=== PATIENT | female | born 1975 | race Hispanic/Latino ===

== ENCOUNTER 2018-04-13 13:27 | Inpatient (IN) | payer MEDICAID ==
[2018-04-13] MEDS ORDERED: VASELINE LIP THERAPY TP PRN (13:43)
[2018-04-13] MEDS ORDERED: ARTIFICIAL TEARS OPHTH OINT OU PRN (13:43)
--- NOTE | 2018-04-13 13:57 | Cat Scan Report ---
FINAL REPORT EXAM: CT HEAD/BRAIN WO CON HISTORY: neuro deficits <6hrs or sx present upon awakening TECHNIQUE: CT of the Head without IV contrast. PRIORS: CT head December 26, 2017. FINDINGS: Decreased attenuation regions in the periventricular and subcortical white matter are nonspecific and may represent small vessel ischemic disease, encephalopathy, edema, or a demyelinating process. Smal l vessel ischemic disease (leukoaroaiosis) favored. Vascular calcifications. Right temporal occipital and left occipital encephalomalacia is probably related to chronic ischemia and is unchanged compared to the prior. Also chronic lacunar type infarcts in both basal ganglia and the right thalamus. There is no evidence for acute ischemia. There is no hemorrhage. There is no midline shift. There is no hydrocephalus. There is no mass. Age appropriate perdue-white matter attenuation is noted. Iidy-ut-lrddmacl atrophy. There is no calvarial fracture. The temporal bones demonstrate aerated mastoid air cells. The middle ears appear unremarkable. Paranasal sinuses are unremarkable. Globes are intact. IMPRESSION: No acute intracranial findings. Chronic ischemic disease. Atrophy, mild to moderate.
[2018-04-13 14:01] LABS: Basophils # (Auto) 0.1 K/mm3 (0.0-0.1); Basophils % (Auto) 0.6 % (0.0-1.8); Eosinophils # (Auto) 0.2 K/mm3 (0.0-0.4); Eosinophils % (Auto) 2.1 % (0.0-4.3); Hematocrit 41.8 % (30.3-42.9); Lymphocytes # (Auto) 1.9 K/mm3 (1.2-5.4); Lymphocytes % (Auto) 20.3 % (13.4-35.0); Mean Corpuscular HGB Conc 31 % (30-34); Mean Corpuscular Volume 103 fl (79-97); Monocytes # (Auto) 0.4 K/mm3 (0.0-0.8); Monocytes % (Auto) 3.9 % (0.0-7.3); Platelet Count 238 K/mm3 (140-440); Red Blood Count 4.06 M/mm3 (3.65-5.03); Red Cell Distribution Width 16.8 % (13.2-15.2)
[2018-04-13 14:03] LABS: INR 1.07 (0.87-1.13)
[2018-04-13 14:04] LABS: Partial Thromboplastin Time 28.9 Sec. (24.2-36.6)
[2018-04-13] MEDS: ATIVAN 100 MG in NACL 0.9% 50 ML, VIAFLEX EMPTY CONTAINER 0 ML IV SCH ×2 (14:15→15:38)
--- NOTE | 2018-04-13 14:21 | Emergency Department Report ---
ED General Adult HPI - General Chief complaint: Neuro Symptoms/Deficit Stated complaint: AMS Time Seen by Provider: 04/13/18 13:40 Source: EMS Mode of arrival: Stretcher Limitations: No Limitations - History of Present Illness Initial comments: 42-year-old female who summoned the EMS with a complaint of chest pain. She was loaded into the ambulance whereupon the medics noted that she had apparent conjugate gaze deviation to the right. She was partially able to answer questions but she was becoming altered. In route to the hospital she had a generalized seizure. She was given 2 mg of Ativan and arrived in impending respiratory failure. She was not able to give any historical information as she was obviously postictal and sedated. Limited information was available from a cousin. She believed that the patient had COPD and thought she might be on a mask at night. She is apparently tobacco dependent and presents with a open [employer] cigarette box. Medics additionally tell me that the patient has radiated her duran on her legs. Suspect that she had altered mental status for some time. She was admitted in February 2018 for a febrile illness, CHF and possible pulmonary infection: 41-year-old presented with acute respiratory failure secondary to systolic congestive heart failure. Patient brought and diuresed well placed on diuretics beta natividad. TEOFILO inhibitor added today secondary to history of diabetes and suboptimal control of hypertension. Patient defervesced well over 3-4 days was stable for discharge. Patient also had history of coronary disease at present remains chest pain-free continue to treat conservatively. Chronic kidney disease this also exacerbated patient's volume overload. Patient was stays 5 and electrolytes and renal function improved. While patient will need hemodialysis in the very new future did not needed at this time. 2 and stable for discharge. Disposition: - TO HOME OR SELFCARE -: unknown - Related Data Home Medications Medication Instructions Recorded Confirmed Last Taken Lispro Insulin [Humalog] 15 unit SQ BID 07/17/17 02/17/18 02/16/18 Previous Rx's Medication Instructions Recorded Last Taken Type Aspirin EC [Aspirin Enteric Coated 81 mg PO QDAY #30 tablet 07/22/17 02/17/18 Rx TAB] 81mg Apixaban [Eliquis] 2.5 mg PO BID 60 Days tablet 02/22/18 Unknown Rx AtorvaSTATin [Lipitor] 20 mg PO QHS #30 tablet 02/22/18 Unknown Rx Furosemide [Lasix TAB] 80 mg PO 0600,1800 #30 tablet 02/22/18 Unknown Rx Insulin Glargine,Hum.rec.anlog 20 unit SQ QHS #30 insuln.pen 02/22/18 Unknown Rx [Lantus Solostar] Lisinopril [Zestril TAB] 20 mg PO QDAY #30 tablet 02/22/18 Unknown Rx Lispro Insulin [Humalog] 0 unit SUB-Q ACHS units 02/22/18 Unknown Rx Metoprolol Xl [Metoprolol 25 mg PO QDAY #30 tablet 02/22/18 Unknown Rx SUCCINATE ER TAB] Potassium Chloride [K-Dur] 20 meq PO Q12HR #60 tablet 02/22/18 Unknown Rx hydrALAZINE [Apresoline TAB] 25 mg PO TID #90 tablet 02/22/18 Unknown Rx levETIRAcetam [Keppra TAB] 500 mg PO BID #90 tablet 02/22/18 Unknown Rx oxyCODONE /ACETAMINOPHEN [Percocet 1 tab PO Q6H PRN #30 tablet 02/22/18 Unknown Rx 5/325 mg] Allergies Allergy/AdvReac Type Severity Reaction Status Date / Time No Known Allergies Allergy Verified 06/20/13 01:16 ED Review of Systems ROS: Stated complaint: AMS Other details as noted in HPI Comment: Unobtainable due to pts medical conditions ED Past Medical Hx - Past Medical History Previous Medical History?: Yes Hx Hypertension: Yes Hx CVA: Yes Hx Heart Attack/AMI: Yes Hx Congestive Heart Failure: Yes Hx Diabetes: Yes Hx Deep Vein Thrombosis: No Hx Liver Disease: No Hx Seizures: Yes (New onset x last 4 months) Hx Asthma: No Hx COPD: Yes Hx Dementia: No Additional medical history: Pulmonary hypertension and dilated right atrium or neck. Left ventricular function within normal limits.Patient says she is on stage 4 of renal failure.But not on dialysis. legally blind - Surgical History Past Surgical History?: Yes Hx Coronary Stent: No Hx Pacemaker: No Hx Internal Defibrillator: No Additional Surgical History: Bilateral cataracts and laser surgery for diabetic retinopathy with residual decreased vision in the left eye even prior to today. - Social History Smoking Status: Heavy Tobacco Smoker Substance Use Type: None - Medications Home Medications: Home Medications Medication Instructions Recorded Confirmed Last Taken Type Lispro Insulin [Humalog] 15 unit SQ BID 07/17/17 02/17/18 02/16/18 History Aspirin EC [Aspirin Enteric Coated 81 mg PO QDAY #30 tablet 07/22/17 02/17/18 02/17/18 Rx TAB] 81mg Apixaban [Eliquis] 2.5 mg PO BID 60 Days tablet 02/22/18 Unknown Rx AtorvaSTATin [Lipitor] 20 mg PO QHS #30 tablet 02/22/18 Unknown Rx Furosemide [Lasix TAB] 80 mg PO 0600,1800 #30 tablet 02/22/18 Unknown Rx Insulin Glargine,Hum.rec.anlog 20 unit SQ QHS #30 insuln.pen 02/22/18 Unknown Rx [Lantus Solostar] Lisinopril [Zestril TAB] 20 mg PO QDAY #30 tablet 02/22/18 Unknown Rx Lispro Insulin [Humalog] 0 unit SUB-Q ACHS units 02/22/18 Unknown Rx Metoprolol Xl [Metoprolol 25 mg PO QDAY #30 tablet 02/22/18 Unknown Rx SUCCINATE ER TAB] Potassium Chloride [K-Dur] 20 meq PO Q12HR #60 tablet 02/22/18 Unknown Rx hydrALAZINE [Apresoline TAB] 25 mg PO TID #90 tablet 02/22/18 Unknown Rx levETIRAcetam [Keppra TAB] 500 mg PO BID #90 tablet 02/22/18 Unknown Rx oxyCODONE /ACETAMINOPHEN [Percocet 1 tab PO Q6H PRN #30 tablet 02/22/18 Unknown Rx 5/325 mg] ED Physical Exam - General Limitations: Altered Mental Status (apparently postictal) General appearance: obtunded - Head Head exam: Present: atraumatic - Eye Eye exam: Present: PERRL (pupils are reactive and equal). Absent: scleral icterus - ENT ENT exam: Present: normal orophraynx - Neck Neck exam: Absent: tenderness, meningismus - Respiratory Respiratory exam: Present: rhonchi - Cardiovascular Cardiovascular Exam: Present: regular rate, normal rhythm. Absent: systolic murmur, diastolic murmur, rubs, gallop - GI/Abdominal GI/Abdominal exam: Present: soft, normal bowel sounds. Absent: distended, tenderness, guarding, rebound - Extremities Exam Extremities exam: Present: normal capillary refill, other (apparent second- degree burn pretibial area). Absent: calf tenderness (no apparent swelling) - Neurological Exam Neurological exam: Present: altered (postictal), CN II-XII intact (no obvious cranial nerve deficit). Absent: motor sensory deficit (no gross lateralizing weakness) - Skin Skin exam: Present: other (secondary burn pretibial leg) ED Course Vital Signs 04/13/18 04/13/18 04/13/18 13:24 13:30 13:32 Temperature Pulse Rate 110 H 105 H 95 H Respiratory 24 29 H Rate Blood Pressure 141/74 197/103 Blood Pressure [Right] O2 Sat by Pulse 100 100 16 L Oximetry 04/13/18 04/13/18 04/13/18 13:49 14:00 14:07 Temperature Pulse Rate 98 H 94 H 92 H Respiratory 29 H 24 Rate Blood Pressure 180/103 175/90 Blood Pressure [Right] O2 Sat by Pulse 100 100 Oximetry 04/13/18 04/13/18 04/13/18 14:15 14:24 14:30 Temperature 99.6 F Pulse Rate 92 H 90 93 H Respiratory 18 20 22 Rate Blood Pressure 161/95 161/95 Blood Pressure 161/95 [Right] O2 Sat by Pulse 99 100 100 Oximetry 04/13/18 04/13/18 14:46 15:00 Temperature Pulse Rate 93 H 89 Respiratory 21 20 Rate Blood Pressure 168/93 174/98 Blood Pressure [Right] O2 Sat by Pulse 100 100 Oximetry - Reevaluation(s) Reevaluation #1: Patient remains adequately sedated on the vent. She is admitted to the hospitalist service for further care and evaluation. She was given Lasix for apparent pulmonary edema. I believe her lactic acid level was simply secondary to her seizure. She was given a gram of Keppra. She is currently on an Ativan drip. She's had no further seizure activity. The patient does not qualify for an NIH stroke score. He had active icterus and this would be an applicable. She is not suspected of stroke. She is not a candidate for TPA due to active icterus anyway. She was not found to have apparent lateralizing findings on her neurological exam. CT of her head was negative for acute process. 04/13/18 15:37 04/13/18 15:41 The patient was found to have a chest x-ray consistent with pulmonary edema with chronic interstitial changes compared to her previous. I couldn't totally exclude pulmonary infiltrate. She also has an apparently infected urine. She has additionally second-degree burn of her leg. Therefore she will be started on Zosyn and vancomycin. I think her elevated lactic acid level may very well be due to her active generalized seizure that. Serial testing is ordered. Reevaluation #2: Since last creatinine was noted to be over 4 as it is today. 04/13/18 15:48 - Intubation Time Out Performed: No Sedative: Etomidate Paralytic: Succinylcholine Laryngoscope: Mervin Size: 4 ET Tube Size: 7.5 Tube Secured Depth (cm): 22 Tube Secured Location: lips Tube Placement Confirmation: visualized tube passing t Patient Tolerated Procedure: well Intubation Complications: none (single intubation attempt supervised ) ED Medical Decision Making - Lab Data Result diagrams: 04/13/18 13:41 04/13/18 13:59 Laboratory Results - last 24 hr 04/13/18 04/13/18 04/13/18 13:41 13:41 13:41 WBC 9.5 RBC 4.06 Hgb 13.0 Hct 41.8 MCV 103 H MCH 32 MCHC 31 RDW 16.8 H Plt Count 238 Lymph % (Auto) 20.3 Perkins % (Auto) 3.9 Eos % (Auto) 2.1 Baso % (Auto) 0.6 Lymph # 1.9 Perkins # 0.4 Eos # 0.2 Baso # 0.1 Seg Neutrophils % 73.1 H Seg Neutrophils # 7.0 PT 14.3 INR 1.07 APTT 28.9 Thrombin Time 17.3 POC ABG pH POC ABG pCO2 POC ABG pO2 POC ABG HCO3 POC ABG Total CO2 POC ABG O2 Sat POC ABG Base Excess FiO2 04/13/18 14:07 WBC RBC Hgb Hct MCV MCH MCHC RDW Plt Count Lymph % (Auto) Perkins % (Auto) Eos % (Auto) Baso % (Auto) Lymph # Perkins # Eos # Baso # Seg Neutrophils % Seg Neutrophils # PT INR APTT Thrombin Time POC ABG pH 7.262 L POC ABG pCO2 32.8 L POC ABG pO2 94 POC ABG HCO3 14.8 POC ABG Total CO2 16 POC ABG O2 Sat 96 POC ABG Base Excess -12 FiO2 30 Laboratory Results - last 24 hr 0104/13/18 04/13/18 13:41 13:41 13:41 WBC 9.5 RBC 4.06 Hgb 13.0 Hct 41.8 MCV 103 H MCH 32 MCHC 31 RDW 16.8 H Plt Count 238 Lymph % (Auto) 20.3 Perkins % (Auto) 3.9 Eos % (Auto) 2.1 Baso % (Auto) 0.6 Lymph # 1.9 Perkins # 0.4 Eos # 0.2 Baso # 0.1 Seg Neutrophils % 73.1 H Seg Neutrophils # 7.0 PT 14.3 INR 1.07 APTT 28.9 Thrombin Time 17.3 POC ABG pH POC ABG pCO2 POC ABG pO2 POC ABG HCO3 POC ABG Total CO2 POC ABG O2 Sat POC ABG Base Excess FiO2 Sodium Potassium Chloride Carbon Dioxide Anion Gap BUN Creatinine Estimated GFR BUN/Creatinine Ratio Glucose POC Glucose Lactic Acid Calcium Magnesium Total Bilirubin Direct Bilirubin Indirect Bilirubin AST ALT Alkaline Phosphatase Ammonia Total Creatine Kinase CK-MB (CK-2) CK-MB (CK-2) Rel Index Troponin T NT-Pro-B Natriuret Pep Total Protein Albumin Albumin/Globulin Ratio Lipase Urine Color Urine Turbidity Urine pH Ur Specific Wirt Urine Protein Urine Glucose (UA) Urine Ketones Urine Blood Urine Nitrite Urine Bilirubin Urine Urobilinogen Ur Leukocyte Esterase Urine WBC (Auto) Urine RBC (Auto) U Epithel Cells (Auto) Urine Bacteria (Auto) Urine Mucus Urine Yeast (Budding) Urine Opiates Screen Urine Methadone Screen Ur Barbiturates Screen Ur Phencyclidine Scrn Ur Amphetamines Screen U Benzodiazepines Scrn Urine Cocaine Screen U Marijuana (THC) Screen Drugs of Abuse Note 04/13/18 04/13/18 04/13/18 13:59 13:59 13:59 WBC RBC Hgb Hct MCV MCH MCHC RDW Plt Count Lymph % (Auto) Perkins % (Auto) Eos % (Auto) Baso % (Auto) Lymph # Perkins # Eos # Baso # Seg Neutrophils % Seg Neutrophils # PT INR APTT Thrombin Time POC ABG pH POC ABG pCO2 POC ABG pO2 POC ABG HCO3 POC ABG Total CO2 POC ABG O2 Sat POC ABG Base Excess FiO2 Sodium 136 L Potassium 4.8 Chloride 104.3 Carbon Dioxide 13 L Anion Gap 24 BUN 30 H Creatinine 4.0 H Estimated GFR 12 BUN/Creatinine Ratio 8 Glucose 210 H POC Glucose Lactic Acid 3.10 H* Calcium 8.1 L Magnesium 1.90 Total Bilirubin 0.50 Direct Bilirubin 0.2 Indirect Bilirubin 0.3 AST 13 ALT 7 Alkaline Phosphatase 130 H Ammonia 65.0 H Total Creatine Kinase 92 CK-MB (CK-2) 3.7 CK-MB (CK-2) Rel Index 4.0 Troponin T 0.010 NT-Pro-B Natriuret Pep 31069 H Total Protein 6.7 Albumin 2.9 L Albumin/Globulin Ratio 0.8 Lipase 44 Urine Color Urine Turbidity Urine pH Ur Specific Wirt Urine Protein Urine Glucose (UA) Urine Ketones Urine Blood Urine Nitrite Urine Bilirubin Urine Urobilinogen Ur Leukocyte Esterase Urine WBC (Auto) Urine RBC (Auto) U Epithel Cells (Auto) Urine Bacteria (Auto) Urine Mucus Urine Yeast (Budding) Urine Opiates Screen Urine Methadone Screen Ur Barbiturates Screen Ur Phencyclidine Scrn Ur Amphetamines Screen U Benzodiazepines Scrn Urine Cocaine Screen U Marijuana (THC) Screen Drugs of Abuse Note 04/13/18 04/13/18 04/13/18 14:07 14:26 14:26 WBC RBC Hgb Hct MCV MCH MCHC RDW Plt Count Lymph % (Auto) Perkins % (Auto) Eos % (Auto) Baso % (Auto) Lymph # Perkins # Eos # Baso # Seg Neutrophils % Seg Neutrophils # PT INR APTT Thrombin Time POC ABG pH 7.262 L POC ABG pCO2 32.8 L POC ABG pO2 94 POC ABG HCO3 14.8 POC ABG Total CO2 16 POC ABG O2 Sat 96 POC ABG Base Excess -12 FiO2 30 Sodium Potassium Chloride Carbon Dioxide Anion Gap BUN Creatinine Estimated GFR BUN/Creatinine Ratio Glucose POC Glucose Lactic Acid Calcium Magnesium Total Bilirubin Direct Bilirubin Indirect Bilirubin AST ALT Alkaline Phosphatase Ammonia Total Creatine Kinase CK-MB (CK-2) CK-MB (CK-2) Rel Index Troponin T NT-Pro-B Natriuret Pep Total Protein Albumin Albumin/Globulin Ratio Lipase Urine Color Diane Urine Turbidity Cloudy Urine pH 5.0 Ur Specific Wirt 1.017 Urine Protein >500 Urine Glucose (UA) >=500 Urine Ketones Neg Urine Blood Neg Urine Nitrite Neg Urine Bilirubin Neg Urine Urobilinogen < 2.0 Ur Leukocyte Esterase Neg Urine WBC (Auto) 22.0 H Urine RBC (Auto) 17.0 U Epithel Cells (Auto) 3.0 Urine Bacteria (Auto) 4+ Urine Mucus Few Urine Yeast (Budding) 3+ Urine Opiates Screen Presumptive negative Urine Methadone Screen Presumptive negative Ur Barbiturates Screen Presumptive negative Ur Phencyclidine Scrn Presumptive negative Ur Amphetamines Screen Presumptive negative U Benzodiazepines Scrn Presumptive negative Urine Cocaine Screen Presumptive negative U Marijuana (THC) Screen Presumptive negative Drugs of Abuse Note Disclamer 04/13/18 14:30 WBC RBC Hgb Hct MCV MCH MCHC RDW Plt Count Lymph % (Auto) Perkins % (Auto) Eos % (Auto) Baso % (Auto) Lymph # Perkins # Eos # Baso # Seg Neutrophils % Seg Neutrophils # PT INR APTT Thrombin Time POC ABG pH POC ABG pCO2 POC ABG pO2 POC ABG HCO3 POC ABG Total CO2 POC ABG O2 Sat POC ABG Base Excess FiO2 Sodium Potassium Chloride Carbon Dioxide Anion Gap BUN Creatinine Estimated GFR BUN/Creatinine Ratio Glucose POC Glucose 181 H Lactic Acid Calcium Magnesium Total Bilirubin Direct Bilirubin Indirect Bilirubin AST ALT Alkaline Phosphatase Ammonia Total Creatine Kinase CK-MB (CK-2) CK-MB (CK-2) Rel Index Troponin T NT-Pro-B Natriuret Pep Total Protein Albumin Albumin/Globulin Ratio Lipase Urine Color Urine Turbidity Urine pH Ur Specific Wirt Urine Protein Urine Glucose (UA) Urine Ketones Urine Blood Urine Nitrite Urine Bilirubin Urine Urobilinogen Ur Leukocyte Esterase Urine WBC (Auto) Urine RBC (Auto) U Epithel Cells (Auto) Urine Bacteria (Auto) Urine Mucus Urine Yeast (Budding) Urine Opiates Screen Urine Methadone Screen Ur Barbiturates Screen Ur Phencyclidine Scrn Ur Amphetamines Screen U Benzodiazepines Scrn Urine Cocaine Screen U Marijuana (THC) Screen Drugs of Abuse Note - EKG Data -: EKG Interpreted by Me EKG shows normal: sinus rhythm Rate: tachycardia - EKG Data Interpretation: other (lot of artifact intraventricular conduction delay. No acute ischemic changes prehospital EKG other EKG is pending) - Radiology Data Radiology results: report reviewed Pulmonary edema and chronic lung Critical Care Time: Yes Critical care time in (mins) excluding proc time.: 90 Critical care attestation.: If time is entered above; I have spent that time in minutes in the direct care of this critically ill patient, excluding procedure time. 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 Diabetes mellitus complication status: with kidney complications Diabetes mellitus complication detail: with chronic kidney disease Chronic kidney disease stage: stage 4 (severe) Qualified Code(s): E11.22 - Type 2 diabetes mellitus with diabetic chronic kidney disease; N18.4 - Chronic kidney disease, stage 4 (severe); Z79.4 - 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
[2018-04-13] MEDS: ATIVAN IV PRN ×2 (14:22→15:40)
[2018-04-13 14:29] LABS: Creatine Kinase MB 3.7 ng/mL (0.0-4.0)
[2018-04-13 14:31] LABS: Albumin 2.9 g/dL (3.9-5); Bilirubin,Direct 0.2 mg/dL (0-0.2); Calcium 8.1 mg/dL (8.4-10.2)
[2018-04-13 14:45] LABS: Bacteria,Urine 4+ /HPF (Negative); Bilirubin,Urine NEG (Negative); Blood,Urine NEG (Negative); Color,Urine Amber (Yellow); Mucus,Urine FEW /HPF; Urobilinogen,Urine < 2.0 mg/dL (<2.0)
[2018-04-13 14:49] LABS: Amphetamine Screen,Urine PRESUMPTIVE NEGATIVE; Benzodiazepines Screen,Urine PRESUMPTIVE NEGATIVE; Cannabinoid Screen,Urine PRESUMPTIVE NEGATIVE; Cocaine Screen,Urine PRESUMPTIVE NEGATIVE; Methadone Screen,Urine PRESUMPTIVE NEGATIVE; Opiate Screen,Urine PRESUMPTIVE NEGATIVE
[2018-04-13] MEDS ORDERED: LASIX IV ONE (14:49)
[2018-04-13 14:54] LABS: Protein,Urine >500 mg/dL (Negative)
--- NOTE | 2018-04-13 14:55 | History and Physical Report ---
History of Present Illness Chief complaint: Unresponsive History of present illness: 42 YO Female with HTN, Systolic CHF(EF 20%), CVA, DM, Seizure Disorder, COPD, Pulmonary HTN, CAD S/P Stent Placement presents to ED for evaluation. Pt is intubated and unable to provide history at time of exam. history taken from EMS. As per EMS, they were notified for Chest pain. Upon arrival the patient was found to have a witnessed seizure. Pt was treated with Ativan and subsequently transported to [facility] for further care and evaluation. Pt seen and evaluated in ED and found to have respiratory distress, and is unable to protect her airway. Pt intubate and placed on vent support for Acute Respiratory Falure. Pt also found to have CHF decompensation. Pt admitted to ICU. Pulmonary consulted in ED, Cardiology consulted in ED. No further history obtainable. Past History Past Medical History: COPD, heart failure, hypertension, seizures, stroke, other (Pulmonary HTN) Past Surgical History: cataract removal Social history: single. denies: smoking, alcohol abuse, prescription drug abuse Family history: hypertension Medications and Allergies Allergies Allergy/AdvReac Type Severity Reaction Status Date / Time No Known Allergies Allergy Verified 06/20/13 01:16 Home Medications Medication Instructions Recorded Confirmed Last Taken Type Lispro Insulin [Humalog] 15 unit SQ BID 07/17/17 02/17/18 02/16/18 History Aspirin EC [Aspirin Enteric Coated 81 mg PO QDAY #30 tablet 07/22/17 02/17/18 02/17/18 Rx TAB] 81mg Apixaban [Eliquis] 2.5 mg PO BID 60 Days tablet 02/22/18 Unknown Rx AtorvaSTATin [Lipitor] 20 mg PO QHS #30 tablet 02/22/18 Unknown Rx Furosemide [Lasix TAB] 80 mg PO 0600,1800 #30 tablet 02/22/18 Unknown Rx Insulin Glargine,Hum.rec.anlog 20 unit SQ QHS #30 insuln.pen 02/22/18 Unknown Rx [Lantus Solostar] Lisinopril [Zestril TAB] 20 mg PO QDAY #30 tablet 02/22/18 Unknown Rx Lispro Insulin [Humalog] 0 unit SUB-Q ACHS units 02/22/18 Unknown Rx Metoprolol Xl [Metoprolol 25 mg PO QDAY #30 tablet 02/22/18 Unknown Rx SUCCINATE ER TAB] Potassium Chloride [K-Dur] 20 meq PO Q12HR #60 tablet 02/22/18 Unknown Rx hydrALAZINE [Apresoline TAB] 25 mg PO TID #90 tablet 02/22/18 Unknown Rx levETIRAcetam [Keppra TAB] 500 mg PO BID #90 tablet 02/22/18 Unknown Rx oxyCODONE /ACETAMINOPHEN [Percocet 1 tab PO Q6H PRN #30 tablet 02/22/18 Unknown Rx 5/325 mg] Active Meds: Active Medications Hydrophilic Ointment (Vaseline Lip Therapy) 1 applic TP Q2HR PRN PRN Reason: Dry Lips Lorazepam 100 mg/ Sodium Chloride/ Miscellaneous Information 100 mls @ 1 mls/hr IV TITR CECILE; Protocol Lorazepam (Ativan) 2 mg IV Q10MIN PRN PRN Reason: Agitation Last Admin: 04/13/18 14:22 Dose: 2 mg Documented by: Multi-Ingred Cream/Lotion/Oil/Oint (Artificial Tears Ophth Oint) 1 applic OU Q4HR PRN PRN Reason: Dry Eye(s) Review of Systems ROS unobtainable: due to endotracheal tube Exam - Constitutional Vitals: Temp Pulse Resp BP Pulse Ox 99.6 F 90 20 161/95 100 04/13/18 14:24 04/13/18 14:24 04/13/18 14:24 04/13/18 14:24 04/13/18 14:24 General appearance: Present: severe distress - EENT Eyes: Present: miosis - Neck Neck: Present: supple, normal ROM - Respiratory Respiratory effort: labored Respiratory: bilateral: diminished, rhonchi - Cardiovascular Heart Sounds: Present: S1 & S2. Absent: rub, click - Extremities Extremity abnormal: edema Peripheral Pulses: within normal limits - Abdominal General gastrointestinal: Present: soft, non-tender, non-distended, normal bowel sounds Female genitourinary: Present: normal - Integumentary Integumentary: Present: clear, warm, dry - Musculoskeletal Musculoskeletal: generalized weakness - Psychiatric Psychiatric: no appropriate mood/affect, no intact judgment & insight, no memory intact - Neurologic Neurologic: moves all extremities, no gait normal Results - Labs CBC & Chem 7: 04/13/18 13:41 04/13/18 13:59 Labs: Abnormal lab results 04/13/18 04/13/18 04/13/18 Range/Units 13:41 13:59 13:59 MCV 103 H (79-97) fl RDW 16.8 H (13.2-15.2) % Seg Neutrophils % 73.1 H (40.0-70.0) % POC ABG pH (7.35-7.45) POC ABG pCO2 (35-45) Sodium 136 L (137-145) mmol/L Carbon Dioxide 13 L (22-30) mmol/L BUN 30 H (7-17) mg/dL Creatinine 4.0 H (0.7-1.2) mg/dL Glucose 210 H (65-100) mg/dL POC Glucose (70-105) Lactic Acid 3.10 H* (0.7-2.0) mmol/L Calcium 8.1 L (8.4-10.2) mg/dL Alkaline Phosphatase 130 H (35-129) units/L Ammonia (25-60) umol/L NT-Pro-B Natriuret Pep 99058 H (0-450) pg/mL Albumin 2.9 L (3.9-5) g/dL Urine WBC (Auto) (0.0-6.0) /HPF 04/13/18 04/13/18 04/13/18 Range/Units 13:59 14:07 14:26 MCV (79-97) fl RDW (13.2-15.2) % Seg Neutrophils % (40.0-70.0) % POC ABG pH 7.262 L (7.35-7.45) POC ABG pCO2 32.8 L (35-45) Sodium (137-145) mmol/L Carbon Dioxide (22-30) mmol/L BUN (7-17) mg/dL Creatinine (0.7-1.2) mg/dL Glucose (65-100) mg/dL POC Glucose (70-105) Lactic Acid (0.7-2.0) mmol/L Calcium (8.4-10.2) mg/dL Alkaline Phosphatase (35-129) units/L Ammonia 65.0 H (25-60) umol/L NT-Pro-B Natriuret Pep (0-450) pg/mL Albumin (3.9-5) g/dL Urine WBC (Auto) 22.0 H (0.0-6.0) /HPF 04/13/18 Range/Units 14:30 MCV (79-97) fl RDW (13.2-15.2) % Seg Neutrophils % (40.0-70.0) % POC ABG pH (7.35-7.45) POC ABG pCO2 (35-45) Sodium (137-145) mmol/L Carbon Dioxide (22-30) mmol/L BUN (7-17) mg/dL Creatinine (0.7-1.2) mg/dL Glucose (65-100) mg/dL POC Glucose 181 H (70-105) Lactic Acid (0.7-2.0) mmol/L Calcium (8.4-10.2) mg/dL Alkaline Phosphatase (35-129) units/L Ammonia (25-60) umol/L NT-Pro-B Natriuret Pep (0-450) pg/mL Albumin (3.9-5) g/dL Urine WBC (Auto) (0.0-6.0) /HPF Assessment and Plan - Patient Problems (1) Respiratory failure Current Visit: Yes Status: Acute Qualifiers: Chronicity: acute Respiratory failure complication: hypoxia Qualified Code(s): J96.01 - Acute respiratory failure with hypoxia Plan to address problem: Admit to ICU, Intubated, placed on vent support. Pulmonary consulted in ED, wean vent as tolerated, SBT daily, ABG, sedation holiday, The high probability of a clinically significant, sudden or life threatening deterioration of the [Pulmonary, Neuro, renal] system(s) required my full and direct attention, intervention and personal management. The aggregate critical care time was [65] minutes. This time is in addition to time spent performing reported procedures but includes the following: [x] Data Review and interpretation [x] Patient assessment and monitoring of vital signs [x] Documentation [x] Medication orders and management (2) CHF (congestive heart failure) Current Visit: Yes Status: Acute Qualifiers: Heart failure type: systolic Heart failure chronicity: acute on chronic Qualified Code(s): I50.23 - Acute on chronic systolic (congestive) heart failure Plan to address problem: Admit to ICU, cardiology consulted in ED, Strict I/O, monitor uop q shift, daily weight, afterload reduction, pulse oximetry, (3) Encephalopathy Current Visit: Yes Status: Acute Plan to address problem: CT Head, neuro check, supportive care, seizure precautions. (4) ARF (acute renal failure) with tubular necrosis Current Visit: Yes Status: Acute Plan to address problem: IVF resuscitation as tolerated, nephrology consulted, (5) Acidosis Current Visit: Yes Status: Acute Plan to address problem: Iv bicarbonate therapy, supportive care, nephrology consulted (6) Seizure Current Visit: Yes Status: Acute Plan to address problem: Seizure precautions, AED therapy, neuro checks, keppra level (7) DVT prophylaxis Current Visit: Yes Status: Acute Plan to address problem: SCD to BLE while in bed
[2018-04-13] MEDS ORDERED: SODIUM CHLORIDE FLUSH SYRINGE 10 ML IV PRN (14:57)
[2018-04-13] MEDS ORDERED: PROVENTIL IH PRN (14:57)
--- NOTE | 2018-04-13 15:13 | XRay Report ---
FINAL REPORT EXAM: XR CHEST 1V AP HISTORY: ETT placement TECHNIQUE: AP portable view of the chest PRIORS: CXR 02/17/2018 FINDINGS: Lines, tubes, and devices: Endotracheal tube terminates at 2.7 cm above the riaz. Lungs and pleura: Trachea is normal in position. Perihilar vascular congestion is increased suggestin g active CHF with possible early pulmonary edema. There are patchy infiltrates present bilaterally. Cardiomediastinal silhouette: Heart is enlarged. Prominence of the main pulmonary artery segment is s table. Other: Bony structures are intact. IMPRESSION: 1. Endotracheal tube is 2.7 cm above the riaz 2. Active CHF with early possible pulmonary edema 3. Stable cardiomegaly
[2018-04-13] MEDS ORDERED: ATIVAN ONE (15:47)
[2018-04-13] MEDS ORDERED: KETALAR IV ONE (15:48)
[2018-04-13] MEDS ORDERED: LASIX ONE (15:50)
[2018-04-13] MEDS ORDERED: KETAMINE HCL IV ONE (16:00)
[2018-04-13] MEDS: DIPRIVAN 10 MG/ML 1,000 MG/100 ML BOTTLE IV SCH (16:03)
[2018-04-13] MEDS ORDERED: KEPPRA 500 MG/NS 0.82% 100 ML 500 MG/100 ML BAG IV ONE (18:04)
[2018-04-13] MEDS ORDERED: KEPPRA 1,000 MG/NS 0.75% 100ML 1,000 MG/100 ML BAG IV ONE (18:04)
[2018-04-13] MEDS ORDERED: KEPPRA 1,000 MG in NACL 0.9% 100 ML IV ONE (19:00)
[2018-04-13] MEDS: HumaLOG SUB-Q SCH (20:32)
[2018-04-13] MEDS: K-DUR PO SCH (21:29)
[2018-04-13] MEDS: KEPPRA PO SCH (21:29)
[2018-04-13] MEDS: SODIUM CHLORIDE FLUSH SYRINGE 10 ML IV SCH (21:32)
[2018-04-13] MEDS ORDERED: VERSED IV ONE (23:00)
[2018-04-13] MEDS ORDERED: QUELICIN ONE (23:00)
[2018-04-13] MEDS ORDERED: KETALAR ONE (23:00)
[2018-04-13] MEDS ORDERED: AMIDATE IV ONE (23:00)
[2018-04-14] MEDS: DIPRIVAN 10 MG/ML 1,000 MG/100 ML BOTTLE IV SCH (01:30)
--- NOTE | 2018-04-14 02:43 | XRay Report ---
FINAL REPORT PROCEDURE: XR CHEST 1V AP TECHNIQUE: Chest radiograph anteroposterior view. CPT 49764 HISTORY: follow up respiratory failure COMPARISON: 04/13/2018 FINDINGS: Heart: Normal. Mediastinum/Vessels: Normal. Lungs/Pleural space: The lungs are expanded. There are bilateral perihilar pulmonary infiltrates. The re is no pleural effusion or pneumothorax.. Bony thorax: No acute osseous abnormality. Life support devices: There is an endotracheal tube in the mid trachea.. IMPRESSION: Heart size is normal.. The lungs are expanded. There are bilateral perihilar pulmonary infiltrates. There is no pleural effu chirag or pneumothorax.. There is an endotracheal tube in the mid trachea..
[2018-04-14] MEDS: HumaLOG SUB-Q SCH (08:00)
[2018-04-14 08:33] LABS: Basophils % (Auto) 0.6 % (0.0-1.8); Eosinophils # (Auto) 0.1 K/mm3 (0.0-0.4); Eosinophils % (Auto) 0.7 % (0.0-4.3); Hematocrit 39.2 % (30.3-42.9); Hemoglobin 12.7 gm/dl (10.1-14.3); Lymphocytes # (Auto) 0.7 K/mm3 (1.2-5.4); Lymphocytes % (Auto) 9.3 % (13.4-35.0); Mean Corpuscular HGB Conc 32 % (30-34); Mean Corpuscular Volume 98 fl (79-97); Monocytes # (Auto) 0.4 K/mm3 (0.0-0.8); Monocytes % (Auto) 5.6 % (0.0-7.3); Platelet Count 182 K/mm3 (140-440); Red Blood Count 4.01 M/mm3 (3.65-5.03); Red Cell Distribution Width 15.9 % (13.2-15.2)
[2018-04-14 08:51] LABS: Albumin 2.6 g/dL (3.9-5); Calcium 8.1 mg/dL (8.4-10.2)
--- NOTE | 2018-04-14 09:02 | Progress Note ---
Assessment and Plan Assessment and plan: Acute respiratory failure. Intubated, sedated Pulm following Breakthrough seizures in patient with seizure disorder. Increase keppra to 750bid - she was on 500mg bid at home seizure precautions Acute on chronic systolic CHF. cardiology following Ischemic cardiomyopathy BLAS Cr 3.9 today. Nephrology following COPD CAD s/p stent placement Paroxysmal atrial fib. Resume Eliquis History of pulmonary hypertension History of stroke Full code status. History Interval history: Patient had chest pain, seizures, acute respiratory failure, intubated Hospitalist Physical - Physical exam Narrative exam: GEN: Not in acute distress, Obese HEENT: Normocephalic, atraumatic, Neck: supple, No JVD Lungs: Bilateral crackles, no wheeze Heart: S1 and S2 regular, no murmurs, rubs or gallop, Abd: soft, non tender, non distended, normal bowel sounds Ext: No edema, no clubbing or cyanosis Neuro: Intubated, sedated - Constitutional Vitals: Temp Pulse Resp BP Pulse Ox 97.6 F 74 14 145/80 100 04/14/18 04:28 04/14/18 07:11 04/14/18 07:00 04/14/18 07:11 04/14/18 07:11 Results - Labs CBC & Chem 7: 04/14/18 08:01 04/14/18 11:23 Labs: Laboratory Last Values WBC 7.7 K/mm3 (4.5-11.0) 04/14/18 08:01 RBC 4.01 M/mm3 (3.65-5.03) 04/14/18 08:01 Hgb 12.7 gm/dl (10.1-14.3) 04/14/18 08:01 Hct 39.2 % (30.3-42.9) 04/14/18 08:01 MCV 98 fl (79-97) H 04/14/18 08:01 MCH 32 pg (28-32) 04/14/18 08:01 MCHC 32 % (30-34) 04/14/18 08:01 RDW 15.9 % (13.2-15.2) H 04/14/18 08:01 Plt Count 182 K/mm3 (140-440) 04/14/18 08:01 Lymph % (Auto) 9.3 % (13.4-35.0) L 04/14/18 08:01 Mcpherson % (Auto) 5.6 % (0.0-7.3) 04/14/18 08:01 Eos % (Auto) 0.7 % (0.0-4.3) 04/14/18 08:01 Baso % (Auto) 0.6 % (0.0-1.8) 04/14/18 08:01 Lymph # 0.7 K/mm3 (1.2-5.4) L 04/14/18 08:01 Mcpherson # 0.4 K/mm3 (0.0-0.8) 04/14/18 08:01 Eos # 0.1 K/mm3 (0.0-0.4) 04/14/18 08:01 Baso # 0.0 K/mm3 (0.0-0.1) 04/14/18 08:01 Seg Neutrophils % 83.8 % (40.0-70.0) H 04/14/18 08:01 Seg Neutrophils # 6.4 K/mm3 (1.8-7.7) 04/14/18 08:01 PT 14.3 Sec. (12.2-14.9) 04/13/18 13:41 INR 1.07 (0.87-1.13) 04/13/18 13:41 APTT 28.9 Sec. (24.2-36.6) 04/13/18 13:41 Thrombin Time 17.3 Sec. (15.1-19.6) 04/13/18 13:41 POC ABG pH 7.379 (7.35-7.45) 04/14/18 05:06 POC ABG pCO2 31.8 (35-45) L 04/14/18 05:06 POC ABG pO2 127 (80-105) H 04/14/18 05:06 POC ABG HCO3 18.8 04/14/18 05:06 POC ABG Total CO2 20 04/14/18 05:06 POC ABG O2 Sat 99 04/14/18 05:06 POC ABG Base Excess -6 04/14/18 05:06 FiO2 30 % 04/14/18 05:06 Sodium 139 mmol/L (137-145) 04/14/18 08:01 Potassium 4.1 mmol/L (3.6-5.0) 04/14/18 08:01 Chloride 106.7 mmol/L (98-107) 04/14/18 08:01 Carbon Dioxide 18 mmol/L (22-30) L 04/14/18 08:01 Anion Gap 18 mmol/L 04/14/18 08:01 BUN 30 mg/dL (7-17) H 04/14/18 08:01 Creatinine 4.1 mg/dL (0.7-1.2) H 04/14/18 08:01 Estimated GFR 12 ml/min 04/14/18 08:01 BUN/Creatinine Ratio 7 % 04/14/18 08:01 Glucose 87 mg/dL (65-100) 04/14/18 08:01 POC Glucose 77 (70-105) 04/13/18 20:34 Lactic Acid 1.10 mmol/L (0.7-2.0) 04/13/18 16:23 Calcium 8.1 mg/dL (8.4-10.2) L 04/14/18 08:01 Phosphorus 4.90 mg/dL (2.5-4.5) H 04/14/18 08:01 Magnesium 1.90 mg/dL (1.7-2.3) 04/14/18 08:01 Total Bilirubin 0.60 mg/dL (0.1-1.2) 04/14/18 08:01 Direct Bilirubin 0.2 mg/dL (0-0.2) 04/13/18 13:59 Indirect Bilirubin 0.3 mg/dL 04/13/18 13:59 AST 14 units/L (5-40) 04/14/18 08:01 ALT 7 units/L (7-56) 04/14/18 08:01 Alkaline Phosphatase 106 units/L (35-129) 04/14/18 08:01 Ammonia 65.0 umol/L (25-60) H 04/13/18 13:59 Total Creatine Kinase 92 units/L (30-135) 04/13/18 13:59 CK-MB (CK-2) 3.7 ng/mL (0.0-4.0) 04/13/18 13:59 CK-MB (CK-2) Rel Index 4.0 (0-4) 04/13/18 13:59 Troponin T 0.010 ng/mL (0.00-0.029) 04/13/18 13:59 NT-Pro-B Natriuret Pep 58842 pg/mL (0-450) H 04/13/18 13:59 Total Protein 6.0 g/dL (6.3-8.2) L 04/14/18 08:01 Albumin 2.6 g/dL (3.9-5) L 04/14/18 08:01 Albumin/Globulin Ratio 0.8 % 04/14/18 08:01 Lipase 44 units/L (13-60) 04/13/18 13:59 Urine Color Diane (Yellow) 04/13/18 14:26 Urine Turbidity Cloudy (Clear) 04/13/18 14:26 Urine pH 5.0 (5.0-7.0) 04/13/18 14:26 Ur Specific Ethan 1.017 (1.003-1.030) 04/13/18 14:26 Urine Protein >500 mg/dL (Negative) 04/13/18 14:26 Urine Glucose (UA) >=500 mg/dL (Negative) 04/13/18 14:26 Urine Ketones Neg mg/dL (Negative) 04/13/18 14:26 Urine Blood Neg (Negative) 04/13/18 14:26 Urine Nitrite Neg (Negative) 04/13/18 14:26 Urine Bilirubin Neg (Negative) 04/13/18 14:26 Urine Urobilinogen < 2.0 mg/dL (<2.0) 04/13/18 14:26 Ur Leukocyte Esterase Neg (Negative) 04/13/18 14:26 Urine WBC (Auto) 22.0 /HPF (0.0-6.0) H 04/13/18 14:26 Urine RBC (Auto) 17.0 /HPF (0.0-6.0) 04/13/18 14:26 U Epithel Cells (Auto) 3.0 /HPF (0-13.0) 04/13/18 14:26 Urine Bacteria (Auto) 4+ /HPF (Negative) 04/13/18 14:26 Urine Mucus Few /HPF 04/13/18 14:26 Urine Yeast (Budding) 3+ /HPF 04/13/18 14:26 Urine Opiates Screen Presumptive negative 04/13/18 14:26 Urine Methadone Screen Presumptive negative 04/13/18 14:26 Ur Barbiturates Screen Presumptive negative 04/13/18 14:26 Ur Phencyclidine Scrn Presumptive negative 04/13/18 14:26 Ur Amphetamines Screen Presumptive negative 04/13/18 14:26 U Benzodiazepines Scrn Presumptive negative 04/13/18 14:26 Urine Cocaine Screen Presumptive negative 04/13/18 14:26 U Marijuana (THC) Screen Presumptive negative 04/13/18 14:26 Drugs of Abuse Note Disclamer 04/13/18 14:26
[2018-04-14] MEDS: K-DUR PO SCH ×2 (09:54→22:17)
[2018-04-14] MEDS ORDERED: TOPROL XL PO SCH (10:00)
--- NOTE | 2018-04-14 10:20 | XRay Report ---
FINAL REPORT EXAM: XR ABDOMEN 1V AP HISTORY: Confirm OGT COMPARISON: CT of the abdomen and pelvis performed on 07/18/2017 TECHNIQUE: Single frontal view of the abdomen for confirmation of enteric tube placement FINDINGS: Enteric tube with tip in the stomach. Nonobstructive bowel gas pattern. No acute bony or soft tissue abnormality. IMPRESSION: Enteric tube with tip in the stomach.
[2018-04-14] MEDS: KEPPRA PO SCH ×2 (11:00→22:17)
[2018-04-14] MEDS: LOPRESSOR PO SCH (11:00)
[2018-04-14] MEDS: SODIUM CHLORIDE FLUSH SYRINGE 10 ML IV SCH ×2 (11:01→22:21)
--- NOTE | 2018-04-14 11:21 | Consultation ---
History of Present Illness Consult date: 04/14/18 Consult reason: hypertension, other (Cardiomyopathy) History of present illness: 42 year old female who was brought in after an episode of seizures at home on arrival to the emergency room just to be in respiratory distress and intubated at the time of my evaluation patient is intubated and sedated appears to be in no apparent distress. Cardiology consult, and then secondary to high history of having a dilated cardiomyopathy. As well as coronary artery disease Past History Past Medical History: COPD, heart failure, hypertension, seizures, stroke, other (Pulmonary HTN) Past Surgical History: cataract removal Social history: single. denies: smoking, alcohol abuse, prescription drug abuse Family history: hypertension Medications and Allergies Allergies Allergy/AdvReac Type Severity Reaction Status Date / Time No Known Allergies Allergy Verified 06/20/13 01:16 Home Medications Medication Instructions Recorded Confirmed Last Taken Type Lispro Insulin [Humalog] 15 unit SQ BID 07/17/17 02/17/18 02/16/18 History Aspirin EC [Aspirin Enteric Coated 81 mg PO QDAY #30 tablet 07/22/17 02/17/18 02/17/18 Rx TAB] 81mg Apixaban [Eliquis] 2.5 mg PO BID 60 Days tablet 02/22/18 Unknown Rx AtorvaSTATin [Lipitor] 20 mg PO QHS #30 tablet 02/22/18 Unknown Rx Furosemide [Lasix TAB] 80 mg PO 0600,1800 #30 tablet 02/22/18 Unknown Rx Insulin Glargine,Hum.rec.anlog 20 unit SQ QHS #30 insuln.pen 02/22/18 Unknown Rx [Lantus Solostar] Lisinopril [Zestril TAB] 20 mg PO QDAY #30 tablet 02/22/18 Unknown Rx Lispro Insulin [Humalog] 0 unit SUB-Q ACHS units 02/22/18 Unknown Rx Metoprolol Xl [Metoprolol 25 mg PO QDAY #30 tablet 02/22/18 Unknown Rx SUCCINATE ER TAB] Potassium Chloride [K-Dur] 20 meq PO Q12HR #60 tablet 02/22/18 Unknown Rx hydrALAZINE [Apresoline TAB] 25 mg PO TID #90 tablet 02/22/18 Unknown Rx levETIRAcetam [Keppra TAB] 500 mg PO BID #90 tablet 02/22/18 Unknown Rx oxyCODONE /ACETAMINOPHEN [Percocet 1 tab PO Q6H PRN #30 tablet 02/22/18 Unknown Rx 5/325 mg] Active Meds: Active Medications Albuterol (Proventil) 2.5 mg IH Q3H PRN PRN Reason: Shortness Of Breath Aspirin (Aspirin) 300 mg FL QDAY ONE Stop: 04/14/18 15:55 Hydrophilic Ointment (Vaseline Lip Therapy) 1 applic TP Q2HR PRN PRN Reason: Dry Lips Lorazepam 100 mg/ Sodium Chloride/ Miscellaneous Information 100 mls @ 1 mls/hr IV TITR CECILE; Protocol Last Titration: 04/14/18 01:31 Dose: 1 mg/hr, 1 mls/hr Documented by: Propofol (Diprivan 10 Mg/Ml) 1,000 mg in 100 mls @ 3.062 mls/hr IV TITR CECILE; Protocol Last Titration: 04/14/18 09:30 Dose: 0 mcg/kg/min, 0 mls/hr Documented by: Insulin Human Lispro (Humalog) 15 unit SUB-Q BIDDIAB [facility] Last Admin: 04/14/18 08:00 Dose: Not Given Documented by: Levetiracetam (Keppra) 500 mg PO BID [facility] Last Admin: 04/14/18 11:00 Dose: 500 mg Documented by: Lorazepam (Ativan) 2 mg IV Q10MIN PRN PRN Reason: Agitation Last Admin: 04/13/18 15:40 Dose: 2 mg Documented by: Metoprolol Tartrate (Lopressor) 25 mg PO QDAY [facility] Last Admin: 04/14/18 11:00 Dose: 25 mg Documented by: Multi-Ingred Cream/Lotion/Oil/Oint (Artificial Tears Ophth Oint) 1 applic OU Q4HR PRN PRN Reason: Dry Eye(s) Potassium Chloride (K-Dur) 20 meq PO Q12HR [facility] Last Admin: 04/14/18 09:54 Dose: Not Given Documented by: Sodium Chloride (Sodium Chloride Flush Syringe 10 Ml) 10 ml IV BID [facility] Last Admin: 04/14/18 11:01 Dose: 10 ml Documented by: Sodium Chloride (Sodium Chloride Flush Syringe 10 Ml) 10 ml IV PRN PRN PRN Reason: LINE FLUSH Review of Systems ROS unobtainable: due to endotracheal tube Physical Examination Vital Signs Pulse Resp Pulse Ox 110 H 24 100 04/13/18 13:24 04/13/18 13:24 04/13/18 13:24 General appearance: other (Intubated and sedated) HEENT: Positive: PERRL, Mucus Membranes Moist Neck: Positive: neck supple, trachea midline. Negative: JVD/HJR Cardiac: Positive: Reg Rate and Rhythm, S1/S2, S3, PMI, Dilated, Laterally Displaced Lungs: Positive: clear to auscultation, No Wheeze, Rales, Rhonchi Neuro: Positive: Other (Sedated nonverbal or communicative) Abdomen: Positive: Unremarkable, Soft, Active Bowel Sounds Extremities: Absent: edema Results 04/14/18 08:01 04/14/18 08:01 Cardiac Enzymes 04/13/18 04/14/18 Range/Units 13:59 08:01 AST 13 14 (5-40) units/L CK-MB (CK-2) 3.7 (0.0-4.0) ng/mL Coagulation 04/13/18 Range/Units 13:41 PT 14.3 (12.2-14.9) Sec. INR 1.07 (0.87-1.13) APTT 28.9 (24.2-36.6) Sec. CBC 04/13/18 04/14/18 Range/Units 13:41 08:01 WBC 9.5 7.7 (4.5-11.0) K/mm3 RBC 4.06 4.01 (3.65-5.03) M/mm3 Hgb 13.0 12.7 (10.1-14.3) gm/dl Hct 41.8 39.2 (30.3-42.9) % Plt Count 238 182 (140-440) K/mm3 Lymph # 1.9 0.7 L (1.2-5.4) K/mm3 Powell # 0.4 0.4 (0.0-0.8) K/mm3 Eos # 0.2 0.1 (0.0-0.4) K/mm3 Baso # 0.1 0.0 (0.0-0.1) K/mm3 Comprehensive Metabolic Panel 04/13/18 04/14/18 Range/Units 13:59 08:01 Sodium 136 L 139 (137-145) mmol/L Potassium 4.8 4.1 (3.6-5.0) mmol/L Chloride 104.3 106.7 (98-107) mmol/L Carbon Dioxide 13 L 18 L (22-30) mmol/L BUN 30 H 30 H (7-17) mg/dL Creatinine 4.0 H 4.1 H (0.7-1.2) mg/dL Glucose 210 H 87 (65-100) mg/dL Calcium 8.1 L 8.1 L (8.4-10.2) mg/dL Direct Bilirubin 0.2 (0-0.2) mg/dL Indirect Bilirubin 0.3 mg/dL AST 13 14 (5-40) units/L ALT 7 7 (7-56) units/L Alkaline Phosphatase 130 H 106 (35-129) units/L Total Protein 6.7 6.0 L (6.3-8.2) g/dL Albumin 2.9 L 2.6 L (3.9-5) g/dL EKG interpretations - Telemetry EKG Rhythm: Sinus Rhythm Assessment and Plan 1. Status post seizure 2. Respiratory failure currently intubated on mechanical ventilator 3. Coronary artery disease status post PCI and stent implantation 4. Ischemic cardiomyopathy left ventricular ejection fraction 22%. 5. Type 2 diabetes mellitus 6. Chronic obstructive pulmonary disease with CVA of pulmonary hypertension 7. Essential hypertension Plan. Resume home medication wishes to give via feeding tube echocardiogram to assess global and regional function wean off ventilator as soon as possible
--- NOTE | 2018-04-14 11:23 | Consultation ---
History of Present Illness - Reason for Consult Consult date: 04/14/18 acute renal failure, chronic renal failure Requesting physician: CIRILO MARTINEZ - History of Present Illness 42 YO Female with HTN, Systolic CHF(EF 20%), CVA, DM, Seizure Disorder, COPD, Pulmonary HTN, CAD S/P Stent Placement presents to ED for evaluation. Pt is intubated and unable to provide history at time of exam. information obtained from patient's current chart. she was brought into the with complaints of chest. Pain. Upon arrival the patient was found to have a witnessed seizure. Pt was treated with Ativan and subsequently transported to [facility] for further care and evaluation. Pt seen and evaluated in ED and found to have respiratory distress, and is unable to protect her airway. Pt intubated and placed on vent support for Acute Respiratory Falure. Pt also found to have CHF decompensation. Past History Past Medical History: COPD, heart failure, hypertension, seizures, stroke, other (Pulmonary HTN) Past Surgical History: cataract removal Social history: single. denies: smoking, alcohol abuse, prescription drug abuse Family history: hypertension Medications and Allergies Allergies Allergy/AdvReac Type Severity Reaction Status Date / Time No Known Allergies Allergy Verified 06/20/13 01:16 Home Medications Medication Instructions Recorded Confirmed Last Taken Type Lispro Insulin [Humalog] 15 unit SQ BID 07/17/17 02/17/18 02/16/18 History Aspirin EC [Aspirin Enteric Coated 81 mg PO QDAY #30 tablet 07/22/17 02/17/18 02/17/18 Rx TAB] 81mg Apixaban [Eliquis] 2.5 mg PO BID 60 Days tablet 02/22/18 Unknown Rx AtorvaSTATin [Lipitor] 20 mg PO QHS #30 tablet 02/22/18 Unknown Rx Furosemide [Lasix TAB] 80 mg PO 0600,1800 #30 tablet 02/22/18 Unknown Rx Insulin Glargine,Hum.rec.anlog 20 unit SQ QHS #30 insuln.pen 02/22/18 Unknown Rx [Lantus Solostar] Lisinopril [Zestril TAB] 20 mg PO QDAY #30 tablet 02/22/18 Unknown Rx Lispro Insulin [Humalog] 0 unit SUB-Q ACHS units 02/22/18 Unknown Rx Metoprolol Xl [Metoprolol 25 mg PO QDAY #30 tablet 02/22/18 Unknown Rx SUCCINATE ER TAB] Potassium Chloride [K-Dur] 20 meq PO Q12HR #60 tablet 02/22/18 Unknown Rx hydrALAZINE [Apresoline TAB] 25 mg PO TID #90 tablet 02/22/18 Unknown Rx levETIRAcetam [Keppra TAB] 500 mg PO BID #90 tablet 02/22/18 Unknown Rx oxyCODONE /ACETAMINOPHEN [Percocet 1 tab PO Q6H PRN #30 tablet 02/22/18 Unknown Rx 5/325 mg] Active Meds: Active Medications Albuterol (Proventil) 2.5 mg IH Q3H PRN PRN Reason: Shortness Of Breath Aspirin (Aspirin) 300 mg [place] QDAY ONE Stop: 04/14/18 15:55 Hydrophilic Ointment (Vaseline Lip Therapy) 1 applic TP Q2HR PRN PRN Reason: Dry Lips Lorazepam 100 mg/ Sodium Chloride/ Miscellaneous Information 100 mls @ 1 mls/hr IV TITR [facility]; Protocol Last Titration: 04/14/18 01:31 Dose: 1 mg/hr, 1 mls/hr Documented by: Propofol (Diprivan 10 Mg/Ml) 1,000 mg in 100 mls @ 3.062 mls/hr IV TITR [facility]; Protocol Last Titration: 04/14/18 09:30 Dose: 0 mcg/kg/min, 0 mls/hr Documented by: Insulin Human Lispro (Humalog) 15 unit SUB-Q BIDDIAB [facility] Last Admin: 04/14/18 08:00 Dose: Not Given Documented by: Levetiracetam (Keppra) 500 mg PO BID [facility] Last Admin: 04/14/18 11:00 Dose: 500 mg Documented by: Lorazepam (Ativan) 2 mg IV Q10MIN PRN PRN Reason: Agitation Last Admin: 04/13/18 15:40 Dose: 2 mg Documented by: Metoprolol Tartrate (Lopressor) 25 mg PO QDAY [facility] Last Admin: 04/14/18 11:00 Dose: 25 mg Documented by: Multi-Ingred Cream/Lotion/Oil/Oint (Artificial Tears Ophth Oint) 1 applic OU Q4HR PRN PRN Reason: Dry Eye(s) Potassium Chloride (K-Dur) 20 meq PO Q12HR [facility] Last Admin: 04/14/18 09:54 Dose: Not Given Documented by: Sodium Chloride (Sodium Chloride Flush Syringe 10 Ml) 10 ml IV BID [facility] Last Admin: 04/14/18 11:01 Dose: 10 ml Documented by: Sodium Chloride (Sodium Chloride Flush Syringe 10 Ml) 10 ml IV PRN PRN PRN Reason: LINE FLUSH Review of Systems ROS unobtainable: due to endotracheal tube Exam - Vital Signs Vital signs: Vital Signs Pulse Resp Pulse Ox 110 H 24 100 04/13/18 13:24 04/13/18 13:24 04/13/18 13:24 - General Appearance General appearance: well-developed, well-nourished, appears stated age, intubated EENT: PERRL, mucous membranes moist Neck: Present: neck supple, trachea midline. Absent: JVD/HJR, Masses Respiratory: Rales Heart: regular, normal heart rate, S1S2, no murmurs Gastrointestinal: Present: normal, normoactive bowel sounds Integumentary: other (1+ edema) Results - Lab Results 04/14/18 08:01 04/14/18 11:23 Most recent lab results Calcium 8.1 mg/dL (8.4-10.2) L 04/14/18 08:01 Phosphorus 4.90 mg/dL (2.5-4.5) H 04/14/18 08:01 Magnesium 1.90 mg/dL (1.7-2.3) 04/14/18 08:01 Assessment and Plan impression * Chronic kidney disease * Respiratory failure secondary to pulmonary * Hypertension * Seizure disorder * Pulmonary hypertension * COPD * History of CVA Recommendations * Patient baseline serum creatinine appears to be in the 3-4 range * She is currently responding to loop diuretics. no urgent indication for dialysis at this time * Continue loop diuretics * Avoid nephrotoxins * Monitor fluid status and electrolytes closely * Check a UA. If active sediment, she would need additional workup * Thank you very much for the consultation. Shall follow along with you
[2018-04-14 12:50] LABS: Hepatitis B Surface Antigen Non-Reactive (Negative); Hepatitis C Virus Antibody Non-Reactive (NonReactive)
--- NOTE | 2018-04-14 13:07 | Consultation ---
History of Present Illness Consult date: 04/14/18 Requesting physician: NEMO HEREDIA Reason for consult: other (acute respiratory failure, mechanicl ventilation) History of present illness: 42 y/o female, with multiple admissions here in the past admitted to the ICU for respiratory failure post seizure and was post ictal. Patient is sedated on ATivan. Not able to give history. Brother, [place], at bedside and states that patient has had seizures before related to elevated blood sugars. Per the brother she has been dealing with depression as well. She also does not take any antiseizure medication to his knowledge, but Jonh is on her home profile. Past History Past Medical History: COPD, heart failure, hypertension, seizures, stroke, other (Pulmonary HTN) Past Surgical History: cataract removal Social history: single. denies: smoking, alcohol abuse, prescription drug abuse Family history: hypertension Medications and Allergies Allergies Allergy/AdvReac Type Severity Reaction Status Date / Time No Known Allergies Allergy Verified 06/20/13 01:16 Home Medications Medication Instructions Recorded Confirmed Last Taken Type Lispro Insulin [Humalog] 15 unit SQ BID 07/17/17 02/17/18 02/16/18 History Aspirin EC [Aspirin Enteric Coated 81 mg PO QDAY #30 tablet 07/22/17 02/17/18 02/17/18 Rx TAB] 81mg Apixaban [Eliquis] 2.5 mg PO BID 60 Days tablet 02/22/18 Unknown Rx AtorvaSTATin [Lipitor] 20 mg PO QHS #30 tablet 02/22/18 Unknown Rx Furosemide [Lasix TAB] 80 mg PO 0600,1800 #30 tablet 02/22/18 Unknown Rx Insulin Glargine,Hum.rec.anlog 20 unit SQ QHS #30 insuln.pen 02/22/18 Unknown Rx [Lantus Solostar] Lisinopril [Zestril TAB] 20 mg PO QDAY #30 tablet 02/22/18 Unknown Rx Lispro Insulin [Humalog] 0 unit SUB-Q ACHS units 02/22/18 Unknown Rx Metoprolol Xl [Metoprolol 25 mg PO QDAY #30 tablet 02/22/18 Unknown Rx SUCCINATE ER TAB] Potassium Chloride [K-Dur] 20 meq PO Q12HR #60 tablet 02/22/18 Unknown Rx hydrALAZINE [Apresoline TAB] 25 mg PO TID #90 tablet 02/22/18 Unknown Rx levETIRAcetam [Keppra TAB] 500 mg PO BID #90 tablet 02/22/18 Unknown Rx oxyCODONE /ACETAMINOPHEN [Percocet 1 tab PO Q6H PRN #30 tablet 02/22/18 Unknown Rx 5/325 mg] Active Meds: Active Medications Albuterol (Proventil) 2.5 mg IH Q3H PRN PRN Reason: Shortness Of Breath Aspirin (Aspirin) 300 mg SC QDAY ONE Stop: 04/14/18 15:55 Furosemide (Lasix) 40 mg IV ONCE ONE Stop: 04/14/18 13:02 Hydrophilic Ointment (Vaseline Lip Therapy) 1 applic TP Q2HR PRN PRN Reason: Dry Lips Propofol (Diprivan 10 Mg/Ml) 1,000 mg in 100 mls @ 3.062 mls/hr IV TITR [facility]; Protocol Last Titration: 04/14/18 09:30 Dose: 0 mcg/kg/min, 0 mls/hr Documented by: Insulin Human Lispro (Humalog) 15 unit SUB-Q BIDDIAB [facility] Last Admin: 04/14/18 08:00 Dose: Not Given Documented by: Levetiracetam (Keppra) 500 mg PO BID [facility] Last Admin: 04/14/18 11:00 Dose: 500 mg Documented by: Lorazepam (Ativan) 2 mg IV Q10MIN PRN PRN Reason: Agitation Last Admin: 04/13/18 15:40 Dose: 2 mg Documented by: Metoprolol Tartrate (Lopressor) 25 mg PO QDAY [facility] Last Admin: 04/14/18 11:00 Dose: 25 mg Documented by: Multi-Ingred Cream/Lotion/Oil/Oint (Artificial Tears Ophth Oint) 1 applic OU Q4HR PRN PRN Reason: Dry Eye(s) Potassium Chloride (K-Dur) 20 meq PO Q12HR [facility] Last Admin: 04/14/18 09:54 Dose: Not Given Documented by: Sodium Chloride (Sodium Chloride Flush Syringe 10 Ml) 10 ml IV BID [facility] Last Admin: 04/14/18 11:01 Dose: 10 ml Documented by: Sodium Chloride (Sodium Chloride Flush Syringe 10 Ml) 10 ml IV PRN PRN PRN Reason: LINE FLUSH Review of Systems ROS unobtainable: due to endotracheal tube, due to mental status Physical Examination Vital signs: Vital Signs Pulse Resp Pulse Ox 110 H 24 100 04/13/18 13:24 04/13/18 13:24 04/13/18 13:24 General appearance: no acute distress, comatose (but will respond to sternal rub and painful stimuli) ENT: other (orally intubated and sedated) Effort: normal Ascultation: Bilateral: clear Percussion: Bilateral: not dull Cardiovascular: regular rate and rhythm Gastrointestinal: normoactive bowel sounds, soft, non-tender Extremities: no edema, pink and warm, pulses normal unable to assess Results - Laboratory Findings CBC and BMP: 04/14/18 08:01 04/14/18 08:01 ABG POC ABG pH 7.379 (7.35-7.45) 04/14/18 05:06 POC ABG pCO2 31.8 (35-45) L 04/14/18 05:06 POC ABG pO2 127 (80-105) H 04/14/18 05:06 POC ABG HCO3 18.8 04/14/18 05:06 POC ABG Total CO2 20 04/14/18 05:06 POC ABG O2 Sat 99 04/14/18 05:06 PT/INR, D-dimer PT 14.3 Sec. (12.2-14.9) 04/13/18 13:41 INR 1.07 (0.87-1.13) 04/13/18 13:41 Abnormal lab findings: Abnormal Labs 04/13/18 04/13/18 04/13/18 13:41 13:59 13:59 MCV 103 H RDW 16.8 H Lymph % (Auto) Lymph # Seg Neutrophils % 73.1 H POC ABG pH POC ABG pCO2 POC ABG pO2 Sodium 136 L Carbon Dioxide 13 L BUN 30 H Creatinine 4.0 H Glucose 210 H POC Glucose Lactic Acid 3.10 H* Calcium 8.1 L Phosphorus Alkaline Phosphatase 130 H Ammonia NT-Pro-B Natriuret Pep 47371 H Total Protein Albumin 2.9 L Urine WBC (Auto) 04/13/18 04/13/18 04/13/18 13:59 14:07 14:26 MCV RDW Lymph % (Auto) Lymph # Seg Neutrophils % POC ABG pH 7.262 L POC ABG pCO2 32.8 L POC ABG pO2 Sodium Carbon Dioxide BUN Creatinine Glucose POC Glucose Lactic Acid Calcium Phosphorus Alkaline Phosphatase Ammonia 65.0 H NT-Pro-B Natriuret Pep Total Protein Albumin Urine WBC (Auto) 22.0 H 04/13/18 04/14/18 04/14/18 14:30 05:06 08:01 MCV 98 H RDW 15.9 H Lymph % (Auto) 9.3 L Lymph # 0.7 L Seg Neutrophils % 83.8 H POC ABG pH POC ABG pCO2 31.8 L POC ABG pO2 127 H Sodium Carbon Dioxide BUN Creatinine Glucose POC Glucose 181 H Lactic Acid Calcium Phosphorus Alkaline Phosphatase Ammonia NT-Pro-B Natriuret Pep Total Protein Albumin Urine WBC (Auto) 04/14/18 08:01 MCV RDW Lymph % (Auto) Lymph # Seg Neutrophils % POC ABG pH POC ABG pCO2 POC ABG pO2 Sodium Carbon Dioxide 18 L BUN 30 H Creatinine 4.1 H Glucose POC Glucose Lactic Acid Calcium 8.1 L Phosphorus 4.90 H Alkaline Phosphatase Ammonia NT-Pro-B Natriuret Pep Total Protein 6.0 L Albumin 2.6 L Urine WBC (Auto) - Diagnostic Findings Chest x-ray: image reviewed Assessment and Plan 42 y/o female with acute respiratory failure, secondary to post-ictal state from seizure. 1. Stop ativan 2. Will attempt extubation once medication wears off 3. Continue home medication regimen 4. May need to consider neuro consult and EEG CCT 31 minutes.
[2018-04-14] MEDS ORDERED: LASIX IV ONE (14:00)
[2018-04-14 14:37] LABS: Creatinine,Urine 85.5 mg/dL (0.1-20.0); Fractional Sodium Excretion 2.3
[2018-04-14 14:49] LABS: Protein/Creatinine Ratio,Urine 1.78
[2018-04-14] MEDS ORDERED: ASPIRIN PR ONE (15:54)
[2018-04-14] MEDS ORDERED: ASPIRIN PO ONE (15:56)
[2018-04-14] MEDS: APRESOLINE IV PRN (16:33)
[2018-04-14] MEDS: ELIQUIS FEEDTUBE SCH ×2 (18:00→22:25)
[2018-04-14] MEDS: APRESOLINE PO SCH ×2 (19:04→22:22)
[2018-04-14] MEDS: D50W (25GM) Syringe IV PRN ×2 (19:31→23:59)
--- NOTE | 2018-04-14 20:18 | Ultrasound Report ---
FINAL REPORT EXAM: US RENAL BILAT HISTORY: renal failure TECHNIQUE: Ultrasound of the kidneys PRIORS: CT a/P 07/18/2017 FINDINGS: Examination of the kidneys demonstrates both to be normal in size and have normal cortical echogenici ty and thickness. The right and left kidneys measure 10.5 cm and 10.3 cm in craniocaudal length, res pectively. No evidence for hydronephrosis or solid mass is seen in either kidney. Bilateral echogenic non shadowing nonobstructing calculi are present. The urinary bladder is collapsed containing a Winters catheter balloon. IMPRESSION: Bilateral nonobstructing calculi. No evidence for hydronephrosis bilaterally.
[2018-04-14] MEDS: KEPPRA 750 MG in NACL 0.9% 100 ML IV SCH (22:20)
[2018-04-15] MEDS: ATIVAN IV PRN ×2 (01:20→23:19)
--- NOTE | 2018-04-15 03:00 | XRay Report ---
FINAL REPORT PROCEDURE: XR CHEST 1V AP TECHNIQUE: Chest radiograph anteroposterior view. CPT 70566 HISTORY: follow up respiratory failure COMPARISON: 04/14/2018 FINDINGS: Heart: Normal. Mediastinum/Vessels: Normal. Lungs/Pleural space: Mild vascular congestion. Mild bilateral infiltrates are again noted and unchang ed. No effusion or pneumothorax. Bony thorax: No acute osseous abnormality. Life support devices: The endotracheal tube ends 2 centimeters above the riaz. A nasogastric tube e nds below the hemidiaphragms.. IMPRESSION: Vascular congestion with mild bilateral central infiltrates. This has not changed. The endotracheal t ube and nasogastric tube are properly positioned..
[2018-04-15 04:29] LABS: Hemoglobin 11.9 gm/dl (10.1-14.3); Mean Corpuscular HGB Conc 33 % (30-34); Mean Corpuscular Volume 97 fl (79-97); Platelet Count 167 K/mm3 (140-440); Red Blood Count 3.73 M/mm3 (3.65-5.03); Red Cell Distribution Width 15.7 % (13.2-15.2)
[2018-04-15 04:52] LABS: Calcium 8.1 mg/dL (8.4-10.2)
[2018-04-15] MEDS: APRESOLINE PO SCH ×3 (06:03→21:08)
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
--- NOTE | 2018-04-15 08:42 | Progress Note ---
Assessment and Plan impression * Chronic kidney disease * Respiratory failure secondary to pulmonary * Hypertension * Seizure disorder * Pulmonary hypertension * COPD * History of CVA Recommendations * Patient baseline serum creatinine appears to be in the 3-4 range * She is currently responding to loop diuretics. no urgent indication for dialysis at this time * Continue loop diuretics as needed * Avoid nephrotoxins * Monitor fluid status and electrolytes closely * Renal ultrasound showing bilateral nonobstructing stones * Urine shows 4+ dipstick protein as well as pyuria and microhematuria. Follow- up results of vasculitis workup Subjective Date of service: 04/15/18 Interval history: Patient remains on the ventilator. Currently on 30% FiO2. Objective - Vital Signs Vital signs: Vital Signs - 12hr 04/14/18 04/14/18 04/14/18 21:00 21:38 22:00 Temperature Pulse Rate 85 86 96 H Respiratory 15 21 Rate Blood Pressure 151/84 150/83 128/93 O2 Sat by Pulse 99 100 100 Oximetry 04/14/18 04/14/18 04/14/18 22:22 23:00 23:04 Temperature 98.8 F Pulse Rate 89 88 Respiratory 29 H Rate Blood Pressure 128/93 150/82 O2 Sat by Pulse 97 Oximetry 04/15/18 04/15/18 04/15/18 00:00 01:00 02:00 Temperature Pulse Rate 81 96 H 94 H Respiratory 19 31 H 21 Rate Blood Pressure 160/84 144/71 139/82 O2 Sat by Pulse 98 98 98 Oximetry 04/15/18 04/15/18 04/15/18 03:00 03:19 04:00 Temperature 98.5 F Pulse Rate 89 87 Respiratory 18 10 L Rate Blood Pressure 148/79 143/71 O2 Sat by Pulse 97 98 Oximetry 04/15/18 04/15/18 04/15/18 05:00 06:00 06:03 Temperature Pulse Rate 82 82 81 Respiratory 18 20 Rate Blood Pressure 143/71 149/74 149/74 O2 Sat by Pulse 99 99 Oximetry 04/15/18 04/15/18 07:00 08:00 Temperature 98.7 F Pulse Rate 82 84 Respiratory 23 20 Rate Blood Pressure 132/58 142/64 O2 Sat by Pulse 100 100 Oximetry - General Appearance General appearance: well-developed, well-nourished, appears stated age, intubat ed EENT: PERRL, mucous membranes moist Neck: no JVD, no thyromegaly Respiratory: Present: Clear to Ascultation Cardiology: regular, normal heart rate, S1S2, no murmurs Gastrointestinal: normal, normoactive bowel sounds Integumentary: other (no edema) - Lab 04/15/18 03:17 04/15/18 03:17 Most recent lab results Calcium 8.1 mg/dL (8.4-10.2) L 04/15/18 03:17 Phosphorus 4.90 mg/dL (2.5-4.5) H 04/14/18 08:01 Magnesium 1.90 mg/dL (1.7-2.3) 04/14/18 08:01 Urine Creatinine 85.5 mg/dL (0.1-20.0) H 04/14/18 11:23 Urine Sodium 82 mmol/L 04/14/18 11:23 Urine Total Protein 152 mg/dL (5-11.8) H 04/14/18 11:23 Medications & Allergies - Medications Allergies/Adverse Reactions: Allergies No Known Allergies Allergy (Verified 06/20/13 01:16) Home Medications: Home Medications Medication Instructions Recorded Confirmed Last Taken Type Lispro Insulin [Humalog] 15 unit SQ BID 07/17/17 02/17/18 02/16/18 History Aspirin EC [Aspirin Enteric Coated 81 mg PO QDAY #30 tablet 07/22/17 02/17/18 02/17/18 Rx TAB] 81mg Apixaban [Eliquis] 2.5 mg PO BID 60 Days tablet 02/22/18 Unknown Rx AtorvaSTATin [Lipitor] 20 mg PO QHS #30 tablet 02/22/18 Unknown Rx Furosemide [Lasix TAB] 80 mg PO 0600,1800 #30 tablet 02/22/18 Unknown Rx Insulin Glargine,Hum.rec.anlog 20 unit SQ QHS #30 insuln.pen 02/22/18 Unknown Rx [Lantus Solostar] Lisinopril [Zestril TAB] 20 mg PO QDAY #30 tablet 02/22/18 Unknown Rx Lispro Insulin [Humalog] 0 unit SUB-Q ACHS units 02/22/18 Unknown Rx Metoprolol Xl [Metoprolol 25 mg PO QDAY #30 tablet 02/22/18 Unknown Rx SUCCINATE ER TAB] Potassium Chloride [K-Dur] 20 meq PO Q12HR #60 tablet 02/22/18 Unknown Rx hydrALAZINE [Apresoline TAB] 25 mg PO TID #90 tablet 02/22/18 Unknown Rx levETIRAcetam [Keppra TAB] 500 mg PO BID #90 tablet 02/22/18 Unknown Rx oxyCODONE /ACETAMINOPHEN [Percocet 1 tab PO Q6H PRN #30 tablet 02/22/18 Unknown Rx 5/325 mg] Active Medications: Generic Name Dose Route Start Last Admin Trade Name Freq PRN Reason Stop Dose Admin Albuterol 2.5 mg 04/13/18 14:57 Proventil IH Q3H PRN Shortness Of Breath Apixaban 2.5 mg 04/14/18 18:00 04/14/18 22:25 Eliquis FEEDTUBE 2.5 mg Q12HR CECILE Administration Protocol Dextrose 50 ml 04/14/18 19:05 04/14/18 23:59 D50w (25gm) Syringe IV 50 ml PRN PRN Administration Hypoglycemia Famotidine 20 mg 04/15/18 10:00 Pepcid PO DAILY CECILE Hydralazine HCl 10 mg 04/14/18 16:15 04/14/18 16:33 Apresoline IV 10 mg Q4HR PRN Administration SBP >150 or DBP >90 Hydralazine HCl 25 mg 04/14/18 17:00 04/15/18 06:03 Apresoline PO 25 mg Q8HR CECILE Administration Hydrophilic Ointment 1 applic 04/13/18 13:43 Vaseline Lip Therapy TP Q2HR PRN Dry Lips Propofol 1,000 mg in 100 mls @ 3.062 mls/hr 04/13/18 16:00 04/14/18 16:50 Diprivan 10 Mg/Ml IV 0 mcg/kg/min TITR CECILE 0 mls/hr Titration Protocol 5 MCG/KG/MIN Levetiracetam 750 mg/ Sodium 107.5 mls @ 400 mls/hr 04/14/18 22:00 04/14/18 22:20 Chloride IV 04/15/18 12:00 400 mls/hr Q12HR CECILE Administration Levetiracetam 750 mg 04/15/18 22:00 Keppra PO BID CECILE Lorazepam 2 mg 04/13/18 13:43 04/15/18 01:20 Ativan IV 2 mg Q10MIN PRN Administration Agitation Metoprolol Tartrate 25 mg 04/14/18 11:00 04/14/18 11:00 Lopressor PO 25 mg QDAY CECILE Administration Multi-Ingred Cream/Lotion/Oil/Oint 1 applic 04/13/18 13:43 Artificial Tears Ophth Oint OU Q4HR PRN Dry Eye(s) Potassium Chloride 20 meq 04/15/18 10:00 Potassium Chloride PO Q12HR CECILE Sodium Chloride 10 ml 04/13/18 22:00 04/14/18 22:21 Sodium Chloride Flush Syringe 10 Ml IV 10 ml BID CECILE Administration Sodium Chloride 10 ml 04/13/18 14:57 Sodium Chloride Flush Syringe 10 Ml IV PRN PRN LINE FLUSH
[2018-04-15] MEDS: D50W (25GM) Syringe IV PRN ×2 (08:53→12:24)
[2018-04-15] MEDS: LOPRESSOR PO SCH (09:02)
[2018-04-15] MEDS: POTASSIUM CHLORIDE PO SCH ×2 (09:02→22:36)
[2018-04-15] MEDS: ELIQUIS FEEDTUBE SCH ×2 (09:02→21:08)
[2018-04-15] MEDS: PEPCID PO SCH (09:02)
[2018-04-15] MEDS: SODIUM CHLORIDE FLUSH SYRINGE 10 ML IV SCH ×2 (09:03→22:36)
[2018-04-15] MEDS: KEPPRA 750 MG in NACL 0.9% 100 ML IV SCH (11:00)
[2018-04-15] MEDS: KEPPRA PO SCH ×2 (11:15→21:07)
--- NOTE | 2018-04-15 11:15 | Progress Note ---
Assessment and Plan Acute respiratory failure, secondary to seizure episode. Chronic kidney disease. Medication noncompliance COPD per notes Recommendations Bedside rapid shallow index showed index of 88 from 0 cc support to 8/5 cm pressure-support CPAP level. Discussed with MAKE UP OPERATOR, proceed with weaning Set tidal Volume set initially at 6-8 cm PBW for OVIDIO protection Keep PIP < 30 Sedation medication Maintain extubation precautions If awake and tolerated procedure with extubation Continue antiseizure medications DVT prophylaxis PPI prophylaxis No family available for case discussion Critical care time was 31 minutes of [id number] evaluation and coordination of care Subjective Date of service: 04/15/18 Principal diagnosis: Acute respiratory failure, secondary to seizure episode. Chronic kidney di Interval history: Sedated but responsive when stimulated Objective Vital Signs - 12hr 04/15/18 04/15/18 04/15/18 00:00 01:00 02:00 Temperature Pulse Rate 81 96 H 94 H Respiratory 19 31 H 21 Rate Blood Pressure 160/84 144/71 139/82 O2 Sat by Pulse 98 98 98 Oximetry 04/15/18 04/15/18 04/15/18 03:00 03:19 04:00 Temperature 98.5 F Pulse Rate 89 87 Respiratory 18 10 L Rate Blood Pressure 148/79 143/71 O2 Sat by Pulse 97 98 Oximetry 04/15/18 04/15/18 04/15/18 05:00 06:00 06:03 Temperature Pulse Rate 82 82 81 Respiratory 18 20 Rate Blood Pressure 143/71 149/74 149/74 O2 Sat by Pulse 99 99 Oximetry 04/15/18 04/15/18 04/15/18 07:00 08:00 08:51 Temperature 98.7 F Pulse Rate 82 84 83 Respiratory 23 20 Rate Blood Pressure 132/58 142/64 134/56 O2 Sat by Pulse 100 100 99 Oximetry 04/15/18 04/15/18 04/15/18 09:00 09:02 10:00 Temperature Pulse Rate 84 82 77 Respiratory 23 24 Rate Blood Pressure 142/64 141/66 147/71 O2 Sat by Pulse 100 100 Oximetry 04/15/18 11:00 Temperature Pulse Rate 81 Respiratory 23 Rate Blood Pressure 142/72 O2 Sat by Pulse 98 Oximetry Constitutional: no acute distress, asleep ENT: other (orally intubated and sedated) Neck: no JVD Effort: normal Ascultation: Bilateral: clear Percussion: Bilateral: not dull Cardiovascular: regular rate and rhythm Gastrointestinal: normoactive bowel sounds, soft, non-tender Extremities: no edema, pink and warm, pulses normal Neurologic: unable to assess, other (RASS -1) CBC and BMP: 04/15/18 03:17 04/15/18 03:17 ABG, PT/INR, D-dimer: ABG POC ABG pH 7.379 (7.35-7.45) 04/14/18 05:06 POC ABG pCO2 31.8 (35-45) L 04/14/18 05:06 POC ABG pO2 127 (80-105) H 04/14/18 05:06 POC ABG HCO3 18.8 04/14/18 05:06 POC ABG Total CO2 20 04/14/18 05:06 POC ABG O2 Sat 99 04/14/18 05:06 PT/INR, D-dimer PT 14.3 Sec. (12.2-14.9) 04/13/18 13:41 INR 1.07 (0.87-1.13) 04/13/18 13:41 Abnormal lab findings: Abnormal Labs 04/13/18 04/13/18 04/13/18 13:41 13:59 13:59 WBC MCV 103 H RDW 16.8 H Lymph % (Auto) Lymph # Seg Neutrophils % 73.1 H POC ABG pH POC ABG pCO2 POC ABG pO2 Sodium 136 L Carbon Dioxide 13 L BUN 30 H Creatinine 4.0 H Glucose 210 H POC Glucose Lactic Acid 3.10 H* Calcium 8.1 L Phosphorus Alkaline Phosphatase 130 H Ammonia NT-Pro-B Natriuret Pep 23102 H Total Protein Albumin 2.9 L Urine WBC (Auto) Urine Creatinine Urine Total Protein 04/13/18 04/13/18 04/13/18 13:59 14:07 14:26 WBC MCV RDW Lymph % (Auto) Lymph # Seg Neutrophils % POC ABG pH 7.262 L POC ABG pCO2 32.8 L POC ABG pO2 Sodium Carbon Dioxide BUN Creatinine Glucose POC Glucose Lactic Acid Calcium Phosphorus Alkaline Phosphatase Ammonia 65.0 H NT-Pro-B Natriuret Pep Total Protein Albumin Urine WBC (Auto) 22.0 H Urine Creatinine Urine Total Protein 04/13/18 04/14/18 04/14/18 14:30 05:06 08:01 WBC MCV 98 H RDW 15.9 H Lymph % (Auto) 9.3 L Lymph # 0.7 L Seg Neutrophils % 83.8 H POC ABG pH POC ABG pCO2 31.8 L POC ABG pO2 127 H Sodium Carbon Dioxide BUN Creatinine Glucose POC Glucose 181 H Lactic Acid Calcium Phosphorus Alkaline Phosphatase Ammonia NT-Pro-B Natriuret Pep Total Protein Albumin Urine WBC (Auto) Urine Creatinine Urine Total Protein 04/14/18 04/14/18 04/14/18 08:01 11:23 11:23 WBC MCV RDW Lymph % (Auto) Lymph # Seg Neutrophils % POC ABG pH POC ABG pCO2 POC ABG pO2 Sodium Carbon Dioxide 18 L BUN 30 H Creatinine 4.1 H 3.9 H Glucose POC Glucose Lactic Acid Calcium 8.1 L Phosphorus 4.90 H Alkaline Phosphatase Ammonia NT-Pro-B Natriuret Pep Total Protein 6.0 L Albumin 2.6 L Urine WBC (Auto) Urine Creatinine 85.5 H Urine Total Protein 152 H 04/14/18 04/14/18 04/15/18 19:04 23:37 03:17 WBC 11.3 H MCV RDW 15.7 H Lymph % (Auto) Lymph # Seg Neutrophils % POC ABG pH POC ABG pCO2 POC ABG pO2 Sodium Carbon Dioxide BUN Creatinine Glucose POC Glucose 69 L 65 L Lactic Acid Calcium Phosphorus Alkaline Phosphatase Ammonia NT-Pro-B Natriuret Pep Total Protein Albumin Urine WBC (Auto) Urine Creatinine Urine Total Protein 04/15/18 04/15/18 04/15/18 03:17 05:27 08:50 WBC MCV RDW Lymph % (Auto) Lymph # Seg Neutrophils % POC ABG pH POC ABG pCO2 POC ABG pO2 Sodium Carbon Dioxide 18 L BUN 33 H Creatinine 4.1 H Glucose 63 L POC Glucose 66 L 64 L Lactic Acid Calcium 8.1 L Phosphorus Alkaline Phosphatase Ammonia NT-Pro-B Natriuret Pep Total Protein Albumin Urine WBC (Auto) Urine Creatinine Urine Total Protein 04/15/18 09:32 WBC MCV RDW Lymph % (Auto) Lymph # Seg Neutrophils % POC ABG pH POC ABG pCO2 POC ABG pO2 Sodium Carbon Dioxide BUN Creatinine Glucose POC Glucose 114 H Lactic Acid Calcium Phosphorus Alkaline Phosphatase Ammonia NT-Pro-B Natriuret Pep Total Protein Albumin Urine WBC (Auto) Urine Creatinine Urine Total Protein Chest x-ray: report reviewed, image reviewed
--- NOTE | 2018-04-15 12:12 | Progress Note ---
Addendum entered and electronically signed by SHANELLE OVERTON MD 04/15/18 18:06: Patient is currently on the vent, sedated, for respiratory failure. Multiple ca ia comorbidities including coronary artery disease, with a 4 mm drug-eluting stent implanted in the right coronary artery in March 2016. More recently, in February 2018 and echocardiogram showed severe cardiomyopathy, ejection fraction 20-25%. She has paroxysmal atrial fibrillation on oral anticoagulation with Eliquis. She has chronic kidney disease with elevated creatinine of 4.0. On this presentation, chest x-ray shows bilateral lung infiltrates, worse on the right. EKG is sinus rhythm, right axis deviation, right bundle branch block, no acute ST or T-wave changes, no change from previous serial ECG tracings. We will continue supportive cardiac management, prognosis is guarded. Original Note: Assessment and Plan Status post seizure Respiratory failure currently intubated on mechanical ventilator Hx of coronary artery disease Ischemic cardiomyopathy Paroxysmal atrial fibrillation on oral anticoagulation with low dose Eliquis. RBBB, chronic Hypertension Chronic kidney disease Non-specific troponin in the setting of renal failure Echocardiogram 02/2018 reports a left ventricular ejection fraction 20-25%. There was moderate tricuspid regurgitation and pulmonary artery systolic pressure is mildly elevated at 40. Stress test 05/2017: Large fixed lateral wall defect Recommendations: Continue medical management for ischemic cardiomyopathy and coronary artery disease as tolerated. Otherwise, conservative cardiac management. Subjective Date of service: 04/15/18 Principal diagnosis: Acute respiratory failure, secondary to seizure episode. Chronic kidney di Interval history: Patient is sedated, intubated on mechanical ventilation. Objective Vital Signs Temp Pulse Resp BP Pulse Ox 04/15/18 11:00 81 23 142/72 98 04/15/18 10:00 77 24 147/71 100 04/15/18 09:02 82 141/66 04/15/18 09:00 84 23 142/64 100 04/15/18 08:51 83 134/56 99 04/15/18 08:00 98.7 F 84 20 142/64 100 04/15/18 07:00 82 23 132/58 100 04/15/18 06:03 81 149/74 04/15/18 06:00 82 20 149/74 99 04/15/18 05:00 82 18 143/71 99 04/15/18 04:00 87 10 L 143/71 98 04/15/18 03:19 98.5 F 04/15/18 03:00 89 18 148/79 97 04/15/18 02:00 94 H 21 139/82 98 04/15/18 01:00 96 H 31 H 144/71 98 04/15/18 00:00 81 19 160/84 98 04/14/18 23:04 98.8 F 04/14/18 23:00 88 29 H 150/82 97 04/14/18 22:22 89 128/93 04/14/18 22:00 96 H 128/93 100 04/14/18 21:38 86 21 150/83 100 04/14/18 21:00 85 15 151/84 99 04/14/18 20:00 89 22 150/85 97 04/14/18 19:46 98.9 F 04/14/18 19:00 71 18 150/78 99 04/14/18 18:00 70 18 132/73 99 04/14/18 17:00 74 19 139/77 100 04/14/18 16:33 73 162/87 04/14/18 16:00 99.5 F 73 19 179/95 100 04/14/18 15:45 71 157/90 100 04/14/18 15:00 71 18 152/84 100 04/14/18 14:00 69 11 L 156/84 100 04/14/18 13:00 67 18 154/90 100 04/14/18 12:40 68 151/88 100 - Physical Examination General: Other (intubated on the vent) Cardiac: Positive: Reg Rate and Rhythm - Labs and Meds CBC 04/15/18 Range/Units 03:17 WBC 11.3 H (4.5-11.0) K/mm3 RBC 3.73 (3.65-5.03) M/mm3 Hgb 11.9 (10.1-14.3) gm/dl Hct 36.0 (30.3-42.9) % Plt Count 167 (140-440) K/mm3 Comprehensive Metabolic Panel 04/14/18 04/15/18 Range/Units 11:23 03:17 Sodium 142 141 (137-145) mmol/L Potassium 4.0 (3.6-5.0) mmol/L Chloride 105.6 (98-107) mmol/L Carbon Dioxide 18 L (22-30) mmol/L BUN 33 H (7-17) mg/dL Creatinine 3.9 H 4.1 H (0.7-1.2) mg/dL Glucose 63 L (65-100) mg/dL Calcium 8.1 L (8.4-10.2) mg/dL
--- NOTE | 2018-04-16 02:51 | XRay Report ---
FINAL REPORT PROCEDURE: XR CHEST 1V AP TECHNIQUE: Chest radiograph anteroposterior view. CPT 54551 HISTORY: follow up respiratory failure COMPARISON: 04/15/2018 FINDINGS: Heart: The heart is enlarged Mediastinum/Vessels: Normal. Lungs/Pleural space: There is pulmonary vascular congestion. There are no infiltrates, effusions or p neumothoraces.. Bony thorax: No acute osseous abnormality. Life support devices: The endotracheal tube is in the mid trachea. The NG tube is in the stomach.. IMPRESSION: The heart is enlarged There is pulmonary vascular congestion. There are no infiltrates, effusions or pneumothoraces.. The endotracheal tube is in the mid trachea. The NG tube is in the stomach.. .
[2018-04-16 04:23] LABS: Hematocrit 36.4 % (30.3-42.9); Hemoglobin 11.8 gm/dl (10.1-14.3); Mean Corpuscular HGB Conc 33 % (30-34); Mean Corpuscular Volume 98 fl (79-97); Platelet Count 156 K/mm3 (140-440); Red Blood Count 3.72 M/mm3 (3.65-5.03); Red Cell Distribution Width 15.5 % (13.2-15.2)
[2018-04-16 05:13] LABS: Calcium 8.1 mg/dL (8.4-10.2)
[2018-04-16] MEDS: APRESOLINE PO SCH ×3 (05:35→21:58)
--- NOTE | 2018-04-16 08:37 | Progress Note ---
Assessment and Plan impression * Chronic kidney disease * Respiratory failure secondary to pulmonary * Hypertension * Seizure disorder * Pulmonary hypertension * COPD * History of CVA Recommendations * Patient baseline serum creatinine appears to be in the 3-4 range * She is currently responding to loop diuretics. no urgent indication for dialysis at this time * Continue loop diuretics as needed * Avoid nephrotoxins * Monitor fluid status and electrolytes closely * Renal ultrasound showing bilateral nonobstructing stones * Urine shows 4+ dipstick protein as well as pyuria and microhematuria. Follow- up results of vasculitis workup Subjective Date of service: 04/16/18 Principal diagnosis: Acute respiratory failure, secondary to seizure episode. Chronic kidney di Interval history: resting well in bed today Objective - Exam Narrative Exam: General appearance: well-developed, well-nourished, appears stated age, intubated EENT: PERRL, mucous membranes moist Neck: no JVD, no thyromegaly Respiratory: Present: Clear to Ascultation Cardiology: regular, normal heart rate, S1S2, no murmurs Gastrointestinal: normal, normoactive bowel sounds Integumentary: other (no edema) - Vital Signs Vital signs: Vital Signs - 12hr 04/15/18 04/15/18 04/15/18 21:00 21:08 22:00 Temperature Pulse Rate 77 78 90 Pulse Rate [ From Monitor] Respiratory 20 20 Rate Blood Pressure 147/76 147/76 129/67 O2 Sat by Pulse 99 96 Oximetry 04/15/18 04/15/18 04/15/18 22:46 23:00 23:05 Temperature Pulse Rate 84 79 82 Pulse Rate [ From Monitor] Respiratory 20 18 25 H Rate Blood Pressure 136/74 139/77 139/77 O2 Sat by Pulse 93 94 100 Oximetry 04/16/18 04/16/18 04/16/18 00:00 01:00 02:01 Temperature 100.2 F H Pulse Rate 86 78 81 Pulse Rate [ 77 From Monitor] Respiratory 16 23 20 Rate Blood Pressure 136/116 125/67 137/77 O2 Sat by Pulse 98 95 93 Oximetry 04/16/18 04/16/18 04/16/18 03:00 04:00 05:00 Temperature 99.3 F Pulse Rate 79 79 81 Pulse Rate [ 81 From Monitor] Respiratory 20 21 26 H Rate Blood Pressure 124/66 138/74 153/78 O2 Sat by Pulse 99 97 99 Oximetry 04/16/18 04/16/18 04/16/18 05:35 06:01 07:00 Temperature Pulse Rate 80 77 78 Pulse Rate [ From Monitor] Respiratory 19 17 Rate Blood Pressure 144/79 120/64 125/71 O2 Sat by Pulse 100 99 Oximetry 04/16/18 07:42 Temperature Pulse Rate 81 Pulse Rate [ From Monitor] Respiratory Rate Blood Pressure 125/77 O2 Sat by Pulse 98 Oximetry - Lab 04/16/18 03:51 04/16/18 03:51 Most recent lab results Calcium 8.1 mg/dL (8.4-10.2) L 04/16/18 03:51 Phosphorus 4.90 mg/dL (2.5-4.5) H 04/14/18 08:01 Magnesium 1.90 mg/dL (1.7-2.3) 04/14/18 08:01 Urine Creatinine 85.5 mg/dL (0.1-20.0) H 04/14/18 11:23 Urine Sodium 82 mmol/L 04/14/18 11:23 Urine Total Protein 152 mg/dL (5-11.8) H 04/14/18 11:23 Medications & Allergies - Medications Allergies/Adverse Reactions: Allergies No Known Allergies Allergy (Verified 06/20/13 01:16) Home Medications: Home Medications Medication Instructions Recorded Confirmed Last Taken Type Lispro Insulin [Humalog] 15 unit SQ BID 07/17/17 02/17/18 02/16/18 History Aspirin EC [Aspirin Enteric Coated 81 mg PO QDAY #30 tablet 07/22/17 02/17/18 02/17/18 Rx TAB] 81mg Apixaban [Eliquis] 2.5 mg PO BID 60 Days tablet 02/22/18 Unknown Rx AtorvaSTATin [Lipitor] 20 mg PO QHS #30 tablet 02/22/18 Unknown Rx Furosemide [Lasix TAB] 80 mg PO 0600,1800 #30 tablet 02/22/18 Unknown Rx Insulin Glargine,Hum.rec.anlog 20 unit SQ QHS #30 insuln.pen 02/22/18 Unknown Rx [Lantus Solostar] Lisinopril [Zestril TAB] 20 mg PO QDAY #30 tablet 02/22/18 Unknown Rx Lispro Insulin [Humalog] 0 unit SUB-Q ACHS units 02/22/18 Unknown Rx Metoprolol Xl [Metoprolol 25 mg PO QDAY #30 tablet 02/22/18 Unknown Rx SUCCINATE ER TAB] Potassium Chloride [K-Dur] 20 meq PO Q12HR #60 tablet 02/22/18 Unknown Rx hydrALAZINE [Apresoline TAB] 25 mg PO TID #90 tablet 02/22/18 Unknown Rx levETIRAcetam [Keppra TAB] 500 mg PO BID #90 tablet 02/22/18 Unknown Rx oxyCODONE /ACETAMINOPHEN [Percocet 1 tab PO Q6H PRN #30 tablet 02/22/18 Unknown Rx 5/325 mg] Active Medications: Generic Name Dose Route Start Last Admin Trade Name Freq PRN Reason Stop Dose Admin Albuterol 2.5 mg 04/13/18 14:57 Proventil IH Q3H PRN Shortness Of Breath Apixaban 2.5 mg 04/14/18 18:00 04/15/18 21:08 Eliquis FEEDTUBE 2.5 mg Q12HR CECILE Administration Protocol Dextrose 50 ml 04/14/18 19:05 04/15/18 12:24 D50w (25gm) Syringe IV 50 ml PRN PRN Administration Hypoglycemia Famotidine 20 mg 04/15/18 10:00 04/15/18 09:02 Pepcid PO 20 mg DAILY CECILE Administration Hydralazine HCl 10 mg 04/14/18 16:15 04/14/18 16:33 Apresoline IV 10 mg Q4HR PRN Administration SBP >150 or DBP >90 Hydralazine HCl 25 mg 04/14/18 17:00 04/16/18 05:35 Apresoline PO 25 mg Q8HR CECILE Administration Hydrophilic Ointment 1 applic 04/13/18 13:43 Vaseline Lip Therapy TP Q2HR PRN Dry Lips Propofol 1,000 mg in 100 mls @ 3.062 mls/hr 04/13/18 16:00 04/14/18 16:50 Diprivan 10 Mg/Ml IV 0 mcg/kg/min TITR CECILE 0 mls/hr Titration Protocol 5 MCG/KG/MIN Levetiracetam 750 mg 04/15/18 11:00 04/15/18 21:07 Keppra PO 750 mg BID CECILE Administration Lorazepam 2 mg 04/13/18 13:43 04/15/18 23:19 Ativan IV 2 mg Q10MIN PRN Administration Agitation Metoprolol Tartrate 25 mg 04/14/18 11:00 04/15/18 09:02 Lopressor PO 25 mg QDAY CECILE Administration Multi-Ingred Cream/Lotion/Oil/Oint 1 applic 04/13/18 13:43 Artificial Tears Ophth Oint OU Q4HR PRN Dry Eye(s) Potassium Chloride 20 meq 04/15/18 10:00 04/15/18 22:36 Potassium Chloride PO 20 meq Q12HR CECILE Administration Sodium Chloride 10 ml 04/13/18 22:00 04/15/18 22:36 Sodium Chloride Flush Syringe 10 Ml IV 10 ml BID CECILE Administration Sodium Chloride 10 ml 04/13/18 14:57 Sodium Chloride Flush Syringe 10 Ml IV PRN PRN LINE FLUSH
--- NOTE | 2018-04-16 09:27 | Progress Note ---
Assessment and Plan Acute respiratory failure, secondary to seizure episode. Chronic kidney disease. Medication noncompliance COPD per notes Recommendations Bedside rapid shallow index showed index of 88 from 0 cc support to 8/5 cm pressure-support CPAP level. Discussed with CROSSCUTTER, proceed with weaning Continue diureses. Chest x-ray still with vascular congestion. If unexplained sedation noted, repeat ammonia levels Keep PIP < 30 Sedation vacation Continue antiseizure medications DVT prophylaxis PPI prophylaxis No family available for case discussion Critical care time was 31 minutes of [id number] evaluation and coordination of care Subjective Date of service: 04/16/18 Principal diagnosis: Acute respiratory failure, secondary to seizure episode. Chronic kidney di Interval history: Sedated but responsive when stimulated Objective Vital Signs - 12hr 04/15/18 04/15/18 04/15/18 22:00 22:46 23:00 Temperature Pulse Rate 90 84 79 Pulse Rate [ From Monitor] Respiratory 20 20 18 Rate Blood Pressure 129/67 136/74 139/77 O2 Sat by Pulse 96 93 94 Oximetry 04/15/18 04/16/18 04/16/18 23:05 00:00 01:00 Temperature 100.2 F H Pulse Rate 82 86 78 Pulse Rate [ 77 From Monitor] Respiratory 25 H 16 23 Rate Blood Pressure 139/77 136/116 125/67 O2 Sat by Pulse 100 98 95 Oximetry 04/16/18 04/16/18 04/16/18 02:01 03:00 04:00 Temperature 99.3 F Pulse Rate 81 79 79 Pulse Rate [ 81 From Monitor] Respiratory 20 20 21 Rate Blood Pressure 137/77 124/66 138/74 O2 Sat by Pulse 93 99 97 Oximetry 04/16/18 04/16/18 04/16/18 05:00 05:35 06:01 Temperature Pulse Rate 81 80 77 Pulse Rate [ From Monitor] Respiratory 26 H 19 Rate Blood Pressure 153/78 144/79 120/64 O2 Sat by Pulse 99 100 Oximetry 04/16/18 04/16/18 07:00 07:42 Temperature Pulse Rate 78 81 Pulse Rate [ From Monitor] Respiratory 17 Rate Blood Pressure 125/71 125/77 O2 Sat by Pulse 99 98 Oximetry Constitutional: no acute distress, asleep ENT: other (orally intubated and sedated) Neck: no JVD Effort: normal Ascultation: Bilateral: clear Percussion: Bilateral: not dull Cardiovascular: regular rate and rhythm Gastrointestinal: normoactive bowel sounds, soft, non-tender Extremities: no edema, pink and warm, pulses normal Neurologic: unable to assess, other (RASS -1) CBC and BMP: 04/16/18 03:51 04/16/18 03:51 ABG, PT/INR, D-dimer: ABG POC ABG pH 7.404 (7.35-7.45) 04/15/18 05:29 POC ABG pCO2 29.8 (35-45) L 04/15/18 05:29 POC ABG pO2 100 (80-105) 04/15/18 05:29 POC ABG HCO3 18.6 04/15/18 05:29 POC ABG Total CO2 20 04/15/18 05:29 POC ABG O2 Sat 98 04/15/18 05:29 PT/INR, D-dimer PT 14.3 Sec. (12.2-14.9) 04/13/18 13:41 INR 1.07 (0.87-1.13) 04/13/18 13:41 Abnormal lab findings: Abnormal Labs 04/13/18 04/13/18 04/13/18 13:41 13:59 13:59 WBC MCV 103 H RDW 16.8 H Lymph % (Auto) Lymph # Seg Neutrophils % 73.1 H POC ABG pH POC ABG pCO2 POC ABG pO2 Sodium 136 L Carbon Dioxide 13 L BUN 30 H Creatinine 4.0 H Glucose 210 H POC Glucose Lactic Acid 3.10 H* Calcium 8.1 L Phosphorus Alkaline Phosphatase 130 H Ammonia NT-Pro-B Natriuret Pep 36013 H Total Protein Albumin 2.9 L Urine WBC (Auto) Urine Creatinine Urine Total Protein 04/13/18 04/13/18 04/13/18 13:59 14:07 14:26 WBC MCV RDW Lymph % (Auto) Lymph # Seg Neutrophils % POC ABG pH 7.262 L POC ABG pCO2 32.8 L POC ABG pO2 Sodium Carbon Dioxide BUN Creatinine Glucose POC Glucose Lactic Acid Calcium Phosphorus Alkaline Phosphatase Ammonia 65.0 H NT-Pro-B Natriuret Pep Total Protein Albumin Urine WBC (Auto) 22.0 H Urine Creatinine Urine Total Protein 04/13/18 04/14/18 04/14/18 14:30 05:06 08:01 WBC MCV 98 H RDW 15.9 H Lymph % (Auto) 9.3 L Lymph # 0.7 L Seg Neutrophils % 83.8 H POC ABG pH POC ABG pCO2 31.8 L POC ABG pO2 127 H Sodium Carbon Dioxide BUN Creatinine Glucose POC Glucose 181 H Lactic Acid Calcium Phosphorus Alkaline Phosphatase Ammonia NT-Pro-B Natriuret Pep Total Protein Albumin Urine WBC (Auto) Urine Creatinine Urine Total Protein 04/14/18 04/14/18 04/14/18 08:01 11:23 11:23 WBC MCV RDW Lymph % (Auto) Lymph # Seg Neutrophils % POC ABG pH POC ABG pCO2 POC ABG pO2 Sodium Carbon Dioxide 18 L BUN 30 H Creatinine 4.1 H 3.9 H Glucose POC Glucose Lactic Acid Calcium 8.1 L Phosphorus 4.90 H Alkaline Phosphatase Ammonia NT-Pro-B Natriuret Pep Total Protein 6.0 L Albumin 2.6 L Urine WBC (Auto) Urine Creatinine 85.5 H Urine Total Protein 152 H 04/14/18 04/14/18 04/15/18 19:04 23:37 03:17 WBC 11.3 H MCV RDW 15.7 H Lymph % (Auto) Lymph # Seg Neutrophils % POC ABG pH POC ABG pCO2 POC ABG pO2 Sodium Carbon Dioxide BUN Creatinine Glucose POC Glucose 69 L 65 L Lactic Acid Calcium Phosphorus Alkaline Phosphatase Ammonia NT-Pro-B Natriuret Pep Total Protein Albumin Urine WBC (Auto) Urine Creatinine Urine Total Protein 04/15/18 04/15/18 04/15/18 03:17 05:27 05:29 WBC MCV RDW Lymph % (Auto) Lymph # Seg Neutrophils % POC ABG pH POC ABG pCO2 29.8 L POC ABG pO2 Sodium Carbon Dioxide 18 L BUN 33 H Creatinine 4.1 H Glucose 63 L POC Glucose 66 L Lactic Acid Calcium 8.1 L Phosphorus Alkaline Phosphatase Ammonia NT-Pro-B Natriuret Pep Total Protein Albumin Urine WBC (Auto) Urine Creatinine Urine Total Protein 04/15/18 04/15/18 04/15/18 08:50 09:32 11:38 WBC MCV RDW Lymph % (Auto) Lymph # Seg Neutrophils % POC ABG pH POC ABG pCO2 POC ABG pO2 Sodium Carbon Dioxide BUN Creatinine Glucose POC Glucose 64 L 114 H 69 L Lactic Acid Calcium Phosphorus Alkaline Phosphatase Ammonia NT-Pro-B Natriuret Pep Total Protein Albumin Urine WBC (Auto) Urine Creatinine Urine Total Protein 04/16/18 04/16/18 03:51 03:51 WBC MCV 98 H RDW 15.5 H Lymph % (Auto) Lymph # Seg Neutrophils % POC ABG pH POC ABG pCO2 POC ABG pO2 Sodium Carbon Dioxide 19 L BUN 39 H Creatinine 4.2 H Glucose POC Glucose Lactic Acid Calcium 8.1 L Phosphorus Alkaline Phosphatase Ammonia NT-Pro-B Natriuret Pep Total Protein Albumin Urine WBC (Auto) Urine Creatinine Urine Total Protein
[2018-04-16] MEDS: ELIQUIS FEEDTUBE SCH ×2 (10:00→21:57)
[2018-04-16] MEDS: PEPCID PO SCH (10:00)
[2018-04-16] MEDS: LOPRESSOR PO SCH (10:00)
[2018-04-16] MEDS: KEPPRA PO SCH ×2 (10:00→21:57)
[2018-04-16] MEDS: SODIUM CHLORIDE FLUSH SYRINGE 10 ML IV SCH ×2 (10:01→21:58)
[2018-04-16] MEDS: POTASSIUM CHLORIDE PO SCH (10:07)
[2018-04-16] MEDS: D5W 1,000 ML IV SCH (12:01)
--- NOTE | 2018-04-16 12:43 | Progress Note ---
Addendum entered and electronically signed by SHANELLE OVERTON MD 04/16/18 14:24: Supportive monitoring, medical therapy for coronary artery disease and ischemic cardiomyopathy. Original Note: Assessment and Plan Status post seizure Respiratory failure currently intubated on mechanical ventilator Hx of coronary artery disease Ischemic cardiomyopathy Paroxysmal atrial fibrillation on oral anticoagulation with low dose Eliquis. RBBB, chronic Hypertension Chronic kidney disease Non-specific troponin in the setting of renal failure Echocardiogram 02/2018 reports a left ventricular ejection fraction 20-25%. There was moderate tricuspid regurgitation and pulmonary artery systolic pressure is mildly elevated at 40. Stress test 05/2017: Large fixed lateral wall defect Recommendations: Continue medical management for ischemic cardiomyopathy and coronary artery disease as tolerated. Otherwise, conservative cardiac management. Subjective Date of service: 04/16/18 Principal diagnosis: Acute respiratory failure, secondary to seizure episode. Chronic kidney di Interval history: Patient remains sedated, intubated on mechanical ventilation. Objective Vital Signs Temp Pulse Pulse Resp BP Pulse Ox 04/16/18 12:00 99.7 F H 73 21 145/76 93 04/16/18 11:00 74 18 133/76 98 04/16/18 10:00 85 21 141/80 97 04/16/18 09:00 81 23 145/77 99 04/16/18 08:00 99.7 F H 82 29 H 145/79 97 04/16/18 07:42 81 125/77 98 04/16/18 07:00 78 17 125/71 99 04/16/18 06:01 77 19 120/64 100 04/16/18 05:35 80 144/79 04/16/18 05:00 81 26 H 153/78 99 04/16/18 04:00 99.3 F 79 81 21 138/74 97 04/16/18 03:00 79 20 124/66 99 04/16/18 02:01 81 20 137/77 93 04/16/18 01:00 78 23 125/67 95 04/16/18 00:00 100.2 F H 86 77 16 136/116 98 04/15/18 23:05 82 25 H 139/77 100 04/15/18 23:00 79 18 139/77 94 04/15/18 22:46 84 20 136/74 93 04/15/18 22:00 90 20 129/67 96 01/07/19 21:08 78 147/76 04/15/18 21:00 77 20 147/76 99 04/15/18 20:00 100 F H 80 92 H 28 H 153/78 95 04/15/18 19:17 76 142/69 90 04/15/18 19:00 78 22 142/69 100 04/15/18 18:00 78 25 H 151/75 100 04/15/18 17:00 80 26 H 141/76 94 04/15/18 16:49 81 142/73 90 04/15/18 16:00 98.6 F 92 H 23 144/76 92 04/15/18 15:00 80 18 173/74 99 04/15/18 14:00 79 24 132/71 100 04/15/18 13:00 131/80 99 - Physical Examination General: Other (intubated on the vent) Cardiac: Positive: Reg Rate and Rhythm Extremities: Absent: edema - Labs and Meds CBC 04/16/18 Range/Units 03:51 WBC 10.1 (4.5-11.0) K/mm3 RBC 3.72 (3.65-5.03) M/mm3 Hgb 11.8 (10.1-14.3) gm/dl Hct 36.4 (30.3-42.9) % Plt Count 156 (140-440) K/mm3 Comprehensive Metabolic Panel 04/16/18 Range/Units 03:51 Sodium 140 (137-145) mmol/L Potassium 4.7 (3.6-5.0) mmol/L Chloride 106.5 (98-107) mmol/L Carbon Dioxide 19 L (22-30) mmol/L BUN 39 H (7-17) mg/dL Creatinine 4.2 H (0.7-1.2) mg/dL Glucose 80 (65-100) mg/dL Calcium 8.1 L (8.4-10.2) mg/dL
--- NOTE | 2018-04-16 20:30 | Progress Note ---
Assessment and Plan Assessment and plan: 42-year-old woman who presented after a witnessed seizure. She was intubated, admitted to the ICU. pmh; HTN, Systolic CHF(EF 20%), CVA, DM, Seizure Disorder, COPD, Pulmonary HTN, CAD S/P Stent Placement Status epilepticus -Continue AED, dose was increased, neurology consult Acute respiratory failure secondary to seizure episode, on MV greater than 96 hours -Management per pulmonology BLAS on CKD -Had received dialysis previously -Nephrology input appreciated, responding to loop diuretics. No further indication for dialysis -Suspect that she is near her baseline creatinine Right bundle branch block, chronic, paroxysmal atrial fibrillation, systolic CHF EF 20% Hypercoagulable state -Cardiology input appreciated, continue conservative management -[facility] Critical care time 35 minutes History Interval history: No seizures no fevers no agitation, no vomiting Hospitalist Physical - Physical exam Narrative exam: General.: Appears well, no distress, nontoxic HEENT: Moist mucous membranes, extraocular muscles intact, no lymphadenopathy Neck: supple Cardiac: S1-S2 heard Lungs: clear to auscultation bilaterally Abdomen: soft , nontender, nondistended, bowel sounds positive Extremities: no edema clubbing or cyanosis Skin: no rash or lesions Neurologic: Intubated, drowsy - Constitutional Vitals: Temp Pulse Resp BP Pulse Ox 100 F H 76 16 140/75 94 04/16/18 16:00 04/16/18 19:01 04/16/18 19:01 04/16/18 19:01 04/16/18 19:01 General appearance: Present: severe distress Results - Labs CBC & Chem 7: 04/16/18 03:51 04/17/18 09:45 Labs: Laboratory Last Values WBC 10.1 K/mm3 (4.5-11.0) 04/16/18 03:51 RBC 3.72 M/mm3 (3.65-5.03) 04/16/18 03:51 Hgb 11.8 gm/dl (10.1-14.3) 04/16/18 03:51 Hct 36.4 % (30.3-42.9) 04/16/18 03:51 MCV 98 fl (79-97) H 04/16/18 03:51 MCH 32 pg (28-32) 04/16/18 03:51 MCHC 33 % (30-34) 04/16/18 03:51 RDW 15.5 % (13.2-15.2) H 04/16/18 03:51 Plt Count 156 K/mm3 (140-440) 04/16/18 03:51 Lymph % (Auto) 9.3 % (13.4-35.0) L 04/14/18 08:01 [place] % (Auto) 5.6 % (0.0-7.3) 04/14/18 08:01 Eos % (Auto) 0.7 % (0.0-4.3) 04/14/18 08:01 Baso % (Auto) 0.6 % (0.0-1.8) 04/14/18 08:01 Lymph # 0.7 K/mm3 (1.2-5.4) L 04/14/18 08:01 [place] # 0.4 K/mm3 (0.0-0.8) 04/14/18 08:01 Eos # 0.1 K/mm3 (0.0-0.4) 04/14/18 08:01 Baso # 0.0 K/mm3 (0.0-0.1) 04/14/18 08:01 Seg Neutrophils % 83.8 % (40.0-70.0) H 04/14/18 08:01 Seg Neutrophils # 6.4 K/mm3 (1.8-7.7) 04/14/18 08:01 PT 14.3 Sec. (12.2-14.9) 04/13/18 13:41 INR 1.07 (0.87-1.13) 04/13/18 13:41 APTT 28.9 Sec. (24.2-36.6) 04/13/18 13:41 Thrombin Time 17.3 Sec. (15.1-19.6) 04/13/18 13:41 POC ABG pH 7.404 (7.35-7.45) 04/15/18 05:29 POC ABG pCO2 29.8 (35-45) L 04/15/18 05:29 POC ABG pO2 100 (80-105) 04/15/18 05:29 POC ABG HCO3 18.6 04/15/18 05:29 POC ABG Total CO2 20 04/15/18 05:29 POC ABG O2 Sat 98 04/15/18 05:29 POC ABG Base Excess -6 04/15/18 05:29 FiO2 30 % 04/15/18 05:29 Sodium 140 mmol/L (137-145) 04/16/18 03:51 Potassium 4.7 mmol/L (3.6-5.0) 04/16/18 03:51 Chloride 106.5 mmol/L (98-107) 04/16/18 03:51 Carbon Dioxide 19 mmol/L (22-30) L 04/16/18 03:51 Anion Gap 19 mmol/L 04/16/18 03:51 BUN 39 mg/dL (7-17) H 04/16/18 03:51 Creatinine 4.2 mg/dL (0.7-1.2) H 04/16/18 03:51 Estimated GFR 12 ml/min 04/16/18 03:51 BUN/Creatinine Ratio 9 % 04/16/18 03:51 Glucose 80 mg/dL (65-100) 04/16/18 03:51 POC Glucose 91 (70-105) 04/16/18 18:22 Lactic Acid 1.10 mmol/L (0.7-2.0) 04/13/18 16:23 Calcium 8.1 mg/dL (8.4-10.2) L 04/16/18 03:51 Phosphorus 4.90 mg/dL (2.5-4.5) H 04/14/18 08:01 Magnesium 1.90 mg/dL (1.7-2.3) 04/14/18 08:01 Total Bilirubin 0.60 mg/dL (0.1-1.2) 04/14/18 08:01 Direct Bilirubin 0.2 mg/dL (0-0.2) 04/13/18 13:59 Indirect Bilirubin 0.3 mg/dL 04/13/18 13:59 AST 14 units/L (5-40) 04/14/18 08:01 ALT 7 units/L (7-56) 04/14/18 08:01 Alkaline Phosphatase 106 units/L (35-129) 04/14/18 08:01 Ammonia 47.0 umol/L (25-60) 04/16/18 11:17 Total Creatine Kinase 92 units/L (30-135) 04/13/18 13:59 CK-MB (CK-2) 3.7 ng/mL (0.0-4.0) 04/13/18 13:59 CK-MB (CK-2) Rel Index 4.0 (0-4) 04/13/18 13:59 Troponin T 0.010 ng/mL (0.00-0.029) 04/13/18 13:59 NT-Pro-B Natriuret Pep 64688 pg/mL (0-450) H 04/13/18 13:59 Total Protein 6.0 g/dL (6.3-8.2) L 04/14/18 08:01 Albumin 2.6 g/dL (3.9-5) L 04/14/18 08:01 Albumin/Globulin Ratio 0.8 % 04/14/18 08:01 Lipase 44 units/L (13-60) 04/13/18 13:59 Urine Color Diane (Yellow) 04/13/18 14:26 Urine Turbidity Cloudy (Clear) 04/13/18 14:26 Urine pH 5.0 (5.0-7.0) 04/13/18 14:26 Ur Specific [place] 1.017 (1.003-1.030) 04/13/18 14:26 Urine Protein >500 mg/dL (Negative) 04/13/18 14:26 Urine Glucose (UA) >=500 mg/dL (Negative) 04/13/18 14:26 Urine Ketones Neg mg/dL (Negative) 04/13/18 14:26 Urine Blood Neg (Negative) 04/13/18 14:26 Urine Nitrite Neg (Negative) 04/13/18 14:26 Urine Bilirubin Neg (Negative) 04/13/18 14:26 Urine Urobilinogen < 2.0 mg/dL (<2.0) 04/13/18 14:26 Ur Leukocyte Esterase Neg (Negative) 04/13/18 14:26 Urine WBC (Auto) 22.0 /HPF (0.0-6.0) H 04/13/18 14:26 Urine RBC (Auto) 17.0 /HPF (0.0-6.0) 04/13/18 14:26 U Epithel Cells (Auto) 3.0 /HPF (0-13.0) 04/13/18 14:26 Urine Bacteria (Auto) 4+ /HPF (Negative) 04/13/18 14:26 Urine Mucus Few /HPF 04/13/18 14:26 Urine Yeast (Budding) 3+ /HPF 04/13/18 14:26 Urine Eosinophils 7% (None Seen) 04/14/18 11:23 Urine Creatinine 85.5 mg/dL (0.1-20.0) H 04/14/18 11:23 Protein/Creatinin Ratio 1.78 04/14/18 11:23 Urine Sodium 82 mmol/L 04/14/18 11:23 Fraction Sodium Excret 2.3 04/14/18 11:23 Urine Total Protein 152 mg/dL (5-11.8) H 04/14/18 11:23 Urine Opiates Screen Presumptive negative 04/13/18 14:26 Urine Methadone Screen Presumptive negative 04/13/18 14:26 Ur Barbiturates Screen Presumptive negative 04/13/18 14:26 Ur Phencyclidine Scrn Presumptive negative 04/13/18 14:26 Ur Amphetamines Screen Presumptive negative 04/13/18 14:26 U Benzodiazepines Scrn Presumptive negative 04/13/18 14:26 Urine Cocaine Screen Presumptive negative 04/13/18 14:26 U Marijuana (THC) Screen Presumptive negative 04/13/18 14:26 Drugs of Abuse Note Disclamer 04/13/18 14:26 Hepatitis A IgM Ab Non-reactive (NonReactive) 04/14/18 11:56 Hep Bs Antigen Non-reactive (Negative) 04/14/18 11:56 Hep B Core IgM Ab Non-reactive (NonReactive) 04/14/18 11:56 Hepatitis C Antibody Non-reactive (NonReactive) 04/14/18 11:56 Nutrition/Malnutrition Assess - Dietary Evaluation Nutrition/Malnutrition Findings: Nutrition Notes Start: 04/14/18 09:47 Freq: Status: Active Protocol: Document 04/16/18 13:40 KH (Rec: 04/16/18 14:40 [email or web address]) Co-Sign 04/16/18 13:40 LP Nutrition Notes Initial or Follow up Reassessment Current Diagnoses CKD(stage I-IV) COPD Diabetes Hypertension Heart Failure Respiratory Failure Stroke Other Pertinent Diagnosis Hx of seizures, Wounds on R and L LE, fungal rash on groin and ischial fold Current Diet NPO Labs/Tests BUN: 39 Cr: 4.2 Medications Propofol @ 3.062 ml/hr (81 kcals) Height 5 ft 8 in Weight 102.058 kg [place] Body Weight (lbs) 140.0 BMI 34.2 Weight Status Obese Subjective/Other Information Pt f/u for TF consult and extubation Percent of energy/protein needs met: 0%/0% Burn Absent Trauma Absent #2 Nutrition Diagnoses Increased nutrient needs ( specify in comment below) Comments: Protein Etiology Wound healing As Evidenced by Signs and Symptoms Presence of wounds on R and L LE Diagnosis Progress(for reassessment Continues documentation) #1 Nutrition Diagnoses Inadequate oral intake Diagnosis Progress(for reassessment Continues documentation) Is patient on ventilator? Yes Is Patient Ambulatory and/or Out of Bed No REE-([place]-confined to bed) 2071.800 Kcal/Kg value to use for calculation 16 Approximate Energy Requirements Using 1633 kcal/Kg Calculation Used for Recommendations Kcal/kg Additional Notes Adj BW: 82.8kg Protein needs are 166g (2g/kg AdjBW) Fluid needs are 1ml/kcal or per MD Nutrition Intervention Nutrition Support: Vital High Protein at 70ml/hr with water flush of 50ml q4h Kcal 1,680 Protein (gm) 147 Fluid (mL) 1,704 Goal #1 TF initiation Goal #2 TF tolerance Anticipated Discharge Needs: Unable to determine at this time Follow-Up By: 04/18/18 Additional Comments F/U for TF initiation and TF tolerance
--- NOTE | 2018-04-17 04:31 | XRay Report ---
FINAL REPORT PROCEDURE: XR CHEST 1V AP TECHNIQUE: Chest radiograph anteroposterior view. CPT 75971 HISTORY: follow up respiratory failure COMPARISON: 04/16/2018 FINDINGS: Heart: The heart is borderline enlarged. Mediastinum/Vessels: Normal. Lungs/Pleural space: The lungs are expanded. There are right perihilar infiltrates. There is no pleur al effusion or pneumothorax.. Bony thorax: No acute osseous abnormality. Life support devices: Endotracheal tube is in the mid trachea. NG tube is in the stomach.. IMPRESSION: The heart is borderline enlarged. The lungs are expanded. There are right perihilar infiltrates. There is no pleural effusion or pneumo thorax.. Endotracheal tube is in the mid trachea. NG tube is in the stomach.. .
[2018-04-17] MEDS: D50W (25GM) Syringe IV PRN (05:41)
[2018-04-17] MEDS: APRESOLINE PO SCH ×3 (05:42→22:34)
--- NOTE | 2018-04-17 08:39 | Progress Note ---
Assessment and Plan impression * BLAS on Chronic kidney disease * Respiratory failure secondary to pulmonary * Hypertension * Seizure disorder * Pulmonary hypertension * COPD * History of CVA Recommendations * Patient baseline serum creatinine appears to be in the 3-4 range * no urgent indication for dialysis at this time * Continue loop diuretics as needed, currently being held * Avoid nephrotoxins * Monitor fluid status and electrolytes closely * Renal ultrasound showing bilateral nonobstructing stones * Urine shows 4+ dipstick protein as well as pyuria and microhematuria. Follow- up results of vasculitis workup Subjective Date of service: 04/17/18 Principal diagnosis: Acute respiratory failure, secondary to seizure episode. Chronic kidney di Interval history: resting well in bed today Objective - Exam Narrative Exam: General appearance: well-developed, well-nourished, appears stated age, intubated EENT: PERRL, mucous membranes moist Neck: no JVD, no thyromegaly Respiratory: Present: Clear to Ascultation Cardiology: regular, normal heart rate, S1S2, no murmurs Gastrointestinal: normal, normoactive bowel sounds Integumentary: other (no edema) - Vital Signs Vital signs: Vital Signs - 12hr 04/16/18 04/16/18 04/16/18 21:00 21:58 22:00 Temperature Pulse Rate 76 75 72 Respiratory 18 20 Rate Blood Pressure 141/80 132/75 143/118 O2 Sat by Pulse 100 99 Oximetry 04/16/18 04/16/18 04/16/18 22:20 23:00 23:03 Temperature Pulse Rate 72 78 79 Respiratory 22 20 24 Rate Blood Pressure 139/81 150/83 O2 Sat by Pulse 94 94 93 Oximetry 04/16/18 04/17/18 04/17/18 23:55 00:00 01:00 Temperature 98.8 F Pulse Rate 76 82 Respiratory 22 24 27 H Rate Blood Pressure 141/76 157/85 O2 Sat by Pulse 94 100 97 Oximetry 04/17/18 04/17/18 04/17/18 02:00 02:33 03:01 Temperature Pulse Rate 87 72 91 H Respiratory 32 H 22 18 Rate Blood Pressure 150/79 167/89 O2 Sat by Pulse 96 94 94 Oximetry 04/17/18 04/17/18 04/17/18 03:10 04:00 04:35 Temperature Pulse Rate 91 H 86 82 Respiratory 22 22 Rate Blood Pressure 161/88 161/88 O2 Sat by Pulse 94 99 98 Oximetry 04/17/18 04/17/18 04/17/18 05:00 05:42 05:55 Temperature Pulse Rate 87 79 79 Respiratory 30 H 25 H Rate Blood Pressure 162/91 161/72 O2 Sat by Pulse 100 94 Oximetry 04/17/18 04/17/18 06:00 07:54 Temperature 100.3 F H Pulse Rate 81 Respiratory 24 Rate Blood Pressure 161/79 O2 Sat by Pulse 95 Oximetry - Lab 04/16/18 03:51 04/17/18 06:10 Most recent lab results Calcium 8.1 mg/dL (8.4-10.2) L 04/16/18 03:51 Phosphorus 4.90 mg/dL (2.5-4.5) H 04/14/18 08:01 Magnesium 1.90 mg/dL (1.7-2.3) 04/14/18 08:01 Urine Creatinine 85.5 mg/dL (0.1-20.0) H 04/14/18 11:23 Urine Sodium 82 mmol/L 04/14/18 11:23 Urine Total Protein 152 mg/dL (5-11.8) H 04/14/18 11:23 Medications & Allergies - Medications Allergies/Adverse Reactions: Allergies No Known Allergies Allergy (Verified 06/20/13 01:16) Home Medications: Home Medications Medication Instructions Recorded Confirmed Last Taken Type Lispro Insulin [Humalog] 15 unit SQ BID 07/17/17 02/17/18 02/16/18 History Aspirin EC [Aspirin Enteric Coated 81 mg PO QDAY #30 tablet 07/22/17 02/17/18 02/17/18 Rx TAB] 81mg Apixaban [Eliquis] 2.5 mg PO BID 60 Days tablet 02/22/18 Unknown Rx AtorvaSTATin [Lipitor] 20 mg PO QHS #30 tablet 02/22/18 Unknown Rx Furosemide [Lasix TAB] 80 mg PO 0600,1800 #30 tablet 02/22/18 Unknown Rx Insulin Glargine,Hum.rec.anlog 20 unit SQ QHS #30 insuln.pen 02/22/18 Unknown Rx [Lantus Solostar] Lisinopril [Zestril TAB] 20 mg PO QDAY #30 tablet 02/22/18 Unknown Rx Lispro Insulin [Humalog] 0 unit SUB-Q ACHS units 02/22/18 Unknown Rx Metoprolol Xl [Metoprolol 25 mg PO QDAY #30 tablet 02/22/18 Unknown Rx SUCCINATE ER TAB] Potassium Chloride [K-Dur] 20 meq PO Q12HR #60 tablet 02/22/18 Unknown Rx hydrALAZINE [Apresoline TAB] 25 mg PO TID #90 tablet 02/22/18 Unknown Rx levETIRAcetam [Keppra TAB] 500 mg PO BID #90 tablet 02/22/18 Unknown Rx oxyCODONE /ACETAMINOPHEN [Percocet 1 tab PO Q6H PRN #30 tablet 02/22/18 Unknown Rx 5/325 mg] Active Medications: Generic Name Dose Route Start Last Admin Trade Name Freq PRN Reason Stop Dose Admin Albuterol 2.5 mg 04/13/18 14:57 Proventil IH Q3H PRN Shortness Of Breath Apixaban 2.5 mg 04/14/18 18:00 04/16/18 21:57 Eliquis FEEDTUBE 2.5 mg Q12HR CECILE Administration Protocol Dextrose 50 ml 04/14/18 19:05 04/17/18 05:41 D50w (25gm) Syringe IV 50 ml PRN PRN Administration Hypoglycemia Famotidine 20 mg 04/15/18 10:00 04/16/18 10:00 Pepcid PO 20 mg DAILY CECILE Administration Hydralazine HCl 10 mg 04/14/18 16:15 04/14/18 16:33 Apresoline IV 10 mg Q4HR PRN Administration SBP >150 or DBP >90 Hydralazine HCl 25 mg 04/14/18 17:00 04/17/18 05:42 Apresoline PO 25 mg Q8HR CECILE Administration Hydrophilic Ointment 1 applic 04/13/18 13:43 Vaseline Lip Therapy TP Q2HR PRN Dry Lips Propofol 1,000 mg in 100 mls @ 3.062 mls/hr 04/13/18 16:00 04/14/18 16:50 Diprivan 10 Mg/Ml IV 0 mcg/kg/min TITR CECILE 0 mls/hr Titration Protocol 5 MCG/KG/MIN Dextrose 1,000 mls @ 42 mls/hr 04/16/18 11:00 04/16/18 12:01 D5w IV 42 mls/hr DIRECT CECILE Administration Levetiracetam 750 mg 04/15/18 11:00 04/16/18 21:57 Keppra PO 750 mg BID CECILE Administration Lorazepam 2 mg 04/13/18 13:43 04/15/18 23:19 Ativan IV 2 mg Q10MIN PRN Administration Agitation Metoprolol Tartrate 25 mg 04/14/18 11:00 04/16/18 10:00 Lopressor PO 25 mg QDAY CECILE Administration Multi-Ingred Cream/Lotion/Oil/Oint 1 applic 04/13/18 13:43 Artificial Tears Ophth Oint OU Q4HR PRN Dry Eye(s) Sodium Chloride 10 ml 04/13/18 22:00 04/16/18 21:58 Sodium Chloride Flush Syringe 10 Ml IV 10 ml BID CECILE Administration Sodium Chloride 10 ml 04/13/18 14:57 04/17/18 05:42 Sodium Chloride Flush Syringe 10 Ml IV 10 ml PRN PRN Administration LINE FLUSH
--- NOTE | 2018-04-17 09:14 | Progress Note ---
Assessment and Plan Acute respiratory failure, secondary to seizure episode. Chronic kidney disease. Medication noncompliance COPD per notes Recommendations Continue diuresis. Ammonia levels normal Sedation vacation. Initiate SBP as tolerated Continue antiseizure medications Febrile. Other? Update CXR ABX? DVT prophylaxis PPI prophylaxis No family available for case discussion Critical care time was 31 minutes of [id number] evaluation and coordination of care Subjective Date of service: 04/17/18 Principal diagnosis: Acute respiratory failure, secondary to seizure episode. Chronic kidney di Interval history: Sedated but responsive when stimulated Objective Vital Signs - 12hr 04/16/18 04/16/18 04/16/18 21:58 22:00 22:20 Temperature Pulse Rate 75 72 72 Respiratory 20 22 Rate Blood Pressure 132/75 143/118 O2 Sat by Pulse 99 94 Oximetry 04/16/18 04/16/18 04/16/18 23:00 23:03 23:55 Temperature Pulse Rate 78 79 Respiratory 20 24 22 Rate Blood Pressure 139/81 150/83 O2 Sat by Pulse 94 93 94 Oximetry 04/17/18 04/17/18 04/17/18 00:00 01:00 02:00 Temperature 98.8 F Pulse Rate 76 82 87 Respiratory 24 27 H 32 H Rate Blood Pressure 141/76 157/85 150/79 O2 Sat by Pulse 100 97 96 Oximetry 04/17/18 04/17/18 04/17/18 02:33 03:01 03:10 Temperature Pulse Rate 72 91 H 91 H Respiratory 22 18 22 Rate Blood Pressure 167/89 O2 Sat by Pulse 94 94 94 Oximetry 04/17/18 04/17/18 04/17/18 04:00 04:35 05:00 Temperature Pulse Rate 86 82 87 Respiratory 22 30 H Rate Blood Pressure 161/88 161/88 162/91 O2 Sat by Pulse 99 98 100 Oximetry 04/17/18 04/17/18 04/17/18 05:42 05:55 06:00 Temperature Pulse Rate 79 79 81 Respiratory 25 H 24 Rate Blood Pressure 161/72 161/79 O2 Sat by Pulse 94 95 Oximetry 04/17/18 04/17/18 07:54 08:54 Temperature 100.3 F H Pulse Rate 87 Respiratory 30 H Rate Blood Pressure 150/84 O2 Sat by Pulse 98 Oximetry Constitutional: no acute distress, asleep ENT: other (orally intubated and sedated) Neck: no JVD Effort: normal Ascultation: Bilateral: clear Percussion: Bilateral: not dull Cardiovascular: regular rate and rhythm Gastrointestinal: normoactive bowel sounds, soft, non-tender Extremities: no edema, pink and warm, pulses normal Neurologic: unable to assess, other (RASS -1) CBC and BMP: 04/16/18 03:51 04/18/18 04:30 ABG, PT/INR, D-dimer: ABG POC ABG pH 7.371 (7.35-7.45) 04/17/18 04:33 POC ABG pCO2 28.0 (35-45) L 04/17/18 04:33 POC ABG pO2 106 (80-105) H 04/17/18 04:33 POC ABG HCO3 16.2 04/17/18 04:33 POC ABG Total CO2 17 04/17/18 04:33 POC ABG O2 Sat 98 04/17/18 04:33 PT/INR, D-dimer PT 14.3 Sec. (12.2-14.9) 04/13/18 13:41 INR 1.07 (0.87-1.13) 04/13/18 13:41 Abnormal lab findings: Abnormal Labs 04/13/18 04/13/18 04/13/18 13:41 13:59 13:59 WBC MCV 103 H RDW 16.8 H Lymph % (Auto) Lymph # Seg Neutrophils % 73.1 H POC ABG pH POC ABG pCO2 POC ABG pO2 Sodium 136 L Carbon Dioxide 13 L BUN 30 H Creatinine 4.0 H Glucose 210 H POC Glucose Lactic Acid 3.10 H* Calcium 8.1 L Phosphorus Alkaline Phosphatase 130 H Ammonia NT-Pro-B Natriuret Pep 39285 H Total Protein Albumin 2.9 L Urine WBC (Auto) Urine Creatinine Urine Total Protein 04/13/18 04/13/18 04/13/18 13:59 14:07 14:26 WBC MCV RDW Lymph % (Auto) Lymph # Seg Neutrophils % POC ABG pH 7.262 L POC ABG pCO2 32.8 L POC ABG pO2 Sodium Carbon Dioxide BUN Creatinine Glucose POC Glucose Lactic Acid Calcium Phosphorus Alkaline Phosphatase Ammonia 65.0 H NT-Pro-B Natriuret Pep Total Protein Albumin Urine WBC (Auto) 22.0 H Urine Creatinine Urine Total Protein 04/13/18 04/14/1804/14/19 14:30 05:06 08:01 WBC MCV 98 H RDW 15.9 H Lymph % (Auto) 9.3 L Lymph # 0.7 L Seg Neutrophils % 83.8 H POC ABG pH POC ABG pCO2 31.8 L POC ABG pO2 127 H Sodium Carbon Dioxide BUN Creatinine Glucose POC Glucose 181 H Lactic Acid Calcium Phosphorus Alkaline Phosphatase Ammonia NT-Pro-B Natriuret Pep Total Protein Albumin Urine WBC (Auto) Urine Creatinine Urine Total Protein 04/14/18 04/14/18 04/14/18 08:01 11:23 11:23 WBC MCV RDW Lymph % (Auto) Lymph # Seg Neutrophils % POC ABG pH POC ABG pCO2 POC ABG pO2 Sodium Carbon Dioxide 18 L BUN 30 H Creatinine 4.1 H 3.9 H Glucose POC Glucose Lactic Acid Calcium 8.1 L Phosphorus 4.90 H Alkaline Phosphatase Ammonia NT-Pro-B Natriuret Pep Total Protein 6.0 L Albumin 2.6 L Urine WBC (Auto) Urine Creatinine 85.5 H Urine Total Protein 152 H 04/14/18 04/14/18 04/15/18 19:04 23:37 03:17 WBC 11.3 H MCV RDW 15.7 H Lymph % (Auto) Lymph # Seg Neutrophils % POC ABG pH POC ABG pCO2 POC ABG pO2 Sodium Carbon Dioxide BUN Creatinine Glucose POC Glucose 69 L 65 L Lactic Acid Calcium Phosphorus Alkaline Phosphatase Ammonia NT-Pro-B Natriuret Pep Total Protein Albumin Urine WBC (Auto) Urine Creatinine Urine Total Protein 04/15/18 04/15/18 04/15/18 03:17 05:27 05:29 WBC MCV RDW Lymph % (Auto) Lymph # Seg Neutrophils % POC ABG pH POC ABG pCO2 29.8 L POC ABG pO2 Sodium Carbon Dioxide 18 L BUN 33 H Creatinine 4.1 H Glucose 63 L POC Glucose 66 L Lactic Acid Calcium 8.1 L Phosphorus Alkaline Phosphatase Ammonia NT-Pro-B Natriuret Pep Total Protein Albumin Urine WBC (Auto) Urine Creatinine Urine Total Protein 04/15/18 04/15/18 04/15/18 08:50 09:32 11:38 WBC MCV RDW Lymph % (Auto) Lymph # Seg Neutrophils % POC ABG pH POC ABG pCO2 POC ABG pO2 Sodium Carbon Dioxide BUN Creatinine Glucose POC Glucose 64 L 114 H 69 L Lactic Acid Calcium Phosphorus Alkaline Phosphatase Ammonia NT-Pro-B Natriuret Pep Total Protein Albumin Urine WBC (Auto) Urine Creatinine Urine Total Protein 04/16/18 04/16/18 04/17/18 03:51 03:51 04:33 WBC MCV 98 H RDW 15.5 H Lymph % (Auto) Lymph # Seg Neutrophils % POC ABG pH POC ABG pCO2 28.0 L POC ABG pO2 106 H Sodium Carbon Dioxide 19 L BUN 39 H Creatinine 4.2 H Glucose POC Glucose Lactic Acid Calcium 8.1 L Phosphorus Alkaline Phosphatase Ammonia NT-Pro-B Natriuret Pep Total Protein Albumin Urine WBC (Auto) Urine Creatinine Urine Total Protein 04/17/18 06:10 WBC MCV RDW Lymph % (Auto) Lymph # Seg Neutrophils % POC ABG pH POC ABG pCO2 POC ABG pO2 Sodium Carbon Dioxide BUN Creatinine Glucose 143 H POC Glucose Lactic Acid Calcium Phosphorus Alkaline Phosphatase Ammonia NT-Pro-B Natriuret Pep Total Protein Albumin Urine WBC (Auto) Urine Creatinine Urine Total Protein
[2018-04-17] MEDS: KEPPRA PO SCH ×2 (09:54→22:33)
[2018-04-17] MEDS: ELIQUIS FEEDTUBE SCH ×2 (10:01→22:34)
[2018-04-17] MEDS: SODIUM CHLORIDE FLUSH SYRINGE 10 ML IV SCH (10:02)
[2018-04-17] MEDS: PEPCID PO SCH (10:02)
[2018-04-17] MEDS: LOPRESSOR PO SCH (10:03)
[2018-04-17 10:17] LABS: Calcium 8.3 mg/dL (8.4-10.2)
--- NOTE | 2018-04-17 10:54 | Progress Note ---
Assessment and Plan Status post seizure Respiratory failure currently intubated on mechanical ventilator Hx of coronary artery disease Ischemic cardiomyopathy Paroxysmal atrial fibrillation on oral anticoagulation with low dose Eliquis. RBBB, chronic Hypertension Chronic kidney disease Non-specific troponin in the setting of renal failure Echocardiogram 02/2018 reports a left ventricular ejection fraction 20-25%. There was moderate tricuspid regurgitation and pulmonary artery systolic pressure is mildly elevated at 40. Stress test 05/2017: Large fixed lateral wall defect Recommendations: Continue medical management for ischemic cardiomyopathy and coronary artery disease as tolerated. Conservative cardiac management. Subjective Date of service: 04/17/18 Principal diagnosis: Acute respiratory failure, secondary to seizure episode. Chronic kidney di Interval history: Patient remains sedated, intubated on mechanical ventilation. No reported cardiac events overnight. Objective Vital Signs Temp Pulse Pulse Resp BP Pulse Ox 04/17/18 10:03 84 155/79 04/17/18 10:00 85 25 H 155/85 99 04/17/18 09:00 88 33 H 150/84 99 04/17/18 08:54 87 30 H 150/84 98 04/17/18 08:00 89 16 140/104 96 04/17/18 07:54 100.3 F H 04/17/18 07:00 87 32 H 161/83 99 04/17/18 06:00 81 24 161/79 95 04/17/18 05:55 79 25 H 94 04/17/18 05:42 79 161/72 04/17/18 05:00 87 30 H 162/91 100 04/17/18 04:35 82 161/88 98 04/17/18 04:00 86 22 161/88 99 04/17/18 03:10 91 H 22 94 04/17/18 03:01 91 H 18 167/89 94 04/17/18 02:33 72 22 94 04/17/18 02:00 87 32 H 150/79 96 04/17/18 01:00 82 27 H 157/85 97 04/17/18 00:00 98.8 F 76 24 141/76 100 04/16/18 23:55 22 94 04/16/18 23:03 79 24 150/83 93 04/16/18 23:00 78 20 139/81 94 04/16/18 22:20 72 22 94 04/16/18 22:00 72 20 143/118 99 04/16/18 21:58 75 132/75 04/16/18 21:00 76 18 141/80 100 04/16/18 20:00 98.6 F 76 16 152/77 94 04/16/18 19:13 72 04/16/18 19:01 76 16 140/75 94 04/16/18 18:00 78 25 H 146/71 96 04/16/18 17:00 73 13 141/79 100 04/16/18 16:18 73 140/72 99 04/16/18 16:00 100 F H 73 22 140/72 100 04/16/18 15:00 72 19 142/78 99 04/16/18 14:00 77 14 131/83 91 04/16/18 13:00 74 17 145/74 98 04/16/18 12:45 74 145/74 98 04/16/18 12:00 99.7 F H 73 71 24 145/76 94 04/16/18 11:00 74 18 133/76 98 - Physical Examination General: Other (intubated on the vent) Neck: Positive: trachea midline Cardiac: Positive: Reg Rate and Rhythm Extremities: Absent: edema - Labs and Meds Comprehensive Metabolic Panel 04/17/18 04/17/18 Range/Units 06:10 09:45 Sodium 140 (137-145) mmol/L Potassium 4.3 (3.6-5.0) mmol/L Chloride 104.9 (98-107) mmol/L Carbon Dioxide 17 L (22-30) mmol/L BUN 47 H (7-17) mg/dL Creatinine 4.4 H (0.7-1.2) mg/dL Glucose 143 H 127 H (65-100) mg/dL Calcium 8.3 L (8.4-10.2) mg/dL
[2018-04-17] MEDS ORDERED: LASIX IV ONE ×2 (11:00→15:30)
[2018-04-17] MEDS: D5W 1,000 ML IV SCH (12:29)
--- NOTE | 2018-04-17 13:36 | Progress Note ---
Assessment and Plan Assessment and plan: 42-year-old woman who presented after a witnessed seizure. She was intubated, admitted to the ICU. pmh; HTN, Systolic CHF(EF 20%), CVA, DM, Seizure Disorder, COPD, Pulmonary HTN, CAD S/P Stent Placement Status epilepticus -Continue AED, dose was increased, neurology consult Acute respiratory failure secondary to seizure episode, on MV greater than 96 hours -Management per pulmonology BLAS on CKD -Had received dialysis previously -Nephrology input appreciated, responding to loop diuretics. No further indication for dialysis -Suspect that she is near her baseline creatinine Right bundle branch block, chronic, paroxysmal atrial fibrillation, systolic CHF EF 20% Hypercoagulable state -Cardiology input appreciated, continue conservative management -[facility] Critical care time 35 minutes History Interval history: No seizures no fevers no agitation, no vomiting Hospitalist Physical - Physical exam Narrative exam: General.: Appears well, no distress, nontoxic HEENT: Moist mucous membranes, extraocular muscles intact, no lymphadenopathy Neck: supple Cardiac: S1-S2 heard Lungs: clear to auscultation bilaterally Abdomen: soft , nontender, nondistended, bowel sounds positive Extremities: no edema clubbing or cyanosis Skin: no rash or lesions Neurologic: Intubated, drowsy - Constitutional Vitals: Temp Pulse Resp BP Pulse Ox 100.7 F H 79 28 H 155/87 98 04/17/18 11:55 04/17/18 12:32 04/17/18 12:32 04/17/18 12:32 04/17/18 12:32 General appearance: Present: severe distress Results - Labs CBC & Chem 7: 04/16/18 03:51 04/17/18 09:45 Labs: Laboratory Last Values WBC 10.1 K/mm3 (4.5-11.0) 04/16/18 03:51 RBC 3.72 M/mm3 (3.65-5.03) 04/16/18 03:51 Hgb 11.8 gm/dl (10.1-14.3) 04/16/18 03:51 Hct 36.4 % (30.3-42.9) 04/16/18 03:51 MCV 98 fl (79-97) H 04/16/18 03:51 MCH 32 pg (28-32) 04/16/18 03:51 MCHC 33 % (30-34) 04/16/18 03:51 RDW 15.5 % (13.2-15.2) H 04/16/18 03:51 Plt Count 156 K/mm3 (140-440) 04/16/18 03:51 Lymph % (Auto) 9.3 % (13.4-35.0) L 04/14/18 08:01 Rogers % (Auto) 5.6 % (0.0-7.3) 04/14/18 08:01 Eos % (Auto) 0.7 % (0.0-4.3) 04/14/18 08:01 Baso % (Auto) 0.6 % (0.0-1.8) 04/14/18 08:01 Lymph # 0.7 K/mm3 (1.2-5.4) L 04/14/18 08:01 Rogers # 0.4 K/mm3 (0.0-0.8) 04/14/18 08:01 Eos # 0.1 K/mm3 (0.0-0.4) 04/14/18 08:01 Baso # 0.0 K/mm3 (0.0-0.1) 04/14/18 08:01 Seg Neutrophils % 83.8 % (40.0-70.0) H 04/14/18 08:01 Seg Neutrophils # 6.4 K/mm3 (1.8-7.7) 04/14/18 08:01 PT 14.3 Sec. (12.2-14.9) 04/13/18 13:41 INR 1.07 (0.87-1.13) 04/13/18 13:41 APTT 28.9 Sec. (24.2-36.6) 04/13/18 13:41 Thrombin Time 17.3 Sec. (15.1-19.6) 04/13/18 13:41 POC ABG pH 7.371 (7.35-7.45) 04/17/18 04:33 POC ABG pCO2 28.0 (35-45) L 04/17/18 04:33 POC ABG pO2 106 (80-105) H 04/17/18 04:33 POC ABG HCO3 16.2 04/17/18 04:33 POC ABG Total CO2 17 04/17/18 04:33 POC ABG O2 Sat 98 01/09/19 04:33 POC ABG Base Excess -9 04/17/18 04:33 FiO2 30 % 04/17/18 04:33 Sodium 140 mmol/L (137-145) 04/17/18 09:45 Potassium 4.3 mmol/L (3.6-5.0) 04/17/18 09:45 Chloride 104.9 mmol/L (98-107) 04/17/18 09:45 Carbon Dioxide 17 mmol/L (22-30) L 04/17/18 09:45 Anion Gap 22 mmol/L 04/17/18 09:45 BUN 47 mg/dL (7-17) H 04/17/18 09:45 Creatinine 4.4 mg/dL (0.7-1.2) H 04/17/18 09:45 Estimated GFR 11 ml/min 04/17/18 09:45 BUN/Creatinine Ratio 11 % 04/17/18 09:45 Glucose 127 mg/dL (65-100) H 04/17/18 09:45 POC Glucose 101 (70-105) 04/17/18 11:22 Lactic Acid 1.10 mmol/L (0.7-2.0) 04/13/18 16:23 Calcium 8.3 mg/dL (8.4-10.2) L 04/17/18 09:45 Phosphorus 4.90 mg/dL (2.5-4.5) H 04/14/18 08:01 Magnesium 1.90 mg/dL (1.7-2.3) 04/14/18 08:01 Total Bilirubin 0.60 mg/dL (0.1-1.2) 04/14/18 08:01 Direct Bilirubin 0.2 mg/dL (0-0.2) 04/13/18 13:59 Indirect Bilirubin 0.3 mg/dL 04/13/18 13:59 AST 14 units/L (5-40) 04/14/18 08:01 ALT 7 units/L (7-56) 04/14/18 08:01 Alkaline Phosphatase 106 units/L (35-129) 04/14/18 08:01 Ammonia 47.0 umol/L (25-60) 04/16/18 11:17 Total Creatine Kinase 92 units/L (30-135) 04/13/18 13:59 CK-MB (CK-2) 3.7 ng/mL (0.0-4.0) 04/13/18 13:59 CK-MB (CK-2) Rel Index 4.0 (0-4) 04/13/18 13:59 Troponin T 0.010 ng/mL (0.00-0.029) 04/13/18 13:59 NT-Pro-B Natriuret Pep 49234 pg/mL (0-450) H 04/13/18 13:59 Total Protein 6.0 g/dL (6.3-8.2) L 04/14/18 08:01 Albumin 2.6 g/dL (3.9-5) L 04/14/18 08:01 Albumin/Globulin Ratio 0.8 % 04/14/18 08:01 Lipase 44 units/L (13-60) 04/13/18 13:59 Urine Color Diane (Yellow) 04/13/18 14:26 Urine Turbidity Cloudy (Clear) 04/13/18 14:26 Urine pH 5.0 (5.0-7.0) 04/13/18 14:26 Ur Specific [place] 1.017 (1.003-1.030) 04/13/18 14:26 Urine Protein >500 mg/dL (Negative) 04/13/18 14:26 Urine Glucose (UA) >=500 mg/dL (Negative) 04/13/18 14:26 Urine Ketones Neg mg/dL (Negative) 04/13/18 14:26 Urine Blood Neg (Negative) 04/13/18 14:26 Urine Nitrite Neg (Negative) 04/13/18 14:26 Urine Bilirubin Neg (Negative) 04/13/18 14:26 Urine Urobilinogen < 2.0 mg/dL (<2.0) 04/13/18 14:26 Ur Leukocyte Esterase Neg (Negative) 04/13/18 14:26 Urine WBC (Auto) 22.0 /HPF (0.0-6.0) H 04/13/18 14:26 Urine RBC (Auto) 17.0 /HPF (0.0-6.0) 04/13/18 14:26 U Epithel Cells (Auto) 3.0 /HPF (0-13.0) 04/13/18 14:26 Urine Bacteria (Auto) 4+ /HPF (Negative) 04/13/18 14:26 Urine Mucus Few /HPF 04/13/18 14:26 Urine Yeast (Budding) 3+ /HPF 04/13/18 14:26 Urine Eosinophils 7% (None Seen) 04/14/18 11:23 Urine Creatinine 85.5 mg/dL (0.1-20.0) H 04/14/18 11:23 Protein/Creatinin Ratio 1.78 04/14/18 11:23 Urine Sodium 82 mmol/L 04/14/18 11:23 Fraction Sodium Excret 2.3 04/14/18 11:23 Urine Total Protein 152 mg/dL (5-11.8) H 04/14/18 11:23 Urine Opiates Screen Presumptive negative 04/13/18 14:26 Urine Methadone Screen Presumptive negative 04/13/18 14:26 Ur Barbiturates Screen Presumptive negative 04/13/18 14:26 Ur Phencyclidine Scrn Presumptive negative 04/13/18 14:26 Ur Amphetamines Screen Presumptive negative 04/13/18 14:26 U Benzodiazepines Scrn Presumptive negative 04/13/18 14:26 Urine Cocaine Screen Presumptive negative 04/13/18 14:26 U Marijuana (THC) Screen Presumptive negative 04/13/18 14:26 Drugs of Abuse Note Disclamer 04/13/18 14:26 Hepatitis A IgM Ab Non-reactive (NonReactive) 04/14/18 11:56 Hep Bs Antigen Non-reactive (Negative) 04/14/18 11:56 Hep B Core IgM Ab Non-reactive (NonReactive) 04/14/18 11:56 Hepatitis C Antibody Non-reactive (NonReactive) 04/14/18 11:56 Nutrition/Malnutrition Assess - Dietary Evaluation Nutrition/Malnutrition Findings: Nutrition Notes Start: 04/14/18 09:47 Freq: Status: Active Protocol: Document 04/16/18 13:40 KH (Rec: 04/16/18 14:40 BRYAN [email or web address]) Co-Sign 04/16/18 13:40 LP Nutrition Notes Initial or Follow up Reassessment Current Diagnosis CKD(stage I-IV) COPD Diabetes Hypertension Heart Failure Respiratory Failure Stroke Other Pertinent Diagnosis Hx of seizures, Wounds on R and L LE, fungal rash on groin and ischial fold Current Diet NPO Labs/Tests BUN: 39 Cr: 4.2 Pertinent Medications Propofol @ 3.062 ml/hr (81 kcals) Height 5 ft 8 in Weight 102.058 kg [place] Body Weight (lbs) 140.0 BMI 34.2 Weight Status Obese Subjective/Other Information Pt f/u for TF consult and extubation Percent of energy/protein needs met: 0%/0% Burn Absent Trauma Absent #2 Nutrition Diagnosis Increased nutrient needs ( specify in comment below) Comments: Protein Etiology Wound healing As Evidenced by Signs and Symptoms Presence of wounds on R and L LE Diagnosis Progress(for reassessment Continues documentation) #1 Nutrition Diagnosis Inadequate oral intake Diagnosis Progress(for reassessment Continues documentation) Is patient on ventilator? Yes Is Patient Ambulatory and/or Out of Bed No REE-([facility]-confined to bed) 2071.800 Kcal/Kg value to use for calculation 16 Approximate Energy Requirements Using 1633 kcal/Kg Calculation Used for Recommendations Kcal/kg Additional Notes Adj BW: 82.8kg Protein needs are 166g (2g/kg AdjBW) Fluid needs are 1ml/kcal or per MD Nutrition Intervention Nutrition Support: Vital High Protein at 70ml/hr with water flush of 50ml q4h Kcal 1,680 Protein (gm) 147 Fluid (mL) 1,704 Goal #1 TF initiation Goal #2 TF tolerance Anticipated Discharge Needs: Unable to determine at this time Follow-Up By: 04/18/18 Additional Comments F/U for TF initiation and TF tolerance
[2018-04-17] MEDS: APRESOLINE IV PRN (18:50)
--- NOTE | 2018-04-18 00:10 | Consultation ---
NEUROLOGICAL CONSULTATION REASON FOR CONSULTATION: Seizure. HISTORY OF PRESENT ILLNESS: History of present illness was obtained from the record, the patient is unresponsive, cannot give any history. No family members. This patient is a 42-year-old, who apparently developed severe chest pain and the Emergency facility was called. She was brought through the ambulance and he apparently was noted to have a deviation of the gaze to the right. Could not answer questions and she was altered. Then, en route to the hospital, she had a seizure described to be tonic-clonic, was given Ativan. She has to be intubated to protect the airway. In , has a febrile illness, congestive failure, pulmonary infection. Also has coronary artery disease, chronic kidney disease, etc. I was consulted because of the seizure. HOME MEDICATIONS: The patient on insulin. Also taking aspirin, Eliquis, atorvastatin, Lasix, metoprolol, potassium, hydralazine and levetiracetam. PAST MEDICAL HISTORY: The patient has hypertension, had a stroke, nature unclear; had myocardial infarction, congestive heart failure, diabetes. Seizure apparently started 4 months ago. Has COPD, has pulmonary hypertension, dilated right atrium. Stage IV renal failure. PAST SURGICAL HISTORY: The patient has bilateral cataract surgery, laser surgery for diabetic retinopathy. SOCIAL HISTORY: The patient apparently is a heavy tobacco smoker. No drug use. PHYSICAL EXAMINATION: GENERAL: Revealed a chronically and acutely ill female, who is currently intubated. VITAL SIGNS: She has a temperature of 100.7 degrees Fahrenheit. Pulse rate 79, respirations 28, blood pressure 155/87, pulse oximetry 98. HEAD, EYES, EARS, NOSE, MOUTH AND THROAT: The patient is intubated, also has NG tube. No intracranial or intraorbital bruit. NECK: Supple. HEART: Showed some irregularity. Loud cardiac sounds. LUNGS: Harsh breath sounds. ABDOMEN: Obese. SKIN: Showed some irregular erythema. Some swelling. NEUROLOGIC: The patient is intubated, apparently not sedated. Pupils are barely reactive to light, corneals decreased. She has some right gaze preference when she was moving, but not constant. No spontaneous movement of the upper and lower extremities. Reflexes are hypoactive. No Babinski. INITIAL CLINICAL IMPRESSION: 1. Neurologic: This patient appeared to have a seizure. Mostly this is secondary to all the medical problems. I suspect the patient has cardiac issues, hypertension, congestive heart failure. Renal failure. The patient has diabetes also. 2. The patient also in acute respiratory failure. The patient is very sick. Therefore, we have to rule out; however, a stroke also. The patient has a right-sided gaze preference. PLAN: 1. Intensive medical management, which is now undergoing. 2. Agree with anti-seizure. Obtain an EEG. Adequate oxygenation and cardiopulmonary support. Prognosis looks very, very poor. A 60 minutes involved in the history and physical examination, more than 50% in the evaluation of care. JOB# [id number] MARIANNA/GOVIND
[2018-04-18] MEDS: D50W (25GM) Syringe IV PRN (00:15)
[2018-04-18] MEDS: SODIUM CHLORIDE FLUSH SYRINGE 10 ML IV SCH ×3 (00:15→22:00)
--- NOTE | 2018-04-18 04:43 | XRay Report ---
FINAL REPORT PROCEDURE: XR CHEST 1V AP TECHNIQUE: Chest radiograph anteroposterior view. CPT 70693 HISTORY: follow up respiratory failure COMPARISON: 12/01/2017 FINDINGS: Heart: Heart is enlarged Mediastinum/Vessels: Normal. Lungs/Pleural space: There are bilateral perihilar patchy opacity suggesting infiltrates. There are n o effusions or pneumothoraces.. Bony thorax: No acute osseous abnormality. Life support devices: The endotracheal tube is the mid trachea. The NG tube is below the diaphragm.. IMPRESSION: Heart is enlarged There are bilateral perihilar patchy opacity suggesting infiltrates. There are no effusions or pneumo thoraces.. The endotracheal tube is the mid trachea. The NG tube is below the diaphragm.. .
[2018-04-18] MEDS: APRESOLINE PO SCH ×2 (06:10→14:00)
--- NOTE | 2018-04-18 08:38 | Progress Note ---
Assessment and Plan impression * BLAS on Chronic kidney disease stage 4 * Respiratory failure secondary to pulmonary infiltrates * Hypertension * Seizure disorder * Pulmonary hypertension * COPD * Metabolic Acidosis * History of CVA Recommendations * Patient baseline serum creatinine appears to be in the 3-4 range * no urgent indication for dialysis at this time * Continue loop diuretics as needed * add sodium bicarbonate * Avoid nephrotoxins * Monitor fluid status and electrolytes closely * Renal ultrasound showing bilateral nonobstructing stones * Urine shows 4+ dipstick protein as well as pyuria and microhematuria. Follow- up results of vasculitis workup Subjective Date of service: 04/18/18 Principal diagnosis: Acute respiratory failure, secondary to seizure episode. Chronic kidney di Interval history: resting well in bed today Objective - Exam Narrative Exam: General appearance: well-developed, well-nourished, appears stated age, intubated EENT: PERRL, mucous membranes moist Neck: no JVD, no thyromegaly Respiratory: Present: Clear to Ascultation Cardiology: regular, normal heart rate, S1S2, no murmurs Gastrointestinal: normal, normoactive bowel sounds Integumentary: other (no edema) - Vital Signs Vital signs: Vital Signs - 12hr 04/17/18 04/17/18 04/17/18 21:00 21:59 22:00 Temperature Pulse Rate 103 H 103 H 93 H Pulse Rate [ Dorsalis Pedis] Pulse Rate [ From Monitor] Pulse Rate [ Left Radial] Pulse Rate [ Radial] Pulse Rate [ Right Dorsalis Pedis] Respiratory 38 H 18 Rate Blood Pressure 189/117 136/79 O2 Sat by Pulse 97 96 Oximetry 04/17/18 04/17/18 04/17/18 22:34 23:00 23:50 Temperature Pulse Rate 91 H 90 Pulse Rate [ 89 Dorsalis Pedis] Pulse Rate [ 89 From Monitor] Pulse Rate [ 89 Left Radial] Pulse Rate [ 89 Radial] Pulse Rate [ 89 Right Dorsalis Pedis] Respiratory 22 44 H Rate Blood Pressure 144/90 128/77 O2 Sat by Pulse 94 87 Oximetry 04/17/18 04/17/18 04/18/18 23:54 23:57 00:00 Temperature 99.9 F H Pulse Rate 88 90 94 H Pulse Rate [ Dorsalis Pedis] Pulse Rate [ From Monitor] Pulse Rate [ Left Radial] Pulse Rate [ Radial] Pulse Rate [ Right Dorsalis Pedis] Respiratory 21 26 H Rate Blood Pressure 121/67 124/69 124/69 O2 Sat by Pulse 94 93 91 Oximetry 04/18/18 04/18/18 04/18/18 00:14 01:00 02:00 Temperature Pulse Rate 87 96 H 88 Pulse Rate [ Dorsalis Pedis] Pulse Rate [ From Monitor] Pulse Rate [ Left Radial] Pulse Rate [ Radial] Pulse Rate [ Right Dorsalis Pedis] Respiratory 20 27 H 22 Rate Blood Pressure 124/69 121/71 130/76 O2 Sat by Pulse 93 96 95 Oximetry 04/18/18 04/18/18 04/18/18 03:00 03:55 04:00 Temperature 99.8 F H Pulse Rate 102 H 86 86 Pulse Rate [ 84 Dorsalis Pedis] Pulse Rate [ 84 From Monitor] Pulse Rate [ 84 Left Radial] Pulse Rate [ 84 Radial] Pulse Rate [ 84 Right Dorsalis Pedis] Respiratory 20 22 Rate Blood Pressure 132/82 134/78 132/72 O2 Sat by Pulse 99 99 99 Oximetry 04/18/18 04/18/18 04/18/18 05:00 06:00 06:10 Temperature Pulse Rate 85 105 H 98 H Pulse Rate [ Dorsalis Pedis] Pulse Rate [ From Monitor] Pulse Rate [ Left Radial] Pulse Rate [ Radial] Pulse Rate [ Right Dorsalis Pedis] Respiratory 23 15 Rate Blood Pressure 134/73 130/68 126/84 O2 Sat by Pulse 99 97 Oximetry 04/18/18 07:00 Temperature Pulse Rate 81 Pulse Rate [ Dorsalis Pedis] Pulse Rate [ From Monitor] Pulse Rate [ Left Radial] Pulse Rate [ Radial] Pulse Rate [ Right Dorsalis Pedis] Respiratory 28 H Rate Blood Pressure 114/68 O2 Sat by Pulse 98 Oximetry - Lab 04/16/18 03:51 04/18/18 04:30 Most recent lab results Calcium 8.0 mg/dL (8.4-10.2) L 04/18/18 04:30 Phosphorus 4.90 mg/dL (2.5-4.5) H 04/14/18 08:01 Magnesium 1.90 mg/dL (1.7-2.3) 04/14/18 08:01 Urine Creatinine 85.5 mg/dL (0.1-20.0) H 04/14/18 11:23 Urine Sodium 82 mmol/L 01/06/19 11:23 Urine Total Protein 152 mg/dL (5-11.8) H 04/14/18 11:23 Medications & Allergies - Medications Allergies/Adverse Reactions: Allergies No Known Allergies Allergy (Verified 04/17/18 10:03) Home Medications: Home Medications Medication Instructions Recorded Confirmed Last Taken Type Lispro Insulin [Humalog] 15 unit SQ BID 07/17/17 02/17/18 02/16/18 History Aspirin EC [Aspirin Enteric Coated 81 mg PO QDAY #30 tablet 07/22/17 02/17/18 02/17/18 Rx TAB] 81mg Insulin NPH, Human [NovoLIN N] 15 unit SUB-Q BID 12/02/17 12/02/17 12/01/17 History Lantus 45 units SUB-Q QHS 12/02/17 12/02/17 11/30/17 History Labetalol [Normodyne TAB] 200 mg PO BID #60 tablet 12/04/17 Unknown Rx Sulfamethoxazole/Trimethoprim 1 each PO BID #14 tablet 12/04/17 Unknown Rx [Bactrim DS TAB] amLODIPine [Norvasc] 10 mg PO QDAY #30 tablet 12/04/17 Unknown Rx Apixaban [Eliquis] 2.5 mg PO BID 60 Days tablet 02/22/18 Unknown Rx AtorvaSTATin [Lipitor] 20 mg PO QHS #30 tablet 02/22/18 Unknown Rx Furosemide [Lasix TAB] 80 mg PO 0600,1800 #30 tablet 02/22/18 Unknown Rx Insulin Glargine,Hum.rec.anlog 20 unit SQ QHS #30 insuln.pen 02/22/18 Unknown Rx [Lantus Solostar] Lisinopril [Zestril TAB] 20 mg PO QDAY #30 tablet 02/22/18 Unknown Rx Lispro Insulin [Humalog] 0 unit SUB-Q ACHS units 02/22/18 Unknown Rx Metoprolol Xl [Metoprolol 25 mg PO QDAY #30 tablet 02/22/18 Unknown Rx SUCCINATE ER TAB] Potassium Chloride [K-Dur] 20 meq PO Q12HR #60 tablet 02/22/18 Unknown Rx hydrALAZINE [Apresoline TAB] 25 mg PO TID #90 tablet 02/22/18 Unknown Rx levETIRAcetam [Keppra TAB] 500 mg PO BID #90 tablet 02/22/18 Unknown Rx oxyCODONE /ACETAMINOPHEN [Percocet 1 tab PO Q6H PRN #30 tablet 02/22/18 Unknown Rx 5/325 mg] Active Medications: Generic Name Dose Route Start Last Admin Trade Name Freq PRN Reason Stop Dose Admin Albuterol 2.5 mg 04/13/18 14:57 Proventil IH Q3H PRN Shortness Of Breath Apixaban 2.5 mg 04/14/18 18:00 04/17/18 22:34 Eliquis FEEDTUBE 2.5 mg Q12HR CECILE Administration Protocol Dextrose 50 ml 04/14/18 19:05 04/18/18 00:15 D50w (25gm) Syringe IV 50 ml PRN PRN Administration Hypoglycemia Famotidine 20 mg 04/15/18 10:00 04/17/18 10:02 Pepcid PO 20 mg DAILY CECILE Administration Hydralazine HCl 10 mg 04/14/18 16:15 04/17/18 18:50 Apresoline IV 10 mg Q4HR PRN Administration SBP >150 or DBP >90 Hydralazine HCl 25 mg 04/14/18 17:00 04/18/18 06:10 Apresoline PO 25 mg Q8HR CECILE Administration Hydrophilic Ointment 1 applic 04/13/18 13:43 Vaseline Lip Therapy TP Q2HR PRN Dry Lips Propofol 1,000 mg in 100 mls @ 3.062 mls/hr 04/13/18 16:00 04/14/18 16:50 Diprivan 10 Mg/Ml IV 0 mcg/kg/min TITR CECILE 0 mls/hr Titration Protocol 5 MCG/KG/MIN Dextrose 1,000 mls @ 42 mls/hr 04/16/18 11:00 04/17/18 12:29 D5w IV 42 mls/hr DIRECT CECILE Administration Levetiracetam 750 mg 04/15/18 11:00 04/17/18 22:33 Keppra PO 750 mg BID CECILE Administration Lorazepam 2 mg 04/13/18 13:43 04/15/18 23:19 Ativan IV 2 mg Q10MIN PRN Administration Agitation Metoprolol Tartrate 25 mg 04/14/18 11:00 04/17/18 10:03 Lopressor PO 25 mg QDAY CECILE Administration Multi-Ingred Cream/Lotion/Oil/Oint 1 applic 04/13/18 13:43 Artificial Tears Ophth Oint OU Q4HR PRN Dry Eye(s) Sodium Bicarbonate 1,300 mg 04/18/18 10:00 Sodium Bicarbonate PO BID CECILE Sodium Chloride 10 ml 04/13/18 22:00 04/18/18 00:15 Sodium Chloride Flush Syringe 10 Ml IV 10 ml BID CECILE Administration Sodium Chloride 10 ml 04/13/18 14:57 04/17/18 05:42 Sodium Chloride Flush Syringe 10 Ml IV 10 ml PRN PRN Administration LINE FLUSH
[2018-04-18] MEDS ORDERED: SIMPLE SYRUP FEEDTUBE PRN ×2 (08:58)
[2018-04-18] MEDS ORDERED: PANCREAZE DR 10,500 UNIT FEEDTUBE PRN (08:58)
[2018-04-18] MEDS ORDERED: SODIUM BICARBONATE FEEDTUBE PRN (08:58)
[2018-04-18] MEDS ORDERED: POTASSIUM CHLORIDE FEEDTUBE ONE (11:00)
[2018-04-18] MEDS ORDERED: ROCEPHIN/NS 2 GM/100 ML 2 GM/100 ML BAG IV SCH (11:00)
[2018-04-18] MEDS: LOPRESSOR PO SCH (11:03)
[2018-04-18] MEDS: KEPPRA PO SCH (11:03)
[2018-04-18] MEDS: SODIUM BICARBONATE PO SCH (11:04)
[2018-04-18] MEDS: PEPCID PO SCH (11:04)
--- NOTE | 2018-04-18 11:17 | Progress Note ---
Assessment and Plan Acute respiratory failure, secondary to seizure episode. Pneumonia. CXR suggestive >> CHF,fever. Will order Chest CT for further review. Start ABx, ID consult Chronic kidney disease. Medication noncompliance COPD per notes Recommendations Continue diuresis. Ammonia levels normal Sedation vacation. Initiate SBP as tolerated Continue antiseizure medications ID consult DVT prophylaxis PPI prophylaxis No family available for case discussion Critical care time was 31 minutes of [id number] evaluation and coordination of care Subjective Date of service: 04/18/18 Principal diagnosis: Acute respiratory failure, secondary to seizure episode. Chronic kidney di Interval history: No SOB Objective Vital Signs - 12hr 04/17/18 04/17/18 04/17/18 23:50 23:54 23:57 Temperature Pulse Rate 88 90 Pulse Rate [ 89 Dorsalis Pedis] Pulse Rate [ 89 From Monitor] Pulse Rate [ 89 Left Radial] Pulse Rate [ 89 Radial] Pulse Rate [ 89 Right Dorsalis Pedis] Respiratory 44 H 21 Rate Blood Pressure 121/67 124/69 O2 Sat by Pulse 87 94 93 Oximetry 04/18/18 04/18/18 04/18/18 00:00 00:14 01:00 Temperature 99.9 F H Pulse Rate 94 H 87 96 H Pulse Rate [ Dorsalis Pedis] Pulse Rate [ From Monitor] Pulse Rate [ Left Radial] Pulse Rate [ Radial] Pulse Rate [ Right Dorsalis Pedis] Respiratory 26 H 20 27 H Rate Blood Pressure 124/69 124/69 121/71 O2 Sat by Pulse 91 93 96 Oximetry 04/18/18 04/18/18 04/18/18 02:00 03:00 03:55 Temperature Pulse Rate 88 102 H 86 Pulse Rate [ Dorsalis Pedis] Pulse Rate [ From Monitor] Pulse Rate [ Left Radial] Pulse Rate [ Radial] Pulse Rate [ Right Dorsalis Pedis] Respiratory 22 20 Rate Blood Pressure 130/76 132/82 134/78 O2 Sat by Pulse 95 99 99 Oximetry 04/18/18 04/18/18 04/18/18 04:00 05:00 06:00 Temperature 99.8 F H Pulse Rate 86 85 105 H Pulse Rate [ 84 Dorsalis Pedis] Pulse Rate [ 84 From Monitor] Pulse Rate [ 84 Left Radial] Pulse Rate [ 84 Radial] Pulse Rate [ 84 Right Dorsalis Pedis] Respiratory 22 23 15 Rate Blood Pressure 132/72 134/73 130/68 O2 Sat by Pulse 99 99 97 Oximetry 04/18/18 04/18/18 04/18/18 06:10 07:00 08:00 Temperature 97.8 F Pulse Rate 98 H 81 81 Pulse Rate [ Dorsalis Pedis] Pulse Rate [ 94 H From Monitor] Pulse Rate [ Left Radial] Pulse Rate [ Radial] Pulse Rate [ Right Dorsalis Pedis] Respiratory 28 H 22 Rate Blood Pressure 126/84 114/68 131/69 O2 Sat by Pulse 98 99 Oximetry 04/18/18 04/18/18 04/18/18 08:23 09:00 10:00 Temperature Pulse Rate 81 81 93 H Pulse Rate [ Dorsalis Pedis] Pulse Rate [ From Monitor] Pulse Rate [ Left Radial] Pulse Rate [ Radial] Pulse Rate [ Right Dorsalis Pedis] Respiratory 28 H 18 21 Rate Blood Pressure 114/68 133/71 136/76 O2 Sat by Pulse 98 91 100 Oximetry 04/18/18 04/18/18 10:47 11:03 Temperature Pulse Rate 93 H 94 H Pulse Rate [ Dorsalis Pedis] Pulse Rate [ From Monitor] Pulse Rate [ Left Radial] Pulse Rate [ Radial] Pulse Rate [ Right Dorsalis Pedis] Respiratory Rate Blood Pressure 136/76 135/73 O2 Sat by Pulse 100 Oximetry Constitutional: no acute distress, asleep ENT: other (orally intubated and sedated) Neck: no JVD Effort: normal Ascultation: Bilateral: clear Percussion: Bilateral: not dull Cardiovascular: regular rate and rhythm Gastrointestinal: normoactive bowel sounds, soft, non-tender Extremities: no edema, pink and warm, pulses normal Neurologic: unable to assess, other (RASS -1) CBC and BMP: 04/16/18 03:51 04/18/18 04:30 ABG, PT/INR, D-dimer: ABG POC ABG pH 7.308 (7.35-7.45) L 04/17/18 20:40 POC ABG pCO2 31.3 (35-45) L 04/17/18 20:40 POC ABG pO2 61 (80-105) L 04/17/18 20:40 POC ABG HCO3 15.7 04/17/18 20:40 POC ABG Total CO2 17 04/17/18 20:40 POC ABG O2 Sat 89 04/17/18 20:40 PT/INR, D-dimer PT 14.3 Sec. (12.2-14.9) 04/13/18 13:41 INR 1.07 (0.87-1.13) 04/13/18 13:41 Abnormal lab findings: Abnormal Labs 04/13/18 04/13/18 04/13/18 13:41 13:59 13:59 WBC MCV 103 H RDW 16.8 H Lymph % (Auto) Lymph # Seg Neutrophils % 73.1 H POC ABG pH POC ABG pCO2 POC ABG pO2 Sodium 136 L Potassium Carbon Dioxide 13 L BUN 30 H Creatinine 4.0 H Glucose 210 H POC Glucose Lactic Acid 3.10 H* Calcium 8.1 L Phosphorus Alkaline Phosphatase 130 H Ammonia NT-Pro-B Natriuret Pep 39357 H Total Protein Albumin 2.9 L Urine WBC (Auto) Urine Creatinine Urine Total Protein 04/13/18 04/13/18 04/13/18 13:59 14:07 14:26 WBC MCV RDW Lymph % (Auto) Lymph # Seg Neutrophils % POC ABG pH 7.262 L POC ABG pCO2 32.8 L POC ABG pO2 Sodium Potassium Carbon Dioxide BUN Creatinine Glucose POC Glucose Lactic Acid Calcium Phosphorus Alkaline Phosphatase Ammonia 65.0 H NT-Pro-B Natriuret Pep Total Protein Albumin Urine WBC (Auto) 22.0 H Urine Creatinine Urine Total Protein 04/13/18 04/14/18 04/14/18 14:30 05:06 08:01 WBC MCV 98 H RDW 15.9 H Lymph % (Auto) 9.3 L Lymph # 0.7 L Seg Neutrophils % 83.8 H POC ABG pH POC ABG pCO2 31.8 L POC ABG pO2 127 H Sodium Potassium Carbon Dioxide BUN Creatinine Glucose POC Glucose 181 H Lactic Acid Calcium Phosphorus Alkaline Phosphatase Ammonia NT-Pro-B Natriuret Pep Total Protein Albumin Urine WBC (Auto) Urine Creatinine Urine Total Protein 04/14/18 04/14/18 04/14/18 08:01 11:23 11:23 WBC MCV RDW Lymph % (Auto) Lymph # Seg Neutrophils % POC ABG pH POC ABG pCO2 POC ABG pO2 Sodium Potassium Carbon Dioxide 18 L BUN 30 H Creatinine 4.1 H 3.9 H Glucose POC Glucose Lactic Acid Calcium 8.1 L Phosphorus 4.90 H Alkaline Phosphatase Ammonia NT-Pro-B Natriuret Pep Total Protein 6.0 L Albumin 2.6 L Urine WBC (Auto) Urine Creatinine 85.5 H Urine Total Protein 152 H 04/14/18 04/14/18 04/15/18 19:04 23:37 03:17 WBC 11.3 H MCV RDW 15.7 H Lymph % (Auto) Lymph # Seg Neutrophils % POC ABG pH POC ABG pCO2 POC ABG pO2 Sodium Potassium Carbon Dioxide BUN Creatinine Glucose POC Glucose 69 L 65 L Lactic Acid Calcium Phosphorus Alkaline Phosphatase Ammonia NT-Pro-B Natriuret Pep Total Protein Albumin Urine WBC (Auto) Urine Creatinine Urine Total Protein 04/15/18 04/15/18 04/15/18 03:17 05:27 05:29 WBC MCV RDW Lymph % (Auto) Lymph # Seg Neutrophils % POC ABG pH POC ABG pCO2 29.8 L POC ABG pO2 Sodium Potassium Carbon Dioxide 18 L BUN 33 H Creatinine 4.1 H Glucose 63 L POC Glucose 66 L Lactic Acid Calcium 8.1 L Phosphorus Alkaline Phosphatase Ammonia NT-Pro-B Natriuret Pep Total Protein Albumin Urine WBC (Auto) Urine Creatinine Urine Total Protein 04/15/18 04/15/18 04/15/18 08:50 09:32 11:38 WBC MCV RDW Lymph % (Auto) Lymph # Seg Neutrophils % POC ABG pH POC ABG pCO2 POC ABG pO2 Sodium Potassium Carbon Dioxide BUN Creatinine Glucose POC Glucose 64 L 114 H 69 L Lactic Acid Calcium Phosphorus Alkaline Phosphatase Ammonia NT-Pro-B Natriuret Pep Total Protein Albumin Urine WBC (Auto) Urine Creatinine Urine Total Protein 04/16/18 04/16/18 04/17/18 03:51 03:51 04:33 WBC MCV 98 H RDW 15.5 H Lymph % (Auto) Lymph # Seg Neutrophils % POC ABG pH POC ABG pCO2 28.0 L POC ABG pO2 106 H Sodium Potassium Carbon Dioxide 19 L BUN 39 H Creatinine 4.2 H Glucose POC Glucose Lactic Acid Calcium 8.1 L Phosphorus Alkaline Phosphatase Ammonia NT-Pro-B Natriuret Pep Total Protein Albumin Urine WBC (Auto) Urine Creatinine Urine Total Protein 04/17/18 04/17/18 04/17/18 06:10 09:45 17:16 WBC MCV RDW Lymph % (Auto) Lymph # Seg Neutrophils % POC ABG pH POC ABG pCO2 POC ABG pO2 Sodium Potassium Carbon Dioxide 17 L BUN 47 H Creatinine 4.4 H Glucose 143 H 127 H POC Glucose 128 H Lactic Acid Calcium 8.3 L Phosphorus Alkaline Phosphatase Ammonia NT-Pro-B Natriuret Pep Total Protein Albumin Urine WBC (Auto) Urine Creatinine Urine Total Protein 04/17/18 04/17/18 04/18/18 20:40 23:56 00:06 WBC MCV RDW Lymph % (Auto) Lymph # Seg Neutrophils % POC ABG pH 7.308 L POC ABG pCO2 31.3 L POC ABG pO2 61 L Sodium Potassium Carbon Dioxide BUN Creatinine Glucose POC Glucose 45 L 47 L Lactic Acid Calcium Phosphorus Alkaline Phosphatase Ammonia NT-Pro-B Natriuret Pep Total Protein Albumin Urine WBC (Auto) Urine Creatinine Urine Total Protein 04/18/18 04:30 WBC MCV RDW Lymph % (Auto) Lymph # Seg Neutrophils % POC ABG pH POC ABG pCO2 POC ABG pO2 Sodium Potassium 3.5 L Carbon Dioxide 17 L BUN 51 H Creatinine 4.3 H Glucose 63 L POC Glucose Lactic Acid Calcium 8.0 L Phosphorus Alkaline Phosphatase Ammonia NT-Pro-B Natriuret Pep Total Protein Albumin Urine WBC (Auto) Urine Creatinine Urine Total Protein
--- NOTE | 2018-04-18 11:29 | Progress Note ---
Addendum entered and electronically signed by SHANELLE OVERTON MD 04/18/18 11:37: Supportive management, continue conservative cardiac medical therapy. Original Note: Assessment and Plan Status post seizure Respiratory failure currently intubated on mechanical ventilator Hx of coronary artery disease Ischemic cardiomyopathy Paroxysmal atrial fibrillation on oral anticoagulation with low dose Eliquis. RBBB, chronic Hypertension Chronic kidney disease Non-specific troponin in the setting of renal failure Echocardiogram 02/2018 reports a left ventricular ejection fraction 20-25%. There was moderate tricuspid regurgitation and pulmonary artery systolic pressure is mildly elevated at 40. Stress test 05/2017: Large fixed lateral wall defect Recommendations: Continue medical management for ischemic cardiomyopathy and coronary artery disease as tolerated. Conservative cardiac management. Subjective Date of service: 04/18/18 Principal diagnosis: Acute respiratory failure, secondary to seizure episode. Chronic kidney di Interval history: Patient remains sedated, intubated on mechanical ventilation. No reported cardiac events overnight. Objective Vital Signs Temp Pulse Pulse Pulse Pulse Pulse Pulse 04/18/18 11:03 94 H 04/18/18 10:47 93 H 04/18/18 10:00 93 H 04/18/18 09:00 81 04/18/18 08:23 81 04/18/18 08:00 97.8 F 81 94 H 04/18/18 07:00 81 04/18/18 06:10 98 H 04/18/18 06:00 105 H 04/18/18 05:00 85 04/18/18 04:00 99.8 F H 86 84 84 84 84 84 04/18/18 03:55 86 04/18/18 03:00 102 H 04/18/18 02:00 88 04/18/18 01:00 96 H 04/18/18 00:14 87 04/18/18 00:00 99.9 F H 94 H 04/17/18 23:57 90 04/17/18 23:54 88 04/17/18 23:50 89 89 89 89 89 04/17/18 23:00 90 04/17/18 22:34 91 H 04/17/18 22:00 93 H 04/17/18 21:59 103 H 04/17/18 21:00 103 H 04/17/18 20:20 97 H 04/17/18 20:00 100.4 F H 114 H 102 H 102 H 102 H 102 H 102 H 04/17/18 19:00 104 H 04/17/18 18:50 99 H 04/17/18 18:00 92 H 04/17/18 17:11 99 H 04/17/18 17:00 97 H 04/17/18 16:04 99.5 F 04/17/18 16:00 79 04/17/18 15:14 78 04/17/18 15:00 80 04/17/18 14:00 79 04/17/18 13:00 75 04/17/18 12:32 79 04/17/18 12:00 76 04/17/18 11:55 100.7 F H Resp BP Pulse Ox 04/18/18 11:03 135/73 04/18/18 10:47 136/76 100 04/18/18 10:00 21 136/76 100 04/18/18 09:00 18 133/71 91 04/18/18 08:23 28 H 114/68 98 04/18/18 08:00 22 131/69 99 04/18/18 07:00 28 H 114/68 98 04/18/18 06:10 126/84 04/18/18 06:00 15 130/68 97 04/18/18 05:00 23 134/73 99 04/18/18 04:00 22 132/72 99 04/18/18 03:55 134/78 99 04/18/18 03:00 20 132/82 99 04/18/18 02:00 22 130/76 95 04/18/18 01:00 27 H 121/71 96 04/18/18 00:14 20 124/69 93 04/18/18 00:00 26 H 124/69 91 04/17/18 23:57 124/69 93 04/17/18 23:54 21 121/67 94 04/17/18 23:50 44 H 87 04/17/18 23:00 22 128/77 94 04/17/18 22:34 144/90 04/17/18 22:00 18 136/79 96 04/17/18 21:59 04/17/18 21:00 38 H 189/117 97 04/17/18 20:20 182/91 73 L 04/17/18 20:00 67 H 180/95 90 04/17/18 19:00 18 190/102 04/17/18 18:50 190/102 04/17/18 18:00 17 180/81 73 L 04/17/18 17:11 182/91 97 04/17/18 17:00 19 182/91 90 04/17/18 16:04 04/17/18 16:00 46 H 159/85 97 04/17/18 15:14 158/87 04/17/18 15:00 44 H 158/87 98 04/17/18 14:00 18 136/81 93 04/17/18 13:00 35 H 139/71 98 04/17/18 12:32 28 H 155/87 98 04/17/18 12:00 22 154/75 99 04/17/18 11:55 - Physical Examination General: Other (intubated on the vent) Cardiac: Positive: Reg Rate and Rhythm Extremities: Absent: edema - Labs and Meds Comprehensive Metabolic Panel 04/18/18 Range/Units 04:30 Sodium 139 (137-145) mmol/L Potassium 3.5 L (3.6-5.0) mmol/L Chloride 103.7 (98-107) mmol/L Carbon Dioxide 17 L (22-30) mmol/L BUN 51 H (7-17) mg/dL Creatinine 4.3 H (0.7-1.2) mg/dL Glucose 63 L (65-100) mg/dL Calcium 8.0 L (8.4-10.2) mg/dL
--- NOTE | 2018-04-18 15:02 | Progress Note ---
Assessment and Plan Assessment and plan: 42-year-old woman who presented after a witnessed seizure. She was intubated, admitted to the ICU. pmh; HTN, Systolic CHF(EF 20%), CVA, DM, Seizure Disorder, COPD, Pulmonary HTN, CAD S/P Stent Placement Status epilepticus -Continue AED, dose was increased, neurology consult Acute respiratory failure secondary to seizure episode, on MV greater than 96 hours -Management per pulmonology BLAS on CKD -Had received dialysis previously -Nephrology input appreciated, responding to loop diuretics. No further indication for dialysis -Suspect that she is near her baseline creatinine Right bundle branch block, chronic, paroxysmal atrial fibrillation, systolic CHF EF 20% Hypercoagulable state -Cardiology input appreciated, continue conservative management -Eliquis poor prognosis, poor likelyhood of recovery MICHELLE is brother [phone], she previous had [employer] with kaci at home Will schedule family meeting on sunday to discuss goals of care Critical care time 35 minutes History Interval history: No seizures no fevers no agitation, no vomiting Hospitalist Physical - Physical exam Narrative exam: General.: Appears well, no distress, nontoxic HEENT: Moist mucous membranes, extraocular muscles intact, no lymphadenopathy Neck: supple Cardiac: S1-S2 heard Lungs: clear to auscultation bilaterally Abdomen: soft , nontender, nondistended, bowel sounds positive Extremities: no edema clubbing or cyanosis Skin: no rash or lesions Neurologic: Intubated, drowsy - Constitutional Vitals: Temp Pulse Resp BP Pulse Ox 97.8 F 76 24 119/62 96 04/18/18 12:00 04/18/18 13:00 04/18/18 13:00 04/18/18 13:00 04/18/18 13:00 General appearance: Present: severe distress Results - Labs CBC & Chem 7: 04/16/18 03:51 04/19/18 04:40 Labs: Laboratory Last Values WBC 10.1 K/mm3 (4.5-11.0) 04/16/18 03:51 RBC 3.72 M/mm3 (3.65-5.03) 04/16/18 03:51 Hgb 11.8 gm/dl (10.1-14.3) 04/16/18 03:51 Hct 36.4 % (30.3-42.9) 04/16/18 03:51 MCV 98 fl (79-97) H 04/16/18 03:51 MCH 32 pg (28-32) 04/16/18 03:51 MCHC 33 % (30-34) 04/16/18 03:51 RDW 15.5 % (13.2-15.2) H 04/16/18 03:51 Plt Count 156 K/mm3 (140-440) 04/16/18 03:51 Lymph % (Auto) 9.3 % (13.4-35.0) L 04/14/18 08:01 [place] % (Auto) 5.6 % (0.0-7.3) 04/14/18 08:01 Eos % (Auto) 0.7 % (0.0-4.3) 04/14/18 08:01 Baso % (Auto) 0.6 % (0.0-1.8) 04/14/18 08:01 Lymph # 0.7 K/mm3 (1.2-5.4) L 04/14/18 08:01 [place] # 0.4 K/mm3 (0.0-0.8) 04/14/18 08:01 Eos # 0.1 K/mm3 (0.0-0.4) 04/14/18 08:01 Baso # 0.0 K/mm3 (0.0-0.1) 04/14/18 08:01 Seg Neutrophils % 83.8 % (40.0-70.0) H 04/14/18 08:01 Seg Neutrophils # 6.4 K/mm3 (1.8-7.7) 04/14/18 08:01 PT 14.3 Sec. (12.2-14.9) 04/13/18 13:41 INR 1.07 (0.87-1.13) 04/13/18 13:41 APTT 28.9 Sec. (24.2-36.6) 04/13/18 13:41 Thrombin Time 17.3 Sec. (15.1-19.6) 04/13/18 13:41 POC ABG pH 7.308 (7.35-7.45) L 04/17/18 20:40 POC ABG pCO2 31.3 (35-45) L 04/17/18 20:40 POC ABG pO2 61 (80-105) L 04/17/18 20:40 POC ABG HCO3 15.7 04/17/18 20:40 POC ABG Total CO2 17 04/17/18 20:40 POC ABG O2 Sat 89 04/17/18 20:40 POC ABG Base Excess -11 04/17/18 20:40 FiO2 30 % 04/17/18 20:40 Sodium 139 mmol/L (137-145) 04/18/18 04:30 Potassium 3.5 mmol/L (3.6-5.0) L 04/18/18 04:30 Chloride 103.7 mmol/L (98-107) 04/18/18 04:30 Carbon Dioxide 17 mmol/L (22-30) L 04/18/18 04:30 Anion Gap 22 mmol/L 04/18/18 04:30 BUN 51 mg/dL (7-17) H 04/18/18 04:30 Creatinine 4.3 mg/dL (0.7-1.2) H 04/18/18 04:30 Estimated GFR 11 ml/min 04/18/18 04:30 BUN/Creatinine Ratio 12 % 04/18/18 04:30 Glucose 63 mg/dL (65-100) L 04/18/18 04:30 POC Glucose 96 (70-105) 04/18/18 12:37 Lactic Acid 1.10 mmol/L (0.7-2.0) 04/13/18 16:23 Calcium 8.0 mg/dL (8.4-10.2) L 04/18/18 04:30 Phosphorus 4.90 mg/dL (2.5-4.5) H 04/14/18 08:01 Magnesium 1.90 mg/dL (1.7-2.3) 04/14/18 08:01 Total Bilirubin 0.60 mg/dL (0.1-1.2) 04/14/18 08:01 Direct Bilirubin 0.2 mg/dL (0-0.2) 04/13/18 13:59 Indirect Bilirubin 0.3 mg/dL 04/13/18 13:59 AST 14 units/L (5-40) 04/14/18 08:01 ALT 7 units/L (7-56) 04/14/18 08:01 Alkaline Phosphatase 106 units/L (35-129) 04/14/18 08:01 Ammonia 47.0 umol/L (25-60) 04/16/18 11:17 Total Creatine Kinase 92 units/L (30-135) 04/13/18 13:59 CK-MB (CK-2) 3.7 ng/mL (0.0-4.0) 04/13/18 13:59 CK-MB (CK-2) Rel Index 4.0 (0-4) 04/13/18 13:59 Troponin T 0.010 ng/mL (0.00-0.029) 04/13/18 13:59 NT-Pro-B Natriuret Pep 86134 pg/mL (0-450) H 04/13/18 13:59 Total Protein 6.0 g/dL (6.3-8.2) L 04/14/18 08:01 Albumin 2.6 g/dL (3.9-5) L 04/14/18 08:01 Albumin/Globulin Ratio 0.8 % 04/14/18 08:01 Lipase 44 units/L (13-60) 04/13/18 13:59 Urine Color Diane (Yellow) 04/13/18 14:26 Urine Turbidity Cloudy (Clear) 04/13/18 14:26 Urine pH 5.0 (5.0-7.0) 04/13/18 14:26 Ur Specific [place] 1.017 (1.003-1.030) 04/13/18 14:26 Urine Protein >500 mg/dL (Negative) 04/13/18 14:26 Urine Glucose (UA) >=500 mg/dL (Negative) 04/13/18 14:26 Urine Ketones Neg mg/dL (Negative) 04/13/18 14:26 Urine Blood Neg (Negative) 04/13/18 14:26 Urine Nitrite Neg (Negative) 04/13/18 14:26 Urine Bilirubin Neg (Negative) 04/13/18 14:26 Urine Urobilinogen < 2.0 mg/dL (<2.0) 04/13/18 14:26 Ur Leukocyte Esterase Neg (Negative) 04/13/18 14:26 Urine WBC (Auto) 22.0 /HPF (0.0-6.0) H 04/13/18 14:26 Urine RBC (Auto) 17.0 /HPF (0.0-6.0) 04/13/18 14:26 U Epithel Cells (Auto) 3.0 /HPF (0-13.0) 04/13/18 14:26 Urine Bacteria (Auto) 4+ /HPF (Negative) 04/13/18 14:26 Urine Mucus Few /HPF 04/13/18 14:26 Urine Yeast (Budding) 3+ /HPF 04/13/18 14:26 Urine Eosinophils 7% (None Seen) 04/14/18 11:23 Urine Creatinine 85.5 mg/dL (0.1-20.0) H 04/14/18 11:23 Protein/Creatinin Ratio 1.78 04/14/18 11:23 Urine Sodium 82 mmol/L 04/14/18 11:23 Fraction Sodium Excret 2.3 04/14/18 11:23 Urine Total Protein 152 mg/dL (5-11.8) H 04/14/18 11:23 Urine Opiates Screen Presumptive negative 04/13/18 14:26 Urine Methadone Screen Presumptive negative 04/13/18 14:26 Ur Barbiturates Screen Presumptive negative 04/13/18 14:26 Levetiracetam 37.6 mcg/mL 04/13/18 19:19 Ur Phencyclidine Scrn Presumptive negative 04/13/18 14:26 Ur Amphetamines Screen Presumptive negative 04/13/18 14:26 U Benzodiazepines Scrn Presumptive negative 04/13/18 14:26 Urine Cocaine Screen Presumptive negative 04/13/18 14:26 U Marijuana (THC) Screen Presumptive negative 04/13/18 14:26 Drugs of Abuse Note Disclamer 04/13/18 14:26 Double Strand DNA Ab <1 IU/mL (<=4) 04/14/18 11:56 Complement C3 155 mg/dL (83-193) 04/14/18 11:56 Complement C4 28 mg/dL (15-57) 04/14/18 11:56 Hepatitis A IgM Ab Non-reactive (NonReactive) 04/14/18 11:56 Hep Bs Antigen Non-reactive (Negative) 04/14/18 11:56 Hep B Core IgM Ab Non-reactive (NonReactive) 04/14/18 11:56 Hepatitis C Antibody Non-reactive (NonReactive) 04/14/18 11:56 Nutrition/Malnutrition Assess - Dietary Evaluation Nutrition/Malnutrition Findings: Nutrition Notes Start: 04/14/18 09:47 Freq: Status: Active Protocol: Document 04/18/18 13:39 KH (Rec: 04/18/18 14:06 [email or web address]) Co-Sign 04/18/18 13:39 OL Nutrition Notes Initial or Follow up Reassessment Current Diagnosis CKD(stage I-IV) COPD Diabetes Hypertension Heart Failure Respiratory Failure Stroke Other Pertinent Diagnosis Hx of seizures, Wounds on R and L LE, fungal rash on groin and ischial fold Current Diet Vital High Protein at 70ml/hr Labs/Tests K: 3.5 BUN: 51 Cr: 4.3 Glu: 63 Pertinent Medications Reviewed. Height 5 ft 8 in Weight 102.058 kg [place] Body Weight (lbs) 140.0 BMI 34.2 Weight Status Obese Subjective/Other Information Pt f/u for TF initiation and toleration. TF initiated around 09:30am per pt RN. Observed Vital High Protein at 10ml/hr. Burn Absent Trauma Absent #2 Nutrition Diagnosis Increased nutrient needs ( specify in comment below) Diagnosis Progress(for reassessment Continues documentation) #1 Nutrition Diagnosis Inadequate oral intake Diagnosis Progress(for reassessment Continues documentation) Is patient on ventilator? Yes Is Patient Ambulatory and/or Out of Bed No REE-([place] Jeor-confined to bed) 1.800 Kcal/Kg value to use for calculation 14 Approximate Energy Requirements Using 1429 kcal/Kg Calculation Used for Recommendations Kcal/kg Additional Notes IBW:64 KG Protein needs are 128g (2g/kg IBW) Fluid needs are 1ml/kcal or per MD Nutrition Intervention Nutrition Support: Vital High Protein at 70ml/hr with water flush of 50ml q4h Kcal 1,680 Protein (gm) 147 Fluid (mL) 1,704 Goal #1 TF tolerance Anticipated Discharge Needs: Unable to determine at this time Follow-Up By: 04/20/18 Additional Comments F/U for TF goal rate and tolerance, K labs for possible switch to [place].
--- NOTE | 2018-04-18 15:06 | Cat Scan Report ---
CT CHEST WITHOUT CONTRAST: HISTORY: Pneumonia, respiratory failure. COMPARISON: none. TECHNIQUE: Helical CT in 1.25mm intervals without IV contrast. Sagittal and coronal reformatted images. FINDINGS: Thyroid gland: Normal. Tracheobronchial tree: An endotracheal tube is in place. The tracheobronchial tree is unremarkable. Esophagus: Normal. Heart: Mild cardiomegaly. Pericardium: Normal. Mediastinum: Normal. Lung Desai: Bibasilar infiltrates are identified which could represent aspiration. No underlying parenchymal lung disease is appreciated. Pleural Spaces: Trace bilateral pleural effusions. Musculoskeletal: Intact. Mild thoracic spondylosis is noted. IMPRESSION: Mild cardiomegaly. Trace bilateral pleural effusions. Bibasilar infiltrates concerning for aspiration.
[2018-04-18] MEDS: ZITHROMAX 500 MG in NACL 0.9% 250ML 250 ML IV SCH (15:45)
[2018-04-18] MEDS: ELIQUIS FEEDTUBE SCH (15:45)
[2018-04-18 20:14] LABS: Myeloperoxidase Antibody <1.0 AI (<1.0)
--- NOTE | 2018-04-18 22:54 | XRay Report ---
FINAL REPORT PROCEDURE: Abdomen. TECHNIQUE: AP view. HISTORY: dobbhoff tube placement COMPARISON: No prior studies are available for comparison. FINDINGS: The radiograph is centered on the upper abdomen. There is a Dobhoff feeding tube that terminates in t he gastric antrum. The soft tissues and regional skeleton are unremarkable. IMPRESSION: Dobhoff tube in stomach.
--- NOTE | 2018-04-18 23:40 | Physician Progress Note ---
SUBJECTIVE: The patient is being followed neurologically because of seizure. The patient also has multiple medical problems. She is currently intubated. She appeared to be more relaxed compared to yesterday. The patient has multiple problems in terms of hypertension, stroke, myocardial infarction, congestive heart failure, and diabetes. PHYSICAL EXAMINATION: GENERAL: Today, the patient is intubated. VITAL SIGNS: Stable. HEENT: She has corneal reflex. HEART: Showed some irregularity. EXTREMITIES: Legs, some swelling. ASSESSMENT: The patient has seizure, most likely multifactorial. The patient is medically very sick. I cannot rule out stroke. PLAN: Continue the same intensive medical management. ____ systems involved. Continue anticonvulsant. Prognosis looks very, very poor. Fully discussed with the brother, who is at the bedside. JOB# [id number] MARIANNA/GOVIND
[2018-04-19] MEDS: KEPPRA PO SCH ×3 (00:08→23:36)
[2018-04-19] MEDS: ELIQUIS FEEDTUBE SCH ×3 (00:19→23:36)
[2018-04-19] MEDS: SODIUM BICARBONATE PO SCH ×3 (00:31→23:38)
--- NOTE | 2018-04-19 03:13 | XRay Report ---
FINAL REPORT PROCEDURE: XR CHEST 1V AP TECHNIQUE: Chest radiograph anteroposterior view. CPT 64890 HISTORY: follow up respiratory failure COMPARISON: 04/18/2018 FINDINGS: Heart: The heart is enlarged Mediastinum/Vessels: Normal. Lungs/Pleural space: There are multifocal bilateral pulmonary infiltrates which have slightly improve d since the prior study.. Bony thorax: No acute osseous abnormality. Life support devices: There is an endotracheal tube the mid trachea. There is an NG tube in the stoma ch.. IMPRESSION: The heart is enlarged There are multifocal bilateral pulmonary infiltrates which have slightly improved since the prior gage dy.. There is an endotracheal tube the mid trachea. There is an NG tube in the stomach.. .
[2018-04-19 05:19] LABS: Calcium 8.4 mg/dL (8.4-10.2)
[2018-04-19] MEDS: APRESOLINE PO SCH ×3 (05:21→23:37)
--- NOTE | 2018-04-19 09:15 | Progress Note ---
Assessment and Plan Acute respiratory failure, secondary to seizure episode. Aspiration pneumonia. See Chest CT for further review. On ABx, ID consult Chronic kidney disease. Medication noncompliance COPD per notes Recommendations Check cultures Sedation vacation. Initiate SBP as tolerated Continue antiseizure medications ID f/u DVT prophylaxis PPI prophylaxis No family available for case discussion Critical care time was 31 minutes of [id number] evaluation and coordination of care Subjective Date of service: 04/19/18 Principal diagnosis: Acute respiratory failure, secondary to seizure episode. Chronic kidney di Interval history: No SOB Objective Vital Signs - 12hr 04/18/18 04/18/18 04/18/18 22:00 23:00 23:37 Temperature 99.2 F Pulse Rate 95 H 83 Pulse Rate [ Dorsalis Pedis] Pulse Rate [ From Monitor] Pulse Rate [ Left Radial] Pulse Rate [ Radial] Pulse Rate [ Right Dorsalis Pedis] Respiratory 26 H 27 H Rate Blood Pressure 151/75 139/80 O2 Sat by Pulse 98 97 Oximetry 04/18/18 04/19/18 04/19/18 23:54 00:00 01:00 Temperature Pulse Rate 82 101 H 83 Pulse Rate [ Dorsalis Pedis] Pulse Rate [ 83 From Monitor] Pulse Rate [ Left Radial] Pulse Rate [ Radial] Pulse Rate [ 83 Right Dorsalis Pedis] Respiratory 10 L 16 19 Rate Blood Pressure 140/100 140/100 135/76 O2 Sat by Pulse 96 99 95 Oximetry 04/19/18 04/19/18 04/19/18 02:00 03:00 03:32 Temperature 98.8 F Pulse Rate 102 H 98 H Pulse Rate [ Dorsalis Pedis] Pulse Rate [ From Monitor] Pulse Rate [ Left Radial] Pulse Rate [ Radial] Pulse Rate [ Right Dorsalis Pedis] Respiratory 19 20 Rate Blood Pressure 135/72 133/81 O2 Sat by Pulse 100 100 Oximetry 04/19/18 04/19/18 04/19/18 04:00 05:00 05:21 Temperature Pulse Rate 81 102 H 68 Pulse Rate [ 80 Dorsalis Pedis] Pulse Rate [ 80 From Monitor] Pulse Rate [ 80 Left Radial] Pulse Rate [ 80 Radial] Pulse Rate [ 80 Right Dorsalis Pedis] Respiratory 15 18 Rate Blood Pressure 125/67 134/79 134/79 O2 Sat by Pulse 100 100 Oximetry 04/19/18 04/19/18 04/19/18 06:00 06:10 08:13 Temperature Pulse Rate 105 H 85 101 H Pulse Rate [ Dorsalis Pedis] Pulse Rate [ From Monitor] Pulse Rate [ Left Radial] Pulse Rate [ Radial] Pulse Rate [ Right Dorsalis Pedis] Respiratory 19 Rate Blood Pressure 128/72 134/69 129/75 O2 Sat by Pulse 100 100 Oximetry 04/19/18 04/19/18 08:19 08:58 Temperature Pulse Rate 83 85 Pulse Rate [ Dorsalis Pedis] Pulse Rate [ From Monitor] Pulse Rate [ Left Radial] Pulse Rate [ Radial] Pulse Rate [ Right Dorsalis Pedis] Respiratory 33 H Rate Blood Pressure 129/75 141/75 O2 Sat by Pulse 100 100 Oximetry Constitutional: no acute distress, asleep ENT: other (orally intubated and sedated) Neck: no JVD Effort: normal Ascultation: Bilateral: clear Percussion: Bilateral: not dull Cardiovascular: regular rate and rhythm Gastrointestinal: normoactive bowel sounds, soft, non-tender Extremities: no edema, pink and warm, pulses normal Neurologic: unable to assess, other (RASS -1) CBC and BMP: 04/16/18 03:51 04/19/18 04:40 ABG, PT/INR, D-dimer: ABG POC ABG pH 7.308 (7.35-7.45) L 04/17/18 20:40 POC ABG pCO2 31.3 (35-45) L 04/17/18 20:40 POC ABG pO2 61 (80-105) L 04/17/18 20:40 POC ABG HCO3 15.7 04/17/18 20:40 POC ABG Total CO2 17 04/17/18 20:40 POC ABG O2 Sat 89 04/17/18 20:40 PT/INR, D-dimer PT 14.3 Sec. (12.2-14.9) 04/13/18 13:41 INR 1.07 (0.87-1.13) 04/13/18 13:41 Abnormal lab findings: Abnormal Labs 04/13/18 04/13/18 04/13/18 13:41 13:59 13:59 WBC MCV 103 H RDW 16.8 H Lymph % (Auto) Lymph # Seg Neutrophils % 73.1 H POC ABG pH POC ABG pCO2 POC ABG pO2 Sodium 136 L Potassium Carbon Dioxide 13 L BUN 30 H Creatinine 4.0 H Glucose 210 H POC Glucose Lactic Acid 3.10 H* Calcium 8.1 L Phosphorus Alkaline Phosphatase 130 H Ammonia NT-Pro-B Natriuret Pep 46809 H Total Protein Albumin 2.9 L Urine WBC (Auto) Urine Creatinine Urine Total Protein 04/13/18 04/13/18 04/13/18 13:59 14:07 14:26 WBC MCV RDW Lymph % (Auto) Lymph # Seg Neutrophils % POC ABG pH 7.262 L POC ABG pCO2 32.8 L POC ABG pO2 Sodium Potassium Carbon Dioxide BUN Creatinine Glucose POC Glucose Lactic Acid Calcium Phosphorus Alkaline Phosphatase Ammonia 65.0 H NT-Pro-B Natriuret Pep Total Protein Albumin Urine WBC (Auto) 22.0 H Urine Creatinine Urine Total Protein 04/13/18 04/14/18 04/14/18 14:30 05:06 08:01 WBC MCV 98 H RDW 15.9 H Lymph % (Auto) 9.3 L Lymph # 0.7 L Seg Neutrophils % 83.8 H POC ABG pH POC ABG pCO2 31.8 L POC ABG pO2 127 H Sodium Potassium Carbon Dioxide BUN Creatinine Glucose POC Glucose 181 H Lactic Acid Calcium Phosphorus Alkaline Phosphatase Ammonia NT-Pro-B Natriuret Pep Total Protein Albumin Urine WBC (Auto) Urine Creatinine Urine Total Protein 04/14/18 04/14/18 04/14/18 08:01 11:23 11:23 WBC MCV RDW Lymph % (Auto) Lymph # Seg Neutrophils % POC ABG pH POC ABG pCO2 POC ABG pO2 Sodium Potassium Carbon Dioxide 18 L BUN 30 H Creatinine 4.1 H 3.9 H Glucose POC Glucose Lactic Acid Calcium 8.1 L Phosphorus 4.90 H Alkaline Phosphatase Ammonia NT-Pro-B Natriuret Pep Total Protein 6.0 L Albumin 2.6 L Urine WBC (Auto) Urine Creatinine 85.5 H Urine Total Protein 152 H 04/14/18 04/14/18 04/15/18 19:04 23:37 03:17 WBC 11.3 H MCV RDW 15.7 H Lymph % (Auto) Lymph # Seg Neutrophils % POC ABG pH POC ABG pCO2 POC ABG pO2 Sodium Potassium Carbon Dioxide BUN Creatinine Glucose POC Glucose 69 L 65 L Lactic Acid Calcium Phosphorus Alkaline Phosphatase Ammonia NT-Pro-B Natriuret Pep Total Protein Albumin Urine WBC (Auto) Urine Creatinine Urine Total Protein 04/15/18 04/15/18 04/15/18 03:17 05:27 05:29 WBC MCV RDW Lymph % (Auto) Lymph # Seg Neutrophils % POC ABG pH POC ABG pCO2 29.8 L POC ABG pO2 Sodium Potassium Carbon Dioxide 18 L BUN 33 H Creatinine 4.1 H Glucose 63 L POC Glucose 66 L Lactic Acid Calcium 8.1 L Phosphorus Alkaline Phosphatase Ammonia NT-Pro-B Natriuret Pep Total Protein Albumin Urine WBC (Auto) Urine Creatinine Urine Total Protein 04/15/18 04/15/18 04/15/18 08:50 09:32 11:38 WBC MCV RDW Lymph % (Auto) Lymph # Seg Neutrophils % POC ABG pH POC ABG pCO2 POC ABG pO2 Sodium Potassium Carbon Dioxide BUN Creatinine Glucose POC Glucose 64 L 114 H 69 L Lactic Acid Calcium Phosphorus Alkaline Phosphatase Ammonia NT-Pro-B Natriuret Pep Total Protein Albumin Urine WBC (Auto) Urine Creatinine Urine Total Protein 04/16/18 04/16/18 04/17/18 03:51 03:51 04:33 WBC MCV 98 H RDW 15.5 H Lymph % (Auto) Lymph # Seg Neutrophils % POC ABG pH POC ABG pCO2 28.0 L POC ABG pO2 106 H Sodium Potassium Carbon Dioxide 19 L BUN 39 H Creatinine 4.2 H Glucose POC Glucose Lactic Acid Calcium 8.1 L Phosphorus Alkaline Phosphatase Ammonia NT-Pro-B Natriuret Pep Total Protein Albumin Urine WBC (Auto) Urine Creatinine Urine Total Protein 04/17/18 04/17/18 04/17/18 06:10 09:45 17:16 WBC MCV RDW Lymph % (Auto) Lymph # Seg Neutrophils % POC ABG pH POC ABG pCO2 POC ABG pO2 Sodium Potassium Carbon Dioxide 17 L BUN 47 H Creatinine 4.4 H Glucose 143 H 127 H POC Glucose 128 H Lactic Acid Calcium 8.3 L Phosphorus Alkaline Phosphatase Ammonia NT-Pro-B Natriuret Pep Total Protein Albumin Urine WBC (Auto) Urine Creatinine Urine Total Protein 04/17/18 04/17/18 04/18/18 20:40 23:56 00:06 WBC MCV RDW Lymph % (Auto) Lymph # Seg Neutrophils % POC ABG pH 7.308 L POC ABG pCO2 31.3 L POC ABG pO2 61 L Sodium Potassium Carbon Dioxide BUN Creatinine Glucose POC Glucose 45 L 47 L Lactic Acid Calcium Phosphorus Alkaline Phosphatase Ammonia NT-Pro-B Natriuret Pep Total Protein Albumin Urine WBC (Auto) Urine Creatinine Urine Total Protein 04/18/18 04/19/18 04:30 04:40 WBC MCV RDW Lymph % (Auto) Lymph # Seg Neutrophils % POC ABG pH POC ABG pCO2 POC ABG pO2 Sodium Potassium 3.5 L Carbon Dioxide 17 L 19 L BUN 51 H 56 H Creatinine 4.3 H 4.2 H Glucose 63 L POC Glucose Lactic Acid Calcium 8.0 L Phosphorus Alkaline Phosphatase Ammonia NT-Pro-B Natriuret Pep Total Protein Albumin Urine WBC (Auto) Urine Creatinine Urine Total Protein
[2018-04-19] MEDS: ZITHROMAX 500 MG in NACL 0.9% 250ML 250 ML IV SCH (12:25)
--- NOTE | 2018-04-19 12:27 | Progress Note ---
Subjective Principal diagnosis: Acute respiratory failure, secondary to seizure episode. Chronic kidney di Interval history: Patient was seen today for follow-up of multiple renal related issues resting comfortably in bed Interdisciplinary notes that also reviewed Events of 24 hours vitals labs intake output medications were reviewed Past medical history: Reviewed Family history: Reviewed Social history: Reviewed Allergies: Reviewed Physical examination: Vitals: Reviewed HEENT: No pallor or icterus oral mucosa moist Neck: Supple no JVD no thyromegaly Chest: Bilateral clear to auscultation anteriorly Heart: Regular rate and rhythm S1-S2 heard no S3-S4 Abdomen: Soft nontender no voluntary guarding rigidity rebound Extremity: Dry skin less than 1+ peripheral edema Psychiatric: No evidence of agitation and aggression noted Dermatology: No petechial rashes Labs and x-rays: Reviewed from today Assessment and plan Acute on chronic renal failure: No emergent indication for renal replacement therapy function appears to be stable patient is currently nonoliguric and his volume with diuretics only of this time Respiratory failure currently ventilator dependent with history of underlying COPD as well as pulmonary hypertension From dialysis standpoint her potassium was 2.6 bicarbonate 19 BUN 56 creatinine 4.2 and calcium is 8.4, last hemoglobin was 11.8 Will order for follow-up labs tomorrow morning including CBC BMP phosphorus level Blood pressure appears to be satisfactorily controlled Avoid any nephrotoxic medication continue with supportive care no emergent identification for renal replacement therapy today We'll continue to follow and make recommendation for renal standpoint Objective - Vital Signs Vital signs: Vital Signs - 12hr 04/19/18 04/19/18 04/19/18 01:00 02:00 03:00 Temperature Pulse Rate 83 102 H 98 H Pulse Rate [ Dorsalis Pedis] Pulse Rate [ From Monitor] Pulse Rate [ Left Radial] Pulse Rate [ Radial] Pulse Rate [ Right Dorsalis Pedis] Respiratory 19 19 20 Rate Blood Pressure 135/76 135/72 133/81 O2 Sat by Pulse 95 100 100 Oximetry 04/19/18 04/19/18 04/19/18 03:32 04:00 05:00 Temperature 98.8 F Pulse Rate 81 102 H Pulse Rate [ 80 Dorsalis Pedis] Pulse Rate [ 80 From Monitor] Pulse Rate [ 80 Left Radial] Pulse Rate [ 80 Radial] Pulse Rate [ 80 Right Dorsalis Pedis] Respiratory 15 18 Rate Blood Pressure 125/67 134/79 O2 Sat by Pulse 100 100 Oximetry 04/19/18 04/19/18 04/19/18 05:21 06:00 06:10 Temperature Pulse Rate 68 105 H 85 Pulse Rate [ Dorsalis Pedis] Pulse Rate [ From Monitor] Pulse Rate [ Left Radial] Pulse Rate [ Radial] Pulse Rate [ Right Dorsalis Pedis] Respiratory 19 Rate Blood Pressure 134/79 128/72 134/69 O2 Sat by Pulse 100 Oximetry 04/19/18 04/19/18 04/19/18 08:13 08:19 08:58 Temperature Pulse Rate 101 H 83 85 Pulse Rate [ Dorsalis Pedis] Pulse Rate [ From Monitor] Pulse Rate [ Left Radial] Pulse Rate [ Radial] Pulse Rate [ Right Dorsalis Pedis] Respiratory 33 H Rate Blood Pressure 129/75 129/75 141/75 O2 Sat by Pulse 100 100 100 Oximetry - Lab 04/16/18 03:51 04/19/18 04:40 Most recent lab results Calcium 8.4 mg/dL (8.4-10.2) 04/19/18 04:40 Phosphorus 4.90 mg/dL (2.5-4.5) H 04/14/18 08:01 Magnesium 1.90 mg/dL (1.7-2.3) 04/14/18 08:01 Urine Creatinine 85.5 mg/dL (0.1-20.0) H 04/14/18 11:23 Urine Sodium 82 mmol/L 04/14/18 11:23 Urine Total Protein 152 mg/dL (5-11.8) H 04/14/18 11:23 Medications & Allergies - Medications Allergies/Adverse Reactions: Allergies No Known Allergies Allergy (Verified 04/17/18 10:03) Home Medications: Home Medications Medication Instructions Recorded Confirmed Last Taken Type Lispro Insulin [Humalog] 15 unit SQ BID 07/17/17 02/17/18 02/16/18 History Aspirin EC [Aspirin Enteric Coated 81 mg PO QDAY #30 tablet 07/22/17 02/17/18 02/17/18 Rx TAB] 81mg Insulin NPH, Human [NovoLIN N] 15 unit SUB-Q BID 12/02/17 12/02/17 12/01/17 History Lantus 45 units SUB-Q QHS 12/02/17 12/02/17 11/30/17 History Labetalol [Normodyne TAB] 200 mg PO BID #60 tablet 12/04/17 Unknown Rx Sulfamethoxazole/Trimethoprim 1 each PO BID #14 tablet 12/04/17 Unknown Rx [Bactrim DS TAB] amLODIPine [Norvasc] 10 mg PO QDAY #30 tablet 12/04/17 Unknown Rx Apixaban [Eliquis] 2.5 mg PO BID 60 Days tablet 02/22/18 Unknown Rx AtorvaSTATin [Lipitor] 20 mg PO QHS #30 tablet 02/22/18 Unknown Rx Furosemide [Lasix TAB] 80 mg PO 0600,1800 #30 tablet 02/22/18 Unknown Rx Insulin Glargine,Hum.rec.anlog 20 unit SQ QHS #30 insuln.pen 02/22/18 Unknown Rx [Lantus Solostar] Lisinopril [Zestril TAB] 20 mg PO QDAY #30 tablet 02/22/18 Unknown Rx Lispro Insulin [Humalog] 0 unit SUB-Q ACHS units 02/22/18 Unknown Rx Metoprolol Xl [Metoprolol 25 mg PO QDAY #30 tablet 02/22/18 Unknown Rx SUCCINATE ER TAB] Potassium Chloride [K-Dur] 20 meq PO Q12HR #60 tablet 02/22/18 Unknown Rx hydrALAZINE [Apresoline TAB] 25 mg PO TID #90 tablet 02/22/18 Unknown Rx levETIRAcetam [Keppra TAB] 500 mg PO BID #90 tablet 02/22/18 Unknown Rx oxyCODONE /ACETAMINOPHEN [Percocet 1 tab PO Q6H PRN #30 tablet 02/22/18 Unknown Rx 5/325 mg] Active Medications: Generic Name Dose Route Start Last Admin Trade Name Freq PRN Reason Stop Dose Admin Albuterol 2.5 mg 04/13/18 14:57 Proventil IH Q3H PRN Shortness Of Breath Lipase/Protease/Amylase 1 each 04/18/18 08:58 Kellee Archibald 10,500 Unit FEEDTUBE PRN PRN For Clogged Feeding Tube Apixaban 2.5 mg 04/14/18 18:00 04/19/18 00:19 Eliquis FEEDTUBE 2.5 mg Q12HR CECILE Administration Protocol Dextrose 50 ml 04/14/18 19:05 04/18/18 00:15 D50w (25gm) Syringe IV 50 ml PRN PRN Administration Hypoglycemia Famotidine 20 mg 04/15/18 10:00 04/18/18 11:04 Pepcid PO 20 mg DAILY CECILE Administration Hydralazine HCl 10 mg 04/14/18 16:15 04/17/18 18:50 Apresoline IV 10 mg Q4HR PRN Administration SBP >150 or DBP >90 Hydralazine HCl 25 mg 04/14/18 17:00 04/19/18 06:10 Apresoline PO 25 mg Q8HR CECILE Administration Hydrophilic Ointment 1 applic 04/13/18 13:43 Vaseline Lip Therapy TP Q2HR PRN Dry Lips Propofol 1,000 mg in 100 mls @ 3.062 mls/hr 04/13/18 16:00 04/14/18 16:50 Diprivan 10 Mg/Ml IV 0 mcg/kg/min TITR CECILE 0 mls/hr Titration Protocol 5 MCG/KG/MIN Ceftriaxone Sodium 2 gm in 100 mls @ 200 mls/hr 04/18/18 11:00 04/18/18 13:09 Rocephin/Ns 2 Gm/100 Ml IV 200 mls/hr Q24HR CECILE Administration Azithromycin 500 mg/ Sodium 250 mls @ 250 mls/hr 04/18/18 11:00 04/18/18 15:45 Chloride IV 250 mls/hr Q24HR CECILE Administration Levetiracetam 750 mg 04/15/18 11:00 04/19/18 00:08 Keppra PO 750 mg BID CECILE Administration Lorazepam 2 mg 04/13/18 13:43 04/15/18 23:19 Ativan IV 2 mg Q10MIN PRN Administration Agitation Metoprolol Tartrate 25 mg 04/14/18 11:00 04/18/18 11:03 Lopressor PO 25 mg QDAY CECILE Administration Multi-Ingred Cream/Lotion/Oil/Oint 1 applic 04/13/18 13:43 Artificial Tears Ophth Oint OU Q4HR PRN Dry Eye(s) Simple Syrup 15 ml 04/18/18 08:58 Simple Syrup FEEDTUBE PRN PRN Hypoglycemia Simple Syrup 30 ml 04/18/18 08:58 Simple Syrup FEEDTUBE PRN PRN Hypoglycemia Sodium Bicarbonate 1,300 mg 04/18/18 10:00 04/19/18 00:31 Sodium Bicarbonate PO 1,300 mg BID CECILE Administration Sodium Bicarbonate 325 mg 04/18/18 08:58 Sodium Bicarbonate FEEDTUBE PRN PRN For Clogged Feeding Tube Sodium Chloride 10 ml 04/13/18 22:00 04/18/18 22:00 Sodium Chloride Flush Syringe 10 Ml IV 10 ml BID CECILE Administration Sodium Chloride 10 ml 04/13/18 14:57 04/17/18 05:42 Sodium Chloride Flush Syringe 10 Ml IV 10 ml PRN PRN Administration LINE FLUSH
[2018-04-19] MEDS: LOPRESSOR PO SCH (12:29)
--- NOTE | 2018-04-19 12:29 | Progress Note ---
Assessment and Plan Status post seizure Respiratory failure currently intubated on mechanical ventilator Hx of coronary artery disease Ischemic cardiomyopathy Paroxysmal atrial fibrillation on oral anticoagulation with low dose Eliquis. RBBB, chronic Hypertension Chronic kidney disease Non-specific troponin in the setting of renal failure Echocardiogram 02/2018 reports a left ventricular ejection fraction 20-25%. There was moderate tricuspid regurgitation and pulmonary artery systolic pressure is mildly elevated at 40. Stress test 05/2017: Large fixed lateral wall defect Recommendations: Continue medical management for ischemic cardiomyopathy and coronary artery disease as tolerated. Otherwise, conservative cardiac management. We will sign off. Subjective Date of service: 04/19/18 Principal diagnosis: Acute respiratory failure, secondary to seizure episode. Chronic kidney di Interval history: Patient remains sedated, intubated on mechanical ventilation. No reported cardiac events overnight. Objective Vital Signs Temp Pulse Pulse Pulse Pulse Pulse Pulse 04/19/18 08:58 85 04/19/18 08:19 83 04/19/18 08:13 101 H 04/19/18 06:10 85 04/19/18 06:00 105 H 04/19/18 05:21 68 04/19/18 05:00 102 H 04/19/18 04:00 81 80 80 80 80 80 04/19/18 03:32 98.8 F 04/19/18 03:00 98 H 04/19/18 02:00 102 H 04/19/18 01:00 83 04/19/18 00:00 101 H 83 83 04/18/18 23:54 82 04/18/18 23:37 99.2 F 04/18/18 23:00 83 04/18/18 22:00 95 H 04/18/18 21:00 83 04/18/18 20:00 88 84 84 84 84 84 04/18/18 19:49 98.5 F 04/18/18 19:15 100 H 04/18/18 19:00 107 H 04/18/18 18:00 77 04/18/18 17:00 83 04/18/18 16:15 78 04/18/18 16:00 98.3 F 77 77 04/18/18 15:00 78 04/18/18 14:00 76 04/18/18 13:00 76 04/18/18 12:50 76 Resp BP Pulse Ox 04/19/18 08:58 141/75 100 04/19/18 08:19 33 H 129/75 100 04/19/18 08:13 129/75 100 04/19/18 06:10 134/69 04/19/18 06:00 19 128/72 100 04/19/18 05:21 134/79 04/19/18 05:00 18 134/79 100 04/19/18 04:00 15 125/67 100 04/19/18 03:32 04/19/18 03:00 20 133/81 100 04/19/18 02:00 19 135/72 100 04/19/18 01:00 19 135/76 95 04/19/18 00:00 16 140/100 99 04/18/18 23:54 10 L 140/100 96 04/18/18 23:37 04/18/18 23:00 27 H 139/80 97 04/18/18 22:00 26 H 151/75 98 04/18/18 21:00 26 H 142/74 99 04/18/18 20:00 15 157/78 100 04/18/18 19:49 04/18/18 19:15 157/74 100 04/18/18 19:00 29 H 154/75 82 L 04/18/18 18:00 34 H 143/73 100 04/18/18 17:00 29 H 143/73 97 04/18/18 16:15 128/66 98 04/18/18 16:00 20 138/75 93 04/18/18 15:00 21 98 04/18/18 14:00 20 128/66 97 04/18/18 13:00 24 119/62 96 04/18/18 12:50 119/62 96 - Physical Examination General: Other (intubated on the vent) Cardiac: Positive: Reg Rate and Rhythm Extremities: Absent: edema - Labs and Meds Comprehensive Metabolic Panel 04/19/18 Range/Units 04:40 Sodium 140 (137-145) mmol/L Potassium 3.6 (3.6-5.0) mmol/L Chloride 103.5 (98-107) mmol/L Carbon Dioxide 19 L (22-30) mmol/L BUN 56 H (7-17) mg/dL Creatinine 4.2 H (0.7-1.2) mg/dL Glucose 84 (65-100) mg/dL Calcium 8.4 (8.4-10.2) mg/dL
[2018-04-19] MEDS: PEPCID PO SCH (12:31)
[2018-04-19] MEDS: SODIUM CHLORIDE FLUSH SYRINGE 10 ML IV SCH (12:34)
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
--- NOTE | 2018-04-19 14:47 | Progress Note ---
Assessment and Plan Assessment and plan: 42-year-old woman who presented after a witnessed seizure. She was intubated, admitted to the ICU. pmh; HTN, Systolic CHF(EF 20%), CVA, DM, Seizure Disorder, COPD, Pulmonary HTN, CAD S/P Stent Placement Status epilepticus -Continue AED, dose was increased, neurology consult Acute respiratory failure secondary to seizure episode, on MV greater than 96 hours -Management per pulmonology BLAS on CKD -Had received dialysis previously -Nephrology input appreciated, responding to loop diuretics. No further indication for dialysis -Suspect that she is near her baseline creatinine Right bundle branch block, chronic, paroxysmal atrial fibrillation, systolic CHF EF 20% Hypercoagulable state -Cardiology input appreciated, continue conservative management -Eliquis poor prognosis, poor likelyhood of recovery MICHELLE is brother [phone], she previous had PSYCHOMETRICIAN with [facility] at home Will schedule family meeting on sunday to discuss goals of care Critical care time 35 minutes History Interval history: No seizures no fevers no agitation, no vomiting Hospitalist Physical - Physical exam Narrative exam: General.: Appears well, no distress, nontoxic HEENT: Moist mucous membranes, extraocular muscles intact, no lymphadenopathy Neck: supple Cardiac: S1-S2 heard Lungs: clear to auscultation bilaterally Abdomen: soft , nontender, nondistended, bowel sounds positive Extremities: no edema clubbing or cyanosis Skin: no rash or lesions Neurologic: Intubated, drowsy - Constitutional Vitals: Temp Pulse Resp BP Pulse Ox 98.8 F 83 33 H 134/75 100 04/19/18 03:32 04/19/18 12:32 04/19/18 08:19 04/19/18 12:32 04/19/18 12:32 General appearance: Present: severe distress Results - Labs CBC & Chem 7: 04/16/18 03:51 04/19/18 04:40 Labs: Laboratory Last Values WBC 10.1 K/mm3 (4.5-11.0) 04/16/18 03:51 RBC 3.72 M/mm3 (3.65-5.03) 04/16/18 03:51 Hgb 11.8 gm/dl (10.1-14.3) 04/16/18 03:51 Hct 36.4 % (30.3-42.9) 04/16/18 03:51 MCV 98 fl (79-97) H 04/16/18 03:51 MCH 32 pg (28-32) 04/16/18 03:51 MCHC 33 % (30-34) 04/16/18 03:51 RDW 15.5 % (13.2-15.2) H 04/16/18 03:51 Plt Count 156 K/mm3 (140-440) 04/16/18 03:51 Lymph % (Auto) 9.3 % (13.4-35.0) L 04/14/18 08:01 [place] % (Auto) 5.6 % (0.0-7.3) 04/14/18 08:01 Eos % (Auto) 0.7 % (0.0-4.3) 04/14/18 08:01 Baso % (Auto) 0.6 % (0.0-1.8) 04/14/18 08:01 Lymph # 0.7 K/mm3 (1.2-5.4) L 04/14/18 08:01 [place] # 0.4 K/mm3 (0.0-0.8) 04/14/18 08:01 Eos # 0.1 K/mm3 (0.0-0.4) 04/14/18 08:01 Baso # 0.0 K/mm3 (0.0-0.1) 04/14/18 08:01 Seg Neutrophils % 83.8 % (40.0-70.0) H 04/14/18 08:01 Seg Neutrophils # 6.4 K/mm3 (1.8-7.7) 04/14/18 08:01 PT 14.3 Sec. (12.2-14.9) 04/13/18 13:41 INR 1.07 (0.87-1.13) 04/13/18 13:41 APTT 28.9 Sec. (24.2-36.6) 04/13/18 13:41 Thrombin Time 17.3 Sec. (15.1-19.6) 04/13/18 13:41 POC ABG pH 7.308 (7.35-7.45) L 04/17/18 20:40 POC ABG pCO2 31.3 (35-45) L 04/17/18 20:40 POC ABG pO2 61 (80-105) L 04/17/18 20:40 POC ABG HCO3 15.7 04/17/18 20:40 POC ABG Total CO2 17 04/17/18 20:40 POC ABG O2 Sat 89 04/17/18 20:40 POC ABG Base Excess -11 04/17/18 20:40 FiO2 30 % 04/17/18 20:40 Sodium 140 mmol/L (137-145) 04/19/18 04:40 Potassium 3.6 mmol/L (3.6-5.0) 04/19/18 04:40 Chloride 103.5 mmol/L (98-107) 04/19/18 04:40 Carbon Dioxide 19 mmol/L (22-30) L 04/19/18 04:40 Anion Gap 21 mmol/L 04/19/18 04:40 BUN 56 mg/dL (7-17) H 04/19/18 04:40 Creatinine 4.2 mg/dL (0.7-1.2) H 04/19/18 04:40 Estimated GFR 12 ml/min 04/19/18 04:40 BUN/Creatinine Ratio 13 % 04/19/18 04:40 Glucose 84 mg/dL (65-100) 04/19/18 04:40 POC Glucose 79 (70-105) 04/19/18 05:23 Lactic Acid 1.10 mmol/L (0.7-2.0) 04/13/18 16:23 Calcium 8.4 mg/dL (8.4-10.2) 04/19/18 04:40 Phosphorus 4.90 mg/dL (2.5-4.5) H 04/14/18 08:01 Magnesium 1.90 mg/dL (1.7-2.3) 04/14/18 08:01 Total Bilirubin 0.60 mg/dL (0.1-1.2) 04/14/18 08:01 Direct Bilirubin 0.2 mg/dL (0-0.2) 04/13/18 13:59 Indirect Bilirubin 0.3 mg/dL 04/13/18 13:59 AST 14 units/L (5-40) 04/14/18 08:01 ALT 7 units/L (7-56) 04/14/18 08:01 Alkaline Phosphatase 106 units/L (35-129) 04/14/18 08:01 Ammonia 47.0 umol/L (25-60) 04/16/18 11:17 Total Creatine Kinase 92 units/L (30-135) 04/13/18 13:59 CK-MB (CK-2) 3.7 ng/mL (0.0-4.0) 04/13/18 13:59 CK-MB (CK-2) Rel Index 4.0 (0-4) 04/13/18 13:59 Troponin T 0.010 ng/mL (0.00-0.029) 04/13/18 13:59 NT-Pro-B Natriuret Pep 27040 pg/mL (0-450) H 04/13/18 13:59 Total Protein 6.0 g/dL (6.3-8.2) L 04/14/18 08:01 Albumin 2.6 g/dL (3.9-5) L 04/14/18 08:01 Albumin/Globulin Ratio 0.8 % 04/14/18 08:01 Lipase 44 units/L (13-60) 04/13/18 13:59 Urine Color Diane (Yellow) 04/13/18 14:26 Urine Turbidity Cloudy (Clear) 04/13/18 14:26 Urine pH 5.0 (5.0-7.0) 04/13/18 14:26 Ur Specific [place] 1.017 (1.003-1.030) 04/13/18 14:26 Urine Protein >500 mg/dL (Negative) 04/13/18 14:26 Urine Glucose (UA) >=500 mg/dL (Negative) 04/13/18 14:26 Urine Ketones Neg mg/dL (Negative) 04/13/18 14:26 Urine Blood Neg (Negative) 04/13/18 14:26 Urine Nitrite Neg (Negative) 04/13/18 14:26 Urine Bilirubin Neg (Negative) 04/13/18 14:26 Urine Urobilinogen < 2.0 mg/dL (<2.0) 04/13/18 14:26 Ur Leukocyte Esterase Neg (Negative) 04/13/18 14:26 Urine WBC (Auto) 22.0 /HPF (0.0-6.0) H 04/13/18 14:26 Urine RBC (Auto) 17.0 /HPF (0.0-6.0) 04/13/18 14:26 U Epithel Cells (Auto) 3.0 /HPF (0-13.0) 04/13/18 14:26 Urine Bacteria (Auto) 4+ /HPF (Negative) 04/13/18 14:26 Urine Mucus Few /HPF 04/13/18 14:26 Urine Yeast (Budding) 3+ /HPF 04/13/18 14:26 Urine Eosinophils 7% (None Seen) 04/14/18 11:23 Urine Creatinine 85.5 mg/dL (0.1-20.0) H 04/14/18 11:23 Protein/Creatinin Ratio 1.78 04/14/18 11:23 Urine Sodium 82 mmol/L 04/14/18 11:23 Fraction Sodium Excret 2.3 04/14/18 11:23 Urine Total Protein 152 mg/dL (5-11.8) H 04/14/18 11:23 Urine Opiates Screen Presumptive negative 04/13/18 14:26 Urine Methadone Screen Presumptive negative 04/13/18 14:26 Ur Barbiturates Screen Presumptive negative 04/13/18 14:26 Levetiracetam 37.6 mcg/mL 04/13/18 19:19 Ur Phencyclidine Scrn Presumptive negative 04/13/18 14:26 Ur Amphetamines Screen Presumptive negative 04/13/18 14:26 U Benzodiazepines Scrn Presumptive negative 04/13/18 14:26 Urine Cocaine Screen Presumptive negative 04/13/18 14:26 U Marijuana (THC) Screen Presumptive negative 04/13/18 14:26 Drugs of Abuse Note Disclamer 04/13/18 14:26 Proteinase 3 (PR3) Ab <1.0 AI (<1.0) 04/14/18 11:56 Myeloperoxidase Ab <1.0 AI (<1.0) 04/14/18 11:56 Double Strand DNA Ab <1 IU/mL (<=4) 04/14/18 11:56 Complement C3 155 mg/dL (83-193) 04/14/18 11:56 Complement C4 28 mg/dL (15-57) 04/14/18 11:56 Hepatitis A IgM Ab Non-reactive (NonReactive) 04/14/18 11:56 Hep Bs Antigen Non-reactive (Negative) 04/14/18 11:56 Hep B Core IgM Ab Non-reactive (NonReactive) 04/14/18 11:56 Hepatitis C Antibody Non-reactive (NonReactive) 04/14/18 11:56 Nutrition/Malnutrition Assess - Dietary Evaluation Nutrition/Malnutrition Findings: Nutrition Notes Start: 04/14/18 09:47 Freq: Status: Active Protocol: Document 04/18/18 13:39 KH (Rec: 04/18/18 14:06 BRYAN [email or web address]) Co-Sign 04/18/18 13:39 OL Nutrition Notes Initial or Follow up Reassessment Current Diagnosis CKD(stage I-IV) COPD Diabetes Hypertension Heart Failure Respiratory Failure Stroke Other Pertinent Diagnosis Hx of seizures, Wounds on R and L LE, fungal rash on groin and ischial fold Current Diet Vital High Protein at 70ml/hr Labs/Tests K: 3.5 BUN: 51 Cr: 4.3 Glu: 63 Pertinent Medications Reviewed. Height 5 ft 8 in Weight 102.058 kg [place] Body Weight (lbs) 140.0 BMI 34.2 Weight Status Obese Subjective/Other Information Pt f/u for TF initiation and toleration. TF initiated around 09:30am per pt RN. Observed Vital High Protein at 10ml/hr. Burn Absent Trauma Absent #2 Nutrition Diagnosis Increased nutrient needs ( specify in comment below) Diagnosis Progress(for reassessment Continues documentation) #1 Nutrition Diagnosis Inadequate oral intake Diagnosis Progress(for reassessment Continues documentation) Is patient on ventilator? Yes Is Patient Ambulatory and/or Out of Bed No REE-([place]-confined to bed) 1.800 Kcal/Kg value to use for calculation 14 Approximate Energy Requirements Using 1429 kcal/Kg Calculation Used for Recommendations Kcal/kg Additional Notes IBW:64 KG Protein needs are 128g (2g/kg IBW) Fluid needs are 1ml/kcal or per MD Nutrition Intervention Nutrition Support: Vital High Protein at 70ml/hr with water flush of 50ml q4h Kcal 1,680 Protein (gm) 147 Fluid (mL) 1,704 Goal #1 TF tolerance Anticipated Discharge Needs: Unable to determine at this time Follow-Up By: 04/20/18 Additional Comments F/U for TF goal rate and tolerance, K labs for possible switch to [place].
[2018-04-19] MEDS: DUONEB *Not for PRN Use IH SCH ×2 (15:08→19:38)
[2018-04-19] MEDS ORDERED: AFLURIA QUAD 2018-2019 SYRINGE IM ONE (16:50)
[2018-04-19] MEDS: UNASYN/NS 3 GM/100 ML 3 GM/100 ML BAG IV SCH ×2 (18:38→23:52)
[2018-04-19] MEDS: APRESOLINE IV PRN (18:45)
--- NOTE | 2018-04-19 19:26 | Physician Progress Note ---
NEUROLOGY PROGRESS NOTE SUBJECTIVE: The patient was being seen neurologically because of seizure, possible stroke. The stroke was described to be tonic-clonic. The seizure is now controlled. She is on anticonvulsant. The patient has multiple medical problems, myocardial infarction, congestive heart failure, diabetes, COPD, pulmonary hypertension, renal failure. OBJECTIVE: PHYSICAL EXAMINATION: Today the pulse rate is variable, but varying from 80-100. The patient is intubated. Oximetry is 100. Blood pressure has improved now 140/70. Eyes closed; however, she would open her eyes when asked to. She also would follow verbal commands when asked in [place]ese. She squeezed my hands, moving her legs. ASSESSMENT: Seizure, most likely multifactorial. The patient is a very sick patient, has multiple medical problems, which is contributing to her status right now. However, being intubated like this seems to be helping. PLAN: Continue the same medical management. Pulmonary care, especially with intubation ____ congestive heart failure. Continue treatment of seizures. Overall, prognosis looks poor. Continuing care by the next [facility] neurologist. JOB# [id number] MARIANNA/GOVIND
[2018-04-20] MEDS: DUONEB *Not for PRN Use IH SCH ×4 (01:16→19:27)
[2018-04-20 05:22] LABS: Calcium 7.8 mg/dL (8.4-10.2)
[2018-04-20] MEDS: APRESOLINE PO SCH ×3 (05:48→22:43)
--- NOTE | 2018-04-20 07:14 | XRay Report ---
FINAL REPORT PROCEDURE: XR CHEST 1V AP TECHNIQUE: Chest radiograph anteroposterior view. CPT 67656 HISTORY: follow up respiratory failure COMPARISON: 04/19/2018 FINDINGS: Heart: The heart is enlarged Mediastinum/Vessels: Normal. Lungs/Pleural space: There are bilateral perihilar pulmonary infiltrates slightly increased from the prior study. There is no pleural effusion or pneumothorax.. Bony thorax: No acute osseous abnormality. Life support devices: There is an endotracheal tube in the mid trachea. The NG tube is in the stomach .. IMPRESSION: The heart is enlarged There are bilateral perihilar pulmonary infiltrates slightly increased from the prior study. There is no pleural effusion or pneumothorax.. There is an endotracheal tube in the mid trachea. The NG tube is in the stomach.. .
--- NOTE | 2018-04-20 11:13 | Progress Note ---
Subjective Principal diagnosis: Acute respiratory failure, secondary to seizure episode. Chronic kidney di Interval history: Patient was seen today for follow-up of multiple renal related issues resting comfortably in bed Interdisciplinary notes that also reviewed Events of 24 hours vitals labs intake output medications were reviewed Past medical history: Reviewed Family history: Reviewed Social history: Reviewed Allergies: Reviewed Physical examination: Vitals: Reviewed HEENT: No pallor or icterus oral mucosa moist Neck: Supple no JVD no thyromegaly Chest: Bilateral clear to auscultation anteriorly Heart: Regular rate and rhythm S1-S2 heard no S3-S4 Abdomen: Soft nontender no voluntary guarding rigidity rebound Extremity: Dry skin less than 1+ peripheral edema Psychiatric: No evidence of agitation and aggression noted Dermatology: No petechial rashes Labs and x-rays: Reviewed from today Assessment and plan Acute on chronic renal failure: No emergent indication for renal replacement therapy function appears to be stable patient is currently nonoliguric and his volume with diuretics only of this time Respiratory failure currently ventilator dependent with history of underlying COPD as well as pulmonary hypertension From dialysis standpoint her potassium was 2.6 bicarbonate 19 BUN 56 creatinine 4.2 and calcium is 8.4, last hemoglobin was 11.8 Will order for follow-up labs tomorrow morning including CBC BMP phosphorus level Blood pressure appears to be satisfactorily controlled Avoid any nephrotoxic medication continue with supportive care no emergent identification for renal replacement therapy today We'll continue to follow and make recommendation for renal standpoint Objective - Vital Signs Vital signs: Vital Signs - 12hr 04/19/18 04/20/18 04/20/18 23:37 00:00 00:40 Temperature 97.4 F L Pulse Rate 103 H 96 H 105 H Pulse Rate [ Anterior Bilateral Throughout] Pulse Rate [ 86 From Monitor] Respiratory 30 H Rate Respiratory Rate [Anterior Bilateral Throughout] Blood Pressure 155/92 148/83 148/83 O2 Sat by Pulse 98 98 Oximetry 04/20/18 04/20/18 04/20/18 01:00 01:17 01:30 Temperature Pulse Rate 81 Pulse Rate [ 77 88 Anterior Bilateral Throughout] Pulse Rate [ From Monitor] Respiratory 21 Rate Respiratory 27 H 22 Rate [Anterior Bilateral Throughout] Blood Pressure 125/72 O2 Sat by Pulse 96 Oximetry 04/20/18 04/20/18 04/20/18 02:00 03:00 04:00 Temperature 98.6 F Pulse Rate 83 80 95 H Pulse Rate [ Anterior Bilateral Throughout] Pulse Rate [ 84 From Monitor] Respiratory 24 18 16 Rate Respiratory Rate [Anterior Bilateral Throughout] Blood Pressure 135/74 143/80 135/78 O2 Sat by Pulse 97 97 97 Oximetry 04/20/18 04/20/18 04/20/18 05:00 05:48 06:00 Temperature Pulse Rate 84 86 101 H Pulse Rate [ Anterior Bilateral Throughout] Pulse Rate [ From Monitor] Respiratory 27 H 17 Rate Respiratory Rate [Anterior Bilateral Throughout] Blood Pressure 143/80 143/76 143/77 O2 Sat by Pulse 97 96 Oximetry 04/20/18 04/20/18 04/20/18 07:00 08:00 08:39 Temperature 99.9 F H Pulse Rate 87 92 H 95 H Pulse Rate [ Anterior Bilateral Throughout] Pulse Rate [ From Monitor] Respiratory 14 22 34 H Rate Respiratory Rate [Anterior Bilateral Throughout] Blood Pressure 129/75 143/81 143/82 O2 Sat by Pulse 96 92 95 Oximetry 04/20/18 04/20/18 09:44 10:06 Temperature Pulse Rate Pulse Rate [ 96 H 89 Anterior Bilateral Throughout] Pulse Rate [ From Monitor] Respiratory Rate Respiratory 28 H 28 H Rate [Anterior Bilateral Throughout] Blood Pressure O2 Sat by Pulse Oximetry - Lab 04/16/18 03:51 04/20/18 04:39 Most recent lab results Calcium 7.8 mg/dL (8.4-10.2) L 04/20/18 04:39 Phosphorus 4.90 mg/dL (2.5-4.5) H 04/14/18 08:01 Magnesium 1.90 mg/dL (1.7-2.3) 04/14/18 08:01 Urine Creatinine 85.5 mg/dL (0.1-20.0) H 04/14/18 11:23 Urine Sodium 82 mmol/L 04/14/18 11:23 Urine Total Protein 152 mg/dL (5-11.8) H 04/14/18 11:23 Medications & Allergies - Medications Allergies/Adverse Reactions: Allergies No Known Allergies Allergy (Verified 04/17/18 10:03) Home Medications: Home Medications Medication Instructions Recorded Confirmed Last Taken Type Lispro Insulin [Humalog] 15 unit SQ BID 07/17/17 02/17/18 02/16/18 History Aspirin EC [Aspirin Enteric Coated 81 mg PO QDAY #30 tablet 07/22/17 02/17/18 02/17/18 Rx TAB] 81mg Insulin NPH, Human [NovoLIN N] 15 unit SUB-Q BID 12/02/17 12/02/17 12/01/17 History Lantus 45 units SUB-Q QHS 12/02/17 12/02/17 11/30/17 History Labetalol [Normodyne TAB] 200 mg PO BID #60 tablet 12/04/17 Unknown Rx Sulfamethoxazole/Trimethoprim 1 each PO BID #14 tablet 12/04/17 Unknown Rx [Bactrim DS TAB] amLODIPine [Norvasc] 10 mg PO QDAY #30 tablet 12/04/17 Unknown Rx Apixaban [Eliquis] 2.5 mg PO BID 60 Days tablet 02/22/18 Unknown Rx AtorvaSTATin [Lipitor] 20 mg PO QHS #30 tablet 02/22/18 Unknown Rx Furosemide [Lasix TAB] 80 mg PO 0600,1800 #30 tablet 02/22/18 Unknown Rx Insulin Glargine,Hum.rec.anlog 20 unit SQ QHS #30 insuln.pen 02/22/18 Unknown Rx [Lantus Solostar] Lisinopril [Zestril TAB] 20 mg PO QDAY #30 tablet 02/22/18 Unknown Rx Lispro Insulin [Humalog] 0 unit SUB-Q ACHS units 02/22/18 Unknown Rx Metoprolol Xl [Metoprolol 25 mg PO QDAY #30 tablet 02/22/18 Unknown Rx SUCCINATE ER TAB] Potassium Chloride [K-Dur] 20 meq PO Q12HR #60 tablet 02/22/18 Unknown Rx hydrALAZINE [Apresoline TAB] 25 mg PO TID #90 tablet 02/22/18 Unknown Rx levETIRAcetam [Keppra TAB] 500 mg PO BID #90 tablet 02/22/18 Unknown Rx oxyCODONE /ACETAMINOPHEN [Percocet 1 tab PO Q6H PRN #30 tablet 02/22/18 Unknown Rx 5/325 mg] Active Medications: Generic Name Dose Route Start Last Admin Trade Name Freq PRN Reason Stop Dose Admin Albuterol 2.5 mg 04/13/18 14:57 Proventil IH Q3H PRN Shortness Of Breath Albuterol/Ipratropium 1 ampul 04/19/18 14:00 04/20/18 09:44 Duoneb *Not For Prn Use* IH 1 ampul Q6HRT CECILE Administration Lipase/Protease/Amylase 1 each 04/18/18 08:58 Pancrecharissa Archibald 10,500 Unit FEEDTUBE PRN PRN For Clogged Feeding Tube Apixaban 2.5 mg 04/14/18 18:00 04/19/18 23:36 Eliquis FEEDTUBE 2.5 mg Q12HR CECILE Administration Protocol Dextrose 50 ml 04/14/18 19:05 04/18/18 00:15 D50w (25gm) Syringe IV 50 ml PRN PRN Administration Hypoglycemia Famotidine 20 mg 04/15/18 10:00 04/19/18 12:31 Pepcid PO 20 mg DAILY CECILE Administration Hydralazine HCl 10 mg 04/14/18 16:15 04/19/18 18:45 Apresoline IV 10 mg Q4HR PRN Administration SBP >150 or DBP >90 Hydralazine HCl 25 mg 04/14/18 17:00 04/20/18 05:48 Apresoline PO 25 mg Q8HR CECILE Administration Hydrophilic Ointment 1 applic 04/13/18 13:43 Vaseline Lip Therapy TP Q2HR PRN Dry Lips Propofol 1,000 mg in 100 mls @ 3.062 mls/hr 04/13/18 16:00 04/14/18 16:50 Diprivan 10 Mg/Ml IV 0 mcg/kg/min TITR CECILE 0 mls/hr Titration Protocol 5 MCG/KG/MIN Ampicillin Sodium/Sulbactam Sodium 3 gm in 100 mls @ 200 mls/hr 04/19/18 13:00 04/19/18 23:52 Unasyn/Ns 3 Gm/100 Ml IV 200 mls/hr Q12HR CECILE Administration Protocol Levetiracetam 750 mg 04/15/18 11:00 04/19/18 23:36 Keppra PO 750 mg BID CECILE Administration Lorazepam 2 mg 04/13/18 13:43 04/15/18 23:19 Ativan IV 2 mg Q10MIN PRN Administration Agitation Metoprolol Tartrate 25 mg 04/14/18 11:00 04/19/18 12:29 Lopressor PO 25 mg QDAY CECILE Administration Multi-Ingred Cream/Lotion/Oil/Oint 1 applic 04/13/18 13:43 Artificial Tears Ophth Oint OU Q4HR PRN Dry Eye(s) Simple Syrup 15 ml 04/18/18 08:58 Simple Syrup FEEDTUBE PRN PRN Hypoglycemia Simple Syrup 30 ml 04/18/18 08:58 Simple Syrup FEEDTUBE PRN PRN Hypoglycemia Sodium Bicarbonate 1,300 mg 04/18/18 10:00 04/19/18 23:38 Sodium Bicarbonate PO 1,300 mg BID CECILE Administration Sodium Bicarbonate 325 mg 04/18/18 08:58 Sodium Bicarbonate FEEDTUBE PRN PRN For Clogged Feeding Tube Sodium Chloride 10 ml 04/13/18 22:00 04/19/18 12:34 Sodium Chloride Flush Syringe 10 Ml IV 10 ml BID CECILE Administration Sodium Chloride 10 ml 04/13/18 14:57 04/17/18 05:42 Sodium Chloride Flush Syringe 10 Ml IV 10 ml PRN PRN Administration LINE FLUSH
--- NOTE | 2018-04-20 11:13 | Progress Note ---
Subjective Principal diagnosis: Acute respiratory failure, secondary to seizure episode. Chronic kidney di Interval history: Patient was seen today for follow-up of multiple renal related issues remains on ventilator Renal function worsening Patient barely opens her eyes No immediate family member at bedside Events of 24 hours vitals labs intake output medications were reviewed Past medical history: Reviewed Family history: Reviewed Social history: Reviewed Allergies: Reviewed Physical examination: Vitals: Reviewed HEENT: No pallor or icterus oral mucosa moist Neck: Supple no JVD no thyromegaly Chest: bilateral basilar crackles Heart: Regular rate and rhythm S1-S2 heard no S3-S4 Abdomen: Soft nontender no voluntary guarding rigidity rebound Extremity: 2+ peripheral edema Psychiatric: No evidence of agitation and aggression noted Dermatology: No petechial rashes Labs and x-rays: Reviewed from today Assessment and plan Acute renal failure: Worsening renal function and the patient was currently ventilator dependent with generalized peripheral edema metabolic acidosis had a long discussion of patient's brother at length as well as patient's attending physician and the ICU nurse. Patient's brother gives me consent for initiation of renal replacement therapy knowing the risk and benefits of which was explained to the patient's brother and he told me we do not have a choice so we would like to proceed with hemodialysis Have requested the hospital medicine service to consult with vascular surgery so that dialysis catheter can be placed without any further delay Respiratory failure currently ventilator dependent patient does have generalized one to 2+ peripheral edema hemodialysis ultrafiltration may help here A significant amount of time was spent in critical care setting and taking care of this very ill patient, more than 35 minutes was spent in direct patient care We'll continue to follow and make recommendation for renal standpoint Objective - Vital Signs Vital signs: Vital Signs - 12hr 04/19/18 04/20/18 04/20/18 23:37 00:00 00:40 Temperature 97.4 F L Pulse Rate 103 H 96 H 105 H Pulse Rate [ Anterior Bilateral Throughout] Pulse Rate [ 86 From Monitor] Respiratory 30 H Rate Respiratory Rate [Anterior Bilateral Throughout] Blood Pressure 155/92 148/83 148/83 O2 Sat by Pulse 98 98 Oximetry 04/20/18 04/20/18 04/20/18 01:00 01:17 01:30 Temperature Pulse Rate 81 Pulse Rate [ 77 88 Anterior Bilateral Throughout] Pulse Rate [ From Monitor] Respiratory 21 Rate Respiratory 27 H 22 Rate [Anterior Bilateral Throughout] Blood Pressure 125/72 O2 Sat by Pulse 96 Oximetry 04/20/18 04/20/18 04/20/18 02:00 03:00 04:00 Temperature 98.6 F Pulse Rate 83 80 95 H Pulse Rate [ Anterior Bilateral Throughout] Pulse Rate [ 84 From Monitor] Respiratory 24 18 16 Rate Respiratory Rate [Anterior Bilateral Throughout] Blood Pressure 135/74 143/80 135/78 O2 Sat by Pulse 97 97 97 Oximetry 04/20/18 04/20/18 04/20/18 05:00 05:48 06:00 Temperature Pulse Rate 84 86 101 H Pulse Rate [ Anterior Bilateral Throughout] Pulse Rate [ From Monitor] Respiratory 27 H 17 Rate Respiratory Rate [Anterior Bilateral Throughout] Blood Pressure 143/80 143/76 143/77 O2 Sat by Pulse 97 96 Oximetry 04/20/18 04/20/18 04/20/18 07:00 08:00 08:39 Temperature 99.9 F H Pulse Rate 87 92 H 95 H Pulse Rate [ Anterior Bilateral Throughout] Pulse Rate [ From Monitor] Respiratory 14 22 34 H Rate Respiratory Rate [Anterior Bilateral Throughout] Blood Pressure 129/75 143/81 143/82 O2 Sat by Pulse 96 92 95 Oximetry 04/20/18 04/20/18 09:44 10:06 Temperature Pulse Rate Pulse Rate [ 96 H 89 Anterior Bilateral Throughout] Pulse Rate [ From Monitor] Respiratory Rate Respiratory 28 H 28 H Rate [Anterior Bilateral Throughout] Blood Pressure O2 Sat by Pulse Oximetry - Lab 04/16/18 03:51 04/20/18 04:39 Most recent lab results Calcium 7.8 mg/dL (8.4-10.2) L 04/20/18 04:39 Phosphorus 4.90 mg/dL (2.5-4.5) H 04/14/18 08:01 Magnesium 1.90 mg/dL (1.7-2.3) 04/14/18 08:01 Urine Creatinine 85.5 mg/dL (0.1-20.0) H 04/14/18 11:23 Urine Sodium 82 mmol/L 04/14/18 11:23 Urine Total Protein 152 mg/dL (5-11.8) H 04/14/18 11:23 Medications & Allergies - Medications Allergies/Adverse Reactions: Allergies No Known Allergies Allergy (Verified 04/17/18 10:03) Home Medications: Home Medications Medication Instructions Recorded Confirmed Last Taken Type Lispro Insulin [Humalog] 15 unit SQ BID 07/17/17 02/17/18 02/16/18 History Aspirin EC [Aspirin Enteric Coated 81 mg PO QDAY #30 tablet 07/22/17 02/17/18 02/17/18 Rx TAB] 81mg Insulin NPH, Human [NovoLIN N] 15 unit SUB-Q BID 12/02/17 12/02/17 12/01/17 History Lantus 45 units SUB-Q QHS 12/02/17 12/02/17 11/30/17 History Labetalol [Normodyne TAB] 200 mg PO BID #60 tablet 12/04/17 Unknown Rx Sulfamethoxazole/Trimethoprim 1 each PO BID #14 tablet 12/04/17 Unknown Rx [Bactrim DS TAB] amLODIPine [Norvasc] 10 mg PO QDAY #30 tablet 12/04/17 Unknown Rx Apixaban [Eliquis] 2.5 mg PO BID 60 Days tablet 02/22/18 Unknown Rx AtorvaSTATin [Lipitor] 20 mg PO QHS #30 tablet 02/22/18 Unknown Rx Furosemide [Lasix TAB] 80 mg PO 0600,1800 #30 tablet 02/22/18 Unknown Rx Insulin Glargine,Hum.rec.anlog 20 unit SQ QHS #30 insuln.pen 02/22/18 Unknown Rx [Lantus Solostar] Lisinopril [Zestril TAB] 20 mg PO QDAY #30 tablet 02/22/18 Unknown Rx Lispro Insulin [Humalog] 0 unit SUB-Q ACHS units 02/22/18 Unknown Rx Metoprolol Xl [Metoprolol 25 mg PO QDAY #30 tablet 02/22/18 Unknown Rx SUCCINATE ER TAB] Potassium Chloride [K-Dur] 20 meq PO Q12HR #60 tablet 02/22/18 Unknown Rx hydrALAZINE [Apresoline TAB] 25 mg PO TID #90 tablet 02/22/18 Unknown Rx levETIRAcetam [Keppra TAB] 500 mg PO BID #90 tablet 02/22/18 Unknown Rx oxyCODONE /ACETAMINOPHEN [Percocet 1 tab PO Q6H PRN #30 tablet 02/22/18 Unknown Rx 5/325 mg] Active Medications: Generic Name Dose Route Start Last Admin Trade Name Freq PRN Reason Stop Dose Admin Albuterol 2.5 mg 04/13/18 14:57 Proventil IH Q3H PRN Shortness Of Breath Albuterol/Ipratropium 1 ampul 04/19/18 14:00 04/20/18 09:44 Duoneb *Not For Prn Use* IH 1 ampul Q6HRT CECILE Administration Lipase/Protease/Amylase 1 each 04/18/18 08:58 Pancrecharissa Archibald 10,500 Unit FEEDTUBE PRN PRN For Clogged Feeding Tube Apixaban 2.5 mg 04/14/18 18:00 04/19/18 23:36 Eliquis FEEDTUBE 2.5 mg Q12HR CECILE Administration Protocol Dextrose 50 ml 04/14/18 19:05 04/18/18 00:15 D50w (25gm) Syringe IV 50 ml PRN PRN Administration Hypoglycemia Famotidine 20 mg 04/15/18 10:00 04/19/18 12:31 Pepcid PO 20 mg DAILY CECILE Administration Hydralazine HCl 10 mg 04/14/18 16:15 04/19/18 18:45 Apresoline IV 10 mg Q4HR PRN Administration SBP >150 or DBP >90 Hydralazine HCl 25 mg 04/14/18 17:00 04/20/18 05:48 Apresoline PO 25 mg Q8HR CECILE Administration Hydrophilic Ointment 1 applic 04/13/18 13:43 Vaseline Lip Therapy TP Q2HR PRN Dry Lips Propofol 1,000 mg in 100 mls @ 3.062 mls/hr 04/13/18 16:00 04/14/18 16:50 Diprivan 10 Mg/Ml IV 0 mcg/kg/min TITR CECILE 0 mls/hr Titration Protocol 5 MCG/KG/MIN Ampicillin Sodium/Sulbactam Sodium 3 gm in 100 mls @ 200 mls/hr 04/19/18 13:00 04/19/18 23:52 Unasyn/Ns 3 Gm/100 Ml IV 200 mls/hr Q12HR CECILE Administration Protocol Levetiracetam 750 mg 04/15/18 11:00 04/19/18 23:36 Keppra PO 750 mg BID CECILE Administration Lorazepam 2 mg 04/13/18 13:43 04/15/18 23:19 Ativan IV 2 mg Q10MIN PRN Administration Agitation Metoprolol Tartrate 25 mg 04/14/18 11:00 04/19/18 12:29 Lopressor PO 25 mg QDAY CECILE Administration Multi-Ingred Cream/Lotion/Oil/Oint 1 applic 04/13/18 13:43 Artificial Tears Ophth Oint OU Q4HR PRN Dry Eye(s) Simple Syrup 15 ml 04/18/18 08:58 Simple Syrup FEEDTUBE PRN PRN Hypoglycemia Simple Syrup 30 ml 04/18/18 08:58 Simple Syrup FEEDTUBE PRN PRN Hypoglycemia Sodium Bicarbonate 1,300 mg 04/18/18 10:00 04/19/18 23:38 Sodium Bicarbonate PO 1,300 mg BID CECILE Administration Sodium Bicarbonate 325 mg 04/18/18 08:58 Sodium Bicarbonate FEEDTUBE PRN PRN For Clogged Feeding Tube Sodium Chloride 10 ml 04/13/18 22:00 04/19/18 12:34 Sodium Chloride Flush Syringe 10 Ml IV 10 ml BID CECILE Administration Sodium Chloride 10 ml 04/13/18 14:57 04/17/18 05:42 Sodium Chloride Flush Syringe 10 Ml IV 10 ml PRN PRN Administration LINE FLUSH
--- NOTE | 2018-04-20 11:49 | Progress Note ---
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 Diabetes mellitus complication status: with kidney complications Diabetes mellitus complication detail: with chronic kidney disease Chronic kidney disease stage: stage 4 (severe) Qualified Code(s): E11.22 - Type 2 diabetes mellitus with diabetic chronic kidney disease; N18.4 - Chronic kidney disease, stage 4 ( severe); Z79.4 - MCC (current) use of insulin (6) Encephalopathy Current Visit: Yes Status: Acute (7) Kidney disease, chronic, stage IV (GFR 15-29 ml/min) Current Visit: Yes Status: Acute (8) Pulmonary edema Current Visit: Yes Status: Acute Qualifiers: Chronicity: acute Qualified Code(s): J81.0 - Acute pulmonary edema Subjective Principal diagnosis: Acute respiratory failure, secondary to seizure episode. Chronic kidney di Interval history: on vent more responsive Objective Vital Signs - 12hr 04/20/18 04/20/18 04/20/18 00:00 00:40 01:00 Temperature 97.4 F L Pulse Rate 96 H 105 H 81 Pulse Rate [ Anterior Bilateral Throughout] Pulse Rate [ 86 From Monitor] Respiratory 30 H 21 Rate Respiratory Rate [Anterior Bilateral Throughout] Blood Pressure 148/83 148/83 125/72 O2 Sat by Pulse 98 98 96 Oximetry 04/20/18 04/20/18 04/20/18 01:17 01:30 02:00 Temperature Pulse Rate 83 Pulse Rate [ 77 88 Anterior Bilateral Throughout] Pulse Rate [ From Monitor] Respiratory 24 Rate Respiratory 27 H 22 Rate [Anterior Bilateral Throughout] Blood Pressure 135/74 O2 Sat by Pulse 97 Oximetry 04/20/18 04/20/18 04/20/18 03:00 04:00 05:00 Temperature 98.6 F Pulse Rate 80 95 H 84 Pulse Rate [ Anterior Bilateral Throughout] Pulse Rate [ 84 From Monitor] Respiratory 18 16 27 H Rate Respiratory Rate [Anterior Bilateral Throughout] Blood Pressure 143/80 135/78 143/80 O2 Sat by Pulse 97 97 97 Oximetry 04/20/18 04/20/18 04/20/18 05:48 06:00 07:00 Temperature Pulse Rate 86 101 H 87 Pulse Rate [ Anterior Bilateral Throughout] Pulse Rate [ From Monitor] Respiratory 17 14 Rate Respiratory Rate [Anterior Bilateral Throughout] Blood Pressure 143/76 143/77 129/75 O2 Sat by Pulse 96 96 Oximetry 04/20/18 04/20/18 04/20/18 08:00 08:39 09:00 Temperature 99.9 F H Pulse Rate 92 H 95 H 90 Pulse Rate [ Anterior Bilateral Throughout] Pulse Rate [ From Monitor] Respiratory 22 34 H 31 H Rate Respiratory Rate [Anterior Bilateral Throughout] Blood Pressure 143/81 143/82 155/96 O2 Sat by Pulse 92 95 95 Oximetry 04/20/18 04/20/18 04/20/18 09:44 10:00 10:06 Temperature Pulse Rate 91 H Pulse Rate [ 96 H 89 Anterior Bilateral Throughout] Pulse Rate [ From Monitor] Respiratory 43 H Rate Respiratory 28 H 28 H Rate [Anterior Bilateral Throughout] Blood Pressure 150/86 O2 Sat by Pulse 96 Oximetry 04/20/18 11:00 Temperature Pulse Rate 80 Pulse Rate [ Anterior Bilateral Throughout] Pulse Rate [ From Monitor] Respiratory 25 H Rate Respiratory Rate [Anterior Bilateral Throughout] Blood Pressure 153/84 O2 Sat by Pulse 98 Oximetry Constitutional: no acute distress, other (on vent 30% ac 450 p6) ENT: other (orally intubated and sedated) Neck: no JVD Effort: normal Ascultation: Bilateral: clear Percussion: Bilateral: not dull Cardiovascular: regular rate and rhythm Gastrointestinal: normoactive bowel sounds, soft, non-tender Extremities: no edema, pink and warm, pulses normal Neurologic: unable to assess, other (RASS -1) CBC and BMP: 04/16/18 03:51 04/20/18 04:39 ABG, PT/INR, D-dimer: ABG POC ABG pH 7.308 (7.35-7.45) L 04/17/18 20:40 POC ABG pCO2 31.3 (35-45) L 04/17/18 20:40 POC ABG pO2 61 (80-105) L 04/17/18 20:40 POC ABG HCO3 15.7 04/17/18 20:40 POC ABG Total CO2 17 04/17/18 20:40 POC ABG O2 Sat 89 04/17/18 20:40 PT/INR, D-dimer PT 14.3 Sec. (12.2-14.9) 04/13/18 13:41 INR 1.07 (0.87-1.13) 04/13/18 13:41 Abnormal lab findings: Abnormal Labs 04/13/18 04/13/18 04/13/18 13:41 13:59 13:59 WBC MCV 103 H RDW 16.8 H Lymph % (Auto) Lymph # Seg Neutrophils % 73.1 H POC ABG pH POC ABG pCO2 POC ABG pO2 Sodium 136 L Potassium Carbon Dioxide 13 L BUN 30 H Creatinine 4.0 H Glucose 210 H POC Glucose Lactic Acid 3.10 H* Calcium 8.1 L Phosphorus Alkaline Phosphatase 130 H Ammonia NT-Pro-B Natriuret Pep 04434 H Total Protein Albumin 2.9 L Urine WBC (Auto) Urine Creatinine Urine Total Protein 04/13/18 04/13/18 04/13/18 13:59 14:07 14:26 WBC MCV RDW Lymph % (Auto) Lymph # Seg Neutrophils % POC ABG pH 7.262 L POC ABG pCO2 32.8 L POC ABG pO2 Sodium Potassium Carbon Dioxide BUN Creatinine Glucose POC Glucose Lactic Acid Calcium Phosphorus Alkaline Phosphatase Ammonia 65.0 H NT-Pro-B Natriuret Pep Total Protein Albumin Urine WBC (Auto) 22.0 H Urine Creatinine Urine Total Protein 04/13/18 04/14/18 04/14/18 14:30 05:06 08:01 WBC MCV 98 H RDW 15.9 H Lymph % (Auto) 9.3 L Lymph # 0.7 L Seg Neutrophils % 83.8 H POC ABG pH POC ABG pCO2 31.8 L POC ABG pO2 127 H Sodium Potassium Carbon Dioxide BUN Creatinine Glucose POC Glucose 181 H Lactic Acid Calcium Phosphorus Alkaline Phosphatase Ammonia NT-Pro-B Natriuret Pep Total Protein Albumin Urine WBC (Auto) Urine Creatinine Urine Total Protein 04/14/18 04/14/18 04/14/18 08:01 11:23 11:23 WBC MCV RDW Lymph % (Auto) Lymph # Seg Neutrophils % POC ABG pH POC ABG pCO2 POC ABG pO2 Sodium Potassium Carbon Dioxide 18 L BUN 30 H Creatinine 4.1 H 3.9 H Glucose POC Glucose Lactic Acid Calcium 8.1 L Phosphorus 4.90 H Alkaline Phosphatase Ammonia NT-Pro-B Natriuret Pep Total Protein 6.0 L Albumin 2.6 L Urine WBC (Auto) Urine Creatinine 85.5 H Urine Total Protein 152 H 04/14/18 04/14/18 04/15/18 19:04 23:37 03:17 WBC 11.3 H MCV RDW 15.7 H Lymph % (Auto) Lymph # Seg Neutrophils % POC ABG pH POC ABG pCO2 POC ABG pO2 Sodium Potassium Carbon Dioxide BUN Creatinine Glucose POC Glucose 69 L 65 L Lactic Acid Calcium Phosphorus Alkaline Phosphatase Ammonia NT-Pro-B Natriuret Pep Total Protein Albumin Urine WBC (Auto) Urine Creatinine Urine Total Protein 04/15/18 04/15/18 04/15/18 03:17 05:27 05:29 WBC MCV RDW Lymph % (Auto) Lymph # Seg Neutrophils % POC ABG pH POC ABG pCO2 29.8 L POC ABG pO2 Sodium Potassium Carbon Dioxide 18 L BUN 33 H Creatinine 4.1 H Glucose 63 L POC Glucose 66 L Lactic Acid Calcium 8.1 L Phosphorus Alkaline Phosphatase Ammonia NT-Pro-B Natriuret Pep Total Protein Albumin Urine WBC (Auto) Urine Creatinine Urine Total Protein 04/15/18 04/15/18 04/15/18 08:50 09:32 11:38 WBC MCV RDW Lymph % (Auto) Lymph # Seg Neutrophils % POC ABG pH POC ABG pCO2 POC ABG pO2 Sodium Potassium Carbon Dioxide BUN Creatinine Glucose POC Glucose 64 L 114 H 69 L Lactic Acid Calcium Phosphorus Alkaline Phosphatase Ammonia NT-Pro-B Natriuret Pep Total Protein Albumin Urine WBC (Auto) Urine Creatinine Urine Total Protein 04/16/18 04/16/18 04/17/18 03:51 03:51 04:33 WBC MCV 98 H RDW 15.5 H Lymph % (Auto) Lymph # Seg Neutrophils % POC ABG pH POC ABG pCO2 28.0 L POC ABG pO2 106 H Sodium Potassium Carbon Dioxide 19 L BUN 39 H Creatinine 4.2 H Glucose POC Glucose Lactic Acid Calcium 8.1 L Phosphorus Alkaline Phosphatase Ammonia NT-Pro-B Natriuret Pep Total Protein Albumin Urine WBC (Auto) Urine Creatinine Urine Total Protein 04/17/18 04/17/18 04/17/18 06:10 09:45 17:16 WBC MCV RDW Lymph % (Auto) Lymph # Seg Neutrophils % POC ABG pH POC ABG pCO2 POC ABG pO2 Sodium Potassium Carbon Dioxide 17 L BUN 47 H Creatinine 4.4 H Glucose 143 H 127 H POC Glucose 128 H Lactic Acid Calcium 8.3 L Phosphorus Alkaline Phosphatase Ammonia NT-Pro-B Natriuret Pep Total Protein Albumin Urine WBC (Auto) Urine Creatinine Urine Total Protein 04/17/18 04/17/18 04/18/18 20:40 23:56 00:06 WBC MCV RDW Lymph % (Auto) Lymph # Seg Neutrophils % POC ABG pH 7.308 L POC ABG pCO2 31.3 L POC ABG pO2 61 L Sodium Potassium Carbon Dioxide BUN Creatinine Glucose POC Glucose 45 L 47 L Lactic Acid Calcium Phosphorus Alkaline Phosphatase Ammonia NT-Pro-B Natriuret Pep Total Protein Albumin Urine WBC (Auto) Urine Creatinine Urine Total Protein 04/18/18 04/19/18 04/19/18 04:30 04:40 12:30 WBC MCV RDW Lymph % (Auto) Lymph # Seg Neutrophils % POC ABG pH POC ABG pCO2 POC ABG pO2 Sodium Potassium 3.5 L Carbon Dioxide 17 L 19 L BUN 51 H 56 H Creatinine 4.3 H 4.2 H Glucose 63 L POC Glucose 61 L Lactic Acid Calcium 8.0 L Phosphorus Alkaline Phosphatase Ammonia NT-Pro-B Natriuret Pep Total Protein Albumin Urine WBC (Auto) Urine Creatinine Urine Total Protein 04/20/18 04/20/18 04:39 11:35 WBC MCV RDW Lymph % (Auto) Lymph # Seg Neutrophils % POC ABG pH POC ABG pCO2 POC ABG pO2 Sodium Potassium 3.5 L Carbon Dioxide 18 L BUN 63 H Creatinine 4.8 H Glucose 101 H POC Glucose 114 H Lactic Acid Calcium 7.8 L Phosphorus Alkaline Phosphatase Ammonia NT-Pro-B Natriuret Pep Total Protein Albumin Urine WBC (Auto) Urine Creatinine Urine Total Protein
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
[2018-04-20] MEDS ORDERED: NACL 0.9% 100 ML IV PRN (15:14)
[2018-04-20] MEDS ORDERED: SODIUM BICARBONATE FEEDTUBE PRN (15:56)
[2018-04-20] MEDS ORDERED: PANCREAZE DR 10,500 UNIT FEEDTUBE PRN (15:56)
[2018-04-20] MEDS ORDERED: SIMPLE SYRUP FEEDTUBE PRN ×2 (15:56)
--- NOTE | 2018-04-20 16:41 | Operative Report ---
Operative Report Operative Report: Date of procedure: 04/20/2018 Pre-operative diagnosis: Acute on chronic renal failure Post-operative diagnosis: Same. Procedure name(s): Insertion of Vas-Cath right internal jugular vein, duplex guided cannulation right IJV Surgeon: Joseph Escudero MD Environmental Services Assistant: None Anesthesia: Local EBL: None Specimen(s): none Complications:none Findings: vascath ready for use CXR pending Procedure: Patient in the supine position with the head was rotated to the left, the right anterior neck and chest were prepped and draped using standard sterile technique. A duplex scan was brought into the surgical field in a sterile fashion and the internal jugular vein was identified. It was patent. The skin overlying that vessel was anesthetized and a standard cannulation needle was inserted under real-time imaging and observed to penetrate the anterior wall of the internal jugular vein. Intraluminal position was confirmed with aspiration. A guidewire was advanced into the superior vena cava. The cannulation needle was removed. The tract was then dilated and a standard 15 cm Medcomp pre-curved Vas-Cath was inserted using Seldinger technique and advanced into the superior vena cava at approximately the second intercostal space. Guidewire was removed and all limbs were aspirated flushed and primed with sterile saline. The catheter was anchored to the skin using suture. Bio- disc was placed. Sterile dressing was applied. Confirmatory chest x-ray is pending. Patient was returned to the supine position in stable condition.
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
--- NOTE | 2018-04-20 18:02 | XRay Report ---
FINAL REPORT EXAM: XR CHEST 1V AP HISTORY: line placement vas cath TECHNIQUE: Chest AP view PRIORS: None. FINDINGS: There is feeding tube present. Distal end overlies the body of the stomach. There has been placement a right IJ central venous catheter with catheter tip at the SVC. ET tube is in satisfactory position Bilateral pulmonary vascular congestion with the patchy interstitial opacities unchanged from prior e xam. No new abnormality identified. No evidence for pneumothorax post catheter placement IMPRESSION: Right IJ catheter and other life-support devices appear in satisfactory position Findings most suggestive of CHF unchanged
[2018-04-20 21:28] LABS: Albumin 2.4 g/dL (3.8-4.8); Gamma Globulin 1.2 g/dL (0.8-1.7)
[2018-04-20] MEDS ORDERED: NACL 0.9 (PRIMING MACHINE ONLY DIALYSIS) MC ONE (22:31)
[2018-04-20] MEDS: SODIUM BICARBONATE PO SCH ×2 (22:42→22:53)
[2018-04-20] MEDS: KEPPRA PO SCH ×2 (22:42→22:52)
[2018-04-20] MEDS: SODIUM CHLORIDE FLUSH SYRINGE 10 ML IV SCH ×2 (22:43→22:52)
[2018-04-20] MEDS: ELIQUIS FEEDTUBE SCH ×2 (22:50→22:55)
[2018-04-20] MEDS: UNASYN/NS 3 GM/100 ML 3 GM/100 ML BAG IV SCH ×2 (22:50)
[2018-04-21] MEDS: DUONEB *Not for PRN Use IH SCH ×4 (03:19→19:35)
[2018-04-21 04:14] LABS: Calcium 8.4 mg/dL (8.4-10.2)
[2018-04-21] MEDS: APRESOLINE PO SCH ×4 (06:38→22:31)
[2018-04-21] MEDS: SODIUM CHLORIDE FLUSH SYRINGE 10 ML IV SCH ×3 (10:02→22:32)
[2018-04-21] MEDS: UNASYN/NS 3 GM/100 ML 3 GM/100 ML BAG IV SCH ×2 (10:15→22:33)
[2018-04-21] MEDS: ELIQUIS FEEDTUBE SCH ×3 (10:17→22:32)
[2018-04-21] MEDS: PEPCID PO SCH ×2 (10:18→10:20)
[2018-04-21] MEDS: LOPRESSOR PO SCH ×2 (10:18→10:25)
[2018-04-21] MEDS: KEPPRA PO SCH ×2 (10:19→22:32)
[2018-04-21] MEDS: SODIUM BICARBONATE PO SCH ×3 (10:20→22:32)
--- NOTE | 2018-04-21 11:01 | Progress Note ---
Assessment and Plan - Patient Problems (1) Acute and chronic respiratory failure ([id number]) Current Visit: Yes Status: Acute (2) ARF (acute renal failure) with tubular necrosis Current Visit: Yes Status: Acute Plan to address problem: sp HD on 04/20 (3) Acidosis Current Visit: Yes Status: Acute (4) DVT prophylaxis Current Visit: Yes Status: Acute (5) Diabetes type 2, controlled Current Visit: Yes Status: Acute Qualifiers: Diabetes mellitus technician terminal and repeater insulin use: with technician terminal and repeater use Diabetes mellitus complication status: with kidney complications Diabetes mellitus complication detail: with chronic kidney disease Chronic kidney disease stage: stage 4 (severe) Qualified Code(s): E11.22 - Type 2 diabetes mellitus with diabetic chronic kidney disease; N18.4 - Chronic kidney disease, stage 4 (severe); Z79.4 - alf (current) use of insulin (6) Encephalopathy Current Visit: Yes Status: Acute Plan to address problem: improving (7) Kidney disease, chronic, stage IV (GFR 15-29 ml/min) Current Visit: Yes Status: Acute (8) Pulmonary edema Current Visit: Yes Status: Acute Qualifiers: Chronicity: acute Qualified Code(s): J81.0 - Acute pulmonary edema Subjective Principal diagnosis: Acute respiratory failure, secondary to seizure episode. Chronic kidney di Interval history: sp hd yesterday more responsive today follows commands Objective Vital Signs - 12hr 04/20/18 04/20/18 04/20/18 23:00 23:25 23:26 Temperature Pulse Rate 92 H 88 89 Pulse Rate [ Anterior Bilateral Throughout] Pulse Rate [ From Monitor] Respiratory 27 H 24 Rate Respiratory Rate [Anterior Bilateral Throughout] Blood Pressure 154/88 152/86 152/86 O2 Sat by Pulse 97 99 99 Oximetry 04/21/18 04/21/18 04/21/18 00:00 01:00 02:00 Temperature 98.0 F Pulse Rate 107 H 84 83 Pulse Rate [ Anterior Bilateral Throughout] Pulse Rate [ 107 H From Monitor] Respiratory 29 H 11 L 16 Rate Respiratory Rate [Anterior Bilateral Throughout] Blood Pressure 134/77 147/80 147/74 O2 Sat by Pulse 95 98 96 Oximetry 04/21/18 04/21/18 04/21/18 03:00 03:20 03:21 Temperature Pulse Rate 87 86 Pulse Rate [ 86 Anterior Bilateral Throughout] Pulse Rate [ From Monitor] Respiratory 22 Rate Respiratory 22 Rate [Anterior Bilateral Throughout] Blood Pressure 138/77 147/70 O2 Sat by Pulse 99 100 Oximetry 04/21/18 04/21/18 04/21/18 03:30 04:00 05:00 Temperature 99.6 F Pulse Rate 107 H 86 Pulse Rate [ 95 H Anterior Bilateral Throughout] Pulse Rate [ 107 H From Monitor] Respiratory 15 19 Rate Respiratory 22 Rate [Anterior Bilateral Throughout] Blood Pressure 143/77 136/68 O2 Sat by Pulse 97 97 Oximetry 04/21/18 04/21/18 04/21/18 06:00 06:38 07:00 Temperature Pulse Rate 84 84 87 Pulse Rate [ Anterior Bilateral Throughout] Pulse Rate [ From Monitor] Respiratory 17 22 Rate Respiratory Rate [Anterior Bilateral Throughout] Blood Pressure 126/65 120/66 122/71 O2 Sat by Pulse 97 97 Oximetry Constitutional: no acute distress, other (on vent 30% ac 450 p6) ENT: oropharynx moist, other (orally intubated and sedated) Neck: no JVD Effort: normal Ascultation: Bilateral: clear Percussion: Bilateral: not dull Cardiovascular: regular rate and rhythm Gastrointestinal: normoactive bowel sounds, soft, non-tender Extremities: no edema, pink and warm, pulses normal Neurologic: unable to assess, other (RASS -1) CBC and BMP: 04/16/18 03:51 04/21/18 03:18 ABG, PT/INR, D-dimer: ABG POC ABG pH 7.308 (7.35-7.45) L 04/17/18 20:40 POC ABG pCO2 31.3 (35-45) L 04/17/18 20:40 POC ABG pO2 61 (80-105) L 04/17/18 20:40 POC ABG HCO3 15.7 04/17/18 20:40 POC ABG Total CO2 17 04/17/18 20:40 POC ABG O2 Sat 89 04/17/18 20:40 PT/INR, D-dimer PT 14.3 Sec. (12.2-14.9) 04/13/18 13:41 INR 1.07 (0.87-1.13) 04/13/18 13:41 Abnormal lab findings: Abnormal Labs 04/13/18 04/13/18 04/13/18 13:41 13:59 13:59 WBC MCV 103 H RDW 16.8 H Lymph % (Auto) Lymph # Seg Neutrophils % 73.1 H POC ABG pH POC ABG pCO2 POC ABG pO2 Sodium 136 L Potassium Carbon Dioxide 13 L BUN 30 H Creatinine 4.0 H Glucose 210 H POC Glucose Lactic Acid 3.10 H* Calcium 8.1 L Phosphorus Alkaline Phosphatase 130 H Ammonia NT-Pro-B Natriuret Pep 37894 H Serum Total Protein Total Protein Albumin 2.9 L Yoqyd-5-Sfgvndrdd PEP Interpretation Urine WBC (Auto) Urine Creatinine Urine Total Protein 04/13/18 04/13/18 04/13/18 13:59 14:07 14:26 WBC MCV RDW Lymph % (Auto) Lymph # Seg Neutrophils % POC ABG pH 7.262 L POC ABG pCO2 32.8 L POC ABG pO2 Sodium Potassium Carbon Dioxide BUN Creatinine Glucose POC Glucose Lactic Acid Calcium Phosphorus Alkaline Phosphatase Ammonia 65.0 H NT-Pro-B Natriuret Pep Serum Total Protein Total Protein Albumin Zboon-2-Nudcqkjjk PEP Interpretation Urine WBC (Auto) 22.0 H Urine Creatinine Urine Total Protein 04/13/18 04/14/18 04/14/18 14:30 05:06 08:01 WBC MCV 98 H RDW 15.9 H Lymph % (Auto) 9.3 L Lymph # 0.7 L Seg Neutrophils % 83.8 H POC ABG pH POC ABG pCO2 31.8 L POC ABG pO2 127 H Sodium Potassium Carbon Dioxide BUN Creatinine Glucose POC Glucose 181 H Lactic Acid Calcium Phosphorus Alkaline Phosphatase Ammonia NT-Pro-B Natriuret Pep Serum Total Protein Total Protein Albumin Xgpds-9-Jcpjvyzes PEP Interpretation Urine WBC (Auto) Urine Creatinine Urine Total Protein 04/14/18 04/14/18 04/14/18 08:01 11:23 11:23 WBC MCV RDW Lymph % (Auto) Lymph # Seg Neutrophils % POC ABG pH POC ABG pCO2 POC ABG pO2 Sodium Potassium Carbon Dioxide 18 L BUN 30 H Creatinine 4.1 H 3.9 H Glucose POC Glucose Lactic Acid Calcium 8.1 L Phosphorus 4.90 H Alkaline Phosphatase Ammonia NT-Pro-B Natriuret Pep Serum Total Protein Total Protein 6.0 L Albumin 2.6 L Nbwlz-6-Fdgbffjjf PEP Interpretation Urine WBC (Auto) Urine Creatinine 85.5 H Urine Total Protein 152 H 04/14/18 04/14/18 04/15/18 19:04 23:37 03:17 WBC MCV RDW Lymph % (Auto) Lymph # Seg Neutrophils % POC ABG pH POC ABG pCO2 POC ABG pO2 Sodium Potassium Carbon Dioxide BUN Creatinine Glucose POC Glucose 69 L 65 L Lactic Acid Calcium Phosphorus Alkaline Phosphatase Ammonia NT-Pro-B Natriuret Pep Serum Total Protein 5.6 L Total Protein Albumin 2.4 L Mlrhr-4-Vvxrhxgyr 0.4 H PEP Interpretation see below H Urine WBC (Auto) Urine Creatinine Urine Total Protein 04/15/18 04/15/18 04/15/18 03:17 03:17 05:27 WBC 11.3 H MCV RDW 15.7 H Lymph % (Auto) Lymph # Seg Neutrophils % POC ABG pH POC ABG pCO2 POC ABG pO2 Sodium Potassium Carbon Dioxide 18 L BUN 33 H Creatinine 4.1 H Glucose 63 L POC Glucose 66 L Lactic Acid Calcium 8.1 L Phosphorus Alkaline Phosphatase Ammonia NT-Pro-B Natriuret Pep Serum Total Protein Total Protein Albumin Gtxrd-0-Msewskuvc PEP Interpretation Urine WBC (Auto) Urine Creatinine Urine Total Protein 04/15/18 04/15/18 04/15/18 05:29 08:50 09:32 WBC MCV RDW Lymph % (Auto) Lymph # Seg Neutrophils % POC ABG pH POC ABG pCO2 29.8 L POC ABG pO2 Sodium Potassium Carbon Dioxide BUN Creatinine Glucose POC Glucose 64 L 114 H Lactic Acid Calcium Phosphorus Alkaline Phosphatase Ammonia NT-Pro-B Natriuret Pep Serum Total Protein Total Protein Albumin Hlgvm-1-Egahxwnid PEP Interpretation Urine WBC (Auto) Urine Creatinine Urine Total Protein 04/15/18 04/16/18 04/16/18 11:38 03:51 03:51 WBC MCV 98 H RDW 15.5 H Lymph % (Auto) Lymph # Seg Neutrophils % POC ABG pH POC ABG pCO2 POC ABG pO2 Sodium Potassium Carbon Dioxide 19 L BUN 39 H Creatinine 4.2 H Glucose POC Glucose 69 L Lactic Acid Calcium 8.1 L Phosphorus Alkaline Phosphatase Ammonia NT-Pro-B Natriuret Pep Serum Total Protein Total Protein Albumin Egzlp-6-Tlidwwdxz PEP Interpretation Urine WBC (Auto) Urine Creatinine Urine Total Protein 04/17/18 04/17/18 04/17/18 04:33 06:10 09:45 WBC MCV RDW Lymph % (Auto) Lymph # Seg Neutrophils % POC ABG pH POC ABG pCO2 28.0 L POC ABG pO2 106 H Sodium Potassium Carbon Dioxide 17 L BUN 47 H Creatinine 4.4 H Glucose 143 H 127 H POC Glucose Lactic Acid Calcium 8.3 L Phosphorus Alkaline Phosphatase Ammonia NT-Pro-B Natriuret Pep Serum Total Protein Total Protein Albumin Gfzeg-7-Gfnhqyvff PEP Interpretation Urine WBC (Auto) Urine Creatinine Urine Total Protein 04/17/18 04/17/18 04/17/18 17:16 20:40 23:56 WBC MCV RDW Lymph % (Auto) Lymph # Seg Neutrophils % POC ABG pH 7.308 L POC ABG pCO2 31.3 L POC ABG pO2 61 L Sodium Potassium Carbon Dioxide BUN Creatinine Glucose POC Glucose 128 H 45 L Lactic Acid Calcium Phosphorus Alkaline Phosphatase Ammonia NT-Pro-B Natriuret Pep Serum Total Protein Total Protein Albumin Mdvfn-3-Ilpmzjgfg PEP Interpretation Urine WBC (Auto) Urine Creatinine Urine Total Protein 04/18/18 04/18/18 04/19/18 00:06 04:30 04:40 WBC MCV RDW Lymph % (Auto) Lymph # Seg Neutrophils % POC ABG pH POC ABG pCO2 POC ABG pO2 Sodium Potassium 3.5 L Carbon Dioxide 17 L 19 L BUN 51 H 56 H Creatinine 4.3 H 4.2 H Glucose 63 L POC Glucose 47 L Lactic Acid Calcium 8.0 L Phosphorus Alkaline Phosphatase Ammonia NT-Pro-B Natriuret Pep Serum Total Protein Total Protein Albumin Orpnk-0-Ztxuqkvmx PEP Interpretation Urine WBC (Auto) Urine Creatinine Urine Total Protein 04/19/18 04/20/18 04/20/18 12:30 04:39 11:35 WBC MCV RDW Lymph % (Auto) Lymph # Seg Neutrophils % POC ABG pH POC ABG pCO2 POC ABG pO2 Sodium Potassium 3.5 L Carbon Dioxide 18 L BUN 63 H Creatinine 4.8 H Glucose 101 H POC Glucose 61 L 114 H Lactic Acid Calcium 7.8 L Phosphorus Alkaline Phosphatase Ammonia NT-Pro-B Natriuret Pep Serum Total Protein Total Protein Albumin Djmih-5-Qfxwynzmp PEP Interpretation Urine WBC (Auto) Urine Creatinine Urine Total Protein 04/20/18 04/21/18 04/21/18 23:32 03:18 05:41 WBC MCV RDW Lymph % (Auto) Lymph # Seg Neutrophils % POC ABG pH POC ABG pCO2 POC ABG pO2 Sodium Potassium 3.2 L Carbon Dioxide BUN 40 H Creatinine 2.9 H Glucose 145 H POC Glucose 125 H 159 H Lactic Acid Calcium Phosphorus Alkaline Phosphatase Ammonia NT-Pro-B Natriuret Pep Serum Total Protein Total Protein Albumin Hjasy-0-Teczdyrax PEP Interpretation Urine WBC (Auto) Urine Creatinine Urine Total Protein Chest x-ray: report reviewed, image reviewed
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
--- NOTE | 2018-04-21 15:25 | Progress Note ---
Assessment and Plan - Patient Problems (1) ARF (acute renal failure) with tubular necrosis Current Visit: Yes Status: Acute Plan to address problem: temporary access stable, can convert to permacath if watermaster access needed. Subjective Date of service: 04/21/18 Principal diagnosis: Acute respiratory failure, secondary to seizure episode. Chronic kidney di Interval history: vascath function ok Objective - Exam Narrative Exam: site dry. - Constitutional Vitals: Vital Signs - 12hr 04/21/18 04/21/18 04/21/18 03:30 04:00 05:00 Temperature 99.6 F Pulse Rate 107 H 86 Pulse Rate [ 95 H Anterior Bilateral Throughout] Pulse Rate [ 107 H From Monitor] Respiratory 15 19 Rate Respiratory 22 Rate [Anterior Bilateral Throughout] Blood Pressure 143/77 136/68 O2 Sat by Pulse 97 97 Oximetry 04/21/18 04/21/18 04/21/18 06:00 06:38 07:00 Temperature Pulse Rate 84 84 87 Pulse Rate [ Anterior Bilateral Throughout] Pulse Rate [ From Monitor] Respiratory 17 22 Rate Respiratory Rate [Anterior Bilateral Throughout] Blood Pressure 126/65 120/66 122/71 O2 Sat by Pulse 97 97 Oximetry 04/21/18 04/21/18 09:25 11:26 Temperature Pulse Rate 87 78 Pulse Rate [ Anterior Bilateral Throughout] Pulse Rate [ From Monitor] Respiratory 31 H Rate Respiratory Rate [Anterior Bilateral Throughout] Blood Pressure 122/71 157/70 O2 Sat by Pulse 98 97 Oximetry - Labs CBC & Chem 7: 04/16/18 03:51 04/21/18 03:18 Labs: Abnormal lab results 04/15/18 04/20/18 04/21/18 Range/Units 03:17 23:32 03:18 Potassium 3.2 L (3.6-5.0) mmol/L BUN 40 H (7-17) mg/dL Creatinine 2.9 H (0.7-1.2) mg/dL Glucose 145 H (65-100) mg/dL POC Glucose 125 H (70-105) Serum Total Protein 5.6 L (6.1-8.1) g/dL Albumin 2.4 L (3.8-4.8) g/dL [id number] 0.4 H (0.2-0.3) g/dL PEP Interpretation see below H 04/21/18 04/21/18 Range/Units 05:41 08:32 Potassium (3.6-5.0) mmol/L BUN (7-17) mg/dL Creatinine (0.7-1.2) mg/dL Glucose (65-100) mg/dL POC Glucose 159 H 128 H (70-105) Serum Total Protein (6.1-8.1) g/dL Albumin (3.8-4.8) g/dL [id number] (0.2-0.3) g/dL PEP Interpretation Medications & Allergies - Medications Allergies/Adverse Reactions: Allergies No Known Allergies Allergy (Verified 04/17/18 10:03) Home Medications: Home Medications Medication Instructions Recorded Confirmed Last Taken Type Lispro Insulin [Humalog] 15 unit SQ BID 07/17/17 02/17/18 02/16/18 History Aspirin EC [Aspirin Enteric Coated 81 mg PO QDAY #30 tablet 07/22/17 02/17/18 02/17/18 Rx TAB] 81mg Insulin NPH, Human [NovoLIN N] 15 unit SUB-Q BID 12/02/17 12/02/17 12/01/17 History Lantus 45 units SUB-Q QHS 12/02/17 12/02/17 11/30/17 History Labetalol [Normodyne TAB] 200 mg PO BID #60 tablet 12/04/17 Unknown Rx Sulfamethoxazole/Trimethoprim 1 each PO BID #14 tablet 12/04/17 Unknown Rx [Bactrim DS TAB] amLODIPine [Norvasc] 10 mg PO QDAY #30 tablet 12/04/17 Unknown Rx Apixaban [Eliquis] 2.5 mg PO BID 60 Days tablet 02/22/18 Unknown Rx AtorvaSTATin [Lipitor] 20 mg PO QHS #30 tablet 02/22/18 Unknown Rx Furosemide [Lasix TAB] 80 mg PO 0600,1800 #30 tablet 02/22/18 Unknown Rx Insulin Glargine,Hum.rec.anlog 20 unit SQ QHS #30 insuln.pen 02/22/18 Unknown Rx [Lantus Solostar] Lisinopril [Zestril TAB] 20 mg PO QDAY #30 tablet 02/22/18 Unknown Rx Lispro Insulin [Humalog] 0 unit SUB-Q ACHS units 02/22/18 Unknown Rx Metoprolol Xl [Metoprolol 25 mg PO QDAY #30 tablet 02/22/18 Unknown Rx SUCCINATE ER TAB] Potassium Chloride [K-Dur] 20 meq PO Q12HR #60 tablet 02/22/18 Unknown Rx hydrALAZINE [Apresoline TAB] 25 mg PO TID #90 tablet 02/22/18 Unknown Rx levETIRAcetam [Keppra TAB] 500 mg PO BID #90 tablet 02/22/18 Unknown Rx oxyCODONE /ACETAMINOPHEN [Percocet 1 tab PO Q6H PRN #30 tablet 02/22/18 Unknown Rx 5/325 mg] Active Medications: Generic Name Dose Route Start Last Admin Trade Name Freq PRN Reason Stop Dose Admin Albuterol 2.5 mg 04/13/18 14:57 Proventil IH Q3H PRN Shortness Of Breath Albuterol/Ipratropium 1 ampul 04/19/18 14:00 04/21/18 09:40 Duoneb *Not For Prn Use* IH 1 ampul Q6HRT CECILE Administration Lipase/Protease/Amylase 1 each 04/18/18 08:58 Pancreazmalissa Archibald 10,500 Unit FEEDTUBE PRN PRN For Clogged Feeding Tube Apixaban 2.5 mg 04/14/18 18:00 04/21/18 10:17 Eliquis FEEDTUBE 2.5 mg Q12HR CECILE Administration Protocol Dextrose 50 ml 04/14/18 19:05 04/18/18 00:15 D50w (25gm) Syringe IV 50 ml PRN PRN Administration Hypoglycemia Famotidine 20 mg 04/15/18 10:00 04/21/18 10:18 Pepcid PO 20 mg DAILY CECILE Administration Hydralazine HCl 10 mg 04/14/18 16:15 04/19/18 18:45 Apresoline IV 10 mg Q4HR PRN Administration SBP >150 or DBP >90 Hydralazine HCl 25 mg 04/14/18 17:00 04/21/18 06:38 Apresoline PO 25 mg Q8HR CECILE Administration Hydrophilic Ointment 1 applic 04/13/18 13:43 Vaseline Lip Therapy TP Q2HR PRN Dry Lips Propofol 1,000 mg in 100 mls @ 3.062 mls/hr 04/13/18 16:00 04/14/18 16:50 Diprivan 10 Mg/Ml IV 0 mcg/kg/min TITR CECILE 0 mls/hr Titration Protocol 5 MCG/KG/MIN Ampicillin Sodium/Sulbactam Sodium 3 gm in 100 mls @ 200 mls/hr 04/19/18 13:00 04/21/18 10:15 Unasyn/Ns 3 Gm/100 Ml IV 200 mls/hr Q12HR CECILE Administration Protocol Sodium Chloride 100 mls @ 999 mls/hr 04/20/18 15:14 Nacl 0.9% IV MIRI PRN Hypotension Levetiracetam 750 mg 04/15/18 11:00 04/21/18 10:19 Keppra PO 750 mg BID CECILE Administration Lorazepam 2 mg 04/13/18 13:43 04/15/18 23:19 Ativan IV 2 mg Q10MIN PRN Administration Agitation Metoprolol Tartrate 25 mg 04/14/18 11:00 04/21/18 10:18 Lopressor PO 25 mg QDAY CECILE Administration Multi-Ingred Cream/Lotion/Oil/Oint 1 applic 04/13/18 13:43 Artificial Tears Ophth Oint OU Q4HR PRN Dry Eye(s) Simple Syrup 15 ml 04/18/18 08:58 Simple Syrup FEEDTUBE PRN PRN Hypoglycemia Simple Syrup 30 ml 04/18/18 08:58 Simple Syrup FEEDTUBE PRN PRN Hypoglycemia Sodium Bicarbonate 1,300 mg 04/18/18 10:00 04/21/18 10:42 Sodium Bicarbonate PO 1,300 mg BID CECILE Administration Sodium Bicarbonate 325 mg 04/18/18 08:58 Sodium Bicarbonate FEEDTUBE PRN PRN For Clogged Feeding Tube Sodium Chloride 10 ml 04/13/18 22:00 04/21/18 10:18 Sodium Chloride Flush Syringe 10 Ml IV 10 ml BID CECILE Administration Sodium Chloride 10 ml 04/13/18 14:57 04/17/18 05:42 Sodium Chloride Flush Syringe 10 Ml IV 10 ml PRN PRN Administration LINE FLUSH
[2018-04-22] MEDS: DUONEB *Not for PRN Use IH SCH ×4 (02:14→20:25)
[2018-04-22 04:24] LABS: Calcium 7.6 mg/dL (8.4-10.2)
[2018-04-22] MEDS: APRESOLINE PO SCH ×3 (06:34→22:47)
--- NOTE | 2018-04-22 09:39 | Progress Note ---
Subjective Principal diagnosis: Acute respiratory failure, secondary to seizure episode. Chronic kidney di Interval history: Patient was seen today for follow-up of multiple renal related issues Patient noted to be hypokalemic Events of 24 hours noted Interdisciplinary Notes were also reviewed Physical examination: Gen.: No acute distress HEENT: Neck: Supple no JVD Chest: bilateral basilar crackles Heart: Regular rate and rhythm S1-S2 heard no S3-S4 Abdomen: Soft nontender no voluntary guarding rigidity rebound Extremity: 2+ peripheral edema Psychiatric: No evidence of agitation and aggression noted Dermatology: No petechial rashes Labs and x-rays: Reviewed from today Assessment and plan Acute kidney injury in a patient who is in need for ongoing dialysis for solute clearance, volume removal, patient will need hemodialysis treatment today for approximately 3-1/2 hours targeting about 2-3 kg of fluid as tolerated Patient will need total of 40 mEq of potassium today discussed with pharmacy Bill total dose will be 40 mEq altogether Will order dialysis after reviewing her labs from today Etiology of renal failure appears to be due to ATN given the clinical scenario Ultrasonogram shows small bilateral renal calculi Both lower extremity wound superficial Multiple comorbidities underlying including CVA, diabetes, seizure Has history of stage IV chronic kidney disease underlying History of coronary artery disease with PCI likely patient does have underlying renovascular disease Hypokalemia patient needs potassium replacement Metabolic acidosis has been corrected bicarbonate is currently around 24 Patient does need basic labs including a CBC, phosphorus level Respiratory failure We'll continue to follow and make recommendation for renal standpoint Objective - Vital Signs Vital signs: Vital Signs - 12hr 04/21/18 04/21/18 04/21/18 22:00 22:05 22:31 Temperature Pulse Rate 90 83 Pulse Rate [ Anterior Bilateral Throughout] Pulse Rate [ 88 From Monitor] Respiratory 24 24 Rate Respiratory Rate [Anterior Bilateral Throughout] Blood Pressure 153/76 142/67 O2 Sat by Pulse 98 99 Oximetry 04/21/18 04/21/18 04/21/18 23:00 23:18 23:25 Temperature Pulse Rate 84 86 88 Pulse Rate [ Anterior Bilateral Throughout] Pulse Rate [ From Monitor] Respiratory 25 H 22 Rate Respiratory Rate [Anterior Bilateral Throughout] Blood Pressure 141/72 130/76 130/76 O2 Sat by Pulse 95 98 97 Oximetry 04/22/18 04/22/18 04/22/18 00:00 01:00 02:00 Temperature 98.8 F Pulse Rate 81 83 87 Pulse Rate [ Anterior Bilateral Throughout] Pulse Rate [ 84 87 From Monitor] Respiratory 20 22 21 Rate Respiratory Rate [Anterior Bilateral Throughout] Blood Pressure 136/73 142/76 143/74 O2 Sat by Pulse 95 97 Oximetry 04/22/18 04/22/18 04/22/18 02:14 02:32 03:00 Temperature Pulse Rate 101 H Pulse Rate [ 82 109 H Anterior Bilateral Throughout] Pulse Rate [ From Monitor] Respiratory 21 Rate Respiratory 22 22 Rate [Anterior Bilateral Throughout] Blood Pressure 135/68 O2 Sat by Pulse 98 Oximetry 04/22/18 04/22/18 04/22/18 03:18 03:53 04:00 Temperature 98.3 F Pulse Rate 87 85 Pulse Rate [ Anterior Bilateral Throughout] Pulse Rate [ 82 From Monitor] Respiratory 25 H Rate Respiratory Rate [Anterior Bilateral Throughout] Blood Pressure 137/71 143/77 O2 Sat by Pulse 99 95 Oximetry 04/22/18 04/22/18 04/22/18 05:00 06:00 06:34 Temperature Pulse Rate 82 87 79 Pulse Rate [ Anterior Bilateral Throughout] Pulse Rate [ From Monitor] Respiratory 20 26 H Rate Respiratory Rate [Anterior Bilateral Throughout] Blood Pressure 141/75 139/79 133/73 O2 Sat by Pulse 96 Oximetry 04/22/18 04/22/18 04/22/18 07:00 08:00 09:15 Temperature 97.9 F Pulse Rate 85 82 83 Pulse Rate [ Anterior Bilateral Throughout] Pulse Rate [ 80 From Monitor] Respiratory 20 16 Rate Respiratory Rate [Anterior Bilateral Throughout] Blood Pressure 124/85 132/68 149/83 O2 Sat by Pulse 97 94 99 Oximetry 04/22/18 04/22/18 09:18 09:21 Temperature Pulse Rate 83 Pulse Rate [ 83 Anterior Bilateral Throughout] Pulse Rate [ From Monitor] Respiratory 23 Rate Respiratory 20 Rate [Anterior Bilateral Throughout] Blood Pressure 149/83 O2 Sat by Pulse 96 Oximetry - Lab 04/16/18 03:51 04/22/18 03:44 Most recent lab results Calcium 7.6 mg/dL (8.4-10.2) L 04/22/18 03:44 Phosphorus 4.90 mg/dL (2.5-4.5) H 04/14/18 08:01 Magnesium 1.90 mg/dL (1.7-2.3) 04/14/18 08:01 Urine Creatinine 85.5 mg/dL (0.1-20.0) H 04/14/18 11:23 Urine Sodium 82 mmol/L 04/14/18 11:23 Urine Total Protein 152 mg/dL (5-11.8) H 04/14/18 11:23 Medications & Allergies - Medications Allergies/Adverse Reactions: Allergies No Known Allergies Allergy (Verified 04/17/18 10:03) Home Medications: Home Medications Medication Instructions Recorded Confirmed Last Taken Type Lispro Insulin [Humalog] 15 unit SQ BID 07/17/17 02/17/18 02/16/18 History Aspirin EC [Aspirin Enteric Coated 81 mg PO QDAY #30 tablet 07/22/17 02/17/18 02/17/18 Rx TAB] 81mg Insulin NPH, Human [NovoLIN N] 15 unit SUB-Q BID 12/02/17 12/02/17 12/01/17 History Lantus 45 units SUB-Q QHS 12/02/17 12/02/17 11/30/17 History Labetalol [Normodyne TAB] 200 mg PO BID #60 tablet 12/04/17 Unknown Rx Sulfamethoxazole/Trimethoprim 1 each PO BID #14 tablet 12/04/17 Unknown Rx [Bactrim DS TAB] amLODIPine [Norvasc] 10 mg PO QDAY #30 tablet 12/04/17 Unknown Rx Apixaban [Eliquis] 2.5 mg PO BID 60 Days tablet 02/22/18 Unknown Rx AtorvaSTATin [Lipitor] 20 mg PO QHS #30 tablet 02/22/18 Unknown Rx Furosemide [Lasix TAB] 80 mg PO 0600,1800 #30 tablet 02/22/18 Unknown Rx Insulin Glargine,Hum.rec.anlog 20 unit SQ QHS #30 insuln.pen 02/22/18 Unknown Rx [Lantus Solostar] Lisinopril [Zestril TAB] 20 mg PO QDAY #30 tablet 02/22/18 Unknown Rx Lispro Insulin [Humalog] 0 unit SUB-Q ACHS units 02/22/18 Unknown Rx Metoprolol Xl [Metoprolol 25 mg PO QDAY #30 tablet 02/22/18 Unknown Rx SUCCINATE ER TAB] Potassium Chloride [K-Dur] 20 meq PO Q12HR #60 tablet 02/22/18 Unknown Rx hydrALAZINE [Apresoline TAB] 25 mg PO TID #90 tablet 02/22/18 Unknown Rx levETIRAcetam [Keppra TAB] 500 mg PO BID #90 tablet 02/22/18 Unknown Rx oxyCODONE /ACETAMINOPHEN [Percocet 1 tab PO Q6H PRN #30 tablet 02/22/18 Unknown Rx 5/325 mg] Active Medications: Generic Name Dose Route Start Last Admin Trade Name Freq PRN Reason Stop Dose Admin Albuterol 2.5 mg 04/13/18 14:57 Proventil IH Q3H PRN Shortness Of Breath Albuterol/Ipratropium 1 ampul 04/19/18 14:00 04/22/18 09:21 Duoneb *Not For Prn Use* IH 1 ampul Q6HRT CECILE Administration Lipase/Protease/Amylase 1 each 04/18/18 08:58 Pancreazmalissa Archibald 10,500 Unit FEEDTUBE PRN PRN For Clogged Feeding Tube Apixaban 2.5 mg 04/14/18 18:00 04/21/18 22:32 Eliquis FEEDTUBE 2.5 mg Q12HR CECILE Administration Protocol Dextrose 50 ml 04/14/18 19:05 04/18/18 00:15 D50w (25gm) Syringe IV 50 ml PRN PRN Administration Hypoglycemia Famotidine 20 mg 04/15/18 10:00 04/21/18 10:20 Pepcid PO 20 mg DAILY CECILE Administration Hydralazine HCl 10 mg 04/14/18 16:15 04/19/18 18:45 Apresoline IV 10 mg Q4HR PRN Administration SBP >150 or DBP >90 Hydralazine HCl 25 mg 04/14/18 17:00 04/22/18 06:34 Apresoline PO 25 mg Q8HR CECILE Administration Hydrophilic Ointment 1 applic 04/13/18 13:43 Vaseline Lip Therapy TP Q2HR PRN Dry Lips Propofol 1,000 mg in 100 mls @ 3.062 mls/hr 04/13/18 16:00 04/14/18 16:50 Diprivan 10 Mg/Ml IV 0 mcg/kg/min TITR CECILE 0 mls/hr Titration Protocol 5 MCG/KG/MIN Ampicillin Sodium/Sulbactam Sodium 3 gm in 100 mls @ 200 mls/hr 04/19/18 13:00 04/21/18 22:33 Unasyn/Ns 3 Gm/100 Ml IV 200 mls/hr Q12HR CECILE Administration Protocol Sodium Chloride 100 mls @ 999 mls/hr 04/20/18 15:14 Nacl 0.9% IV MIRI PRN Hypotension Levetiracetam 750 mg 04/15/18 11:00 04/21/18 22:32 Keppra PO 750 mg BID CECILE Administration Metoprolol Tartrate 25 mg 04/14/18 11:00 04/21/18 10:25 Lopressor PO 25 mg QDAY CECILE Administration Multi-Ingred Cream/Lotion/Oil/Oint 1 applic 04/13/18 13:43 Artificial Tears Ophth Oint OU Q4HR PRN Dry Eye(s) Simple Syrup 15 ml 04/18/18 08:58 Simple Syrup FEEDTUBE PRN PRN Hypoglycemia Simple Syrup 30 ml 04/18/18 08:58 Simple Syrup FEEDTUBE PRN PRN Hypoglycemia Sodium Bicarbonate 1,300 mg 04/18/18 10:00 04/21/18 22:32 Sodium Bicarbonate PO 1,300 mg BID CECILE Administration Sodium Bicarbonate 325 mg 04/18/18 08:58 Sodium Bicarbonate FEEDTUBE PRN PRN For Clogged Feeding Tube Sodium Chloride 10 ml 04/13/18 22:00 04/21/18 22:32 Sodium Chloride Flush Syringe 10 Ml IV 10 ml BID CECILE Administration Sodium Chloride 10 ml 04/13/18 14:57 04/17/18 05:42 Sodium Chloride Flush Syringe 10 Ml IV 10 ml PRN PRN Administration LINE FLUSH
[2018-04-22] MEDS ORDERED: KCL 20MEQ/100ML 20 MEQ/100 ML BAG IV SCH (10:00)
[2018-04-22] MEDS: UNASYN/NS 3 GM/100 ML 3 GM/100 ML BAG IV SCH ×2 (10:28→22:51)
[2018-04-22] MEDS: KEPPRA PO SCH ×2 (10:29→22:46)
[2018-04-22] MEDS: LOPRESSOR PO SCH ×2 (10:31→22:50)
[2018-04-22] MEDS: KCL 10MEQ/100ML 10 MEQ/100 ML BAG IV SCH ×4 (10:32→15:10)
[2018-04-22] MEDS: PEPCID PO SCH (10:32)
[2018-04-22] MEDS: ELIQUIS FEEDTUBE SCH ×2 (10:32→22:49)
[2018-04-22] MEDS: SODIUM CHLORIDE FLUSH SYRINGE 10 ML IV SCH ×2 (10:34→22:49)
[2018-04-22 11:05] LABS: Basophils % (Auto) 0.4 % (0.0-1.8); Eosinophils # (Auto) 0.1 K/mm3 (0.0-0.4); Eosinophils % (Auto) 0.6 % (0.0-4.3); Hematocrit 28.6 % (30.3-42.9); Hemoglobin 9.4 gm/dl (10.1-14.3); Lymphocytes # (Auto) 0.6 K/mm3 (1.2-5.4); Lymphocytes % (Auto) 5.7 % (13.4-35.0); Mean Corpuscular HGB Conc 33 % (30-34); Mean Corpuscular Volume 97 fl (79-97); Monocytes # (Auto) 0.5 K/mm3 (0.0-0.8); Monocytes % (Auto) 4.6 % (0.0-7.3); Platelet Count 129 K/mm3 (140-440); Red Blood Count 2.95 M/mm3 (3.65-5.03); Red Cell Distribution Width 15.2 % (13.2-15.2)
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
[2018-04-22] MEDS ORDERED: LASIX IV ONE (11:54)
--- NOTE | 2018-04-22 11:57 | Progress Note ---
Assessment and Plan 42 y/o female with acute respiratory failure, secondary to post-ictal state from seizure. 1. Extubate 2. Lasix 40mg IV x1 3. Decrease keppra to 500 BID 4. ordered Bipap PRN CCT 31 minutes. Subjective Date of service: 04/22/18 Principal diagnosis: Acute respiratory failure, secondary to seizure episode. Chronic kidney di Interval history: Awake and alert. Off sedation. Follows commands. Objective Vital Signs - 12hr 04/22/18 04/22/18 04/22/18 00:00 01:00 02:00 Temperature 98.8 F Pulse Rate 81 83 87 Pulse Rate [ Anterior Bilateral Throughout] Pulse Rate [ 84 87 From Monitor] Respiratory 20 22 21 Rate Respiratory Rate [Anterior Bilateral Throughout] Blood Pressure 136/73 142/76 143/74 O2 Sat by Pulse 95 97 Oximetry 04/22/18 04/22/18 04/22/18 02:14 02:32 03:00 Temperature Pulse Rate 101 H Pulse Rate [ 82 109 H Anterior Bilateral Throughout] Pulse Rate [ From Monitor] Respiratory 21 Rate Respiratory 22 22 Rate [Anterior Bilateral Throughout] Blood Pressure 135/68 O2 Sat by Pulse 98 Oximetry 04/22/18 04/22/18 04/22/18 03:18 03:53 04:00 Temperature 98.3 F Pulse Rate 87 85 Pulse Rate [ Anterior Bilateral Throughout] Pulse Rate [ 82 From Monitor] Respiratory 25 H Rate Respiratory Rate [Anterior Bilateral Throughout] Blood Pressure 137/71 143/77 O2 Sat by Pulse 99 95 Oximetry 04/22/18 04/22/18 04/22/18 05:00 06:00 06:34 Temperature Pulse Rate 82 87 79 Pulse Rate [ Anterior Bilateral Throughout] Pulse Rate [ From Monitor] Respiratory 20 26 H Rate Respiratory Rate [Anterior Bilateral Throughout] Blood Pressure 141/75 139/79 133/73 O2 Sat by Pulse 96 Oximetry 04/22/18 04/22/18 04/22/18 07:00 08:00 09:15 Temperature 97.9 F Pulse Rate 85 82 83 Pulse Rate [ Anterior Bilateral Throughout] Pulse Rate [ 80 From Monitor] Respiratory 20 16 Rate Respiratory Rate [Anterior Bilateral Throughout] Blood Pressure 124/85 132/68 149/83 O2 Sat by Pulse 97 94 99 Oximetry 04/22/18 04/22/18 04/22/18 09:18 09:21 09:53 Temperature Pulse Rate 83 Pulse Rate [ 83 94 H Anterior Bilateral Throughout] Pulse Rate [ From Monitor] Respiratory 23 Rate Respiratory 20 20 Rate [Anterior Bilateral Throughout] Blood Pressure 149/83 O2 Sat by Pulse 96 Oximetry Constitutional: no acute distress, other (on vent 30% ac 450 p6) ENT: oropharynx moist, other (orally intubated and sedated) Neck: no JVD Effort: normal Ascultation: Bilateral: clear Percussion: Bilateral: not dull Cardiovascular: regular rate and rhythm Gastrointestinal: normoactive bowel sounds, soft, non-tender Extremities: no edema, pink and warm, pulses normal Neurologic: unable to assess, other (RASS -1) CBC and BMP: 04/22/18 10:20 04/22/18 03:44 ABG, PT/INR, D-dimer: ABG POC ABG pH 7.308 (7.35-7.45) L 04/17/18 20:40 POC ABG pCO2 31.3 (35-45) L 04/17/18 20:40 POC ABG pO2 61 (80-105) L 04/17/18 20:40 POC ABG HCO3 15.7 04/17/18 20:40 POC ABG Total CO2 17 04/17/18 20:40 POC ABG O2 Sat 89 04/17/18 20:40 PT/INR, D-dimer PT 14.3 Sec. (12.2-14.9) 04/13/18 13:41 INR 1.07 (0.87-1.13) 04/13/18 13:41 Abnormal lab findings: Abnormal Labs 04/13/18 04/13/18 04/13/18 13:41 13:59 13:59 WBC RBC Hgb Hct MCV 103 H RDW 16.8 H Plt Count Lymph % (Auto) Lymph # Seg Neutrophils % 73.1 H Seg Neutrophils # POC ABG pH POC ABG pCO2 POC ABG pO2 Sodium 136 L Potassium Carbon Dioxide 13 L BUN 30 H Creatinine 4.0 H Glucose 210 H POC Glucose Lactic Acid 3.10 H* Calcium 8.1 L Phosphorus Alkaline Phosphatase 130 H Ammonia NT-Pro-B Natriuret Pep 38948 H Serum Total Protein Total Protein Albumin 2.9 L Ntzlv-1-Erbsymfnl PEP Interpretation Urine WBC (Auto) Urine Creatinine Urine Total Protein 04/13/18 04/13/18 04/13/18 13:59 14:07 14:26 WBC RBC Hgb Hct MCV RDW Plt Count Lymph % (Auto) Lymph # Seg Neutrophils % Seg Neutrophils # POC ABG pH 7.262 L POC ABG pCO2 32.8 L POC ABG pO2 Sodium Potassium Carbon Dioxide BUN Creatinine Glucose POC Glucose Lactic Acid Calcium Phosphorus Alkaline Phosphatase Ammonia 65.0 H NT-Pro-B Natriuret Pep Serum Total Protein Total Protein Albumin Nmujp-1-Bedvthgkr PEP Interpretation Urine WBC (Auto) 22.0 H Urine Creatinine Urine Total Protein 04/13/18 04/14/18 04/14/18 14:30 05:06 08:01 WBC RBC Hgb Hct MCV 98 H RDW 15.9 H Plt Count Lymph % (Auto) 9.3 L Lymph # 0.7 L Seg Neutrophils % 83.8 H Seg Neutrophils # POC ABG pH POC ABG pCO2 31.8 L POC ABG pO2 127 H Sodium Potassium Carbon Dioxide BUN Creatinine Glucose POC Glucose 181 H Lactic Acid Calcium Phosphorus Alkaline Phosphatase Ammonia NT-Pro-B Natriuret Pep Serum Total Protein Total Protein Albumin Aysap-9-Whixsdkvu PEP Interpretation Urine WBC (Auto) Urine Creatinine Urine Total Protein 04/14/18 04/14/18 04/14/18 08:01 11:23 11:23 WBC RBC Hgb Hct MCV RDW Plt Count Lymph % (Auto) Lymph # Seg Neutrophils % Seg Neutrophils # POC ABG pH POC ABG pCO2 POC ABG pO2 Sodium Potassium Carbon Dioxide 18 L BUN 30 H Creatinine 4.1 H 3.9 H Glucose POC Glucose Lactic Acid Calcium 8.1 L Phosphorus 4.90 H Alkaline Phosphatase Ammonia NT-Pro-B Natriuret Pep Serum Total Protein Total Protein 6.0 L Albumin 2.6 L Tjygi-0-Iwsmpvlol PEP Interpretation Urine WBC (Auto) Urine Creatinine 85.5 H Urine Total Protein 152 H 04/14/18 04/14/18 04/15/18 19:04 23:37 03:17 WBC RBC Hgb Hct MCV RDW Plt Count Lymph % (Auto) Lymph # Seg Neutrophils % Seg Neutrophils # POC ABG pH POC ABG pCO2 POC ABG pO2 Sodium Potassium Carbon Dioxide BUN Creatinine Glucose POC Glucose 69 L 65 L Lactic Acid Calcium Phosphorus Alkaline Phosphatase Ammonia NT-Pro-B Natriuret Pep Serum Total Protein 5.6 L Total Protein Albumin 2.4 L Mqeok-4-Hptcgdiuz 0.4 H PEP Interpretation see below H Urine WBC (Auto) Urine Creatinine Urine Total Protein 04/15/18 04/15/18 04/15/18 03:17 03:17 05:27 WBC 11.3 H RBC Hgb Hct MCV RDW 15.7 H Plt Count Lymph % (Auto) Lymph # Seg Neutrophils % Seg Neutrophils # POC ABG pH POC ABG pCO2 POC ABG pO2 Sodium Potassium Carbon Dioxide 18 L BUN 33 H Creatinine 4.1 H Glucose 63 L POC Glucose 66 L Lactic Acid Calcium 8.1 L Phosphorus Alkaline Phosphatase Ammonia NT-Pro-B Natriuret Pep Serum Total Protein Total Protein Albumin Ijgws-6-Intrmveqk PEP Interpretation Urine WBC (Auto) Urine Creatinine Urine Total Protein 04/15/18 04/15/18 04/15/18 05:29 08:50 09:32 WBC RBC Hgb Hct MCV RDW Plt Count Lymph % (Auto) Lymph # Seg Neutrophils % Seg Neutrophils # POC ABG pH POC ABG pCO2 29.8 L POC ABG pO2 Sodium Potassium Carbon Dioxide BUN Creatinine Glucose POC Glucose 64 L 114 H Lactic Acid Calcium Phosphorus Alkaline Phosphatase Ammonia NT-Pro-B Natriuret Pep Serum Total Protein Total Protein Albumin Wsckj-8-Mcmudweax PEP Interpretation Urine WBC (Auto) Urine Creatinine Urine Total Protein 04/15/18 04/16/18 04/16/18 11:38 03:51 03:51 WBC RBC Hgb Hct MCV 98 H RDW 15.5 H Plt Count Lymph % (Auto) Lymph # Seg Neutrophils % Seg Neutrophils # POC ABG pH POC ABG pCO2 POC ABG pO2 Sodium Potassium Carbon Dioxide 19 L BUN 39 H Creatinine 4.2 H Glucose POC Glucose 69 L Lactic Acid Calcium 8.1 L Phosphorus Alkaline Phosphatase Ammonia NT-Pro-B Natriuret Pep Serum Total Protein Total Protein Albumin Rppoq-6-Fgkkakcfa PEP Interpretation Urine WBC (Auto) Urine Creatinine Urine Total Protein 04/17/18 04/17/18 04/17/18 04:33 06:10 09:45 WBC RBC Hgb Hct MCV RDW Plt Count Lymph % (Auto) Lymph # Seg Neutrophils % Seg Neutrophils # POC ABG pH POC ABG pCO2 28.0 L POC ABG pO2 106 H Sodium Potassium Carbon Dioxide 17 L BUN 47 H Creatinine 4.4 H Glucose 143 H 127 H POC Glucose Lactic Acid Calcium 8.3 L Phosphorus Alkaline Phosphatase Ammonia NT-Pro-B Natriuret Pep Serum Total Protein Total Protein Albumin Wxjpy-6-Xsjvfzjpr PEP Interpretation Urine WBC (Auto) Urine Creatinine Urine Total Protein 04/17/18 04/17/18 04/17/18 17:16 20:40 23:56 WBC RBC Hgb Hct MCV RDW Plt Count Lymph % (Auto) Lymph # Seg Neutrophils % Seg Neutrophils # POC ABG pH 7.308 L POC ABG pCO2 31.3 L POC ABG pO2 61 L Sodium Potassium Carbon Dioxide BUN Creatinine Glucose POC Glucose 128 H 45 L Lactic Acid Calcium Phosphorus Alkaline Phosphatase Ammonia NT-Pro-B Natriuret Pep Serum Total Protein Total Protein Albumin Rinvu-4-Judpbfxks PEP Interpretation Urine WBC (Auto) Urine Creatinine Urine Total Protein 04/18/18 04/18/18 04/19/18 00:06 04:30 04:40 WBC RBC Hgb Hct MCV RDW Plt Count Lymph % (Auto) Lymph # Seg Neutrophils % Seg Neutrophils # POC ABG pH POC ABG pCO2 POC ABG pO2 Sodium Potassium 3.5 L Carbon Dioxide 17 L 19 L BUN 51 H 56 H Creatinine 4.3 H 4.2 H Glucose 63 L POC Glucose 47 L Lactic Acid Calcium 8.0 L Phosphorus Alkaline Phosphatase Ammonia NT-Pro-B Natriuret Pep Serum Total Protein Total Protein Albumin Wuwfj-3-Atuhqegxz PEP Interpretation Urine WBC (Auto) Urine Creatinine Urine Total Protein 04/19/18 04/20/18 04/20/18 12:30 04:39 11:35 WBC RBC Hgb Hct MCV RDW Plt Count Lymph % (Auto) Lymph # Seg Neutrophils % Seg Neutrophils # POC ABG pH POC ABG pCO2 POC ABG pO2 Sodium Potassium 3.5 L Carbon Dioxide 18 L BUN 63 H Creatinine 4.8 H Glucose 101 H POC Glucose 61 L 114 H Lactic Acid Calcium 7.8 L Phosphorus Alkaline Phosphatase Ammonia NT-Pro-B Natriuret Pep Serum Total Protein Total Protein Albumin Zjuvq-3-Ypmqwntvk PEP Interpretation Urine WBC (Auto) Urine Creatinine Urine Total Protein 04/20/18 04/21/18 04/21/18 23:32 03:18 05:41 WBC RBC Hgb Hct MCV RDW Plt Count Lymph % (Auto) Lymph # Seg Neutrophils % Seg Neutrophils # POC ABG pH POC ABG pCO2 POC ABG pO2 Sodium Potassium 3.2 L Carbon Dioxide BUN 40 H Creatinine 2.9 H Glucose 145 H POC Glucose 125 H 159 H Lactic Acid Calcium Phosphorus Alkaline Phosphatase Ammonia NT-Pro-B Natriuret Pep Serum Total Protein Total Protein Albumin Rgeyh-9-Rooindekw PEP Interpretation Urine WBC (Auto) Urine Creatinine Urine Total Protein 04/21/18 04/21/18 04/21/18 08:32 15:07 16:50 WBC RBC Hgb Hct MCV RDW Plt Count Lymph % (Auto) Lymph # Seg Neutrophils % Seg Neutrophils # POC ABG pH POC ABG pCO2 POC ABG pO2 Sodium Potassium Carbon Dioxide BUN Creatinine Glucose POC Glucose 128 H 128 H 122 H Lactic Acid Calcium Phosphorus Alkaline Phosphatase Ammonia NT-Pro-B Natriuret Pep Serum Total Protein Total Protein Albumin Hdygz-0-Dcaypjxux PEP Interpretation Urine WBC (Auto) Urine Creatinine Urine Total Protein 04/22/18 04/22/18 04/22/18 00:36 03:44 05:20 WBC RBC Hgb Hct MCV RDW Plt Count Lymph % (Auto) Lymph # Seg Neutrophils % Seg Neutrophils # POC ABG pH POC ABG pCO2 POC ABG pO2 Sodium Potassium 3.2 L Carbon Dioxide BUN 53 H Creatinine 3.3 H Glucose 192 H POC Glucose 153 H 190 H Lactic Acid Calcium 7.6 L Phosphorus Alkaline Phosphatase Ammonia NT-Pro-B Natriuret Pep Serum Total Protein Total Protein Albumin Dnwwd-6-Wxhvlgblf PEP Interpretation Urine WBC (Auto) Urine Creatinine Urine Total Protein 04/22/18 04/22/18 07:59 10:20 WBC RBC 2.95 L Hgb 9.4 L Hct 28.6 L MCV RDW Plt Count 129 L Lymph % (Auto) 5.7 L Lymph # 0.6 L Seg Neutrophils % 88.7 H Seg Neutrophils # 9.1 H POC ABG pH POC ABG pCO2 POC ABG pO2 Sodium Potassium Carbon Dioxide BUN Creatinine Glucose POC Glucose 193 H Lactic Acid Calcium Phosphorus Alkaline Phosphatase Ammonia NT-Pro-B Natriuret Pep Serum Total Protein Total Protein Albumin Mzzcf-2-Ivwdjulvn PEP Interpretation Urine WBC (Auto) Urine Creatinine Urine Total Protein
[2018-04-22] MEDS ORDERED: LASIX ONE (16:21)
--- NOTE | 2018-04-22 16:57 | Progress Note ---
Assessment and Plan Assessment and plan: 42-year-old woman who presented after a witnessed seizure. She was intubated, admitted to the ICU. pmh; HTN, Systolic CHF(EF 20%), CVA, DM, Seizure Disorder, COPD, Pulmonary HTN, CAD S/P Stent Placement -She presented, with acute seizures which were intractable. She was intubated and admitted to the ICU, she received antiseizure medications after which seizures ceased. She received neurology consult, brain imaging was negative for any acute findings -She received wound care for lower extremity wounds. -She was seen by cardiology for right bundle branch block, PAF and systolic CHF with EF of 20%, cardiology recommended conservative managements, her medication optimized, she was treated with eliquis for stroke prophylaxis -She developed aspiration pneumonia, she is being treated with IV antibiotics per infectious disease, she is to continue antibiotics until 04/23/89 to complete 5 days -She had worsening acute kidney injury, now requiring dialysis per nephrology -She is planned for extubation today, she'll be extubated hopefully put on BiPAP Diagnosis Status epilepticus Acute respiratory failure secondary to seizure episode, on MV greater than 96 hours Aspiration pna BLAS on CKD- vasomotor nephropathy Right bundle branch block paroxysmal atrial fibrillation systolic CHF EF 20% Hypercoagulable state LE wounds, POA, MICHELLE is brother [phone], she previously had DI[employer] DIRECT[employer] with [facility] Critical care time 35 minutes History Interval history: No seizures no fevers no agitation, no vomiting Hospitalist Physical - Physical exam Narrative exam: General.: Appears well, no distress, nontoxic HEENT: Moist mucous membranes, extraocular muscles intact, no lymphadenopathy Neck: supple Cardiac: S1-S2 heard Lungs: clear to auscultation bilaterally Abdomen: soft , nontender, nondistended, bowel sounds positive Extremities: no edema clubbing or cyanosis Skin: LE wounds, POA Neurologic: Intubated, drowsy - Constitutional Vitals: Temp Pulse Resp BP Pulse Ox 98.4 F 101 H 16 145/75 95 04/22/18 12:00 04/22/18 15:36 04/22/18 15:36 04/22/18 15:00 04/22/18 14:00 General appearance: Present: severe distress Results - Labs CBC & Chem 7: 04/22/18 10:20 04/22/18 03:44 Labs: Laboratory Last Values WBC 10.3 K/mm3 (4.5-11.0) 04/22/18 10:20 RBC 2.95 M/mm3 (3.65-5.03) L 04/22/18 10:20 Hgb 9.4 gm/dl (10.1-14.3) L 04/22/18 10:20 Hct 28.6 % (30.3-42.9) L 04/22/18 10:20 MCV 97 fl (79-97) 04/22/18 10:20 MCH 32 pg (28-32) 04/22/18 10:20 MCHC 33 % (30-34) 04/22/18 10:20 RDW 15.2 % (13.2-15.2) 04/22/18 10:20 Plt Count 129 K/mm3 (140-440) L 04/22/18 10:20 Lymph % (Auto) 5.7 % (13.4-35.0) L 04/22/18 10:20 [place] % (Auto) 4.6 % (0.0-7.3) 04/22/18 10:20 Eos % (Auto) 0.6 % (0.0-4.3) 04/22/18 10:20 Baso % (Auto) 0.4 % (0.0-1.8) 04/22/18 10:20 Lymph # 0.6 K/mm3 (1.2-5.4) L 04/22/18 10:20 [place] # 0.5 K/mm3 (0.0-0.8) 04/22/18 10:20 Eos # 0.1 K/mm3 (0.0-0.4) 04/22/18 10:20 Baso # 0.0 K/mm3 (0.0-0.1) 04/22/18 10:20 Seg Neutrophils % 88.7 % (40.0-70.0) H 04/22/18 10:20 Seg Neutrophils # 9.1 K/mm3 (1.8-7.7) H 04/22/18 10:20 PT 14.3 Sec. (12.2-14.9) 04/13/18 13:41 INR 1.07 (0.87-1.13) 04/13/18 13:41 APTT 28.9 Sec. (24.2-36.6) 04/13/18 13:41 Thrombin Time 17.3 Sec. (15.1-19.6) 04/13/18 13:41 POC ABG pH 7.308 (7.35-7.45) L 04/17/18 20:40 POC ABG pCO2 31.3 (35-45) L 04/17/18 20:40 POC ABG pO2 61 (80-105) L 04/17/18 20:40 POC ABG HCO3 15.7 04/17/18 20:40 POC ABG Total CO2 17 04/17/18 20:40 POC ABG O2 Sat 89 04/17/18 20:40 POC ABG Base Excess -11 04/17/18 20:40 FiO2 30 % 04/17/18 20:40 Sodium 141 mmol/L (137-145) 04/22/18 03:44 Potassium 3.2 mmol/L (3.6-5.0) L 04/22/18 03:44 Chloride 104.6 mmol/L (98-107) 04/22/18 03:44 Carbon Dioxide 24 mmol/L (22-30) 04/22/18 03:44 Anion Gap 16 mmol/L 04/22/18 03:44 BUN 53 mg/dL (7-17) H 04/22/18 03:44 Creatinine 3.3 mg/dL (0.7-1.2) H 04/22/18 03:44 Estimated GFR 15 ml/min 04/22/18 03:44 BUN/Creatinine Ratio 16 % 04/22/18 03:44 Glucose 192 mg/dL (65-100) H 04/22/18 03:44 POC Glucose 193 (70-105) H 04/22/18 07:59 Lactic Acid 1.10 mmol/L (0.7-2.0) 04/13/18 16:23 Calcium 7.6 mg/dL (8.4-10.2) L 04/22/18 03:44 Phosphorus 3.10 mg/dL (2.5-4.5) 04/22/18 10:20 Magnesium 2.00 mg/dL (1.7-2.3) 04/22/18 10:20 Total Bilirubin 0.60 mg/dL (0.1-1.2) 04/14/18 08:01 Direct Bilirubin 0.2 mg/dL (0-0.2) 04/13/18 13:59 Indirect Bilirubin 0.3 mg/dL 04/13/18 13:59 AST 14 units/L (5-40) 04/14/18 08:01 ALT 7 units/L (7-56) 04/14/18 08:01 Alkaline Phosphatase 106 units/L (35-129) 04/14/18 08:01 Ammonia 47.0 umol/L (25-60) 04/16/18 11:17 Total Creatine Kinase 92 units/L (30-135) 04/13/18 13:59 CK-MB (CK-2) 3.7 ng/mL (0.0-4.0) 04/13/18 13:59 CK-MB (CK-2) Rel Index 4.0 (0-4) 04/13/18 13:59 Troponin T 0.010 ng/mL (0.00-0.029) 04/13/18 13:59 NT-Pro-B Natriuret Pep 13491 pg/mL (0-450) H 04/13/18 13:59 Serum Total Protein 5.6 g/dL (6.1-8.1) L 04/15/18 03:17 Total Protein 6.0 g/dL (6.3-8.2) L 04/14/18 08:01 Albumin 2.4 g/dL (3.8-4.8) L 04/15/18 03:17 Albumin/Globulin Ratio 0.8 % 04/14/18 08:01 Elhep-0-Olemjeuey 0.4 g/dL (0.2-0.3) H 04/15/18 03:17 Fyqoh-0-Xrimkuotl 0.9 g/dL (0.5-0.9) 04/15/18 03:17 Beta Globulins 0.4 g/dL (0.2-0.5) 04/15/18 03:17 Gamma Globulins 1.2 g/dL (0.8-1.7) 04/15/18 03:17 Abnorm Protein Band 1 see below 04/15/18 03:17 PEP Interpretation see below H 04/15/18 03:17 Lipase 44 units/L (13-60) 04/13/18 13:59 Urine Color Diane (Yellow) 04/13/18 14:26 Urine Turbidity Cloudy (Clear) 04/13/18 14:26 Urine pH 5.0 (5.0-7.0) 04/13/18 14:26 Ur Specific Gate 1.017 (1.003-1.030) 04/13/18 14:26 Urine Protein >500 mg/dL (Negative) 04/13/18 14:26 Urine Glucose (UA) >=500 mg/dL (Negative) 04/13/18 14:26 Urine Ketones Neg mg/dL (Negative) 04/13/18 14:26 Urine Blood Neg (Negative) 04/13/18 14:26 Urine Nitrite Neg (Negative) 04/13/18 14:26 Urine Bilirubin Neg (Negative) 04/13/18 14:26 Urine Urobilinogen < 2.0 mg/dL (<2.0) 04/13/18 14:26 Ur Leukocyte Esterase Neg (Negative) 04/13/18 14:26 Urine WBC (Auto) 22.0 /HPF (0.0-6.0) H 04/13/18 14:26 Urine RBC (Auto) 17.0 /HPF (0.0-6.0) 04/13/18 14:26 U Epithel Cells (Auto) 3.0 /HPF (0-13.0) 04/13/18 14:26 Urine Bacteria (Auto) 4+ /HPF (Negative) 04/13/18 14:26 Urine Mucus Few /HPF 04/13/18 14:26 Urine Yeast (Budding) 3+ /HPF 04/13/18 14:26 Urine Eosinophils 7% (None Seen) 04/14/18 11:23 Urine Creatinine 85.5 mg/dL (0.1-20.0) H 04/14/18 11:23 Protein/Creatinin Ratio 1.78 04/14/18 11:23 Urine Sodium 82 mmol/L 04/14/18 11:23 Fraction Sodium Excret 2.3 04/14/18 11:23 Urine Total Protein 152 mg/dL (5-11.8) H 04/14/18 11:23 Urine Opiates Screen Presumptive negative 04/13/18 14:26 Urine Methadone Screen Presumptive negative 04/13/18 14:26 Ur Barbiturates Screen Presumptive negative 04/13/18 14:26 Levetiracetam 37.6 mcg/mL 04/13/18 19:19 Ur Phencyclidine Scrn Presumptive negative 04/13/18 14:26 Ur Amphetamines Screen Presumptive negative 04/13/18 14:26 U Benzodiazepines Scrn Presumptive negative 04/13/18 14:26 Urine Cocaine Screen Presumptive negative 04/13/18 14:26 U Marijuana (THC) Screen Presumptive negative 04/13/18 14:26 Drugs of Abuse Note Disclamer 04/13/18 14:26 Proteinase 3 (PR3) Ab <1.0 AI (<1.0) 04/14/18 11:56 Myeloperoxidase Ab <1.0 AI (<1.0) 04/14/18 11:56 Double Strand DNA Ab <1 IU/mL (<=4) 04/14/18 11:56 Complement C3 155 mg/dL (83-193) 04/14/18 11:56 Complement C4 28 mg/dL (15-57) 04/14/18 11:56 Hepatitis A IgM Ab Non-reactive (NonReactive) 04/14/18 11:56 Hep Bs Antigen Non-reactive (Negative) 04/14/18 11:56 Hep B Core IgM Ab Non-reactive (NonReactive) 04/14/18 11:56 Hepatitis C Antibody Non-reactive (NonReactive) 04/14/18 11:56 Nutrition/Malnutrition Assess - Dietary Evaluation Nutrition/Malnutrition Findings: Nutrition Notes Start: 04/14/18 09:47 Freq: Status: Active Protocol: Document 04/20/18 15:51 OL (Rec: 04/20/18 15:56 OL [id number]) Nutrition Notes Initial or Follow up Reassessment Current Diagnosis CKD(stage I-IV) COPD Diabetes Hypertension Heart Failure Respiratory Failure Stroke Other Pertinent Diagnosis Hx of seizures, Wounds on R and L LE, fungal rash on groin and ischial fold Current Diet Vital High Protein at 70ml/hr Labs/Tests K 3.5 Pertinent Medications Reviewed Height 5 ft 8 in Weight 102 kg [place] Body Weight (lbs) 140.0 BMI 34.2 Subjective/Other Information Pt. continues on vent. Vital High Protein infusing at 40mL/ hr and well tolerated Burn Absent Trauma Absent #2 Nutrition Diagnosis Increased nutrient needs ( specify in comment below) Diagnosis Progress(for reassessment Continues documentation) #1 Nutrition Diagnosis Inadequate oral intake Diagnosis Progress(for reassessment Continues documentation) Is patient on ventilator? Yes Is Patient Ambulatory and/or Out of Bed No REE-([facility]-confined to bed) 2070.104 Kcal/Kg value to use for calculation 14 Approximate Energy Requirements Using 1428 kcal/Kg Calculation Used for Recommendations Kcal/kg Additional Notes IBW:64 KG Protein needs are 128g (2g/kg IBW) Fluid needs are 1ml/kcal or per MD Nutrition Intervention Nutrition Support: Vital High Protein at 60mL/hr with 40mL free water flush q4h Kcal 1,440 Protein (gm) 126 Fluid (mL) 1,203 Goal #1 TF to goal Goal #2 TF to meet 90-100% protein and kcal needs Anticipated Discharge Needs: Unable to determine at this time Follow-Up By: 04/23/18 Additional Comments f/u: TF to goal
[2018-04-22] MEDS ORDERED: NACL 0.9% 100 ML IV PRN (17:11)
[2018-04-22] MEDS ORDERED: LOPRESSOR IV ONE (19:05)
[2018-04-22] MEDS ORDERED: NACL 0.9% 1000 ML 2,000 ML ONE (21:48)
[2018-04-23] MEDS: DUONEB *Not for PRN Use IH SCH ×4 (01:50→22:13)
[2018-04-23 05:11] LABS: Calcium 8.1 mg/dL (8.4-10.2)
[2018-04-23] MEDS: APRESOLINE PO SCH (06:35)
[2018-04-23] MEDS ORDERED: CEPACOL X STRENGTH MM PRN (08:51)
[2018-04-23] MEDS: PEPCID PO SCH (09:31)
[2018-04-23] MEDS: LOPRESSOR PO SCH ×2 (09:31→23:41)
[2018-04-23] MEDS: ELIQUIS FEEDTUBE SCH ×2 (09:32→23:41)
[2018-04-23] MEDS: SODIUM CHLORIDE FLUSH SYRINGE 10 ML IV SCH ×2 (09:33→23:42)
[2018-04-23] MEDS: KEPPRA PO SCH ×2 (09:33→23:41)
--- NOTE | 2018-04-23 09:33 | Progress Note ---
Subjective Principal diagnosis: Acute respiratory failure, secondary to seizure episode. Chronic kidney di Interval history: Patient was seen today for follow-up of multiple renal related issues she has been extubated She is alert awake family members at bedside Interdisciplinary Notes were also reviewed Physical examination: Gen.: No acute distress HEENT: Neck: Supple no JVD Chest: bilateral basilar crackles Heart: Regular rate and rhythm S1-S2 heard no S3-S4 Abdomen: Soft nontender no voluntary guarding rigidity rebound Extremity: 2+ peripheral edema Psychiatric: No evidence of agitation and aggression noted Dermatology: No petechial rashes Labs and x-rays: Reviewed from today Assessment and plan Acute on chronic renal failure patient did require renal replacement therapy 2 she is currently doing well and has been extubated successfully her family members at bedside. There is no acute emergent indication for renal replacement therapy today Etiology of renal failure appears to be acute tubular necrosis quite likely patient may require more dialysis treatment Both lower extremity wound, History of underlying coronary artery disease with PCI Metabolic acidosis to follow Patient appears to be mildly tachycardic between 100 -120 followed by the primary team Hypokalemia: Needs to be monitored closely, potassium needs to be replaced to keep her potassium around 4 Anemia and chronic kidney disease may need erythropoietin Volume overload appears to be improving well We'll continue to follow and make recommendation for renal standpoint Objective - Vital Signs Vital signs: Vital Signs - 12hr 04/22/18 04/22/18 04/22/18 21:45 22:00 22:15 Temperature Pulse Rate 130 H 129 H 120 H Pulse Rate [ Anterior Bilateral Throughout] Respiratory 21 Rate Respiratory Rate [Anterior Bilateral Throughout] Blood Pressure 108/65 124/73 117/78 O2 Sat by Pulse 94 Oximetry O2 Sat by Pulse Oximetry [ Anterior Bilateral Throughout] 04/22/18 04/22/18 04/22/18 22:30 22:40 22:47 Temperature 98.7 F Pulse Rate 123 H 128 H 114 H Pulse Rate [ Anterior Bilateral Throughout] Respiratory 16 Rate Respiratory Rate [Anterior Bilateral Throughout] Blood Pressure 112/78 108/65 114/70 O2 Sat by Pulse Oximetry O2 Sat by Pulse 98 Oximetry [ Anterior Bilateral Throughout] 04/22/18 04/22/18 04/22/18 22:50 23:00 23:06 Temperature 98.2 F Pulse Rate 121 H 121 H Pulse Rate [ Anterior Bilateral Throughout] Respiratory 12 Rate Respiratory Rate [Anterior Bilateral Throughout] Blood Pressure 114/70 111/65 O2 Sat by Pulse 95 Oximetry O2 Sat by Pulse Oximetry [ Anterior Bilateral Throughout] 04/22/18 04/23/18 04/23/18 23:24 00:00 01:00 Temperature Pulse Rate 119 H 114 H 122 H Pulse Rate [ Anterior Bilateral Throughout] Respiratory 18 17 19 Rate Respiratory Rate [Anterior Bilateral Throughout] Blood Pressure 108/65 111/65 121/74 O2 Sat by Pulse 97 96 98 Oximetry O2 Sat by Pulse Oximetry [ Anterior Bilateral Throughout] 04/23/18 04/23/18 04/23/18 01:24 01:50 02:00 Temperature Pulse Rate 119 H 115 H Pulse Rate [ 111 H Anterior Bilateral Throughout] Respiratory 20 13 Rate Respiratory 18 Rate [Anterior Bilateral Throughout] Blood Pressure 121/74 106/60 O2 Sat by Pulse 98 98 Oximetry O2 Sat by Pulse Oximetry [ Anterior Bilateral Throughout] 04/23/18 04/23/18 04/23/18 02:02 03:00 03:36 Temperature 98.7 F Pulse Rate 120 H Pulse Rate [ 113 H Anterior Bilateral Throughout] Respiratory 11 L Rate Respiratory 18 Rate [Anterior Bilateral Throughout] Blood Pressure 131/80 O2 Sat by Pulse 97 Oximetry O2 Sat by Pulse Oximetry [ Anterior Bilateral Throughout] 04/23/18 04/23/18 04/23/18 04:00 05:00 06:00 Temperature Pulse Rate 109 H 118 H 117 H Pulse Rate [ Anterior Bilateral Throughout] Respiratory 28 H 11 L 14 Rate Respiratory Rate [Anterior Bilateral Throughout] Blood Pressure 122/86 136/86 133/90 O2 Sat by Pulse 98 Oximetry O2 Sat by Pulse Oximetry [ Anterior Bilateral Throughout] 04/23/18 04/23/18 04/23/18 06:35 08:31 08:32 Temperature Pulse Rate 112 H Pulse Rate [ 117 H Anterior Bilateral Throughout] Respiratory Rate Respiratory 22 Rate [Anterior Bilateral Throughout] Blood Pressure 148/80 O2 Sat by Pulse 100 Oximetry O2 Sat by Pulse Oximetry [ Anterior Bilateral Throughout] 04/23/18 08:44 Temperature Pulse Rate Pulse Rate [ 118 H Anterior Bilateral Throughout] Respiratory Rate Respiratory 27 H Rate [Anterior Bilateral Throughout] Blood Pressure O2 Sat by Pulse Oximetry O2 Sat by Pulse Oximetry [ Anterior Bilateral Throughout] - Lab 04/22/18 10:20 04/23/18 04:40 Most recent lab results Calcium 8.1 mg/dL (8.4-10.2) L 04/23/18 04:40 Phosphorus 3.10 mg/dL (2.5-4.5) 04/22/18 10:20 Magnesium 2.00 mg/dL (1.7-2.3) 04/22/18 10:20 Urine Creatinine 85.5 mg/dL (0.1-20.0) H 04/14/18 11:23 Urine Sodium 82 mmol/L 04/14/18 11:23 Urine Total Protein 152 mg/dL (5-11.8) H 04/14/18 11:23 Medications & Allergies - Medications Allergies/Adverse Reactions: Allergies No Known Allergies Allergy (Verified 04/17/18 10:03) Home Medications: Home Medications Medication Instructions Recorded Confirmed Last Taken Type Lispro Insulin [Humalog] 15 unit SQ BID 07/17/17 04/23/18 02/16/18 History Aspirin EC [Aspirin Enteric Coated 81 mg PO QDAY #30 tablet 07/22/17 04/23/18 02/17/18 Rx TAB] 81mg Insulin NPH, Human [NovoLIN N] 15 unit SUB-Q BID 12/02/17 12/02/17 12/01/17 History Lantus 45 units SUB-Q QHS 12/02/17 12/02/17 11/30/17 History Labetalol [Normodyne TAB] 200 mg PO BID #60 tablet 12/04/17 Unknown Rx Sulfamethoxazole/Trimethoprim 1 each PO BID #14 tablet 12/04/17 Unknown Rx [Bactrim DS TAB] amLODIPine [Norvasc] 10 mg PO QDAY #30 tablet 12/04/17 04/23/18 Unknown Rx Apixaban [Eliquis] 2.5 mg PO BID 60 Days tablet 02/22/18 04/23/18 Unknown Rx AtorvaSTATin [Lipitor] 20 mg PO QHS #30 tablet 02/22/18 04/23/18 Unknown Rx Furosemide [Lasix TAB] 80 mg PO 0600,1800 #30 tablet 02/22/18 Unknown Rx Insulin Glargine,Hum.rec.anlog 20 unit SQ QHS #30 insuln.pen 02/22/18 04/23/18 Unknown Rx [Lantus Solostar] Lisinopril [Zestril TAB] 20 mg PO QDAY #30 tablet 02/22/18 04/23/18 Unknown Rx Lispro Insulin [Humalog] 0 unit SUB-Q ACHS units 02/22/18 04/23/18 Unknown Rx Metoprolol Xl [Metoprolol 25 mg PO QDAY #30 tablet 02/22/18 Unknown Rx SUCCINATE ER TAB] Potassium Chloride [K-Dur] 20 meq PO Q12HR #60 tablet 02/22/18 04/23/18 Unknown Rx levETIRAcetam [Keppra TAB] 500 mg PO BID #90 tablet 02/22/18 04/23/18 Unknown Rx oxyCODONE /ACETAMINOPHEN [Percocet 1 tab PO Q6H PRN #30 tablet 02/22/18 04/23/18 Unknown Rx 5/325 mg] hydrALAZINE [Apresoline TAB] 100 mg PO TID 04/23/18 04/23/18 Unknown History Active Medications: Generic Name Dose Route Start Last Admin Trade Name Freq PRN Reason Stop Dose Admin Albuterol 2.5 mg 04/13/18 14:57 Proventil IH Q3H PRN Shortness Of Breath Albuterol/Ipratropium 1 ampul 04/19/18 14:00 04/23/18 08:29 Duoneb *Not For Prn Use* IH 1 ampul Q6HRT CECILE Administration Apixaban 2.5 mg 04/14/18 18:00 04/22/18 22:49 Eliquis FEEDTUBE 2.5 mg Q12HR CECILE Administration Protocol Benzocaine/Menthol 1 each 04/23/18 08:51 Cepacol X Strength MM Q1HR PRN Sore Throat Dextrose 50 ml 04/14/18 19:05 04/18/18 00:15 D50w (25gm) Syringe IV 50 ml PRN PRN Administration Hypoglycemia Famotidine 20 mg 04/15/18 10:00 04/22/18 10:32 Pepcid PO 20 mg DAILY CECILE Administration Hydralazine HCl 10 mg 04/14/18 16:15 04/19/18 18:45 Apresoline IV 10 mg Q4HR PRN Administration SBP >150 or DBP >90 Hydralazine HCl 25 mg 04/14/18 17:00 04/23/18 06:35 Apresoline PO 25 mg Q8HR CECILE Administration Hydrophilic Ointment 1 applic 04/13/18 13:43 Vaseline Lip Therapy TP Q2HR PRN Dry Lips Ampicillin Sodium/Sulbactam Sodium 3 gm in 100 mls @ 200 mls/hr 04/19/18 13:00 04/22/18 22:51 Unasyn/Ns 3 Gm/100 Ml IV 200 mls/hr Q12HR CECILE Administration Protocol Sodium Chloride 100 mls @ 999 mls/hr 04/20/18 15:14 Nacl 0.9% IV MIRI PRN Hypotension Sodium Chloride 100 mls @ 999 mls/hr 04/22/18 17:11 Nacl 0.9% IV MIRI PRN Hypotension Levetiracetam 500 mg 04/22/18 22:00 04/22/18 22:46 Keppra PO 500 mg BID CECILE Administration Metoprolol Tartrate 25 mg 04/22/18 10:00 04/22/18 22:50 Lopressor PO 25 mg BID CECILE Administration Multi-Ingred Cream/Lotion/Oil/Oint 1 applic 04/13/18 13:43 Artificial Tears Ophth Oint OU Q4HR PRN Dry Eye(s) Sodium Chloride 10 ml 04/13/18 22:00 04/22/18 22:49 Sodium Chloride Flush Syringe 10 Ml IV 10 ml BID CECILE Administration Sodium Chloride 10 ml 04/13/18 14:57 04/17/18 05:42 Sodium Chloride Flush Syringe 10 Ml IV 10 ml PRN PRN Administration LINE FLUSH
[2018-04-23] MEDS: UNASYN/NS 3 GM/100 ML 3 GM/100 ML BAG IV SCH ×2 (09:36→23:43)
[2018-04-23] MEDS ORDERED: POTASSIUM CHLORIDE FEEDTUBE SCH (11:00)
--- NOTE | 2018-04-23 11:45 | Progress Note ---
Assessment and Plan 42 y/o female with acute respiratory failure, secondary to post-ictal state from seizure. 1. Stop Hydralazine 2. Continue BB 3. Continue BID keppra at 500 BID 4. STable for transfer out of unit. Subjective Date of service: 04/23/18 Principal diagnosis: Acute respiratory failure, secondary to seizure episode. Chronic kidney di Interval history: Successful extubation on yesterday. Awake and alert. Still sinus tach in the 120's despite BB therapy. No complaints. Objective Vital Signs - 12hr 04/23/18 04/23/18 04/23/18 00:00 01:00 01:24 Temperature Pulse Rate 114 H 122 H 119 H Pulse Rate [ Anterior Bilateral Throughout] Respiratory 17 19 20 Rate Respiratory Rate [Anterior Bilateral Throughout] Blood Pressure 111/65 121/74 121/74 O2 Sat by Pulse 96 98 98 Oximetry 04/23/18 04/23/18 04/23/18 01:50 02:00 02:02 Temperature Pulse Rate 115 H Pulse Rate [ 111 H 113 H Anterior Bilateral Throughout] Respiratory 13 Rate Respiratory 18 18 Rate [Anterior Bilateral Throughout] Blood Pressure 106/60 O2 Sat by Pulse 98 Oximetry 04/23/18 04/23/18 04/23/18 03:00 03:36 04:00 Temperature 98.7 F Pulse Rate 120 H 109 H Pulse Rate [ Anterior Bilateral Throughout] Respiratory 11 L 28 H Rate Respiratory Rate [Anterior Bilateral Throughout] Blood Pressure 131/80 122/86 O2 Sat by Pulse 97 Oximetry 04/23/18 04/23/18 04/23/18 05:00 06:00 06:35 Temperature Pulse Rate 118 H 117 H 112 H Pulse Rate [ Anterior Bilateral Throughout] Respiratory 11 L 14 Rate Respiratory Rate [Anterior Bilateral Throughout] Blood Pressure 136/86 133/90 148/80 O2 Sat by Pulse 98 Oximetry 04/23/18 04/23/18 04/23/18 08:31 08:32 08:44 Temperature Pulse Rate Pulse Rate [ 117 H 118 H Anterior Bilateral Throughout] Respiratory Rate Respiratory 22 27 H Rate [Anterior Bilateral Throughout] Blood Pressure O2 Sat by Pulse 100 Oximetry 04/23/18 09:31 Temperature Pulse Rate 135 H Pulse Rate [ Anterior Bilateral Throughout] Respiratory Rate Respiratory Rate [Anterior Bilateral Throughout] Blood Pressure O2 Sat by Pulse Oximetry Constitutional: no acute distress, other (on vent 30% ac 450 p6) ENT: oropharynx moist, other (orally intubated and sedated) Neck: no JVD Effort: normal Ascultation: Bilateral: clear Percussion: Bilateral: not dull Cardiovascular: regular rate and rhythm Gastrointestinal: normoactive bowel sounds, soft, non-tender Extremities: no edema, pink and warm, pulses normal Neurologic: unable to assess, other (RASS -1) CBC and BMP: 04/22/18 10:20 04/23/18 04:40 ABG, PT/INR, D-dimer: ABG POC ABG pH 7.308 (7.35-7.45) L 04/17/18 20:40 POC ABG pCO2 31.3 (35-45) L 04/17/18 20:40 POC ABG pO2 61 (80-105) L 04/17/18 20:40 POC ABG HCO3 15.7 04/17/18 20:40 POC ABG Total CO2 17 04/17/18 20:40 POC ABG O2 Sat 89 04/17/18 20:40 PT/INR, D-dimer PT 14.3 Sec. (12.2-14.9) 04/13/18 13:41 INR 1.07 (0.87-1.13) 04/13/18 13:41 Abnormal lab findings: Abnormal Labs 04/13/18 04/13/18 04/13/18 13:41 13:59 13:59 WBC RBC Hgb Hct MCV 103 H RDW 16.8 H Plt Count Lymph % (Auto) Lymph # Seg Neutrophils % 73.1 H Seg Neutrophils # POC ABG pH POC ABG pCO2 POC ABG pO2 Sodium 136 L Potassium Carbon Dioxide 13 L BUN 30 H Creatinine 4.0 H Glucose 210 H POC Glucose Lactic Acid 3.10 H* Calcium 8.1 L Phosphorus Alkaline Phosphatase 130 H Ammonia NT-Pro-B Natriuret Pep 26589 H Serum Total Protein Total Protein Albumin 2.9 L Owyfw-4-Ayogaddcg PEP Interpretation Urine WBC (Auto) Urine Creatinine Urine Total Protein 04/13/18 04/13/18 04/13/18 13:59 14:07 14:26 WBC RBC Hgb Hct MCV RDW Plt Count Lymph % (Auto) Lymph # Seg Neutrophils % Seg Neutrophils # POC ABG pH 7.262 L POC ABG pCO2 32.8 L POC ABG pO2 Sodium Potassium Carbon Dioxide BUN Creatinine Glucose POC Glucose Lactic Acid Calcium Phosphorus Alkaline Phosphatase Ammonia 65.0 H NT-Pro-B Natriuret Pep Serum Total Protein Total Protein Albumin Lrqcd-7-Omjkzniuk PEP Interpretation Urine WBC (Auto) 22.0 H Urine Creatinine Urine Total Protein 04/13/18 04/14/18 04/14/18 14:30 05:06 08:01 WBC RBC Hgb Hct MCV 98 H RDW 15.9 H Plt Count Lymph % (Auto) 9.3 L Lymph # 0.7 L Seg Neutrophils % 83.8 H Seg Neutrophils # POC ABG pH POC ABG pCO2 31.8 L POC ABG pO2 127 H Sodium Potassium Carbon Dioxide BUN Creatinine Glucose POC Glucose 181 H Lactic Acid Calcium Phosphorus Alkaline Phosphatase Ammonia NT-Pro-B Natriuret Pep Serum Total Protein Total Protein Albumin Nacqp-1-Wsowgstsm PEP Interpretation Urine WBC (Auto) Urine Creatinine Urine Total Protein 04/14/18 04/14/18 04/14/18 08:01 11:23 11:23 WBC RBC Hgb Hct MCV RDW Plt Count Lymph % (Auto) Lymph # Seg Neutrophils % Seg Neutrophils # POC ABG pH POC ABG pCO2 POC ABG pO2 Sodium Potassium Carbon Dioxide 18 L BUN 30 H Creatinine 4.1 H 3.9 H Glucose POC Glucose Lactic Acid Calcium 8.1 L Phosphorus 4.90 H Alkaline Phosphatase Ammonia NT-Pro-B Natriuret Pep Serum Total Protein Total Protein 6.0 L Albumin 2.6 L Gfejw-6-Bbigobcgw PEP Interpretation Urine WBC (Auto) Urine Creatinine 85.5 H Urine Total Protein 152 H 04/14/18 04/14/18 04/15/18 19:04 23:37 03:17 WBC RBC Hgb Hct MCV RDW Plt Count Lymph % (Auto) Lymph # Seg Neutrophils % Seg Neutrophils # POC ABG pH POC ABG pCO2 POC ABG pO2 Sodium Potassium Carbon Dioxide BUN Creatinine Glucose POC Glucose 69 L 65 L Lactic Acid Calcium Phosphorus Alkaline Phosphatase Ammonia NT-Pro-B Natriuret Pep Serum Total Protein 5.6 L Total Protein Albumin 2.4 L Qxxid-9-Zppamgius 0.4 H PEP Interpretation see below H Urine WBC (Auto) Urine Creatinine Urine Total Protein 04/15/18 04/15/18 04/15/18 03:17 03:17 05:27 WBC 11.3 H RBC Hgb Hct MCV RDW 15.7 H Plt Count Lymph % (Auto) Lymph # Seg Neutrophils % Seg Neutrophils # POC ABG pH POC ABG pCO2 POC ABG pO2 Sodium Potassium Carbon Dioxide 18 L BUN 33 H Creatinine 4.1 H Glucose 63 L POC Glucose 66 L Lactic Acid Calcium 8.1 L Phosphorus Alkaline Phosphatase Ammonia NT-Pro-B Natriuret Pep Serum Total Protein Total Protein Albumin Wocdp-4-Iqpfesphx PEP Interpretation Urine WBC (Auto) Urine Creatinine Urine Total Protein 04/15/18 04/15/18 04/15/18 05:29 08:50 09:32 WBC RBC Hgb Hct MCV RDW Plt Count Lymph % (Auto) Lymph # Seg Neutrophils % Seg Neutrophils # POC ABG pH POC ABG pCO2 29.8 L POC ABG pO2 Sodium Potassium Carbon Dioxide BUN Creatinine Glucose POC Glucose 64 L 114 H Lactic Acid Calcium Phosphorus Alkaline Phosphatase Ammonia NT-Pro-B Natriuret Pep Serum Total Protein Total Protein Albumin Qvdgv-1-Pobfmweyl PEP Interpretation Urine WBC (Auto) Urine Creatinine Urine Total Protein 04/15/18 04/16/18 04/16/18 11:38 03:51 03:51 WBC RBC Hgb Hct MCV 98 H RDW 15.5 H Plt Count Lymph % (Auto) Lymph # Seg Neutrophils % Seg Neutrophils # POC ABG pH POC ABG pCO2 POC ABG pO2 Sodium Potassium Carbon Dioxide 19 L BUN 39 H Creatinine 4.2 H Glucose POC Glucose 69 L Lactic Acid Calcium 8.1 L Phosphorus Alkaline Phosphatase Ammonia NT-Pro-B Natriuret Pep Serum Total Protein Total Protein Albumin Bwonc-0-Pqnnzksjd PEP Interpretation Urine WBC (Auto) Urine Creatinine Urine Total Protein 04/17/18 04/17/18 04/17/18 04:33 06:10 09:45 WBC RBC Hgb Hct MCV RDW Plt Count Lymph % (Auto) Lymph # Seg Neutrophils % Seg Neutrophils # POC ABG pH POC ABG pCO2 28.0 L POC ABG pO2 106 H Sodium Potassium Carbon Dioxide 17 L BUN 47 H Creatinine 4.4 H Glucose 143 H 127 H POC Glucose Lactic Acid Calcium 8.3 L Phosphorus Alkaline Phosphatase Ammonia NT-Pro-B Natriuret Pep Serum Total Protein Total Protein Albumin Yhwzz-3-Cjqozbqdp PEP Interpretation Urine WBC (Auto) Urine Creatinine Urine Total Protein 04/17/18 04/17/18 04/17/18 17:16 20:40 23:56 WBC RBC Hgb Hct MCV RDW Plt Count Lymph % (Auto) Lymph # Seg Neutrophils % Seg Neutrophils # POC ABG pH 7.308 L POC ABG pCO2 31.3 L POC ABG pO2 61 L Sodium Potassium Carbon Dioxide BUN Creatinine Glucose POC Glucose 128 H 45 L Lactic Acid Calcium Phosphorus Alkaline Phosphatase Ammonia NT-Pro-B Natriuret Pep Serum Total Protein Total Protein Albumin Ixdke-2-Scgwjqyrx PEP Interpretation Urine WBC (Auto) Urine Creatinine Urine Total Protein 04/18/18 04/18/18 04/19/18 00:06 04:30 04:40 WBC RBC Hgb Hct MCV RDW Plt Count Lymph % (Auto) Lymph # Seg Neutrophils % Seg Neutrophils # POC ABG pH POC ABG pCO2 POC ABG pO2 Sodium Potassium 3.5 L Carbon Dioxide 17 L 19 L BUN 51 H 56 H Creatinine 4.3 H 4.2 H Glucose 63 L POC Glucose 47 L Lactic Acid Calcium 8.0 L Phosphorus Alkaline Phosphatase Ammonia NT-Pro-B Natriuret Pep Serum Total Protein Total Protein Albumin Agrjr-1-Xjobobwag PEP Interpretation Urine WBC (Auto) Urine Creatinine Urine Total Protein 04/19/18 04/20/18 04/20/18 12:30 04:39 11:35 WBC RBC Hgb Hct MCV RDW Plt Count Lymph % (Auto) Lymph # Seg Neutrophils % Seg Neutrophils # POC ABG pH POC ABG pCO2 POC ABG pO2 Sodium Potassium 3.5 L Carbon Dioxide 18 L BUN 63 H Creatinine 4.8 H Glucose 101 H POC Glucose 61 L 114 H Lactic Acid Calcium 7.8 L Phosphorus Alkaline Phosphatase Ammonia NT-Pro-B Natriuret Pep Serum Total Protein Total Protein Albumin Vjlgk-4-Hcfsliodc PEP Interpretation Urine WBC (Auto) Urine Creatinine Urine Total Protein 04/20/18 04/21/18 04/21/18 23:32 03:18 05:41 WBC RBC Hgb Hct MCV RDW Plt Count Lymph % (Auto) Lymph # Seg Neutrophils % Seg Neutrophils # POC ABG pH POC ABG pCO2 POC ABG pO2 Sodium Potassium 3.2 L Carbon Dioxide BUN 40 H Creatinine 2.9 H Glucose 145 H POC Glucose 125 H 159 H Lactic Acid Calcium Phosphorus Alkaline Phosphatase Ammonia NT-Pro-B Natriuret Pep Serum Total Protein Total Protein Albumin Wkepi-0-Hmgctrqik PEP Interpretation Urine WBC (Auto) Urine Creatinine Urine Total Protein 04/21/18 04/21/18 04/21/18 08:32 15:07 16:50 WBC RBC Hgb Hct MCV RDW Plt Count Lymph % (Auto) Lymph # Seg Neutrophils % Seg Neutrophils # POC ABG pH POC ABG pCO2 POC ABG pO2 Sodium Potassium Carbon Dioxide BUN Creatinine Glucose POC Glucose 128 H 128 H 122 H Lactic Acid Calcium Phosphorus Alkaline Phosphatase Ammonia NT-Pro-B Natriuret Pep Serum Total Protein Total Protein Albumin Wqanw-6-Ecptbzofb PEP Interpretation Urine WBC (Auto) Urine Creatinine Urine Total Protein 04/22/18 04/22/18 04/22/18 00:36 03:44 05:20 WBC RBC Hgb Hct MCV RDW Plt Count Lymph % (Auto) Lymph # Seg Neutrophils % Seg Neutrophils # POC ABG pH POC ABG pCO2 POC ABG pO2 Sodium Potassium 3.2 L Carbon Dioxide BUN 53 H Creatinine 3.3 H Glucose 192 H POC Glucose 153 H 190 H Lactic Acid Calcium 7.6 L Phosphorus Alkaline Phosphatase Ammonia NT-Pro-B Natriuret Pep Serum Total Protein Total Protein Albumin Uabek-0-Jujautuvs PEP Interpretation Urine WBC (Auto) Urine Creatinine Urine Total Protein 04/22/18 04/22/18 04/22/18 07:59 10:20 12:13 WBC RBC 2.95 L Hgb 9.4 L Hct 28.6 L MCV RDW Plt Count 129 L Lymph % (Auto) 5.7 L Lymph # 0.6 L Seg Neutrophils % 88.7 H Seg Neutrophils # 9.1 H POC ABG pH POC ABG pCO2 POC ABG pO2 Sodium Potassium Carbon Dioxide BUN Creatinine Glucose POC Glucose 193 H 193 H Lactic Acid Calcium Phosphorus Alkaline Phosphatase Ammonia NT-Pro-B Natriuret Pep Serum Total Protein Total Protein Albumin Ptepj-4-Xroohjpgo PEP Interpretation Urine WBC (Auto) Urine Creatinine Urine Total Protein 04/22/18 04/23/18 04/23/18 17:42 00:24 04:40 WBC RBC Hgb Hct MCV RDW Plt Count Lymph % (Auto) Lymph # Seg Neutrophils % Seg Neutrophils # POC ABG pH POC ABG pCO2 POC ABG pO2 Sodium Potassium 3.4 L Carbon Dioxide BUN 33 H Creatinine 2.4 H Glucose 118 H POC Glucose 133 H 141 H Lactic Acid Calcium 8.1 L Phosphorus Alkaline Phosphatase Ammonia NT-Pro-B Natriuret Pep Serum Total Protein Total Protein Albumin Cpskn-4-Umdgkvzfa PEP Interpretation Urine WBC (Auto) Urine Creatinine Urine Total Protein 01/15/19 01/15/19 01/15/19 05:49 08:44 10:08 WBC RBC Hgb Hct MCV RDW Plt Count Lymph % (Auto) Lymph # Seg Neutrophils % Seg Neutrophils # POC ABG pH POC ABG pCO2 POC ABG pO2 Sodium Potassium Carbon Dioxide BUN Creatinine Glucose POC Glucose 112 H 119 H 139 H Lactic Acid Calcium Phosphorus Alkaline Phosphatase Ammonia NT-Pro-B Natriuret Pep Serum Total Protein Total Protein Albumin Ehalt-2-Mhbujeyfa PEP Interpretation Urine WBC (Auto) Urine Creatinine Urine Total Protein
--- NOTE | 2018-04-23 12:37 | Progress Note ---
Assessment and Plan Assessment and plan: 42-year-old woman who presented after a witnessed seizure. She was intubated, admitted to the ICU. pmh; HTN, Systolic CHF(EF 20%), CVA, DM, Seizure Disorder, COPD, Pulmonary HTN, CAD S/P Stent Placement -She presented, with acute seizures which were intractable. She was intubated and admitted to the ICU, she received antiseizure medications after which seizures ceased. She received neurology consult, brain imaging was negative for any acute findings -She received wound care for lower extremity wounds. -She was seen by cardiology for right bundle branch block, PAF and systolic CHF with EF of 20%, cardiology recommended conservative managements, her medication optimized, she was treated with eliquis for stroke prophylaxis -She developed aspiration pneumonia, she is being treated with IV antibiotics per infectious disease, she is to continue antibiotics until 04/23/89 to complete 5 days -She had worsening acute kidney injury, now requiring dialysis per nephrology -She was extubated on 04/22/18, improving to be downgraded to tele floor today Diagnosis Status epilepticus Acute respiratory failure secondary to seizure episode, on MV greater than 96 hours Aspiration pna BLAS on CKD- vasomotor nephropathy Right bundle branch block paroxysmal atrial fibrillation systolic CHF EF 20% Hypercoagulable state LE wounds, POA, MICHELLE is brother [phone], 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 [facility] Critical care time 35 minutes History Interval history: No seizures no fevers no agitation, no vomiting no sob, no cp, Hospitalist Physical - Physical exam Narrative exam: General.: Appears well, no distress, nontoxic HEENT: Moist mucous membranes, extraocular muscles intact, no lymphadenopathy Neck: supple Cardiac: S1-S2 heard Lungs: clear to auscultation bilaterally Abdomen: soft , nontender, nondistended, bowel sounds positive Extremities: no edema clubbing or cyanosis Skin: LE wounds, POA Neurologic: Alert, oriented, moves all extremities psych; calm and cooperative - Constitutional Vitals: Temp Pulse Resp BP Pulse Ox 98.7 F 135 H 27 H 148/80 100 04/23/18 03:36 04/23/18 09:31 04/23/18 08:44 04/23/18 06:35 04/23/18 08:32 General appearance: Present: severe distress Results - Labs CBC & Chem 7: 04/24/18 14:38 04/24/18 14:38 Labs: Laboratory Last Values WBC 10.3 K/mm3 (4.5-11.0) 04/22/18 10:20 RBC 2.95 M/mm3 (3.65-5.03) L 04/22/18 10:20 Hgb 9.4 gm/dl (10.1-14.3) L 04/22/18 10:20 Hct 28.6 % (30.3-42.9) L 04/22/18 10:20 MCV 97 fl (79-97) 04/22/18 10:20 MCH 32 pg (28-32) 04/22/18 10:20 MCHC 33 % (30-34) 04/22/18 10:20 RDW 15.2 % (13.2-15.2) 04/22/18 10:20 Plt Count 129 K/mm3 (140-440) L 04/22/18 10:20 Lymph % (Auto) 5.7 % (13.4-35.0) L 04/22/18 10:20 Jack % (Auto) 4.6 % (0.0-7.3) 04/22/18 10:20 Eos % (Auto) 0.6 % (0.0-4.3) 04/22/18 10:20 Baso % (Auto) 0.4 % (0.0-1.8) 04/22/18 10:20 Lymph # 0.6 K/mm3 (1.2-5.4) L 04/22/18 10:20 Jack # 0.5 K/mm3 (0.0-0.8) 04/22/18 10:20 Eos # 0.1 K/mm3 (0.0-0.4) 04/22/18 10:20 Baso # 0.0 K/mm3 (0.0-0.1) 04/22/18 10:20 Seg Neutrophils % 88.7 % (40.0-70.0) H 04/22/18 10:20 Seg Neutrophils # 9.1 K/mm3 (1.8-7.7) H 04/22/18 10:20 PT 14.3 Sec. (12.2-14.9) 04/13/18 13:41 INR 1.07 (0.87-1.13) 04/13/18 13:41 APTT 28.9 Sec. (24.2-36.6) 04/13/18 13:41 Thrombin Time 17.3 Sec. (15.1-19.6) 04/13/18 13:41 POC ABG pH 7.308 (7.35-7.45) L 04/17/18 20:40 POC ABG pCO2 31.3 (35-45) L 04/17/18 20:40 POC ABG pO2 61 (80-105) L 04/17/18 20:40 POC ABG HCO3 15.7 04/17/18 20:40 POC ABG Total CO2 17 04/17/18 20:40 POC ABG O2 Sat 89 04/17/18 20:40 POC ABG Base Excess -11 04/17/18 20:40 FiO2 30 % 04/17/18 20:40 Sodium 140 mmol/L (137-145) 04/23/18 04:40 Potassium 3.4 mmol/L (3.6-5.0) L 04/23/18 04:40 Chloride 101.3 mmol/L (98-107) 04/23/18 04:40 Carbon Dioxide 27 mmol/L (22-30) 04/23/18 04:40 Anion Gap 15 mmol/L 04/23/18 04:40 BUN 33 mg/dL (7-17) H 04/23/18 04:40 Creatinine 2.4 mg/dL (0.7-1.2) H 04/23/18 04:40 Estimated GFR 22 ml/min 04/23/18 04:40 BUN/Creatinine Ratio 14 % 04/23/18 04:40 Glucose 118 mg/dL (65-100) H 04/23/18 04:40 POC Glucose 139 (70-105) H 04/23/18 10:08 Lactic Acid 1.10 mmol/L (0.7-2.0) 04/13/18 16:23 Calcium 8.1 mg/dL (8.4-10.2) L 04/23/18 04:40 Phosphorus 3.10 mg/dL (2.5-4.5) 04/22/18 10:20 Magnesium 2.00 mg/dL (1.7-2.3) 04/22/18 10:20 Total Bilirubin 0.60 mg/dL (0.1-1.2) 04/14/18 08:01 Direct Bilirubin 0.2 mg/dL (0-0.2) 04/13/18 13:59 Indirect Bilirubin 0.3 mg/dL 04/13/18 13:59 AST 14 units/L (5-40) 04/14/18 08:01 ALT 7 units/L (7-56) 04/14/18 08:01 Alkaline Phosphatase 106 units/L (35-129) 04/14/18 08:01 Ammonia 47.0 umol/L (25-60) 04/16/18 11:17 Total Creatine Kinase 92 units/L (30-135) 04/13/18 13:59 CK-MB (CK-2) 3.7 ng/mL (0.0-4.0) 04/13/18 13:59 CK-MB (CK-2) Rel Index 4.0 (0-4) 04/13/18 13:59 Troponin T 0.010 ng/mL (0.00-0.029) 04/13/18 13:59 NT-Pro-B Natriuret Pep 36534 pg/mL (0-450) H 04/13/18 13:59 Serum Total Protein 5.6 g/dL (6.1-8.1) L 04/15/18 03:17 Total Protein 6.0 g/dL (6.3-8.2) L 04/14/18 08:01 Albumin 2.4 g/dL (3.8-4.8) L 04/15/18 03:17 Albumin/Globulin Ratio 0.8 % 04/14/18 08:01 Emyhu-3-Juxkqfxwj 0.4 g/dL (0.2-0.3) H 04/15/18 03:17 Fvbch-2-Ssxjmznxc 0.9 g/dL (0.5-0.9) 04/15/18 03:17 Beta Globulins 0.4 g/dL (0.2-0.5) 04/15/18 03:17 Gamma Globulins 1.2 g/dL (0.8-1.7) 04/15/18 03:17 Abnorm Protein Band 1 see below 04/15/18 03:17 PEP Interpretation see below H 04/15/18 03:17 Lipase 44 units/L (13-60) 04/13/18 13:59 Urine Color Diane (Yellow) 04/13/18 14:26 Urine Turbidity Cloudy (Clear) 04/13/18 14:26 Urine pH 5.0 (5.0-7.0) 04/13/18 14:26 Ur Specific [place] 1.017 (1.003-1.030) 04/13/18 14:26 Urine Protein >500 mg/dL (Negative) 04/13/18 14:26 Urine Glucose (UA) >=500 mg/dL (Negative) 04/13/18 14:26 Urine Ketones Neg mg/dL (Negative) 04/13/18 14:26 Urine Blood Neg (Negative) 04/13/18 14:26 Urine Nitrite Neg (Negative) 04/13/18 14:26 Urine Bilirubin Neg (Negative) 04/13/18 14:26 Urine Urobilinogen < 2.0 mg/dL (<2.0) 04/13/18 14:26 Ur Leukocyte Esterase Neg (Negative) 04/13/18 14:26 Urine WBC (Auto) 22.0 /HPF (0.0-6.0) H 04/13/18 14:26 Urine RBC (Auto) 17.0 /HPF (0.0-6.0) 04/13/18 14:26 U Epithel Cells (Auto) 3.0 /HPF (0-13.0) 04/13/18 14:26 Urine Bacteria (Auto) 4+ /HPF (Negative) 04/13/18 14:26 Urine Mucus Few /HPF 04/13/18 14:26 Urine Yeast (Budding) 3+ /HPF 04/13/18 14:26 Urine Eosinophils 7% (None Seen) 04/14/18 11:23 Urine Creatinine 85.5 mg/dL (0.1-20.0) H 04/14/18 11:23 Protein/Creatinin Ratio 1.78 04/14/18 11:23 Urine Sodium 82 mmol/L 04/14/18 11:23 Fraction Sodium Excret 2.3 04/14/18 11:23 Urine Total Protein 152 mg/dL (5-11.8) H 04/14/18 11:23 Urine Opiates Screen Presumptive negative 04/13/18 14:26 Urine Methadone Screen Presumptive negative 04/13/18 14:26 Ur Barbiturates Screen Presumptive negative 04/13/18 14:26 Levetiracetam 37.6 mcg/mL 04/13/18 19:19 Ur Phencyclidine Scrn Presumptive negative 04/13/18 14:26 Ur Amphetamines Screen Presumptive negative 04/13/18 14:26 U Benzodiazepines Scrn Presumptive negative 04/13/18 14:26 Urine Cocaine Screen Presumptive negative 04/13/18 14:26 U Marijuana (THC) Screen Presumptive negative 04/13/18 14:26 Drugs of Abuse Note Disclamer 04/13/18 14:26 Proteinase 3 (PR3) Ab <1.0 AI (<1.0) 04/14/18 11:56 Myeloperoxidase Ab <1.0 AI (<1.0) 04/14/18 11:56 Double Strand DNA Ab <1 IU/mL (<=4) 04/14/18 11:56 Complement C3 155 mg/dL (83-193) 04/14/18 11:56 Complement C4 28 mg/dL (15-57) 04/14/18 11:56 Hepatitis A IgM Ab Non-reactive (NonReactive) 04/14/18 11:56 Hep Bs Antigen Non-reactive (Negative) 04/14/18 11:56 Hep B Core IgM Ab Non-reactive (NonReactive) 04/14/18 11:56 Hepatitis C Antibody Non-reactive (NonReactive) 04/14/18 11:56 Nutrition/Malnutrition Assess - Dietary Evaluation Nutrition/Malnutrition Findings: Nutrition Notes Start: 04/14/18 09:47 Freq: Status: Active Protocol: Document 04/20/18 15:51 OL (Rec: 04/20/18 15:56 OL [id number]) Nutrition Notes Initial or Follow up Reassessment Current Diagnosis CKD(stage I-IV) COPD Diabetes Hypertension Heart Failure Respiratory Failure Stroke Other Pertinent Diagnosis Hx of seizures, Wounds on R and L LE, fungal rash on groin and ischial fold Current Diet Vital High Protein at 70ml/hr Labs/Tests K 3.5 Pertinent Medications Reviewed Height 5 ft 8 in Weight 102 kg [place] Body Weight (lbs) 140.0 BMI 34.2 Subjective/Other Information Pt. continues on vent. Vital High Protein infusing at 40mL/ hr and well tolerated Burn Absent Trauma Absent #2 Nutrition Diagnosis Increased nutrient needs ( specify in comment below) Diagnosis Progress(for reassessment Continues documentation) #1 Nutrition Diagnosis Inadequate oral intake Diagnosis Progress(for reassessment Continues documentation) Is patient on ventilator? Yes Is Patient Ambulatory and/or Out of Bed No REE-([place]-St. Jeor-confined to bed) 2070.104 Kcal/Kg value to use for calculation 14 Approximate Energy Requirements Using 1428 kcal/Kg Calculation Used for Recommendations Kcal/kg Additional Notes IBW:64 KG Protein needs are 128g (2g/kg IBW) Fluid needs are 1ml/kcal or per MD Nutrition Intervention Nutrition Support: Vital High Protein at 60mL/hr with 40mL free water flush q4h Kcal 1,440 Protein (gm) 126 Fluid (mL) 1,203 Goal #1 TF to goal Goal #2 TF to meet 90-100% protein and kcal needs Anticipated Discharge Needs: Unable to determine at this time Follow-Up By: 04/23/18 Additional Comments f/u: TF to goal
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
--- NOTE | 2018-04-24 08:26 | Event Note ---
Date: 04/24/18 Patient with acute renal failure likely superimposed on chronic renal failure. She has improved significantly with 2 dialysis sessions. Overnight, the patient pulled her Vas-Cath partially out. She may need reinsertion of a Vas-Cath versus placement of a PermCath depending on nephrology's recommendations. Patient will be kept nothing by mouth for now
[2018-04-24] MEDS: DUONEB *Not for PRN Use IH SCH ×3 (09:12→20:14)
--- NOTE | 2018-04-24 09:12 | Progress Note ---
Subjective Principal diagnosis: Acute respiratory failure, secondary to seizure episode. Chronic kidney di Interval history: Patient was seen today for follow-up of multiple renal related issues Events of 24 hours noted discussed with Dr. Khan patient has pulled out her Vas-Cath She has received 2 dialysis treatment so far She does feel much better no compressive any chest pain pressure or shortness of breath Tachycardia slowly improving Interdisciplinary Notes were also reviewed Physical examination: Gen.: No acute distress HEENT: Neck: Supple no JVD Chest: bilateral basilar crackles Heart: Regular rate and rhythm S1-S2 heard no S3-S4 Abdomen: Soft nontender no voluntary guarding rigidity rebound Extremity: 2+ peripheral edema Psychiatric: No evidence of agitation and aggression noted Dermatology: No petechial rashes Labs and x-rays: Reviewed from today Assessment and plan Acute on chronic renal failure renal function slightly worse today Will continue to monitor patient may need reinitiation of renal replacement therapy currently she has pulled out her Vas-Cath which should be removed, if needed we may consider placement of a permacath Hypokalemia appears to be doing better Avoid any nephrotoxic medication continue the patient to monitor her renal function Bone mineral disorder phosphorus is 3.1 stable Anemia in chronic renal failure needs to be monitored periodically Will give him erythropoietin Multiple comorbidities underlying including CVA, diabetes, seizure Has history of stage IV chronic kidney disease underlying History of coronary artery disease with PCI likely patient does have underlying renovascular disease Respiratory failure currently extubated stable We'll continue to follow and make recommendation for renal standpoint Objective - Vital Signs Vital signs: Vital Signs - 12hr 04/23/18 04/23/18 04/23/18 21:55 22:08 22:18 Temperature Pulse Rate Pulse Rate [ 110 H 113 H Anterior Bilateral Throughout] Pulse Rate [ 110 H Apical] Pulse Rate [ 110 H From Monitor] Respiratory 18 Rate Respiratory 18 16 Rate [Anterior Bilateral Throughout] Blood Pressure Blood Pressure [Right] O2 Sat by Pulse 96 96 Oximetry 04/23/18 04/24/18 04/24/18 23:41 00:15 04:17 Temperature 98.0 F 98.4 F Pulse Rate 120 H 117 H 111 H Pulse Rate [ Anterior Bilateral Throughout] Pulse Rate [ Apical] Pulse Rate [ From Monitor] Respiratory 12 18 Rate Respiratory Rate [Anterior Bilateral Throughout] Blood Pressure 135/68 132/80 133/77 Blood Pressure [Right] O2 Sat by Pulse 97 95 Oximetry 04/24/18 04/24/18 04/24/18 04:50 08:02 08:22 Temperature 98.1 F Pulse Rate 112 H 72 112 H Pulse Rate [ Anterior Bilateral Throughout] Pulse Rate [ Apical] Pulse Rate [ From Monitor] Respiratory 20 Rate Respiratory Rate [Anterior Bilateral Throughout] Blood Pressure Blood Pressure 134/83 [Right] O2 Sat by Pulse 94 Oximetry 04/24/18 08:25 Temperature Pulse Rate Pulse Rate [ Anterior Bilateral Throughout] Pulse Rate [ Apical] Pulse Rate [ 110 H From Monitor] Respiratory Rate Respiratory Rate [Anterior Bilateral Throughout] Blood Pressure Blood Pressure [Right] O2 Sat by Pulse Oximetry - Lab 04/22/18 10:20 04/24/18 03:55 Most recent lab results Calcium 8.0 mg/dL (8.4-10.2) L 04/24/18 03:55 Phosphorus 3.10 mg/dL (2.5-4.5) 04/22/18 10:20 Magnesium 2.00 mg/dL (1.7-2.3) 04/22/18 10:20 Urine Creatinine 85.5 mg/dL (0.1-20.0) H 04/14/18 11:23 Urine Sodium 82 mmol/L 04/14/18 11:23 Urine Total Protein 152 mg/dL (5-11.8) H 04/14/18 11:23 Medications & Allergies - Medications Allergies/Adverse Reactions: Allergies No Known Allergies Allergy (Verified 04/17/18 10:03) Home Medications: Home Medications Medication Instructions Recorded Confirmed Last Taken Type Lispro Insulin [Humalog] 15 unit SQ BID 07/17/17 04/23/18 02/16/18 History Aspirin EC [Aspirin Enteric Coated 81 mg PO QDAY #30 tablet 07/22/17 04/23/18 02/17/18 Rx TAB] 81mg Insulin NPH, Human [NovoLIN N] 15 unit SUB-Q BID 12/02/17 12/02/17 12/01/17 History Lantus 45 units SUB-Q QHS 12/02/17 12/02/17 11/30/17 History Labetalol [Normodyne TAB] 200 mg PO BID #60 tablet 12/04/17 Unknown Rx Sulfamethoxazole/Trimethoprim 1 each PO BID #14 tablet 12/04/17 Unknown Rx [Bactrim DS TAB] amLODIPine [Norvasc] 10 mg PO QDAY #30 tablet 12/04/17 04/23/18 Unknown Rx Apixaban [Eliquis] 2.5 mg PO BID 60 Days tablet 02/22/18 04/23/18 Unknown Rx AtorvaSTATin [Lipitor] 20 mg PO QHS #30 tablet 02/22/18 04/23/18 Unknown Rx Furosemide [Lasix TAB] 80 mg PO 0600,1800 #30 tablet 02/22/18 Unknown Rx Insulin Glargine,Hum.rec.anlog 20 unit SQ QHS #30 insuln.pen 02/22/18 04/23/18 Unknown Rx [Lantus Solostar] Lisinopril [Zestril TAB] 20 mg PO QDAY #30 tablet 02/22/18 04/23/18 Unknown Rx Lispro Insulin [Humalog] 0 unit SUB-Q ACHS units 02/22/18 04/23/18 Unknown Rx Metoprolol Xl [Metoprolol 25 mg PO QDAY #30 tablet 02/22/18 Unknown Rx SUCCINATE ER TAB] Potassium Chloride [K-Dur] 20 meq PO Q12HR #60 tablet 02/22/18 04/23/18 Unknown Rx levETIRAcetam [Keppra TAB] 500 mg PO BID #90 tablet 02/22/18 04/23/18 Unknown Rx oxyCODONE /ACETAMINOPHEN [Percocet 1 tab PO Q6H PRN #30 tablet 02/22/18 04/23/18 Unknown Rx 5/325 mg] hydrALAZINE [Apresoline TAB] 100 mg PO TID 04/23/18 04/23/18 Unknown History Active Medications: Generic Name Dose Route Start Last Admin Trade Name Freq PRN Reason Stop Dose Admin Albuterol 2.5 mg 04/13/18 14:57 Proventil IH Q3H PRN Shortness Of Breath Albuterol/Ipratropium 1 ampul 04/23/18 20:00 04/23/18 22:13 Duoneb *Not For Prn Use* IH 1 ampul TIDRT CECILE Administration Apixaban 2.5 mg 04/14/18 18:00 04/23/18 23:41 Eliquis FEEDTUBE 2.5 mg Q12HR CECILE Administration Protocol Atorvastatin Calcium 20 mg 04/23/18 22:00 04/23/18 23:41 Lipitor PO 20 mg QHS CECILE Administration Benzocaine/Menthol 1 each 04/23/18 08:51 Cepacol X Strength MM Q1HR PRN Sore Throat Dextrose 50 ml 04/14/18 19:05 04/18/18 00:15 D50w (25gm) Syringe IV 50 ml PRN PRN Administration Hypoglycemia Famotidine 20 mg 04/15/18 10:00 04/23/18 09:31 Pepcid PO 20 mg DAILY CECILE Administration Hydralazine HCl 10 mg 04/14/18 16:15 04/19/18 18:45 Apresoline IV 10 mg Q4HR PRN Administration SBP >150 or DBP >90 Hydrophilic Ointment 1 applic 04/13/18 13:43 Vaseline Lip Therapy TP Q2HR PRN Dry Lips Ampicillin Sodium/Sulbactam Sodium 3 gm in 100 mls @ 200 mls/hr 04/19/18 13:00 04/23/18 23:43 Unasyn/Ns 3 Gm/100 Ml IV 200 mls/hr Q12HR CECILE Administration Protocol Sodium Chloride 100 mls @ 999 mls/hr 04/22/18 17:11 Nacl 0.9% IV MIRI PRN Hypotension Levetiracetam 500 mg 04/22/18 22:00 04/23/18 23:41 Keppra PO 500 mg BID CECILE Administration Metoprolol Tartrate 25 mg 04/22/18 10:00 04/23/18 23:41 Lopressor PO 25 mg BID CECILE Administration Multi-Ingred Cream/Lotion/Oil/Oint 1 applic 04/13/18 13:43 Artificial Tears Ophth Oint OU Q4HR PRN Dry Eye(s) Potassium Chloride 20 meq 04/23/18 11:00 Potassium Chloride FEEDTUBE ONCE CECILE Sodium Chloride 10 ml 04/13/18 22:00 04/23/18 23:42 Sodium Chloride Flush Syringe 10 Ml IV 10 ml BID CECILE Administration Sodium Chloride 10 ml 04/13/18 14:57 04/17/18 05:42 Sodium Chloride Flush Syringe 10 Ml IV 10 ml PRN PRN Administration LINE FLUSH
[2018-04-24] MEDS: KEPPRA PO SCH ×2 (10:00→21:41)
[2018-04-24] MEDS: PEPCID PO SCH (10:00)
[2018-04-24] MEDS: UNASYN/NS 3 GM/100 ML 3 GM/100 ML BAG IV SCH (10:00)
[2018-04-24] MEDS: ELIQUIS FEEDTUBE SCH ×2 (10:00→21:41)
[2018-04-24] MEDS: SODIUM CHLORIDE FLUSH SYRINGE 10 ML IV SCH ×2 (10:00→21:42)
[2018-04-24] MEDS: LOPRESSOR PO SCH ×2 (10:00→21:41)
--- NOTE | 2018-04-24 14:21 | Progress Note ---
Assessment and Plan Assessment and plan: 42-year-old woman who presented after a witnessed seizure. She was intubated, admitted to the ICU. pmh; HTN, Systolic CHF(EF 20%), CVA, DM, Seizure Disorder, COPD, Pulmonary HTN, CAD S/P Stent Placement -She presented, with acute seizures which were intractable. She was intubated and admitted to the ICU, she received antiseizure medications after which seizures ceased. She received neurology consult, brain imaging was negative for any acute findings -She received wound care for lower extremity wounds. -She was seen by cardiology for right bundle branch block, PAF and systolic CHF with EF of 20%, cardiology recommended conservative managements, her medication optimized, she was treated with eliquis for stroke prophylaxis -She developed aspiration pneumonia, she is being treated with IV antibiotics per infectious disease, she is to continue antibiotics until 04/23/89 to complete 5 days -she had blas and required a few HD sessions, kidney function improved, she has known hx of stage 4 ckd -She was extubated on 04/22/18, transferred to telemetry floor on 04/23 -she pulled out her vas cath on morning of 04/24, had bleeding from it, vas cath now removed, and pressure dressing applied. per nephrology she is unlikely to require HD as she has renal recovery, fup hg -she was hypoglycemic and confused on 04/23, given Dextrose, not on insulin Diagnosis Status epilepticus Acute respiratory failure secondary to seizure episode, on MV greater than 96 hours Aspiration pna BLAS on CKD- vasomotor nephropathy Right bundle branch block paroxysmal atrial fibrillation systolic CHF EF 20% Hypercoagulable state LE wounds, POA, acute blood loss anemia hypoglycemia NOK is brother [phone], she previously had [employer] with kaci at home History Interval history: No seizures no fevers no agitation, no vomiting no sob, no cp, Hospitalist Physical - Physical exam Narrative exam: General.: Appears well, no distress, nontoxic HEENT: Moist mucous membranes, extraocular muscles intact, no lymphadenopathy Neck: supple Cardiac: S1-S2 heard Lungs: clear to auscultation bilaterally Abdomen: soft , nontender, nondistended, bowel sounds positive Extremities: no edema clubbing or cyanosis Skin: LE wounds, POA Neurologic: Alert, oriented, moves all extremities psych; calm and cooperative - Constitutional Vitals: Temp Pulse Resp BP Pulse Ox 98.2 F 120 H 20 156/94 96 04/24/18 11:49 04/24/18 11:49 04/24/18 11:49 04/24/18 11:49 04/24/18 11:49 General appearance: Present: severe distress Results - Labs CBC & Chem 7: 04/24/18 14:38 04/24/18 14:38 Labs: Laboratory Last Values WBC 10.3 K/mm3 (4.5-11.0) 04/22/18 10:20 RBC 2.95 M/mm3 (3.65-5.03) L 04/22/18 10:20 Hgb 9.4 gm/dl (10.1-14.3) L 04/22/18 10:20 Hct 28.6 % (30.3-42.9) L 04/22/18 10:20 MCV 97 fl (79-97) 04/22/18 10:20 MCH 32 pg (28-32) 04/22/18 10:20 MCHC 33 % (30-34) 04/22/18 10:20 RDW 15.2 % (13.2-15.2) 04/22/18 10:20 Plt Count 129 K/mm3 (140-440) L 04/22/18 10:20 Lymph % (Auto) 5.7 % (13.4-35.0) L 04/22/18 10:20 Woodson % (Auto) 4.6 % (0.0-7.3) 04/22/18 10:20 Eos % (Auto) 0.6 % (0.0-4.3) 04/22/18 10:20 Baso % (Auto) 0.4 % (0.0-1.8) 04/22/18 10:20 Lymph # 0.6 K/mm3 (1.2-5.4) L 04/22/18 10:20 Woodson # 0.5 K/mm3 (0.0-0.8) 04/22/18 10:20 Eos # 0.1 K/mm3 (0.0-0.4) 04/22/18 10:20 Baso # 0.0 K/mm3 (0.0-0.1) 04/22/18 10:20 Seg Neutrophils % 88.7 % (40.0-70.0) H 04/22/18 10:20 Seg Neutrophils # 9.1 K/mm3 (1.8-7.7) H 04/22/18 10:20 PT 14.3 Sec. (12.2-14.9) 04/13/18 13:41 INR 1.07 (0.87-1.13) 04/13/18 13:41 APTT 28.9 Sec. (24.2-36.6) 04/13/18 13:41 Thrombin Time 17.3 Sec. (15.1-19.6) 04/13/18 13:41 POC ABG pH 7.308 (7.35-7.45) L 04/17/18 20:40 POC ABG pCO2 31.3 (35-45) L 04/17/18 20:40 POC ABG pO2 61 (80-105) L 04/17/18 20:40 POC ABG HCO3 15.7 04/17/18 20:40 POC ABG Total CO2 17 04/17/18 20:40 POC ABG O2 Sat 89 04/17/18 20:40 POC ABG Base Excess -11 04/17/18 20:40 FiO2 30 % 04/17/18 20:40 Sodium 142 mmol/L (137-145) 04/24/18 03:55 Potassium 3.6 mmol/L (3.6-5.0) 04/24/18 03:55 Chloride 100.9 mmol/L (98-107) 04/24/18 03:55 Carbon Dioxide 24 mmol/L (22-30) 04/24/18 03:55 Anion Gap 21 mmol/L 04/24/18 03:55 BUN 41 mg/dL (7-17) H 04/24/18 03:55 Creatinine 3.2 mg/dL (0.7-1.2) H 04/24/18 03:55 Estimated GFR 16 ml/min 04/24/18 03:55 BUN/Creatinine Ratio 13 % 04/24/18 03:55 Glucose 117 mg/dL (65-100) H 04/24/18 03:55 POC Glucose 94 (70-105) 04/24/18 11:55 Lactic Acid 1.10 mmol/L (0.7-2.0) 04/13/18 16:23 Calcium 8.0 mg/dL (8.4-10.2) L 04/24/18 03:55 Phosphorus 3.10 mg/dL (2.5-4.5) 04/22/18 10:20 Magnesium 2.00 mg/dL (1.7-2.3) 04/22/18 10:20 Total Bilirubin 0.60 mg/dL (0.1-1.2) 04/14/18 08:01 Direct Bilirubin 0.2 mg/dL (0-0.2) 04/13/18 13:59 Indirect Bilirubin 0.3 mg/dL 04/13/18 13:59 AST 14 units/L (5-40) 04/14/18 08:01 ALT 7 units/L (7-56) 04/14/18 08:01 Alkaline Phosphatase 106 units/L (35-129) 04/14/18 08:01 Ammonia 47.0 umol/L (25-60) 04/16/18 11:17 Total Creatine Kinase 92 units/L (30-135) 04/13/18 13:59 CK-MB (CK-2) 3.7 ng/mL (0.0-4.0) 04/13/18 13:59 CK-MB (CK-2) Rel Index 4.0 (0-4) 04/13/18 13:59 Troponin T 0.010 ng/mL (0.00-0.029) 04/13/18 13:59 NT-Pro-B Natriuret Pep 74138 pg/mL (0-450) H 04/13/18 13:59 Serum Total Protein 5.6 g/dL (6.1-8.1) L 04/15/18 03:17 Total Protein 6.0 g/dL (6.3-8.2) L 04/14/18 08:01 Albumin 2.4 g/dL (3.8-4.8) L 04/15/18 03:17 Albumin/Globulin Ratio 0.8 % 04/14/18 08:01 Wsxzi-5-Yxzphwmkc 0.4 g/dL (0.2-0.3) H 04/15/18 03:17 Fjxzr-3-Agdcikpcn 0.9 g/dL (0.5-0.9) 04/15/18 03:17 Beta Globulins 0.4 g/dL (0.2-0.5) 04/15/18 03:17 Gamma Globulins 1.2 g/dL (0.8-1.7) 04/15/18 03:17 Abnorm Protein Band 1 see below 04/15/18 03:17 PEP Interpretation see below H 04/15/18 03:17 Lipase 44 units/L (13-60) 04/13/18 13:59 Urine Color Diane (Yellow) 04/13/18 14:26 Urine Turbidity Cloudy (Clear) 04/13/18 14:26 Urine pH 5.0 (5.0-7.0) 04/13/18 14:26 Ur Specific Zachary 1.017 (1.003-1.030) 04/13/18 14:26 Urine Protein >500 mg/dL (Negative) 04/13/18 14:26 Urine Glucose (UA) >=500 mg/dL (Negative) 04/13/18 14:26 Urine Ketones Neg mg/dL (Negative) 04/13/18 14:26 Urine Blood Neg (Negative) 04/13/18 14:26 Urine Nitrite Neg (Negative) 04/13/18 14:26 Urine Bilirubin Neg (Negative) 04/13/18 14:26 Urine Urobilinogen < 2.0 mg/dL (<2.0) 04/13/18 14:26 Ur Leukocyte Esterase Neg (Negative) 04/13/18 14:26 Urine WBC (Auto) 22.0 /HPF (0.0-6.0) H 04/13/18 14:26 Urine RBC (Auto) 17.0 /HPF (0.0-6.0) 04/13/18 14:26 U Epithel Cells (Auto) 3.0 /HPF (0-13.0) 04/13/18 14:26 Urine Bacteria (Auto) 4+ /HPF (Negative) 04/13/18 14:26 Urine Mucus Few /HPF 04/13/18 14:26 Urine Yeast (Budding) 3+ /HPF 04/13/18 14:26 Urine Eosinophils 7% (None Seen) 04/14/18 11:23 Urine Creatinine 85.5 mg/dL (0.1-20.0) H 04/14/18 11:23 Protein/Creatinin Ratio 1.78 04/14/18 11:23 Urine Sodium 82 mmol/L 04/14/18 11:23 Fraction Sodium Excret 2.3 04/14/18 11:23 Urine Total Protein 152 mg/dL (5-11.8) H 04/14/18 11:23 Urine Opiates Screen Presumptive negative 04/13/18 14:26 Urine Methadone Screen Presumptive negative 04/13/18 14:26 Ur Barbiturates Screen Presumptive negative 04/13/18 14:26 Levetiracetam 37.6 mcg/mL 04/13/18 19:19 Ur Phencyclidine Scrn Presumptive negative 04/13/18 14:26 Ur Amphetamines Screen Presumptive negative 04/13/18 14:26 U Benzodiazepines Scrn Presumptive negative 04/13/18 14:26 Urine Cocaine Screen Presumptive negative 04/13/18 14:26 U Marijuana (THC) Screen Presumptive negative 04/13/18 14:26 Drugs of Abuse Note Disclamer 04/13/18 14:26 Proteinase 3 (PR3) Ab <1.0 AI (<1.0) 04/14/18 11:56 Myeloperoxidase Ab <1.0 AI (<1.0) 04/14/18 11:56 Double Strand DNA Ab <1 IU/mL (<=4) 04/14/18 11:56 Complement C3 155 mg/dL (83-193) 04/14/18 11:56 Complement C4 28 mg/dL (15-57) 04/14/18 11:56 Hepatitis A IgM Ab Non-reactive (NonReactive) 04/14/18 11:56 Hep Bs Antigen Non-reactive (Negative) 04/14/18 11:56 Hep B Core IgM Ab Non-reactive (NonReactive) 04/14/18 11:56 Hepatitis C Antibody Non-reactive (NonReactive) 04/14/18 11:56 Nutrition/Malnutrition Assess - Dietary Evaluation Nutrition/Malnutrition Findings: Nutrition Notes Start: 04/14/18 09:47 Freq: Status: Active Protocol: Document 04/23/18 14:20 BRYAN (Rec: 04/23/18 14:49 BRYAN [email or web address]) Co-Sign 04/23/18 14:20 NHALL Nutrition Notes Initial or Follow up Reassessment Current Diagnosis CKD(stage I-IV) COPD Diabetes Hypertension Heart Failure Respiratory Failure Stroke Other Pertinent Diagnosis Hx of seizures, Wounds on R and L LE, fungal rash on groin and ischial fold Current Diet Renal and Consistent CHO FL Labs/Tests K: 3.4 BUN: 33 Cr: 2.4 Pertinent Medications Reviewed Height 5 ft 8 in Weight 102 kg Wren Body Weight (lbs) 140.0 BMI 34.2 Subjective/Other Information F/u for TF goal rate. Pt. is now extubated. Pt. began FL diet today at lunch. Pt. has been experiencing nausea per RN. Burn Absent Trauma Absent #2 Nutrition Diagnosis Increased nutrient needs ( specify in comment below) Comments: Protein Diagnosis Progress(for reassessment Continues documentation) #1 Nutrition Diagnosis Inadequate oral intake As Evidenced by Signs and Symptoms Pt. on FL diet Diagnosis Progress(for reassessment Improved documentation) Is patient on ventilator? No Is Patient Ambulatory and/or Out of Bed No REE-([facility]-confined to bed) 2070.104 Kcal/Kg value to use for calculation 14 Approximate Energy Requirements Using 1428 kcal/Kg Calculation Used for Recommendations Kcal/kg Additional Notes IBW:64 KG Protein needs are 128g (2g/kg IBW) Fluid needs are 1ml/kcal or per MD Nutrition Intervention Change Diet Order: Continue diet advancement when medically feasible. Goal #1 Continue diet advancement to meet nutrient needs. Goal #2 PO tolerance Anticipated Discharge Needs: Unable to determine at this time Follow-Up By: 04/25/18 Additional Comments F/u: Diet advancement and PO intakes
[2018-04-24] MEDS ORDERED: D10W 1,000 ML IV SCH (15:00)
[2018-04-24 15:04] LABS: Basophils # (Auto) 0.1 K/mm3 (0.0-0.1); Basophils % (Auto) 0.8 % (0.0-1.8); Eosinophils # (Auto) 0.1 K/mm3 (0.0-0.4); Eosinophils % (Auto) 1.1 % (0.0-4.3); Hematocrit 26.2 % (30.3-42.9); Hemoglobin 8.6 gm/dl (10.1-14.3); Lymphocytes # (Auto) 0.9 K/mm3 (1.2-5.4); Lymphocytes % (Auto) 10.7 % (13.4-35.0); Mean Corpuscular HGB Conc 33 % (30-34); Mean Corpuscular Volume 96 fl (79-97); Monocytes # (Auto) 0.3 K/mm3 (0.0-0.8); Monocytes % (Auto) 3.7 % (0.0-7.3); Platelet Count 178 K/mm3 (140-440); Red Blood Count 2.72 M/mm3 (3.65-5.03)
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
[2018-04-25 06:40] LABS: Basophils # (Auto) 0.1 K/mm3 (0.0-0.1); Basophils % (Auto) 0.6 % (0.0-1.8); Eosinophils # (Auto) 0.1 K/mm3 (0.0-0.4); Eosinophils % (Auto) 1.2 % (0.0-4.3); Hematocrit 26.1 % (30.3-42.9); Hemoglobin 8.5 gm/dl (10.1-14.3); Lymphocytes # (Auto) 1.1 K/mm3 (1.2-5.4); Lymphocytes % (Auto) 10.5 % (13.4-35.0); Mean Corpuscular HGB Conc 33 % (30-34); Mean Corpuscular Volume 97 fl (79-97); Monocytes # (Auto) 0.5 K/mm3 (0.0-0.8); Monocytes % (Auto) 4.5 % (0.0-7.3); Platelet Count 188 K/mm3 (140-440); Red Blood Count 2.68 M/mm3 (3.65-5.03)
[2018-04-25 06:48] LABS: Calcium 7.9 mg/dL (8.4-10.2)
[2018-04-25] MEDS: DUONEB *Not for PRN Use IH SCH ×3 (08:06→21:34)
--- NOTE | 2018-04-25 09:16 | Progress Note ---
Subjective Principal diagnosis: Acute respiratory failure, secondary to seizure episode. Chronic kidney di Interval history: Patient was seen today for follow-up of multiple renal related issues Creatinine continues to worsen Interdisciplinary Notes were also reviewed Physical examination: Gen.: No acute distress HEENT: Neck: Supple no JVD Chest: bilateral basilar crackles Heart: Regular rate and rhythm S1-S2 heard no S3-S4 Abdomen: Soft nontender no voluntary guarding rigidity rebound Extremity: 2+ peripheral edema Psychiatric: No evidence of agitation and aggression noted Dermatology: No petechial rashes Labs and x-rays: Reviewed from today Assessment and plan Acute on chronic renal failure with underlying stage IV chronic kidney disease there is no emergent indication for renal placement therapy patient did require 2 dialysis treatment so far, she had pulled her dialysis catheter Currently would like to wait for her labs for tomorrow to decide about dialysis patient is aware that she may need to go back on dialysis and at that point we'll consider placing a permacath if needed tomorrow and then set up for an outpatient dialysis facility without dialysis it'll be risky to discharge her if her renal function continues to worsen Respiratory failure currently extubated doing well has been on the floor for last few days Hypertension and volume has been counseled and educated to comply with fluid restriction no more than 1200 mL per day Case has been discussed with patient as well as her family during this admission at length Patient does understand clearly about the poor renal prognosis and possible need for dialysis but may be ongoing for some time or possibly patient may need to continue if she does not recover Anemia in chronic kidney disease will give him erythropoietin subcutaneous 20,0001 Hypokalemia appears to be better current potassium 3.6, Bone mineral disorder phosphorus is 3.1 stable Anemia in chronic renal failure needs to be monitored periodically Will give him erythropoietin Multiple comorbidities underlying including CVA, diabetes, seizure Has history of stage IV chronic kidney disease underlying History of coronary artery disease with PCI likely patient does have underlying renovascular disease Respiratory failure currently extubated stable We'll continue to follow and make recommendation for renal standpoint Objective - Vital Signs Vital signs: Vital Signs - 12hr 04/24/18 04/24/18 04/24/18 21:41 22:20 23:00 Temperature 98.1 F Pulse Rate 114 H 112 H Pulse Rate [ Anterior Bilateral Throughout] Pulse Rate [ 114 H Apical] Pulse Rate [ 114 H From Monitor] Respiratory 18 20 Rate Respiratory Rate [Anterior Bilateral Throughout] Blood Pressure 131/78 Blood Pressure 132/88 [Right] O2 Sat by Pulse 99 99 Oximetry 04/24/18 04/25/18 04/25/18 23:32 03:58 04:00 Temperature 98.0 F 98.1 F 98.1 F Pulse Rate 107 H 98 H Pulse Rate [ Anterior Bilateral Throughout] Pulse Rate [ Apical] Pulse Rate [ From Monitor] Respiratory 18 18 18 Rate Respiratory Rate [Anterior Bilateral Throughout] Blood Pressure 132/83 118/77 133/85 Blood Pressure 133/85 [Right] O2 Sat by Pulse 94 95 Oximetry 04/25/18 04/25/18 04/25/18 08:00 08:07 08:32 Temperature Pulse Rate 119 H Pulse Rate [ 96 H 97 H Anterior Bilateral Throughout] Pulse Rate [ Apical] Pulse Rate [ From Monitor] Respiratory Rate Respiratory 18 18 Rate [Anterior Bilateral Throughout] Blood Pressure 139/86 Blood Pressure [Right] O2 Sat by Pulse 100 Oximetry - Lab 04/25/18 04:26 04/25/18 04:26 Most recent lab results Calcium 7.9 mg/dL (8.4-10.2) L 04/25/18 04:26 Phosphorus 3.10 mg/dL (2.5-4.5) 04/22/18 10:20 Magnesium 2.00 mg/dL (1.7-2.3) 04/22/18 10:20 Urine Creatinine 85.5 mg/dL (0.1-20.0) H 04/14/18 11:23 Urine Sodium 82 mmol/L 04/14/18 11:23 Urine Total Protein 152 mg/dL (5-11.8) H 04/14/18 11:23 Medications & Allergies - Medications Allergies/Adverse Reactions: Allergies No Known Allergies Allergy (Verified 04/17/18 10:03) Home Medications: Home Medications Medication Instructions Recorded Confirmed Last Taken Type Lispro Insulin [Humalog] 15 unit SQ BID 07/17/17 04/23/18 02/16/18 History Aspirin EC [Aspirin Enteric Coated 81 mg PO QDAY #30 tablet 07/22/17 04/23/18 02/17/18 Rx TAB] 81mg Insulin NPH, Human [NovoLIN N] 15 unit SUB-Q BID 12/02/17 12/02/17 12/01/17 History Lantus 45 units SUB-Q QHS 12/02/17 12/02/17 11/30/17 History Labetalol [Normodyne TAB] 200 mg PO BID #60 tablet 12/04/17 Unknown Rx Sulfamethoxazole/Trimethoprim 1 each PO BID #14 tablet 12/04/17 Unknown Rx [Bactrim DS TAB] amLODIPine [Norvasc] 10 mg PO QDAY #30 tablet 12/04/17 04/23/18 Unknown Rx Apixaban [Eliquis] 2.5 mg PO BID 60 Days tablet 02/22/18 04/23/18 Unknown Rx AtorvaSTATin [Lipitor] 20 mg PO QHS #30 tablet 02/22/18 04/23/18 Unknown Rx Furosemide [Lasix TAB] 80 mg PO 0600,1800 #30 tablet 02/22/18 Unknown Rx Insulin Glargine,Hum.rec.anlog 20 unit SQ QHS #30 insuln.pen 02/22/18 04/23/18 Unknown Rx [Lantus Solostar] Lisinopril [Zestril TAB] 20 mg PO QDAY #30 tablet 02/22/18 04/23/18 Unknown Rx Lispro Insulin [Humalog] 0 unit SUB-Q ACHS units 02/22/18 04/23/18 Unknown Rx Metoprolol Xl [Metoprolol 25 mg PO QDAY #30 tablet 02/22/18 Unknown Rx SUCCINATE ER TAB] Potassium Chloride [K-Dur] 20 meq PO Q12HR #60 tablet 02/22/18 04/23/18 Unknown Rx levETIRAcetam [Keppra TAB] 500 mg PO BID #90 tablet 02/22/18 04/23/18 Unknown Rx oxyCODONE /ACETAMINOPHEN [Percocet 1 tab PO Q6H PRN #30 tablet 02/22/18 04/23/18 Unknown Rx 5/325 mg] hydrALAZINE [Apresoline TAB] 100 mg PO TID 04/23/18 04/23/18 Unknown History Active Medications: Generic Name Dose Route Start Last Admin Trade Name Freq PRN Reason Stop Dose Admin Albuterol 2.5 mg 04/13/18 14:57 Proventil IH Q3H PRN Shortness Of Breath Albuterol/Ipratropium 1 ampul 04/23/18 20:00 04/25/18 08:06 Duoneb *Not For Prn Use* IH 1 ampul TIDRT CECILE Administration Apixaban 2.5 mg 04/14/18 18:00 04/24/18 21:41 Eliquis FEEDTUBE 2.5 mg Q12HR CECILE Administration Protocol Atorvastatin Calcium 20 mg 04/23/18 22:00 04/24/18 21:41 Lipitor PO 20 mg QHS CECILE Administration Benzocaine/Menthol 1 each 04/23/18 08:51 Cepacol X Strength MM Q1HR PRN Sore Throat Dextrose 50 ml 04/14/18 19:05 04/18/18 00:15 D50w (25gm) Syringe IV 50 ml PRN PRN Administration Hypoglycemia Famotidine 20 mg 04/15/18 10:00 04/24/18 10:00 Pepcid PO Not Given DAILY CECILE Hydralazine HCl 10 mg 04/14/18 16:15 04/19/18 18:45 Apresoline IV 10 mg Q4HR PRN Administration SBP >150 or DBP >90 Hydrophilic Ointment 1 applic 04/13/18 13:43 Vaseline Lip Therapy TP Q2HR PRN Dry Lips Sodium Chloride 100 mls @ 999 mls/hr 04/22/18 17:11 Nacl 0.9% IV MIRI PRN Hypotension Dextrose 1,000 mls @ 42 mls/hr 04/24/18 15:00 04/24/18 16:32 D10w IV 42 mls/hr DIRECT CECILE Administration Levetiracetam 500 mg 04/22/18 22:00 04/24/18 21:41 Keppra PO 500 mg BID CECILE Administration Metoprolol Tartrate 25 mg 04/22/18 10:00 04/24/18 21:41 Lopressor PO 25 mg BID CECILE Administration Multi-Ingred Cream/Lotion/Oil/Oint 1 applic 04/13/18 13:43 Artificial Tears Ophth Oint OU Q4HR PRN Dry Eye(s) Sodium Chloride 10 ml 04/13/18 22:00 04/24/18 21:42 Sodium Chloride Flush Syringe 10 Ml IV 10 ml BID CECILE Administration Sodium Chloride 10 ml 04/13/18 14:57 04/17/18 05:42 Sodium Chloride Flush Syringe 10 Ml IV 10 ml PRN PRN Administration LINE FLUSH
[2018-04-25] MEDS ORDERED: PROCRIT SUB-Q NR (10:00)
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
[2018-04-25] MEDS: KEPPRA PO SCH ×2 (10:31→22:37)
[2018-04-25] MEDS: PEPCID PO SCH (10:31)
[2018-04-25] MEDS: LOPRESSOR PO SCH ×2 (10:31→22:37)
[2018-04-25] MEDS: ELIQUIS FEEDTUBE SCH ×2 (10:31→22:37)
[2018-04-25] MEDS: SODIUM CHLORIDE FLUSH SYRINGE 10 ML IV SCH ×2 (10:32→22:38)
[2018-04-25] MEDS: DELTASONE PO SCH (12:53)
--- NOTE | 2018-04-25 13:30 | Progress Note ---
Assessment and Plan 42 y/o female with acute respiratory failure, secondary to post-ictal state from seizure. 1. Wean FiO2 as tolerated 2. HD per renal 3. BP control Subjective Date of service: 04/25/18 Principal diagnosis: Acute respiratory failure, secondary to seizure episode. Chronic kidney di Interval history: No acute events. Partially pulled out HD catheter on yesterday. Pulm status stable, still on nasal cannula. Objective Vital Signs - 12hr 04/25/18 04/25/18 04/25/18 03:58 04:00 08:00 Temperature 98.1 F 98.1 F Pulse Rate 107 H 98 H Pulse Rate [ 96 H Anterior Bilateral Throughout] Respiratory 18 18 Rate Respiratory 18 Rate [Anterior Bilateral Throughout] Blood Pressure 118/77 133/85 Blood Pressure 133/85 [Right] O2 Sat by Pulse 94 95 Oximetry 04/25/18 04/25/18 04/25/18 08:07 08:32 10:31 Temperature Pulse Rate 119 H 119 H Pulse Rate [ 97 H Anterior Bilateral Throughout] Respiratory Rate Respiratory 18 Rate [Anterior Bilateral Throughout] Blood Pressure 139/86 139/86 Blood Pressure [Right] O2 Sat by Pulse 100 Oximetry Constitutional: no acute distress, other (on vent 30% ac 450 p6) ENT: oropharynx moist, other (orally intubated and sedated) Neck: no JVD Effort: normal Ascultation: Bilateral: clear Percussion: Bilateral: not dull Cardiovascular: regular rate and rhythm Gastrointestinal: normoactive bowel sounds, soft, non-tender Extremities: no edema, pink and warm, pulses normal Neurologic: unable to assess, other (RASS -1) CBC and BMP: 04/25/18 04:26 04/25/18 04:26 ABG, PT/INR, D-dimer: ABG POC ABG pH 7.308 (7.35-7.45) L 04/17/18 20:40 POC ABG pCO2 31.3 (35-45) L 04/17/18 20:40 POC ABG pO2 61 (80-105) L 04/17/18 20:40 POC ABG HCO3 15.7 04/17/18 20:40 POC ABG Total CO2 17 04/17/18 20:40 POC ABG O2 Sat 89 04/17/18 20:40 PT/INR, D-dimer PT 14.3 Sec. (12.2-14.9) 04/13/18 13:41 INR 1.07 (0.87-1.13) 04/13/18 13:41 Abnormal lab findings: Abnormal Labs 04/13/18 04/13/18 04/13/18 13:41 13:59 13:59 WBC RBC Hgb Hct MCV 103 H RDW 16.8 H Plt Count Lymph % (Auto) Lymph # Seg Neutrophils % 73.1 H Seg Neutrophils # POC ABG pH POC ABG pCO2 POC ABG pO2 Sodium 136 L Potassium Chloride Carbon Dioxide 13 L BUN 30 H Creatinine 4.0 H Glucose 210 H POC Glucose Lactic Acid 3.10 H* Calcium 8.1 L Phosphorus Alkaline Phosphatase 130 H Ammonia NT-Pro-B Natriuret Pep 55500 H Serum Total Protein Total Protein Albumin 2.9 L Nnqev-2-Imbhijizb PEP Interpretation Urine WBC (Auto) Urine Creatinine Urine Total Protein 04/13/18 04/13/18 04/13/18 13:59 14:07 14:26 WBC RBC Hgb Hct MCV RDW Plt Count Lymph % (Auto) Lymph # Seg Neutrophils % Seg Neutrophils # POC ABG pH 7.262 L POC ABG pCO2 32.8 L POC ABG pO2 Sodium Potassium Chloride Carbon Dioxide BUN Creatinine Glucose POC Glucose Lactic Acid Calcium Phosphorus Alkaline Phosphatase Ammonia 65.0 H NT-Pro-B Natriuret Pep Serum Total Protein Total Protein Albumin Kbevp-2-Zdxorddgf PEP Interpretation Urine WBC (Auto) 22.0 H Urine Creatinine Urine Total Protein 04/13/18 04/14/18 04/14/18 14:30 05:06 08:01 WBC RBC Hgb Hct MCV 98 H RDW 15.9 H Plt Count Lymph % (Auto) 9.3 L Lymph # 0.7 L Seg Neutrophils % 83.8 H Seg Neutrophils # POC ABG pH POC ABG pCO2 31.8 L POC ABG pO2 127 H Sodium Potassium Chloride Carbon Dioxide BUN Creatinine Glucose POC Glucose 181 H Lactic Acid Calcium Phosphorus Alkaline Phosphatase Ammonia NT-Pro-B Natriuret Pep Serum Total Protein Total Protein Albumin Ktxbm-7-Lecmqvlwf PEP Interpretation Urine WBC (Auto) Urine Creatinine Urine Total Protein 04/14/18 04/14/18 04/14/18 08:01 11:23 11:23 WBC RBC Hgb Hct MCV RDW Plt Count Lymph % (Auto) Lymph # Seg Neutrophils % Seg Neutrophils # POC ABG pH POC ABG pCO2 POC ABG pO2 Sodium Potassium Chloride Carbon Dioxide 18 L BUN 30 H Creatinine 4.1 H 3.9 H Glucose POC Glucose Lactic Acid Calcium 8.1 L Phosphorus 4.90 H Alkaline Phosphatase Ammonia NT-Pro-B Natriuret Pep Serum Total Protein Total Protein 6.0 L Albumin 2.6 L Fbano-0-Bfrmumuwy PEP Interpretation Urine WBC (Auto) Urine Creatinine 85.5 H Urine Total Protein 152 H 04/14/18 04/14/18 04/15/18 19:04 23:37 03:17 WBC RBC Hgb Hct MCV RDW Plt Count Lymph % (Auto) Lymph # Seg Neutrophils % Seg Neutrophils # POC ABG pH POC ABG pCO2 POC ABG pO2 Sodium Potassium Chloride Carbon Dioxide BUN Creatinine Glucose POC Glucose 69 L 65 L Lactic Acid Calcium Phosphorus Alkaline Phosphatase Ammonia NT-Pro-B Natriuret Pep Serum Total Protein 5.6 L Total Protein Albumin 2.4 L Hjvtv-4-Jbzxzrdif 0.4 H PEP Interpretation see below H Urine WBC (Auto) Urine Creatinine Urine Total Protein 04/15/18 04/15/18 04/15/18 03:17 03:17 05:27 WBC 11.3 H RBC Hgb Hct MCV RDW 15.7 H Plt Count Lymph % (Auto) Lymph # Seg Neutrophils % Seg Neutrophils # POC ABG pH POC ABG pCO2 POC ABG pO2 Sodium Potassium Chloride Carbon Dioxide 18 L BUN 33 H Creatinine 4.1 H Glucose 63 L POC Glucose 66 L Lactic Acid Calcium 8.1 L Phosphorus Alkaline Phosphatase Ammonia NT-Pro-B Natriuret Pep Serum Total Protein Total Protein Albumin Oworv-6-Njkzwqfry PEP Interpretation Urine WBC (Auto) Urine Creatinine Urine Total Protein 04/15/18 04/15/18 04/15/18 05:29 08:50 09:32 WBC RBC Hgb Hct MCV RDW Plt Count Lymph % (Auto) Lymph # Seg Neutrophils % Seg Neutrophils # POC ABG pH POC ABG pCO2 29.8 L POC ABG pO2 Sodium Potassium Chloride Carbon Dioxide BUN Creatinine Glucose POC Glucose 64 L 114 H Lactic Acid Calcium Phosphorus Alkaline Phosphatase Ammonia NT-Pro-B Natriuret Pep Serum Total Protein Total Protein Albumin Pzrec-8-Jjxbdfqfq PEP Interpretation Urine WBC (Auto) Urine Creatinine Urine Total Protein 04/15/18 04/16/18 04/16/18 11:38 03:51 03:51 WBC RBC Hgb Hct MCV 98 H RDW 15.5 H Plt Count Lymph % (Auto) Lymph # Seg Neutrophils % Seg Neutrophils # POC ABG pH POC ABG pCO2 POC ABG pO2 Sodium Potassium Chloride Carbon Dioxide 19 L BUN 39 H Creatinine 4.2 H Glucose POC Glucose 69 L Lactic Acid Calcium 8.1 L Phosphorus Alkaline Phosphatase Ammonia NT-Pro-B Natriuret Pep Serum Total Protein Total Protein Albumin Oudbq-3-Pqgcfgkus PEP Interpretation Urine WBC (Auto) Urine Creatinine Urine Total Protein 04/17/18 04/17/18 04/17/18 04:33 06:10 09:45 WBC RBC Hgb Hct MCV RDW Plt Count Lymph % (Auto) Lymph # Seg Neutrophils % Seg Neutrophils # POC ABG pH POC ABG pCO2 28.0 L POC ABG pO2 106 H Sodium Potassium Chloride Carbon Dioxide 17 L BUN 47 H Creatinine 4.4 H Glucose 143 H 127 H POC Glucose Lactic Acid Calcium 8.3 L Phosphorus Alkaline Phosphatase Ammonia NT-Pro-B Natriuret Pep Serum Total Protein Total Protein Albumin Tyypz-8-Cqqgakevh PEP Interpretation Urine WBC (Auto) Urine Creatinine Urine Total Protein 04/17/18 04/17/18 04/17/18 17:16 20:40 23:56 WBC RBC Hgb Hct MCV RDW Plt Count Lymph % (Auto) Lymph # Seg Neutrophils % Seg Neutrophils # POC ABG pH 7.308 L POC ABG pCO2 31.3 L POC ABG pO2 61 L Sodium Potassium Chloride Carbon Dioxide BUN Creatinine Glucose POC Glucose 128 H 45 L Lactic Acid Calcium Phosphorus Alkaline Phosphatase Ammonia NT-Pro-B Natriuret Pep Serum Total Protein Total Protein Albumin Biefy-9-Sbeczjkzd PEP Interpretation Urine WBC (Auto) Urine Creatinine Urine Total Protein 04/18/18 04/18/18 04/19/18 00:06 04:30 04:40 WBC RBC Hgb Hct MCV RDW Plt Count Lymph % (Auto) Lymph # Seg Neutrophils % Seg Neutrophils # POC ABG pH POC ABG pCO2 POC ABG pO2 Sodium Potassium 3.5 L Chloride Carbon Dioxide 17 L 19 L BUN 51 H 56 H Creatinine 4.3 H 4.2 H Glucose 63 L POC Glucose 47 L Lactic Acid Calcium 8.0 L Phosphorus Alkaline Phosphatase Ammonia NT-Pro-B Natriuret Pep Serum Total Protein Total Protein Albumin Yhioj-6-Pxrmcndbf PEP Interpretation Urine WBC (Auto) Urine Creatinine Urine Total Protein 04/19/18 04/20/1819 12:30 04:39 11:35 WBC RBC Hgb Hct MCV RDW Plt Count Lymph % (Auto) Lymph # Seg Neutrophils % Seg Neutrophils # POC ABG pH POC ABG pCO2 POC ABG pO2 Sodium Potassium 3.5 L Chloride Carbon Dioxide 18 L BUN 63 H Creatinine 4.8 H Glucose 101 H POC Glucose 61 L 114 H Lactic Acid Calcium 7.8 L Phosphorus Alkaline Phosphatase Ammonia NT-Pro-B Natriuret Pep Serum Total Protein Total Protein Albumin Boida-1-Fhqegysmi PEP Interpretation Urine WBC (Auto) Urine Creatinine Urine Total Protein 04/20/18 04/21/18 04/21/18 23:32 03:18 05:41 WBC RBC Hgb Hct MCV RDW Plt Count Lymph % (Auto) Lymph # Seg Neutrophils % Seg Neutrophils # POC ABG pH POC ABG pCO2 POC ABG pO2 Sodium Potassium 3.2 L Chloride Carbon Dioxide BUN 40 H Creatinine 2.9 H Glucose 145 H POC Glucose 125 H 159 H Lactic Acid Calcium Phosphorus Alkaline Phosphatase Ammonia NT-Pro-B Natriuret Pep Serum Total Protein Total Protein Albumin Jvirk-6-Hxtfyiybr PEP Interpretation Urine WBC (Auto) Urine Creatinine Urine Total Protein 04/21/18 04/21/18 04/21/18 08:32 15:07 16:50 WBC RBC Hgb Hct MCV RDW Plt Count Lymph % (Auto) Lymph # Seg Neutrophils % Seg Neutrophils # POC ABG pH POC ABG pCO2 POC ABG pO2 Sodium Potassium Chloride Carbon Dioxide BUN Creatinine Glucose POC Glucose 128 H 128 H 122 H Lactic Acid Calcium Phosphorus Alkaline Phosphatase Ammonia NT-Pro-B Natriuret Pep Serum Total Protein Total Protein Albumin Ngkcy-2-Cslfnfmla PEP Interpretation Urine WBC (Auto) Urine Creatinine Urine Total Protein 04/22/18 04/22/18 04/22/18 00:36 03:44 05:20 WBC RBC Hgb Hct MCV RDW Plt Count Lymph % (Auto) Lymph # Seg Neutrophils % Seg Neutrophils # POC ABG pH POC ABG pCO2 POC ABG pO2 Sodium Potassium 3.2 L Chloride Carbon Dioxide BUN 53 H Creatinine 3.3 H Glucose 192 H POC Glucose 153 H 190 H Lactic Acid Calcium 7.6 L Phosphorus Alkaline Phosphatase Ammonia NT-Pro-B Natriuret Pep Serum Total Protein Total Protein Albumin Ribma-4-Vyyyiacqs PEP Interpretation Urine WBC (Auto) Urine Creatinine Urine Total Protein 04/22/18 04/22/1819 07:59 10:20 12:13 WBC RBC 2.95 L Hgb 9.4 L Hct 28.6 L MCV RDW Plt Count 129 L Lymph % (Auto) 5.7 L Lymph # 0.6 L Seg Neutrophils % 88.7 H Seg Neutrophils # 9.1 H POC ABG pH POC ABG pCO2 POC ABG pO2 Sodium Potassium Chloride Carbon Dioxide BUN Creatinine Glucose POC Glucose 193 H 193 H Lactic Acid Calcium Phosphorus Alkaline Phosphatase Ammonia NT-Pro-B Natriuret Pep Serum Total Protein Total Protein Albumin Evbkp-5-Qplyuelln PEP Interpretation Urine WBC (Auto) Urine Creatinine Urine Total Protein 04/22/18 04/23/18 04/23/18 17:42 00:24 04:40 WBC RBC Hgb Hct MCV RDW Plt Count Lymph % (Auto) Lymph # Seg Neutrophils % Seg Neutrophils # POC ABG pH POC ABG pCO2 POC ABG pO2 Sodium Potassium 3.4 L Chloride Carbon Dioxide BUN 33 H Creatinine 2.4 H Glucose 118 H POC Glucose 133 H 141 H Lactic Acid Calcium 8.1 L Phosphorus Alkaline Phosphatase Ammonia NT-Pro-B Natriuret Pep Serum Total Protein Total Protein Albumin Lizyb-4-Vxyzjgbwz PEP Interpretation Urine WBC (Auto) Urine Creatinine Urine Total Protein 04/23/18 04/23/18 04/23/18 05:49 08:44 10:08 WBC RBC Hgb Hct MCV RDW Plt Count Lymph % (Auto) Lymph # Seg Neutrophils % Seg Neutrophils # POC ABG pH POC ABG pCO2 POC ABG pO2 Sodium Potassium Chloride Carbon Dioxide BUN Creatinine Glucose POC Glucose 112 H 119 H 139 H Lactic Acid Calcium Phosphorus Alkaline Phosphatase Ammonia NT-Pro-B Natriuret Pep Serum Total Protein Total Protein Albumin Srulm-3-Pdxihhhyd PEP Interpretation Urine WBC (Auto) Urine Creatinine Urine Total Protein 04/23/18 04/24/18 04/24/18 21:15 03:55 05:37 WBC RBC Hgb Hct MCV RDW Plt Count Lymph % (Auto) Lymph # Seg Neutrophils % Seg Neutrophils # POC ABG pH POC ABG pCO2 POC ABG pO2 Sodium Potassium Chloride Carbon Dioxide BUN 41 H Creatinine 3.2 H Glucose 117 H POC Glucose 130 H 114 H Lactic Acid Calcium 8.0 L Phosphorus Alkaline Phosphatase Ammonia NT-Pro-B Natriuret Pep Serum Total Protein Total Protein Albumin Ydugx-8-Ocfzmcrua PEP Interpretation Urine WBC (Auto) Urine Creatinine Urine Total Protein 04/24/18 04/24/18 04/24/18 14:30 14:38 14:38 WBC RBC 2.72 L Hgb 8.6 L Hct 26.2 L MCV RDW Plt Count Lymph % (Auto) 10.7 L Lymph # 0.9 L Seg Neutrophils % 83.7 H Seg Neutrophils # POC ABG pH POC ABG pCO2 POC ABG pO2 Sodium Potassium Chloride Carbon Dioxide BUN Creatinine Glucose 205 H POC Glucose < 40 L Lactic Acid Calcium Phosphorus Alkaline Phosphatase Ammonia NT-Pro-B Natriuret Pep Serum Total Protein Total Protein Albumin Bljeo-5-Lhhqrnukc PEP Interpretation Urine WBC (Auto) Urine Creatinine Urine Total Protein 04/24/18 04/25/18 04/25/18 23:35 04:26 04:26 WBC RBC 2.68 L Hgb 8.5 L Hct 26.1 L MCV RDW Plt Count Lymph % (Auto) 10.5 L Lymph # 1.1 L Seg Neutrophils % 83.2 H Seg Neutrophils # 8.5 H POC ABG pH POC ABG pCO2 POC ABG pO2 Sodium Potassium Chloride 97.7 L Carbon Dioxide BUN 47 H Creatinine 3.6 H Glucose 153 H POC Glucose 166 H Lactic Acid Calcium 7.9 L Phosphorus Alkaline Phosphatase Ammonia NT-Pro-B Natriuret Pep Serum Total Protein Total Protein Albumin Cshvj-9-Doxqcndxe PEP Interpretation Urine WBC (Auto) Urine Creatinine Urine Total Protein 04/25/18 04/25/18 05:37 11:56 WBC RBC Hgb Hct MCV RDW Plt Count Lymph % (Auto) Lymph # Seg Neutrophils % Seg Neutrophils # POC ABG pH POC ABG pCO2 POC ABG pO2 Sodium Potassium Chloride Carbon Dioxide BUN Creatinine Glucose POC Glucose 171 H 165 H Lactic Acid Calcium Phosphorus Alkaline Phosphatase Ammonia NT-Pro-B Natriuret Pep Serum Total Protein Total Protein Albumin Ahoff-3-Qzrsbfpig PEP Interpretation Urine WBC (Auto) Urine Creatinine Urine Total Protein
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
--- NOTE | 2018-04-25 14:48 | Progress Note ---
Assessment and Plan Assessment and plan: 42-year-old woman who presented after a witnessed seizure. She was intubated, admitted to the ICU. pmh; HTN, Systolic CHF(EF 20%), CVA, DM, Seizure Disorder, COPD, Pulmonary HTN, CAD S/P Stent Placement -She presented, with acute seizures which were intractable. She was intubated and admitted to the ICU, she received antiseizure medications after which seizures ceased. She received neurology consult, brain imaging was negative for any acute findings -She received wound care for lower extremity wounds. -She was seen by cardiology for right bundle branch block, PAF and systolic CHF with EF of 20%, cardiology recommended conservative managements, her medication optimized, she was treated with eliquis for stroke prophylaxis -She developed aspiration pneumonia, she is being treated with IV antibiotics per infectious disease, she is to continue antibiotics until 04/23/89 to complete 5 days -she had blas and required a few HD sessions, kidney function improved, she has known hx of stage 4 ckd -She was extubated on 04/22/18, transferred to telemetry floor on 04/23 -she pulled out her vas cath on morning of 04/24, had bleeding from it, vas cath now removed, and pressure dressing applied. Hg was stable, bleeding resolved -she was hypoglycemic and improved on dextrose, hypoglycemia was due to being npo -on 04/25, permacath was placed, and patient is planned for continued HD in the near future -ashley post about outpatient HD set up Diagnosis Status epilepticus Acute respiratory failure secondary to seizure episode, on MV greater than 96 hours Aspiration pna BLAS on CKD- vasomotor nephropathy Right bundle branch block paroxysmal atrial fibrillation systolic CHF EF 20% Hypercoagulable state LE wounds, POA, acute blood loss anemia hypoglycemia NOK is brother [phone], she previously had [employer] with kaci at home History Interval history: No seizures no fevers no agitation, no vomiting no sob, no cp, Hospitalist Physical - Physical exam Narrative exam: General.: Appears well, no distress, nontoxic HEENT: Moist mucous membranes, extraocular muscles intact, no lymphadenopathy Neck: supple Cardiac: S1-S2 heard Lungs: clear to auscultation bilaterally Abdomen: soft , nontender, nondistended, bowel sounds positive Extremities: no edema clubbing or cyanosis Skin: LE wounds, POA Neurologic: Alert, oriented, moves all extremities, poor insight psych; calm and cooperative - Constitutional Vitals: Temp Pulse Resp BP Pulse Ox 98.2 F 97 H 19 139/86 100 04/25/18 04:00 04/25/18 14:01 04/25/18 14:01 04/25/18 10:31 04/25/18 08:32 General appearance: Present: severe distress Results - Labs CBC & Chem 7: 04/25/18 04:26 04/25/18 04:26 Labs: Laboratory Last Values WBC 10.3 K/mm3 (4.5-11.0) 04/25/18 04:26 RBC 2.68 M/mm3 (3.65-5.03) L 04/25/18 04:26 Hgb 8.5 gm/dl (10.1-14.3) L 04/25/18 04:26 Hct 26.1 % (30.3-42.9) L 04/25/18 04:26 MCV 97 fl (79-97) 04/25/18 04:26 MCH 32 pg (28-32) 04/25/18 04:26 MCHC 33 % (30-34) 04/25/18 04:26 RDW 15.0 % (13.2-15.2) 04/25/18 04:26 Plt Count 188 K/mm3 (140-440) 04/25/18 04:26 Lymph % (Auto) 10.5 % (13.4-35.0) L 04/25/18 04:26 [place] % (Auto) 4.5 % (0.0-7.3) 04/25/18 04:26 Eos % (Auto) 1.2 % (0.0-4.3) 04/25/18 04:26 Baso % (Auto) 0.6 % (0.0-1.8) 04/25/18 04:26 Lymph # 1.1 K/mm3 (1.2-5.4) L 04/25/18 04:26 [place] # 0.5 K/mm3 (0.0-0.8) 04/25/18 04:26 Eos # 0.1 K/mm3 (0.0-0.4) 04/25/18 04:26 Baso # 0.1 K/mm3 (0.0-0.1) 04/25/18 04:26 Seg Neutrophils % 83.2 % (40.0-70.0) H 04/25/18 04:26 Seg Neutrophils # 8.5 K/mm3 (1.8-7.7) H 04/25/18 04:26 PT 14.3 Sec. (12.2-14.9) 04/13/18 13:41 INR 1.07 (0.87-1.13) 04/13/18 13:41 APTT 28.9 Sec. (24.2-36.6) 04/13/18 13:41 Thrombin Time 17.3 Sec. (15.1-19.6) 04/13/18 13:41 POC ABG pH 7.308 (7.35-7.45) L 04/17/18 20:40 POC ABG pCO2 31.3 (35-45) L 04/17/18 20:40 POC ABG pO2 61 (80-105) L 04/17/18 20:40 POC ABG HCO3 15.7 04/17/18 20:40 POC ABG Total CO2 17 04/17/18 20:40 POC ABG O2 Sat 89 04/17/18 20:40 POC ABG Base Excess -11 04/17/18 20:40 FiO2 30 % 04/17/18 20:40 Sodium 139 mmol/L (137-145) 04/25/18 04:26 Potassium 3.6 mmol/L (3.6-5.0) 04/25/18 04:26 Chloride 97.7 mmol/L (98-107) L 04/25/18 04:26 Carbon Dioxide 23 mmol/L (22-30) 04/25/18 04:26 Anion Gap 22 mmol/L 04/25/18 04:26 BUN 47 mg/dL (7-17) H 04/25/18 04:26 Creatinine 3.6 mg/dL (0.7-1.2) H 04/25/18 04:26 Estimated GFR 14 ml/min 04/25/18 04:26 BUN/Creatinine Ratio 13 % 04/25/18 04:26 Glucose 153 mg/dL (65-100) H 04/25/18 04:26 POC Glucose 165 (70-105) H 04/25/18 11:56 Lactic Acid 1.10 mmol/L (0.7-2.0) 04/13/18 16:23 Calcium 7.9 mg/dL (8.4-10.2) L 04/25/18 04:26 Phosphorus 3.10 mg/dL (2.5-4.5) 04/22/18 10:20 Magnesium 2.00 mg/dL (1.7-2.3) 04/22/18 10:20 Total Bilirubin 0.60 mg/dL (0.1-1.2) 04/14/18 08:01 Direct Bilirubin 0.2 mg/dL (0-0.2) 04/13/18 13:59 Indirect Bilirubin 0.3 mg/dL 04/13/18 13:59 AST 14 units/L (5-40) 04/14/18 08:01 ALT 7 units/L (7-56) 04/14/18 08:01 Alkaline Phosphatase 106 units/L (35-129) 04/14/18 08:01 Ammonia 47.0 umol/L (25-60) 04/16/18 11:17 Total Creatine Kinase 92 units/L (30-135) 04/13/18 13:59 CK-MB (CK-2) 3.7 ng/mL (0.0-4.0) 04/13/18 13:59 CK-MB (CK-2) Rel Index 4.0 (0-4) 04/13/18 13:59 Troponin T 0.010 ng/mL (0.00-0.029) 04/13/18 13:59 NT-Pro-B Natriuret Pep 68102 pg/mL (0-450) H 04/13/18 13:59 Serum Total Protein 5.6 g/dL (6.1-8.1) L 04/15/18 03:17 Total Protein 6.0 g/dL (6.3-8.2) L 04/14/18 08:01 Albumin 2.4 g/dL (3.8-4.8) L 04/15/18 03:17 Albumin/Globulin Ratio 0.8 % 04/14/18 08:01 Xeqon-3-Vnhszdjgz 0.4 g/dL (0.2-0.3) H 04/15/18 03:17 Jswec-1-Udefcfsym 0.9 g/dL (0.5-0.9) 04/15/18 03:17 Beta Globulins 0.4 g/dL (0.2-0.5) 04/15/18 03:17 Gamma Globulins 1.2 g/dL (0.8-1.7) 04/15/18 03:17 Abnorm Protein Band 1 see below 04/15/18 03:17 PEP Interpretation see below H 04/15/18 03:17 Lipase 44 units/L (13-60) 04/13/18 13:59 Urine Color Diane (Yellow) 04/13/18 14:26 Urine Turbidity Cloudy (Clear) 04/13/18 14:26 Urine pH 5.0 (5.0-7.0) 04/13/18 14:26 Ur Specific [place] 1.017 (1.003-1.030) 04/13/18 14:26 Urine Protein >500 mg/dL (Negative) 04/13/18 14:26 Urine Glucose (UA) >=500 mg/dL (Negative) 04/13/18 14:26 Urine Ketones Neg mg/dL (Negative) 04/13/18 14:26 Urine Blood Neg (Negative) 04/13/18 14:26 Urine Nitrite Neg (Negative) 04/13/18 14:26 Urine Bilirubin Neg (Negative) 04/13/18 14:26 Urine Urobilinogen < 2.0 mg/dL (<2.0) 04/13/18 14:26 Ur Leukocyte Esterase Neg (Negative) 04/13/18 14:26 Urine WBC (Auto) 22.0 /HPF (0.0-6.0) H 04/13/18 14:26 Urine RBC (Auto) 17.0 /HPF (0.0-6.0) 04/13/18 14:26 U Epithel Cells (Auto) 3.0 /HPF (0-13.0) 04/13/18 14:26 Urine Bacteria (Auto) 4+ /HPF (Negative) 04/13/18 14:26 Urine Mucus Few /HPF 04/13/18 14:26 Urine Yeast (Budding) 3+ /HPF 04/13/18 14:26 Urine Eosinophils 7% (None Seen) 04/14/18 11:23 Urine Creatinine 85.5 mg/dL (0.1-20.0) H 04/14/18 11:23 Protein/Creatinin Ratio 1.78 04/14/18 11:23 Urine Sodium 82 mmol/L 04/14/18 11:23 Fraction Sodium Excret 2.3 04/14/18 11:23 Urine Total Protein 152 mg/dL (5-11.8) H 04/14/18 11:23 Urine Opiates Screen Presumptive negative 04/13/18 14:26 Urine Methadone Screen Presumptive negative 04/13/18 14:26 Ur Barbiturates Screen Presumptive negative 04/13/18 14:26 Levetiracetam 37.6 mcg/mL 04/13/18 19:19 Ur Phencyclidine Scrn Presumptive negative 04/13/18 14:26 Ur Amphetamines Screen Presumptive negative 04/13/18 14:26 U Benzodiazepines Scrn Presumptive negative 04/13/18 14:26 Urine Cocaine Screen Presumptive negative 04/13/18 14:26 U Marijuana (THC) Screen Presumptive negative 04/13/18 14:26 Drugs of Abuse Note Disclamer 04/13/18 14:26 Proteinase 3 (PR3) Ab <1.0 AI (<1.0) 04/14/18 11:56 Myeloperoxidase Ab <1.0 AI (<1.0) 04/14/18 11:56 Double Strand DNA Ab <1 IU/mL (<=4) 04/14/18 11:56 Complement C3 155 mg/dL (83-193) 04/14/18 11:56 Complement C4 28 mg/dL (15-57) 04/14/18 11:56 Hepatitis A IgM Ab Non-reactive (NonReactive) 04/14/18 11:56 Hep Bs Antigen Non-reactive (Negative) 04/14/18 11:56 Hep B Core IgM Ab Non-reactive (NonReactive) 04/14/18 11:56 Hepatitis C Antibody Non-reactive (NonReactive) 04/14/18 11:56 Nutrition/Malnutrition Assess - Dietary Evaluation Nutrition/Malnutrition Findings: Nutrition Notes Start: 04/14/18 09:47 Freq: Status: Active Protocol: Document 04/25/18 14:07 RM (Rec: 04/25/18 14:23 RM [id number]) Nutrition Notes Initial or Follow up Brief Note Subjective/Other Information Pt asleep at time of visit. Nutrition Intervention Follow-Up By: 04/26/18 Additional Comments Follow for diet advancement, PO intakes
--- NOTE | 2018-04-25 15:06 | Event Note ---
Date: 04/25/[address] Swan regarding dialysis access. Request for permcath. Will bring down for permcath placement.
[2018-04-25] MEDS ORDERED: HEPARIN 10,000 UNITS/10 ML ONE (15:17)
[2018-04-25] MEDS ORDERED: XYLOCAINE 2% INFILTRATI ONE (15:17)
[2018-04-25] MEDS ORDERED: SUBLIMAZE ONE (15:17)
[2018-04-25] MEDS ORDERED: HEPARIN/NS 5000 UNIT/500ML(CATH LAB) 500 ML IR ONE (15:17)
[2018-04-25] MEDS ORDERED: VERSED ONE (15:17)
[2018-04-25] MEDS ORDERED: ANCEF/STERILE WATER 2 GM/20 ML 2 GM/20 ML SYRINGE IV ONE (15:19)
[2018-04-25] MEDS ORDERED: NACL 0.9% 500 ML 500 ML ONE (15:19)
--- NOTE | 2018-04-25 16:14 | Post Operative Note ---
Date of procedure: 04/25/18 Pre-op diagnosis: ESRD requiring hemodialysis access Post-op diagnosis: same Procedure: R IJ permcath placement Anesthesia: local (w/ conscious sedation) Surgeon: SOL SABA Estimated blood loss: minimal Condition: stable Disposition: floor
--- NOTE | 2018-04-25 16:16 | Operative Report ---
Operative Report Operative Report: EXAM: 1. Ultrasound-guided puncture of the right internal jugular vein 2. Fluoroscopic-guided placement of a right internal jugular tunneled cuffed hemodialysis catheter. DATE: 04/25/18 INDICATION: Acute renal failure requiring hemodialysis access MEDICATIONS: Please see nursing report for full details. DEVICES: 23 cm tip to cuff 15 Fr dual lumen hemodialysis catheter [employer] ATTORNEY: SOL SABA MD CONTRAST: None PROCEDURE: The risks, benefits, and alternatives were discussed and informed consent was obtained. The patient was transported to the angiography suite in satisfactory/stable condition and was transported onto the angiography table. The patient's right internal jugular vein was assessed with ultrasound and determined to be patent prior to procedure. The patient was prepped and draped in a sterile fashion. The puncture site was anesthetized. Under sonographic guidance, the right in ternal jugular vein was punctured with a 21-gauge micropuncture needle and a 0.018 inch wire was advanced into the inferior vena cava. The micropuncture needle was exchanged for a transitional dilator and the wire was retracted into the right atrium to aquiles intravascular distance. The wire and inner dilator were removed. 0.035 inch wire was advanced through the transitional dilator into the inferior vena cava. A suitable exit site was identified on the patient's chest inferior and lateral to the venotomy. The site was anesthetized with local anesthetic and the track was anesthetized. Dermatotomy was made. The PermCath was attached to the tunneling device and tunneled between the dermatotomy to the venotomy. Over the 0.035 inch wire, serial dilatation was performed with ultimate curry cement of a peel-away sheath. The catheter was advanced through the peel-away sheath after the wire was removed and positioned centrally under fluoroscopic guidance. The peel-away sheath was removed. 4-0 Vicryl suture was used to close the venotomy and Dermabond was then applied. 2-0 Ethilon suture was used to secure the catheter at the dermatotomy. The catheter was charged with heparin 1000 units per mL of space. Sterile dressing and Biopatch applied. The patient was transferred from the angiography suite back to the floor in stable condition. FINDINGS: 1. Excellent flow was obtained through the dialysis catheter with 20 mL syringes. 2. The catheter tip is in the right atrium. IMPRESSION: 1. Successful ultrasound and fluoroscopically guided placement of a right inter nal jugular tunneled cuffed hemodialysis catheter.
--- NOTE | 2018-04-25 17:06 | Progress Note ---
Assessment and Plan ESRD Her renal function has declined. Placement of access requested;previous Vascath dislodged. She has altered mental status. Brother at bedside. Discussed risks, benefits and alternatives with him in detail. He acknowledges understanding and agrees to proceed with placement of permacath. Subjective Date of service: 04/25/18 Principal diagnosis: Acute respiratory failure, secondary to seizure episode. Chronic kidney di Interval history: She is 42 year female with history CAD, CVA, CHF, COPD, chronic kidney disease. Current admission for seizures, chest pain and worsening of renal disease. She had renal replacement with Vascath that had been placed early during her admission. Her Vascath became dislodged. Her renal function had some improvement at that time so catheter was not immediately replaced to monitor for signs of continued renal recovery. Her renal function has subsequently declined and replacement of permacath requested. Objective - Constitutional Vitals: Vital Signs - 12hr 04/25/18 04/25/18 04/25/18 08:00 08:07 08:32 Temperature Pulse Rate 119 H Pulse Rate [ 96 H 97 H Anterior Bilateral Throughout] Pulse Rate [ Apical] Pulse Rate [ From Monitor] Respiratory Rate Respiratory 18 18 Rate [Anterior Bilateral Throughout] Blood Pressure 139/86 O2 Sat by Pulse 100 Oximetry 04/25/18 04/25/18 04/25/18 10:00 10:31 14:00 Temperature Pulse Rate 113 H 119 H Pulse Rate [ 96 H Anterior Bilateral Throughout] Pulse Rate [ 100 H Apical] Pulse Rate [ 112 H From Monitor] Respiratory 20 Rate Respiratory 18 Rate [Anterior Bilateral Throughout] Blood Pressure 139/86 O2 Sat by Pulse 100 Oximetry 04/25/18 04/25/18 04/25/18 14:01 16:37 16:41 Temperature 98.1 F Pulse Rate 107 H Pulse Rate [ 97 H Anterior Bilateral Throughout] Pulse Rate [ Apical] Pulse Rate [ From Monitor] Respiratory Rate Respiratory 19 Rate [Anterior Bilateral Throughout] Blood Pressure 128/78 O2 Sat by Pulse 98 Oximetry General appearance: Present: obese - Neck Neck: supple, normal ROM - Respiratory Respiratory effort: normal, other (nonlabored at rest) Extremities: Full ROM - Integumentary Integumentary: warm, dry, normal turgor - Psychiatric Psychiatric: cooperative - Labs CBC & Chem 7: 04/25/18 04:26 04/25/18 04:26 Labs: Abnormal lab results 04/24/18 04/24/18 04/25/18 Range/Units 14:30 23:35 04:26 RBC 2.68 L (3.65-5.03) M/mm3 Hgb 8.5 L (10.1-14.3) gm/dl Hct 26.1 L (30.3-42.9) % Lymph % (Auto) 10.5 L (13.4-35.0) % Lymph # 1.1 L (1.2-5.4) K/mm3 Seg Neutrophils % 83.2 H (40.0-70.0) % Seg Neutrophils # 8.5 H (1.8-7.7) K/mm3 Chloride (98-107) mmol/L BUN (7-17) mg/dL Creatinine (0.7-1.2) mg/dL Glucose (65-100) mg/dL POC Glucose < 40 L 166 H (70-105) Calcium (8.4-10.2) mg/dL 04/25/18 04/25/18 04/25/18 Range/Units 04:26 05:37 11:56 RBC (3.65-5.03) M/mm3 Hgb (10.1-14.3) gm/dl Hct (30.3-42.9) % Lymph % (Auto) (13.4-35.0) % Lymph # (1.2-5.4) K/mm3 Seg Neutrophils % (40.0-70.0) % Seg Neutrophils # (1.8-7.7) K/mm3 Chloride 97.7 L (98-107) mmol/L BUN 47 H (7-17) mg/dL Creatinine 3.6 H (0.7-1.2) mg/dL Glucose 153 H (65-100) mg/dL POC Glucose 171 H 165 H (70-105) Calcium 7.9 L (8.4-10.2) mg/dL Medications & Allergies - Medications Allergies/Adverse Reactions: Allergies No Known Allergies Allergy (Verified 04/17/18 10:03) Home Medications: Home Medications Medication Instructions Recorded Confirmed Last Taken Type Lispro Insulin [Humalog] 15 unit SQ BID 07/17/17 04/23/18 02/16/18 History Aspirin EC [Aspirin Enteric Coated 81 mg PO QDAY #30 tablet 07/22/17 04/23/18 02/17/18 Rx TAB] 81mg Insulin NPH, Human [NovoLIN N] 15 unit SUB-Q BID 12/02/17 12/02/17 12/01/17 History Lantus 45 units SUB-Q QHS 12/02/17 12/02/17 11/30/17 History Labetalol [Normodyne TAB] 200 mg PO BID #60 tablet 12/04/17 Unknown Rx Sulfamethoxazole/Trimethoprim 1 each PO BID #14 tablet 12/04/17 Unknown Rx [Bactrim DS TAB] amLODIPine [Norvasc] 10 mg PO QDAY #30 tablet 12/04/17 04/23/18 Unknown Rx Apixaban [Eliquis] 2.5 mg PO BID 60 Days tablet 02/22/18 04/23/18 Unknown Rx AtorvaSTATin [Lipitor] 20 mg PO QHS #30 tablet 02/22/18 04/23/18 Unknown Rx Furosemide [Lasix TAB] 80 mg PO 0600,1800 #30 tablet 02/22/18 Unknown Rx Insulin Glargine,Hum.rec.anlog 20 unit SQ QHS #30 insuln.pen 02/22/18 04/23/18 Unknown Rx [Lantus Solostar] Lisinopril [Zestril TAB] 20 mg PO QDAY #30 tablet 02/22/18 04/23/18 Unknown Rx Lispro Insulin [Humalog] 0 unit SUB-Q ACHS units 02/22/18 04/23/18 Unknown Rx Metoprolol Xl [Metoprolol 25 mg PO QDAY #30 tablet 02/22/18 Unknown Rx SUCCINATE ER TAB] Potassium Chloride [K-Dur] 20 meq PO Q12HR #60 tablet 02/22/18 04/23/18 Unknown Rx levETIRAcetam [Keppra TAB] 500 mg PO BID #90 tablet 02/22/18 04/23/18 Unknown Rx oxyCODONE /ACETAMINOPHEN [Percocet 1 tab PO Q6H PRN #30 tablet 02/22/18 04/23/18 Unknown Rx 5/325 mg] hydrALAZINE [Apresoline TAB] 100 mg PO TID 04/23/18 04/23/18 Unknown History Active Medications: Generic Name Dose Route Start Last Admin Trade Name Freq PRN Reason Stop Dose Admin Albuterol 2.5 mg 04/13/18 14:57 Proventil IH Q3H PRN Shortness Of Breath Albuterol/Ipratropium 1 ampul 04/23/18 20:00 04/25/18 14:00 Duoneb *Not For Prn Use* IH 1 ampul TIDRT CECILE Administration Apixaban 2.5 mg 04/14/18 18:00 04/25/18 10:31 Eliquis FEEDTUBE 2.5 mg Q12HR CECILE Administration Protocol Atorvastatin Calcium 20 mg 04/23/18 22:00 04/24/18 21:41 Lipitor PO 20 mg QHS CECILE Administration Benzocaine/Menthol 1 each 04/23/18 08:51 Cepacol X Strength MM Q1HR PRN Sore Throat Dextrose 50 ml 04/14/18 19:05 04/18/18 00:15 D50w (25gm) Syringe IV 50 ml PRN PRN Administration Hypoglycemia Famotidine 20 mg 04/15/18 10:00 04/25/18 10:31 Pepcid PO 20 mg DAILY CECILE Administration Hydralazine HCl 10 mg 04/14/18 16:15 04/19/18 18:45 Apresoline IV 10 mg Q4HR PRN Administration SBP >150 or DBP >90 Hydrophilic Ointment 1 applic 04/13/18 13:43 Vaseline Lip Therapy TP Q2HR PRN Dry Lips Sodium Chloride 100 mls @ 999 mls/hr 04/22/18 17:11 Nacl 0.9% IV MIRI PRN Hypotension Levetiracetam 500 mg 04/22/18 22:00 04/25/18 10:31 Keppra PO 500 mg BID CECILE Administration Metoprolol Tartrate 25 mg 04/22/18 10:00 04/25/18 10:31 Lopressor PO 25 mg BID CECILE Administration Multi-Ingred Cream/Lotion/Oil/Oint 1 applic 04/13/18 13:43 Artificial Tears Ophth Oint OU Q4HR PRN Dry Eye(s) Prednisone 40 mg 04/25/18 10:00 04/25/18 12:53 Deltasone PO 40 mg QDAY CECILE Administration Sodium Chloride 10 ml 04/13/18 22:00 04/25/18 10:32 Sodium Chloride Flush Syringe 10 Ml IV 10 ml BID CECILE Administration Sodium Chloride 10 ml 04/13/18 14:57 04/17/18 05:42 Sodium Chloride Flush Syringe 10 Ml IV 10 ml PRN PRN Administration LINE FLUSH
[2018-04-26] MEDS: DUONEB *Not for PRN Use IH SCH ×3 (07:55→20:06)
[2018-04-26] MEDS ORDERED: NACL 0.9% 100 ML IV PRN (08:52)
[2018-04-26] MEDS: HumuLIN R SUB-Q SCH ×4 (08:55→21:55)
[2018-04-26] MEDS: DELTASONE PO SCH (09:39)
[2018-04-26] MEDS: KEPPRA PO SCH ×2 (09:39→21:53)
[2018-04-26] MEDS: PEPCID PO SCH (09:40)
[2018-04-26] MEDS: SODIUM CHLORIDE FLUSH SYRINGE 10 ML IV SCH ×2 (09:45→21:53)
[2018-04-26] MEDS: LOPRESSOR PO SCH ×2 (10:00→21:54)
[2018-04-26] MEDS: ELIQUIS FEEDTUBE SCH ×2 (10:00→21:53)
--- NOTE | 2018-04-26 10:50 | Progress Note ---
Assessment and Plan Assessment and plan: 42-year-old woman who presented after a witnessed seizure. She was intubated, admitted to the ICU. pmh; HTN, Systolic CHF(EF 20%), CVA, DM, Seizure Disorder, COPD, Pulmonary HTN, CAD S/P Stent Placement -She presented, with acute seizures which were intractable. She was intubated and admitted to the ICU, she received antiseizure medications after which seizures ceased. She received neurology consult, brain imaging was negative for any acute findings -She received wound care for lower extremity wounds. -She was seen by cardiology for right bundle branch block, PAF and systolic CHF with EF of 20%, cardiology recommended conservative managements, her medication optimized, she was treated with eliquis for stroke prophylaxis -She developed aspiration pneumonia, she completed antibiotics which were recommended per ID, has been stable off antibiotics -she had blas and required a few HD sessions, kidney function improved, she has known hx of stage 4 ckd -She was extubated on 04/22/18, transferred to telemetry floor on 04/23 -she pulled out her vas cath on morning of 04/24, had bleeding from it, vas cath now removed, and pressure dressing applied. 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[facility]; co home with services after HD set up History Interval history: No seizures no fevers no agitation, no vomiting no sob, no cp, Hospitalist Physical - Physical exam Narrative exam: General.: Appears well, no distress, nontoxic HEENT: Moist mucous membranes, extraocular muscles intact, no lymphadenopathy Neck: supple Cardiac: S1-S2 heard Lungs: clear to auscultation bilaterally Abdomen: soft , nontender, nondistended, bowel sounds positive Extremities: no edema clubbing or cyanosis Skin: LE wounds, POA Neurologic: Alert, oriented, moves all extremities, poor insight psych; calm and cooperative - Constitutional Vitals: Temp Pulse Resp BP Pulse Ox 98.0 F 86 20 134/85 94 04/26/18 07:47 04/26/18 07:47 04/26/18 07:47 04/26/18 07:47 04/26/18 07:47 General appearance: Present: severe distress Results - Labs CBC & Chem 7: 04/25/18 04:26 04/26/18 15:25 Labs: Laboratory Last Values WBC 10.3 K/mm3 (4.5-11.0) 04/25/18 04:26 RBC 2.68 M/mm3 (3.65-5.03) L 04/25/18 04:26 Hgb 8.5 gm/dl (10.1-14.3) L 04/25/18 04:26 Hct 26.1 % (30.3-42.9) L 04/25/18 04:26 MCV 97 fl (79-97) 04/25/18 04:26 MCH 32 pg (28-32) 04/25/18 04:26 MCHC 33 % (30-34) 04/25/18 04:26 RDW 15.0 % (13.2-15.2) 04/25/18 04:26 Plt Count 188 K/mm3 (140-440) 04/25/18 04:26 Lymph % (Auto) 10.5 % (13.4-35.0) L 04/25/18 04:26 [place] % (Auto) 4.5 % (0.0-7.3) 04/25/18 04:26 Eos % (Auto) 1.2 % (0.0-4.3) 04/25/18 04:26 Baso % (Auto) 0.6 % (0.0-1.8) 04/25/18 04:26 Lymph # 1.1 K/mm3 (1.2-5.4) L 04/25/18 04:26 [place] # 0.5 K/mm3 (0.0-0.8) 04/25/18 04:26 Eos # 0.1 K/mm3 (0.0-0.4) 04/25/18 04:26 Baso # 0.1 K/mm3 (0.0-0.1) 04/25/18 04:26 Seg Neutrophils % 83.2 % (40.0-70.0) H 04/25/18 04:26 Seg Neutrophils # 8.5 K/mm3 (1.8-7.7) H 04/25/18 04:26 PT 14.3 Sec. (12.2-14.9) 04/13/18 13:41 INR 1.07 (0.87-1.13) 04/13/18 13:41 APTT 28.9 Sec. (24.2-36.6) 04/13/18 13:41 Thrombin Time 17.3 Sec. (15.1-19.6) 04/13/18 13:41 POC ABG pH 7.308 (7.35-7.45) L 04/17/18 20:40 POC ABG pCO2 31.3 (35-45) L 04/17/18 20:40 POC ABG pO2 61 (80-105) L 04/17/18 20:40 POC ABG HCO3 15.7 04/17/18 20:40 POC ABG Total CO2 17 04/17/18 20:40 POC ABG O2 Sat 89 04/17/18 20:40 POC ABG Base Excess -11 04/17/18 20:40 FiO2 30 % 04/17/18 20:40 Sodium 139 mmol/L (137-145) 04/25/18 04:26 Potassium 3.6 mmol/L (3.6-5.0) 04/25/18 04:26 Chloride 97.7 mmol/L (98-107) L 04/25/18 04:26 Carbon Dioxide 23 mmol/L (22-30) 04/25/18 04:26 Anion Gap 22 mmol/L 04/25/18 04:26 BUN 47 mg/dL (7-17) H 04/25/18 04:26 Creatinine 3.6 mg/dL (0.7-1.2) H 04/25/18 04:26 Estimated GFR 14 ml/min 04/25/18 04:26 BUN/Creatinine Ratio 13 % 04/25/18 04:26 Glucose 153 mg/dL (65-100) H 04/25/18 04:26 POC Glucose 248 (70-105) H 04/26/18 05:46 Lactic Acid 1.10 mmol/L (0.7-2.0) 04/13/18 16:23 Calcium 7.9 mg/dL (8.4-10.2) L 04/25/18 04:26 Phosphorus 3.10 mg/dL (2.5-4.5) 04/22/18 10:20 Magnesium 2.00 mg/dL (1.7-2.3) 04/22/18 10:20 Total Bilirubin 0.60 mg/dL (0.1-1.2) 04/14/18 08:01 Direct Bilirubin 0.2 mg/dL (0-0.2) 04/13/18 13:59 Indirect Bilirubin 0.3 mg/dL 04/13/18 13:59 AST 14 units/L (5-40) 04/14/18 08:01 ALT 7 units/L (7-56) 04/14/18 08:01 Alkaline Phosphatase 106 units/L (35-129) 04/14/18 08:01 Ammonia 47.0 umol/L (25-60) 04/16/18 11:17 Total Creatine Kinase 92 units/L (30-135) 04/13/18 13:59 CK-MB (CK-2) 3.7 ng/mL (0.0-4.0) 04/13/18 13:59 CK-MB (CK-2) Rel Index 4.0 (0-4) 04/13/18 13:59 Troponin T 0.010 ng/mL (0.00-0.029) 04/13/18 13:59 NT-Pro-B Natriuret Pep 95118 pg/mL (0-450) H 04/13/18 13:59 Serum Total Protein 5.6 g/dL (6.1-8.1) L 04/15/18 03:17 Total Protein 6.0 g/dL (6.3-8.2) L 04/14/18 08:01 Albumin 2.4 g/dL (3.8-4.8) L 04/15/18 03:17 Albumin/Globulin Ratio 0.8 % 04/14/18 08:01 Kgtab-5-Fkdupvgcj 0.4 g/dL (0.2-0.3) H 04/15/18 03:17 Uhhpk-8-Vwjrbhjju 0.9 g/dL (0.5-0.9) 04/15/18 03:17 Beta Globulins 0.4 g/dL (0.2-0.5) 04/15/18 03:17 Gamma Globulins 1.2 g/dL (0.8-1.7) 04/15/18 03:17 Abnorm Protein Band 1 see below 04/15/18 03:17 PEP Interpretation see below H 04/15/18 03:17 Lipase 44 units/L (13-60) 04/13/18 13:59 Urine Color Diane (Yellow) 04/13/18 14:26 Urine Turbidity Cloudy (Clear) 04/13/18 14:26 Urine pH 5.0 (5.0-7.0) 04/13/18 14:26 Ur Specific [place] 1.017 (1.003-1.030) 04/13/18 14:26 Urine Protein >500 mg/dL (Negative) 04/13/18 14:26 Urine Glucose (UA) >=500 mg/dL (Negative) 04/13/18 14:26 Urine Ketones Neg mg/dL (Negative) 04/13/18 14:26 Urine Blood Neg (Negative) 04/13/18 14:26 Urine Nitrite Neg (Negative) 04/13/18 14:26 Urine Bilirubin Neg (Negative) 04/13/18 14:26 Urine Urobilinogen < 2.0 mg/dL (<2.0) 04/13/18 14:26 Ur Leukocyte Esterase Neg (Negative) 04/13/18 14:26 Urine WBC (Auto) 22.0 /HPF (0.0-6.0) H 04/13/18 14:26 Urine RBC (Auto) 17.0 /HPF (0.0-6.0) 04/13/18 14:26 U Epithel Cells (Auto) 3.0 /HPF (0-13.0) 04/13/18 14:26 Urine Bacteria (Auto) 4+ /HPF (Negative) 04/13/18 14:26 Urine Mucus Few /HPF 04/13/18 14:26 Urine Yeast (Budding) 3+ /HPF 04/13/18 14:26 Urine Eosinophils 7% (None Seen) 04/14/18 11:23 Urine Creatinine 85.5 mg/dL (0.1-20.0) H 04/14/18 11:23 Protein/Creatinin Ratio 1.78 04/14/18 11:23 Urine Sodium 82 mmol/L 04/14/18 11:23 Fraction Sodium Excret 2.3 04/14/18 11:23 Urine Total Protein 152 mg/dL (5-11.8) H 04/14/18 11:23 Urine Opiates Screen Presumptive negative 04/13/18 14:26 Urine Methadone Screen Presumptive negative 04/13/18 14:26 Ur Barbiturates Screen Presumptive negative 04/13/18 14:26 Levetiracetam 37.6 mcg/mL 04/13/18 19:19 Ur Phencyclidine Scrn Presumptive negative 04/13/18 14:26 Ur Amphetamines Screen Presumptive negative 04/13/18 14:26 U Benzodiazepines Scrn Presumptive negative 04/13/18 14:26 Urine Cocaine Screen Presumptive negative 04/13/18 14:26 U Marijuana (THC) Screen Presumptive negative 04/13/18 14:26 Drugs of Abuse Note Disclamer 04/13/18 14:26 Proteinase 3 (PR3) Ab <1.0 AI (<1.0) 04/14/18 11:56 Myeloperoxidase Ab <1.0 AI (<1.0) 04/14/18 11:56 Double Strand DNA Ab <1 IU/mL (<=4) 04/14/18 11:56 Complement C3 155 mg/dL (83-193) 04/14/18 11:56 Complement C4 28 mg/dL (15-57) 04/14/18 11:56 Hepatitis A IgM Ab Non-reactive (NonReactive) 04/14/18 11:56 Hep Bs Antigen Non-reactive (Negative) 04/14/18 11:56 Hep B Core IgM Ab Non-reactive (NonReactive) 04/14/18 11:56 Hepatitis C Antibody Non-reactive (NonReactive) 04/14/18 11:56 Nutrition/Malnutrition Assess - Dietary Evaluation Nutrition/Malnutrition Findings: Nutrition Notes Start: 04/14/18 09:47 Freq: Status: Active Protocol: Document 04/25/18 14:07 RM (Rec: 04/25/18 14:23 [email or web address]) Nutrition Notes Initial or Follow up Brief Note Subjective/Other Information Pt asleep at time of visit. Nutrition Intervention Follow-Up By: 04/26/18 Additional Comments Follow for diet advancement, PO intakes
--- NOTE | 2018-04-26 13:28 | Progress Note ---
Assessment and Plan 42 y/o female with acute respiratory failure, secondary to post-ictal state from seizure. 1. Wean FiO2 as tolerated 2. HD per renal 3. BP control 4. Will see as needed over the weekend Subjective Date of service: 04/26/18 Principal diagnosis: Acute respiratory failure, secondary to seizure episode. Chronic kidney di Interval history: Currently in HD, stable. Breathing is improving. Down to 2 liters NC with good sats. Objective Vital Signs - 12hr 04/26/18 04/26/18 04/26/18 04:47 07:47 11:00 Temperature 97.7 F 98.0 F 98.0 F Pulse Rate 94 H 86 96 H Respiratory 20 20 18 Rate Blood Pressure 142/88 134/85 140/92 O2 Sat by Pulse 99 94 Oximetry 04/26/18 04/26/18 04/26/18 11:15 11:30 11:45 Temperature Pulse Rate 102 H 91 H 105 H Respiratory Rate Blood Pressure 142/80 127/73 125/85 O2 Sat by Pulse Oximetry 04/26/18 04/26/18 04/26/18 12:00 12:15 12:30 Temperature Pulse Rate 98 H 100 H 96 H Respiratory Rate Blood Pressure 139/77 132/75 130/75 O2 Sat by Pulse Oximetry 04/26/18 12:45 Temperature Pulse Rate 100 H Respiratory Rate Blood Pressure 134/74 O2 Sat by Pulse Oximetry Constitutional: no acute distress, other (on vent 30% ac 450 p6) ENT: oropharynx moist, other (orally intubated and sedated) Neck: no JVD Effort: normal Ascultation: Bilateral: clear Percussion: Bilateral: not dull Cardiovascular: regular rate and rhythm Gastrointestinal: normoactive bowel sounds, soft, non-tender Extremities: no edema, pink and warm, pulses normal Neurologic: unable to assess, other (RASS -1) CBC and BMP: 04/25/18 04:26 04/25/18 04:26 ABG, PT/INR, D-dimer: ABG POC ABG pH 7.308 (7.35-7.45) L 04/17/18 20:40 POC ABG pCO2 31.3 (35-45) L 04/17/18 20:40 POC ABG pO2 61 (80-105) L 04/17/18 20:40 POC ABG HCO3 15.7 04/17/18 20:40 POC ABG Total CO2 17 04/17/18 20:40 POC ABG O2 Sat 89 04/17/18 20:40 PT/INR, D-dimer PT 14.3 Sec. (12.2-14.9) 04/13/18 13:41 INR 1.07 (0.87-1.13) 04/13/18 13:41 Abnormal lab findings: Abnormal Labs 04/13/18 04/13/18 04/13/18 13:41 13:59 13:59 WBC RBC Hgb Hct MCV 103 H RDW 16.8 H Plt Count Lymph % (Auto) Lymph # Seg Neutrophils % 73.1 H Seg Neutrophils # POC ABG pH POC ABG pCO2 POC ABG pO2 Sodium 136 L Potassium Chloride Carbon Dioxide 13 L BUN 30 H Creatinine 4.0 H Glucose 210 H POC Glucose Lactic Acid 3.10 H* Calcium 8.1 L Phosphorus Alkaline Phosphatase 130 H Ammonia NT-Pro-B Natriuret Pep 35706 H Serum Total Protein Total Protein Albumin 2.9 L Lqied-4-Jearklbxd PEP Interpretation Urine WBC (Auto) Urine Creatinine Urine Total Protein 04/13/18 04/13/18 04/13/18 13:59 14:07 14:26 WBC RBC Hgb Hct MCV RDW Plt Count Lymph % (Auto) Lymph # Seg Neutrophils % Seg Neutrophils # POC ABG pH 7.262 L POC ABG pCO2 32.8 L POC ABG pO2 Sodium Potassium Chloride Carbon Dioxide BUN Creatinine Glucose POC Glucose Lactic Acid Calcium Phosphorus Alkaline Phosphatase Ammonia 65.0 H NT-Pro-B Natriuret Pep Serum Total Protein Total Protein Albumin Yckft-7-Ninofpdtx PEP Interpretation Urine WBC (Auto) 22.0 H Urine Creatinine Urine Total Protein 04/13/18 04/14/18 04/14/18 14:30 05:06 08:01 WBC RBC Hgb Hct MCV 98 H RDW 15.9 H Plt Count Lymph % (Auto) 9.3 L Lymph # 0.7 L Seg Neutrophils % 83.8 H Seg Neutrophils # POC ABG pH POC ABG pCO2 31.8 L POC ABG pO2 127 H Sodium Potassium Chloride Carbon Dioxide BUN Creatinine Glucose POC Glucose 181 H Lactic Acid Calcium Phosphorus Alkaline Phosphatase Ammonia NT-Pro-B Natriuret Pep Serum Total Protein Total Protein Albumin Cbwlj-8-Cuqwepgrf PEP Interpretation Urine WBC (Auto) Urine Creatinine Urine Total Protein 04/14/18 04/14/18 04/14/18 08:01 11:23 11:23 WBC RBC Hgb Hct MCV RDW Plt Count Lymph % (Auto) Lymph # Seg Neutrophils % Seg Neutrophils # POC ABG pH POC ABG pCO2 POC ABG pO2 Sodium Potassium Chloride Carbon Dioxide 18 L BUN 30 H Creatinine 4.1 H 3.9 H Glucose POC Glucose Lactic Acid Calcium 8.1 L Phosphorus 4.90 H Alkaline Phosphatase Ammonia NT-Pro-B Natriuret Pep Serum Total Protein Total Protein 6.0 L Albumin 2.6 L Niknm-4-Hfaklkqal PEP Interpretation Urine WBC (Auto) Urine Creatinine 85.5 H Urine Total Protein 152 H 04/14/18 04/14/18 04/15/18 19:04 23:37 03:17 WBC RBC Hgb Hct MCV RDW Plt Count Lymph % (Auto) Lymph # Seg Neutrophils % Seg Neutrophils # POC ABG pH POC ABG pCO2 POC ABG pO2 Sodium Potassium Chloride Carbon Dioxide BUN Creatinine Glucose POC Glucose 69 L 65 L Lactic Acid Calcium Phosphorus Alkaline Phosphatase Ammonia NT-Pro-B Natriuret Pep Serum Total Protein 5.6 L Total Protein Albumin 2.4 L Gvufn-2-Ecotxmnqr 0.4 H PEP Interpretation see below H Urine WBC (Auto) Urine Creatinine Urine Total Protein 04/15/18 04/15/18 04/15/18 03:17 03:17 05:27 WBC 11.3 H RBC Hgb Hct MCV RDW 15.7 H Plt Count Lymph % (Auto) Lymph # Seg Neutrophils % Seg Neutrophils # POC ABG pH POC ABG pCO2 POC ABG pO2 Sodium Potassium Chloride Carbon Dioxide 18 L BUN 33 H Creatinine 4.1 H Glucose 63 L POC Glucose 66 L Lactic Acid Calcium 8.1 L Phosphorus Alkaline Phosphatase Ammonia NT-Pro-B Natriuret Pep Serum Total Protein Total Protein Albumin Tuoip-6-Mehvoeema PEP Interpretation Urine WBC (Auto) Urine Creatinine Urine Total Protein 04/15/18 04/15/18 04/15/18 05:29 08:50 09:32 WBC RBC Hgb Hct MCV RDW Plt Count Lymph % (Auto) Lymph # Seg Neutrophils % Seg Neutrophils # POC ABG pH POC ABG pCO2 29.8 L POC ABG pO2 Sodium Potassium Chloride Carbon Dioxide BUN Creatinine Glucose POC Glucose 64 L 114 H Lactic Acid Calcium Phosphorus Alkaline Phosphatase Ammonia NT-Pro-B Natriuret Pep Serum Total Protein Total Protein Albumin Dxysw-2-Elyrpzjdy PEP Interpretation Urine WBC (Auto) Urine Creatinine Urine Total Protein 04/15/18 04/16/18 04/16/18 11:38 03:51 03:51 WBC RBC Hgb Hct MCV 98 H RDW 15.5 H Plt Count Lymph % (Auto) Lymph # Seg Neutrophils % Seg Neutrophils # POC ABG pH POC ABG pCO2 POC ABG pO2 Sodium Potassium Chloride Carbon Dioxide 19 L BUN 39 H Creatinine 4.2 H Glucose POC Glucose 69 L Lactic Acid Calcium 8.1 L Phosphorus Alkaline Phosphatase Ammonia NT-Pro-B Natriuret Pep Serum Total Protein Total Protein Albumin Radug-6-Uvszdrlgt PEP Interpretation Urine WBC (Auto) Urine Creatinine Urine Total Protein 04/17/18 04/17/18 04/17/18 04:33 06:10 09:45 WBC RBC Hgb Hct MCV RDW Plt Count Lymph % (Auto) Lymph # Seg Neutrophils % Seg Neutrophils # POC ABG pH POC ABG pCO2 28.0 L POC ABG pO2 106 H Sodium Potassium Chloride Carbon Dioxide 17 L BUN 47 H Creatinine 4.4 H Glucose 143 H 127 H POC Glucose Lactic Acid Calcium 8.3 L Phosphorus Alkaline Phosphatase Ammonia NT-Pro-B Natriuret Pep Serum Total Protein Total Protein Albumin Ldvtd-3-Vsakipaqe PEP Interpretation Urine WBC (Auto) Urine Creatinine Urine Total Protein 04/17/18 04/17/18 04/17/18 17:16 20:40 23:56 WBC RBC Hgb Hct MCV RDW Plt Count Lymph % (Auto) Lymph # Seg Neutrophils % Seg Neutrophils # POC ABG pH 7.308 L POC ABG pCO2 31.3 L POC ABG pO2 61 L Sodium Potassium Chloride Carbon Dioxide BUN Creatinine Glucose POC Glucose 128 H 45 L Lactic Acid Calcium Phosphorus Alkaline Phosphatase Ammonia NT-Pro-B Natriuret Pep Serum Total Protein Total Protein Albumin Esyvq-8-Gvedvluzg PEP Interpretation Urine WBC (Auto) Urine Creatinine Urine Total Protein 04/18/18 04/18/18 04/19/18 00:06 04:30 04:40 WBC RBC Hgb Hct MCV RDW Plt Count Lymph % (Auto) Lymph # Seg Neutrophils % Seg Neutrophils # POC ABG pH POC ABG pCO2 POC ABG pO2 Sodium Potassium 3.5 L Chloride Carbon Dioxide 17 L 19 L BUN 51 H 56 H Creatinine 4.3 H 4.2 H Glucose 63 L POC Glucose 47 L Lactic Acid Calcium 8.0 L Phosphorus Alkaline Phosphatase Ammonia NT-Pro-B Natriuret Pep Serum Total Protein Total Protein Albumin Wzioo-4-Espednfln PEP Interpretation Urine WBC (Auto) Urine Creatinine Urine Total Protein 04/19/18 04/20/18 04/20/18 12:30 04:39 11:35 WBC RBC Hgb Hct MCV RDW Plt Count Lymph % (Auto) Lymph # Seg Neutrophils % Seg Neutrophils # POC ABG pH POC ABG pCO2 POC ABG pO2 Sodium Potassium 3.5 L Chloride Carbon Dioxide 18 L BUN 63 H Creatinine 4.8 H Glucose 101 H POC Glucose 61 L 114 H Lactic Acid Calcium 7.8 L Phosphorus Alkaline Phosphatase Ammonia NT-Pro-B Natriuret Pep Serum Total Protein Total Protein Albumin Fbgjn-1-Dctbonnmf PEP Interpretation Urine WBC (Auto) Urine Creatinine Urine Total Protein 04/20/18 04/21/18 04/21/18 23:32 03:18 05:41 WBC RBC Hgb Hct MCV RDW Plt Count Lymph % (Auto) Lymph # Seg Neutrophils % Seg Neutrophils # POC ABG pH POC ABG pCO2 POC ABG pO2 Sodium Potassium 3.2 L Chloride Carbon Dioxide BUN 40 H Creatinine 2.9 H Glucose 145 H POC Glucose 125 H 159 H Lactic Acid Calcium Phosphorus Alkaline Phosphatase Ammonia NT-Pro-B Natriuret Pep Serum Total Protein Total Protein Albumin Eslvg-6-Ranurxiul PEP Interpretation Urine WBC (Auto) Urine Creatinine Urine Total Protein 04/21/18 04/21/18 04/21/18 08:32 15:07 16:50 WBC RBC Hgb Hct MCV RDW Plt Count Lymph % (Auto) Lymph # Seg Neutrophils % Seg Neutrophils # POC ABG pH POC ABG pCO2 POC ABG pO2 Sodium Potassium Chloride Carbon Dioxide BUN Creatinine Glucose POC Glucose 128 H 128 H 122 H Lactic Acid Calcium Phosphorus Alkaline Phosphatase Ammonia NT-Pro-B Natriuret Pep Serum Total Protein Total Protein Albumin Qzsvm-0-Noydzgbif PEP Interpretation Urine WBC (Auto) Urine Creatinine Urine Total Protein 04/22/18 04/22/18 04/22/18 00:36 03:44 05:20 WBC RBC Hgb Hct MCV RDW Plt Count Lymph % (Auto) Lymph # Seg Neutrophils % Seg Neutrophils # POC ABG pH POC ABG pCO2 POC ABG pO2 Sodium Potassium 3.2 L Chloride Carbon Dioxide BUN 53 H Creatinine 3.3 H Glucose 192 H POC Glucose 153 H 190 H Lactic Acid Calcium 7.6 L Phosphorus Alkaline Phosphatase Ammonia NT-Pro-B Natriuret Pep Serum Total Protein Total Protein Albumin Gyljr-7-Ucxaqasog PEP Interpretation Urine WBC (Auto) Urine Creatinine Urine Total Protein 04/22/18 04/22/18 04/22/18 07:59 10:20 12:13 WBC RBC 2.95 L Hgb 9.4 L Hct 28.6 L MCV RDW Plt Count 129 L Lymph % (Auto) 5.7 L Lymph # 0.6 L Seg Neutrophils % 88.7 H Seg Neutrophils # 9.1 H POC ABG pH POC ABG pCO2 POC ABG pO2 Sodium Potassium Chloride Carbon Dioxide BUN Creatinine Glucose POC Glucose 193 H 193 H Lactic Acid Calcium Phosphorus Alkaline Phosphatase Ammonia NT-Pro-B Natriuret Pep Serum Total Protein Total Protein Albumin Xmluu-7-Pqclbxnrd PEP Interpretation Urine WBC (Auto) Urine Creatinine Urine Total Protein 04/22/18 04/23/18 04/23/18 17:42 00:24 04:40 WBC RBC Hgb Hct MCV RDW Plt Count Lymph % (Auto) Lymph # Seg Neutrophils % Seg Neutrophils # POC ABG pH POC ABG pCO2 POC ABG pO2 Sodium Potassium 3.4 L Chloride Carbon Dioxide BUN 33 H Creatinine 2.4 H Glucose 118 H POC Glucose 133 H 141 H Lactic Acid Calcium 8.1 L Phosphorus Alkaline Phosphatase Ammonia NT-Pro-B Natriuret Pep Serum Total Protein Total Protein Albumin Gwbeb-1-Myfilnswd PEP Interpretation Urine WBC (Auto) Urine Creatinine Urine Total Protein 04/23/18 04/23/18 04/23/18 05:49 08:44 10:08 WBC RBC Hgb Hct MCV RDW Plt Count Lymph % (Auto) Lymph # Seg Neutrophils % Seg Neutrophils # POC ABG pH POC ABG pCO2 POC ABG pO2 Sodium Potassium Chloride Carbon Dioxide BUN Creatinine Glucose POC Glucose 112 H 119 H 139 H Lactic Acid Calcium Phosphorus Alkaline Phosphatase Ammonia NT-Pro-B Natriuret Pep Serum Total Protein Total Protein Albumin Qjnta-0-Xrakifcpt PEP Interpretation Urine WBC (Auto) Urine Creatinine Urine Total Protein 04/23/18 04/24/18 04/24/18 21:15 03:55 05:37 WBC RBC Hgb Hct MCV RDW Plt Count Lymph % (Auto) Lymph # Seg Neutrophils % Seg Neutrophils # POC ABG pH POC ABG pCO2 POC ABG pO2 Sodium Potassium Chloride Carbon Dioxide BUN 41 H Creatinine 3.2 H Glucose 117 H POC Glucose 130 H 114 H Lactic Acid Calcium 8.0 L Phosphorus Alkaline Phosphatase Ammonia NT-Pro-B Natriuret Pep Serum Total Protein Total Protein Albumin Awjgl-7-Pxotopibl PEP Interpretation Urine WBC (Auto) Urine Creatinine Urine Total Protein 04/24/18 04/24/18 04/24/18 14:30 14:38 14:38 WBC RBC 2.72 L Hgb 8.6 L Hct 26.2 L MCV RDW Plt Count Lymph % (Auto) 10.7 L Lymph # 0.9 L Seg Neutrophils % 83.7 H Seg Neutrophils # POC ABG pH POC ABG pCO2 POC ABG pO2 Sodium Potassium Chloride Carbon Dioxide BUN Creatinine Glucose 205 H POC Glucose < 40 L Lactic Acid Calcium Phosphorus Alkaline Phosphatase Ammonia NT-Pro-B Natriuret Pep Serum Total Protein Total Protein Albumin Vkyfp-8-Wuplwsxjl PEP Interpretation Urine WBC (Auto) Urine Creatinine Urine Total Protein 04/24/18 04/25/18 04/25/18 23:35 04:26 04:26 WBC RBC 2.68 L Hgb 8.5 L Hct 26.1 L MCV RDW Plt Count Lymph % (Auto) 10.5 L Lymph # 1.1 L Seg Neutrophils % 83.2 H Seg Neutrophils # 8.5 H POC ABG pH POC ABG pCO2 POC ABG pO2 Sodium Potassium Chloride 97.7 L Carbon Dioxide BUN 47 H Creatinine 3.6 H Glucose 153 H POC Glucose 166 H Lactic Acid Calcium 7.9 L Phosphorus Alkaline Phosphatase Ammonia NT-Pro-B Natriuret Pep Serum Total Protein Total Protein Albumin Pknnu-3-Vwugrytwl PEP Interpretation Urine WBC (Auto) Urine Creatinine Urine Total Protein 04/25/18 04/25/18 04/25/18 05:37 11:56 16:54 WBC RBC Hgb Hct MCV RDW Plt Count Lymph % (Auto) Lymph # Seg Neutrophils % Seg Neutrophils # POC ABG pH POC ABG pCO2 POC ABG pO2 Sodium Potassium Chloride Carbon Dioxide BUN Creatinine Glucose POC Glucose 171 H 165 H 159 H Lactic Acid Calcium Phosphorus Alkaline Phosphatase Ammonia NT-Pro-B Natriuret Pep Serum Total Protein Total Protein Albumin Vcgwx-3-Pismuuzcm PEP Interpretation Urine WBC (Auto) Urine Creatinine Urine Total Protein 04/26/18 04/26/18 01:04 05:46 WBC RBC Hgb Hct MCV RDW Plt Count Lymph % (Auto) Lymph # Seg Neutrophils % Seg Neutrophils # POC ABG pH POC ABG pCO2 POC ABG pO2 Sodium Potassium Chloride Carbon Dioxide BUN Creatinine Glucose POC Glucose 253 H 248 H Lactic Acid Calcium Phosphorus Alkaline Phosphatase Ammonia NT-Pro-B Natriuret Pep Serum Total Protein Total Protein Albumin Kfjuq-6-Ndmycbovp PEP Interpretation Urine WBC (Auto) Urine Creatinine Urine Total Protein
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
[2018-04-26 15:54] LABS: Calcium 8.2 mg/dL (8.4-10.2)
[2018-04-26] MEDS ORDERED: NACL 0.9 (PRIMING MACHINE ONLY DIALYSIS) MC ONE (18:01)
--- NOTE | 2018-04-26 18:20 | Progress Note ---
Subjective Principal diagnosis: Acute respiratory failure, secondary to seizure episode. Chronic kidney di Interval history: Patient was seen today for follow-up of multiple renal related issues, around 915 in morning Creatinine continues to worsen pending dialysis catheter brother at bedside Appetite somewhat better Physical examination: Gen.: No acute distress HEENT: Neck: Supple no JVD Chest: bilateral basilar crackles Heart: Regular rate and rhythm S1-S2 heard no S3-S4 Abdomen: Soft nontender no voluntary guarding rigidity rebound Extremity: 2+ peripheral edema Psychiatric: No evidence of agitation and aggression noted Dermatology: No petechial rashes Labs and x-rays: Reviewed from today Assessment and plan Acute on chronic renal failure patient did require renal replacement therapy during ICU and was able to extubated do well renal function has been worsening she will need to initiate renal replacement therapy for volume as well as solute control this has been discussed with her as well as her brother at the bedside History of underlying chronic kidney disease stage IV Patient had pulled out her Vas-Cath and will need permacath for now Hypokalemia: Continue to monitor and follow Hypertension currently stable Tachycardia currently stable Anemia: Monitor and follow erythropoietin periodically Hypocalcemia better Anemia in chronic kidney disease will give him erythropoietin subcutaneous 20, 0001 Hypokalemia appears to be better current potassium 3.6, Bone mineral disorder phosphorus is 3.1 stable Anemia in chronic renal failure needs to be monitored periodically Will give him erythropoietin Multiple comorbidities underlying including CVA, diabetes, seizure Has history of stage IV chronic kidney disease underlying History of coronary artery disease with PCI likely patient does have underlying renovascular disease Respiratory failure currently extubated stable We'll continue to follow and make recommendation for renal standpoint Objective - Vital Signs Vital signs: Vital Signs - 12hr 04/26/18 04/26/18 04/26/18 07:47 07:55 08:05 Temperature 98.0 F Pulse Rate 86 Pulse Rate [ 89 92 H Anterior Bilateral Throughout] Pulse Rate [ Apical] Pulse Rate [ From Monitor] Respiratory 20 Rate Respiratory 20 20 Rate [Anterior Bilateral Throughout] Blood Pressure 134/85 O2 Sat by Pulse 94 99 Oximetry 04/26/18 04/26/18 04/26/18 10:00 11:00 11:15 Temperature 98.0 F Pulse Rate 96 H 102 H Pulse Rate [ Anterior Bilateral Throughout] Pulse Rate [ 100 H Apical] Pulse Rate [ 92 H From Monitor] Respiratory 20 18 Rate Respiratory Rate [Anterior Bilateral Throughout] Blood Pressure 140/92 142/80 O2 Sat by Pulse 100 Oximetry 04/26/18 04/26/18 04/26/18 11:30 11:45 12:00 Temperature Pulse Rate 91 H 105 H 98 H Pulse Rate [ Anterior Bilateral Throughout] Pulse Rate [ Apical] Pulse Rate [ From Monitor] Respiratory Rate Respiratory Rate [Anterior Bilateral Throughout] Blood Pressure 127/73 125/85 139/77 O2 Sat by Pulse Oximetry 04/26/18 04/26/18 04/26/18 12:15 12:30 12:45 Temperature Pulse Rate 100 H 96 H 100 H Pulse Rate [ Anterior Bilateral Throughout] Pulse Rate [ Apical] Pulse Rate [ From Monitor] Respiratory Rate Respiratory Rate [Anterior Bilateral Throughout] Blood Pressure 132/75 130/75 134/74 O2 Sat by Pulse Oximetry 04/26/18 04/26/18 04/26/18 13:00 13:15 13:30 Temperature Pulse Rate 99 H 100 H 102 H Pulse Rate [ Anterior Bilateral Throughout] Pulse Rate [ Apical] Pulse Rate [ From Monitor] Respiratory Rate Respiratory Rate [Anterior Bilateral Throughout] Blood Pressure 118/71 125/78 120/66 O2 Sat by Pulse Oximetry 04/26/18 04/26/18 04/26/18 13:45 14:00 14:15 Temperature Pulse Rate 100 H 99 H 105 H Pulse Rate [ Anterior Bilateral Throughout] Pulse Rate [ Apical] Pulse Rate [ From Monitor] Respiratory Rate Respiratory Rate [Anterior Bilateral Throughout] Blood Pressure 129/70 133/73 128/68 O2 Sat by Pulse Oximetry 04/26/18 04/26/18 04/26/18 14:30 14:40 16:31 Temperature 98.0 F 98.3 F Pulse Rate 100 H 102 H 106 H Pulse Rate [ Anterior Bilateral Throughout] Pulse Rate [ Apical] Pulse Rate [ From Monitor] Respiratory 18 20 Rate Respiratory Rate [Anterior Bilateral Throughout] Blood Pressure 127/79 117/70 138/85 O2 Sat by Pulse 100 Oximetry 04/26/18 04/26/18 17:15 17:25 Temperature Pulse Rate Pulse Rate [ 104 H 108 H Anterior Bilateral Throughout] Pulse Rate [ Apical] Pulse Rate [ From Monitor] Respiratory Rate Respiratory 20 20 Rate [Anterior Bilateral Throughout] Blood Pressure O2 Sat by Pulse Oximetry - Lab 04/25/18 04:26 04/26/18 15:25 Most recent lab results Calcium 8.2 mg/dL (8.4-10.2) L 04/26/18 15:25 Phosphorus 3.10 mg/dL (2.5-4.5) 04/22/18 10:20 Magnesium 1.70 mg/dL (1.7-2.3) 04/26/18 15:25 Urine Creatinine 85.5 mg/dL (0.1-20.0) H 04/14/18 11:23 Urine Sodium 82 mmol/L 04/14/18 11:23 Urine Total Protein 152 mg/dL (5-11.8) H 04/14/18 11:23 Medications & Allergies - Medications Allergies/Adverse Reactions: Allergies No Known Allergies Allergy (Verified 04/17/18 10:03) Home Medications: Home Medications Medication Instructions Recorded Confirmed Last Taken Type Lispro Insulin [Humalog] 15 unit SQ BID 07/17/17 04/23/18 02/16/18 History Aspirin EC [Aspirin Enteric Coated 81 mg PO QDAY #30 tablet 07/22/17 04/23/18 02/17/18 Rx TAB] 81mg Insulin NPH, Human [NovoLIN N] 15 unit SUB-Q BID 12/02/17 12/02/17 12/01/17 History Lantus 45 units SUB-Q QHS 12/02/17 12/02/17 11/30/17 History Labetalol [Normodyne TAB] 200 mg PO BID #60 tablet 12/04/17 Unknown Rx Sulfamethoxazole/Trimethoprim 1 each PO BID #14 tablet 12/04/17 Unknown Rx [Bactrim DS TAB] amLODIPine [Norvasc] 10 mg PO QDAY #30 tablet 12/04/17 04/23/18 Unknown Rx Apixaban [Eliquis] 2.5 mg PO BID 60 Days tablet 02/22/18 04/23/18 Unknown Rx AtorvaSTATin [Lipitor] 20 mg PO QHS #30 tablet 02/22/18 04/23/18 Unknown Rx Furosemide [Lasix TAB] 80 mg PO 0600,1800 #30 tablet 02/22/18 Unknown Rx Insulin Glargine,Hum.rec.anlog 20 unit SQ QHS #30 insuln.pen 02/22/18 04/23/18 Unknown Rx [Lantus Solostar] Lisinopril [Zestril TAB] 20 mg PO QDAY #30 tablet 02/22/18 04/23/18 Unknown Rx Lispro Insulin [Humalog] 0 unit SUB-Q ACHS units 02/22/18 04/23/18 Unknown Rx Metoprolol Xl [Metoprolol 25 mg PO QDAY #30 tablet 02/22/18 Unknown Rx SUCCINATE ER TAB] Potassium Chloride [K-Dur] 20 meq PO Q12HR #60 tablet 02/22/18 04/23/18 Unknown Rx levETIRAcetam [Keppra TAB] 500 mg PO BID #90 tablet 02/22/18 04/23/18 Unknown Rx oxyCODONE /ACETAMINOPHEN [Percocet 1 tab PO Q6H PRN #30 tablet 02/22/18 04/23/18 Unknown Rx 5/325 mg] hydrALAZINE [Apresoline TAB] 100 mg PO TID 04/23/18 04/23/18 Unknown History Active Medications: Generic Name Dose Route Start Last Admin Trade Name Freq PRN Reason Stop Dose Admin Albuterol 2.5 mg 04/13/18 14:57 Proventil IH Q3H PRN Shortness Of Breath Albuterol/Ipratropium 1 ampul 04/23/18 20:00 04/26/18 17:16 Duoneb *Not For Prn Use* IH 1 ampul TIDRT CECILE Administration Apixaban 2.5 mg 04/14/18 18:00 04/25/18 22:37 Eliquis FEEDTUBE 2.5 mg Q12HR CECILE Administration Protocol Atorvastatin Calcium 20 mg 04/23/18 22:00 04/25/18 22:37 Lipitor PO 20 mg QHS CECILE Administration Benzocaine/Menthol 1 each 04/23/18 08:51 Cepacol X Strength MM Q1HR PRN Sore Throat Dextrose 50 ml 04/14/18 19:05 04/18/18 00:15 D50w (25gm) Syringe IV 50 ml PRN PRN Administration Hypoglycemia Famotidine 20 mg 04/15/18 10:00 04/26/18 09:40 Pepcid PO 20 mg DAILY CECILE Administration Hydralazine HCl 10 mg 04/14/18 16:15 04/19/18 18:45 Apresoline IV 10 mg Q4HR PRN Administration SBP >150 or DBP >90 Hydrophilic Ointment 1 applic 04/13/18 13:43 Vaseline Lip Therapy TP Q2HR PRN Dry Lips Sodium Chloride 100 mls @ 999 mls/hr 04/26/18 08:52 Nacl 0.9% IV MIRI PRN Hypotension Insulin Human Regular 0 units 04/26/18 07:30 04/26/18 08:55 Humulin R SUB-Q 2 units ACHS CECILE Administration Protocol Levetiracetam 500 mg 04/22/18 22:00 04/26/18 09:39 Keppra PO 500 mg BID CECILE Administration Metoprolol Tartrate 25 mg 04/22/18 10:00 04/25/18 22:37 Lopressor PO 25 mg BID CECILE Administration Multi-Ingred Cream/Lotion/Oil/Oint 1 applic 04/13/18 13:43 Artificial Tears Ophth Oint OU Q4HR PRN Dry Eye(s) Prednisone 40 mg 04/25/18 10:00 04/26/18 09:39 Deltasone PO 40 mg QDAY CECILE Administration Sodium Chloride 10 ml 04/13/18 22:00 04/26/18 09:45 Sodium Chloride Flush Syringe 10 Ml IV 10 ml BID CECILE Administration Sodium Chloride 10 ml 04/13/18 14:57 04/17/18 05:42 Sodium Chloride Flush Syringe 10 Ml IV 10 ml PRN PRN Administration LINE FLUSH
[2018-04-27] MEDS: DUONEB *Not for PRN Use IH SCH ×3 (08:21→20:03)
[2018-04-27] MEDS: HumuLIN R SUB-Q SCH ×4 (08:30→22:46)
[2018-04-27] MEDS: KEPPRA PO SCH ×2 (09:16→21:24)
[2018-04-27] MEDS: PEPCID PO SCH (09:16)
[2018-04-27] MEDS: ELIQUIS FEEDTUBE SCH ×2 (09:16→21:24)
[2018-04-27] MEDS: DELTASONE PO SCH (09:16)
[2018-04-27] MEDS: SODIUM CHLORIDE FLUSH SYRINGE 10 ML IV SCH ×2 (09:17→21:26)
[2018-04-27] MEDS: LOPRESSOR PO SCH ×2 (09:17→21:24)
--- NOTE | 2018-04-27 14:47 | Progress Note ---
Assessment and Plan Impression * Acute kidney injury on stage IV chronic kidney disease * Acute hypoxic respiratory failure secondary to seizure * Aspiration PNA * Chronic systolic heart failure * Atrial fibrillation * Anemia Plan: * Continue hemodialysis MWF * UF as tolerated * Abx per ID * Avoid potential nephrotoxins * Dose medications for renal function * Epogen TIW prn Subjective Date of service: 04/27/18 Principal diagnosis: Acute respiratory failure, secondary to seizure episode. Chronic kidney di Interval history: No acute events overnight. Patient only nods head yes or no with questions. Keeps eyes closed during visit. Objective - Vital Signs Vital signs: Vital Signs - 12hr 04/27/18 04/27/18 04/27/18 03:57 04:00 07:48 Temperature 98.2 F 98.0 F Pulse Rate 93 H 92 H 87 Pulse Rate [ Anterior Bilateral Throughout] Pulse Rate [ From Monitor] Respiratory 20 18 Rate Respiratory Rate [Anterior Bilateral Throughout] Blood Pressure 128/81 125/77 O2 Sat by Pulse 93 95 Oximetry 04/27/18 04/27/18 04/27/18 08:10 09:38 09:41 Temperature Pulse Rate 87 Pulse Rate [ 87 Anterior Bilateral Throughout] Pulse Rate [ 87 From Monitor] Respiratory Rate Respiratory 18 Rate [Anterior Bilateral Throughout] Blood Pressure O2 Sat by Pulse Oximetry 04/27/18 04/27/18 10:00 11:29 Temperature 98.6 F Pulse Rate 91 H Pulse Rate [ Anterior Bilateral Throughout] Pulse Rate [ From Monitor] Respiratory 20 Rate Respiratory Rate [Anterior Bilateral Throughout] Blood Pressure 135/80 O2 Sat by Pulse 95 98 Oximetry - General Appearance General appearance: well-developed, well-nourished EENT: ATNC Respiratory: Present: Clear to Ascultation Cardiology: regular Gastrointestinal: no tenderness, no distended, obese Integumentary: warm and dry - Lab 04/25/18 04:26 04/26/18 15:25 Most recent lab results Calcium 8.2 mg/dL (8.4-10.2) L 04/26/18 15:25 Phosphorus 3.10 mg/dL (2.5-4.5) 04/22/18 10:20 Magnesium 1.70 mg/dL (1.7-2.3) 04/26/18 15:25 Urine Creatinine 85.5 mg/dL (0.1-20.0) H 04/14/18 11:23 Urine Sodium 82 mmol/L 04/14/18 11:23 Urine Total Protein 152 mg/dL (5-11.8) H 04/14/18 11:23 Medications & Allergies - Medications Allergies/Adverse Reactions: Allergies No Known Allergies Allergy (Verified 04/17/18 10:03) Home Medications: Home Medications Medication Instructions Recorded Confirmed Last Taken Type Lispro Insulin [Humalog] 15 unit SQ BID 07/17/17 04/23/18 02/16/18 History Aspirin EC [Aspirin Enteric Coated 81 mg PO QDAY #30 tablet 07/22/17 04/23/18 02/17/18 Rx TAB] 81mg Insulin NPH, Human [NovoLIN N] 15 unit SUB-Q BID 12/02/17 12/02/17 12/01/17 History Lantus 45 units SUB-Q QHS 12/02/17 12/02/17 11/30/17 History Labetalol [Normodyne TAB] 200 mg PO BID #60 tablet 12/04/17 Unknown Rx Sulfamethoxazole/Trimethoprim 1 each PO BID #14 tablet 12/04/17 Unknown Rx [Bactrim DS TAB] amLODIPine [Norvasc] 10 mg PO QDAY #30 tablet 12/04/17 04/23/18 Unknown Rx Apixaban [Eliquis] 2.5 mg PO BID 60 Days tablet 02/22/18 04/23/18 Unknown Rx AtorvaSTATin [Lipitor] 20 mg PO QHS #30 tablet 02/22/18 04/23/18 Unknown Rx Furosemide [Lasix TAB] 80 mg PO 0600,1800 #30 tablet 02/22/18 Unknown Rx Insulin Glargine,Hum.rec.anlog 20 unit SQ QHS #30 insuln.pen 02/22/18 04/23/18 Unknown Rx [Lantus Solostar] Lisinopril [Zestril TAB] 20 mg PO QDAY #30 tablet 02/22/18 04/23/18 Unknown Rx Lispro Insulin [Humalog] 0 unit SUB-Q ACHS units 02/22/18 04/23/18 Unknown Rx Metoprolol Xl [Metoprolol 25 mg PO QDAY #30 tablet 02/22/18 Unknown Rx SUCCINATE ER TAB] Potassium Chloride [K-Dur] 20 meq PO Q12HR #60 tablet 02/22/18 04/23/18 Unknown Rx levETIRAcetam [Keppra TAB] 500 mg PO BID #90 tablet 02/22/18 04/23/18 Unknown Rx oxyCODONE /ACETAMINOPHEN [Percocet 1 tab PO Q6H PRN #30 tablet 02/22/18 04/23/18 Unknown Rx 5/325 mg] hydrALAZINE [Apresoline TAB] 100 mg PO TID 04/23/18 04/23/18 Unknown History Active Medications: Generic Name Dose Route Start Last Admin Trade Name Freq PRN Reason Stop Dose Admin Albuterol 2.5 mg 04/13/18 14:57 Proventil IH Q3H PRN Shortness Of Breath Albuterol/Ipratropium 1 ampul 04/23/18 20:00 04/27/18 13:15 Duoneb *Not For Prn Use* IH 1 ampul TIDRT CECILE Administration Apixaban 2.5 mg 04/14/18 18:00 04/27/18 09:16 Eliquis FEEDTUBE 2.5 mg Q12HR CECILE Administration Protocol Atorvastatin Calcium 20 mg 04/23/18 22:00 04/26/18 21:53 Lipitor PO 20 mg QHS CECILE Administration Benzocaine/Menthol 1 each 04/23/18 08:51 Cepacol X Strength MM Q1HR PRN Sore Throat Dextrose 50 ml 04/14/18 19:05 04/18/18 00:15 D50w (25gm) Syringe IV 50 ml PRN PRN Administration Hypoglycemia Famotidine 20 mg 04/15/18 10:00 04/27/18 09:16 Pepcid PO 20 mg DAILY CECILE Administration Hydralazine HCl 10 mg 04/14/18 16:15 04/19/18 18:45 Apresoline IV 10 mg Q4HR PRN Administration SBP >150 or DBP >90 Hydrophilic Ointment 1 applic 04/13/18 13:43 Vaseline Lip Therapy TP Q2HR PRN Dry Lips Sodium Chloride 100 mls @ 999 mls/hr 04/26/18 08:52 Nacl 0.9% IV MIRI PRN Hypotension Insulin Human Regular 0 units 04/26/18 07:30 04/27/18 12:45 Humulin R SUB-Q 2 units ACHS CECILE Administration Protocol Levetiracetam 500 mg 04/22/18 22:00 04/27/18 09:16 Keppra PO 500 mg BID CECILE Administration Metoprolol Tartrate 25 mg 04/22/18 10:00 04/27/18 09:17 Lopressor PO 25 mg BID CECILE Administration Multi-Ingred Cream/Lotion/Oil/Oint 1 applic 04/13/18 13:43 Artificial Tears Ophth Oint OU Q4HR PRN Dry Eye(s) Prednisone 40 mg 04/25/18 10:00 04/27/18 09:16 Deltasone PO 40 mg QDAY CECILE Administration Sodium Chloride 10 ml 04/13/18 22:00 04/27/18 09:17 Sodium Chloride Flush Syringe 10 Ml IV 10 ml BID CECILE Administration Sodium Chloride 10 ml 04/13/18 14:57 04/17/18 05:42 Sodium Chloride Flush Syringe 10 Ml IV 10 ml PRN PRN Administration LINE FLUSH
--- NOTE | 2018-04-27 15:50 | Progress Note ---
Assessment and Plan - Patient Problems (1) ARF (acute renal failure) with tubular necrosis Current Visit: Yes Status: Acute Plan to address problem: She will receive hemodialysis 2 now be urine of 19 and creatinine of 1.9. Stable stage IV chronic kidney disease. Cath for hemodialysis has been placed. Await outpatient appointment for hemodialysis. Otherwise hemodynamically stable. (2) Acute and chronic respiratory failure ([id number]) Current Visit: Yes Status: Acute (3) CHF (congestive heart failure) Current Visit: Yes Status: Acute Qualifiers: Heart failure type: systolic Heart failure chronicity: acute on chronic Qualified Code(s): I50.23 - Acute on chronic systolic (congestive) heart failure Plan to address problem: Patient with ejection fraction of 20%. Currently on beta natividad Lopressor. Not a candidate at this time for addition of TEOFILO inhibitor. Patient also does not appear to need diuretics at this time. 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 We'll add long-acting Lantus versus Levemir short dose. 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 (7) Acute on chronic renal failure Current Visit: No Status: Acute Qualifiers: Chronic kidney disease stage: stage 4 (severe) (8) CVA (cerebral infarction) Current Visit: No Status: Acute Qualifiers: Cerebral infarction mechanism: thrombosis Laterality of affected vessel: right (9) Diabetes mellitus type 1, uncontrolled Current Visit: No Status: Acute Plan to address problem: Uncontrolled as previously mentioned addition of Lantus. History Interval history: Patient resting comfortably. Hospital course uncomplicated over p.m. Hospitalist Physical - Constitutional Vitals: Temp Pulse Resp BP Pulse Ox 98.6 F 91 H 20 135/80 98 04/27/18 11:29 04/27/18 11:29 04/27/18 11:29 04/27/18 11:29 04/27/18 11:29 General appearance: Present: no acute distress - EENT Eyes: Present: PERRL ENT: hearing decreased, poor dentition - Neck Neck: Present: supple, normal ROM - Respiratory Respiratory: bilateral: CTA - Cardiovascular Rhythm: regular - Extremities Extremities: No edema Extremity abnormal: other (extensive wounds over her lower extremities.) Peripheral Pulses: abnormal - Abdominal General gastrointestinal: soft, non-distended, normal bowel sounds - Integumentary Integumentary: Present: erythema. Absent: jaundice, rash - Psychiatric Psychiatric: other (confused) Results - Labs CBC & Chem 7: 04/25/18 04:26 04/26/18 15:25 Labs: Laboratory Last Values WBC 10.3 K/mm3 (4.5-11.0) 04/25/18 04:26 RBC 2.68 M/mm3 (3.65-5.03) L 04/25/18 04:26 Hgb 8.5 gm/dl (10.1-14.3) L 04/25/18 04:26 Hct 26.1 % (30.3-42.9) L 04/25/18 04:26 MCV 97 fl (79-97) 04/25/18 04:26 MCH 32 pg (28-32) 04/25/18 04:26 MCHC 33 % (30-34) 04/25/18 04:26 RDW 15.0 % (13.2-15.2) 04/25/18 04:26 Plt Count 188 K/mm3 (140-440) 04/25/18 04:26 Lymph % (Auto) 10.5 % (13.4-35.0) L 04/25/18 04:26 [place] % (Auto) 4.5 % (0.0-7.3) 04/25/18 04:26 Eos % (Auto) 1.2 % (0.0-4.3) 04/25/18 04:26 Baso % (Auto) 0.6 % (0.0-1.8) 04/25/18 04:26 Lymph # 1.1 K/mm3 (1.2-5.4) L 04/25/18 04:26 [place] # 0.5 K/mm3 (0.0-0.8) 04/25/18 04:26 Eos # 0.1 K/mm3 (0.0-0.4) 04/25/18 04:26 Baso # 0.1 K/mm3 (0.0-0.1) 04/25/18 04:26 Seg Neutrophils % 83.2 % (40.0-70.0) H 04/25/18 04:26 Seg Neutrophils # 8.5 K/mm3 (1.8-7.7) H 04/25/18 04:26 PT 14.3 Sec. (12.2-14.9) 04/13/18 13:41 INR 1.07 (0.87-1.13) 04/13/18 13:41 APTT 28.9 Sec. (24.2-36.6) 04/13/18 13:41 Thrombin Time 17.3 Sec. (15.1-19.6) 04/13/18 13:41 POC ABG pH 7.308 (7.35-7.45) L 04/17/18 20:40 POC ABG pCO2 31.3 (35-45) L 04/17/18 20:40 POC ABG pO2 61 (80-105) L 04/17/18 20:40 POC ABG HCO3 15.7 04/17/18 20:40 POC ABG Total CO2 17 04/17/18 20:40 POC ABG O2 Sat 89 04/17/18 20:40 POC ABG Base Excess -11 04/17/18 20:40 FiO2 30 % 04/17/18 20:40 Sodium 138 mmol/L (137-145) 04/26/18 15:25 Potassium 4.7 mmol/L (3.6-5.0) D 04/26/18 15:25 Chloride 99.6 mmol/L (98-107) 04/26/18 15:25 Carbon Dioxide 27 mmol/L (22-30) 04/26/18 15:25 Anion Gap 16 mmol/L 04/26/18 15:25 BUN 19 mg/dL (7-17) H 04/26/18 15:25 Creatinine 1.9 mg/dL (0.7-1.2) H 04/26/18 15:25 Estimated GFR 29 ml/min 04/26/18 15:25 BUN/Creatinine Ratio 10 % 04/26/18 15:25 Glucose 213 mg/dL (65-100) H 04/26/18 15:25 POC Glucose 235 (70-105) H 04/27/18 11:35 Lactic Acid 1.10 mmol/L (0.7-2.0) 04/13/18 16:23 Calcium 8.2 mg/dL (8.4-10.2) L 04/26/18 15:25 Phosphorus 3.10 mg/dL (2.5-4.5) 04/22/18 10:20 Magnesium 1.70 mg/dL (1.7-2.3) 04/26/18 15:25 Total Bilirubin 0.60 mg/dL (0.1-1.2) 04/14/18 08:01 Direct Bilirubin 0.2 mg/dL (0-0.2) 04/13/18 13:59 Indirect Bilirubin 0.3 mg/dL 04/13/18 13:59 AST 14 units/L (5-40) 04/14/18 08:01 ALT 7 units/L (7-56) 04/14/18 08:01 Alkaline Phosphatase 106 units/L (35-129) 04/14/18 08:01 Ammonia 47.0 umol/L (25-60) 04/16/18 11:17 Total Creatine Kinase 92 units/L (30-135) 04/13/18 13:59 CK-MB (CK-2) 3.7 ng/mL (0.0-4.0) 04/13/18 13:59 CK-MB (CK-2) Rel Index 4.0 (0-4) 04/13/18 13:59 Troponin T 0.010 ng/mL (0.00-0.029) 04/13/18 13:59 NT-Pro-B Natriuret Pep 14266 pg/mL (0-450) H 04/13/18 13:59 Serum Total Protein 5.6 g/dL (6.1-8.1) L 04/15/18 03:17 Total Protein 6.0 g/dL (6.3-8.2) L 04/14/18 08:01 Albumin 2.4 g/dL (3.8-4.8) L 04/15/18 03:17 Albumin/Globulin Ratio 0.8 % 04/14/18 08:01 Homlu-0-Yoikhnagn 0.4 g/dL (0.2-0.3) H 04/15/18 03:17 Kriia-0-Ogpurkvvj 0.9 g/dL (0.5-0.9) 04/15/18 03:17 Beta Globulins 0.4 g/dL (0.2-0.5) 04/15/18 03:17 Gamma Globulins 1.2 g/dL (0.8-1.7) 04/15/18 03:17 Abnorm Protein Band 1 see below 04/15/18 03:17 PEP Interpretation see below H 04/15/18 03:17 Lipase 44 units/L (13-60) 04/13/18 13:59 Urine Color Diane (Yellow) 04/13/18 14:26 Urine Turbidity Cloudy (Clear) 04/13/18 14:26 Urine pH 5.0 (5.0-7.0) 04/13/18 14:26 Ur Specific [place] 1.017 (1.003-1.030) 04/13/18 14:26 Urine Protein >500 mg/dL (Negative) 04/13/18 14:26 Urine Glucose (UA) >=500 mg/dL (Negative) 04/13/18 14:26 Urine Ketones Neg mg/dL (Negative) 04/13/18 14:26 Urine Blood Neg (Negative) 04/13/18 14:26 Urine Nitrite Neg (Negative) 04/13/18 14:26 Urine Bilirubin Neg (Negative) 04/13/18 14:26 Urine Urobilinogen < 2.0 mg/dL (<2.0) 04/13/18 14:26 Ur Leukocyte Esterase Neg (Negative) 04/13/18 14:26 Urine WBC (Auto) 22.0 /HPF (0.0-6.0) H 04/13/18 14:26 Urine RBC (Auto) 17.0 /HPF (0.0-6.0) 04/13/18 14:26 U Epithel Cells (Auto) 3.0 /HPF (0-13.0) 04/13/18 14:26 Urine Bacteria (Auto) 4+ /HPF (Negative) 04/13/18 14:26 Urine Mucus Few /HPF 04/13/18 14:26 Urine Yeast (Budding) 3+ /HPF 04/13/18 14:26 Urine Eosinophils 7% (None Seen) 04/14/18 11:23 Urine Creatinine 85.5 mg/dL (0.1-20.0) H 04/14/18 11:23 Protein/Creatinin Ratio 1.78 04/14/18 11:23 Urine Sodium 82 mmol/L 04/14/18 11:23 Fraction Sodium Excret 2.3 04/14/18 11:23 Urine Total Protein 152 mg/dL (5-11.8) H 04/14/18 11:23 Urine Opiates Screen Presumptive negative 04/13/18 14:26 Urine Methadone Screen Presumptive negative 04/13/18 14:26 Ur Barbiturates Screen Presumptive negative 04/13/18 14:26 Levetiracetam 37.6 mcg/mL 04/13/18 19:19 Ur Phencyclidine Scrn Presumptive negative 04/13/18 14:26 Ur Amphetamines Screen Presumptive negative 04/13/18 14:26 U Benzodiazepines Scrn Presumptive negative 04/13/18 14:26 Urine Cocaine Screen Presumptive negative 04/13/18 14:26 U Marijuana (THC) Screen Presumptive negative 04/13/18 14:26 Drugs of Abuse Note Disclamer 04/13/18 14:26 Proteinase 3 (PR3) Ab <1.0 AI (<1.0) 04/14/18 11:56 Myeloperoxidase Ab <1.0 AI (<1.0) 04/14/18 11:56 Double Strand DNA Ab <1 IU/mL (<=4) 04/14/18 11:56 Complement C3 155 mg/dL (83-193) 04/14/18 11:56 Complement C4 28 mg/dL (15-57) 04/14/18 11:56 Hepatitis A IgM Ab Non-reactive (NonReactive) 04/14/18 11:56 Hep Bs Antigen Non-reactive (Negative) 04/14/18 11:56 Hep B Core IgM Ab Non-reactive (NonReactive) 04/14/18 11:56 Hepatitis C Antibody Non-reactive (NonReactive) 04/14/18 11:56 Nutrition/Malnutrition Assess - Dietary Evaluation Nutrition/Malnutrition Findings: Nutrition Notes Start: 04/14/18 09:47 Freq: Status: Active Protocol: Document 04/26/18 17:44 RM (Rec: 04/26/18 17:53 RM [id number]) Nutrition Notes Initial or Follow up Reassessment Current Diagnosis CKD(stage I-IV) COPD Diabetes Hypertension Heart Failure Respiratory Failure Stroke Other Pertinent Diagnosis Hx of seizures, Wounds on R and L LE, fungal rash on groin and ischial fold Current Diet Renal Labs/Tests Reviewed Pertinent Medications Prednisone Height 5 ft 8 in Weight 79.5 kg [place] Body Weight (lbs) 140.0 BMI 26.6 Weight change and time frame recorded wt loss likely d/t human error Subjective/Other Information Pt not in room at time of visit. Per pt nurse pt eats most of her meals. Percent of energy/protein needs met: 112%/91% Burn Absent Trauma Absent #2 Nutrition Diagnosis Increased nutrient needs ( specify in comment below) Diagnosis Progress(for reassessment Continues documentation) #1 Nutrition Diagnosis Inadequate oral intake As Evidenced by Signs and Symptoms pt nurse statement that pt eats most of her meals Diagnosis Progress(for reassessment Improved documentation) Is patient on ventilator? No Is Patient Ambulatory and/or Out of Bed No REE-([place]-confined to bed) 1801.380 Kcal/Kg value to use for calculation 18 Approximate Energy Requirements Using 1431 kcal/Kg Calculation Used for Recommendations Kcal/kg Additional Notes Protein Needs: 64-80g (0.8-1g/ kg) Fluid needs are 1ml/kcal or per MD Nutrition Intervention Change Diet Order: Continue current Goal #1 Continue to meet at least 75% of calorie and protein needs via PO intake Anticipated Discharge Needs: Renal Follow-Up By: 04/29/18 Additional Comments Follow for confirmation of PO intakes
[2018-04-27] MEDS ORDERED: LANTUS SUB-Q SCH (22:00)
--- NOTE | 2018-04-28 06:48 | Progress Note ---
Assessment and Plan Assessment and plan: - Patient Problems (1) ARF (acute renal failure) with tubular necrosis Current Visit: Yes Status: Acute Plan to address problem: She will receive hemodialysis 2 now be urine of 19 and creatinine of 1.9. Stable stage IV chronic kidney disease. Cath for hemodialysis has been placed. Await outpatient appointment for hemodialysis. Otherwise hemodynamically stable. (2) Acute and chronic respiratory failure ([id number]) Current Visit: Yes Status: Acute S/P EXTUBATION (3) CHF (congestive heart failure) Current Visit: Yes Status: Acute Qualifiers: Heart failure type: systolic Heart failure chronicity: acute on chronic Qualified Code(s): I50.23 - Acute on chronic systolic (congestive) heart failure Plan to address problem: Patient with ejection fraction of 20%. Currently on beta natividad Lopressor. Not a candidate at this time for addition of TEOFILO inhibitor. Patient also does not appear to need diuretics at this time. (4) Diabetes type 2, Uncontrolled Current Visit: Yes Status: Acute Qualifiers: Diabetes mellitus prison insulin use: with roasterman use Diabetes mellitus complication status: with kidney complications Diabetes mellitus complication detail: with chronic kidney disease Chronic kidney disease stage: stage 4 (severe) Qualified Code(s): E11.22 - Type 2 diabetes mellitus with diabetic chronic kidney disease; N18.4 - Chronic kidney disease, stage 4 (severe); Z79.4 - senior living (current) use of insulin Plan to address problem: Present patient consistently suboptimal Accu-Cheks. We'll add long-acting Lantus -Adjust to home dose of 20units. Accu-Cheks [id number] and 3 O2 ?if uncontrolled due to steroids. 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 (7) Acute on chronic renal failure Current Visit: No Status: Acute Qualifiers: Chronic kidney disease stage: stage 4 (severe) (8) CVA (cerebral infarction) Current Visit: No Status: Acute Qualifiers: Cerebral infarction mechanism: thrombosis Laterality of affected vessel: right DVT/GI prophy Awaiting HD set up for discharge, History Interval history: Patient seen and examined today, resting comfortably, no new complaints. Hospitalist Physical - Physical exam Narrative exam: General appearance: Present: no acute distress - EENT Eyes: Present: PERRL ENT: hearing decreased, poor dentition - Neck Neck: Present: supple, normal ROM - Respiratory Respiratory: bilateral: CTA - Cardiovascular Rhythm: regular - Extremities Extremities: No edema Extremity abnormal: other (extensive wounds over her lower extremities.) Peripheral Pulses: abnormal - Abdominal General gastrointestinal: soft, non-distended, normal bowel sounds - Integumentary Integumentary: Present: erythema. Absent: jaundice, rash - Psychiatric Psychiatric: other alert and oriented x2 - Constitutional Vitals: Temp Pulse Resp BP Pulse Ox 97.3 F L 94 H 20 109/71 91 04/28/18 04:29 04/28/18 04:29 04/28/18 04:29 04/28/18 04:29 04/28/18 04:29 General appearance: Present: no acute distress Results - Labs CBC & Chem 7: 04/29/18 04:45 04/29/18 04:45 Labs: Laboratory Last Values WBC 10.3 K/mm3 (4.5-11.0) 04/25/18 04:26 RBC 2.68 M/mm3 (3.65-5.03) L 04/25/18 04:26 Hgb 8.5 gm/dl (10.1-14.3) L 04/25/18 04:26 Hct 26.1 % (30.3-42.9) L 04/25/18 04:26 MCV 97 fl (79-97) 04/25/18 04:26 MCH 32 pg (28-32) 04/25/18 04:26 MCHC 33 % (30-34) 04/25/18 04:26 RDW 15.0 % (13.2-15.2) 04/25/18 04:26 Plt Count 188 K/mm3 (140-440) 04/25/18 04:26 Lymph % (Auto) 10.5 % (13.4-35.0) L 04/25/18 04:26 [place] % (Auto) 4.5 % (0.0-7.3) 04/25/18 04:26 Eos % (Auto) 1.2 % (0.0-4.3) 04/25/18 04:26 Baso % (Auto) 0.6 % (0.0-1.8) 04/25/18 04:26 Lymph # 1.1 K/mm3 (1.2-5.4) L 04/25/18 04:26 [place] # 0.5 K/mm3 (0.0-0.8) 04/25/18 04:26 Eos # 0.1 K/mm3 (0.0-0.4) 04/25/18 04:26 Baso # 0.1 K/mm3 (0.0-0.1) 04/25/18 04:26 Seg Neutrophils % 83.2 % (40.0-70.0) H 04/25/18 04:26 Seg Neutrophils # 8.5 K/mm3 (1.8-7.7) H 04/25/18 04:26 PT 14.3 Sec. (12.2-14.9) 04/13/18 13:41 INR 1.07 (0.87-1.13) 04/13/18 13:41 APTT 28.9 Sec. (24.2-36.6) 04/13/18 13:41 Thrombin Time 17.3 Sec. (15.1-19.6) 04/13/18 13:41 POC ABG pH 7.308 (7.35-7.45) L 04/17/18 20:40 POC ABG pCO2 31.3 (35-45) L 04/17/18 20:40 POC ABG pO2 61 (80-105) L 04/17/18 20:40 POC ABG HCO3 15.7 04/17/18 20:40 POC ABG Total CO2 17 04/17/18 20:40 POC ABG O2 Sat 89 04/17/18 20:40 POC ABG Base Excess -11 04/17/18 20:40 FiO2 30 % 04/17/18 20:40 Sodium 138 mmol/L (137-145) 04/26/18 15:25 Potassium 4.7 mmol/L (3.6-5.0) D 04/26/18 15:25 Chloride 99.6 mmol/L (98-107) 04/26/18 15:25 Carbon Dioxide 27 mmol/L (22-30) 04/26/18 15:25 Anion Gap 16 mmol/L 04/26/18 15:25 BUN 19 mg/dL (7-17) H 04/26/18 15:25 Creatinine 1.9 mg/dL (0.7-1.2) H 04/26/18 15:25 Estimated GFR 29 ml/min 04/26/18 15:25 BUN/Creatinine Ratio 10 % 04/26/18 15:25 Glucose 213 mg/dL (65-100) H 04/26/18 15:25 POC Glucose 233 (70-105) H 04/27/18 21:42 Lactic Acid 1.10 mmol/L (0.7-2.0) 04/13/18 16:23 Calcium 8.2 mg/dL (8.4-10.2) L 04/26/18 15:25 Phosphorus 3.10 mg/dL (2.5-4.5) 04/22/18 10:20 Magnesium 1.70 mg/dL (1.7-2.3) 04/26/18 15:25 Total Bilirubin 0.60 mg/dL (0.1-1.2) 04/14/18 08:01 Direct Bilirubin 0.2 mg/dL (0-0.2) 04/13/18 13:59 Indirect Bilirubin 0.3 mg/dL 04/13/18 13:59 AST 14 units/L (5-40) 04/14/18 08:01 ALT 7 units/L (7-56) 04/14/18 08:01 Alkaline Phosphatase 106 units/L (35-129) 04/14/18 08:01 Ammonia 47.0 umol/L (25-60) 04/16/18 11:17 Total Creatine Kinase 92 units/L (30-135) 04/13/18 13:59 CK-MB (CK-2) 3.7 ng/mL (0.0-4.0) 04/13/18 13:59 CK-MB (CK-2) Rel Index 4.0 (0-4) 04/13/18 13:59 Troponin T 0.010 ng/mL (0.00-0.029) 04/13/18 13:59 NT-Pro-B Natriuret Pep 25667 pg/mL (0-450) H 04/13/18 13:59 Serum Total Protein 5.6 g/dL (6.1-8.1) L 04/15/18 03:17 Total Protein 6.0 g/dL (6.3-8.2) L 04/14/18 08:01 Albumin 2.4 g/dL (3.8-4.8) L 04/15/18 03:17 Albumin/Globulin Ratio 0.8 % 04/14/18 08:01 Pqabe-0-Fqnrydfbh 0.4 g/dL (0.2-0.3) H 04/15/18 03:17 Lzgmx-8-Lwuvoqwhv 0.9 g/dL (0.5-0.9) 04/15/18 03:17 Beta Globulins 0.4 g/dL (0.2-0.5) 04/15/18 03:17 Gamma Globulins 1.2 g/dL (0.8-1.7) 04/15/18 03:17 Abnorm Protein Band 1 see below 04/15/18 03:17 PEP Interpretation see below H 04/15/18 03:17 Lipase 44 units/L (13-60) 04/13/18 13:59 Urine Color Diane (Yellow) 04/13/18 14:26 Urine Turbidity Cloudy (Clear) 04/13/18 14:26 Urine pH 5.0 (5.0-7.0) 04/13/18 14:26 Ur Specific [place] 1.017 (1.003-1.030) 04/13/18 14:26 Urine Protein >500 mg/dL (Negative) 04/13/18 14:26 Urine Glucose (UA) >=500 mg/dL (Negative) 04/13/18 14:26 Urine Ketones Neg mg/dL (Negative) 04/13/18 14:26 Urine Blood Neg (Negative) 04/13/18 14:26 Urine Nitrite Neg (Negative) 04/13/18 14:26 Urine Bilirubin Neg (Negative) 04/13/18 14:26 Urine Urobilinogen < 2.0 mg/dL (<2.0) 04/13/18 14:26 Ur Leukocyte Esterase Neg (Negative) 04/13/18 14:26 Urine WBC (Auto) 22.0 /HPF (0.0-6.0) H 04/13/18 14:26 Urine RBC (Auto) 17.0 /HPF (0.0-6.0) 04/13/18 14:26 U Epithel Cells (Auto) 3.0 /HPF (0-13.0) 04/13/18 14:26 Urine Bacteria (Auto) 4+ /HPF (Negative) 04/13/18 14:26 Urine Mucus Few /HPF 04/13/18 14:26 Urine Yeast (Budding) 3+ /HPF 04/13/18 14:26 Urine Eosinophils 7% (None Seen) 04/14/18 11:23 Urine Creatinine 85.5 mg/dL (0.1-20.0) H 04/14/18 11:23 Protein/Creatinin Ratio 1.78 04/14/18 11:23 Urine Sodium 82 mmol/L 04/14/18 11:23 Fraction Sodium Excret 2.3 04/14/18 11:23 Urine Total Protein 152 mg/dL (5-11.8) H 04/14/18 11:23 Urine Opiates Screen Presumptive negative 04/13/18 14:26 Urine Methadone Screen Presumptive negative 04/13/18 14:26 Ur Barbiturates Screen Presumptive negative 04/13/18 14:26 Levetiracetam 37.6 mcg/mL 04/13/18 19:19 Ur Phencyclidine Scrn Presumptive negative 04/13/18 14:26 Ur Amphetamines Screen Presumptive negative 04/13/18 14:26 U Benzodiazepines Scrn Presumptive negative 04/13/18 14:26 Urine Cocaine Screen Presumptive negative 04/13/18 14:26 U Marijuana (THC) Screen Presumptive negative 04/13/18 14:26 Drugs of Abuse Note Disclamer 04/13/18 14:26 Proteinase 3 (PR3) Ab <1.0 AI (<1.0) 04/14/18 11:56 Myeloperoxidase Ab <1.0 AI (<1.0) 04/14/18 11:56 Double Strand DNA Ab <1 IU/mL (<=4) 04/14/18 11:56 Complement C3 155 mg/dL (83-193) 04/14/18 11:56 Complement C4 28 mg/dL (15-57) 04/14/18 11:56 Hepatitis A IgM Ab Non-reactive (NonReactive) 04/14/18 11:56 Hep Bs Antigen Non-reactive (Negative) 04/14/18 11:56 Hep B Core IgM Ab Non-reactive (NonReactive) 04/14/18 11:56 Hepatitis C Antibody Non-reactive (NonReactive) 04/14/18 11:56 Nutrition/Malnutrition Assess - Dietary Evaluation Nutrition/Malnutrition Findings: Nutrition Notes Start: 04/14/18 09:47 Freq: Status: Active Protocol: Document 04/26/18 17:44 RM (Rec: 04/26/18 17:53 RM [id number]) Nutrition Notes Initial or Follow up Reassessment Current Diagnosis CKD(stage I-IV) COPD Diabetes Hypertension Heart Failure Respiratory Failure Stroke Other Pertinent Diagnosis Hx of seizures, Wounds on R and L LE, fungal rash on groin and ischial fold Current Diet Renal Labs/Tests Reviewed Pertinent Medications Prednisone Height 5 ft 8 in Weight 79.5 kg [place] Body Weight (lbs) 140.0 BMI 26.6 Weight change and time frame recorded wt loss likely d/t human error Subjective/Other Information Pt not in room at time of visit. Per pt nurse pt eats most of her meals. Percent of energy/protein needs met: 112%/91% Burn Absent Trauma Absent #2 Nutrition Diagnosis Increased nutrient needs ( specify in comment below) Diagnosis Progress(for reassessment Continues documentation) #1 Nutrition Diagnosis Inadequate oral intake As Evidenced by Signs and Symptoms pt nurse statement that pt eats most of her meals Diagnosis Progress(for reassessment Improved documentation) Is patient on ventilator? No Is Patient Ambulatory and/or Out of Bed No REE-([place]-confined to bed) 1801.380 Kcal/Kg value to use for calculation 18 Approximate Energy Requirements Using 1431 kcal/Kg Calculation Used for Recommendations Kcal/kg Additional Notes Protein Needs: 64-80g (0.8-1g/ kg) Fluid needs are 1ml/kcal or per MD Nutrition Intervention Change Diet Order: Continue current Goal #1 Continue to meet at least 75% of calorie and protein needs via PO intake Anticipated Discharge Needs: Renal Follow-Up By: 04/29/18 Additional Comments Follow for confirmation of PO intakes
[2018-04-28] MEDS: DUONEB *Not for PRN Use IH SCH ×3 (07:27→20:31)
[2018-04-28] MEDS: HumuLIN R SUB-Q SCH ×4 (07:30→23:41)
[2018-04-28] MEDS: NORMODYNE PO SCH ×2 (10:42→21:00)
[2018-04-28] MEDS: KEPPRA PO SCH ×2 (10:42→20:59)
[2018-04-28] MEDS: DELTASONE PO SCH (10:42)
[2018-04-28] MEDS: ELIQUIS FEEDTUBE SCH ×2 (10:42→20:59)
[2018-04-28] MEDS: PEPCID PO SCH (10:42)
[2018-04-28] MEDS: SODIUM CHLORIDE FLUSH SYRINGE 10 ML IV SCH ×2 (10:43→21:00)
--- NOTE | 2018-04-28 12:03 | Progress Note ---
Assessment and Plan Impression * Acute kidney injury on stage IV chronic kidney disease * Acute hypoxic respiratory failure secondary to seizure * Aspiration PNA * Chronic systolic heart failure * Atrial fibrillation * Anemia Plan: * Continue hemodialysis MWF * UF as tolerated * Abx per ID * Avoid potential nephrotoxins * Dose medications for renal function * Epogen TIW prn Subjective Date of service: 04/28/18 Principal diagnosis: Acute respiratory failure, secondary to seizure episode. Chronic kidney di Interval history: No acute events overnight. Objective - Vital Signs Vital signs: Vital Signs - 12hr 04/28/18 04/28/18 04/28/18 04:29 07:27 07:53 Temperature 97.3 F L 97.8 F Pulse Rate 94 H 98 H Pulse Rate [ 92 H Anterior Bilateral Throughout] Respiratory 20 14 Rate Respiratory 18 Rate [Anterior Bilateral Throughout] Blood Pressure 109/71 123/76 O2 Sat by Pulse 91 96 96 Oximetry 04/28/18 10:42 Temperature Pulse Rate 98 H Pulse Rate [ Anterior Bilateral Throughout] Respiratory Rate Respiratory Rate [Anterior Bilateral Throughout] Blood Pressure 123/76 O2 Sat by Pulse Oximetry - General Appearance General appearance: well-developed, well-nourished EENT: ATNC Respiratory: Present: Clear to Ascultation Cardiology: regular, S1S2 Gastrointestinal: normal, no tenderness, no distended Integumentary: other (lower ext wounds) Neurologic: no focal deficit Musculoskeletal: other (+edema) Psychiatric: cooperative - Lab 04/25/18 04:26 04/26/18 15:25 Most recent lab results Calcium 8.2 mg/dL (8.4-10.2) L 04/26/18 15:25 Phosphorus 3.10 mg/dL (2.5-4.5) 04/22/18 10:20 Magnesium 1.70 mg/dL (1.7-2.3) 04/26/18 15:25 Urine Creatinine 85.5 mg/dL (0.1-20.0) H 04/14/18 11:23 Urine Sodium 82 mmol/L 04/14/18 11:23 Urine Total Protein 152 mg/dL (5-11.8) H 04/14/18 11:23 Medications & Allergies - Medications Allergies/Adverse Reactions: Allergies No Known Allergies Allergy (Verified 04/17/18 10:03) Home Medications: Home Medications Medication Instructions Recorded Confirmed Last Taken Type Lispro Insulin [Humalog] 15 unit SQ BID 07/17/17 04/23/18 02/16/18 History Aspirin EC [Aspirin Enteric Coated 81 mg PO QDAY #30 tablet 07/22/17 04/23/18 02/17/18 Rx TAB] 81mg Insulin NPH, Human [NovoLIN N] 15 unit SUB-Q BID 12/02/17 12/02/17 12/01/17 History Lantus 45 units SUB-Q QHS 12/02/17 12/02/17 11/30/17 History Labetalol [Normodyne TAB] 200 mg PO BID #60 tablet 12/04/17 Unknown Rx Sulfamethoxazole/Trimethoprim 1 each PO BID #14 tablet 12/04/17 Unknown Rx [Bactrim DS TAB] amLODIPine [Norvasc] 10 mg PO QDAY #30 tablet 12/04/17 04/23/18 Unknown Rx Apixaban [Eliquis] 2.5 mg PO BID 60 Days tablet 02/22/18 04/23/18 Unknown Rx AtorvaSTATin [Lipitor] 20 mg PO QHS #30 tablet 02/22/18 04/23/18 Unknown Rx Furosemide [Lasix TAB] 80 mg PO 0600,1800 #30 tablet 02/22/18 Unknown Rx Insulin Glargine,Hum.rec.anlog 20 unit SQ QHS #30 insuln.pen 02/22/18 04/23/18 Unknown Rx [Lantus Solostar] Lisinopril [Zestril TAB] 20 mg PO QDAY #30 tablet 02/22/18 04/23/18 Unknown Rx Lispro Insulin [Humalog] 0 unit SUB-Q ACHS units 02/22/18 04/23/18 Unknown Rx Metoprolol Xl [Metoprolol 25 mg PO QDAY #30 tablet 02/22/18 Unknown Rx SUCCINATE ER TAB] Potassium Chloride [K-Dur] 20 meq PO Q12HR #60 tablet 02/22/18 04/23/18 Unknown Rx levETIRAcetam [Keppra TAB] 500 mg PO BID #90 tablet 02/22/18 04/23/18 Unknown Rx oxyCODONE /ACETAMINOPHEN [Percocet 1 tab PO Q6H PRN #30 tablet 02/22/18 04/23/18 Unknown Rx 5/325 mg] hydrALAZINE [Apresoline TAB] 100 mg PO TID 04/23/18 04/23/18 Unknown History Active Medications: Generic Name Dose Route Start Last Admin Trade Name Freq PRN Reason Stop Dose Admin Albuterol 2.5 mg 04/13/18 14:57 Proventil IH Q3H PRN Shortness Of Breath Albuterol/Ipratropium 1 ampul 04/23/18 20:00 04/28/18 07:27 Duoneb *Not For Prn Use* IH 1 ampul TIDRT CECILE Administration Apixaban 2.5 mg 04/14/18 18:00 04/28/18 10:42 Eliquis FEEDTUBE 2.5 mg Q12HR CECILE Administration Protocol Atorvastatin Calcium 20 mg 04/23/18 22:00 04/27/18 21:24 Lipitor PO 20 mg QHS CECILE Administration Benzocaine/Menthol 1 each 04/23/18 08:51 Cepacol X Strength MM Q1HR PRN Sore Throat Dextrose 50 ml 04/14/18 19:05 04/18/18 00:15 D50w (25gm) Syringe IV 50 ml PRN PRN Administration Hypoglycemia Epoetin Kofi 10,000 unit 04/29/18 06:00 Procrit IV MIRI PRN hemodialysis Famotidine 20 mg 04/15/18 10:00 04/28/18 10:42 Pepcid PO 20 mg DAILY CECILE Administration Hydralazine HCl 10 mg 04/14/18 16:15 04/19/18 18:45 Apresoline IV 10 mg Q4HR PRN Administration SBP >150 or DBP >90 Hydrophilic Ointment 1 applic 04/13/18 13:43 Vaseline Lip Therapy TP Q2HR PRN Dry Lips Sodium Chloride 100 mls @ 999 mls/hr 04/26/18 08:52 Nacl 0.9% IV MIRI PRN Hypotension Insulin Glargine 20 units 04/28/18 22:00 Lantus SUB-Q QHS [facility] Insulin Human Regular 0 units 04/26/18 07:30 04/28/18 07:30 Humulin R SUB-Q Not Given ACHS [facility] Protocol Labetalol HCl 200 mg 04/28/18 10:00 04/28/18 10:42 Normodyne PO 200 mg BID CECILE Administration Levetiracetam 500 mg 04/22/18 22:00 04/28/18 10:42 Keppra PO 500 mg BID CECILE Administration Multi-Ingred Cream/Lotion/Oil/Oint 1 applic 04/13/18 13:43 Artificial Tears Ophth Oint OU Q4HR PRN Dry Eye(s) Prednisone 20 mg 04/28/18 10:00 04/28/18 10:42 Deltasone PO 20 mg QDAY CECILE Administration Sodium Chloride 10 ml 04/13/18 22:00 04/28/18 10:43 Sodium Chloride Flush Syringe 10 Ml IV 10 ml BID CECILE Administration Sodium Chloride 10 ml 04/13/18 14:57 04/17/18 05:42 Sodium Chloride Flush Syringe 10 Ml IV 10 ml PRN PRN Administration LINE FLUSH
[2018-04-28] MEDS: LANTUS SUB-Q SCH (21:00)
[2018-04-29 05:51] LABS: Hematocrit 25.5 % (30.3-42.9); Hemoglobin 8.3 gm/dl (10.1-14.3); Mean Corpuscular HGB Conc 33 % (30-34); Mean Corpuscular Volume 98 fl (79-97); Platelet Count 208 K/mm3 (140-440); Red Blood Count 2.59 M/mm3 (3.65-5.03); Red Cell Distribution Width 15.2 % (13.2-15.2)
[2018-04-29 06:10] LABS: Calcium 7.5 mg/dL (8.4-10.2)
[2018-04-29] MEDS: DUONEB *Not for PRN Use IH SCH ×3 (07:34→20:10)
--- NOTE | 2018-04-29 08:50 | Progress Note ---
Assessment and Plan Impression * Acute kidney injury on stage IV chronic kidney disease * Acute hypoxic respiratory failure secondary to seizure * Aspiration PNA * Chronic systolic heart failure * Atrial fibrillation * Anemia Plan: * Continue hemodialysis MWF * UF as tolerated * Abx per ID * Avoid potential nephrotoxins * Dose medications for renal function * Epogen TIW prn Subjective Date of service: 04/29/18 Principal diagnosis: Acute respiratory failure, secondary to seizure episode. Chronic kidney di Interval history: Patient has no complaints. Seen on dialysis. Objective - Vital Signs Vital signs: Vital Signs - 12hr 04/28/18 04/29/18 04/29/18 22:00 00:09 05:47 Temperature 97.7 F 97.6 F Pulse Rate 91 H 90 84 Pulse Rate [ Anterior Bilateral Throughout] Respiratory 20 20 Rate Respiratory Rate [Anterior Bilateral Throughout] Blood Pressure 129/85 97/68 O2 Sat by Pulse 98 99 Oximetry 04/29/18 04/29/18 04/29/18 07:34 07:36 07:44 Temperature Pulse Rate Pulse Rate [ 79 88 Anterior Bilateral Throughout] Respiratory Rate Respiratory 18 20 Rate [Anterior Bilateral Throughout] Blood Pressure O2 Sat by Pulse 95 Oximetry - General Appearance General appearance: well-developed, well-nourished EENT: ATNC Respiratory: Present: Clear to Ascultation Cardiology: regular, S1S2 Gastrointestinal: normal, no tenderness, no distended Musculoskeletal: other (no edema) Psychiatric: cooperative - Lab 04/29/18 04:45 04/29/18 04:45 Most recent lab results Calcium 7.5 mg/dL (8.4-10.2) L 04/29/18 04:45 Phosphorus 3.10 mg/dL (2.5-4.5) 04/22/18 10:20 Magnesium 1.70 mg/dL (1.7-2.3) 04/26/18 15:25 Urine Creatinine 85.5 mg/dL (0.1-20.0) H 04/14/18 11:23 Urine Sodium 82 mmol/L 04/14/18 11:23 Urine Total Protein 152 mg/dL (5-11.8) H 04/14/18 11:23 Medications & Allergies - Medications Allergies/Adverse Reactions: Allergies No Known Allergies Allergy (Verified 04/17/18 10:03) Home Medications: Home Medications Medication Instructions Recorded Confirmed Last Taken Type Aspirin EC [Aspirin Enteric Coated 81 mg PO QDAY #30 tablet 07/22/17 04/23/18 02/17/18 Rx TAB] 81mg Labetalol [Normodyne TAB] 200 mg PO BID #60 tablet 12/04/17 Unknown Rx amLODIPine [Norvasc] 10 mg PO QDAY #30 tablet 12/04/17 04/23/18 Unknown Rx Apixaban [Eliquis] 2.5 mg PO BID 60 Days tablet 02/22/18 04/23/18 Unknown Rx AtorvaSTATin [Lipitor] 20 mg PO QHS #30 tablet 02/22/18 04/23/18 Unknown Rx Insulin Glargine,Hum.rec.anlog 20 unit SQ QHS #30 insuln.pen 02/22/18 04/23/18 Unknown Rx [Lantus Solostar] Lispro Insulin [Humalog] 0 unit SUB-Q ACHS units 02/22/18 04/23/18 Unknown Rx levETIRAcetam [Keppra TAB] 500 mg PO BID #90 tablet 02/22/18 04/23/18 Unknown Rx hydrALAZINE [Apresoline TAB] 100 mg PO TID 04/23/18 04/23/18 Unknown History Prednisone [predniSONE 5 mg (6-Day 5 mg PO .TAPER #1 tab.ds.pk 04/29/18 Unknown Rx Pack, 21 Tabs)] Active Medications: Generic Name Dose Route Start Last Admin Trade Name Freq PRN Reason Stop Dose Admin Albuterol 2.5 mg 04/13/18 14:57 Proventil IH Q3H PRN Shortness Of Breath Albuterol/Ipratropium 1 ampul 04/23/18 20:00 04/29/18 07:34 Duoneb *Not For Prn Use* IH 1 ampul TIDRT [facility]ECILE Administration Apixaban 2.5 mg 04/14/18 18:00 04/28/18 20:59 Eliquis FEEDTUBE 2.5 mg Q12HR CECILE Administration Protocol Atorvastatin Calcium 20 mg 04/23/18 22:00 04/28/18 20:59 Lipitor PO 20 mg QHS [facility]EC[facility] Administration Benzocaine/Menthol 1 each 04/23/18 08:51 Cepacol X Strength MM Q1HR PRN Sore Throat Dextrose 50 ml 04/14/18 19:05 04/18/18 00:15 D50w (25gm) Syringe IV 50 ml PRN PRN Administration Hypoglycemia Epoetin Kofi 10,000 unit 04/29/18 06:00 Procrit IV MIRI PRN hemodialysis Famotidine 20 mg 04/15/18 10:00 04/28/18 10:42 Pepcid PO 20 mg DAILY CECILE Administration Hydralazine HCl 10 mg 04/14/18 16:15 04/19/18 18:45 Apresoline IV 10 mg Q4HR PRN Administration SBP >150 or DBP >90 Hydrophilic Ointment 1 applic 04/13/18 13:43 Vaseline Lip Therapy TP Q2HR PRN Dry Lips Sodium Chloride 100 mls @ 999 mls/hr 04/26/18 08:52 Nacl 0.9% IV MIRI PRN Hypotension Insulin Glargine 20 units 04/28/18 22:00 04/28/18 21:00 Lantus SUB-Q 20 units QHS CECILE Administration Insulin Human Regular 0 units 04/26/18 07:30 04/28/18 23:41 Humulin R SUB-Q Not Given ACHS [facility] Protocol Labetalol HCl 200 mg 04/28/18 10:00 04/28/18 21:00 Normodyne PO 200 mg BID CECILE Administration Levetiracetam 500 mg 04/22/18 22:00 04/28/18 20:59 Keppra PO 500 mg BID CECILE Administration Multi-Ingred Cream/Lotion/Oil/Oint 1 applic 04/13/18 13:43 Artificial Tears Ophth Oint OU Q4HR PRN Dry Eye(s) Prednisone 20 mg 04/28/18 10:00 04/28/18 10:42 Deltasone PO 20 mg QDAY CECILE Administration Sodium Chloride 10 ml 04/13/18 22:00 04/28/18 21:00 Sodium Chloride Flush Syringe 10 Ml IV 10 ml BID CECILE Administration Sodium Chloride 10 ml 04/13/18 14:57 04/17/18 05:42 Sodium Chloride Flush Syringe 10 Ml IV 10 ml PRN PRN Administration LINE FLUSH
[2018-04-29] MEDS ORDERED: NACL 0.9 (PRIMING MACHINE ONLY DIALYSIS) MC ONE (11:38)
[2018-04-29] MEDS: PROCRIT IV PRN (12:50)
[2018-04-29] MEDS ORDERED: DUONEB *Not for PRN Use IH ONE (14:16)
--- NOTE | 2018-04-29 14:19 | Discharge Summary ---
Providers - Providers Date of Admission: 04/13/18 14:57 Attending physician: DANYA DUNCAN MD 04/13/18 13:43 Consult to Dietitian/Nutrition [CONS] Routine Physician Instructions: Reason For Exam: Reason for Consult: Evaluate nutritional intake 04/13/18 15:53 Consult to Physician [CONS] Routine Comment: Corazon MOSCOSO notified @ 16:02- LXM Consulting Provider: MATT SAPP Physician Instructions: Reason For Exam: vent management 04/13/18 17:49 Consult to Physician [CONS] Routine Comment: Consulting Provider: KARUNA BUSTAMANTE Physician Instructions: Reason For Exam: ckd4 04/14/18 12:08 Consult to Wound/ET Nurse [CONS] Routine Reason For Exam: wound eval; duran to lower extremities 04/17/18 16:05 Consult to Physician [CONS] Routine Comment: Consulting Provider: WENDI ALLEN Physician Instructions: Reason For Exam: seizure 04/18/18 11:17 Consult to Physician [CONS] Urgent Comment: Consulting Provider: SHERIE DEY Physician Instructions: Reason For Exam: CAP/HAP 04/20/18 14:06 Consult to Physician [CONS] Routine Comment: Consulting Provider: SOL SABA Physician Instructions: Reason For Exam: need vas cath for emergency HD 04/22/18 10:48 Physical Therapy Evaluation and Treat [CONS] Routine Comment: Reason For Exam: Debility 04/22/18 16:57 Physical Therapy Evaluation and Treat [CONS] Routine Comment: Reason For Exam: ataxia 04/25/18 14:06 Consult to Physician [CONS] Routine Comment: Consulting Provider: SOL SABA Physician Instructions: Reason For Exam: permacath placement Primary care physician: RETAIL REPRESENTATIVE Hospitalization Condition: Stable Hospital course: (1) ARF (acute renal failure) with tubular necrosis Current Visit: Yes Status: Acute Plan to address problem: She will receive hemodialysis 2 now be urine of 19 and creatinine of 1.9. Stable stage IV chronic kidney disease. Cath for hemodialysis has been placed. Await outpatient appointment for hemodialysis. Otherwise hemodynamically stable. (2) Acute and chronic respiratory failure ([id number]) Current Visit: Yes Status: Acute S/P EXTUBATION (3) CHF (congestive heart failure) Current Visit: Yes Status: Acute Qualifiers: Heart failure type: systolic Heart failure chronicity: acute on chronic Qualified Code(s): I50.23 - Acute on chronic systolic (congestive) heart failure Plan to address problem: Patient with ejection fraction of 20%. Currently on beta natividad Lopressor. Not a candidate at this time for addition of TEOFILO inhibitor. Patient also does not appear to need diuretics at this time. 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 We'll add long-acting Lantus -Adjust to home dose of 20units. Accu-Cheks [id number] and 3 O2 ?if uncontrolled due to steroids. 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 (7) Acute on chronic renal failure Current Visit: No Status: Acute Qualifiers: Chronic kidney disease stage: stage 4 (severe) (8) CVA (cerebral infarction) Current Visit: No Status: Acute Qualifiers: Cerebral infarction mechanism: thrombosis Laterality of affected vessel: right DVT/GI prophy Awaiting HD set up for discharge, Disposition: [id number] HOME UNDER HOME [facility] Time spent for discharge: 35 mins Exam - Constitutional Vitals: Temp Pulse Resp BP Pulse Ox 98.0 F 86 18 124/75 96 04/29/18 13:10 04/29/18 13:10 04/29/18 13:10 04/29/18 13:10 04/29/18 08:07 Plan Activity: advance as tolerated, no driving until cleared by PCP, fall pr ecautions Diet: diabetic, renal Special Instructions: restrict fluid intake to (1200cc/day), record daily weights, record daily BP diary Follow up with: ANGELES LEVINE MD [Staff Physician] - 7 Days MARINA SANCHEZ MD [Staff Physician] - 7 Days PRIMARY CARE, [Primary Care Provider] - 3-5 Days NEMO GREEN MD [Staff Physician] - 7 Days Prescriptions: Prednisone [predniSONE 5 mg (6-Day Pack, 21 Tabs)] 5 mg PO .TAPER #1 tab.ds.pk
[2018-04-29] MEDS: PEPCID PO SCH (14:39)
[2018-04-29] MEDS: KEPPRA PO SCH ×2 (14:39→22:17)
[2018-04-29] MEDS: NORMODYNE PO SCH ×2 (14:40→22:32)
[2018-04-29] MEDS: DELTASONE PO SCH (14:40)
[2018-04-29] MEDS: ELIQUIS FEEDTUBE SCH ×2 (14:40→22:17)
[2018-04-29] MEDS: HumuLIN R SUB-Q SCH ×2 (14:40→22:18)
[2018-04-29] MEDS: SODIUM CHLORIDE FLUSH SYRINGE 10 ML IV SCH ×2 (14:41→22:16)
--- NOTE | 2018-04-29 15:40 | Progress Note ---
Assessment and Plan Assessment and plan: - Patient Problems (1) ARF (acute renal failure) with tubular necrosis Current Visit: Yes Status: Acute Plan to address problem: She will receive hemodialysis 2 now be urine of 19 and creatinine of 1.9. Stable stage IV chronic kidney disease. Cath for hemodialysis has been placed. Await outpatient appointment for hemodialysis. Otherwise hemodynamically stable. (2) Acute and chronic respiratory failure (vowoc-up-pvwefpa) Current Visit: Yes Status: Acute S/P EXTUBATION (3) CHF (congestive heart failure) Current Visit: Yes Status: Acute Qualifiers: Heart failure type: systolic Heart failure chronicity: acute on chronic Qualified Code(s): I50.23 - Acute on chronic systolic (congestive) heart failure Plan to address problem: Patient with ejection fraction of 20%. Currently on beta natividad Lopressor. Not a candidate at this time for addition of TEOFILO inhibitor. Patient also does not appear to need diuretics at this time. (4) Diabetes type 2, Uncontrolled Current Visit: Yes Status: Acute Qualifiers: Diabetes mellitus mcc insulin use: with termite treater helper use Diabetes mellitus complication status: with kidney complications Diabetes mellitus complication detail: with chronic kidney disease Chronic kidney disease stage: stage 4 (severe) Qualified Code(s): E11.22 - Type 2 diabetes mellitus with diabetic chronic kidney disease; N18.4 - Chronic kidney disease, stage 4 (severe); Z79.4 - USP (current) use of insulin Plan to address problem: Present patient consistently suboptimal Accu-Cheks. We'll add long-acting Lantus -Adjust to home dose of 20units. Accu-Cheks [id number] and 3 O2 ?if uncontrolled due to steroids. 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 (7) Acute on chronic renal failure Current Visit: No Status: Acute Qualifiers: Chronic kidney disease stage: stage 4 (severe) (8) CVA (cerebral infarction) Current Visit: No Status: Acute Qualifiers: Cerebral infarction mechanism: thrombosis Laterality of affected vessel: right DVT/GI prophy Awaiting HD set up for discharge, History Interval history: Patient seen and examined today, resting comfortably, no new complaints. Hospitalist Physical - Physical exam Narrative exam: General appearance: Present: no acute distress - EENT Eyes: Present: PERRL ENT: hearing decreased, poor dentition - Neck Neck: Present: supple, normal ROM - Respiratory Respiratory: bilateral: CTA - Cardiovascular Rhythm: regular - Extremities Extremities: No edema Extremity abnormal: other (extensive wounds over her lower extremities.) Peripheral Pulses: abnormal - Abdominal General gastrointestinal: soft, non-distended, normal bowel sounds - Integumentary Integumentary: Present: erythema. Absent: jaundice, rash - Psychiatric Psychiatric: other alert and oriented x2 - Constitutional Vitals: Temp Pulse Resp BP Pulse Ox 98.0 F 82 18 126/78 96 04/29/18 13:10 04/29/18 15:23 04/29/18 15:23 04/29/18 14:40 04/29/18 08:07 General appearance: Present: no acute distress Results - Labs CBC & Chem 7: 04/29/18 04:45 04/29/18 04:45 Labs: Laboratory Last Values WBC 7.6 K/mm3 (4.5-11.0) 04/29/18 04:45 RBC 2.59 M/mm3 (3.65-5.03) L 04/29/18 04:45 Hgb 8.3 gm/dl (10.1-14.3) L 04/29/18 04:45 Hct 25.5 % (30.3-42.9) L 04/29/18 04:45 MCV 98 fl (79-97) H 04/29/18 04:45 MCH 32 pg (28-32) 04/29/18 04:45 MCHC 33 % (30-34) 04/29/18 04:45 RDW 15.2 % (13.2-15.2) 04/29/18 04:45 Plt Count 208 K/mm3 (140-440) 04/29/18 04:45 Lymph % (Auto) 10.5 % (13.4-35.0) L 04/25/18 04:26 [place] % (Auto) 4.5 % (0.0-7.3) 04/25/18 04:26 Eos % (Auto) 1.2 % (0.0-4.3) 04/25/18 04:26 Baso % (Auto) 0.6 % (0.0-1.8) 04/25/18 04:26 Lymph # 1.1 K/mm3 (1.2-5.4) L 04/25/18 04:26 [place] # 0.5 K/mm3 (0.0-0.8) 04/25/18 04:26 Eos # 0.1 K/mm3 (0.0-0.4) 04/25/18 04:26 Baso # 0.1 K/mm3 (0.0-0.1) 04/25/18 04:26 Seg Neutrophils % 83.2 % (40.0-70.0) H 04/25/18 04:26 Seg Neutrophils # 8.5 K/mm3 (1.8-7.7) H 04/25/18 04:26 PT 14.3 Sec. (12.2-14.9) 04/13/18 13:41 INR 1.07 (0.87-1.13) 04/13/18 13:41 APTT 28.9 Sec. (24.2-36.6) 04/13/18 13:41 Thrombin Time 17.3 Sec. (15.1-19.6) 04/13/18 13:41 POC ABG pH 7.308 (7.35-7.45) L 04/17/18 20:40 POC ABG pCO2 31.3 (35-45) L 04/17/18 20:40 POC ABG pO2 61 (80-105) L 04/17/18 20:40 POC ABG HCO3 15.7 04/17/18 20:40 POC ABG Total CO2 17 04/17/18 20:40 POC ABG O2 Sat 89 04/17/18 20:40 POC ABG Base Excess -11 04/17/18 20:40 FiO2 30 % 04/17/18 20:40 Sodium 136 mmol/L (137-145) L 04/29/18 04:45 Potassium 4.3 mmol/L (3.6-5.0) 04/29/18 04:45 Chloride 96.7 mmol/L (98-107) L 04/29/18 04:45 Carbon Dioxide 24 mmol/L (22-30) 04/29/18 04:45 Anion Gap 20 mmol/L 04/29/18 04:45 BUN 50 mg/dL (7-17) H 04/29/18 04:45 Creatinine 4.5 mg/dL (0.7-1.2) H D 04/29/18 04:45 Estimated GFR 11 ml/min 04/29/18 04:45 BUN/Creatinine Ratio 11 % 04/29/18 04:45 Glucose 96 mg/dL (65-100) 04/29/18 04:45 POC Glucose 95 (70-105) 04/29/18 06:26 Lactic Acid 1.10 mmol/L (0.7-2.0) 04/13/18 16:23 Calcium 7.5 mg/dL (8.4-10.2) L 04/29/18 04:45 Phosphorus 3.10 mg/dL (2.5-4.5) 04/22/18 10:20 Magnesium 1.70 mg/dL (1.7-2.3) 04/26/18 15:25 Total Bilirubin 0.60 mg/dL (0.1-1.2) 04/14/18 08:01 Direct Bilirubin 0.2 mg/dL (0-0.2) 04/13/18 13:59 Indirect Bilirubin 0.3 mg/dL 04/13/18 13:59 AST 14 units/L (5-40) 04/14/18 08:01 ALT 7 units/L (7-56) 04/14/18 08:01 Alkaline Phosphatase 106 units/L (35-129) 04/14/18 08:01 Ammonia 47.0 umol/L (25-60) 04/16/18 11:17 Total Creatine Kinase 92 units/L (30-135) 04/13/18 13:59 CK-MB (CK-2) 3.7 ng/mL (0.0-4.0) 04/13/18 13:59 CK-MB (CK-2) Rel Index 4.0 (0-4) 04/13/18 13:59 Troponin T 0.010 ng/mL (0.00-0.029) 04/13/18 13:59 NT-Pro-B Natriuret Pep 57046 pg/mL (0-450) H 04/13/18 13:59 Serum Total Protein 5.6 g/dL (6.1-8.1) L 04/15/18 03:17 Total Protein 6.0 g/dL (6.3-8.2) L 04/14/18 08:01 Albumin 2.4 g/dL (3.8-4.8) L 04/15/18 03:17 Albumin/Globulin Ratio 0.8 % 04/14/18 08:01 Pggpg-2-Cwngrilae 0.4 g/dL (0.2-0.3) H 04/15/18 03:17 Cmmbc-5-Yuksqzvki 0.9 g/dL (0.5-0.9) 04/15/18 03:17 Beta Globulins 0.4 g/dL (0.2-0.5) 04/15/18 03:17 Gamma Globulins 1.2 g/dL (0.8-1.7) 04/15/18 03:17 Abnorm Protein Band 1 see below 04/15/18 03:17 PEP Interpretation see below H 04/15/18 03:17 Lipase 44 units/L (13-60) 04/13/18 13:59 Urine Color Diane (Yellow) 04/13/18 14:26 Urine Turbidity Cloudy (Clear) 04/13/18 14:26 Urine pH 5.0 (5.0-7.0) 04/13/18 14:26 Ur Specific [place] 1.017 (1.003-1.030) 04/13/18 14:26 Urine Protein >500 mg/dL (Negative) 04/13/18 14:26 Urine Glucose (UA) >=500 mg/dL (Negative) 04/13/18 14:26 Urine Ketones Neg mg/dL (Negative) 04/13/18 14:26 Urine Blood Neg (Negative) 04/13/18 14:26 Urine Nitrite Neg (Negative) 04/13/18 14:26 Urine Bilirubin Neg (Negative) 04/13/18 14:26 Urine Urobilinogen < 2.0 mg/dL (<2.0) 04/13/18 14:26 Ur Leukocyte Esterase Neg (Negative) 04/13/18 14:26 Urine WBC (Auto) 22.0 /HPF (0.0-6.0) H 04/13/18 14:26 Urine RBC (Auto) 17.0 /HPF (0.0-6.0) 04/13/18 14:26 U Epithel Cells (Auto) 3.0 /HPF (0-13.0) 04/13/18 14:26 Urine Bacteria (Auto) 4+ /HPF (Negative) 04/13/18 14:26 Urine Mucus Few /HPF 04/13/18 14:26 Urine Yeast (Budding) 3+ /HPF 04/13/18 14:26 Urine Eosinophils 7% (None Seen) 04/14/18 11:23 Urine Creatinine 85.5 mg/dL (0.1-20.0) H 04/14/18 11:23 Protein/Creatinin Ratio 1.78 04/14/18 11:23 Urine Sodium 82 mmol/L 04/14/18 11:23 Fraction Sodium Excret 2.3 04/14/18 11:23 Urine Total Protein 152 mg/dL (5-11.8) H 04/14/18 11:23 Urine Opiates Screen Presumptive negative 04/13/18 14:26 Urine Methadone Screen Presumptive negative 04/13/18 14:26 Ur Barbiturates Screen Presumptive negative 04/13/18 14:26 Levetiracetam 37.6 mcg/mL 04/13/18 19:19 Ur Phencyclidine Scrn Presumptive negative 04/13/18 14:26 Ur Amphetamines Screen Presumptive negative 04/13/18 14:26 U Benzodiazepines Scrn Presumptive negative 04/13/18 14:26 Urine Cocaine Screen Presumptive negative 04/13/18 14:26 U Marijuana (THC) Screen Presumptive negative 04/13/18 14:26 Drugs of Abuse Note Disclamer 04/13/18 14:26 Proteinase 3 (PR3) Ab <1.0 AI (<1.0) 04/14/18 11:56 Myeloperoxidase Ab <1.0 AI (<1.0) 04/14/18 11:56 Double Strand DNA Ab <1 IU/mL (<=4) 04/14/18 11:56 Complement C3 155 mg/dL (83-193) 04/14/18 11:56 Complement C4 28 mg/dL (15-57) 04/14/18 11:56 Hepatitis A IgM Ab Non-reactive (NonReactive) 04/14/18 11:56 Hep Bs Antigen Non-reactive (Negative) 04/14/18 11:56 Hep B Core IgM Ab Non-reactive (NonReactive) 04/14/18 11:56 Hepatitis C Antibody Non-reactive (NonReactive) 04/14/18 11:56 Nutrition/Malnutrition Assess - Dietary Evaluation Nutrition/Malnutrition Findings: Nutrition Notes Start: 04/14/18 09:47 Freq: Status: Active Protocol: Document 04/26/18 17:44 RM (Rec: 04/26/18 17:53 RM [id number]) Nutrition Notes Initial or Follow up Reassessment Current Diagnosis CKD(stage I-IV) COPD Diabetes Hypertension Heart Failure Respiratory Failure Stroke Other Pertinent Diagnosis Hx of seizures, Wounds on R and L LE, fungal rash on groin and ischial fold Current Diet Renal Labs/Tests Reviewed Pertinent Medications Prednisone Height 5 ft 8 in Weight 79.5 kg [place] Body Weight (lbs) 140.0 BMI 26.6 Weight change and time frame recorded wt loss likely d/t human error Subjective/Other Information Pt not in room at time of visit. Per pt nurse pt eats most of her meals. Percent of energy/protein needs met: 112%/91% Burn Absent Trauma Absent #2 Nutrition Diagnosis Increased nutrient needs ( specify in comment below) Diagnosis Progress(for reassessment Continues documentation) #1 Nutrition Diagnosis Inadequate oral intake As Evidenced by Signs and Symptoms pt nurse statement that pt eats most of her meals Diagnosis Progress(for reassessment Improved documentation) Is patient on ventilator? No Is Patient Ambulatory and/or Out of Bed No REE-([facility]-confined to bed) 1801.380 Kcal/Kg value to use for calculation 18 Approximate Energy Requirements Using 1431 kcal/Kg Calculation Used for Recommendations Kcal/kg Additional Notes Protein Needs: 64-80g (0.8-1g/ kg) Fluid needs are 1ml/kcal or per MD Nutrition Intervention Change Diet Order: Continue current Goal #1 Continue to meet at least 75% of calorie and protein needs via PO intake Anticipated Discharge Needs: Renal Follow-Up By: 04/29/18 Additional Comments Follow for confirmation of PO intakes
[2018-04-29] MEDS: LANTUS SUB-Q SCH (22:16)
[2018-04-30] MEDS: DUONEB *Not for PRN Use IH SCH ×3 (07:36→20:26)
--- NOTE | 2018-04-30 09:54 | Progress Note ---
Assessment and Plan Impression * Acute kidney injury on stage IV chronic kidney disease * Acute hypoxic respiratory failure secondary to seizure * Aspiration PNA * Chronic systolic heart failure * Atrial fibrillation * Anemia Plan: * CM notes reviewed - does not appear that insurance will pay for outpatient dialysis due to BLAS diagnosis * Will start 24h urine CrCl - if acceptable, will arrange for permcath removal and follow closely in the office * Hold HD for now * Avoid potential nephrotoxins * Dose medications for renal function * Epogen TIW prn Subjective Date of service: 04/30/18 Principal diagnosis: Acute respiratory failure, secondary to seizure episode. Chronic kidney di Interval history: Patient has no complaints Objective - Vital Signs Vital signs: Vital Signs - 12hr 04/29/18 04/29/18 04/30/18 22:00 22:32 00:18 Temperature 98.0 F Pulse Rate 84 85 Pulse Rate [ Anterior Bilateral Throughout] Pulse Rate [ 85 Left Radial] Respiratory 16 18 Rate Respiratory Rate [Anterior Bilateral Throughout] Blood Pressure 86/48 111/77 O2 Sat by Pulse 97 Oximetry 04/30/18 04/30/18 04/30/18 05:28 07:36 07:46 Temperature 97.9 F Pulse Rate 90 Pulse Rate [ 84 89 Anterior Bilateral Throughout] Pulse Rate [ Left Radial] Respiratory 17 Rate Respiratory 18 18 Rate [Anterior Bilateral Throughout] Blood Pressure 143/95 O2 Sat by Pulse 95 Oximetry 04/30/18 04/30/18 04/30/18 08:13 08:41 08:47 Temperature 97.9 F Pulse Rate 96 H Pulse Rate [ Anterior Bilateral Throughout] Pulse Rate [ 80 Left Radial] Respiratory 18 Rate Respiratory Rate [Anterior Bilateral Throughout] Blood Pressure 140/91 O2 Sat by Pulse 96 99 Oximetry - General Appearance General appearance: well-developed, well-nourished EENT: ATNC, PERRL Respiratory: Present: Clear to Ascultation Cardiology: regular, S1S2 Gastrointestinal: normal, no tenderness, no distended Integumentary: warm and dry Neurologic: no focal deficit Musculoskeletal: other (no edema) Psychiatric: cooperative - Lab 04/29/18 04:45 04/29/18 04:45 Most recent lab results Calcium 7.5 mg/dL (8.4-10.2) L 04/29/18 04:45 Phosphorus 3.10 mg/dL (2.5-4.5) 04/22/18 10:20 Magnesium 1.70 mg/dL (1.7-2.3) 04/26/18 15:25 Urine Creatinine 85.5 mg/dL (0.1-20.0) H 04/14/18 11:23 Urine Sodium 82 mmol/L 04/14/18 11:23 Urine Total Protein 152 mg/dL (5-11.8) H 04/14/18 11:23 Medications & Allergies - Medications Allergies/Adverse Reactions: Allergies No Known Allergies Allergy (Verified 04/17/18 10:03) Home Medications: Home Medications Medication Instructions Recorded Confirmed Last Taken Type Aspirin EC [Aspirin Enteric Coated 81 mg PO QDAY #30 tablet 07/22/17 04/23/18 02/17/18 Rx TAB] 81mg Labetalol [Normodyne TAB] 200 mg PO BID #60 tablet 12/04/17 Unknown Rx amLODIPine [Norvasc] 10 mg PO QDAY #30 tablet 12/04/17 04/23/18 Unknown Rx Apixaban [Eliquis] 2.5 mg PO BID 60 Days tablet 02/22/18 04/23/18 Unknown Rx AtorvaSTATin [Lipitor] 20 mg PO QHS #30 tablet 02/22/18 04/23/18 Unknown Rx Insulin Glargine,Hum.rec.anlog 20 unit SQ QHS #30 insuln.pen 02/22/18 04/23/18 Unknown Rx [Lantus Solostar] Lispro Insulin [Humalog] 0 unit SUB-Q ACHS units 02/22/18 04/23/18 Unknown Rx levETIRAcetam [Keppra TAB] 500 mg PO BID #90 tablet 02/22/18 04/23/18 Unknown Rx hydrALAZINE [Apresoline TAB] 100 mg PO TID 04/23/18 04/23/18 Unknown History Prednisone [predniSONE 5 mg (6-Day 5 mg PO .TAPER #1 tab.ds.pk 04/29/18 Unknown Rx Pack, 21 Tabs)] Active Medications: Generic Name Dose Route Start Last Admin Trade Name Freq PRN Reason Stop Dose Admin Albuterol 2.5 mg 04/13/18 14:57 Proventil IH Q3H PRN Shortness Of Breath Albuterol/Ipratropium 1 ampul 04/23/18 20:00 04/30/18 07:36 Duoneb *Not For Prn Use* IH 1 ampul TIDRT CECILE Administration Apixaban 2.5 mg 04/14/18 18:00 04/29/18 22:17 Eliquis FEEDTUBE 2.5 mg Q12HR CECILE Administration Protocol Atorvastatin Calcium 20 mg 04/23/18 22:00 04/29/18 22:17 Lipitor PO 20 mg QHS CECILE Administration Benzocaine/Menthol 1 each 04/23/18 08:51 Cepacol X Strength MM Q1HR PRN Sore Throat Dextrose 50 ml 04/14/18 19:05 04/18/18 00:15 D50w (25gm) Syringe IV 50 ml PRN PRN Administration Hypoglycemia Epoetin Kofi 10,000 unit 04/29/18 06:00 04/29/18 12:50 Procrit IV 10,000 unit MIRI PRN Administration hemodialysis Famotidine 20 mg 04/15/18 10:00 04/29/18 14:39 Pepcid PO 20 mg DAILY CECILE Administration Hydralazine HCl 10 mg 04/14/18 16:15 04/19/18 18:45 Apresoline IV 10 mg Q4HR PRN Administration SBP >150 or DBP >90 Hydrophilic Ointment 1 applic 04/13/18 13:43 Vaseline Lip Therapy TP Q2HR PRN Dry Lips Sodium Chloride 100 mls @ 999 mls/hr 04/26/18 08:52 Nacl 0.9% IV MIRI PRN Hypotension Insulin Glargine 20 units 04/28/18 22:00 04/29/18 22:16 Lantus SUB-Q 20 units QHS CECILE Administration Insulin Human Regular 0 units 04/26/18 07:30 04/29/18 22:18 Humulin R SUB-Q 1 units ACHS CECILE Administration Protocol Labetalol HCl 200 mg 04/28/18 10:00 04/29/18 22:32 Normodyne PO Not Given BID [facility] Levetiracetam 500 mg 04/22/18 22:00 04/29/18 22:17 Keppra PO 500 mg BID CECILE Administration Multi-Ingred Cream/Lotion/Oil/Oint 1 applic 04/13/18 13:43 Artificial Tears Ophth Oint OU Q4HR PRN Dry Eye(s) Prednisone 20 mg 04/28/18 10:00 04/29/18 14:40 Deltasone PO 20 mg QDAY CECILE Administration Sodium Chloride 10 ml 04/13/18 22:00 04/29/18 22:16 Sodium Chloride Flush Syringe 10 Ml IV 10 ml BID CECILE Administration Sodium Chloride 10 ml 04/13/18 14:57 04/17/18 05:42 Sodium Chloride Flush Syringe 10 Ml IV 10 ml PRN PRN Administration LINE FLUSH
[2018-04-30] MEDS: PEPCID PO SCH (10:36)
[2018-04-30] MEDS: KEPPRA PO SCH ×2 (10:36→22:26)
[2018-04-30] MEDS: HumuLIN R SUB-Q SCH ×4 (10:36→22:26)
[2018-04-30] MEDS: ELIQUIS FEEDTUBE SCH ×2 (10:36→22:56)
[2018-04-30] MEDS: DELTASONE PO SCH (10:37)
[2018-04-30] MEDS: NORMODYNE PO SCH ×2 (10:38→22:27)
[2018-04-30] MEDS: SODIUM CHLORIDE FLUSH SYRINGE 10 ML IV SCH ×2 (10:42→22:26)
--- NOTE | 2018-04-30 13:37 | Event Note ---
Date: 04/30/18 Pt s/p VC and subsequent PC placement. She is without complaint at present. D/c planning in progress. Pt eval'd earlier today. Discussed [facility] vs [facility] term access with the pt and her brother at the bedside. Reiterated the risk of infection with HD catheters. Emphasized follow up for AVF creation if she remained on HD permanently. Pt is right hand dominant. Subsequent nephrology note reviewed. 24 hr urine collection ordered. Possible PC removal based upon results.
--- NOTE | 2018-04-30 16:08 | Progress Note ---
Assessment and Plan Assessment and plan: - Patient Problems (1) ARF (acute renal failure) with tubular necrosis Current Visit: Yes Status: Acute Plan to address problem: She will receive hemodialysis 2 now be urine of 19 and creatinine of 1.9. Stable stage IV chronic kidney disease. Cath for hemodialysis has been placed. Await outpatient appointment for hemodialysis. Otherwise hemodynamically stable. Further renal work up ongoing. Per renal * Will start 24h urine CrCl - if acceptable, will arrange for permcath removal and follow closely in the office * Hold HD for now * Avoid potential nephrotoxins (2) Acute and chronic respiratory failure ([id number]) Current Visit: Yes Status: Acute S/P EXTUBATION (3) CHF (congestive heart failure) Current Visit: Yes Status: Acute Qualifiers: Heart failure type: systolic Heart failure chronicity: acute on chronic Qualified Code(s): I50.23 - Acute on chronic systolic (congestive) heart failure Plan to address problem: Patient with ejection fraction of 20%. Currently on beta natividad Lopressor. Not a candidate at this time for addition of TEOFILO inhibitor. Patient also does not appear to need diuretics at this time. (4) Diabetes type 2, Uncontrolled Current Visit: Yes Status: Acute Qualifiers: Diabetes mellitus terminal make up operator insulin use: with terminal make up operator use Diabetes mellitus complication status: with kidney complications Diabetes mellitus complication detail: with chronic kidney disease Chronic kidney disease stage: stage 4 (severe) Qualified Code(s): E11.22 - Type 2 diabetes mellitus with diabetic chronic kidney disease; N18.4 - Chronic kidney disease, stage 4 (severe); Z79.4 - terminal clerk (current) use of insulin Plan to address problem: Present patient consistently suboptimal Accu-Cheks. We'll add long-acting Lantus -Adjust to home dose of 20units. Accu-Cheks [id number] and 3 O2 ?if uncontrolled due to steroids. 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 (7) Acute on chronic renal failure Current Visit: No Status: Acute Qualifiers: Chronic kidney disease stage: stage 4 (severe) (8) CVA (cerebral infarction) Current Visit: No Status: Acute Qualifiers: Cerebral infarction mechanism: thrombosis Laterality of affected vessel: right DVT/GI prophy Awaiting HD set up for discharge, History Interval history: Patient seen and examined today, resting comfortably, no new complaints. pending discharge set up Hospitalist Physical - Physical exam Narrative exam: General appearance: Present: no acute distress - EENT Eyes: Present: PERRL ENT: hearing decreased, poor dentition - Neck Neck: Present: supple, normal ROM - Respiratory Respiratory: bilateral: CTA - Cardiovascular Rhythm: regular - Extremities Extremities: No edema Extremity abnormal: other (extensive wounds over her lower extremities. dressing in place) Peripheral Pulses: abnormal - Abdominal General gastrointestinal: soft, non-distended, normal bowel sounds - Integumentary Integumentary: Present: erythema. Absent: jaundice, rash - Psychiatric Psychiatric: other alert and oriented x2 - Constitutional Vitals: Temp Pulse Resp BP Pulse Ox 97.9 F 91 H 18 122/84 98 04/30/18 11:34 04/30/18 13:36 04/30/18 13:36 04/30/18 11:34 04/30/18 11:34 General appearance: Present: no acute distress Results - Labs CBC & Chem 7: 04/29/18 04:45 04/29/18 04:45 Labs: Laboratory Last Values WBC 7.6 K/mm3 (4.5-11.0) 04/29/18 04:45 RBC 2.59 M/mm3 (3.65-5.03) L 04/29/18 04:45 Hgb 8.3 gm/dl (10.1-14.3) L 04/29/18 04:45 Hct 25.5 % (30.3-42.9) L 04/29/18 04:45 MCV 98 fl (79-97) H 04/29/18 04:45 MCH 32 pg (28-32) 04/29/18 04:45 MCHC 33 % (30-34) 04/29/18 04:45 RDW 15.2 % (13.2-15.2) 04/29/18 04:45 Plt Count 208 K/mm3 (140-440) 04/29/18 04:45 Lymph % (Auto) 10.5 % (13.4-35.0) L 04/25/18 04:26 [place] % (Auto) 4.5 % (0.0-7.3) 04/25/18 04:26 Eos % (Auto) 1.2 % (0.0-4.3) 04/25/18 04:26 Baso % (Auto) 0.6 % (0.0-1.8) 04/25/18 04:26 Lymph # 1.1 K/mm3 (1.2-5.4) L 04/25/18 04:26 [place] # 0.5 K/mm3 (0.0-0.8) 04/25/18 04:26 Eos # 0.1 K/mm3 (0.0-0.4) 04/25/18 04:26 Baso # 0.1 K/mm3 (0.0-0.1) 04/25/18 04:26 Seg Neutrophils % 83.2 % (40.0-70.0) H 04/25/18 04:26 Seg Neutrophils # 8.5 K/mm3 (1.8-7.7) H 04/25/18 04:26 PT 14.3 Sec. (12.2-14.9) 04/13/18 13:41 INR 1.07 (0.87-1.13) 04/13/18 13:41 APTT 28.9 Sec. (24.2-36.6) 04/13/18 13:41 Thrombin Time 17.3 Sec. (15.1-19.6) 04/13/18 13:41 POC ABG pH 7.308 (7.35-7.45) L 04/17/18 20:40 POC ABG pCO2 31.3 (35-45) L 04/17/18 20:40 POC ABG pO2 61 (80-105) L 04/17/18 20:40 POC ABG HCO3 15.7 04/17/18 20:40 POC ABG Total CO2 17 04/17/18 20:40 POC ABG O2 Sat 89 04/17/18 20:40 POC ABG Base Excess -11 04/17/18 20:40 FiO2 30 % 04/17/18 20:40 Sodium 136 mmol/L (137-145) L 04/29/18 04:45 Potassium 4.3 mmol/L (3.6-5.0) 04/29/18 04:45 Chloride 96.7 mmol/L (98-107) L 04/29/18 04:45 Carbon Dioxide 24 mmol/L (22-30) 04/29/18 04:45 Anion Gap 20 mmol/L 04/29/18 04:45 BUN 50 mg/dL (7-17) H 04/29/18 04:45 Creatinine 4.5 mg/dL (0.7-1.2) H D 04/29/18 04:45 Estimated GFR 11 ml/min 04/29/18 04:45 BUN/Creatinine Ratio 11 % 04/29/18 04:45 Glucose 96 mg/dL (65-100) 04/29/18 04:45 POC Glucose 162 (70-105) H 04/29/18 21:18 Lactic Acid 1.10 mmol/L (0.7-2.0) 04/13/18 16:23 Calcium 7.5 mg/dL (8.4-10.2) L 04/29/18 04:45 Phosphorus 3.10 mg/dL (2.5-4.5) 04/22/18 10:20 Magnesium 1.70 mg/dL (1.7-2.3) 04/26/18 15:25 Total Bilirubin 0.60 mg/dL (0.1-1.2) 04/14/18 08:01 Direct Bilirubin 0.2 mg/dL (0-0.2) 04/13/18 13:59 Indirect Bilirubin 0.3 mg/dL 04/13/18 13:59 AST 14 units/L (5-40) 04/14/18 08:01 ALT 7 units/L (7-56) 04/14/18 08:01 Alkaline Phosphatase 106 units/L (35-129) 04/14/18 08:01 Ammonia 47.0 umol/L (25-60) 04/16/18 11:17 Total Creatine Kinase 92 units/L (30-135) 04/13/18 13:59 CK-MB (CK-2) 3.7 ng/mL (0.0-4.0) 04/13/18 13:59 CK-MB (CK-2) Rel Index 4.0 (0-4) 04/13/18 13:59 Troponin T 0.010 ng/mL (0.00-0.029) 04/13/18 13:59 NT-Pro-B Natriuret Pep 53578 pg/mL (0-450) H 04/13/18 13:59 Serum Total Protein 5.6 g/dL (6.1-8.1) L 04/15/18 03:17 Total Protein 6.0 g/dL (6.3-8.2) L 04/14/18 08:01 Albumin 2.4 g/dL (3.8-4.8) L 04/15/18 03:17 Albumin/Globulin Ratio 0.8 % 04/14/18 08:01 Cymde-4-Vhfompybz 0.4 g/dL (0.2-0.3) H 04/15/18 03:17 Pxfpq-4-Kesfriuhq 0.9 g/dL (0.5-0.9) 04/15/18 03:17 Beta Globulins 0.4 g/dL (0.2-0.5) 04/15/18 03:17 Gamma Globulins 1.2 g/dL (0.8-1.7) 04/15/18 03:17 Abnorm Protein Band 1 see below 04/15/18 03:17 PEP Interpretation see below H 04/15/18 03:17 Lipase 44 units/L (13-60) 04/13/18 13:59 Urine Color Diane (Yellow) 04/13/18 14:26 Urine Turbidity Cloudy (Clear) 04/13/18 14:26 Urine pH 5.0 (5.0-7.0) 04/13/18 14:26 Ur Specific [place] 1.017 (1.003-1.030) 04/13/18 14:26 Urine Protein >500 mg/dL (Negative) 04/13/18 14:26 Urine Glucose (UA) >=500 mg/dL (Negative) 04/13/18 14:26 Urine Ketones Neg mg/dL (Negative) 04/13/18 14:26 Urine Blood Neg (Negative) 04/13/18 14:26 Urine Nitrite Neg (Negative) 04/13/18 14:26 Urine Bilirubin Neg (Negative) 04/13/18 14:26 Urine Urobilinogen < 2.0 mg/dL (<2.0) 04/13/18 14:26 Ur Leukocyte Esterase Neg (Negative) 04/13/18 14:26 Urine WBC (Auto) 22.0 /HPF (0.0-6.0) H 04/13/18 14:26 Urine RBC (Auto) 17.0 /HPF (0.0-6.0) 04/13/18 14:26 U Epithel Cells (Auto) 3.0 /HPF (0-13.0) 04/13/18 14:26 Urine Bacteria (Auto) 4+ /HPF (Negative) 04/13/18 14:26 Urine Mucus Few /HPF 04/13/18 14:26 Urine Yeast (Budding) 3+ /HPF 04/13/18 14:26 Urine Eosinophils 7% (None Seen) 04/14/18 11:23 Urine Creatinine 85.5 mg/dL (0.1-20.0) H 04/14/18 11:23 Protein/Creatinin Ratio 1.78 04/14/18 11:23 Urine Sodium 82 mmol/L 04/14/18 11:23 Fraction Sodium Excret 2.3 04/14/18 11:23 Urine Total Protein 152 mg/dL (5-11.8) H 04/14/18 11:23 Urine Opiates Screen Presumptive negative 04/13/18 14:26 Urine Methadone Screen Presumptive negative 04/13/18 14:26 Ur Barbiturates Screen Presumptive negative 04/13/18 14:26 Levetiracetam 37.6 mcg/mL 04/13/18 19:19 Ur Phencyclidine Scrn Presumptive negative 04/13/18 14:26 Ur Amphetamines Screen Presumptive negative 04/13/18 14:26 U Benzodiazepines Scrn Presumptive negative 04/13/18 14:26 Urine Cocaine Screen Presumptive negative 04/13/18 14:26 U Marijuana (THC) Screen Presumptive negative 04/13/18 14:26 Drugs of Abuse Note Disclamer 04/13/18 14:26 Proteinase 3 (PR3) Ab <1.0 AI (<1.0) 04/14/18 11:56 Myeloperoxidase Ab <1.0 AI (<1.0) 04/14/18 11:56 Double Strand DNA Ab <1 IU/mL (<=4) 04/14/18 11:56 Complement C3 155 mg/dL (83-193) 04/14/18 11:56 Complement C4 28 mg/dL (15-57) 04/14/18 11:56 Hepatitis A IgM Ab Non-reactive (NonReactive) 04/14/18 11:56 Hep Bs Antigen Non-reactive (Negative) 04/14/18 11:56 Hep B Core IgM Ab Non-reactive (NonReactive) 04/14/18 11:56 Hepatitis C Antibody Non-reactive (NonReactive) 04/14/18 11:56 Nutrition/Malnutrition Assess - Dietary Evaluation Nutrition/Malnutrition Findings: Nutrition Notes Start: 04/14/18 09:47 Freq: Status: Active Protocol: Document 04/29/18 16:48 OL (Rec: 04/29/18 16:51 OL [id number]) Nutrition Notes Initial or Follow up Reassessment Current Diagnosis CKD(stage I-IV) COPD Diabetes Hypertension Heart Failure Respiratory Failure Stroke Other Pertinent Diagnosis Hx of seizures, Wounds on R and L LE, fungal rash on groin and ischial fold Current Diet Renal Labs/Tests Reviewed Pertinent Medications Reviewed Height 5 ft 8 in Weight 82.2 kg [place] Body Weight (lbs) 140.0 BMI 27.5 Subjective/Other Information Pt. reports consuming 100% of meals. Pt. denies N/V/C/D. Pt. discharging home today and is eager to leave hospital. Pt. on HD. Burn Absent Trauma Absent #2 Nutrition Diagnosis Increased nutrient needs ( specify in comment below) Diagnosis Progress(for reassessment Continues documentation) #1 Nutrition Diagnosis Inadequate oral intake As Evidenced by Signs and Symptoms Pt. consuming 100% of meals Diagnosis Progress(for reassessment Improved documentation) Is patient on ventilator? No Is Patient Ambulatory and/or Out of Bed No REE-([facility]-confined to bed) [phone] Calculation Used for Recommendations [facility] Additional Notes protein (1.2-1.4g/kg): 99-115 fluid: 1mL/kcal or per MD Nutrition Intervention Change Diet Order: Continue Renal Goal #1 Continue to meet at least 75% of calorie and protein needs via PO intake Anticipated Discharge Needs: Renal Follow-Up By: 05/03/18 Additional Comments f/u: stable intake
[2018-04-30] MEDS: LANTUS SUB-Q SCH (22:27)
[2018-05-01] MEDS: DUONEB *Not for PRN Use IH SCH ×4 (08:17→19:55)
[2018-05-01] MEDS: HumuLIN R SUB-Q SCH ×5 (08:49→21:52)
--- NOTE | 2018-05-01 09:14 | Progress Note ---
Assessment and Plan Impression * Acute kidney injury on stage IV chronic kidney disease * Acute hypoxic respiratory failure secondary to seizure * Aspiration PNA * Chronic systolic heart failure * Atrial fibrillation * Anemia Plan: * CM notes reviewed - does not appear that insurance will pay for outpatient dialysis due to BLAS diagnosis * 24h urine CrCl in progress - if acceptable, will arrange for permcath removal and follow closely in the office * Hold HD for now * Avoid potential nephrotoxins * Dose medications for renal function * Epogen TIW prn Subjective Date of service: 05/01/18 Principal diagnosis: Acute respiratory failure, secondary to seizure episode. Chronic kidney di Interval history: Patient has no complaint today Objective - Vital Signs Vital signs: Vital Signs - 12hr 04/30/18 04/30/18 05/01/18 21:40 22:27 00:04 Temperature 98.5 F Pulse Rate 95 H 83 Pulse Rate [ Anterior Bilateral Throughout] Pulse Rate [ Bilateral] Respiratory 16 Rate Respiratory Rate [Anterior Bilateral Throughout] Respiratory Rate [Bilateral ] Blood Pressure 123/79 123/79 108/65 O2 Sat by Pulse 96 Oximetry 05/01/18 05/01/18 05:19 08:17 Temperature 97.7 F Pulse Rate 79 Pulse Rate [ 88 Anterior Bilateral Throughout] Pulse Rate [ 84 Bilateral] Respiratory 16 Rate Respiratory 16 Rate [Anterior Bilateral Throughout] Respiratory 16 Rate [Bilateral ] Blood Pressure 122/81 O2 Sat by Pulse 97 Oximetry - General Appearance General appearance: well-developed, well-nourished EENT: ATNC Respiratory: Present: Clear to Ascultation Cardiology: regular, S1S2 Gastrointestinal: normal, no tenderness, no distended Integumentary: warm and dry Neurologic: no focal deficit, alert and oriented x3 Musculoskeletal: other (no edema) Psychiatric: cooperative - Lab 04/29/18 04:45 04/29/18 04:45 Most recent lab results Calcium 7.5 mg/dL (8.4-10.2) L 04/29/18 04:45 Phosphorus 3.10 mg/dL (2.5-4.5) 04/22/18 10:20 Magnesium 1.70 mg/dL (1.7-2.3) 04/26/18 15:25 Urine Creatinine 85.5 mg/dL (0.1-20.0) H 04/14/18 11:23 Urine Sodium 82 mmol/L 04/14/18 11:23 Urine Total Protein 152 mg/dL (5-11.8) H 04/14/18 11:23 Medications & Allergies - Medications Allergies/Adverse Reactions: Allergies No Known Allergies Allergy (Verified 04/17/18 10:03) Home Medications: Home Medications Medication Instructions Recorded Confirmed Last Taken Type Aspirin EC [Aspirin Enteric Coated 81 mg PO QDAY #30 tablet 07/22/17 04/23/18 02/17/18 Rx TAB] 81mg Labetalol [Normodyne TAB] 200 mg PO BID #60 tablet 12/04/17 Unknown Rx amLODIPine [Norvasc] 10 mg PO QDAY #30 tablet 12/04/17 04/23/18 Unknown Rx Apixaban [Eliquis] 2.5 mg PO BID 60 Days tablet 02/22/18 04/23/18 Unknown Rx AtorvaSTATin [Lipitor] 20 mg PO QHS #30 tablet 02/22/18 04/23/18 Unknown Rx Insulin Glargine,Hum.rec.anlog 20 unit SQ QHS #30 insuln.pen 02/22/18 04/23/18 Unknown Rx [Lantus Solostar] Lispro Insulin [Humalog] 0 unit SUB-Q ACHS units 02/22/18 04/23/18 Unknown Rx levETIRAcetam [Keppra TAB] 500 mg PO BID #90 tablet 02/22/18 04/23/18 Unknown Rx hydrALAZINE [Apresoline TAB] 100 mg PO TID 04/23/18 04/23/18 Unknown History Prednisone [predniSONE 5 mg (6-Day 5 mg PO .TAPER #1 tab.ds.pk 04/29/18 Unknown Rx Pack, 21 Tabs)] Active Medications: Generic Name Dose Route Start Last Admin Trade Name Freq PRN Reason Stop Dose Admin Albuterol 2.5 mg 04/13/18 14:57 Proventil IH Q3H PRN Shortness Of Breath Albuterol/Ipratropium 1 ampul 04/23/18 20:00 05/01/18 08:17 Duoneb *Not For Prn Use* IH 1 ampul TIDRT CECIEL Administration Apixaban 2.5 mg 04/14/18 18:00 04/30/18 22:56 Eliquis FEEDTUBE 2.5 mg Q12HR CECILE Administration Protocol Atorvastatin Calcium 20 mg 04/23/18 22:00 04/30/18 22:26 Lipitor PO 20 mg QHS CECILE Administration Benzocaine/Menthol 1 each 04/23/18 08:51 Cepacol X Strength MM Q1HR PRN Sore Throat Dextrose 50 ml 04/14/18 19:05 04/18/18 00:15 D50w (25gm) Syringe IV 50 ml PRN PRN Administration Hypoglycemia Epoetin Kofi 10,000 unit 04/29/18 06:00 04/29/18 12:50 Procrit IV 10,000 unit MIRI PRN Administration hemodialysis Famotidine 20 mg 04/15/18 10:00 04/30/18 10:36 Pepcid PO 20 mg DAILY CECILE Administration Hydralazine HCl 10 mg 04/14/18 16:15 04/19/18 18:45 Apresoline IV 10 mg Q4HR PRN Administration SBP >150 or DBP >90 Hydrophilic Ointment 1 applic 04/13/18 13:43 Vaseline Lip Therapy TP Q2HR PRN Dry Lips Sodium Chloride 100 mls @ 999 mls/hr 04/26/18 08:52 Nacl 0.9% IV MIRI PRN Hypotension Insulin Glargine 20 units 04/28/18 22:00 04/30/18 22:27 Lantus SUB-Q 20 units QHS CECILE Administration Insulin Human Regular 0 units 04/26/18 07:30 05/01/18 08:49 Humulin R SUB-Q Not Given ACHS [facility] Protocol Labetalol HCl 200 mg 04/28/18 10:00 04/30/18 22:27 Normodyne PO 200 mg BID CECILE Administration Levetiracetam 500 mg 04/22/18 22:00 04/30/18 22:26 Keppra PO 500 mg BID CECILE Administration Multi-Ingred Cream/Lotion/Oil/Oint 1 applic 04/13/18 13:43 Artificial Tears Ophth Oint OU Q4HR PRN Dry Eye(s) Prednisone 20 mg 04/28/18 10:00 04/30/18 10:37 Deltasone PO 20 mg QDAY CECILE Administration Sodium Chloride 10 ml 04/13/18 22:00 04/30/18 22:26 Sodium Chloride Flush Syringe 10 Ml IV 10 ml BID CECILE Administration Sodium Chloride 10 ml 04/13/18 14:57 04/17/18 05:42 Sodium Chloride Flush Syringe 10 Ml IV 10 ml PRN PRN Administration LINE FLUSH
[2018-05-01] MEDS ORDERED: NACL 0.9 (PRIMING MACHINE ONLY DIALYSIS) MC ONE (11:05)
[2018-05-01] MEDS: KEPPRA PO SCH ×2 (11:20→21:53)
[2018-05-01] MEDS: NORMODYNE PO SCH ×2 (11:20→21:54)
[2018-05-01] MEDS: DELTASONE PO SCH (11:20)
[2018-05-01] MEDS: PEPCID PO SCH (11:21)
[2018-05-01] MEDS: SODIUM CHLORIDE FLUSH SYRINGE 10 ML IV SCH ×2 (11:21→21:57)
[2018-05-01] MEDS: ELIQUIS FEEDTUBE SCH ×2 (11:53→21:54)
--- NOTE | 2018-05-01 14:28 | Progress Note ---
Assessment and Plan Assessment and plan: - Patient Problems (1) ARF (acute renal failure) with tubular necrosis Current Visit: Yes Status: Acute Plan to address problem: She will receive hemodialysis 2 now be urine of 19 and creatinine of 1.9. Stable stage IV chronic kidney disease. Cath for hemodialysis has been placed. Await outpatient appointment for hemodialysis. Otherwise hemodynamically stable. Further renal work up ongoing. Per renal * Will start 24h urine CrCl - if acceptable, will arrange for permcath removal and follow closely in the office. awaiting finaly result * Hold HD for now * Avoid potential nephrotoxins (2) Acute and chronic respiratory failure ([id number]) Current Visit: Yes Status: Acute S/P EXTUBATION (3) CHF (congestive heart failure) Current Visit: Yes Status: Acute Qualifiers: Heart failure type: systolic Heart failure chronicity: acute on chronic Qualified Code(s): I50.23 - Acute on chronic systolic (congestive) heart failure Plan to address problem: Patient with ejection fraction of 20%. Currently on beta natividad Lopressor. Not a candidate at this time for addition of TEOFILO inhibitor. Patient also does not appear to need diuretics at this time. (4) Diabetes type 2, Uncontrolled Current Visit: Yes Status: Acute Qualifiers: Diabetes mellitus care home insulin use: with care home use Diabetes mellitus complication status: with kidney complications Diabetes mellitus complication detail: with chronic kidney disease Chronic kidney disease stage: stage 4 (severe) Qualified Code(s): E11.22 - Type 2 diabetes mellitus with diabetic chronic kidney disease; N18.4 - Chronic kidney disease, stage 4 (severe); Z79.4 - rumper (current) use of insulin Plan to address problem: Present patient consistently suboptimal Accu-Cheks. We'll add long-acting Lantus -Adjust to home dose of 20units. Accu-Cheks [id number] and 3 O2 ?if uncontrolled due to steroids. 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 (7) Acute on chronic renal failure Current Visit: No Status: Acute Qualifiers: Chronic kidney disease stage: stage 4 (severe) (8) CVA (cerebral infarction) Current Visit: No Status: Acute Qualifiers: Cerebral infarction mechanism: thrombosis Laterality of affected vessel: right DVT/GI prophy Awaiting HD set up for discharge, History Interval history: Patient seen and examined today, resting comfortably, no new complaints. 24 hr urine work up ongoing Hospitalist Physical - Physical exam Narrative exam: General appearance: Present: no acute distress - EENT Eyes: Present: PERRL ENT: hearing decreased, poor dentition - Neck Neck: Present: supple, normal ROM - Respiratory Respiratory: bilateral: CTA - Cardiovascular Rhythm: regular - Extremities Extremities: No edema Extremity abnormal: other (extensive wounds over her lower extremities. dressing in place) Peripheral Pulses: abnormal - Abdominal General gastrointestinal: soft, non-distended, normal bowel sounds - Integumentary Integumentary: Present: erythema. Absent: jaundice, rash - Psychiatric Psychiatric: other alert and oriented x2 - Constitutional Vitals: Temp Pulse Resp BP Pulse Ox 32.1 F L 83 16 113/76 97 05/01/18 11:42 05/01/18 12:52 05/01/18 12:52 05/01/18 11:42 05/01/18 11:42 General appearance: Present: no acute distress Results - Labs CBC & Chem 7: 04/29/18 04:45 04/29/18 04:45 Labs: Laboratory Last Values WBC 7.6 K/mm3 (4.5-11.0) 04/29/18 04:45 RBC 2.59 M/mm3 (3.65-5.03) L 04/29/18 04:45 Hgb 8.3 gm/dl (10.1-14.3) L 04/29/18 04:45 Hct 25.5 % (30.3-42.9) L 04/29/18 04:45 MCV 98 fl (79-97) H 04/29/18 04:45 MCH 32 pg (28-32) 04/29/18 04:45 MCHC 33 % (30-34) 04/29/18 04:45 RDW 15.2 % (13.2-15.2) 04/29/18 04:45 Plt Count 208 K/mm3 (140-440) 04/29/18 04:45 Lymph % (Auto) 10.5 % (13.4-35.0) L 04/25/18 04:26 [place] % (Auto) 4.5 % (0.0-7.3) 04/25/18 04:26 Eos % (Auto) 1.2 % (0.0-4.3) 04/25/18 04:26 Baso % (Auto) 0.6 % (0.0-1.8) 04/25/18 04:26 Lymph # 1.1 K/mm3 (1.2-5.4) L 04/25/18 04:26 [place] # 0.5 K/mm3 (0.0-0.8) 04/25/18 04:26 Eos # 0.1 K/mm3 (0.0-0.4) 04/25/18 04:26 Baso # 0.1 K/mm3 (0.0-0.1) 04/25/18 04:26 Seg Neutrophils % 83.2 % (40.0-70.0) H 04/25/18 04:26 Seg Neutrophils # 8.5 K/mm3 (1.8-7.7) H 04/25/18 04:26 PT 14.3 Sec. (12.2-14.9) 04/13/18 13:41 INR 1.07 (0.87-1.13) 04/13/18 13:41 APTT 28.9 Sec. (24.2-36.6) 04/13/18 13:41 Thrombin Time 17.3 Sec. (15.1-19.6) 04/13/18 13:41 POC ABG pH 7.308 (7.35-7.45) L 04/17/18 20:40 POC ABG pCO2 31.3 (35-45) L 04/17/18 20:40 POC ABG pO2 61 (80-105) L 04/17/18 20:40 POC ABG HCO3 15.7 04/17/18 20:40 POC ABG Total CO2 17 04/17/18 20:40 POC ABG O2 Sat 89 04/17/18 20:40 POC ABG Base Excess -11 04/17/18 20:40 FiO2 30 % 04/17/18 20:40 Sodium 136 mmol/L (137-145) L 04/29/18 04:45 Potassium 4.3 mmol/L (3.6-5.0) 04/29/18 04:45 Chloride 96.7 mmol/L (98-107) L 04/29/18 04:45 Carbon Dioxide 24 mmol/L (22-30) 04/29/18 04:45 Anion Gap 20 mmol/L 04/29/18 04:45 BUN 50 mg/dL (7-17) H 04/29/18 04:45 Creatinine 4.5 mg/dL (0.7-1.2) H D 04/29/18 04:45 Estimated GFR 11 ml/min 04/29/18 04:45 BUN/Creatinine Ratio 11 % 04/29/18 04:45 Glucose 96 mg/dL (65-100) 04/29/18 04:45 POC Glucose 67 (70-105) L 05/01/18 11:48 Lactic Acid 1.10 mmol/L (0.7-2.0) 04/13/18 16:23 Calcium 7.5 mg/dL (8.4-10.2) L 04/29/18 04:45 Phosphorus 3.10 mg/dL (2.5-4.5) 04/22/18 10:20 Magnesium 1.70 mg/dL (1.7-2.3) 04/26/18 15:25 Total Bilirubin 0.60 mg/dL (0.1-1.2) 04/14/18 08:01 Direct Bilirubin 0.2 mg/dL (0-0.2) 04/13/18 13:59 Indirect Bilirubin 0.3 mg/dL 04/13/18 13:59 AST 14 units/L (5-40) 04/14/18 08:01 ALT 7 units/L (7-56) 04/14/18 08:01 Alkaline Phosphatase 106 units/L (35-129) 04/14/18 08:01 Ammonia 47.0 umol/L (25-60) 04/16/18 11:17 Total Creatine Kinase 92 units/L (30-135) 04/13/18 13:59 CK-MB (CK-2) 3.7 ng/mL (0.0-4.0) 04/13/18 13:59 CK-MB (CK-2) Rel Index 4.0 (0-4) 04/13/18 13:59 Troponin T 0.010 ng/mL (0.00-0.029) 04/13/18 13:59 NT-Pro-B Natriuret Pep 09543 pg/mL (0-450) H 04/13/18 13:59 Serum Total Protein 5.6 g/dL (6.1-8.1) L 04/15/18 03:17 Total Protein 6.0 g/dL (6.3-8.2) L 04/14/18 08:01 Albumin 2.4 g/dL (3.8-4.8) L 04/15/18 03:17 Albumin/Globulin Ratio 0.8 % 04/14/18 08:01 Isxsd-6-Srnzxfkve 0.4 g/dL (0.2-0.3) H 04/15/18 03:17 Tudti-7-Kqdyzkkzf 0.9 g/dL (0.5-0.9) 04/15/18 03:17 Beta Globulins 0.4 g/dL (0.2-0.5) 04/15/18 03:17 Gamma Globulins 1.2 g/dL (0.8-1.7) 04/15/18 03:17 Abnorm Protein Band 1 see below 04/15/18 03:17 PEP Interpretation see below H 04/15/18 03:17 Lipase 44 units/L (13-60) 04/13/18 13:59 Urine Color [place] (Yellow) 04/13/18 14:26 Urine Turbidity Cloudy (Clear) 04/13/18 14:26 Urine pH 5.0 (5.0-7.0) 04/13/18 14:26 Ur Specific [place] 1.017 (1.003-1.030) 04/13/18 14:26 Urine Protein >500 mg/dL (Negative) 04/13/18 14:26 Urine Glucose (UA) >=500 mg/dL (Negative) 04/13/18 14:26 Urine Ketones Neg mg/dL (Negative) 04/13/18 14:26 Urine Blood Neg (Negative) 04/13/18 14:26 Urine Nitrite Neg (Negative) 04/13/18 14:26 Urine Bilirubin Neg (Negative) 04/13/18 14:26 Urine Urobilinogen < 2.0 mg/dL (<2.0) 04/13/18 14:26 Ur Leukocyte Esterase Neg (Negative) 04/13/18 14:26 Urine WBC (Auto) 22.0 /HPF (0.0-6.0) H 04/13/18 14:26 Urine RBC (Auto) 17.0 /HPF (0.0-6.0) 04/13/18 14:26 U Epithel Cells (Auto) 3.0 /HPF (0-13.0) 04/13/18 14:26 Urine Bacteria (Auto) 4+ /HPF (Negative) 04/13/18 14:26 Urine Mucus Few /HPF 04/13/18 14:26 Urine Yeast (Budding) 3+ /HPF 04/13/18 14:26 Urine Eosinophils 7% (None Seen) 04/14/18 11:23 Urine Creatinine 85.5 mg/dL (0.1-20.0) H 04/14/18 11:23 Protein/Creatinin Ratio 1.78 04/14/18 11:23 Urine Sodium 82 mmol/L 04/14/18 11:23 Fraction Sodium Excret 2.3 04/14/18 11:23 Urine Total Protein 152 mg/dL (5-11.8) H 04/14/18 11:23 Urine Opiates Screen Presumptive negative 04/13/18 14:26 Urine Methadone Screen Presumptive negative 04/13/18 14:26 Ur Barbiturates Screen Presumptive negative 04/13/18 14:26 Levetiracetam 37.6 mcg/mL 04/13/18 19:19 Ur Phencyclidine Scrn Presumptive negative 04/13/18 14:26 Ur Amphetamines Screen Presumptive negative 04/13/18 14:26 U Benzodiazepines Scrn Presumptive negative 04/13/18 14:26 Urine Cocaine Screen Presumptive negative 04/13/18 14:26 U Marijuana (THC) Screen Presumptive negative 04/13/18 14:26 Drugs of Abuse Note Disclamer 04/13/18 14:26 Proteinase 3 (PR3) Ab <1.0 AI (<1.0) 04/14/18 11:56 Myeloperoxidase Ab <1.0 AI (<1.0) 04/14/18 11:56 Double Strand DNA Ab <1 IU/mL (<=4) 04/14/18 11:56 Complement C3 155 mg/dL (83-193) 04/14/18 11:56 Complement C4 28 mg/dL (15-57) 04/14/18 11:56 Hepatitis A IgM Ab Non-reactive (NonReactive) 04/14/18 11:56 Hep Bs Antigen Non-reactive (Negative) 04/14/18 11:56 Hep B Core IgM Ab Non-reactive (NonReactive) 04/14/18 11:56 Hepatitis C Antibody Non-reactive (NonReactive) 04/14/18 11:56 Nutrition/Malnutrition Assess - Dietary Evaluation Nutrition/Malnutrition Findings: Nutrition Notes Start: 04/14/18 09:47 Freq: Status: Active Protocol: Document 04/29/18 16:48 OL (Rec: 04/29/18 16:51 OL [email or web address]-[id number]) Nutrition Notes Initial or Follow up Reassessment Current Diagnosis CKD(stage I-IV) COPD Diabetes Hypertension Heart Failure Respiratory Failure Stroke Other Pertinent Diagnosis Hx of seizures, Wounds on R and L LE, fungal rash on groin and ischial fold Current Diet Renal Labs/Tests Reviewed Pertinent Medications Reviewed Height 5 ft 8 in Weight 82.2 kg [place] Body Weight (lbs) 140.0 BMI 27.5 Subjective/Other Information Pt. reports consuming 100% of meals. Pt. denies N/V/C/D. Pt. discharging home today and is eager to leave hospital. Pt. on HD. Burn Absent Trauma Absent #2 Nutrition Diagnosis Increased nutrient needs ( specify in comment below) Diagnosis Progress(for reassessment Continues documentation) #1 Nutrition Diagnosis Inadequate oral intake As Evidenced by Signs and Symptoms Pt. consuming 100% of meals Diagnosis Progress(for reassessment Improved documentation) Is patient on ventilator? No Is Patient Ambulatory and/or Out of Bed No REE-([facility]-confined to bed) 4543.663 Calculation Used for Recommendations [facility] Additional Notes protein (1.2-1.4g/kg): 99-115 fluid: 1mL/kcal or per MD Nutrition Intervention Change Diet Order: Continue Renal Goal #1 Continue to meet at least 75% of calorie and protein needs via PO intake Anticipated Discharge Needs: Renal Follow-Up By: 05/03/18 Additional Comments f/u: stable intake
[2018-05-01] MEDS: LANTUS SUB-Q SCH (21:53)
[2018-05-02 05:58] LABS: Hematocrit 27.3 % (30.3-42.9); Hemoglobin 8.9 gm/dl (10.1-14.3); Mean Corpuscular HGB Conc 33 % (30-34); Mean Corpuscular Volume 100 fl (79-97); Platelet Count 240 K/mm3 (140-440); Red Blood Count 2.73 M/mm3 (3.65-5.03); Red Cell Distribution Width 15.4 % (13.2-15.2)
[2018-05-02 06:17] LABS: Calcium 7.1 mg/dL (8.4-10.2)
--- NOTE | 2018-05-02 07:35 | Progress Note ---
Assessment and Plan Assessment and plan: - Patient Problems (1) ARF (acute renal failure) with tubular necrosis Current Visit: Yes Status: Acute Plan to address problem: She will receive hemodialysis 2 now be urine of 19 and creatinine of 1.9. Stable stage IV chronic kidney disease. Cath for hemodialysis has been placed. Await outpatient appointment for hemodialysis. Otherwise hemodynamically stable. Further renal work up ongoing. Per renal * Will start 24h urine CrCl - if acceptable, will arrange for permcath removal and follow closely in the office. awaiting finaly result- Was unable to obtain due to voiding only once yesterday and was mixed with stool. Patient not having diarrhea. Await final Nephrology input. * Hold HD for now * Avoid potential nephrotoxins (2) Acute and chronic respiratory failure ([id number]) Current Visit: Yes Status: Acute S/P EXTUBATION (3) CHF (congestive heart failure) Current Visit: Yes Status: Acute Qualifiers: Heart failure type: systolic Heart failure chronicity: acute on chronic Qualified Code(s): I50.23 - Acute on chronic systolic (congestive) heart failure Plan to address problem: Patient with ejection fraction of 20%. Currently on beta natividad Lopressor. Not a candidate at this time for addition of TEOFILO inhibitor. Patient also does not appear to need diuretics at this time. (4) Diabetes type 2, Uncontrolled Current Visit: Yes Status: Acute Qualifiers: Diabetes mellitus penitentiary insulin use: with health program manager use Diabetes mellitus complication status: with kidney complications Diabetes mellitus complication detail: with chronic kidney disease Chronic kidney disease stage: stage 4 (severe) Qualified Code(s): E11.22 - Type 2 diabetes mellitus with diabetic chronic kidney disease; N18.4 - Chronic kidney disease, stage 4 (severe); Z79.4 - safety scientist (current) use of insulin Plan to address problem: Present patient consistently suboptimal Accu-Cheks. We'll add long-acting Lantus -Adjust to home dose of 20units. Accu-Cheks [id number] and 3 O2 ?if uncontrolled due to steroids. 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 (7) Acute on chronic renal failure Current Visit: No Status: Acute Qualifiers: Chronic kidney disease stage: stage 4 (severe) (8) CVA (cerebral infarction) Current Visit: No Status: Acute Qualifiers: Cerebral infarction mechanism: thrombosis Laterality of affected vessel: right DVT/GI prophy Awaiting HD set up for discharge, History Interval history: Patient seen and examined today, resting comfortably, no new complaints. 24 hr urine work up ongoing Hospitalist Physical - Physical exam Narrative exam: General appearance: Present: no acute distress - EENT Eyes: Present: PERRL ENT: hearing decreased, poor dentition - Neck Neck: Present: supple, normal ROM - Respiratory Respiratory: bilateral: CTA - Cardiovascular Rhythm: regular - Extremities Extremities: No edema Extremity abnormal: other (extensive wounds over her lower extremities. dressing in place) Peripheral Pulses: abnormal - Abdominal General gastrointestinal: soft, non-distended, normal bowel sounds - Integumentary Integumentary: Present: erythema. Absent: jaundice, rash - Psychiatric Psychiatric: other alert and oriented x2 - Constitutional Vitals: Temp Pulse Resp BP Pulse Ox 98.1 F 83 18 124/78 97 05/02/18 05:23 05/02/18 05:23 05/02/18 05:23 05/02/18 05:23 05/02/18 05:23 General appearance: Present: no acute distress Results - Labs CBC & Chem 7: 05/02/18 04:30 05/02/18 04:30 Labs: Laboratory Last Values WBC 8.0 K/mm3 (4.5-11.0) 05/02/18 04:30 RBC 2.73 M/mm3 (3.65-5.03) L 05/02/18 04:30 Hgb 8.9 gm/dl (10.1-14.3) L 05/02/18 04:30 Hct 27.3 % (30.3-42.9) L 05/02/18 04:30 MCV 100 fl (79-97) H 05/02/18 04:30 MCH 32 pg (28-32) 05/02/18 04:30 MCHC 33 % (30-34) 05/02/18 04:30 RDW 15.4 % (13.2-15.2) H 05/02/18 04:30 Plt Count 240 K/mm3 (140-440) 05/02/18 04:30 Lymph % (Auto) 10.5 % (13.4-35.0) L 04/25/18 04:26 [place] % (Auto) 4.5 % (0.0-7.3) 04/25/18 04:26 Eos % (Auto) 1.2 % (0.0-4.3) 04/25/18 04:26 Baso % (Auto) 0.6 % (0.0-1.8) 04/25/18 04:26 Lymph # 1.1 K/mm3 (1.2-5.4) L 04/25/18 04:26 [place] # 0.5 K/mm3 (0.0-0.8) 04/25/18 04:26 Eos # 0.1 K/mm3 (0.0-0.4) 04/25/18 04:26 Baso # 0.1 K/mm3 (0.0-0.1) 04/25/18 04:26 Seg Neutrophils % 83.2 % (40.0-70.0) H 04/25/18 04:26 Seg Neutrophils # 8.5 K/mm3 (1.8-7.7) H 04/25/18 04:26 PT 14.3 Sec. (12.2-14.9) 04/13/18 13:41 INR 1.07 (0.87-1.13) 04/13/18 13:41 APTT 28.9 Sec. (24.2-36.6) 04/13/18 13:41 Thrombin Time 17.3 Sec. (15.1-19.6) 04/13/18 13:41 POC ABG pH 7.308 (7.35-7.45) L 04/17/18 20:40 POC ABG pCO2 31.3 (35-45) L 04/17/18 20:40 POC ABG pO2 61 (80-105) L 04/17/18 20:40 POC ABG HCO3 15.7 04/17/18 20:40 POC ABG Total CO2 17 04/17/18 20:40 POC ABG O2 Sat 89 04/17/18 20:40 POC ABG Base Excess -11 04/17/18 20:40 FiO2 30 % 04/17/18 20:40 Sodium 137 mmol/L (137-145) 05/02/18 04:30 Potassium 4.9 mmol/L (3.6-5.0) 05/02/18 04:30 Chloride 98.1 mmol/L (98-107) 05/02/18 04:30 Carbon Dioxide 23 mmol/L (22-30) 05/02/18 04:30 Anion Gap 21 mmol/L 05/02/18 04:30 BUN 41 mg/dL (7-17) H 05/02/18 04:30 Creatinine 3.6 mg/dL (0.7-1.2) H 05/02/18 04:30 Estimated GFR 14 ml/min 05/02/18 04:30 BUN/Creatinine Ratio 11 % 05/02/18 04:30 Glucose 95 mg/dL (65-100) 05/02/18 04:30 POC Glucose 173 (70-105) H 05/01/18 21:28 Lactic Acid 1.10 mmol/L (0.7-2.0) 04/13/18 16:23 Calcium 7.1 mg/dL (8.4-10.2) L 05/02/18 04:30 Phosphorus 3.10 mg/dL (2.5-4.5) 04/22/18 10:20 Magnesium 1.70 mg/dL (1.7-2.3) 04/26/18 15:25 Total Bilirubin 0.60 mg/dL (0.1-1.2) 04/14/18 08:01 Direct Bilirubin 0.2 mg/dL (0-0.2) 04/13/18 13:59 Indirect Bilirubin 0.3 mg/dL 04/13/18 13:59 AST 14 units/L (5-40) 04/14/18 08:01 ALT 7 units/L (7-56) 04/14/18 08:01 Alkaline Phosphatase 106 units/L (35-129) 04/14/18 08:01 Ammonia 47.0 umol/L (25-60) 04/16/18 11:17 Total Creatine Kinase 92 units/L (30-135) 04/13/18 13:59 CK-MB (CK-2) 3.7 ng/mL (0.0-4.0) 04/13/18 13:59 CK-MB (CK-2) Rel Index 4.0 (0-4) 04/13/18 13:59 Troponin T 0.010 ng/mL (0.00-0.029) 04/13/18 13:59 NT-Pro-B Natriuret Pep 97727 pg/mL (0-450) H 04/13/18 13:59 Serum Total Protein 5.6 g/dL (6.1-8.1) L 04/15/18 03:17 Total Protein 6.0 g/dL (6.3-8.2) L 04/14/18 08:01 Albumin 2.4 g/dL (3.8-4.8) L 04/15/18 03:17 Albumin/Globulin Ratio 0.8 % 04/14/18 08:01 Lwuez-2-Sdkjblwfv 0.4 g/dL (0.2-0.3) H 04/15/18 03:17 Hyimm-6-Qndfliosx 0.9 g/dL (0.5-0.9) 04/15/18 03:17 Beta Globulins 0.4 g/dL (0.2-0.5) 04/15/18 03:17 Gamma Globulins 1.2 g/dL (0.8-1.7) 04/15/18 03:17 Abnorm Protein Band 1 see below 04/15/18 03:17 PEP Interpretation see below H 04/15/18 03:17 Lipase 44 units/L (13-60) 04/13/18 13:59 Urine Color Diane (Yellow) 04/13/18 14:26 Urine Turbidity Cloudy (Clear) 04/13/18 14:26 Urine pH 5.0 (5.0-7.0) 04/13/18 14:26 Ur Specific [place] 1.017 (1.003-1.030) 04/13/18 14:26 Urine Protein >500 mg/dL (Negative) 04/13/18 14:26 Urine Glucose (UA) >=500 mg/dL (Negative) 04/13/18 14:26 Urine Ketones Neg mg/dL (Negative) 04/13/18 14:26 Urine Blood Neg (Negative) 04/13/18 14:26 Urine Nitrite Neg (Negative) 04/13/18 14:26 Urine Bilirubin Neg (Negative) 04/13/18 14:26 Urine Urobilinogen < 2.0 mg/dL (<2.0) 04/13/18 14:26 Ur Leukocyte Esterase Neg (Negative) 04/13/18 14:26 Urine WBC (Auto) 22.0 /HPF (0.0-6.0) H 04/13/18 14:26 Urine RBC (Auto) 17.0 /HPF (0.0-6.0) 04/13/18 14:26 U Epithel Cells (Auto) 3.0 /HPF (0-13.0) 04/13/18 14:26 Urine Bacteria (Auto) 4+ /HPF (Negative) 04/13/18 14:26 Urine Mucus Few /HPF 04/13/18 14:26 Urine Yeast (Budding) 3+ /HPF 04/13/18 14:26 Urine Eosinophils 7% (None Seen) 04/14/18 11:23 Urine Creatinine 85.5 mg/dL (0.1-20.0) H 04/14/18 11:23 Protein/Creatinin Ratio 1.78 04/14/18 11:23 Urine Sodium 82 mmol/L 04/14/18 11:23 Fraction Sodium Excret 2.3 04/14/18 11:23 Urine Total Protein 152 mg/dL (5-11.8) H 04/14/18 11:23 Urine Opiates Screen Presumptive negative 04/13/18 14:26 Urine Methadone Screen Presumptive negative 04/13/18 14:26 Ur Barbiturates Screen Presumptive negative 04/13/18 14:26 Levetiracetam 37.6 mcg/mL 04/13/18 19:19 Ur Phencyclidine Scrn Presumptive negative 04/13/18 14:26 Ur Amphetamines Screen Presumptive negative 04/13/18 14:26 U Benzodiazepines Scrn Presumptive negative 04/13/18 14:26 Urine Cocaine Screen Presumptive negative 04/13/18 14:26 U Marijuana (THC) Screen Presumptive negative 04/13/18 14:26 Drugs of Abuse Note Disclamer 04/13/18 14:26 Proteinase 3 (PR3) Ab <1.0 AI (<1.0) 04/14/18 11:56 Myeloperoxidase Ab <1.0 AI (<1.0) 04/14/18 11:56 Double Strand DNA Ab <1 IU/mL (<=4) 04/14/18 11:56 Complement C3 155 mg/dL (83-193) 04/14/18 11:56 Complement C4 28 mg/dL (15-57) 04/14/18 11:56 Hepatitis A IgM Ab Non-reactive (NonReactive) 04/14/18 11:56 Hep Bs Antigen Non-reactive (Negative) 04/14/18 11:56 Hep B Core IgM Ab Non-reactive (NonReactive) 04/14/18 11:56 Hepatitis C Antibody Non-reactive (NonReactive) 04/14/18 11:56 Nutrition/Malnutrition Assess - Dietary Evaluation Nutrition/Malnutrition Findings: Nutrition Notes Start: 04/14/18 09:47 Freq: Status: Active Protocol: Document 04/29/18 16:48 OL (Rec: 04/29/18 16:51 OL [id number]) Nutrition Notes Initial or Follow up Reassessment Current Diagnosis CKD(stage I-IV) COPD Diabetes Hypertension Heart Failure Respiratory Failure Stroke Other Pertinent Diagnosis Hx of seizures, Wounds on R and L LE, fungal rash on groin and ischial fold Current Diet Renal Labs/Tests Reviewed Pertinent Medications Reviewed Height 5 ft 8 in Weight 82.2 kg [place] Body Weight (lbs) 140.0 BMI 27.5 Subjective/Other Information Pt. reports consuming 100% of meals. Pt. denies N/V/C/D. Pt. discharging home today and is eager to leave hospital. Pt. on HD. Burn Absent Trauma Absent #2 Nutrition Diagnosis Increased nutrient needs ( specify in comment below) Diagnosis Progress(for reassessment Continues documentation) #1 Nutrition Diagnosis Inadequate oral intake As Evidenced by Signs and Symptoms Pt. consuming 100% of meals Diagnosis Progress(for reassessment Improved documentation) Is patient on ventilator? No Is Patient Ambulatory and/or Out of Bed No [facility] 9836.249 Calculation Used for Recommendations [facility] Additional Notes protein (1.2-1.4g/kg): 99-115 fluid: 1mL/kcal or per MD Nutrition Intervention Change Diet Order: Continue Renal Goal #1 Continue to meet at least 75% of calorie and protein needs via PO intake Anticipated Discharge Needs: Renal Follow-Up By: 05/03/18 Additional Comments f/u: stable intake
[2018-05-02] MEDS: HumuLIN R SUB-Q SCH ×4 (08:25→21:51)
[2018-05-02] MEDS: DUONEB *Not for PRN Use IH SCH ×2 (09:17→14:17)
--- NOTE | 2018-05-02 09:20 | Progress Note ---
Assessment and Plan Impression * Acute kidney injury on stage IV chronic kidney disease * Acute hypoxic respiratory failure secondary to seizure * Aspiration PNA * Chronic systolic heart failure * Atrial fibrillation * Anemia Plan: * CM notes reviewed - does not appear that insurance will pay for outpatient dialysis due to BLAS diagnosis * 24h urine CrCl has been ordered, but collection has been problematic (pt voiding in commode per RN); will place arnett catheter to complete; If acceptable, will arrange for permcath removal and follow closely in the office * Hold HD for now * Avoid potential nephrotoxins * Dose medications for renal function * Epogen TIW prn * AM labs ordered Subjective Date of service: 05/02/18 Principal diagnosis: Acute respiratory failure, secondary to seizure episode. C hronic kidney di Interval history: Patient has no complaint today Objective - Vital Signs Vital signs: Vital Signs - 12hr 05/01/18 05/01/18 05/01/18 21:54 22:00 23:22 Temperature 98.2 F Pulse Rate 89 89 Pulse Rate [ Bilateral] Respiratory 16 16 Rate Respiratory Rate [Bilateral ] Blood Pressure 113/69 122/74 O2 Sat by Pulse 96 Oximetry 05/02/18 05/02/18 05:23 09:17 Temperature 98.1 F Pulse Rate 83 Pulse Rate [ 82 Bilateral] Respiratory 18 Rate Respiratory 18 Rate [Bilateral ] Blood Pressure 124/78 O2 Sat by Pulse 97 Oximetry - General Appearance General appearance: well-developed, well-nourished EENT: ATNC Respiratory: Present: Clear to Ascultation Cardiology: regular, S1S2 Gastrointestinal: normal, no tenderness, no distended Integumentary: warm and dry Neurologic: no focal deficit Musculoskeletal: other (no edema) Psychiatric: cooperative - Lab 05/02/18 04:30 05/02/18 04:30 Most recent lab results Calcium 7.1 mg/dL (8.4-10.2) L 05/02/18 04:30 Phosphorus 3.10 mg/dL (2.5-4.5) 04/22/18 10:20 Magnesium 1.70 mg/dL (1.7-2.3) 04/26/18 15:25 Urine Creatinine 85.5 mg/dL (0.1-20.0) H 04/14/18 11:23 Urine Sodium 82 mmol/L 04/14/18 11:23 Urine Total Protein 152 mg/dL (5-11.8) H 04/14/18 11:23 Medications & Allergies - Medications Allergies/Adverse Reactions: Allergies No Known Allergies Allergy (Verified 04/17/18 10:03) Home Medications: Home Medications Medication Instructions Recorded Confirmed Last Taken Type Aspirin EC [Aspirin Enteric Coated 81 mg PO QDAY #30 tablet 07/22/17 04/23/18 02/17/18 Rx TAB] 81mg Labetalol [Normodyne TAB] 200 mg PO BID #60 tablet 12/04/17 Unknown Rx amLODIPine [Norvasc] 10 mg PO QDAY #30 tablet 12/04/17 04/23/18 Unknown Rx Apixaban [Eliquis] 2.5 mg PO BID 60 Days tablet 02/22/18 04/23/18 Unknown Rx AtorvaSTATin [Lipitor] 20 mg PO QHS #30 tablet 02/22/18 04/23/18 Unknown Rx Insulin Glargine,Hum.rec.anlog 20 unit SQ QHS #30 insuln.pen 02/22/18 04/23/18 Unknown Rx [Lantus Solostar] Lispro Insulin [Humalog] 0 unit SUB-Q ACHS units 02/22/18 04/23/18 Unknown Rx levETIRAcetam [Keppra TAB] 500 mg PO BID #90 tablet 02/22/18 04/23/18 Unknown Rx hydrALAZINE [Apresoline TAB] 100 mg PO TID 04/23/18 04/23/18 Unknown History Prednisone [predniSONE 5 mg (6-Day 5 mg PO .TAPER #1 tab.ds.pk 04/29/18 Unknown Rx Pack, 21 Tabs)] Active Medications: Generic Name Dose Route Start Last Admin Trade Name Freq PRN Reason Stop Dose Admin Albuterol 2.5 mg 04/13/18 14:57 Proventil IH Q3H PRN Shortness Of Breath Albuterol/Ipratropium 1 ampul 04/23/18 20:00 05/02/18 09:17 Duoneb *Not For Prn Use* IH 1 ampul TIDRT CECILE Administration Apixaban 2.5 mg 04/14/18 18:00 05/01/18 21:54 Eliquis FEEDTUBE 2.5 mg Q12HR CECILE Administration Protocol Atorvastatin Calcium 20 mg 04/23/18 22:00 05/01/18 21:54 Lipitor PO 20 mg QHS CECILE Administration Benzocaine/Menthol 1 each 04/23/18 08:51 Cepacol X Strength MM Q1HR PRN Sore Throat Dextrose 50 ml 04/14/18 19:05 04/18/18 00:15 D50w (25gm) Syringe IV 50 ml PRN PRN Administration Hypoglycemia Epoetin Kofi 10,000 unit 04/29/18 06:00 04/29/18 12:50 Procrit IV 10,000 unit MIRI PRN Administration hemodialysis Famotidine 20 mg 04/15/18 10:00 05/01/18 11:21 Pepcid PO 20 mg DAILY CECILE Administration Hydralazine HCl 10 mg 04/14/18 16:15 04/19/18 18:45 Apresoline IV 10 mg Q4HR PRN Administration SBP >150 or DBP >90 Hydrophilic Ointment 1 applic 04/13/18 13:43 Vaseline Lip Therapy TP Q2HR PRN Dry Lips Insulin Glargine 10 units 05/01/18 22:00 05/01/18 21:53 Lantus SUB-Q 10 units QHS CECILE Administration Insulin Human Regular 0 units 04/26/18 07:30 05/01/18 21:52 Humulin R SUB-Q 1 units ACHS CECILE Administration Protocol Labetalol HCl 200 mg 04/28/18 10:00 05/01/18 21:54 Normodyne PO 200 mg BID CECILE Administration Levetiracetam 500 mg 04/22/18 22:00 05/01/18 21:53 Keppra PO 500 mg BID CECILE Administration Multi-Ingred Cream/Lotion/Oil/Oint 1 applic 04/13/18 13:43 Artificial Tears Ophth Oint OU Q4HR PRN Dry Eye(s) Prednisone 20 mg 04/28/18 10:00 05/01/18 11:20 Deltasone PO 20 mg QDAY CECILE Administration Sodium Chloride 10 ml 04/13/18 22:00 05/01/18 21:57 Sodium Chloride Flush Syringe 10 Ml IV 10 ml BID CECILE Administration Sodium Chloride 10 ml 04/13/18 14:57 04/17/18 05:42 Sodium Chloride Flush Syringe 10 Ml IV 10 ml PRN PRN Administration LINE FLUSH
[2018-05-02] MEDS: NORMODYNE PO SCH ×2 (12:31→21:49)
[2018-05-02] MEDS: PEPCID PO SCH (12:32)
[2018-05-02] MEDS: ELIQUIS FEEDTUBE SCH ×2 (12:32→21:49)
[2018-05-02] MEDS: SODIUM CHLORIDE FLUSH SYRINGE 10 ML IV SCH ×2 (12:33→21:51)
[2018-05-02] MEDS: KEPPRA PO SCH ×2 (12:33→21:49)
[2018-05-02] MEDS: DELTASONE PO SCH (12:33)
[2018-05-02] MEDS: LANTUS SUB-Q SCH (21:50)
[2018-05-03 05:46] LABS: Hematocrit 29.2 % (30.3-42.9); Hemoglobin 9.3 gm/dl (10.1-14.3); Mean Corpuscular HGB Conc 32 % (30-34); Mean Corpuscular Volume 99 fl (79-97); Platelet Count 235 K/mm3 (140-440); Red Blood Count 2.94 M/mm3 (3.65-5.03); Red Cell Distribution Width 16.2 % (13.2-15.2)
[2018-05-03] MEDS: HumuLIN R SUB-Q SCH ×4 (08:00→22:52)
[2018-05-03] MEDS: DUONEB *Not for PRN Use IH SCH ×4 (08:48→20:29)
--- NOTE | 2018-05-03 09:53 | Progress Note ---
Assessment and Plan impression * BLAS on Chronic kidney disease stage 4 * Respiratory failure secondary to pulmonary infiltrates * Asp PNA * Hypertension * Seizure disorder * Pulmonary hypertension * COPD * Metabolic Acidosis * History of CVA Recommendations * Patient baseline serum creatinine appears to be in the 3-4 range * no urgent indication for dialysis at this time, hold hd * follow up 24hr crcl * Continue loop diuretics as needed * added sodium bicarbonate * Avoid nephrotoxins * Monitor fluid status and electrolytes closely * Renal ultrasound showing bilateral nonobstructing stones Subjective Date of service: 05/03/18 Principal diagnosis: Acute respiratory failure, secondary to seizure episode. Chronic kidney di Interval history: resting well in bed today Objective - Exam Narrative Exam: General appearance: well-developed, well-nourished, appears stated age, intubated EENT: PERRL, mucous membranes moist Neck: no JVD, no thyromegaly Respiratory: Present: Clear to Ascultation Cardiology: regular, normal heart rate, S1S2, no murmurs Gastrointestinal: normal, normoactive bowel sounds Integumentary: other (no edema) - Vital Signs Vital signs: Vital Signs - 12hr 05/02/18 05/02/18 05/03/18 22:00 22:15 05:02 Temperature 97.8 F 97.6 F Pulse Rate 79 77 Respiratory 18 20 18 Rate Respiratory 17 Rate [Head] Blood Pressure 131/91 132/80 O2 Sat by Pulse 96 97 Oximetry - Lab 05/03/18 04:53 05/03/18 04:53 Most recent lab results Calcium 7.0 mg/dL (8.4-10.2) L 05/03/18 04:53 Phosphorus 3.10 mg/dL (2.5-4.5) 04/22/18 10:20 Magnesium 1.70 mg/dL (1.7-2.3) 04/26/18 15:25 Urine Creatinine 85.5 mg/dL (0.1-20.0) H 04/14/18 11:23 Urine Sodium 82 mmol/L 04/14/18 11:23 Urine Total Protein 152 mg/dL (5-11.8) H 04/14/18 11:23 Medications & Allergies - Medications Allergies/Adverse Reactions: Allergies No Known Allergies Allergy (Verified 04/17/18 10:03) Home Medications: Home Medications Medication Instructions Recorded Confirmed Last Taken Type Aspirin EC [Aspirin Enteric Coated 81 mg PO QDAY #30 tablet 07/22/17 04/23/18 02/17/18 Rx TAB] 81mg Labetalol [Normodyne TAB] 200 mg PO BID #60 tablet 12/04/17 Unknown Rx amLODIPine [Norvasc] 10 mg PO QDAY #30 tablet 12/04/17 04/23/18 Unknown Rx Apixaban [Eliquis] 2.5 mg PO BID 60 Days tablet 02/22/18 04/23/18 Unknown Rx AtorvaSTATin [Lipitor] 20 mg PO QHS #30 tablet 02/22/18 04/23/18 Unknown Rx Insulin Glargine,Hum.rec.anlog 20 unit SQ QHS #30 insuln.pen 02/22/18 04/23/18 Unknown Rx [Lantus Solostar] Lispro Insulin [Humalog] 0 unit SUB-Q ACHS units 02/22/18 04/23/18 Unknown Rx levETIRAcetam [Keppra TAB] 500 mg PO BID #90 tablet 02/22/18 04/23/18 Unknown Rx hydrALAZINE [Apresoline TAB] 100 mg PO TID 04/23/18 04/23/18 Unknown History Prednisone [predniSONE 5 mg (6-Day 5 mg PO .TAPER #1 tab.ds.pk 04/29/18 Unknown Rx Pack, 21 Tabs)] Active Medications: Generic Name Dose Route Start Last Admin Trade Name Freq PRN Reason Stop Dose Admin Albuterol 2.5 mg 04/13/18 14:57 Proventil IH Q3H PRN Shortness Of Breath Albuterol/Ipratropium 1 ampul 04/23/18 20:00 05/03/18 09:04 Duoneb *Not For Prn Use* IH Not Given TIDRT CECILE Apixaban 2.5 mg 04/14/18 18:00 05/02/18 21:49 Eliquis FEEDTUBE 2.5 mg Q12HR CECILE Administration Protocol Atorvastatin Calcium 20 mg 04/23/18 22:00 05/02/18 21:49 Lipitor PO 20 mg QHS CECILE Administration Benzocaine/Menthol 1 each 04/23/18 08:51 Cepacol X Strength MM Q1HR PRN Sore Throat Dextrose 50 ml 04/14/18 19:05 04/18/18 00:15 D50w (25gm) Syringe IV 50 ml PRN PRN Administration Hypoglycemia Epoetin Kofi 10,000 unit 04/29/18 06:00 04/29/18 12:50 Procrit IV 10,000 unit MIRI PRN Administration hemodialysis Famotidine 20 mg 04/15/18 10:00 05/02/18 12:32 Pepcid PO 20 mg DAILY CECILE Administration Hydralazine HCl 10 mg 04/14/18 16:15 04/19/18 18:45 Apresoline IV 10 mg Q4HR PRN Administration SBP >150 or DBP >90 Hydrophilic Ointment 1 applic 04/13/18 13:43 Vaseline Lip Therapy TP Q2HR PRN Dry Lips Insulin Glargine 10 units 05/01/18 22:00 05/02/18 21:50 Lantus SUB-Q 10 units QHS CECILE Administration Insulin Human Regular 0 units 04/26/18 07:30 05/02/18 21:51 Humulin R SUB-Q Not Given ACHS [facility] Protocol Labetalol HCl 200 mg 04/28/18 10:00 05/02/18 21:49 Normodyne PO 200 mg BID CECILE Administration Levetiracetam 500 mg 04/22/18 22:00 05/02/18 21:49 Keppra PO 500 mg BID CECILE Administration Multi-Ingred Cream/Lotion/Oil/Oint 1 applic 04/13/18 13:43 Artificial Tears Ophth Oint OU Q4HR PRN Dry Eye(s) Prednisone 20 mg 04/28/18 10:00 05/02/18 12:33 Deltasone PO 20 mg QDAY CECILE Administration Sodium Chloride 10 ml 04/13/18 22:00 05/02/18 21:51 Sodium Chloride Flush Syringe 10 Ml IV 10 ml BID CECILE Administration Sodium Chloride 10 ml 04/13/18 14:57 04/17/18 05:42 Sodium Chloride Flush Syringe 10 Ml IV 10 ml PRN PRN Administration LINE FLUSH
[2018-05-03] MEDS: PEPCID PO SCH (11:32)
[2018-05-03] MEDS: NORMODYNE PO SCH ×2 (11:32→22:53)
[2018-05-03] MEDS: DELTASONE PO SCH (11:32)
[2018-05-03] MEDS: KEPPRA PO SCH ×2 (11:32→22:53)
[2018-05-03] MEDS: SODIUM CHLORIDE FLUSH SYRINGE 10 ML IV SCH ×2 (11:33→22:54)
[2018-05-03] MEDS: ELIQUIS FEEDTUBE SCH ×2 (11:39→22:54)
[2018-05-03 13:34] LABS: Creatinine,Urine 96.4 mg/dL (0.1-20.0)
--- NOTE | 2018-05-03 13:53 | Progress Note ---
Assessment and Plan Assessment and plan: - Patient Problems (1) ARF (acute renal failure) with tubular necrosis Current Visit: Yes Status: Acute Plan to address problem: She will receive hemodialysis 2 now be urine of 19 and creatinine of 1.9. Stable stage IV chronic kidney disease. Cath for hemodialysis has been placed. Await outpatient appointment for hemodialysis. Otherwise hemodynamically stable. Further renal work up ongoing. Per renal * Will start 24h urine CrCl - if acceptable, will arrange for permcath removal and follow closely in the office. awaiting finaly result- Win[place] placed. Awaiting final calculation * Hold HD for now * Avoid potential nephrotoxins (2) Acute and chronic respiratory failure ([id number]) Current Visit: Yes Status: Acute S/P EXTUBATION (3) CHF (congestive heart failure) Current Visit: Yes Status: Acute Qualifiers: Heart failure type: systolic Heart failure chronicity: acute on chronic Qualified Code(s): I50.23 - Acute on chronic systolic (congestive) heart failure Plan to address problem: Patient with ejection fraction of 20%. Currently on beta nativdiad Lopressor. Not a candidate at this time for addition of TEOFILO inhibitor. Patient also does not appear to need diuretics at this time. (4) Diabetes type 2, Uncontrolled Current Visit: Yes Status: Acute Qualifiers: Diabetes mellitus termite control servicer insulin use: with termite control servicer use Diabetes mellitus complication status: with kidney complications Diabetes mellitus complication detail: with chronic kidney disease Chronic kidney disease stage: stage 4 (severe) Qualified Code(s): E11.22 - Type 2 diabetes mellitus with diabetic chronic kidney disease; N18.4 - Chronic kidney disease, stage 4 (severe); Z79.4 - alf (current) use of insulin Plan to address problem: Present patient consistently suboptimal Accu-Cheks. We'll add long-acting Lantus -Adjust to home dose of 20units. Accu-Cheks [id number] and 3 O2 ?if uncontrolled due to steroids. 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 (7) Acute on chronic renal failure Current Visit: No Status: Acute Qualifiers: Chronic kidney disease stage: stage 4 (severe) (8) CVA (cerebral infarction) Current Visit: No Status: Acute Qualifiers: Cerebral infarction mechanism: thrombosis Laterality of affected vessel: right DVT/GI prophy Awaiting HD set up for discharge, History Interval history: Patient seen and examined today, resting comfortably, no new complaints. 24 hr urine work up ongoing. should end shortly. Hospitalist Physical - Physical exam Narrative exam: General appearance: Present: no acute distress - EENT Eyes: Present: PERRL ENT: hearing decreased, poor dentition - Neck Neck: Present: supple, normal ROM - Respiratory Respiratory: bilateral: CTA - Cardiovascular Rhythm: regular - Extremities Extremities: No edema Extremity abnormal: other (extensive wounds over her lower extremities. dressing in place) Peripheral Pulses: abnormal - Abdominal General gastrointestinal: soft, non-distended, normal bowel sounds - Integumentary Integumentary: Present: erythema. Absent: jaundice, rash - Psychiatric Psychiatric: other alert and oriented x2 - Constitutional Vitals: Temp Pulse Resp BP Pulse Ox 98.0 F 87 18 130/84 98 05/03/18 11:46 05/03/18 13:46 05/03/18 13:46 05/03/18 11:46 05/03/18 11:46 General appearance: Present: no acute distress Results - Labs CBC & Chem 7: 05/03/18 04:53 05/03/18 04:53 Labs: Laboratory Last Values WBC 7.0 K/mm3 (4.5-11.0) 05/03/18 04:53 RBC 2.94 M/mm3 (3.65-5.03) L 05/03/18 04:53 Hgb 9.3 gm/dl (10.1-14.3) L 05/03/18 04:53 Hct 29.2 % (30.3-42.9) L 05/03/18 04:53 MCV 99 fl (79-97) H 05/03/18 04:53 MCH 32 pg (28-32) 05/03/18 04:53 MCHC 32 % (30-34) 05/03/18 04:53 RDW 16.2 % (13.2-15.2) H 05/03/18 04:53 Plt Count 235 K/mm3 (140-440) 05/03/18 04:53 Lymph % (Auto) 10.5 % (13.4-35.0) L 04/25/18 04:26 [place] % (Auto) 4.5 % (0.0-7.3) 04/25/18 04:26 Eos % (Auto) 1.2 % (0.0-4.3) 04/25/18 04:26 Baso % (Auto) 0.6 % (0.0-1.8) 04/25/18 04:26 Lymph # 1.1 K/mm3 (1.2-5.4) L 04/25/18 04:26 [place] # 0.5 K/mm3 (0.0-0.8) 04/25/18 04:26 Eos # 0.1 K/mm3 (0.0-0.4) 04/25/18 04:26 Baso # 0.1 K/mm3 (0.0-0.1) 04/25/18 04:26 Seg Neutrophils % 83.2 % (40.0-70.0) H 04/25/18 04:26 Seg Neutrophils # 8.5 K/mm3 (1.8-7.7) H 04/25/18 04:26 PT 14.3 Sec. (12.2-14.9) 04/13/18 13:41 INR 1.07 (0.87-1.13) 04/13/18 13:41 APTT 28.9 Sec. (24.2-36.6) 04/13/18 13:41 Thrombin Time 17.3 Sec. (15.1-19.6) 04/13/18 13:41 POC ABG pH 7.308 (7.35-7.45) L 04/17/18 20:40 POC ABG pCO2 31.3 (35-45) L 04/17/18 20:40 POC ABG pO2 61 (80-105) L 04/17/18 20:40 POC ABG HCO3 15.7 04/17/18 20:40 POC ABG Total CO2 17 04/17/18 20:40 POC ABG O2 Sat 89 04/17/18 20:40 POC ABG Base Excess -11 04/17/18 20:40 FiO2 30 % 04/17/18 20:40 Sodium 138 mmol/L (137-145) 05/03/18 04:53 Potassium 4.6 mmol/L (3.6-5.0) 05/03/18 04:53 Chloride 99.3 mmol/L (98-107) 05/03/18 04:53 Carbon Dioxide 23 mmol/L (22-30) 05/03/18 04:53 Anion Gap 20 mmol/L 05/03/18 04:53 BUN 50 mg/dL (7-17) H 05/03/18 04:53 Creatinine 4.1 mg/dL (0.7-1.2) H 05/03/18 04:53 Estimated GFR 12 ml/min 05/03/18 04:53 BUN/Creatinine Ratio 12 % 05/03/18 04:53 Glucose 104 mg/dL (65-100) H 05/03/18 04:53 POC Glucose 96 (70-105) 05/03/18 11:51 Lactic Acid 1.10 mmol/L (0.7-2.0) 04/13/18 16:23 Calcium 7.0 mg/dL (8.4-10.2) L 05/03/18 04:53 Phosphorus 3.10 mg/dL (2.5-4.5) 04/22/18 10:20 Magnesium 1.70 mg/dL (1.7-2.3) 04/26/18 15:25 Total Bilirubin 0.60 mg/dL (0.1-1.2) 04/14/18 08:01 Direct Bilirubin 0.2 mg/dL (0-0.2) 04/13/18 13:59 Indirect Bilirubin 0.3 mg/dL 04/13/18 13:59 AST 14 units/L (5-40) 04/14/18 08:01 ALT 7 units/L (7-56) 04/14/18 08:01 Alkaline Phosphatase 106 units/L (35-129) 04/14/18 08:01 Ammonia 47.0 umol/L (25-60) 04/16/18 11:17 Total Creatine Kinase 92 units/L (30-135) 04/13/18 13:59 CK-MB (CK-2) 3.7 ng/mL (0.0-4.0) 04/13/18 13:59 CK-MB (CK-2) Rel Index 4.0 (0-4) 04/13/18 13:59 Troponin T 0.010 ng/mL (0.00-0.029) 04/13/18 13:59 NT-Pro-B Natriuret Pep 95378 pg/mL (0-450) H 04/13/18 13:59 Serum Total Protein 5.6 g/dL (6.1-8.1) L 04/15/18 03:17 Total Protein 6.0 g/dL (6.3-8.2) L 04/14/18 08:01 Albumin 2.4 g/dL (3.8-4.8) L 04/15/18 03:17 Albumin/Globulin Ratio 0.8 % 04/14/18 08:01 Jxpuj-4-Lyalauaoa 0.4 g/dL (0.2-0.3) H 04/15/18 03:17 Qbxpm-1-Namiunpkz 0.9 g/dL (0.5-0.9) 04/15/18 03:17 Beta Globulins 0.4 g/dL (0.2-0.5) 04/15/18 03:17 Gamma Globulins 1.2 g/dL (0.8-1.7) 04/15/18 03:17 Abnorm Protein Band 1 see below 04/15/18 03:17 PEP Interpretation see below H 04/15/18 03:17 Lipase 44 units/L (13-60) 04/13/18 13:59 Urine Color Diane (Yellow) 04/13/18 14:26 Urine Turbidity Cloudy (Clear) 04/13/18 14:26 Urine pH 5.0 (5.0-7.0) 04/13/18 14:26 Ur Specific [place] 1.017 (1.003-1.030) 04/13/18 14:26 Urine Protein >500 mg/dL (Negative) 04/13/18 14:26 Urine Glucose (UA) >=500 mg/dL (Negative) 04/13/18 14:26 Urine Ketones Neg mg/dL (Negative) 04/13/18 14:26 Urine Blood Neg (Negative) 04/13/18 14:26 Urine Nitrite Neg (Negative) 04/13/18 14:26 Urine Bilirubin Neg (Negative) 04/13/18 14:26 Urine Urobilinogen < 2.0 mg/dL (<2.0) 04/13/18 14:26 Ur Leukocyte Esterase Neg (Negative) 04/13/18 14:26 Urine WBC (Auto) 22.0 /HPF (0.0-6.0) H 04/13/18 14:26 Urine RBC (Auto) 17.0 /HPF (0.0-6.0) 04/13/18 14:26 U Epithel Cells (Auto) 3.0 /HPF (0-13.0) 04/13/18 14:26 Urine Bacteria (Auto) 4+ /HPF (Negative) 04/13/18 14:26 Urine Mucus Few /HPF 04/13/18 14:26 Urine Yeast (Budding) 3+ /HPF 04/13/18 14:26 Urine Eosinophils 7% (None Seen) 04/14/18 11:23 Urine Total Volume 800 ml 04/30/18 10:10 Urine Creatinine 96.4 mg/dL (0.1-20.0) H 04/30/18 10:10 Protein/Creatinin Ratio 1.78 04/14/18 11:23 Urine Sodium 82 mmol/L 04/14/18 11:23 Fraction Sodium Excret 2.3 04/14/18 11:23 Urine Total Protein 152 mg/dL (5-11.8) H 04/14/18 11:23 Urine Opiates Screen Presumptive negative 04/13/18 14:26 Urine Methadone Screen Presumptive negative 04/13/18 14:26 Ur Barbiturates Screen Presumptive negative 04/13/18 14:26 Levetiracetam 37.6 mcg/mL 04/13/18 19:19 Ur Phencyclidine Scrn Presumptive negative 04/13/18 14:26 Ur Amphetamines Screen Presumptive negative 04/13/18 14:26 U Benzodiazepines Scrn Presumptive negative 04/13/18 14:26 Urine Cocaine Screen Presumptive negative 04/13/18 14:26 U Marijuana (THC) Screen Presumptive negative 04/13/18 14:26 Drugs of Abuse Note Disclamer 04/13/18 14:26 Proteinase 3 (PR3) Ab <1.0 AI (<1.0) 04/14/18 11:56 Myeloperoxidase Ab <1.0 AI (<1.0) 04/14/18 11:56 Double Strand DNA Ab <1 IU/mL (<=4) 04/14/18 11:56 Complement C3 155 mg/dL (83-193) 04/14/18 11:56 Complement C4 28 mg/dL (15-57) 04/14/18 11:56 Hepatitis A IgM Ab Non-reactive (NonReactive) 04/14/18 11:56 Hep Bs Antigen Non-reactive (Negative) 04/14/18 11:56 Hep B Core IgM Ab Non-reactive (NonReactive) 04/14/18 11:56 Hepatitis C Antibody Non-reactive (NonReactive) 04/14/18 11:56 Nutrition/Malnutrition Assess - Dietary Evaluation Nutrition/Malnutrition Findings: Nutrition Notes Start: 04/14/18 09:47 Freq: Status: Active Protocol: Document 04/29/18 16:48 OL (Rec: 04/29/18 16:51 OL [id number]) Nutrition Notes Initial or Follow up Reassessment Current Diagnosis CKD(stage I-IV) COPD Diabetes Hypertension Heart Failure Respiratory Failure Stroke Other Pertinent Diagnosis Hx of seizures, Wounds on R and L LE, fungal rash on groin and ischial fold Current Diet Renal Labs/Tests Reviewed Pertinent Medications Reviewed Height 5 ft 8 in Weight 82.2 kg [place] Body Weight (lbs) 140.0 BMI 27.5 Subjective/Other Information Pt. reports consuming 100% of meals. Pt. denies N/V/C/D. Pt. discharging home today and is eager to leave hospital. Pt. on HD. Burn Absent Trauma Absent #2 Nutrition Diagnosis Increased nutrient needs ( specify in comment below) Diagnosis Progress(for reassessment Continues documentation) #1 Nutrition Diagnosis Inadequate oral intake As Evidenced by Signs and Symptoms Pt. consuming 100% of meals Diagnosis Progress(for reassessment Improved documentation) Is patient on ventilator? No Is Patient Ambulatory and/or Out of Bed No REE-([facility]-confined to bed) 1489.633 Calculation Used for Recommendations [facility] Additional Notes protein (1.2-1.4g/kg): 99-115 fluid: 1mL/kcal or per MD Nutrition Intervention Change Diet Order: Continue Renal Goal #1 Continue to meet at least 75% of calorie and protein needs via PO intake Anticipated Discharge Needs: Renal Follow-Up By: 05/03/18 Additional Comments f/u: stable intake
[2018-05-03] MEDS: LANTUS SUB-Q SCH (22:54)
[2018-05-04 06:23] LABS: Calcium 6.8 mg/dL (8.4-10.2)
[2018-05-04] MEDS: HumuLIN R SUB-Q SCH ×4 (08:49→21:36)
[2018-05-04] MEDS: DUONEB *Not for PRN Use IH SCH ×3 (09:02→20:58)
[2018-05-04] MEDS: NORMODYNE PO SCH ×2 (10:04→21:28)
[2018-05-04] MEDS: ELIQUIS FEEDTUBE SCH ×2 (10:04→21:28)
[2018-05-04] MEDS: DELTASONE PO SCH (10:04)
[2018-05-04] MEDS: KEPPRA PO SCH ×2 (10:04→21:29)
[2018-05-04] MEDS: SODIUM CHLORIDE FLUSH SYRINGE 10 ML IV SCH ×2 (10:05→21:37)
[2018-05-04] MEDS: PEPCID PO SCH (10:08)
--- NOTE | 2018-05-04 10:33 | Progress Note ---
Assessment and Plan impression * ESRD * Respiratory failure secondary to pulmonary infiltrates * Asp PNA * Hypertension * Seizure disorder * Pulmonary hypertension * COPD * Metabolic Acidosis * History of CVA Recommendations * Patient baseline serum creatinine appears to be in the 3-4 range * cr continues to rise--crcl is 10ml/min with 800ml uop * will resume hd and monitor for recovery * Continue loop diuretics as needed * added sodium bicarbonate * Avoid nephrotoxins * Monitor fluid status and electrolytes closely * Renal ultrasound showing bilateral nonobstructing stones * will need outpatient hd unit placement Subjective Date of service: 05/04/18 Principal diagnosis: Acute respiratory failure, secondary to seizure episode. Chronic kidney di Interval history: resting well in bed today Objective - Exam Narrative Exam: General appearance: well-developed, well-nourished, appears stated age, intubated EENT: PERRL, mucous membranes moist Neck: no JVD, no thyromegaly Respiratory: Present: Clear to Ascultation Cardiology: regular, normal heart rate, S1S2, no murmurs Gastrointestinal: normal, normoactive bowel sounds Integumentary: other (no edema) - Vital Signs Vital signs: Vital Signs - 12hr 05/03/18 05/03/18 05/04/18 22:45 22:53 05:53 Temperature 98.1 F 97.5 F L Pulse Rate 88 88 74 Respiratory 18 24 Rate Blood Pressure 122/76 122/76 138/94 O2 Sat by Pulse 96 97 Oximetry - Lab 05/03/18 04:53 05/04/18 05:39 Most recent lab results Calcium 6.8 mg/dL (8.4-10.2) L 05/04/18 05:39 Phosphorus 3.10 mg/dL (2.5-4.5) 04/22/18 10:20 Magnesium 1.70 mg/dL (1.7-2.3) 04/26/18 15:25 Urine Creatinine 96.4 mg/dL (0.1-20.0) H 04/30/18 10:10 Urine Sodium 82 mmol/L 04/14/18 11:23 Urine Total Protein 152 mg/dL (5-11.8) H 04/14/18 11:23 Medications & Allergies - Medications Allergies/Adverse Reactions: Allergies No Known Allergies Allergy (Verified 04/17/18 10:03) Home Medications: Home Medications Medication Instructions Recorded Confirmed Last Taken Type Aspirin EC [Aspirin Enteric Coated 81 mg PO QDAY #30 tablet 07/22/17 04/23/18 1 04/19/17 Rx TAB] 81mg Labetalol [Normodyne TAB] 200 mg PO BID #60 tablet 12/04/17 05/04/18 Unknown Rx amLODIPine [Norvasc] 10 mg PO QDAY #30 tablet 12/04/17 04/23/18 Unknown Rx Apixaban [Eliquis] 2.5 mg PO BID 60 Days tablet 02/22/18 04/23/18 Unknown Rx AtorvaSTATin [Lipitor] 20 mg PO QHS #30 tablet 02/22/18 04/23/18 Unknown Rx Insulin Glargine,Hum.rec.anlog 20 unit SQ QHS #30 insuln.pen 02/22/18 04/23/18 Unknown Rx [Lantus Solostar] Lispro Insulin [Humalog] 0 unit SUB-Q ACHS units 02/22/18 04/23/18 Unknown Rx levETIRAcetam [Keppra TAB] 500 mg PO BID #90 tablet 02/22/18 04/23/18 Unknown Rx hydrALAZINE [Apresoline TAB] 100 mg PO TID 04/23/18 04/23/18 Unknown History Prednisone [predniSONE 5 mg (6-Day 5 mg PO .TAPER #1 tab.ds.pk 04/29/18 Unknown Rx Pack, 21 Tabs)] Active Medications: Generic Name Dose Route Start Last Admin Trade Name Freq PRN Reason Stop Dose Admin Albuterol 2.5 mg 04/13/18 14:57 Proventil IH Q3H PRN Shortness Of Breath Albuterol/Ipratropium 1 ampul 04/23/18 20:00 05/04/18 09:02 Duoneb *Not For Prn Use* IH Not Given TIDRT CECILE Apixaban 2.5 mg 04/14/18 18:00 05/04/18 10:04 Eliquis FEEDTUBE 2.5 mg Q12HR CECILE Administration Protocol Atorvastatin Calcium 20 mg 04/23/18 22:00 05/03/18 22:54 Lipitor PO 20 mg QHS CECILE Administration Benzocaine/Menthol 1 each 04/23/18 08:51 Cepacol X Strength MM Q1HR PRN Sore Throat Dextrose 50 ml 04/14/18 19:05 04/18/18 00:15 D50w (25gm) Syringe IV 50 ml PRN PRN Administration Hypoglycemia Epoetin Kofi 10,000 unit 04/29/18 06:00 04/29/18 12:50 Procrit IV 10,000 unit MIRI PRN Administration hemodialysis Famotidine 20 mg 04/15/18 10:00 05/04/18 10:08 Pepcid PO 20 mg DAILY CECILE Administration Hydralazine HCl 10 mg 04/14/18 16:15 04/19/18 18:45 Apresoline IV 10 mg Q4HR PRN Administration SBP >150 or DBP >90 Hydrophilic Ointment 1 applic 04/13/18 13:43 Vaseline Lip Therapy TP Q2HR PRN Dry Lips Insulin Glargine 10 units 05/01/18 22:00 05/03/18 22:54 Lantus SUB-Q 10 units QHS CECILE Administration Insulin Human Regular 0 units 04/26/18 07:30 05/04/18 08:49 Humulin R SUB-Q Not Given ACHS [facility] Protocol Labetalol HCl 200 mg 04/28/18 10:00 05/04/18 10:04 Normodyne PO 200 mg BID CECILE Administration Levetiracetam 500 mg 04/22/18 22:00 05/04/18 10:04 Keppra PO 500 mg BID CECILE Administration Multi-Ingred Cream/Lotion/Oil/Oint 1 applic 04/13/18 13:43 Artificial Tears Ophth Oint OU Q4HR PRN Dry Eye(s) Prednisone 20 mg 04/28/18 10:00 05/04/18 10:04 Deltasone PO 20 mg QDAY CECILE Administration Sodium Chloride 10 ml 04/13/18 22:00 05/04/18 10:05 Sodium Chloride Flush Syringe 10 Ml IV 10 ml BID CECILE Administration Sodium Chloride 10 ml 04/13/18 14:57 04/17/18 05:42 Sodium Chloride Flush Syringe 10 Ml IV 10 ml PRN PRN Administration LINE FLUSH
[2018-05-04] MEDS ORDERED: NACL 0.9% 100 ML IV PRN (10:57)
--- NOTE | 2018-05-04 11:51 | Progress Note ---
Assessment and Plan Assessment and plan: - Patient Problems (1) ESRD Current Visit: Yes Status: Acute Plan to address problem: Will need continue HD outpatient Further renal work up ongoing. Per renal * Will start 24h urine CrCl - if acceptable, will arrange for permcath removal and follow closely in the office. awaiting finaly result- ccrl 10 * Hold HD for now * Avoid potential nephrotoxins (2) Acute and chronic respiratory failure ([id number]) Current Visit: Yes Status: Acute S/P EXTUBATION (3) CHF (congestive heart failure) Current Visit: Yes Status: Acute Qualifiers: Heart failure type: systolic Heart failure chronicity: acute on chronic Qualified Code(s): I50.23 - Acute on chronic systolic (congestive) heart failure Plan to address problem: Patient with ejection fraction of 20%. Currently on beta natividad Lopressor. Not a candidate at this time for addition of TEOFILO inhibitor. Patient also does not appear to need diuretics at this time. 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 We'll add long-acting Lantus -Adjust to home dose of 20units. Accu-Cheks [id number] and 3 O2 ?if uncontrolled due to steroids. 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 (7) Acute on chronic renal failure Current Visit: No Status: Acute Qualifiers: Chronic kidney disease stage: stage 4 (severe) (8) CVA (cerebral infarction) Current Visit: No Status: Acute Qualifiers: Cerebral infarction mechanism: thrombosis Laterality of affected vessel: right DVT/GI prophy Awaiting HD set up for discharge, History Interval history: Patient seen and examined today, resting comfortably, no new complaints. tolerating diet. Encouraged more ambulation today Hospitalist Physical - Physical exam Narrative exam: General appearance: Present: no acute distress - EENT Eyes: Present: PERRL ENT: hearing decreased, poor dentition - Neck Neck: Present: supple, normal ROM - Respiratory Respiratory: bilateral: CTA - Cardiovascular Rhythm: regular - Extremities Extremities: No edema Extremity abnormal: other (extensive wounds over her lower extremities. dressing in place, no drainage) Peripheral Pulses: abnormal - Abdominal General gastrointestinal: soft, non-distended, normal bowel sounds - Integumentary Integumentary: Present: erythema. Absent: jaundice, rash - Psychiatric Psychiatric: other alert and oriented x2 - Constitutional Vitals: Temp Pulse Resp BP Pulse Ox 97.5 F L 74 24 138/94 97 05/04/18 05:53 05/04/18 05:53 05/04/18 05:53 05/04/18 05:53 05/04/18 05:53 General appearance: Present: no acute distress Results - Labs CBC & Chem 7: 05/03/18 04:53 05/04/18 05:39 Labs: Laboratory Last Values WBC 7.0 K/mm3 (4.5-11.0) 05/03/18 04:53 RBC 2.94 M/mm3 (3.65-5.03) L 05/03/18 04:53 Hgb 9.3 gm/dl (10.1-14.3) L 05/03/18 04:53 Hct 29.2 % (30.3-42.9) L 05/03/18 04:53 MCV 99 fl (79-97) H 05/03/18 04:53 MCH 32 pg (28-32) 05/03/18 04:53 MCHC 32 % (30-34) 05/03/18 04:53 RDW 16.2 % (13.2-15.2) H 05/03/18 04:53 Plt Count 235 K/mm3 (140-440) 05/03/18 04:53 Lymph % (Auto) 10.5 % (13.4-35.0) L 04/25/18 04:26 Anderson % (Auto) 4.5 % (0.0-7.3) 04/25/18 04:26 Eos % (Auto) 1.2 % (0.0-4.3) 04/25/18 04:26 Baso % (Auto) 0.6 % (0.0-1.8) 04/25/18 04:26 Lymph # 1.1 K/mm3 (1.2-5.4) L 04/25/18 04:26 Anderson # 0.5 K/mm3 (0.0-0.8) 04/25/18 04:26 Eos # 0.1 K/mm3 (0.0-0.4) 04/25/18 04:26 Baso # 0.1 K/mm3 (0.0-0.1) 04/25/18 04:26 Seg Neutrophils % 83.2 % (40.0-70.0) H 04/25/18 04:26 Seg Neutrophils # 8.5 K/mm3 (1.8-7.7) H 04/25/18 04:26 PT 14.3 Sec. (12.2-14.9) 04/13/18 13:41 INR 1.07 (0.87-1.13) 04/13/18 13:41 APTT 28.9 Sec. (24.2-36.6) 04/13/18 13:41 Thrombin Time 17.3 Sec. (15.1-19.6) 04/13/18 13:41 POC ABG pH 7.308 (7.35-7.45) L 04/17/18 20:40 POC ABG pCO2 31.3 (35-45) L 04/17/18 20:40 POC ABG pO2 61 (80-105) L 04/17/18 20:40 POC ABG HCO3 15.7 04/17/18 20:40 POC ABG Total CO2 17 04/17/18 20:40 POC ABG O2 Sat 89 04/17/18 20:40 POC ABG Base Excess -11 04/17/18 20:40 FiO2 30 % 04/17/18 20:40 Sodium 137 mmol/L (137-145) 05/04/18 05:39 Potassium 4.6 mmol/L (3.6-5.0) 05/04/18 05:39 Chloride 99.0 mmol/L (98-107) 05/04/18 05:39 Carbon Dioxide 21 mmol/L (22-30) L 05/04/18 05:39 Anion Gap 22 mmol/L 05/04/18 05:39 BUN 58 mg/dL (7-17) H 05/04/18 05:39 Creatinine 4.7 mg/dL (0.7-1.2) H 05/04/18 05:39 Estimated GFR 10 ml/min 05/04/18 05:39 BUN/Creatinine Ratio 12 % 05/04/18 05:39 Glucose 141 mg/dL (65-100) H 05/04/18 05:39 POC Glucose 130 (70-105) H 05/04/18 07:48 Lactic Acid 1.10 mmol/L (0.7-2.0) 04/13/18 16:23 Calcium 6.8 mg/dL (8.4-10.2) L 05/04/18 05:39 Phosphorus 3.10 mg/dL (2.5-4.5) 04/22/18 10:20 Magnesium 1.70 mg/dL (1.7-2.3) 04/26/18 15:25 Total Bilirubin 0.60 mg/dL (0.1-1.2) 04/14/18 08:01 Direct Bilirubin 0.2 mg/dL (0-0.2) 04/13/18 13:59 Indirect Bilirubin 0.3 mg/dL 04/13/18 13:59 AST 14 units/L (5-40) 04/14/18 08:01 ALT 7 units/L (7-56) 04/14/18 08:01 Alkaline Phosphatase 106 units/L (35-129) 04/14/18 08:01 Ammonia 47.0 umol/L (25-60) 04/16/18 11:17 Total Creatine Kinase 92 units/L (30-135) 04/13/18 13:59 CK-MB (CK-2) 3.7 ng/mL (0.0-4.0) 04/13/18 13:59 CK-MB (CK-2) Rel Index 4.0 (0-4) 04/13/18 13:59 Troponin T 0.010 ng/mL (0.00-0.029) 04/13/18 13:59 NT-Pro-B Natriuret Pep 86257 pg/mL (0-450) H 04/13/18 13:59 Serum Total Protein 5.6 g/dL (6.1-8.1) L 04/15/18 03:17 Total Protein 6.0 g/dL (6.3-8.2) L 04/14/18 08:01 Albumin 2.4 g/dL (3.8-4.8) L 04/15/18 03:17 Albumin/Globulin Ratio 0.8 % 04/14/18 08:01 Iilvu-9-Etoubzccf 0.4 g/dL (0.2-0.3) H 04/15/18 03:17 Hbkcn-4-Xcnscrweg 0.9 g/dL (0.5-0.9) 04/15/18 03:17 Beta Globulins 0.4 g/dL (0.2-0.5) 04/15/18 03:17 Gamma Globulins 1.2 g/dL (0.8-1.7) 04/15/18 03:17 Abnorm Protein Band 1 see below 04/15/18 03:17 PEP Interpretation see below H 04/15/18 03:17 Lipase 44 units/L (13-60) 04/13/18 13:59 Urine Color Diane (Yellow) 04/13/18 14:26 Urine Turbidity Cloudy (Clear) 04/13/18 14:26 Urine pH 5.0 (5.0-7.0) 04/13/18 14:26 Ur Specific [place] 1.017 (1.003-1.030) 04/13/18 14:26 Urine Protein >500 mg/dL (Negative) 04/13/18 14:26 Urine Glucose (UA) >=500 mg/dL (Negative) 04/13/18 14:26 Urine Ketones Neg mg/dL (Negative) 04/13/18 14:26 Urine Blood Neg (Negative) 04/13/18 14:26 Urine Nitrite Neg (Negative) 04/13/18 14:26 Urine Bilirubin Neg (Negative) 04/13/18 14:26 Urine Urobilinogen < 2.0 mg/dL (<2.0) 04/13/18 14:26 Ur Leukocyte Esterase Neg (Negative) 04/13/18 14:26 Urine WBC (Auto) 22.0 /HPF (0.0-6.0) H 04/13/18 14:26 Urine RBC (Auto) 17.0 /HPF (0.0-6.0) 04/13/18 14:26 U Epithel Cells (Auto) 3.0 /HPF (0-13.0) 04/13/18 14:26 Urine Bacteria (Auto) 4+ /HPF (Negative) 04/13/18 14:26 Urine Mucus Few /HPF 04/13/18 14:26 Urine Yeast (Budding) 3+ /HPF 04/13/18 14:26 Urine Eosinophils 7% (None Seen) 04/14/18 11:23 Urine Total Volume 800 ml 04/30/18 10:10 Urine Creatinine 96.4 mg/dL (0.1-20.0) H 04/30/18 10:10 Height (in) 68.0 inches 04/30/18 10:10 Weight (lb) 173.0 lbs 04/30/18 10:10 Creatinine Clearance 10 04/30/18 10:10 Protein/Creatinin Ratio 1.78 04/14/18 11:23 Urine Sodium 82 mmol/L 04/14/18 11:23 Fraction Sodium Excret 2.3 04/14/18 11:23 Urine Total Protein 152 mg/dL (5-11.8) H 04/14/18 11:23 Urine Opiates Screen Presumptive negative 04/13/18 14:26 Urine Methadone Screen Presumptive negative 04/13/18 14:26 Ur Barbiturates Screen Presumptive negative 04/13/18 14:26 Levetiracetam 37.6 mcg/mL 04/13/18 19:19 Ur Phencyclidine Scrn Presumptive negative 04/13/18 14:26 Ur Amphetamines Screen Presumptive negative 04/13/18 14:26 U Benzodiazepines Scrn Presumptive negative 04/13/18 14:26 Urine Cocaine Screen Presumptive negative 04/13/18 14:26 U Marijuana (THC) Screen Presumptive negative 04/13/18 14:26 Drugs of Abuse Note Disclamer 04/13/18 14:26 Proteinase 3 (PR3) Ab <1.0 AI (<1.0) 04/14/18 11:56 Myeloperoxidase Ab <1.0 AI (<1.0) 04/14/18 11:56 Double Strand DNA Ab <1 IU/mL (<=4) 04/14/18 11:56 Complement C3 155 mg/dL (83-193) 04/14/18 11:56 Complement C4 28 mg/dL (15-57) 04/14/18 11:56 Hepatitis A IgM Ab Non-reactive (NonReactive) 04/14/18 11:56 Hep Bs Antigen Non-reactive (Negative) 04/14/18 11:56 Hep B Core IgM Ab Non-reactive (NonReactive) 04/14/18 11:56 Hepatitis C Antibody Non-reactive (NonReactive) 04/14/18 11:56 Nutrition/Malnutrition Assess - Dietary Evaluation Nutrition/Malnutrition Findings: Nutrition Notes Start: 04/14/18 09:47 Freq: Status: Active Protocol: Document 05/03/18 16:29 RM (Rec: 05/03/18 16:38 RM [id number]) Nutrition Notes Initial or Follow up Reassessment Current Diagnosis CKD(stage I-IV) COPD Diabetes Hypertension Heart Failure Respiratory Failure Stroke Other Pertinent Diagnosis Hx of seizures, Wounds on R and L LE, fungal rash on groin and ischial fold Current Diet Renal Labs/Tests Reviewed Pertinent Medications Reviewed Height 5 ft 8 in Weight 78.3 kg [place] Body Weight (kg) 140.0 BMI 26.2 Weight change and time frame recorded wt loss likely d/t fluid change Subjective/Other Information Pt stated that her appetite is okay and that she eats 50% of her meals. Percent of energy/protein needs met: 60%/39% Burn Absent Trauma Absent #2 Nutrition Diagnosis Increased nutrient needs ( specify in comment below) Diagnosis Progress(for reassessment Continues documentation) #1 Nutrition Diagnosis Inadequate oral intake As Evidenced by Signs and Symptoms pt meeting 60% of calorie needs and 39% of protein needs Diagnosis Progress(for reassessment Worsened documentation) Is patient on ventilator? No Is Patient Ambulatory and/or Out of Bed No REE-(Crandall-St. Jeor-confined to bed) 5681.990 Calculation Used for Recommendations Crandall-St Jeor Additional Notes protein (1.2-1.4g/kg): 99-115 fluid: 1mL/kcal or per MD Nutrition Intervention Change Diet Order: Continue Renal Add Supplement/Snack (indicate name/kcal Nepro 1 daily /protein ) Provides kCal: 425 Provides Protein (gm) 19 Goal #1 Continue to meet at least 75% of calorie and protein needs via PO and ONS intake Anticipated Discharge Needs: Renal Follow-Up By: 05/07/18 Additional Comments Follow for PO and ONS intakes
[2018-05-04] MEDS ORDERED: NACL 0.9 (PRIMING MACHINE ONLY DIALYSIS) MC ONE (16:07)
[2018-05-04] MEDS: LANTUS SUB-Q SCH (21:36)
[2018-05-05 05:41] LABS: Calcium 6.9 mg/dL (8.4-10.2)
[2018-05-05] MEDS: DUONEB *Not for PRN Use IH SCH ×3 (08:21→19:48)
[2018-05-05] MEDS: HumuLIN R SUB-Q SCH ×4 (08:51→21:54)
--- NOTE | 2018-05-05 09:42 | Progress Note ---
Assessment and Plan Assessment and plan: 42 YO Female with HTN, Systolic CHF(EF 20%), CVA, DM, Seizure Disorder, COPD, Pulmonary HTN, CAD S/P Stent Placement presents to ED for evaluation. Pt is intubated and unable to provide history at time of exam. history taken from EMS. As per EMS, they were notified for Chest pain. Upon arrival the patient was found to have a witnessed seizure. Pt was treated with Ativan and subsequently transported to [facility] for further care and evaluation. Pt seen and evaluated in ED and found to have respiratory distress, and is unable to protect her airway. Pt intubate and placed on vent support for Acute Respiratory Failure. Pt also found to have CHF decompensation. Pt admitted to ICU. Pulmonary consulted in ED, Cardiology consulted in ED. During the course of the hospitalization the Patient was noted to have BLAS and started on Dialysis, Subsequently extubated but 24 HOUR URINE CREATININE CLEARANCE SHOWED A LEVEL OF 10 and was subsequently adjusted to ESRD. Patient is pending outpatient dialysis set up. Permacath Was placed (1) ESRD Current Visit: Yes Status: Acute Plan to address problem: Will need continue HD outpatient Further renal work up ongoing. Per renal Based on Renal function findings on CrCL (2) Acute and chronic respiratory failure ([id number]) Current Visit: Yes Status: Acute S/P EXTUBATION (3) CHF (congestive heart failure) Current Visit: Yes Status: Acute Qualifiers: Heart failure type: systolic Heart failure chronicity: acute on chronic Qualified Code(s): I50.23 - Acute on chronic systolic (congestive) heart failure Plan to address problem: Patient with ejection fraction of 20%. Currently on beta natividad Lopressor. Not a candidate at this time for addition of TEOFILO inhibitor. Patient also does not appear to need diuretics at this time. 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 (7) CVA (cerebral infarction) Current Visit: No Status: Acute Qualifiers: Cerebral infarction mechanism: thrombosis Laterality of affected vessel: right DVT/GI prophy Awaiting HD set up for discharge, History Interval history: Patient seen and examined today, resting comfortably, no new complaints. tolerating diet. again Encouraged more ambulation today Hospitalist Physical - Physical exam Narrative exam: General appearance: Present: no acute distress - EENT Eyes: Present: PERRL ENT: hearing decreased, poor dentition - Neck Neck: Present: supple, normal ROM - Respiratory Respiratory: bilateral: CTA - Cardiovascular Rhythm: regular - Extremities Extremities: No edema Extremity abnormal: other (extensive wounds over her lower extremities. dressing in place, no drainage) Peripheral Pulses: abnormal - Abdominal General gastrointestinal: soft, non-distended, normal bowel sounds - Integumentary Integumentary: Present: erythema. Absent: jaundice, rash - Psychiatric Psychiatric: other alert and oriented x2 - Constitutional Vitals: Temp Pulse Resp BP Pulse Ox 98.4 F 80 16 136/92 99 05/05/18 05:03 05/05/18 08:29 05/05/18 08:29 05/05/18 05:03 05/05/18 05:03 General appearance: Present: no acute distress Results - Labs CBC & Chem 7: 05/03/18 04:53 05/05/18 04:41 Labs: Laboratory Last Values WBC 7.0 K/mm3 (4.5-11.0) 05/03/18 04:53 RBC 2.94 M/mm3 (3.65-5.03) L 05/03/18 04:53 Hgb 9.3 gm/dl (10.1-14.3) L 05/03/18 04:53 Hct 29.2 % (30.3-42.9) L 05/03/18 04:53 MCV 99 fl (79-97) H 05/03/18 04:53 MCH 32 pg (28-32) 05/03/18 04:53 MCHC 32 % (30-34) 05/03/18 04:53 RDW 16.2 % (13.2-15.2) H 05/03/18 04:53 Plt Count 235 K/mm3 (140-440) 05/03/18 04:53 Lymph % (Auto) 10.5 % (13.4-35.0) L 04/25/18 04:26 [place] % (Auto) 4.5 % (0.0-7.3) 04/25/18 04:26 Eos % (Auto) 1.2 % (0.0-4.3) 04/25/18 04:26 Baso % (Auto) 0.6 % (0.0-1.8) 04/25/18 04:26 Lymph # 1.1 K/mm3 (1.2-5.4) L 04/25/18 04:26 [place] # 0.5 K/mm3 (0.0-0.8) 04/25/18 04:26 Eos # 0.1 K/mm3 (0.0-0.4) 04/25/18 04:26 Baso # 0.1 K/mm3 (0.0-0.1) 04/25/18 04:26 Seg Neutrophils % 83.2 % (40.0-70.0) H 04/25/18 04:26 Seg Neutrophils # 8.5 K/mm3 (1.8-7.7) H 04/25/18 04:26 PT 14.3 Sec. (12.2-14.9) 04/13/18 13:41 INR 1.07 (0.87-1.13) 04/13/18 13:41 APTT 28.9 Sec. (24.2-36.6) 04/13/18 13:41 Thrombin Time 17.3 Sec. (15.1-19.6) 04/13/18 13:41 POC ABG pH 7.308 (7.35-7.45) L 04/17/18 20:40 POC ABG pCO2 31.3 (35-45) L 04/17/18 20:40 POC ABG pO2 61 (80-105) L 04/17/18 20:40 POC ABG HCO3 15.7 04/17/18 20:40 POC ABG Total CO2 17 04/17/18 20:40 POC ABG O2 Sat 89 04/17/18 20:40 POC ABG Base Excess -11 04/17/18 20:40 FiO2 30 % 04/17/18 20:40 Sodium 135 mmol/L (137-145) L 05/05/18 04:41 Potassium 4.0 mmol/L (3.6-5.0) 05/05/18 04:41 Chloride 98.4 mmol/L (98-107) 05/05/18 04:41 Carbon Dioxide 26 mmol/L (22-30) 05/05/18 04:41 Anion Gap 15 mmol/L 05/05/18 04:41 BUN 35 mg/dL (7-17) H 05/05/18 04:41 Creatinine 2.9 mg/dL (0.7-1.2) H 05/05/18 04:41 Estimated GFR 18 ml/min 05/05/18 04:41 BUN/Creatinine Ratio 12 % 05/05/18 04:41 Glucose 123 mg/dL (65-100) H 05/05/18 04:41 POC Glucose 87 (70-105) 05/05/18 08:00 Lactic Acid 1.10 mmol/L (0.7-2.0) 04/13/18 16:23 Calcium 6.9 mg/dL (8.4-10.2) L 05/05/18 04:41 Phosphorus 3.10 mg/dL (2.5-4.5) 04/22/18 10:20 Magnesium 1.70 mg/dL (1.7-2.3) 04/26/18 15:25 Total Bilirubin 0.60 mg/dL (0.1-1.2) 04/14/18 08:01 Direct Bilirubin 0.2 mg/dL (0-0.2) 04/13/18 13:59 Indirect Bilirubin 0.3 mg/dL 04/13/18 13:59 AST 14 units/L (5-40) 04/14/18 08:01 ALT 7 units/L (7-56) 04/14/18 08:01 Alkaline Phosphatase 106 units/L (35-129) 04/14/18 08:01 Ammonia 47.0 umol/L (25-60) 04/16/18 11:17 Total Creatine Kinase 92 units/L (30-135) 04/13/18 13:59 CK-MB (CK-2) 3.7 ng/mL (0.0-4.0) 04/13/18 13:59 CK-MB (CK-2) Rel Index 4.0 (0-4) 04/13/18 13:59 Troponin T 0.010 ng/mL (0.00-0.029) 04/13/18 13:59 NT-Pro-B Natriuret Pep 71258 pg/mL (0-450) H 04/13/18 13:59 Serum Total Protein 5.6 g/dL (6.1-8.1) L 04/15/18 03:17 Total Protein 6.0 g/dL (6.3-8.2) L 04/14/18 08:01 Albumin 2.4 g/dL (3.8-4.8) L 04/15/18 03:17 Albumin/Globulin Ratio 0.8 % 04/14/18 08:01 Oprwn-2-Vmhrsgpsl 0.4 g/dL (0.2-0.3) H 04/15/18 03:17 Habef-5-Qtqtoqxsi 0.9 g/dL (0.5-0.9) 04/15/18 03:17 Beta Globulins 0.4 g/dL (0.2-0.5) 04/15/18 03:17 Gamma Globulins 1.2 g/dL (0.8-1.7) 04/15/18 03:17 Abnorm Protein Band 1 see below 04/15/18 03:17 PEP Interpretation see below H 04/15/18 03:17 Lipase 44 units/L (13-60) 04/13/18 13:59 Urine Color Diane (Yellow) 04/13/18 14:26 Urine Turbidity Cloudy (Clear) 04/13/18 14:26 Urine pH 5.0 (5.0-7.0) 04/13/18 14:26 Ur Specific [place] 1.017 (1.003-1.030) 04/13/18 14:26 Urine Protein >500 mg/dL (Negative) 04/13/18 14:26 Urine Glucose (UA) >=500 mg/dL (Negative) 04/13/18 14:26 Urine Ketones Neg mg/dL (Negative) 04/13/18 14:26 Urine Blood Neg (Negative) 04/13/18 14:26 Urine Nitrite Neg (Negative) 04/13/18 14:26 Urine Bilirubin Neg (Negative) 04/13/18 14:26 Urine Urobilinogen < 2.0 mg/dL (<2.0) 04/13/18 14:26 Ur Leukocyte Esterase Neg (Negative) 04/13/18 14:26 Urine WBC (Auto) 22.0 /HPF (0.0-6.0) H 04/13/18 14:26 Urine RBC (Auto) 17.0 /HPF (0.0-6.0) 04/13/18 14:26 U Epithel Cells (Auto) 3.0 /HPF (0-13.0) 04/13/18 14:26 Urine Bacteria (Auto) 4+ /HPF (Negative) 04/13/18 14:26 Urine Mucus Few /HPF 04/13/18 14:26 Urine Yeast (Budding) 3+ /HPF 04/13/18 14:26 Urine Eosinophils 7% (None Seen) 04/14/18 11:23 Urine Total Volume 800 ml 04/30/18 10:10 Urine Creatinine 96.4 mg/dL (0.1-20.0) H 04/30/18 10:10 Height (in) 68.0 inches 04/30/18 10:10 Weight (lb) 173.0 lbs 04/30/18 10:10 Creatinine Clearance 10 04/30/18 10:10 Protein/Creatinin Ratio 1.78 04/14/18 11:23 Urine Sodium 82 mmol/L 04/14/18 11:23 Fraction Sodium Excret 2.3 04/14/18 11:23 Urine Total Protein 152 mg/dL (5-11.8) H 04/14/18 11:23 Urine Opiates Screen Presumptive negative 04/13/18 14:26 Urine Methadone Screen Presumptive negative 04/13/18 14:26 Ur Barbiturates Screen Presumptive negative 04/13/18 14:26 Levetiracetam 37.6 mcg/mL 04/13/18 19:19 Ur Phencyclidine Scrn Presumptive negative 04/13/18 14:26 Ur Amphetamines Screen Presumptive negative 04/13/18 14:26 U Benzodiazepines Scrn Presumptive negative 04/13/18 14:26 Urine Cocaine Screen Presumptive negative 04/13/18 14:26 U Marijuana (THC) Screen Presumptive negative 04/13/18 14:26 Drugs of Abuse Note Disclamer 04/13/18 14:26 Proteinase 3 (PR3) Ab <1.0 AI (<1.0) 04/14/18 11:56 Myeloperoxidase Ab <1.0 AI (<1.0) 04/14/18 11:56 Double Strand DNA Ab <1 IU/mL (<=4) 04/14/18 11:56 Complement C3 155 mg/dL (83-193) 04/14/18 11:56 Complement C4 28 mg/dL (15-57) 04/14/18 11:56 Hepatitis A IgM Ab Non-reactive (NonReactive) 04/14/18 11:56 Hep Bs Antigen Non-reactive (Negative) 04/14/18 11:56 Hep B Core IgM Ab Non-reactive (NonReactive) 04/14/18 11:56 Hepatitis C Antibody Non-reactive (NonReactive) 04/14/18 11:56 Nutrition/Malnutrition Assess - Dietary Evaluation Nutrition/Malnutrition Findings: Nutrition Notes Start: 04/14/18 09:47 Freq: Status: Active Protocol: Document 05/03/18 16:29 RM (Rec: 05/03/18 16:38 RM [id number]) Nutrition Notes Initial or Follow up Reassessment Current Diagnosis CKD(stage I-IV) COPD Diabetes Hypertension Heart Failure Respiratory Failure Stroke Other Pertinent Diagnosis Hx of seizures, Wounds on R and L LE, fungal rash on groin and ischial fold Current Diet Renal Labs/Tests Reviewed Pertinent Medications Reviewed Height 5 ft 8 in Weight 78.3 kg [place] Body Weight (kg) 140.0 BMI 26.2 Weight change and time frame recorded wt loss likely d/t fluid change Subjective/Other Information Pt stated that her appetite is okay and that she eats 50% of her meals. Percent of energy/protein needs met: 60%/39% Burn Absent Trauma Absent #2 Nutrition Diagnosis Increased nutrient needs ( specify in comment below) Diagnosis Progress(for reassessment Continues documentation) #1 Nutrition Diagnosis Inadequate oral intake As Evidenced by Signs and Symptoms pt meeting 60% of calorie needs and 39% of protein needs Diagnosis Progress(for reassessment Worsened documentation) Is patient on ventilator? No Is Patient Ambulatory and/or Out of Bed No REE-(Hulbert-St. Jeor-confined to bed) 3561.543 Calculation Used for Recommendations [facility] or Additional Notes protein (1.2-1.4g/kg): 99-115 fluid: 1mL/kcal or per MD Nutrition Intervention Change Diet Order: Continue Renal Add Supplement/Snack (indicate name/kcal Nepro 1 daily /protein ) Provides kCal: 425 Provides Protein (gm) 19 Goal #1 Continue to meet at least 75% of calorie and protein needs via PO and ONS intake Anticipated Discharge Needs: Renal Follow-Up By: 05/07/18 Additional Comments Follow for PO and ONS intakes
[2018-05-05] MEDS: KEPPRA PO SCH ×2 (11:53→21:53)
[2018-05-05] MEDS: PEPCID PO SCH (11:53)
[2018-05-05] MEDS: DELTASONE PO SCH (11:53)
[2018-05-05] MEDS: ELIQUIS FEEDTUBE SCH ×2 (11:54→21:54)
[2018-05-05] MEDS: SODIUM CHLORIDE FLUSH SYRINGE 10 ML IV SCH ×2 (11:55→21:53)
[2018-05-05] MEDS: NORMODYNE PO SCH ×2 (12:02→21:54)
--- NOTE | 2018-05-05 12:16 | Progress Note ---
Assessment and Plan impression * ESRD * Respiratory failure secondary to pulmonary infiltrates * Asp PNA * Hypertension * Seizure disorder * Pulmonary hypertension * COPD * Metabolic Acidosis * History of CVA Recommendations * Patient baseline serum creatinine appears to be in the 3-4 range * cr continues to rise--crcl is 10ml/min with 800ml uop * will resume hd and monitor for recovery * Continue loop diuretics as needed * added sodium bicarbonate * Avoid nephrotoxins * Monitor fluid status and electrolytes closely * Renal ultrasound showing bilateral nonobstructing stones * will need outpatient hd unit placement Subjective Date of service: 05/05/18 Principal diagnosis: Acute respiratory failure, secondary to seizure episode. Chronic kidney di Interval history: resting well in bed today Objective - Exam Narrative Exam: General appearance: well-developed, well-nourished, appears stated age, intubated EENT: PERRL, mucous membranes moist Neck: no JVD, no thyromegaly Respiratory: Present: Clear to Ascultation Cardiology: regular, normal heart rate, S1S2, no murmurs Gastrointestinal: normal, normoactive bowel sounds Integumentary: other (no edema) - Vital Signs Vital signs: Vital Signs - 12hr 05/05/18 05/05/18 05/05/18 05:03 08:19 08:29 Temperature 98.4 F Pulse Rate 85 Pulse Rate [ 78 80 Anterior Bilateral Throughout] Respiratory 18 Rate Respiratory 16 16 Rate [Anterior Bilateral Throughout] Blood Pressure 136/92 O2 Sat by Pulse 99 Oximetry 05/05/18 12:02 Temperature Pulse Rate 81 Pulse Rate [ Anterior Bilateral Throughout] Respiratory Rate Respiratory Rate [Anterior Bilateral Throughout] Blood Pressure 118/75 O2 Sat by Pulse Oximetry - Lab 05/03/18 04:53 05/05/18 04:41 Most recent lab results Calcium 6.9 mg/dL (8.4-10.2) L 05/05/18 04:41 Phosphorus 3.10 mg/dL (2.5-4.5) 04/22/18 10:20 Magnesium 1.70 mg/dL (1.7-2.3) 04/26/18 15:25 Urine Creatinine 96.4 mg/dL (0.1-20.0) H 04/30/18 10:10 Urine Sodium 82 mmol/L 04/14/18 11:23 Urine Total Protein 152 mg/dL (5-11.8) H 04/14/18 11:23 Medications & Allergies - Medications Allergies/Adverse Reactions: Allergies No Known Allergies Allergy (Verified 04/17/18 10:03) Home Medications: Home Medications Medication Instructions Recorded Confirmed Last Taken Type Aspirin EC [Aspirin Enteric Coated 81 mg PO QDAY #30 tablet 07/22/17 04/23/18 02/17/18 Rx TAB] 81mg Labetalol [Normodyne TAB] 200 mg PO BID #60 tablet 12/04/17 05/04/18 Unknown Rx amLODIPine [Norvasc] 10 mg PO QDAY #30 tablet 12/04/17 04/23/18 Unknown Rx Apixaban [Eliquis] 2.5 mg PO BID 60 Days tablet 02/22/18 04/23/18 Unknown Rx AtorvaSTATin [Lipitor] 20 mg PO QHS #30 tablet 02/22/18 04/23/18 Unknown Rx Insulin Glargine,Hum.rec.anlog 20 unit SQ QHS #30 insuln.pen 02/22/18 04/23/18 Unknown Rx [Lantus Solostar] Lispro Insulin [Humalog] 0 unit SUB-Q ACHS units 02/22/18 04/23/18 Unknown Rx levETIRAcetam [Keppra TAB] 500 mg PO BID #90 tablet 02/22/18 04/23/18 Unknown Rx hydrALAZINE [Apresoline TAB] 100 mg PO TID 04/23/18 04/23/18 Unknown History Prednisone [predniSONE 5 mg (6-Day 5 mg PO .TAPER #1 tab.ds.pk 04/29/18 Unknown Rx Pack, 21 Tabs)] Active Medications: Generic Name Dose Route Start Last Admin Trade Name Freq PRN Reason Stop Dose Admin Albuterol 2.5 mg 04/13/18 14:57 Proventil IH Q3H PRN Shortness Of Breath Albuterol/Ipratropium 1 ampul 04/23/18 20:00 05/05/18 08:21 Duoneb *Not For Prn Use* IH 1 ampul TIDRT CECILE Administration Apixaban 2.5 mg 04/14/18 18:00 05/05/18 11:54 Eliquis FEEDTUBE 2.5 mg Q12HR CECILE Administration Protocol Atorvastatin Calcium 20 mg 04/23/18 22:00 05/04/18 21:28 Lipitor PO 20 mg QHS CECILE Administration Benzocaine/Menthol 1 each 04/23/18 08:51 Cepacol X Strength MM Q1HR PRN Sore Throat Dextrose 50 ml 04/14/18 19:05 04/18/18 00:15 D50w (25gm) Syringe IV 50 ml PRN PRN Administration Hypoglycemia Epoetin Kofi 10,000 unit 04/29/18 06:00 04/29/18 12:50 Procrit IV 10,000 unit MIRI PRN Administration hemodialysis Famotidine 20 mg 04/15/18 10:00 05/05/18 11:53 Pepcid PO 20 mg DAILY CECILE Administration Hydralazine HCl 10 mg 04/14/18 16:15 04/19/18 18:45 Apresoline IV 10 mg Q4HR PRN Administration SBP >150 or DBP >90 Hydrophilic Ointment 1 applic 04/13/18 13:43 Vaseline Lip Therapy TP Q2HR PRN Dry Lips Sodium Chloride 100 mls @ 999 mls/hr 05/04/18 10:57 Nacl 0.9% IV MIRI PRN Hypotension Insulin Glargine 10 units 05/01/18 22:00 05/04/18 21:36 Lantus SUB-Q 10 units QHS CECILE Administration Insulin Human Regular 0 units 04/26/18 07:30 05/05/18 12:04 Humulin R SUB-Q Not Given ACHS [facility] Protocol Labetalol HCl 200 mg 04/28/18 10:00 05/05/18 12:02 Normodyne PO 200 mg BID CECILE Administration Levetiracetam 500 mg 04/22/18 22:00 05/05/18 11:53 Keppra PO 500 mg BID CECILE Administration Multi-Ingred Cream/Lotion/Oil/Oint 1 applic 04/13/18 13:43 Artificial Tears Ophth Oint OU Q4HR PRN Dry Eye(s) Prednisone 20 mg 04/28/18 10:00 05/05/18 11:53 Deltasone PO 20 mg QDAY CECILE Administration Sodium Chloride 10 ml 04/13/18 22:00 05/05/18 11:55 Sodium Chloride Flush Syringe 10 Ml IV 10 ml BID CECILE Administration Sodium Chloride 10 ml 04/13/18 14:57 04/17/18 05:42 Sodium Chloride Flush Syringe 10 Ml IV 10 ml PRN PRN Administration LINE FLUSH
[2018-05-05] MEDS: LANTUS SUB-Q SCH (21:53)
[2018-05-06 04:42] LABS: Calcium 6.7 mg/dL (8.4-10.2)
[2018-05-06] MEDS: DUONEB *Not for PRN Use IH SCH ×3 (08:08→19:34)
[2018-05-06] MEDS: HumuLIN R SUB-Q SCH ×3 (08:45→16:30)
[2018-05-06] MEDS: DELTASONE PO SCH (10:41)
[2018-05-06] MEDS: ELIQUIS FEEDTUBE SCH ×2 (10:41→22:58)
[2018-05-06] MEDS: PEPCID PO SCH (10:41)
[2018-05-06] MEDS: KEPPRA PO SCH ×2 (10:41→22:57)
[2018-05-06] MEDS: SODIUM CHLORIDE FLUSH SYRINGE 10 ML IV SCH ×2 (10:42→22:58)
[2018-05-06] MEDS: NORMODYNE PO SCH ×2 (10:47→23:04)
--- NOTE | 2018-05-06 11:33 | Progress Note ---
Assessment and Plan impression * ESRD * Respiratory failure secondary to pulmonary infiltrates * Asp PNA * Hypertension * Seizure disorder * Pulmonary hypertension * COPD * Metabolic Acidosis * History of CVA Recommendations * Patient baseline serum creatinine appears to be in the 3-4 range * cr continues to rise--crcl is 10ml/min with 800ml uop * will resume hd and monitor for recovery * Continue loop diuretics as needed * added sodium bicarbonate * Avoid nephrotoxins * Monitor fluid status and electrolytes closely * Renal ultrasound showing bilateral nonobstructing stones * will need outpatient hd unit placement Subjective Date of service: 05/06/18 Principal diagnosis: Acute respiratory failure, secondary to seizure episode. Chronic kidney di Interval history: resting well in bed today Objective - Exam Narrative Exam: General appearance: well-developed, well-nourished, appears stated age, intubated EENT: PERRL, mucous membranes moist Neck: no JVD, no thyromegaly Respiratory: Present: Clear to Ascultation Cardiology: regular, normal heart rate, S1S2, no murmurs Gastrointestinal: normal, normoactive bowel sounds Integumentary: other (no edema) - Vital Signs Vital signs: Vital Signs - 12hr 05/06/18 05/06/18 05/06/18 00:35 05:18 08:00 Temperature 98.7 F 98.5 F Pulse Rate 81 82 Pulse Rate [ 76 Bilateral] Respiratory 18 18 Rate Respiratory 16 Rate [Bilateral ] Blood Pressure 124/82 132/83 O2 Sat by Pulse 98 98 Oximetry 05/06/18 05/06/18 08:10 10:47 Temperature Pulse Rate 84 Pulse Rate [ 80 Bilateral] Respiratory Rate Respiratory 16 Rate [Bilateral ] Blood Pressure O2 Sat by Pulse Oximetry - Lab 05/03/18 04:53 05/06/18 03:48 Most recent lab results Calcium 6.7 mg/dL (8.4-10.2) L 05/06/18 03:48 Phosphorus 3.10 mg/dL (2.5-4.5) 04/22/18 10:20 Magnesium 1.70 mg/dL (1.7-2.3) 04/26/18 15:25 Urine Creatinine 96.4 mg/dL (0.1-20.0) H 04/30/18 10:10 Urine Sodium 82 mmol/L 04/14/18 11:23 Urine Total Protein 152 mg/dL (5-11.8) H 04/14/18 11:23 Medications & Allergies - Medications Allergies/Adverse Reactions: Allergies No Known Allergies Allergy (Verified 04/17/18 10:03) Home Medications: Home Medications Medication Instructions Recorded Confirmed Last Taken Type Aspirin EC [Aspirin Enteric Coated 81 mg PO QDAY #30 tablet 07/22/17 04/23/18 02/17/18 Rx TAB] 81mg Labetalol [Normodyne TAB] 200 mg PO BID #60 tablet 12/04/17 05/04/18 Unknown Rx amLODIPine [Norvasc] 10 mg PO QDAY #30 tablet 12/04/17 04/23/18 Unknown Rx Apixaban [Eliquis] 2.5 mg PO BID 60 Days tablet 02/22/18 04/23/18 Unknown Rx AtorvaSTATin [Lipitor] 20 mg PO QHS #30 tablet 02/22/18 04/23/18 Unknown Rx Insulin Glargine,Hum.rec.anlog 20 unit SQ QHS #30 insuln.pen 02/22/18 04/23/18 Unknown Rx [Lantus Solostar] Lispro Insulin [Humalog] 0 unit SUB-Q ACHS units 02/22/18 04/23/18 Unknown Rx levETIRAcetam [Keppra TAB] 500 mg PO BID #90 tablet 02/22/18 04/23/18 Unknown Rx hydrALAZINE [Apresoline TAB] 100 mg PO TID 04/23/18 04/23/18 Unknown History Prednisone [predniSONE 5 mg (6-Day 5 mg PO .TAPER #1 tab.ds.pk 04/29/18 Unknown Rx Pack, 21 Tabs)] Active Medications: Generic Name Dose Route Start Last Admin Trade Name Freq PRN Reason Stop Dose Admin Albuterol 2.5 mg 04/13/18 14:57 Proventil IH Q3H PRN Shortness Of Breath Albuterol/Ipratropium 1 ampul 04/23/18 20:00 05/06/18 08:08 Duoneb *Not For Prn Use* IH 1 ampul TIDRT CECILE Administration Apixaban 2.5 mg 04/14/18 18:00 05/06/18 10:41 Eliquis FEEDTUBE 2.5 mg Q12HR CECILE Administration Protocol Atorvastatin Calcium 20 mg 04/23/18 22:00 05/05/18 21:54 Lipitor PO 20 mg QHS CECILE Administration Benzocaine/Menthol 1 each 04/23/18 08:51 Cepacol X Strength MM Q1HR PRN Sore Throat Dextrose 50 ml 04/14/18 19:05 04/18/18 00:15 D50w (25gm) Syringe IV 50 ml PRN PRN Administration Hypoglycemia Epoetin Kofi 10,000 unit 04/29/18 06:00 04/29/18 12:50 Procrit IV 10,000 unit MIRI PRN Administration hemodialysis Famotidine 20 mg 04/15/18 10:00 05/06/18 10:41 Pepcid PO 20 mg DAILY CECILE Administration Hydralazine HCl 10 mg 04/14/18 16:15 04/19/18 18:45 Apresoline IV 10 mg Q4HR PRN Administration SBP >150 or DBP >90 Hydrophilic Ointment 1 applic 04/13/18 13:43 Vaseline Lip Therapy TP Q2HR PRN Dry Lips Sodium Chloride 100 mls @ 999 mls/hr 05/04/18 10:57 Nacl 0.9% IV MIRI PRN Hypotension Insulin Glargine 10 units 05/01/18 22:00 05/05/18 21:53 Lantus SUB-Q 10 units QHS CECILE Administration Insulin Human Regular 0 units 04/26/18 07:30 05/06/18 08:45 Humulin R SUB-Q 2 units ACHS CECILE Administration Protocol Labetalol HCl 200 mg 04/28/18 10:00 05/06/18 10:47 Normodyne PO 200 mg BID CECILE Administration Levetiracetam 500 mg 04/22/18 22:00 05/06/18 10:41 Keppra PO 500 mg BID CECILE Administration Multi-Ingred Cream/Lotion/Oil/Oint 1 applic 04/13/18 13:43 Artificial Tears Ophth Oint OU Q4HR PRN Dry Eye(s) Prednisone 20 mg 04/28/18 10:00 05/06/18 10:41 Deltasone PO 20 mg QDAY CECILE Administration Sodium Chloride 10 ml 04/13/18 22:00 05/06/18 10:42 Sodium Chloride Flush Syringe 10 Ml IV 10 ml BID CECILE Administration Sodium Chloride 10 ml 04/13/18 14:57 04/17/18 05:42 Sodium Chloride Flush Syringe 10 Ml IV 10 ml PRN PRN Administration LINE FLUSH
--- NOTE | 2018-05-06 15:40 | Progress Note ---
Assessment and Plan Assessment and plan: 42 YO Female with HTN, Systolic CHF(EF 20%), CVA, DM, Seizure Disorder, COPD, Pulmonary HTN, CAD S/P Stent Placement presents to ED for evaluation. Pt is intubated and unable to provide history at time of exam. history taken from EMS. As per EMS, they were notified for Chest pain. Upon arrival the patient was found to have a witnessed seizure. Pt was treated with Ativan and subsequently transported to [facility] for further care and evaluation. Pt seen and evaluated in ED and found to have respiratory distress, and is unable to protect her airway. Pt intubate and placed on vent support for Acute Respiratory Failure. Pt also found to have CHF decompensation. Pt admitted to ICU. Pulmonary consulted in ED, Cardiology consulted in ED. * During the course of the hospitalization the Patient was noted to have BLAS and started on Dialysis. * Patient was intubated duet o respiratory failure and subsequently extubated * 24 HOUR URINE CREATININE CLEARANCE SHOWED A LEVEL OF 10 and was subsequently adjusted to ESRD. * Patient is pending outpatient dialysis set up. Permacath Was placed (1) ESRD Current Visit: Yes Status: Acute Plan to address problem: Will need continue HD outpatient Further renal work up ongoing. Per renal Based on Renal function findings on CrCL (2) Acute and chronic respiratory failure ([id number]) Current Visit: Yes Status: Acute S/P EXTUBATION (3) CHF (congestive heart failure) Current Visit: Yes Status: Acute Qualifiers: Heart failure type: systolic Heart failure chronicity: acute on chronic Qualified Code(s): I50.23 - Acute on chronic systolic (congestive) heart failure Plan to address problem: Patient with ejection fraction of 20%. Currently on beta natividad Lopressor. Not a candidate at this time for addition of TEOFILO inhibitor. Patient also does not appear to need diuretics at this time and can be evaluated outpatient (4) Diabetes type 2, Uncontrolled Current Visit: Yes Status: Acute Qualifiers: Diabetes mellitus intermodal customer service insulin use: with intermodal customer service use Diabetes mellitus complication status: with kidney complications Diabetes mellitus complication detail: with chronic kidney disease Chronic kidney disease stage: stage 4 (severe) Qualified Code(s): E11.22 - Type 2 diabetes mellitus with dennis betic chronic kidney disease; N18.4 - Chronic kidney disease, stage 4 (severe); Z79.4 - snf (current) use of insulin Plan to address problem: Continue Insulin management- ?if uncontrolled due to steroids. will taper AND Monitor as patient was hypoglycemic at some point (5) Encephalopathy-metabolic Current Visit: Yes Status: Acute Resolved (6) Recurrent seizures Current Visit: Yes Status: Acute Plan to address problem: This most likely reason for encephalopathy chronic anoxia secondary to status e pilepticus. Now resolved DVT/GI prophy Awaiting HD set up for discharge, History Interval history: Patient seen and examined today, resting comfortably, no new complaints. Tolerating diet. Encouraged more ambulation today. per nursing staff patient has been able to ambulate Hospitalist Physical - Physical exam Narrative exam: General appearance: Present: no acute distress - EENT Eyes: Present: PERRL ENT: hearing decreased, poor dentition - Neck Neck: Present: supple, normal ROM - Respiratory Respiratory: bilateral: CTA - Cardiovascular Rhythm: regular - Extremities Extremities: No edema Extremity abnormal: other (extensive wounds over her lower extremities. dressing in place, no drainage) Peripheral Pulses: abnormal - Abdominal General gastrointestinal: soft, non-distended, normal bowel sounds, truncal obesity - Integumentary Integumentary: Present: erythema. Absent: jaundice, rash - Psychiatric Psychiatric: other alert and oriented x2 - Constitutional Vitals: Temp Pulse Resp BP Pulse Ox 98.0 F 85 16 115/79 97 05/06/18 11:30 05/06/18 14:12 05/06/18 14:12 05/06/18 11:30 05/06/18 11:30 General appearance: Present: no acute distress Results - Labs CBC & Chem 7: 05/03/18 04:53 05/06/18 03:48 Labs: Laboratory Last Values WBC 7.0 K/mm3 (4.5-11.0) 05/03/18 04:53 RBC 2.94 M/mm3 (3.65-5.03) L 05/03/18 04:53 Hgb 9.3 gm/dl (10.1-14.3) L 05/03/18 04:53 Hct 29.2 % (30.3-42.9) L 05/03/18 04:53 MCV 99 fl (79-97) H 05/03/18 04:53 MCH 32 pg (28-32) 05/03/18 04:53 MCHC 32 % (30-34) 05/03/18 04:53 RDW 16.2 % (13.2-15.2) H 05/03/18 04:53 Plt Count 235 K/mm3 (140-440) 05/03/18 04:53 Lymph % (Auto) 10.5 % (13.4-35.0) L 04/25/18 04:26 [place] % (Auto) 4.5 % (0.0-7.3) 04/25/18 04:26 Eos % (Auto) 1.2 % (0.0-4.3) 04/25/18 04:26 Baso % (Auto) 0.6 % (0.0-1.8) 04/25/18 04:26 Lymph # 1.1 K/mm3 (1.2-5.4) L 04/25/18 04:26 [place] # 0.5 K/mm3 (0.0-0.8) 04/25/18 04:26 Eos # 0.1 K/mm3 (0.0-0.4) 04/25/18 04:26 Baso # 0.1 K/mm3 (0.0-0.1) 04/25/18 04:26 Seg Neutrophils % 83.2 % (40.0-70.0) H 04/25/18 04:26 Seg Neutrophils # 8.5 K/mm3 (1.8-7.7) H 04/25/18 04:26 PT 14.3 Sec. (12.2-14.9) 04/13/18 13:41 INR 1.07 (0.87-1.13) 04/13/18 13:41 APTT 28.9 Sec. (24.2-36.6) 04/13/18 13:41 Thrombin Time 17.3 Sec. (15.1-19.6) 04/13/18 13:41 POC ABG pH 7.308 (7.35-7.45) L 04/17/18 20:40 POC ABG pCO2 31.3 (35-45) L 04/17/18 20:40 POC ABG pO2 61 (80-105) L 04/17/18 20:40 POC ABG HCO3 15.7 04/17/18 20:40 POC ABG Total CO2 17 04/17/18 20:40 POC ABG O2 Sat 89 04/17/18 20:40 POC ABG Base Excess -11 04/17/18 20:40 FiO2 30 % 04/17/18 20:40 Sodium 138 mmol/L (137-145) 05/06/18 03:48 Potassium 4.4 mmol/L (3.6-5.0) 05/06/18 03:48 Chloride 101.1 mmol/L (98-107) 05/06/18 03:48 Carbon Dioxide 25 mmol/L (22-30) 05/06/18 03:48 Anion Gap 16 mmol/L 05/06/18 03:48 BUN 43 mg/dL (7-17) H 05/06/18 03:48 Creatinine 3.4 mg/dL (0.7-1.2) H 05/06/18 03:48 Estimated GFR 15 ml/min 05/06/18 03:48 BUN/Creatinine Ratio 13 % 05/06/18 03:48 Glucose 145 mg/dL (65-100) H 05/06/18 03:48 POC Glucose 71 (70-105) 05/06/18 10:39 Lactic Acid 1.10 mmol/L (0.7-2.0) 04/13/18 16:23 Calcium 6.7 mg/dL (8.4-10.2) L 05/06/18 03:48 Phosphorus 3.10 mg/dL (2.5-4.5) 04/22/18 10:20 Magnesium 1.70 mg/dL (1.7-2.3) 04/26/18 15:25 Total Bilirubin 0.60 mg/dL (0.1-1.2) 04/14/18 08:01 Direct Bilirubin 0.2 mg/dL (0-0.2) 04/13/18 13:59 Indirect Bilirubin 0.3 mg/dL 04/13/18 13:59 AST 14 units/L (5-40) 04/14/18 08:01 ALT 7 units/L (7-56) 04/14/18 08:01 Alkaline Phosphatase 106 units/L (35-129) 04/14/18 08:01 Ammonia 47.0 umol/L (25-60) 04/16/18 11:17 Total Creatine Kinase 92 units/L (30-135) 04/13/18 13:59 CK-MB (CK-2) 3.7 ng/mL (0.0-4.0) 04/13/18 13:59 CK-MB (CK-2) Rel Index 4.0 (0-4) 04/13/18 13:59 Troponin T 0.010 ng/mL (0.00-0.029) 04/13/18 13:59 NT-Pro-B Natriuret Pep 67663 pg/mL (0-450) H 04/13/18 13:59 Serum Total Protein 5.6 g/dL (6.1-8.1) L 04/15/18 03:17 Total Protein 6.0 g/dL (6.3-8.2) L 04/14/18 08:01 Albumin 2.4 g/dL (3.8-4.8) L 04/15/18 03:17 Albumin/Globulin Ratio 0.8 % 04/14/18 08:01 Mpvgb-8-U[place]ggey 0.4 g/dL (0.2-0.3) H 04/15/18 03:17 Ttxhy-6-Wzswuuvfr 0.9 g/dL (0.5-0.9) 04/15/18 03:17 Beta Globulins 0.4 g/dL (0.2-0.5) 04/15/18 03:17 Gamma Globulins 1.2 g/dL (0.8-1.7) 04/15/18 03:17 Abnorm Protein Band 1 see below 04/15/18 03:17 PEP Interpretation see below H 04/15/18 03:17 Lipase 44 units/L (13-60) 04/13/18 13:59 Urine Color Diane (Yellow) 04/13/18 14:26 Urine Turbidity Cloudy (Clear) 04/13/18 14:26 Urine pH 5.0 (5.0-7.0) 04/13/18 14:26 Ur Specific [place] 1.017 (1.003-1.030) 04/13/18 14:26 Urine Protein >500 mg/dL (Negative) 04/13/18 14:26 Urine Glucose (UA) >=500 mg/dL (Negative) 04/13/18 14:26 Urine Ketones Neg mg/dL (Negative) 04/13/18 14:26 Urine Blood Neg (Negative) 04/13/18 14:26 Urine Nitrite Neg (Negative) 04/13/18 14:26 Urine Bilirubin Neg (Negative) 04/13/18 14:26 Urine Urobilinogen < 2.0 mg/dL (<2.0) 04/13/18 14:26 Ur Leukocyte Esterase Neg (Negative) 04/13/18 14:26 Urine WBC (Auto) 22.0 /HPF (0.0-6.0) H 04/13/18 14:26 Urine RBC (Auto) 17.0 /HPF (0.0-6.0) 04/13/18 14:26 U Epithel Cells (Auto) 3.0 /HPF (0-13.0) 04/13/18 14:26 Urine Bacteria (Auto) 4+ /HPF (Negative) 04/13/18 14:26 Urine Mucus Few /HPF 04/13/18 14:26 Urine Yeast (Budding) 3+ /HPF 04/13/18 14:26 Urine Eosinophils 7% (None Seen) 04/14/18 11:23 Urine Total Volume 800 ml 04/30/18 10:10 Urine Creatinine 96.4 mg/dL (0.1-20.0) H 04/30/18 10:10 Height (in) 68.0 inches 04/30/18 10:10 Weight (lb) 173.0 lbs 04/30/18 10:10 Creatinine Clearance 10 04/30/18 10:10 Protein/Creatinin Ratio 1.78 04/14/18 11:23 Urine Sodium 82 mmol/L 04/14/18 11:23 Fraction Sodium Excret 2.3 04/14/18 11:23 Urine Total Protein 152 mg/dL (5-11.8) H 04/14/18 11:23 Urine Opiates Screen Presumptive negative 04/13/18 14:26 Urine Methadone Screen Presumptive negative 04/13/18 14:26 Ur Barbiturates Screen Presumptive negative 04/13/18 14:26 Levetiracetam 37.6 mcg/mL 04/13/18 19:19 Ur Phencyclidine Scrn Presumptive negative 04/13/18 14:26 Ur Amphetamines Screen Presumptive negative 04/13/18 14:26 U Benzodiazepines Scrn Presumptive negative 04/13/18 14:26 Urine Cocaine Screen Presumptive negative 04/13/18 14:26 U Marijuana (THC) Screen Presumptive negative 04/13/18 14:26 Drugs of Abuse Note Disclamer 04/13/18 14:26 Proteinase 3 (PR3) Ab <1.0 AI (<1.0) 04/14/18 11:56 Myeloperoxidase Ab <1.0 AI (<1.0) 04/14/18 11:56 Double Strand DNA Ab <1 IU/mL (<=4) 04/14/18 11:56 Complement C3 155 mg/dL (83-193) 04/14/18 11:56 Complement C4 28 mg/dL (15-57) 04/14/18 11:56 Hepatitis A IgM Ab Non-reactive (NonReactive) 04/14/18 11:56 Hep Bs Antigen Non-reactive (Negative) 04/14/18 11:56 Hep B Core IgM Ab Non-reactive (NonReactive) 04/14/18 11:56 Hepatitis C Antibody Non-reactive (NonReactive) 04/14/18 11:56 Nutrition/Malnutrition Assess - Dietary Evaluation Nutrition/Malnutrition Findings: Nutrition Notes Start: 04/14/18 09:47 Freq: Status: Active Protocol: Document 05/03/18 16:29 RM (Rec: 05/03/18 16:38 RM [email or web address]) Nutrition Notes Initial or Follow up Reassessment Current Diagnosis CKD(stage I-IV) COPD Diabetes Hypertension Heart Failure Respiratory Failure Stroke Other Pertinent Diagnosis Hx of seizures, Wounds on R and L LE, fungal rash on groin and ischial fold Current Diet Renal Labs/Tests Reviewed Pertinent Medications Reviewed Height 5 ft 8 in Weight 78.3 kg [place] Body Weight (kg) 140.0 BMI 26.2 Weight change and time frame recorded wt loss likely d/t fluid change Subjective/Other Information Pt stated that her appetite is okay and that she eats 50% of her meals. Percent of energy/protein needs met: 60%/39% Burn Absent Trauma Absent #2 Nutrition Diagnosis Increased nutrient needs ( specify in comment below) Diagnosis Progress(for reassessment Continues documentation) #1 Nutrition Diagnosis Inadequate oral intake As Evidenced by Signs and Symptoms pt meeting 60% of calorie needs and 39% of protein needs Diagnosis Progress(for reassessment Worsened documentation) Is patient on ventilator? No Is Patient Ambulatory and/or Out of Bed No REE-([facility]-confined to bed) 4977.103 Calculation Used for Recommendations Kenneth Kirby Additional Notes protein (1.2-1.4g/kg): 99-115 fluid: 1mL/kcal or per MD Nutrition Intervention Change Diet Order: Continue Renal Add Supplement/Snack (indicate name/kcal Nepro 1 daily /protein ) Provides kCal: 425 Provides Protein (gm) 19 Goal #1 Continue to meet at least 75% of calorie and protein needs via PO and ONS intake Anticipated Discharge Needs: Renal Follow-Up By: 05/07/18 Additional Comments Follow for PO and ONS intakes
[2018-05-06] MEDS: LANTUS SUB-Q SCH (23:06)
[2018-05-07 07:17] LABS: Calcium 6.9 mg/dL (8.4-10.2)
[2018-05-07] MEDS: DUONEB *Not for PRN Use IH SCH ×3 (08:31→22:30)
[2018-05-07] MEDS: PROCRIT IV PRN (10:18)
[2018-05-07] MEDS ORDERED: NACL 0.9 (PRIMING MACHINE ONLY DIALYSIS) MC ONE (10:18)
[2018-05-07] MEDS: NORMODYNE PO SCH ×2 (13:49→22:23)
[2018-05-07] MEDS: DELTASONE PO SCH (13:50)
[2018-05-07] MEDS: KEPPRA PO SCH ×2 (13:50→22:22)
[2018-05-07] MEDS: ELIQUIS FEEDTUBE SCH ×2 (13:50→22:23)
[2018-05-07] MEDS: PEPCID PO SCH (13:50)
[2018-05-07] MEDS: HumuLIN R SUB-Q SCH ×4 (13:53→22:46)
[2018-05-07] MEDS: SODIUM CHLORIDE FLUSH SYRINGE 10 ML IV SCH ×2 (13:54→22:24)
--- NOTE | 2018-05-07 14:40 | Progress Note ---
Assessment and Plan Assessment and plan: 42 YO Female with HTN, Systolic CHF(EF 20%), CVA, DM, Seizure Disorder, COPD, Pulmonary HTN, CAD S/P Stent Placement presents to ED for evaluation. Pt is intubated and unable to provide history at time of exam. history taken from EMS. As per EMS, they were notified for Chest pain. Upon arrival the patient was found to have a witnessed seizure. Pt was treated with Ativan and subsequently transported to [facility] for further care and evaluation. Pt seen and evaluated in ED and found to have respiratory distress, and is unable to protect her airway. Pt intubate and placed on vent support for Acute Respiratory Failure. Pt also found to have CHF decompensation. Pt admitted to ICU. Pulmonary consulted in ED, Cardiology consulted in ED. During the course of the hospitalization the Patient was noted to have BLAS and started on Dialysis. Patient was intubated duet o respiratory failure and subsequently extubated 24 HOUR URINE CREATININE CLEARANCE SHOWED A LEVEL OF 10 and was subsequently adjusted to ESRD. Patient is pending outpatient dialysis set up. Permacath Was placed (1) ESRD Current Visit: Yes Status: Acute Plan to address problem: Will need continue HD outpatient Further renal work up ongoing. Per renal Based on Renal function findings on CrCL (2) Acute and chronic respiratory failure ([id number]) Current Visit: Yes Status: Acute S/P EXTUBATION saturating well on room air (3) CHF (congestive heart failure) Current Visit: Yes Status: Acute Qualifiers: Heart failure type: systolic Heart failure chronicity: acute on chronic Qualified Code(s): I50.23 - Acute on chronic systolic (congestive) heart failure Plan to address problem: Patient with ejection fraction of 20%. Currently on beta natividad Lopressor. Not a candidate at this time for addition of TEOFILO inhibitor. 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 will taper AND Monitor as patient was hypoglycemic at some point (5) Encephalopathy-metabolic Current Visit: Yes Status: Acute Resolved (6) Recurrent seizures Current Visit: Yes Status: Acute Plan to address problem: This most likely reason for encephalopathy chronic anoxia secondary to status epilepticus. Now resolved DVT/GI prophy Awaiting HD set up for discharge, History Interval history: Patient was seen and evaluated this morning in the dialysis unit, patient was alert and oriented. Patient did have any complaints. Hospitalist Physical - Physical exam Narrative exam: Not in cardiopulmonary distress. The patient appeared well nourished and normally developed. Vital signs as documented. Head exam is unremarkable. No scleral icterus . Neck is without jugular venous distension, thyromegaly, or carotid bruits. Lungs are clear to auscultation. Cardiac exam reveals regular rate and Rhythm. First and second heart sounds normal. No murmurs, rubs or gallops. Abdominal exam reveals normal bowel sounds, no masses, no organomegaly and no aortic enlargement. Extremities are nonedematous and both femoral and pedal pulses are normal. DEPORTATION EXAMINER: Alert and oriented 3. No focal weakness. - Constitutional Vitals: Temp Pulse Resp BP Pulse Ox 97.2 F L 84 18 159/96 96 05/07/18 13:15 05/07/18 13:49 05/07/18 13:15 05/07/18 13:49 05/06/18 21:13 General appearance: Present: no acute distress Results - Labs CBC & Chem 7: 05/03/18 04:53 05/07/18 06:20 Labs: Laboratory Last Values WBC 7.0 K/mm3 (4.5-11.0) 05/03/18 04:53 RBC 2.94 M/mm3 (3.65-5.03) L 05/03/18 04:53 Hgb 9.3 gm/dl (10.1-14.3) L 05/03/18 04:53 Hct 29.2 % (30.3-42.9) L 05/03/18 04:53 MCV 99 fl (79-97) H 05/03/18 04:53 MCH 32 pg (28-32) 05/03/18 04:53 MCHC 32 % (30-34) 05/03/18 04:53 RDW 16.2 % (13.2-15.2) H 05/03/18 04:53 Plt Count 235 K/mm3 (140-440) 05/03/18 04:53 Lymph % (Auto) 10.5 % (13.4-35.0) L 04/25/18 04:26 [place] % (Auto) 4.5 % (0.0-7.3) 04/25/18 04:26 Eos % (Auto) 1.2 % (0.0-4.3) 04/25/18 04:26 Baso % (Auto) 0.6 % (0.0-1.8) 04/25/18 04:26 Lymph # 1.1 K/mm3 (1.2-5.4) L 04/25/18 04:26 [place] # 0.5 K/mm3 (0.0-0.8) 04/25/18 04:26 Eos # 0.1 K/mm3 (0.0-0.4) 04/25/18 04:26 Baso # 0.1 K/mm3 (0.0-0.1) 04/25/18 04:26 Seg Neutrophils % 83.2 % (40.0-70.0) H 04/25/18 04:26 Seg Neutrophils # 8.5 K/mm3 (1.8-7.7) H 04/25/18 04:26 PT 14.3 Sec. (12.2-14.9) 04/13/18 13:41 INR 1.07 (0.87-1.13) 04/13/18 13:41 APTT 28.9 Sec. (24.2-36.6) 04/13/18 13:41 Thrombin Time 17.3 Sec. (15.1-19.6) 04/13/18 13:41 POC ABG pH 7.308 (7.35-7.45) L 04/17/18 20:40 POC ABG pCO2 31.3 (35-45) L 04/17/18 20:40 POC ABG pO2 61 (80-105) L 04/17/18 20:40 POC ABG HCO3 15.7 04/17/18 20:40 POC ABG Total CO2 17 04/17/18 20:40 POC ABG O2 Sat 89 04/17/18 20:40 POC ABG Base Excess -11 04/17/18 20:40 FiO2 30 % 04/17/18 20:40 Sodium 139 mmol/L (137-145) 05/07/18 06:20 Potassium 4.2 mmol/L (3.6-5.0) 05/07/18 06:20 Chloride 101.3 mmol/L (98-107) 05/07/18 06:20 Carbon Dioxide 23 mmol/L (22-30) 05/07/18 06:20 Anion Gap 19 mmol/L 05/07/18 06:20 BUN 54 mg/dL (7-17) H 05/07/18 06:20 Creatinine 4.0 mg/dL (0.7-1.2) H 05/07/18 06:20 Estimated GFR 12 ml/min 05/07/18 06:20 BUN/Creatinine Ratio 14 % 05/07/18 06:20 Glucose 133 mg/dL (65-100) H 05/07/18 06:20 POC Glucose 98 (70-105) 05/07/18 08:04 Lactic Acid 1.10 mmol/L (0.7-2.0) 04/13/18 16:23 Calcium 6.9 mg/dL (8.4-10.2) L 05/07/18 06:20 Phosphorus 3.10 mg/dL (2.5-4.5) 04/22/18 10:20 Magnesium 1.70 mg/dL (1.7-2.3) 04/26/18 15:25 Total Bilirubin 0.60 mg/dL (0.1-1.2) 04/14/18 08:01 Direct Bilirubin 0.2 mg/dL (0-0.2) 04/13/18 13:59 Indirect Bilirubin 0.3 mg/dL 04/13/18 13:59 AST 14 units/L (5-40) 04/14/18 08:01 ALT 7 units/L (7-56) 04/14/18 08:01 Alkaline Phosphatase 106 units/L (35-129) 04/14/18 08:01 Ammonia 47.0 umol/L (25-60) 04/16/18 11:17 Total Creatine Kinase 92 units/L (30-135) 04/13/18 13:59 CK-MB (CK-2) 3.7 ng/mL (0.0-4.0) 04/13/18 13:59 CK-MB (CK-2) Rel Index 4.0 (0-4) 04/13/18 13:59 Troponin T 0.010 ng/mL (0.00-0.029) 04/13/18 13:59 NT-Pro-B Natriuret Pep 17448 pg/mL (0-450) H 04/13/18 13:59 Serum Total Protein 5.6 g/dL (6.1-8.1) L 04/15/18 03:17 Total Protein 6.0 g/dL (6.3-8.2) L 04/14/18 08:01 Albumin 2.4 g/dL (3.8-4.8) L 04/15/18 03:17 Albumin/Globulin Ratio 0.8 % 04/14/18 08:01 Jyxfv-6-Bmdglzdez 0.4 g/dL (0.2-0.3) H 04/15/18 03:17 Xjeaj-7-Yrixdiuhp 0.9 g/dL (0.5-0.9) 04/15/18 03:17 Beta Globulins 0.4 g/dL (0.2-0.5) 04/15/18 03:17 Gamma Globulins 1.2 g/dL (0.8-1.7) 04/15/18 03:17 Abnorm Protein Band 1 see below 04/15/18 03:17 PEP Interpretation see below H 04/15/18 03:17 Lipase 44 units/L (13-60) 04/13/18 13:59 Urine Color Diane (Yellow) 04/13/18 14:26 Urine Turbidity Cloudy (Clear) 04/13/18 14:26 Urine pH 5.0 (5.0-7.0) 04/13/18 14:26 Ur Specific [place] 1.017 (1.003-1.030) 04/13/18 14:26 Urine Protein >500 mg/dL (Negative) 04/13/18 14:26 Urine Glucose (UA) >=500 mg/dL (Negative) 04/13/18 14:26 Urine Ketones Neg mg/dL (Negative) 04/13/18 14:26 Urine Blood Neg (Negative) 04/13/18 14:26 Urine Nitrite Neg (Negative) 04/13/18 14:26 Urine Bilirubin Neg (Negative) 04/13/18 14:26 Urine Urobilinogen < 2.0 mg/dL (<2.0) 04/13/18 14:26 Ur Leukocyte Esterase Neg (Negative) 04/13/18 14:26 Urine WBC (Auto) 22.0 /HPF (0.0-6.0) H 04/13/18 14:26 Urine RBC (Auto) 17.0 /HPF (0.0-6.0) 04/13/18 14:26 U Epithel Cells (Auto) 3.0 /HPF (0-13.0) 04/13/18 14:26 Urine Bacteria (Auto) 4+ /HPF (Negative) 04/13/18 14:26 Urine Mucus Few /HPF 04/13/18 14:26 Urine Yeast (Budding) 3+ /HPF 04/13/18 14:26 Urine Eosinophils 7% (None Seen) 04/14/18 11:23 Urine Total Volume 800 ml 04/30/18 10:10 Urine Creatinine 96.4 mg/dL (0.1-20.0) H 04/30/18 10:10 Height (in) 68.0 inches 04/30/18 10:10 Weight (lb) 173.0 lbs 04/30/18 10:10 Creatinine Clearance 10 04/30/18 10:10 Protein/Creatinin Ratio 1.78 04/14/18 11:23 Urine Sodium 82 mmol/L 04/14/18 11:23 Fraction Sodium Excret 2.3 04/14/18 11:23 Urine Total Protein 152 mg/dL (5-11.8) H 04/14/18 11:23 Urine Opiates Screen Presumptive negative 04/13/18 14:26 Urine Methadone Screen Presumptive negative 04/13/18 14:26 Ur Barbiturates Screen Presumptive negative 04/13/18 14:26 Levetiracetam 37.6 mcg/mL 04/13/18 19:19 Ur Phencyclidine Scrn Presumptive negative 04/13/18 14:26 Ur Amphetamines Screen Presumptive negative 04/13/18 14:26 U Benzodiazepines Scrn Presumptive negative 04/13/18 14:26 Urine Cocaine Screen Presumptive negative 04/13/18 14:26 U Marijuana (THC) Screen Presumptive negative 04/13/18 14:26 Drugs of Abuse Note Disclamer 04/13/18 14:26 Proteinase 3 (PR3) Ab <1.0 AI (<1.0) 04/14/18 11:56 Myeloperoxidase Ab <1.0 AI (<1.0) 04/14/18 11:56 Double Strand DNA Ab <1 IU/mL (<=4) 04/14/18 11:56 Complement C3 155 mg/dL (83-193) 04/14/18 11:56 Complement C4 28 mg/dL (15-57) 04/14/18 11:56 Hepatitis A IgM Ab Non-reactive (NonReactive) 04/14/18 11:56 Hep Bs Antigen Non-reactive (Negative) 04/14/18 11:56 Hep B Core IgM Ab Non-reactive (NonReactive) 04/14/18 11:56 Hepatitis C Antibody Non-reactive (NonReactive) 04/14/18 11:56 Nutrition/Malnutrition Assess - Dietary Evaluation Nutrition/Malnutrition Findings: Nutrition Notes Start: 04/14/18 09:47 Freq: Status: Active Protocol: Document 05/03/18 16:29 RM (Rec: 05/03/18 16:38 RM [email or web address]) Nutrition Notes Initial or Follow up Reassessment Current Diagnosis CKD(stage I-IV) COPD Diabetes Hypertension Heart Failure Respiratory Failure Stroke Other Pertinent Diagnosis Hx of seizures, Wounds on R and L LE, fungal rash on groin and ischial fold Current Diet Renal Labs/Tests Reviewed Pertinent Medications Reviewed Height 5 ft 8 in Weight 78.3 kg [place] Body Weight (kg) 140.0 BMI 26.2 Weight change and time frame recorded wt loss likely d/t fluid change Subjective/Other Information Pt stated that her appetite is okay and that she eats 50% of her meals. Percent of energy/protein needs met: 60%/39% Burn Absent Trauma Absent #2 Nutrition Diagnosis Increased nutrient needs ( specify in comment below) Diagnosis Progress(for reassessment Continues documentation) #1 Nutrition Diagnosis Inadequate oral intake As Evidenced by Signs and Symptoms pt meeting 60% of calorie needs and 39% of protein needs Diagnosis Progress(for reassessment Worsened documentation) Is patient on ventilator? No Is Patient Ambulatory and/or Out of Bed No REE-(Drain-St[facility] Jeor-confined to bed) 7367.955 Calculation Used for Recommendations Drain-[facility] Jeor Additional Notes protein (1.2-1.4g/kg): 99-115 fluid: 1mL/kcal or per MD Nutrition Intervention Change Diet Order: Continue Renal Add Supplement/Snack (indicate name/kcal Nepro 1 daily /protein ) Provides kCal: 425 Provides Protein (gm) 19 Goal #1 Continue to meet at least 75% of calorie and protein needs via PO and ONS intake Anticipated Discharge Needs: Renal Follow-Up By: 05/07/18 Additional Comments Follow for PO and ONS intakes
--- NOTE | 2018-05-07 15:46 | Progress Note ---
Assessment and Plan impression * ESRD * Respiratory failure secondary to pulmonary infiltrates * Asp PNA * Hypertension * Seizure disorder * Pulmonary hypertension * COPD * Metabolic Acidosis * History of CVA Recommendations * Patient baseline serum creatinine appears to be in the 3-4 range * cr continues to rise--crcl is 10ml/min with 800ml uop * will resume hd and monitor for recovery * Continue loop diuretics as needed * added sodium bicarbonate * Avoid nephrotoxins * Monitor fluid status and electrolytes closely * Renal ultrasound showing bilateral nonobstructing stones * will need outpatient hd unit placement Subjective Date of service: 05/07/18 Principal diagnosis: Acute respiratory failure, secondary to seizure episode. Chronic kidney di Interval history: resting well in bed today Objective - Exam Narrative Exam: General appearance: well-developed, well-nourished, appears stated age, intubated EENT: PERRL, mucous membranes moist Neck: no JVD, no thyromegaly Respiratory: Present: Clear to Ascultation Cardiology: regular, normal heart rate, S1S2, no murmurs Gastrointestinal: normal, normoactive bowel sounds Integumentary: other (no edema) - Vital Signs Vital signs: Vital Signs - 12hr 05/07/18 05/07/18 05/07/18 08:31 09:40 09:45 Temperature 98.8 F Pulse Rate 79 81 Pulse Rate [ 88 Anterior Bilateral Throughout] Pulse Rate [ 84 Bilateral] Respiratory 18 Rate Respiratory 16 Rate [Anterior Bilateral Throughout] Respiratory 16 Rate [Bilateral ] Blood Pressure 152/96 151/85 05/07/18 05/07/18 05/07/18 10:00 10:15 10:30 Temperature Pulse Rate 78 85 81 Pulse Rate [ Anterior Bilateral Throughout] Pulse Rate [ Bilateral] Respiratory Rate Respiratory Rate [Anterior Bilateral Throughout] Respiratory Rate [Bilateral ] Blood Pressure 152/97 147/87 145/85 05/07/18 05/07/18 05/07/18 10:45 11:00 11:15 Temperature Pulse Rate 81 78 83 Pulse Rate [ Anterior Bilateral Throughout] Pulse Rate [ Bilateral] Respiratory Rate Respiratory Rate [Anterior Bilateral Throughout] Respiratory Rate [Bilateral ] Blood Pressure 145/88 156/87 151/85 05/07/18 05/07/18 05/07/18 11:30 11:45 12:00 Temperature Pulse Rate 81 83 80 Pulse Rate [ Anterior Bilateral Throughout] Pulse Rate [ Bilateral] Respiratory Rate Respiratory Rate [Anterior Bilateral Throughout] Respiratory Rate [Bilateral ] Blood Pressure 142/84 161/81 158/90 05/07/18 05/07/18 05/07/18 12:15 12:30 12:54 Temperature Pulse Rate 86 82 84 Pulse Rate [ Anterior Bilateral Throughout] Pulse Rate [ Bilateral] Respiratory Rate Respiratory Rate [Anterior Bilateral Throughout] Respiratory Rate [Bilateral ] Blood Pressure 154/91 152/81 159/93 05/07/18 05/07/18 13:15 13:49 Temperature 97.2 F L Pulse Rate 84 84 Pulse Rate [ Anterior Bilateral Throughout] Pulse Rate [ Bilateral] Respiratory 18 Rate Respiratory Rate [Anterior Bilateral Throughout] Respiratory Rate [Bilateral ] Blood Pressure 159/96 159/96 - Lab 05/03/18 04:53 05/07/18 06:20 Most recent lab results Calcium 6.9 mg/dL (8.4-10.2) L 05/07/18 06:20 Phosphorus 3.10 mg/dL (2.5-4.5) 04/22/18 10:20 Magnesium 1.70 mg/dL (1.7-2.3) 04/26/18 15:25 Urine Creatinine 96.4 mg/dL (0.1-20.0) H 04/30/18 10:10 Urine Sodium 82 mmol/L 04/14/18 11:23 Urine Total Protein 152 mg/dL (5-11.8) H 04/14/18 11:23 Medications & Allergies - Medications Allergies/Adverse Reactions: Allergies No Known Allergies Allergy (Verified 04/17/18 10:03) Home Medications: Home Medications Medication Instructions Recorded Confirmed Last Taken Type Aspirin EC [Aspirin Enteric Coated 81 mg PO QDAY #30 tablet 07/22/17 04/23/18 02/17/18 Rx TAB] 81mg Labetalol [Normodyne TAB] 200 mg PO BID #60 tablet 12/04/17 05/04/18 Unknown Rx amLODIPine [Norvasc] 10 mg PO QDAY #30 tablet 12/04/17 04/23/18 Unknown Rx Apixaban [Eliquis] 2.5 mg PO BID 60 Days tablet 02/22/18 04/23/18 Unknown Rx AtorvaSTATin [Lipitor] 20 mg PO QHS #30 tablet 02/22/18 04/23/18 Unknown Rx Insulin Glargine,Hum.rec.anlog 20 unit SQ QHS #30 insuln.pen 02/22/18 04/23/18 Unknown Rx [Lantus Solostar] Lispro Insulin [Humalog] 0 unit SUB-Q ACHS units 02/22/18 04/23/18 Unknown Rx levETIRAcetam [Keppra TAB] 500 mg PO BID #90 tablet 02/22/18 04/23/18 Unknown Rx hydrALAZINE [Apresoline TAB] 100 mg PO TID 04/23/18 04/23/18 Unknown History Prednisone [predniSONE 5 mg (6-Day 5 mg PO .TAPER #1 tab.ds.pk 04/29/18 Unknown Rx Pack, 21 Tabs)] Active Medications: Generic Name Dose Route Start Last Admin Trade Name Freq PRN Reason Stop Dose Admin Albuterol 2.5 mg 04/13/18 14:57 Proventil IH Q3H PRN Shortness Of Breath Albuterol/Ipratropium 1 ampul 04/23/18 20:00 05/07/18 13:22 Duoneb *Not For Prn Use* IH Not Given TIDRT CECILE Apixaban 2.5 mg 04/14/18 18:00 05/07/18 13:50 Eliquis FEEDTUBE 2.5 mg Q12HR CECILE Administration Protocol Atorvastatin Calcium 20 mg 04/23/18 22:00 05/06/18 22:57 Lipitor PO 20 mg QHS CECILE Administration Benzocaine/Menthol 1 each 04/23/18 08:51 Cepacol X Strength MM Q1HR PRN Sore Throat Dextrose 50 ml 04/14/18 19:05 04/18/18 00:15 D50w (25gm) Syringe IV 50 ml PRN PRN Administration Hypoglycemia Epoetin Kofi 10,000 unit 04/29/18 06:00 05/07/18 10:18 Procrit IV 10,000 unit MIRI PRN Administration hemodialysis Famotidine 20 mg 04/15/18 10:00 05/07/18 13:50 Pepcid PO 20 mg DAILY CECILE Administration Hydralazine HCl 10 mg 04/14/18 16:15 04/19/18 18:45 Apresoline IV 10 mg Q4HR PRN Administration SBP >150 or DBP >90 Hydrophilic Ointment 1 applic 04/13/18 13:43 Vaseline Lip Therapy TP Q2HR PRN Dry Lips Sodium Chloride 100 mls @ 999 mls/hr 05/04/18 10:57 Nacl 0.9% IV MIRI PRN Hypotension Insulin Glargine 10 units 05/01/18 22:00 05/06/18 23:06 Lantus SUB-Q 10 units QHS CECILE Administration Insulin Human Regular 0 units 04/26/18 07:30 05/07/18 13:53 Humulin R SUB-Q Not Given ACHS [facility] Protocol Labetalol HCl 200 mg 04/28/18 10:00 05/07/18 13:49 Normodyne PO 200 mg BID CECILE Administration Levetiracetam 500 mg 04/22/18 22:00 05/07/18 13:50 Keppra PO 500 mg BID CECILE Administration Multi-Ingred Cream/Lotion/Oil/Oint 1 applic 04/13/18 13:43 Artificial Tears Ophth Oint OU Q4HR PRN Dry Eye(s) Prednisone 20 mg 04/28/18 10:00 05/07/18 13:50 Deltasone PO 20 mg QDAY CECILE Administration Sodium Chloride 10 ml 04/13/18 22:00 05/07/18 13:54 Sodium Chloride Flush Syringe 10 Ml IV 10 ml BID CECILE Administration Sodium Chloride 10 ml 04/13/18 14:57 04/17/18 05:42 Sodium Chloride Flush Syringe 10 Ml IV 10 ml PRN PRN Administration LINE FLUSH
[2018-05-07] MEDS: LANTUS SUB-Q SCH (22:44)
[2018-05-08 06:33] LABS: Calcium 7.2 mg/dL (8.4-10.2)
[2018-05-08] MEDS: DUONEB *Not for PRN Use IH SCH ×3 (08:10→20:52)
[2018-05-08] MEDS: HumuLIN R SUB-Q SCH ×4 (10:33→22:59)
[2018-05-08] MEDS: PEPCID PO SCH (10:33)
[2018-05-08] MEDS: DELTASONE PO SCH (10:33)
[2018-05-08] MEDS: NORMODYNE PO SCH ×2 (10:33→21:47)
[2018-05-08] MEDS: ELIQUIS FEEDTUBE SCH ×2 (10:34→21:47)
[2018-05-08] MEDS: KEPPRA PO SCH ×2 (10:34→21:47)
[2018-05-08] MEDS: SODIUM CHLORIDE FLUSH SYRINGE 10 ML IV SCH ×2 (10:35→21:48)
--- NOTE | 2018-05-08 12:45 | Progress Note ---
Assessment and Plan impression * ESRD * Respiratory failure secondary to pulmonary infiltrates * Asp PNA * Hypertension * Seizure disorder * Pulmonary hypertension * COPD * Metabolic Acidosis * History of CVA Recommendations * HD qTTHSAT * Patient baseline serum creatinine appears to be in the 3-4 range * cr continues to rise--crcl is 10ml/min with 800ml uop * Continue loop diuretics as needed * added sodium bicarbonate * Avoid nephrotoxins * Monitor fluid status and electrolytes closely * Renal ultrasound showing bilateral nonobstructing stones * will need outpatient hd unit placement Subjective Date of service: 05/08/18 Principal diagnosis: Acute respiratory failure, secondary to seizure episode. Chronic kidney di Interval history: resting well in bed today Objective - Exam Narrative Exam: General appearance: well-developed, well-nourished, appears stated age, intubated EENT: PERRL, mucous membranes moist Neck: no JVD, no thyromegaly Respiratory: Present: Clear to Ascultation Cardiology: regular, normal heart rate, S1S2, no murmurs Gastrointestinal: normal, normoactive bowel sounds Integumentary: other (no edema) - Vital Signs Vital signs: Vital Signs - 12hr 05/08/18 05/08/18 05/08/18 04:26 08:11 10:33 Temperature 98.1 F Pulse Rate 88 Pulse Rate [ 86 Anterior Bilateral Throughout] Pulse Rate [ 84 Bilateral] Respiratory 16 Rate Respiratory 16 Rate [Anterior Bilateral Throughout] Respiratory 16 Rate [Bilateral ] Blood Pressure 141/84 131/80 O2 Sat by Pulse 98 Oximetry - Lab 05/03/18 04:53 05/08/18 05:38 Most recent lab results Calcium 7.2 mg/dL (8.4-10.2) L 05/08/18 05:38 Phosphorus 3.10 mg/dL (2.5-4.5) 04/22/18 10:20 Magnesium 1.70 mg/dL (1.7-2.3) 04/26/18 15:25 Urine Creatinine 96.4 mg/dL (0.1-20.0) H 04/30/18 10:10 Urine Sodium 82 mmol/L 04/14/18 11:23 Urine Total Protein 152 mg/dL (5-11.8) H 04/14/18 11:23 Medications & Allergies - Medications Allergies/Adverse Reactions: Allergies No Known Allergies Allergy (Verified 04/17/18 10:03) Home Medications: Home Medications Medication Instructions Recorded Confirmed Last Taken Type Aspirin EC [Aspirin Enteric Coated 81 mg PO QDAY #30 tablet 07/22/17 04/23/18 02/17/18 Rx TAB] 81mg Labetalol [Normodyne TAB] 200 mg PO BID #60 tablet 12/04/17 05/04/18 Unknown Rx amLODIPine [Norvasc] 10 mg PO QDAY #30 tablet 12/04/17 04/23/18 Unknown Rx Apixaban [Eliquis] 2.5 mg PO BID 60 Days tablet 02/22/18 04/23/18 Unknown Rx AtorvaSTATin [Lipitor] 20 mg PO QHS #30 tablet 02/22/18 04/23/18 Unknown Rx Insulin Glargine,Hum.rec.anlog 20 unit SQ QHS #30 insuln.pen 02/22/18 04/23/18 Unknown Rx [Lantus Solostar] Lispro Insulin [Humalog] 0 unit SUB-Q ACHS units 02/22/18 04/23/18 Unknown Rx levETIRAcetam [Keppra TAB] 500 mg PO BID #90 tablet 02/22/18 04/23/18 Unknown Rx hydrALAZINE [Apresoline TAB] 100 mg PO TID 04/23/18 04/23/18 Unknown History Prednisone [predniSONE 5 mg (6-Day 5 mg PO .TAPER #1 tab.ds.pk 04/29/18 Unknown Rx Pack, 21 Tabs)] Active Medications: Generic Name Dose Route Start Last Admin Trade Name Freq PRN Reason Stop Dose Admin Albuterol 2.5 mg 04/13/18 14:57 Proventil IH Q3H PRN Shortness Of Breath Albuterol/Ipratropium 1 ampul 04/23/18 20:00 05/08/18 08:10 Duoneb *Not For Prn Use* IH 1 ampul TIDRT CECILE Administration Apixaban 2.5 mg 04/14/18 18:00 05/08/18 10:34 Eliquis FEEDTUBE 2.5 mg Q12HR CECILE Administration Protocol Atorvastatin Calcium 20 mg 04/23/18 22:00 05/07/18 22:22 Lipitor PO 20 mg QHS ECCILE Administration Benzocaine/Menthol 1 each 04/23/18 08:51 Cepacol X Strength MM Q1HR PRN Sore Throat Dextrose 50 ml 04/14/18 19:05 04/18/18 00:15 D50w (25gm) Syringe IV 50 ml PRN PRN Administration Hypoglycemia Epoetin Kofi 10,000 unit 04/29/18 06:00 05/07/18 10:18 Procrit IV 10,000 unit MIRI PRN Administration hemodialysis Famotidine 20 mg 04/15/18 10:00 05/08/18 10:33 Pepcid PO 20 mg DAILY CECILE Administration Hydralazine HCl 10 mg 04/14/18 16:15 04/19/18 18:45 Apresoline IV 10 mg Q4HR PRN Administration SBP >150 or DBP >90 Hydrophilic Ointment 1 applic 04/13/18 13:43 Vaseline Lip Therapy TP Q2HR PRN Dry Lips Sodium Chloride 100 mls @ 999 mls/hr 05/04/18 10:57 Nacl 0.9% IV MIRI PRN Hypotension Insulin Glargine 10 units 05/01/18 22:00 05/07/18 22:44 Lantus SUB-Q 10 units QHS CECILE Administration Insulin Human Regular 0 units 04/26/18 07:30 05/08/18 10:33 Humulin R SUB-Q Not Given ACHS [facility] Protocol Labetalol HCl 200 mg 04/28/18 10:00 05/08/18 10:33 Normodyne PO 200 mg BID CECILE Administration Levetiracetam 500 mg 05/08/18 22:00 Keppra PO BID [facility] Multi-Ingred Cream/Lotion/Oil/Oint 1 applic 04/13/18 13:43 Artificial Tears Ophth Oint OU Q4HR PRN Dry Eye(s) Prednisone 20 mg 04/28/18 10:00 05/08/18 10:33 Deltasone PO 20 mg QDAY CECILE Administration Sodium Chloride 10 ml 04/13/18 22:00 05/08/18 10:35 Sodium Chloride Flush Syringe 10 Ml IV 10 ml BID CECILE Administration Sodium Chloride 10 ml 04/13/18 14:57 04/17/18 05:42 Sodium Chloride Flush Syringe 10 Ml IV 10 ml PRN PRN Administration LINE FLUSH
--- NOTE | 2018-05-08 15:07 | Progress Note ---
Assessment and Plan Assessment and plan: 42 YO Female with HTN, Systolic CHF(EF 20%), CVA, DM, Seizure Disorder, COPD, Pulmonary HTN, CAD S/P Stent Placement presents to ED for evaluation. Pt is intubated and unable to provide history at time of exam. history taken from EMS. As per EMS, they were notified for Chest pain. Upon arrival the patient was found to have a witnessed seizure. Pt was treated with Ativan and subsequently transported to [facility] for further care and evaluation. Pt seen and evaluated in ED and found to have respiratory distress, and is unable to protect her airway. Pt intubate and placed on vent support for Acute Respiratory Failure. Pt also found to have CHF decompensation. Pt admitted to ICU. Pulmonary consulted in ED, Cardiology consulted in ED. During the course of the hospitalization the Patient was noted to have BLAS and started on Dialysis. Patient was intubated duet o respiratory failure and subsequently extubated 24 HOUR URINE CREATININE CLEARANCE SHOWED A LEVEL OF 10 and was subsequently adjusted to ESRD. Patient is pending outpatient dialysis set up. Permacath Was placed (1) ESRD Current Visit: Yes Status: Acute Plan to address problem: Will need continue HD outpatient Further renal work up ongoing. Per renal Based on Renal function findings on CrCL (2) Acute and chronic respiratory failure ([id number]) Current Visit: Yes Status: Acute S/P EXTUBATION saturating well on room air (3) CHF (congestive heart failure) Current Visit: Yes Status: Acute Qualifiers: Heart failure type: systolic Heart failure chronicity: acute on chronic Qualified Code(s): I50.23 - Acute on chronic systolic (congestive) heart failure Plan to address problem: Patient with ejection fraction of 20%. Currently on beta natividad Lopressor. Not a candidate at this time for addition of TEOFILO inhibitor. 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 will taper AND Monitor as patient was hypoglycemic at some point (5) Encephalopathy-metabolic Current Visit: Yes Status: Acute Resolved (6) Recurrent seizures Current Visit: Yes Status: Acute Plan to address problem: This most likely reason for encephalopathy chronic anoxia secondary to status epilepticus. Now resolved DVT/GI prophy Awaiting HD set up for discharge, History Interval history: Patient was seen and evaluated this morning in the dialysis unit, patient was alert and oriented. Patient did have any complaints. Hospitalist Physical - Physical exam Narrative exam: Not in cardiopulmonary distress. The patient appeared well nourished and normally developed. Vital signs as documented. Head exam is unremarkable. No scleral icterus . Neck is without jugular venous distension, thyromegaly, or carotid bruits. Lungs are clear to auscultation. Cardiac exam reveals regular rate and Rhythm. First and second heart sounds normal. No murmurs, rubs or gallops. Abdominal exam reveals normal bowel sounds, no masses, no organomegaly and no aortic enlargement. Extremities are nonedematous and both femoral and pedal pulses are normal. BIOLOGICAL CHEMIST: Alert and oriented 3. No focal weakness. - Constitutional Vitals: Temp Pulse Resp BP Pulse Ox 98.4 F 82 16 137/85 98 05/08/18 12:37 05/08/18 13:03 05/08/18 13:03 05/08/18 12:37 05/08/18 12:37 General appearance: Present: no acute distress Results - Labs CBC & Chem 7: 05/03/18 04:53 05/08/18 05:38 Labs: Laboratory Last Values WBC 7.0 K/mm3 (4.5-11.0) 05/03/18 04:53 RBC 2.94 M/mm3 (3.65-5.03) L 05/03/18 04:53 Hgb 9.3 gm/dl (10.1-14.3) L 05/03/18 04:53 Hct 29.2 % (30.3-42.9) L 05/03/18 04:53 MCV 99 fl (79-97) H 05/03/18 04:53 MCH 32 pg (28-32) 05/03/18 04:53 MCHC 32 % (30-34) 05/03/18 04:53 RDW 16.2 % (13.2-15.2) H 05/03/18 04:53 Plt Count 235 K/mm3 (140-440) 05/03/18 04:53 Lymph % (Auto) 10.5 % (13.4-35.0) L 04/25/18 04:26 [place] % (Auto) 4.5 % (0.0-7.3) 04/25/18 04:26 Eos % (Auto) 1.2 % (0.0-4.3) 04/25/18 04:26 Baso % (Auto) 0.6 % (0.0-1.8) 04/25/18 04:26 Lymph # 1.1 K/mm3 (1.2-5.4) L 04/25/18 04:26 [place] # 0.5 K/mm3 (0.0-0.8) 04/25/18 04:26 Eos # 0.1 K/mm3 (0.0-0.4) 04/25/18 04:26 Baso # 0.1 K/mm3 (0.0-0.1) 04/25/18 04:26 Seg Neutrophils % 83.2 % (40.0-70.0) H 04/25/18 04:26 Seg Neutrophils # 8.5 K/mm3 (1.8-7.7) H 04/25/18 04:26 PT 14.3 Sec. (12.2-14.9) 04/13/18 13:41 INR 1.07 (0.87-1.13) 04/13/18 13:41 APTT 28.9 Sec. (24.2-36.6) 04/13/18 13:41 Thrombin Time 17.3 Sec. (15.1-19.6) 04/13/18 13:41 POC ABG pH 7.308 (7.35-7.45) L 04/17/18 20:40 POC ABG pCO2 31.3 (35-45) L 04/17/18 20:40 POC ABG pO2 61 (80-105) L 04/17/18 20:40 POC ABG HCO3 15.7 04/17/18 20:40 POC ABG Total CO2 17 04/17/18 20:40 POC ABG O2 Sat 89 04/17/18 20:40 POC ABG Base Excess -11 04/17/18 20:40 FiO2 30 % 04/17/18 20:40 Sodium 140 mmol/L (137-145) 05/08/18 05:38 Potassium 4.5 mmol/L (3.6-5.0) 05/08/18 05:38 Chloride 103.4 mmol/L (98-107) 05/08/18 05:38 Carbon Dioxide 26 mmol/L (22-30) 05/08/18 05:38 Anion Gap 15 mmol/L 05/08/18 05:38 BUN 33 mg/dL (7-17) H 05/08/18 05:38 Creatinine 2.7 mg/dL (0.7-1.2) H 05/08/18 05:38 Estimated GFR 19 ml/min 05/08/18 05:38 BUN/Creatinine Ratio 12 % 05/08/18 05:38 Glucose 132 mg/dL (65-100) H 05/08/18 05:38 POC Glucose 149 (70-105) H 05/08/18 11:07 Hemoglobin A1c 6.2 % (4-6) H 05/08/18 08:19 Lactic Acid 1.10 mmol/L (0.7-2.0) 04/13/18 16:23 Calcium 7.2 mg/dL (8.4-10.2) L 05/08/18 05:38 Phosphorus 3.10 mg/dL (2.5-4.5) 04/22/18 10:20 Magnesium 1.70 mg/dL (1.7-2.3) 04/26/18 15:25 Total Bilirubin 0.60 mg/dL (0.1-1.2) 04/14/18 08:01 Direct Bilirubin 0.2 mg/dL (0-0.2) 04/13/18 13:59 Indirect Bilirubin 0.3 mg/dL 04/13/18 13:59 AST 14 units/L (5-40) 04/14/18 08:01 ALT 7 units/L (7-56) 04/14/18 08:01 Alkaline Phosphatase 106 units/L (35-129) 04/14/18 08:01 Ammonia 47.0 umol/L (25-60) 04/16/18 11:17 Total Creatine Kinase 92 units/L (30-135) 04/13/18 13:59 CK-MB (CK-2) 3.7 ng/mL (0.0-4.0) 04/13/18 13:59 CK-MB (CK-2) Rel Index 4.0 (0-4) 04/13/18 13:59 Troponin T 0.010 ng/mL (0.00-0.029) 04/13/18 13:59 NT-Pro-B Natriuret Pep 09608 pg/mL (0-450) H 04/13/18 13:59 Serum Total Protein 5.6 g/dL (6.1-8.1) L 04/15/18 03:17 Total Protein 6.0 g/dL (6.3-8.2) L 04/14/18 08:01 Albumin 2.4 g/dL (3.8-4.8) L 04/15/18 03:17 Albumin/Globulin Ratio 0.8 % 04/14/18 08:01 Uvgpv-9-[id number] 0.4 g/dL (0.2-0.3) H 04/15/18 03:17 [id number]-1-[id number] 0.9 g/dL (0.5-0.9) 04/15/18 03:17 Beta Globulins 0.4 g/dL (0.2-0.5) 04/15/18 03:17 Gamma Globulins 1.2 g/dL (0.8-1.7) 04/15/18 03:17 Abnorm Protein Band 1 see below 04/15/18 03:17 PEP Interpretation see below H 04/15/18 03:17 Lipase 44 units/L (13-60) 04/13/18 13:59 Urine Color Diaen (Yellow) 04/13/18 14:26 Urine Turbidity Cloudy (Clear) 04/13/18 14:26 Urine pH 5.0 (5.0-7.0) 04/13/18 14:26 Ur Specific [place] 1.017 (1.003-1.030) 04/13/18 14:26 Urine Protein >500 mg/dL (Negative) 04/13/18 14:26 Urine Glucose (UA) >=500 mg/dL (Negative) 04/13/18 14:26 Urine Ketones Neg mg/dL (Negative) 04/13/18 14:26 Urine Blood Neg (Negative) 04/13/18 14:26 Urine Nitrite Neg (Negative) 04/13/18 14:26 Urine Bilirubin Neg (Negative) 04/13/18 14:26 Urine Urobilinogen < 2.0 mg/dL (<2.0) 04/13/18 14:26 Ur Leukocyte Esterase Neg (Negative) 04/13/18 14:26 Urine WBC (Auto) 22.0 /HPF (0.0-6.0) H 04/13/18 14:26 Urine RBC (Auto) 17.0 /HPF (0.0-6.0) 04/13/18 14:26 U Epithel Cells (Auto) 3.0 /HPF (0-13.0) 04/13/18 14:26 Urine Bacteria (Auto) 4+ /HPF (Negative) 04/13/18 14:26 Urine Mucus Few /HPF 04/13/18 14:26 Urine Yeast (Budding) 3+ /HPF 04/13/18 14:26 Urine Eosinophils 7% (None Seen) 04/14/18 11:23 Urine Total Volume 800 ml 04/30/18 10:10 Urine Creatinine 96.4 mg/dL (0.1-20.0) H 04/30/18 10:10 Height (in) 68.0 inches 04/30/18 10:10 Weight (lb) 173.0 lbs 04/30/18 10:10 Creatinine Clearance 10 04/30/18 10:10 Protein/Creatinin Ratio 1.78 04/14/18 11:23 Urine Sodium 82 mmol/L 04/14/18 11:23 Fraction Sodium Excret 2.3 04/14/18 11:23 Urine Total Protein 152 mg/dL (5-11.8) H 04/14/18 11:23 Urine Opiates Screen Presumptive negative 04/13/18 14:26 Urine Methadone Screen Presumptive negative 04/13/18 14:26 Ur Barbiturates Screen Presumptive negative 04/13/18 14:26 Levetiracetam 37.6 mcg/mL 04/13/18 19:19 Ur Phencyclidine Scrn Presumptive negative 04/13/18 14:26 Ur Amphetamines Screen Presumptive negative 04/13/18 14:26 U Benzodiazepines Scrn Presumptive negative 04/13/18 14:26 Urine Cocaine Screen Presumptive negative 04/13/18 14:26 U Marijuana (THC) Screen Presumptive negative 04/13/18 14:26 Drugs of Abuse Note Disclamer 04/13/18 14:26 Proteinase 3 (PR3) Ab <1.0 AI (<1.0) 04/14/18 11:56 Myeloperoxidase Ab <1.0 AI (<1.0) 04/14/18 11:56 Double Strand DNA Ab <1 IU/mL (<=4) 04/14/18 11:56 Complement C3 155 mg/dL (83-193) 04/14/18 11:56 Complement C4 28 mg/dL (15-57) 04/14/18 11:56 Hepatitis A IgM Ab Non-reactive (NonReactive) 04/14/18 11:56 Hep Bs Antigen Non-reactive (Negative) 04/14/18 11:56 Hep B Core IgM Ab Non-reactive (NonReactive) 04/14/18 11:56 Hepatitis C Antibody Non-reactive (NonReactive) 04/14/18 11:56 Nutrition/Malnutrition Assess - Dietary Evaluation Nutrition/Malnutrition Findings: Nutrition Notes Start: 04/14/18 09:47 Freq: Status: Active Protocol: Document 05/07/18 14:57 RM (Rec: 05/07/18 15:03 RM [id number]) Nutrition Notes Initial or Follow up Brief Note Current Diet Renal,Consistent Carb,Cardiac [place] Body Weight (kg) 0 Subjective/Other Information Pt not in room at time of visit. Per nurse pt eats 50% of her meals. Noted one unopened [place] in room. Nutrition Intervention Follow-Up By: 05/10/18 Additional Comments Follow for PO and ONS intakes
[2018-05-08] MEDS: LANTUS SUB-Q SCH (23:00)
[2018-05-09] MEDS: APRESOLINE IV PRN (01:02)
[2018-05-09 06:05] LABS: Calcium 7.2 mg/dL (8.4-10.2)
[2018-05-09] MEDS: HumuLIN R SUB-Q SCH ×3 (07:30→17:44)
[2018-05-09] MEDS: DUONEB *Not for PRN Use IH SCH ×3 (08:39→19:22)
--- NOTE | 2018-05-09 09:36 | Discharge Summary ---
Providers - Providers Date of Admission: 04/13/18 14:57 Attending physician: SIL OVIEDO MD 04/13/18 13:43 Consult to Dietitian/Nutrition [CONS] Routine Physician Instructions: Reason For Exam: Reason for Consult: Evaluate nutritional intake 04/13/18 15:53 Consult to Physician [CONS] Routine Comment: Corazon MOSCOSO notified @ 16:02- LXM Consulting Provider: MATT SAPP Physician Instructions: Reason For Exam: vent management 04/13/18 17:49 Consult to Physician [CONS] Routine Comment: Consulting Provider: KARUNA BUSTAMANTE Physician Instructions: Reason For Exam: ckd4 04/14/18 12:08 Consult to Wound/ET Nurse [CONS] Routine Reason For Exam: wound eval; duran to lower extremities 04/17/18 16:05 Consult to Physician [CONS] Routine Comment: Consulting Provider: WENDI ALLEN Physician Instructions: Reason For Exam: seizure 04/18/18 11:17 Consult to Physician [CONS] Urgent Comment: Consulting Provider: SHERIE DEY Physician Instructions: Reason For Exam: CAP/HAP 04/20/18 14:06 Consult to Physician [CONS] Routine Comment: Consulting Provider: SOL SABA Physician Instructions: Reason For Exam: need vas cath for emergency HD 04/22/18 10:48 Physical Therapy Evaluation and Treat [CONS] Routine Comment: Reason For Exam: Debility 04/22/18 16:57 Physical Therapy Evaluation and Treat [CONS] Routine Comment: Reason For Exam: ataxia 04/25/18 14:06 Consult to Physician [CONS] Routine Comment: Consulting Provider: SOL SABA Physician Instructions: Reason For Exam: permacath placement Primary care physician: MEDICAL RECORDS MANAGER Hospitalization Reason for admission: ESRD on HD, seizure disorder, respitory failure, AMS Condition: Stable Pertinent studies: CT head Chest x-ray Procedures: Perm cath placement Hospital course: 42 YO Female with HTN, Systolic CHF(EF 20%), CVA, DM, Seizure Disorder, COPD, Pulmonary HTN, CAD S/P Stent Placement presents to ED for evaluation. Pt is intubated and unable to provide history at time of exam. history taken from EMS. As per EMS, they were notified for Chest pain. Upon arrival the patient was found to have a witnessed seizure. Pt was treated with Ativan and subsequently transported to [facility] for further care and evaluation. Pt seen and evaluated in ED and found to have respiratory distress, and is unable to protect her airway. Pt intubate and placed on vent support for Acute Respiratory Failure. Pt also found to have CHF decompensation. Pt admitted to ICU. Pulmonary consulted in ED, Cardiology consulted in ED. During the course of the hospitalization the Patient was noted to have BLAS and started on Dialysis and nephrology was consulted, diagnosed with ESRD and O/p dialysis arranged at the time of discharge . Patient was intubated duet o respiratory failure and subsequently extubated and saturating well on room air. Systolic CHF exacerbation cardiology consulted and managed appropriately and improved. Will continue to take her home medications. Diabetes mellitus on insulin and will continue insulin at home. Metabolic encephalopathy resolved. Seizures resolved and she will continue with keppra. Patient was hemodynamically stable at the time of discharge. Nephrology and cardiology change cleared for discharge. Disposition: DC/TX- HOME UNDER [facility] Time spent for discharge: 32 minutes - Discharge Diagnoses (1) ESRD (end stage renal disease) on dialysis Status: Acute (2) Acute and chronic respiratory failure ([id number]) Status: Acute (3) CHF (congestive heart failure) Status: Acute Qualifiers: Heart failure type: systolic Heart failure chronicity: acute on chronic Qualified Code(s): I50.23 - Acute on chronic systolic (congestive) heart failure (4) Diabetes type 2, controlled Status: Acute Qualifiers: Diabetes mellitus emt intermediate insulin use: with alf use Diabetes mellitus complication status: with kidney complications Diabetes mellitus complication detail: with chronic kidney disease Chronic kidney disease stage: stage 4 (severe) Qualified Code(s): E11.22 - Type 2 diabetes mellitus with diabetic chronic kidney disease; N18.4 - Chronic kidney disease, stage 4 (severe); Z79.4 - detention (current) use of insulin Core Measure Documentation - Palliative Care Palliative Care/ Comfort Measures: Not Applicable - Core Measures Any of the following diagnoses?: heart failure - Heart Failure Discharge Requirements TEOFILO/ARB for LVSD if EF <40%: No Reason for no TEOFILO/ARB: Renal impairment Beta natividad at discharge: Yes Exam - Physical Exam Narrative exam: Not in cardiopulmonary distress. The patient appeared well nourished and normally developed. Vital signs as documented. Head exam is unremarkable. No scleral icterus . Neck is without jugular venous distension, thyromegaly, or carotid bruits. Lungs are clear to auscultation. Cardiac exam reveals regular rate and Rhythm. First and second heart sounds normal. No murmurs, rubs or gallops. Abdominal exam reveals normal bowel sounds, no masses, no organomegaly and no aortic enlargement. Extremities are nonedematous and both femoral and pedal pulses are normal. [employer]: Alert and oriented 3. No focal weakness. - Constitutional Vitals: Temp Pulse Resp BP Pulse Ox 97.6 F 81 20 117/74 98 05/09/18 05:11 05/09/18 08:40 05/09/18 08:40 05/09/18 05:11 05/09/18 05:11 Plan Activity: no restrictions Weight Bearing Status: Full Weight Bearing Diet: low salt, diabetic, renal Follow up with: JESSICA IRVIN MD [Staff Physician] - 7 Days ANGELES LEVINE MD [Staff Physician] - 7 Days MARINA SANCHEZ MD [Staff Physician] - 7 Days PRIMARY CAREMD [Primary Care Provider] - 3-5 Days NEMO GREEN MD [Staff Physician] - 7 Days Prescriptions: Prednisone [predniSONE 5 mg (6-Day Pack, 21 Tabs)] 5 mg PO .TAPER #1 tab.ds.pk
[2018-05-09] MEDS ORDERED: NACL 0.9 (PRIMING MACHINE ONLY DIALYSIS) MC ONE (11:54)
[2018-05-09] MEDS: PROCRIT IV PRN (12:58)
[2018-05-09] MEDS: NORMODYNE PO SCH (14:07)
[2018-05-09] MEDS: KEPPRA PO SCH (14:08)
[2018-05-09] MEDS: ELIQUIS FEEDTUBE SCH (14:08)
[2018-05-09] MEDS: SODIUM CHLORIDE FLUSH SYRINGE 10 ML IV SCH (14:08)
[2018-05-09] MEDS: DELTASONE PO SCH (14:08)
[2018-05-09] MEDS: PEPCID PO SCH (14:08)
--- NOTE | 2018-05-09 14:32 | Progress Note ---
Assessment and Plan impression * ESRD * Respiratory failure secondary to pulmonary infiltrates * Asp PNA * Hypertension * Seizure disorder * Pulmonary hypertension * COPD * Metabolic Acidosis * History of CVA Recommendations * HD qTTHSAT * Patient baseline serum creatinine appears to be in the 3-4 range * cr continues to rise--crcl is 10ml/min with 800ml uop * Continue loop diuretics as needed * added sodium bicarbonate * Avoid nephrotoxins * Monitor fluid status and electrolytes closely * Renal ultrasound showing bilateral nonobstructing stones * [facility] confirmed outpatient hd unit placement * ok to dc home Subjective Date of service: 05/09/18 Principal diagnosis: Acute respiratory failure, secondary to seizure episode. Chronic kidney di Interval history: resting well in bed today Objective - Exam Narrative Exam: General appearance: well-developed, well-nourished, appears stated age, intubated EENT: PERRL, mucous membranes moist Neck: no JVD, no thyromegaly Respiratory: Present: Clear to Ascultation Cardiology: regular, normal heart rate, S1S2, no murmurs Gastrointestinal: normal, normoactive bowel sounds Integumentary: other (no edema) - Vital Signs Vital signs: Vital Signs - 12hr 05/09/18 05/09/18 05/09/18 03:10 05:11 08:40 Temperature 97.6 F Pulse Rate 84 Pulse Rate [ 81 Anterior Bilateral Throughout] Pulse Rate [ 81 Bilateral] Respiratory 18 Rate Respiratory 20 Rate [Anterior Bilateral Throughout] Respiratory 20 Rate [Bilateral ] Blood Pressure 133/85 117/74 O2 Sat by Pulse 98 Oximetry 05/09/18 05/09/18 05/09/18 09:00 10:05 10:15 Temperature 97.8 F Pulse Rate 84 86 Pulse Rate [ Anterior Bilateral Throughout] Pulse Rate [ 88 Bilateral] Respiratory 16 Rate Respiratory Rate [Anterior Bilateral Throughout] Respiratory 20 Rate [Bilateral ] Blood Pressure 132/84 134/69 O2 Sat by Pulse Oximetry 05/09/18 05/09/18 05/09/18 10:30 10:45 11:00 Temperature Pulse Rate 92 H 86 88 Pulse Rate [ Anterior Bilateral Throughout] Pulse Rate [ Bilateral] Respiratory Rate Respiratory Rate [Anterior Bilateral Throughout] Respiratory Rate [Bilateral ] Blood Pressure 135/81 130/65 129/66 O2 Sat by Pulse Oximetry 05/09/18 05/09/18 05/09/18 11:15 11:30 11:45 Temperature Pulse Rate 91 H 88 86 Pulse Rate [ Anterior Bilateral Throughout] Pulse Rate [ Bilateral] Respiratory Rate Respiratory Rate [Anterior Bilateral Throughout] Respiratory Rate [Bilateral ] Blood Pressure 117/75 132/79 125/66 O2 Sat by Pulse Oximetry 05/09/18 05/09/18 05/09/18 12:00 12:15 12:30 Temperature Pulse Rate 80 74 85 Pulse Rate [ Anterior Bilateral Throughout] Pulse Rate [ Bilateral] Respiratory Rate Respiratory Rate [Anterior Bilateral Throughout] Respiratory Rate [Bilateral ] Blood Pressure 120/72 124/72 120/66 O2 Sat by Pulse Oximetry 05/09/18 05/09/18 05/09/18 12:45 13:00 13:10 Temperature 98.1 F Pulse Rate 81 83 87 Pulse Rate [ Anterior Bilateral Throughout] Pulse Rate [ Bilateral] Respiratory 16 Rate Respiratory Rate [Anterior Bilateral Throughout] Respiratory Rate [Bilateral ] Blood Pressure 112/67 130/68 124/72 O2 Sat by Pulse Oximetry 05/09/18 05/09/18 14:20 14:28 Temperature Pulse Rate Pulse Rate [ 86 84 Anterior Bilateral Throughout] Pulse Rate [ 84 Bilateral] Respiratory Rate Respiratory 18 18 Rate [Anterior Bilateral Throughout] Respiratory 18 Rate [Bilateral ] Blood Pressure O2 Sat by Pulse Oximetry - Lab 05/03/18 04:53 05/09/18 05:19 Most recent lab results Calcium 7.2 mg/dL (8.4-10.2) L 05/09/18 05:19 Phosphorus 3.10 mg/dL (2.5-4.5) 04/22/18 10:20 Magnesium 1.70 mg/dL (1.7-2.3) 04/26/18 15:25 Urine Creatinine 96.4 mg/dL (0.1-20.0) H 04/30/18 10:10 Urine Sodium 82 mmol/L 04/14/18 11:23 Urine Total Protein 152 mg/dL (5-11.8) H 04/14/18 11:23 Medications & Allergies - Medications Allergies/Adverse Reactions: Allergies No Known Allergies Allergy (Verified 04/17/18 10:03) Home Medications: Home Medications Medication Instructions Recorded Confirmed Last Taken Type Aspirin EC [Aspirin Enteric Coated 81 mg PO QDAY #30 tablet 07/22/17 04/23/18 02/17/18 Rx TAB] 81mg Labetalol [Normodyne TAB] 200 mg PO BID #60 tablet 12/04/17 05/04/18 Unknown Rx amLODIPine [Norvasc] 10 mg PO QDAY #30 tablet 12/04/17 04/23/18 Unknown Rx Apixaban [Eliquis] 2.5 mg PO BID 60 Days tablet 02/22/18 04/23/18 Unknown Rx AtorvaSTATin [Lipitor] 20 mg PO QHS #30 tablet 02/22/18 04/23/18 Unknown Rx Insulin Glargine,Hum.rec.anlog 20 unit SQ QHS #30 insuln.pen 02/22/18 04/23/18 Unknown Rx [Lantus Solostar] Lispro Insulin [Humalog] 0 unit SUB-Q ACHS units 02/22/18 04/23/18 Unknown Rx levETIRAcetam [Keppra TAB] 500 mg PO BID #90 tablet 02/22/18 04/23/18 Unknown Rx hydrALAZINE [Apresoline TAB] 100 mg PO TID 04/23/18 04/23/18 Unknown History Prednisone [predniSONE 5 mg (6-Day 5 mg PO .TAPER #1 tab.ds.pk 04/29/18 Unknown Rx Pack, 21 Tabs)] Active Medications: Generic Name Dose Route Start Last Admin Trade Name Freq PRN Reason Stop Dose Admin Albuterol 2.5 mg 04/13/18 14:57 Proventil IH Q3H PRN Shortness Of Breath Albuterol/Ipratropium 1 ampul 04/23/18 20:00 05/09/18 14:20 Duoneb *Not For Prn Use* IH 1 ampul TIDRT CECILE Administration Apixaban 2.5 mg 04/14/18 18:00 05/09/18 14:08 Eliquis FEEDTUBE 2.5 mg Q12HR CECILE Administration Protocol Atorvastatin Calcium 20 mg 04/23/18 22:00 05/08/18 21:47 Lipitor PO 20 mg QHS CECILE Administration Benzocaine/Menthol 1 each 04/23/18 08:51 Cepacol X Strength MM Q1HR PRN Sore Throat Dextrose 50 ml 04/14/18 19:05 04/18/18 00:15 D50w (25gm) Syringe IV 50 ml PRN PRN Administration Hypoglycemia Epoetin Kofi 10,000 unit 04/29/18 06:00 01/31/19 12:58 Procrit IV 10,000 unit MIRI PRN Administration hemodialysis Famotidine 20 mg 04/15/18 10:00 05/09/18 14:08 Pepcid PO 20 mg DAILY CECILE Administration Hydralazine HCl 10 mg 04/14/18 16:15 05/09/18 01:02 Apresoline IV 10 mg Q4HR PRN Administration SBP >150 or DBP >90 Hydrophilic Ointment 1 applic 04/13/18 13:43 Vaseline Lip Therapy TP Q2HR PRN Dry Lips Sodium Chloride 100 mls @ 999 mls/hr 05/04/18 10:57 Nacl 0.9% IV MIRI PRN Hypotension Insulin Glargine 10 units 05/01/18 22:00 05/08/18 23:00 Lantus SUB-Q 10 units QHS CECILE Administration Insulin Human Regular 0 units 04/26/18 07:30 05/09/18 12:25 Humulin R SUB-Q Not Given ACHS [facility] Protocol Labetalol HCl 200 mg 04/28/18 10:00 05/09/18 14:07 Normodyne PO 200 mg BID CECILE Administration Levetiracetam 500 mg 05/08/18 22:00 05/09/18 14:08 Keppra PO 500 mg BID CECILE Administration Multi-Ingred Cream/Lotion/Oil/Oint 1 applic 04/13/18 13:43 Artificial Tears Ophth Oint OU Q4HR PRN Dry Eye(s) Prednisone 20 mg 04/28/18 10:00 05/09/18 14:08 Deltasone PO 20 mg QDAY CECILE Administration Sodium Chloride 10 ml 04/13/18 22:00 05/09/18 14:08 Sodium Chloride Flush Syringe 10 Ml IV 10 ml BID CECILE Administration Sodium Chloride 10 ml 04/13/18 14:57 04/17/18 05:42 Sodium Chloride Flush Syringe 10 Ml IV 10 ml PRN PRN Administration LINE FLUSH
[2018-05-09 19:17] VITALS: BP 123/82
== END 2018-05-09 21:00 | disposition home health service (06) | DRG 207 ==
LOC: ED 13:27 → MERGE 14:57 → CC1 14:57 → 4A 04-23 18:38 → 3A 04-30 15:04
PROVIDERS: ADMIT Internal Medicine; ATTEND Internal Medicine
PROC: 5A1955Z Respiratory Ventilation, Greater than 96 Consecutive Hours (ICD-10-PCS; principal; 2018-04-13)
PROC: 0BH18EZ Insertion of Endotracheal Airway into Trachea, Via Natural or Artificial Opening Endoscopic (ICD-10-PCS; 2018-04-13)
PROC: 4A033R1 Measurement of Arterial Saturation, Peripheral, Percutaneous Approach (ICD-10-PCS; 2018-04-13)
PROC: 5A1D70Z Performance of Urinary Filtration, Intermittent, Less than 6 Hours Per Day (ICD-10-PCS; 2018-04-20)
PROC: 02HV33Z Insertion of Infusion Device into Superior Vena Cava, Percutaneous Approach (ICD-10-PCS; 2018-04-20)
PROC: 5A1D70Z Performance of Urinary Filtration, Intermittent, Less than 6 Hours Per Day (ICD-10-PCS; 2018-04-22)
PROC: 5A09357 Assistance with Respiratory Ventilation, Less than 24 Consecutive Hours, Continuous Positive Airway Pressure (ICD-10-PCS; 2018-04-22)
PROC: 5A09357 Assistance with Respiratory Ventilation, Less than 24 Consecutive Hours, Continuous Positive Airway Pressure (ICD-10-PCS; 2018-04-23)
PROC: 0JH63XZ Insertion of Tunneled Vascular Access Device into Chest Subcutaneous Tissue and Fascia, Percutaneous Approach (ICD-10-PCS; 2018-04-25)
PROC: 02H633Z Insertion of Infusion Device into Right Atrium, Percutaneous Approach (ICD-10-PCS; 2018-04-25)
PROC: B2141ZZ Fluoroscopy of Right Heart using Low Osmolar Contrast (ICD-10-PCS; 2018-04-25)
PROC: B244YZZ Ultrasonography of Right Heart using Other Contrast (ICD-10-PCS; 2018-04-25)
PROC: 5A1D70Z Performance of Urinary Filtration, Intermittent, Less than 6 Hours Per Day (ICD-10-PCS; 2018-04-26)
PROC: 5A1D70Z Performance of Urinary Filtration, Intermittent, Less than 6 Hours Per Day (ICD-10-PCS; 2018-04-29)
PROC: 5A1D70Z Performance of Urinary Filtration, Intermittent, Less than 6 Hours Per Day (ICD-10-PCS; 2018-05-01)
PROC: 5A1D70Z Performance of Urinary Filtration, Intermittent, Less than 6 Hours Per Day (ICD-10-PCS; 2018-05-04)
PROC: 5A1D70Z Performance of Urinary Filtration, Intermittent, Less than 6 Hours Per Day (ICD-10-PCS; 2018-05-07)
PROC: 5A1D70Z Performance of Urinary Filtration, Intermittent, Less than 6 Hours Per Day (ICD-10-PCS; 2018-05-09)
DX: J96.21 Acute and chronic respiratory failure with hypoxia (principal); N17.0 Acute kidney failure with tubular necrosis; I50.23 Acute on chronic systolic (congestive) heart failure; J69.0 Pneumonitis due to inhalation of food and vomit; G93.41 Metabolic encephalopathy; I25.10 Atherosclerotic heart disease of native coronary artery without angina pectoris; I13.2 Hypertensive heart and chronic kidney disease with heart failure and with stage 5 chronic kidney disease, or end stage renal disease; E11.22 Type 2 diabetes mellitus with diabetic chronic kidney disease; I25.2 Old myocardial infarction; T24.209A Burn of second degree of unspecified site of unspecified lower limb, except ankle and foot, initial encounter; N39.0 Urinary tract infection, site not specified; I27.20 Pulmonary hypertension, unspecified; E87.2 Acidosis; I25.5 Ischemic cardiomyopathy; I48.0 Paroxysmal atrial fibrillation; G40.911 Epilepsy, unspecified, intractable, with status epilepticus; I45.10 Unspecified right bundle-branch block; E87.6 Hypokalemia; D68.59 Other primary thrombophilia; D63.1 Anemia in chronic kidney disease; D62 Acute posthemorrhagic anemia; E11.649 Type 2 diabetes mellitus with hypoglycemia without coma; E83.51 Hypocalcemia; Z91.14 Patient's other noncompliance with medication regimen; Z79.4 Long term (current) use of insulin; Z86.73 Personal history of transient ischemic attack (TIA), and cerebral infarction without residual deficits; Z98.41 Cataract extraction status, right eye; Z98.42 Cataract extraction status, left eye; Z95.5 Presence of coronary angioplasty implant and graft; E11.319 Type 2 diabetes mellitus with unspecified diabetic retinopathy without macular edema; N18.6 End stage renal disease
CPT/HCPCS: 36415; 36558; 36600; 70450; 71045; 71250; 72125; 74018; 76770; 77001; 80048; 80053; 80074; 80076; 80177; 80307; 81001; 82140; 82550; 82553; 82565; 82570; 82575; 82803; 82947; 82962; 83036; 83690; 83735; 83880; 84100; 84156; 84165; 84295; 84300; 84484; 85007; 85025; 85027; 85610; 85670; 85730; 86021; 86160; 86225; 87040; 87070; 87086; 87205; 89050; 90686; 93005; 93010; 94003; 94640; 94660; 94760; 96374; 96375; 99284; 99292; G0378; A9270-GY; C1750; J0295; J0330; J0360; J0456; J0690; J0696; J0885; J1644; J1815; J1940; J1953; J2060; J2250; J2704; J3010; J3480; J7030; J7040; J7050; J7070; J7512

== ENCOUNTER 2018-05-09 21:48 | Emergency (ER) | payer MEDICAID ==
[2018-05-09 23:19] LABS: Hematocrit 31.7 % (30.3-42.9); Hemoglobin 10.2 gm/dl (10.1-14.3); Mean Corpuscular HGB Conc 32 % (30-34); Mean Corpuscular Volume 98 fl (79-97); Platelet Count 176 K/mm3 (140-440); Red Blood Count 3.24 M/mm3 (3.65-5.03)
[2018-05-09 23:29] LABS: INR 1.25 (0.87-1.13)
[2018-05-09 23:30] LABS: Partial Thromboplastin Time 30.7 Sec. (24.2-36.6)
[2018-05-09 23:40] LABS: Albumin 3.2 g/dL (3.9-5); Calcium 7.5 mg/dL (8.4-10.2); Creatine Kinase MB 3.4 ng/mL (0.0-4.0)
--- NOTE | 2018-05-09 23:47 | Emergency Department Report ---
HPI - General Chief Complaint: Weakness Time Seen by Provider: 05/09/18 22:37 - HPI HPI: Room 4 The patient is a 42-year-old female presenting with chief complaint weakness. The patient was discharged this evening from this hospital after an extensive s stephany secondary to respiratory failure, seizures and acute renal failure. Family states they picked the patient up at 20:001 at Home the patient attempted to walk up her stairs felt weak and fell backwards landing on the ground. There is no loss of consciousness. Patient denied preceding shortness of breath or chest pain. While at rest in the ED the patient denies complaints. Location: [See above] Duration: [See above] Quality: Weakness Severity: [See above] Modifying factors: [see above] Context: [see above] Mode of transportation: [not driving] ED Past Medical Hx - Past Medical History Hx Hypertension: Yes Hx CVA: Yes Hx Heart Attack/AMI: Yes Hx Congestive Heart Failure: Yes Hx Diabetes: Yes Hx Seizures: Yes (New onset x last 4 months) Hx COPD: Yes Additional medical history: Atrial fibrillation on Eliquis. Pulmonary hype rtension and dilated right atrium or neck. Left ventricular function within normal limits.Patient says she is on stage 4 of renal failure.But not on dialysis. legally blind - Surgical History Additional Surgical History: Bilateral cataracts and laser surgery for diabetic retinopathy with residual decreased vision in the left eye even prior to today. - Family History Family history: no significant - Social History Smoking Status: Former Smoker (none 6 years) Substance Use Type: None (denies illicit drug use) - Medications Home Medications: Home Medications Medication Instructions Recorded Confirmed Last Taken Type Aspirin EC [Aspirin Enteric Coated 81 mg PO QDAY #30 tablet 07/22/17 04/23/18 02/17/18 Rx TAB] 81mg Labetalol [Normodyne TAB] 200 mg PO BID #60 tablet 12/04/17 05/04/18 Unknown Rx amLODIPine [Norvasc] 10 mg PO QDAY #30 tablet 12/04/17 04/23/18 Unknown Rx Apixaban [Eliquis] 2.5 mg PO BID 60 Days tablet 02/22/18 04/23/18 Unknown Rx AtorvaSTATin [Lipitor] 20 mg PO QHS #30 tablet 02/22/18 04/23/18 Unknown Rx Insulin Glargine,Hum.rec.anlog 20 unit SQ QHS #30 insuln.pen 02/22/18 04/23/18 Unknown Rx [Lantus Solostar] Lispro Insulin [Humalog] 0 unit SUB-Q ACHS units 02/22/18 04/23/18 Unknown Rx levETIRAcetam [Keppra TAB] 500 mg PO BID #90 tablet 02/22/18 04/23/18 Unknown Rx hydrALAZINE [Apresoline TAB] 100 mg PO TID 04/23/18 04/23/18 Unknown History Prednisone [predniSONE 5 mg (6-Day 5 mg PO .TAPER #1 tab.ds.pk 04/29/18 Unknown Rx Pack, 21 Tabs)] ED Review of Systems ROS: Stated complaint: WEAKNESS Other details as noted in HPI Constitutional: weakness Eyes: denies: eye pain ENT: denies: throat pain Respiratory: no symptoms reported Cardiovascular: denies: chest pain Endocrine: no symptoms reported Gastrointestinal: denies: abdominal pain Musculoskeletal: denies: back pain Neurological: denies: headache Physical Exam - Physical Exam Vital Signs: Vital Signs 05/09/18 05/09/18 05/09/18 22:12 22:32 23:38 Temperature 97.5 F L 97.7 F Pulse Rate 95 H 91 H Pulse Rate [ 85 Lying] Pulse Rate [ 94 H Sitting] Pulse Rate [ 94 H Standing] Respiratory 16 14 Rate Blood Pressure 116/68 Blood Pressure 133/83 [Left] Blood Pressure 130/86 [Lying] Blood Pressure 126/78 [Sitting] Blood Pressure 115/66 [Standing] O2 Sat by Pulse 99 100 Oximetry Physical Exam: GENERAL: The patient is well-developed well-nourished female lying on stretcher not appearing to be in acute distress. [] HEENT: Normocephalic. Atraumatic. Extraocular motions are intact. Patient has moist mucous membranes. NECK: Supple. No axial step offs CHEST/LUNGS: Clear to auscultation. There is no respiratory distress noted. HEART/CARDIOVASCULAR: Regular. There is no tachycardia. There is a 3/6 systolic murmur (patient states she's been told she had a murmur in the past) ABDOMEN: Abdomen is soft, nontender. Patient has normal bowel sounds. There is no abdominal distention. SKIN: There is no rash. There is no edema. There is no diaphoresis. NEURO: The patient is awake, alert, and oriented. The patient is cooperative. The patient has no focal neurologic deficits. The patient has normal speech. Cranial nerves II through XII grossly intact, no drift. Moves all extremity is well MUSCULOSKELETAL: There is no evidence of acute injury. ED Course Vital Signs 05/09/18 05/09/18 05/09/18 22:12 22:32 23:38 Temperature 97.5 F L 97.7 F Pulse Rate 95 H 91 H Pulse Rate [ 85 Lying] Pulse Rate [ 94 H Sitting] Pulse Rate [ 94 H Standing] Respiratory 16 14 Rate Blood Pressure 116/68 Blood Pressure 133/83 [Left] Blood Pressure 130/86 [Lying] Blood Pressure 126/78 [Sitting] Blood Pressure 115/66 [Standing] O2 Sat by Pulse 99 100 Oximetry - Reevaluation(s) Reevaluation #1: 05/10/18 00:34 Patient remains asymptomatic. Will ambulate patient to see how she feels and reassess Reevaluation #2: 05/10/18 00:58 Patient ambulates without incident. Patient states she feels comfortable going home. Strong warnings to return should she develop any symptoms ED Medical Decision Making - Lab Data Result diagrams: 05/09/18 22:54 05/09/18 22:54 - Radiology Data Radiology results: report reviewed (CT head, CT cervical spine), image reviewed (CT head, CT cervical spine) [facility] [address] [place] [address] Cat Scan Report Signed Patient: JOHN DELUCA MR#: [id number] : 1975 Acct:[id number] Age/Sex: 42 / F ADM Date: 05/09/18 Loc: ED Attending Dr: Ordering Physician: OMAYRA BARKER MD Date of Service: 05/09/18 Procedure(s): CT head/brain wo con Accession Number(s): [id number] cc: OMAYRA BARKER MD FINAL REPORT EXAM: CT HEAD/BRAIN WO CON HISTORY: fall backwards from steps TECHNIQUE: Routine axial imaging was obtained of the brain without IV contrast. Comparison is made to the study of 12/01/2017. FINDINGS: There are remote infarcts in both occipital lobes, the right larger than the left. There is age related volume loss. There is diminished attenuation of the periventricular white matter compatible with chronic ischemic white matter disease changes. There is no evidence of acute stroke or hemorrhage. The ventricular system is appropriate in size. The visualized sinuses are clear. The mastoid air cells are well pneumatized. The calvarium appears intact. IMPRESSION: No evidence of acute stroke or hemorrhage. Remote infarcts in both occipital lobes with chronic ischemic white matter disease changes. Transcribed By: RB Dictated By: JESU THOMSON MD Electronically Authenticated By: JESU THOMSON MD Signed Date/Time: 05/10/187 DD/ TD/TT: 05/10/185 [facility] [address] [place] [address] Cat Scan Report Signed Patient: JOHN DELUCA MR#: [id number] : 1975 Acct:[id number] Age/Sex: 42 / F ADM Date: 05/09/18 Loc: ED Attending Dr: Ordering Physician: OMAYRA BARKER MD Date of Service: 05/09/18 Procedure(s): CT cervical spine wo con Accession Number(s): [id number] cc: OMAYRA BARKER MD FINAL REPORT EXAM: CT CERVICAL SPINE WO CON HISTORY: fall backwards from steps TECHNIQUE: Routine axial imaging was obtained of the cervical spine without IV contrast with sagittal and coronal reconstructions. FINDINGS: There is mild narrowing of the C5-C6 disc. The remaining disc heights and alignment appear normal. The canal size is normal. There is no evidence of fracture. The facet joints are well maintained. The pre vertebral soft tissues and C1-C2 articulation otherwise appear intact. IMPRESSION: Mild arthritic changes of the C5-C6 level. No acute injury. Transcribed By: RB Dictated By: JESU THOMSON MD Electronically Authenticated By: JESU THOMSON MD Signed Date/Time: 05/10/188 DD/ TD/TT: 05/10/187 - Differential Diagnosis weakness, orthostasis, symptomatic anemia Critical care attestation.: If time is entered above; I have spent that time in minutes in the direct care o f this critically ill patient, excluding procedure time. ED Disposition Clinical Impression: Fall Disposition: - TO HOME OR SELFCARE Is pt being admited?: No Does the pt Need Aspirin: No Condition: Stable Additional Instructions: Return to the emergency department immediately should you develop worsening symptoms, fever, inability to tolerate food or liquid or any other concerns. Referrals: JAMES GRAHAM DO [Primary Care Provider] - 3-5 Days Time of Disposition: 01:00
--- NOTE | 2018-05-10 00:08 | Cat Scan Report ---
FINAL REPORT EXAM: CT HEAD/BRAIN WO CON HISTORY: fall backwards from steps TECHNIQUE: Routine axial imaging was obtained of the brain without IV contrast. Comparison is made t o the study of 12/01/2017. FINDINGS: There are remote infarcts in both occipital lobes, the right larger than the left. There is age relat ed volume loss. There is diminished attenuation of the periventricular white matter compatible with c hronic ischemic white matter disease changes. There is no evidence of acute stroke or hemorrhage. The ventricular system is appropriate in size. The visualized sinuses are clear. The mastoid air cells a re well pneumatized. The calvarium appears intact. IMPRESSION: No evidence of acute stroke or hemorrhage. Remote infarcts in both occipital lobes with chronic ischemic white matter disease changes.
--- NOTE | 2018-05-10 00:09 | Cat Scan Report ---
FINAL REPORT EXAM: CT CERVICAL SPINE WO CON HISTORY: fall backwards from steps TECHNIQUE: Routine axial imaging was obtained of the cervical spine without IV contrast with sagitta l and coronal reconstructions. FINDINGS: There is mild narrowing of the C5-C6 disc. The remaining disc heights and alignment appear normal. Th e canal size is normal. There is no evidence of fracture. The facet joints are well maintained. The p re vertebral soft tissues and C1-C2 articulation otherwise appear intact. IMPRESSION: Mild arthritic changes of the C5-C6 level. No acute injury.
[2018-05-10 00:17] VITALS: BP 133/83
[2018-05-10 00:53] LABS: Anisocytosis 1+; Band Neutrophils # (Manual) 0.1 K/mm3; Basophils % (Manual) 0 % (0.0-1.8); Eosinophils % (Manual) 0 % (0.0-4.3); Hypochromasia 1+; Total Cells Counted 100
== END 2018-05-10 01:32 | disposition home or self-care (01) ==
LOC: ED 21:48
DX: M54.2 Cervicalgia (principal); R51 Headache; R56.9 Unspecified convulsions; I13.0 Hypertensive heart and chronic kidney disease with heart failure and stage 1 through stage 4 chronic kidney disease, or unspecified chronic kidney disease; N18.4 Chronic kidney disease, stage 4 (severe); E11.22 Type 2 diabetes mellitus with diabetic chronic kidney disease; J44.9 Chronic obstructive pulmonary disease, unspecified; I48.91 Unspecified atrial fibrillation; Z87.891 Personal history of nicotine dependence; Z79.82 Long term (current) use of aspirin; Z79.4 Long term (current) use of insulin; W10.8XXA Fall (on) (from) other stairs and steps, initial encounter; Y93.89 Activity, other specified; Y92.89 Other specified places as the place of occurrence of the external cause; Y99.8 Other external cause status
CPT/HCPCS: 36415; 70450; 72125; 80053; 82550; 82553; 83735; 84484; 85007; 85025; 85610; 85730; 93005; 93010; 99284

== ENCOUNTER 2018-08-03 14:15 | Emergency (ER) | payer MEDICAID ==
[2018-08-03 14:22] VITALS: BP 157/101
[2018-08-03 15:16] LABS: Hemoglobin 13.2 gm/dl (10.1-14.3); Mean Corpuscular HGB Conc 33 % (30-34); Mean Corpuscular Volume 99 fl (79-97); Platelet Count 181 K/mm3 (140-440); Red Blood Count 4.04 M/mm3 (3.65-5.03); Red Cell Distribution Width 15.3 % (13.2-15.2)
[2018-08-03 16:26] LABS: Calcium 9.3 mg/dL (8.4-10.2)
== END 2018-08-03 18:50 | disposition left against medical advice (07) ==
LOC: ED 14:15
DX: N28.9 Disorder of kidney and ureter, unspecified (principal); Z53.21 Procedure and treatment not carried out due to patient leaving prior to being seen by health care provider
CPT/HCPCS: 36415; 80053; 85027

== ENCOUNTER 2018-08-05 13:35 | Inpatient (IN) | payer MEDICAID ==
--- NOTE | 2018-08-05 14:01 | Emergency Department Report ---
Chief Complaint: Altered Mental Status Stated Complaint: AMS/MISSED DIALYSIS Time Seen by Provider: 08/05/18 13:59 - HPI History of Present Illness: pt has not been to dialysis since july 27 pt is supposed to go to dialysis T//S states the van did not pick her up pt has SOB, generalized weakness PMHx COPD, DM, HTN, blindness MSE screening note: Focused history performed Due to findings the following was ordered: CXR, labs
[2018-08-05 14:23] LABS: Basophils % (Auto) 0.8 % (0.0-1.8); Eosinophils # (Auto) 0.1 K/mm3 (0.0-0.4); Eosinophils % (Auto) 1.9 % (0.0-4.3); Hematocrit 35.8 % (30.3-42.9); Hemoglobin 11.7 gm/dl (10.1-14.3); Lymphocytes # (Auto) 0.9 K/mm3 (1.2-5.4); Lymphocytes % (Auto) 21.4 % (13.4-35.0); Mean Corpuscular HGB Conc 33 % (30-34); Mean Corpuscular Volume 99 fl (79-97); Monocytes # (Auto) 0.2 K/mm3 (0.0-0.8); Monocytes % (Auto) 4.4 % (0.0-7.3); Platelet Count 182 K/mm3 (140-440); Red Blood Count 3.63 M/mm3 (3.65-5.03); Red Cell Distribution Width 15.3 % (13.2-15.2)
[2018-08-05 14:42] LABS: Albumin 3.4 g/dL (3.9-5); Calcium 8.9 mg/dL (8.4-10.2)
[2018-08-05 17:01] LABS: HCG Qualitative,Urine Negative (Negative)
[2018-08-05 17:05] LABS: Bacteria,Urine 1+ /HPF (Negative); Bilirubin,Urine NEG (Negative); Blood,Urine SM (Negative); Color,Urine Yellow (Yellow); Mucus,Urine FEW /HPF; Urobilinogen,Urine < 2.0 mg/dL (<2.0)
--- NOTE | 2018-08-05 18:12 | Emergency Department Report ---
ED General Adult HPI - General Chief complaint: Altered Mental Status Stated complaint: AMS/MISSED DIALYSIS Time Seen by Provider: 08/05/18 13:59 Source: patient Mode of arrival: Ambulatory Limitations: No Limitations - History of Present Illness Initial comments: Patient presents to the emergency department with a chief complaint of shortness of breath. Patient states her last dialysis treatment was on July 27. Patient to ED for dialysis. Patient denies chest pain, abdominal pain, headache. -: Gradual Severity scale (0 -10): 0 Consistency: constant Improves with: none Worsens with: none Associated Symptoms: denies other symptoms Treatments Prior to Arrival: none - Related Data Home Medications Medication Instructions Recorded Confirmed Last Taken hydrALAZINE [Apresoline TAB] 100 mg PO TID 04/23/18 04/23/18 Unknown Previous Rx's Medication Instructions Recorded Last Taken Type Aspirin EC [Aspirin Enteric Coated 81 mg PO QDAY #30 tablet 07/22/17 02/17/18 Rx TAB] 81mg Labetalol [Normodyne TAB] 200 mg PO BID #60 tablet 12/04/17 Unknown Rx amLODIPine [Norvasc] 10 mg PO QDAY #30 tablet 12/04/17 Unknown Rx Apixaban [Eliquis] 2.5 mg PO BID 60 Days tablet 02/22/18 Unknown Rx AtorvaSTATin [Lipitor] 20 mg PO QHS #30 tablet 02/22/18 Unknown Rx Insulin Glargine,Hum.rec.anlog 20 unit SQ QHS #30 insuln.pen 02/22/18 Unknown Rx [Lantus Solostar] Lispro Insulin [Humalog] 0 unit SUB-Q ACHS units 02/22/18 Unknown Rx levETIRAcetam [Keppra TAB] 500 mg PO BID #90 tablet 02/22/18 Unknown Rx Prednisone [predniSONE 5 mg (6-Day 5 mg PO .TAPER #1 tab.ds.pk 04/29/18 Unknown Rx Pack, 21 Tabs)] Allergies Allergy/AdvReac Type Severity Reaction Status Date / Time No Known Allergies Allergy Verified 08/05/18 13:36 ED Review of Systems ROS: Stated complaint: AMS/MISSED DIALYSIS Other details as noted in HPI Comment: All other systems reviewed and negative Constitutional: denies: chills, fever Eyes: denies: eye pain, eye discharge, vision change ENT: denies: ear pain, throat pain Respiratory: denies: cough, shortness of breath, wheezing Cardiovascular: denies: chest pain, palpitations Endocrine: no symptoms reported Gastrointestinal: denies: abdominal pain, nausea, diarrhea Genitourinary: denies: urgency, dysuria, discharge Musculoskeletal: denies: back pain, joint swelling, arthralgia Skin: denies: rash, lesions Neurological: denies: headache, weakness, paresthesias Psychiatric: denies: anxiety, depression Hematological/Lymphatic: denies: easy bleeding, easy bruising ED Past Medical Hx - Past Medical History Hx Hypertension: Yes Hx CVA: Yes Hx Heart Attack/AMI: Yes Hx Congestive Heart Failure: Yes Hx Diabetes: Yes Hx Deep Vein Thrombosis: No Hx Pulmonary Embolism: No Hx GERD: No Hx Liver Disease: No Hx Renal Disease: No Hx Sickle Cell Disease: No Hx Arthritis: No Hx Headaches / Migraines: No Hx Seizures: Yes Hx Kidney Stones: No Hx Psychiatric Treatment: No Hx Asthma: No Hx COPD: Yes Hx Tuberculosis: No Hx Dementia: No Additional medical history: Atrial fibrillation. legally blind - Surgical History Hx Coronary Stent: No Hx Pacemaker: No Hx Internal Defibrillator: No Additional Surgical History: Bilateral cataracts and laser surgery for diabetic retinopathy with residual decreased vision in the left eye even prior to today. - Social History Smoking Status: Former Smoker Substance Use Type: None - Medications Home Medications: Home Medications Medication Instructions Recorded Confirmed Last Taken Type Aspirin EC [Aspirin Enteric Coated 81 mg PO QDAY #30 tablet 07/22/17 04/23/18 02/17/18 Rx TAB] 81mg Labetalol [Normodyne TAB] 200 mg PO BID #60 tablet 12/04/17 05/04/18 Unknown Rx amLODIPine [Norvasc] 10 mg PO QDAY #30 tablet 12/04/17 04/23/18 Unknown Rx Apixaban [Eliquis] 2.5 mg PO BID 60 Days tablet 02/22/18 04/23/18 Unknown Rx AtorvaSTATin [Lipitor] 20 mg PO QHS #30 tablet 02/22/18 04/23/18 Unknown Rx Insulin Glargine,Hum.rec.anlog 20 unit SQ QHS #30 insuln.pen 02/22/18 04/23/18 Unknown Rx [Lantus Solostar] Lispro Insulin [Humalog] 0 unit SUB-Q ACHS units 02/22/18 04/23/18 Unknown Rx levETIRAcetam [Keppra TAB] 500 mg PO BID #90 tablet 02/22/18 04/23/18 Unknown Rx hydrALAZINE [Apresoline TAB] 100 mg PO TID 04/23/18 04/23/18 Unknown History Prednisone [predniSONE 5 mg (6-Day 5 mg PO .TAPER #1 tab.ds.pk 04/29/18 Unknown Rx Pack, 21 Tabs)] ED Physical Exam - General Limitations: No Limitations General appearance: alert, in no apparent distress - Head Head exam: Present: atraumatic, normocephalic - Eye Eye exam: Present: normal appearance - ENT ENT exam: Present: mucous membranes moist - Neck Neck exam: Present: normal inspection - Respiratory Respiratory exam: Present: normal lung sounds bilaterally, rales. Absent: respiratory distress - Cardiovascular Cardiovascular Exam: Present: regular rate, normal rhythm. Absent: systolic murmur, diastolic murmur, rubs, gallop - GI/Abdominal GI/Abdominal exam: Present: soft, normal bowel sounds. Absent: distended, tenderness - Extremities Exam Extremities exam: Present: normal inspection - Back Exam Back exam: Present: normal inspection - Neurological Exam Neurological exam: Present: alert, oriented X3, CN II-XII intact. Absent: motor sensory deficit - Psychiatric Psychiatric exam: Present: normal affect, normal mood - Skin Skin exam: Present: warm, dry, intact, normal color. Absent: rash ED Course Vital Signs 08/05/18 13:59 Temperature 97.3 F L Pulse Rate 110 H Respiratory 20 Rate Blood Pressure 135/87 O2 Sat by Pulse 98 Oximetry ED Medical Decision Making - Lab Data Result diagrams: 08/05/18 14:05 08/05/18 14:05 Lab Results 08/05/18 08/05/18 08/05/18 Range/Units 14:05 14:05 14:05 WBC 4.3 L (4.5-11.0) K/mm3 RBC 3.63 L (3.65-5.03) M/mm3 Hgb 11.7 (10.1-14.3) gm/dl Hct 35.8 (30.3-42.9) % MCV 99 H (79-97) fl MCH 32 (28-32) pg MCHC 33 (30-34) % RDW 15.3 H (13.2-15.2) % Plt Count 182 (140-440) K/mm3 Lymph % (Auto) 21.4 (13.4-35.0) % [place] % (Auto) 4.4 (0.0-7.3) % Eos % (Auto) 1.9 (0.0-4.3) % Baso % (Auto) 0.8 (0.0-1.8) % Lymph # 0.9 L (1.2-5.4) K/mm3 [place] # 0.2 (0.0-0.8) K/mm3 Eos # 0.1 (0.0-0.4) K/mm3 Baso # 0.0 (0.0-0.1) K/mm3 Seg Neutrophils % 71.5 H (40.0-70.0) % Seg Neutrophils # 3.1 (1.8-7.7) K/mm3 Sodium 138 (137-145) mmol/L Potassium 4.3 (3.6-5.0) mmol/L Chloride 104.8 (98-107) mmol/L Carbon Dioxide 16 L (22-30) mmol/L Anion Gap 22 mmol/L BUN 57 H (7-17) mg/dL Creatinine 5.1 H (0.7-1.2) mg/dL Estimated GFR 9 ml/min BUN/Creatinine Ratio 11 % Glucose 185 H (65-100) mg/dL Calcium 8.9 (8.4-10.2) mg/dL Phosphorus 6.40 H (2.5-4.5) mg/dL Magnesium 1.80 (1.7-2.3) mg/dL Total Bilirubin 0.50 (0.1-1.2) mg/dL AST 13 (5-40) units/L ALT 9 (7-56) units/L Alkaline Phosphatase 135 H (35-129) units/L Ammonia 71.0 H (25-60) umol/L NT-Pro-B Natriuret Pep 54509 H (0-450) pg/mL Total Protein 6.8 (6.3-8.2) g/dL Albumin 3.4 L (3.9-5) g/dL Albumin/Globulin Ratio 1.0 % Urine Color (Yellow) Urine Turbidity (Clear) Urine pH (5.0-7.0) Ur Specific [place] (1.003-1.030) Urine Protein (Negative) mg/dL Urine Glucose (UA) (Negative) mg/dL Urine Ketones (Negative) mg/dL Urine Blood (Negative) Urine Nitrite (Negative) Ur Reducing Substances Urine Bilirubin (Negative) Urine Ictotest Urine Urobilinogen (<2.0) mg/dL Ur Leukocyte Esterase (Negative) Urine WBC (Auto) (0.0-6.0) /HPF Urine RBC (Auto) (0.0-6.0) /HPF U Epithel Cells (Auto) (0-13.0) /HPF Urine Bacteria (Auto) (Negative) /HPF Urine Mucus /HPF Urine HCG, Qual (Negative) 08/05/18 Range/Units 16:46 WBC (4.5-11.0) K/mm3 RBC (3.65-5.03) M/mm3 Hgb (10.1-14.3) gm/dl Hct (30.3-42.9) % MCV (79-97) fl MCH (28-32) pg MCHC (30-34) % RDW (13.2-15.2) % Plt Count (140-440) K/mm3 Lymph % (Auto) (13.4-35.0) % [place] % (Auto) (0.0-7.3) % Eos % (Auto) (0.0-4.3) % Baso % (Auto) (0.0-1.8) % Lymph # (1.2-5.4) K/mm3 [place] # (0.0-0.8) K/mm3 Eos # (0.0-0.4) K/mm3 Baso # (0.0-0.1) K/mm3 Seg Neutrophils % (40.0-70.0) % Seg Neutrophils # (1.8-7.7) K/mm3 Sodium (137-145) mmol/L Potassium (3.6-5.0) mmol/L Chloride (98-107) mmol/L Carbon Dioxide (22-30) mmol/L Anion Gap mmol/L BUN (7-17) mg/dL Creatinine (0.7-1.2) mg/dL Estimated GFR ml/min BUN/Creatinine Ratio % Glucose (65-100) mg/dL Calcium (8.4-10.2) mg/dL Phosphorus (2.5-4.5) mg/dL Magnesium (1.7-2.3) mg/dL Total Bilirubin (0.1-1.2) mg/dL AST (5-40) units/L ALT (7-56) units/L Alkaline Phosphatase (35-129) units/L Ammonia (25-60) umol/L NT-Pro-B Natriuret Pep (0-450) pg/mL Total Protein (6.3-8.2) g/dL Albumin (3.9-5) g/dL Albumin/Globulin Ratio % Urine Color Yellow (Yellow) Urine Turbidity Clear (Clear) Urine pH 6.0 (5.0-7.0) Ur Specific [place] 1.015 (1.003-1.030) Urine Protein 100 mg/dl (Negative) mg/dL Urine Glucose (UA) 150 (Negative) mg/dL Urine Ketones Neg (Negative) mg/dL Urine Blood Sm (Negative) Urine Nitrite Neg (Negative) Ur Reducing Substances Not Reportable Urine Bilirubin Neg (Negative) Urine Ictotest Not Reportable Urine Urobilinogen < 2.0 (<2.0) mg/dL Ur Leukocyte Esterase Neg (Negative) Urine WBC (Auto) 9.0 H (0.0-6.0) /HPF Urine RBC (Auto) 76.0 (0.0-6.0) /HPF U Epithel Cells (Auto) 2.0 (0-13.0) /HPF Urine Bacteria (Auto) 1+ (Negative) /HPF Urine Mucus Few /HPF Urine HCG, Qual Negative (Negative) - Radiology Data Radiology results: report reviewed - Medical Decision Making results discussed with patient Consulted Dr. Saldana patient will be admitted Critical care attestation.: If time is entered above; I have spent that time in minutes in the direct care of this critically ill patient, excluding procedure time. ED Disposition Clinical Impression: Volume overload, ESRD (end stage renal disease) on dialysis, Hyperammonemia Disposition: OP ADMIT IP TO THIS HOSP Is pt being admited?: Yes Does the pt Need Aspirin: No Condition: Fair Referrals: MARINA SANCHEZ MD [Primary Care Provider] - 3-5 Days
[2018-08-05] MEDS ORDERED: CEPHULAC PO ONE (18:18)
--- NOTE | 2018-08-05 18:29 | XRay Report ---
PROCEDURE: XR CHEST ROUTINE 2V HISTORY: SOB, hx of COPD/CKD upt FINDINGS: Frontal and lateral views the chest were acquired and compared to the prior examination of April. There is cardiomegaly unchanged. There is left midlung linear scar versus atelectasis. There is no ev idence of congestive heart failure. There is a right-sided catheter with tip in the right atrium. The re is no pneumothorax. IMPRESSION: Stable cardiomegaly This document is electronically signed by Parmjit Crouch MD., August 05 2018 06:28:03 PM ET
--- NOTE | 2018-08-05 19:34 | Consultation ---
History of Present Illness - Reason for Consult end stage renal disease - History of Present Illness 43 year old lady with medical history signficant for HTN, DM type II, Peripheral vascular disease s/p stent placement, End stage renal disease on hemodialysis Sunday, , sunday at [facility] via a Right IJ Perm cath presenting to the ER having missed dialysis since August 06 . she reports exertional dyspnea. She denies any orthopnea or PND. She denies any abdominal pain ,fever or chills. She denies any cough or sick contacts. She reports she did not have a ride for the past few days hence missed dialysis. Medications and Allergies Allergies Allergy/AdvReac Type Severity Reaction Status Date / Time No Known Allergies Allergy Verified 08/05/18 13:36 Home Medications Medication Instructions Recorded Confirmed Last Taken Type Aspirin EC [Aspirin Enteric Coated 81 mg PO QDAY #30 tablet 07/22/17 04/23/18 02/17/18 Rx TAB] 81mg Labetalol [Normodyne TAB] 200 mg PO BID #60 tablet 12/04/17 05/04/18 Unknown Rx amLODIPine [Norvasc] 10 mg PO QDAY #30 tablet 12/04/17 04/23/18 Unknown Rx Apixaban [Eliquis] 2.5 mg PO BID 60 Days tablet 02/22/18 04/23/18 Unknown Rx AtorvaSTATin [Lipitor] 20 mg PO QHS #30 tablet 02/22/18 04/23/18 Unknown Rx Insulin Glargine,Hum.rec.anlog 20 unit SQ QHS #30 insuln.pen 02/22/18 04/23/18 Unknown Rx [Lantus Solostar] Lispro Insulin [Humalog] 0 unit SUB-Q ACHS units 02/22/18 04/23/18 Unknown Rx levETIRAcetam [Keppra TAB] 500 mg PO BID #90 tablet 02/22/18 04/23/18 Unknown Rx hydrALAZINE [Apresoline TAB] 100 mg PO TID 04/23/18 04/23/18 Unknown History Prednisone [predniSONE 5 mg (6-Day 5 mg PO .TAPER #1 tab.ds.pk 04/29/18 Unknown Rx Pack, 21 Tabs)] Review of Systems Constitutional: weight gain Ears, nose, mouth and throat: no ear pain, no ear discharge Cardiovascular: no chest pain, no orthopnea Respiratory: cough, shortness of breath, dyspnea on exertion Gastrointestinal: no abdominal pain, no nausea, no vomiting Musculoskeletal: no neck stiffness, no neck pain Integumentary: no deferred, no rash Psychiatric: no anxiety, no memory loss Endocrine: no cold intolerance, no heat intolerance Hematologic/Lymphatic: no easy bruising Allergic/Immunologic: no urticaria Exam - Vital Signs Vital signs: Vital Signs Temp Pulse Resp BP Pulse Ox 97.3 F L 110 H 20 135/87 98 08/05/18 13:59 08/05/18 13:59 08/05/18 13:59 08/05/18 13:59 08/05/18 13:59 - General Appearance General appearance: well-developed, well-nourished EENT: ATNC, PERRL, mucous membranes moist, mucous membranes dry Neck: Present: neck supple Respiratory: Clear to Ascultation Heart: regular, S1S2 Gastrointestinal: Present: normal, normoactive bowel sounds Integumentary: no rash Neurologic: no focal deficit, alert and oriented x3, CN 3-12 intact Psychiatric: mood/affect appropriate Results - Lab Results 08/05/18 14:05 08/05/18 14:05 Most recent lab results Calcium 8.9 mg/dL (8.4-10.2) 08/05/18 14:05 Phosphorus 6.40 mg/dL (2.5-4.5) H 08/05/18 14:05 Magnesium 1.80 mg/dL (1.7-2.3) 08/05/18 14:05 - Image Kidney/bladder ultrasound: other (I reviewed CXR with patchy opacities noted. ) Assessment and Plan - Patient Problems (1) ESRD (end stage renal disease) on dialysis Current Visit: Yes Status: Acute Plan to address problem: End stage renal disease access: Right IJ cath needs dressing on catheter site Will initiate HD. (2) Volume overload Current Visit: Yes Status: Acute Plan to address problem: Mild Volume overload - CXR with some mild congestion - Will initiate HD (3) Acidosis Current Visit: No Status: Acute Plan to address problem: Metabolic Acidosis - 2/2 missed dialysis Will initiate HD (4) Diabetes mellitus type 1, uncontrolled Current Visit: No Status: Acute Plan to address problem: DM type I uncontrolled Ensure medications Monitor fingerstick.
[2018-08-05] MEDS ORDERED: PERCOCET 5/325 PO PRN (22:18)
[2018-08-05] MEDS ORDERED: ZOFRAN IV PRN (22:18)
[2018-08-05] MEDS ORDERED: DILAUDID IV PRN (22:18)
[2018-08-05] MEDS ORDERED: TYLENOL PO PRN (22:18)
[2018-08-05] MEDS ORDERED: SODIUM CHLORIDE FLUSH SYRINGE 10 ML IV PRN (22:18)
--- NOTE | 2018-08-05 22:22 | Event Note ---
Date: 08/05/18
[2018-08-06] MEDS: ELIQUIS PO SCH ×3 (00:20→22:38)
[2018-08-06 05:33] LABS: Basophils % (Auto) 1.2 % (0.0-1.8); Eosinophils # (Auto) 0.1 K/mm3 (0.0-0.4); Eosinophils % (Auto) 2.5 % (0.0-4.3); Hematocrit 34.5 % (30.3-42.9); Hemoglobin 11.6 gm/dl (10.1-14.3); Lymphocytes # (Auto) 1.1 K/mm3 (1.2-5.4); Lymphocytes % (Auto) 30.1 % (13.4-35.0); Mean Corpuscular HGB Conc 34 % (30-34); Mean Corpuscular Volume 98 fl (79-97); Monocytes # (Auto) 0.2 K/mm3 (0.0-0.8); Monocytes % (Auto) 6.5 % (0.0-7.3); Platelet Count 168 K/mm3 (140-440); Red Blood Count 3.52 M/mm3 (3.65-5.03); Red Cell Distribution Width 15.3 % (13.2-15.2)
[2018-08-06 05:58] LABS: Albumin 3.3 g/dL (3.9-5); Calcium 8.7 mg/dL (8.4-10.2)
[2018-08-06] MEDS: HumaLOG SUB-Q SCH ×4 (07:39→22:42)
--- NOTE | 2018-08-06 08:09 | History and Physical Report ---
CHIEF COMPLAINT: Shortness of breath for 1 day. HISTORY OF PRESENT ILLNESS: A 43-year-old female, missed dialysis on Sunday, which is 3 days ago. Last dialysis was on 07/27/2018. No dialysis for the last 9 days. Comes in for increasing shortness of breath and orthopnea, shortness of breath on minimal exertion. PAST MEDICAL HISTORY: Significant for hypertension, atrial fibrillation, insulin-dependent diabetes, seizure disorder. PAST SURGICAL HISTORY: Significant for bilateral cataracts and laser surgery for diabetic retinopathy, residual decreased vision in the left eye. Also, AV fistula. SOCIAL HISTORY: Former smoker. FAMILY HISTORY: Hypertension. CURRENT MEDICATIONS: Insulin Lantus 20 units at nighttime, Humalog a.c. and at bedtime, Keppra 500 b.i.d., hydralazine 100 mg 3 times a day, labetalol 200 mg twice a day. REVIEW OF SYSTEMS: Significant for increasing shortness of breath and orthopnea. Missed dialysis. PHYSICAL EXAMINATION: GENERAL: Middle-aged female, cooperative during examination. VITAL SIGNS: Blood pressure is 149/107, temperature is 98, pulse is 90, respirations 18, sats are 96%. HEENT: Unremarkable. Pupils equal and reactive. NECK: Supple, no lymphadenopathy, no thyromegaly. LUNGS: Clear to auscultation and percussion. Good air entry. CARDIOVASCULAR SYSTEM: S1, S2 heard. No gallop, no murmur, no rub. Apical impulse in left fifth intercostal space in midclavicular line. ABDOMEN: Soft and benign. No hepatosplenomegaly. No guarding, no rigidity. Hernial orifices are normal. EXTREMITIES: Good pedal pulses. No pedal edema. CENTRAL NERVOUS SYSTEM: Alert and oriented x 4, nonfocal exam. SKIN: Normal. DIAGNOSTIC DATA: Chest x-ray shows stable cardiomegaly. LABORATORY DATA: Significant for white count of 4300, H and H 11.7 and 35.8, platelet count of 182,000. Potassium is 4.3. Sodium is 138. BUN and creatinine is 22 and 5.7. Alkaline phosphatase is 135. Ammonia level is 71. BNP is 38,213. Urine WBC 9.0. ASSESSMENT AND PLAN: 1. Congestive heart failure exacerbation secondary to diastolic failure. The patient to get emergent hemodialysis. Nephrology consulted. 2. Atrial fibrillation. The patient to continue Eliquis 2.5 b.i.d. 3. Hypertension. Continue labetalol, amlodipine, and monitor blood pressure q. shift. 4. Insulin-dependent diabetes. Continue Lantus. 5. Seizure disorder. Continue Keppra. 6. Hyperammonemia. Etiology unclear. Will initiate lactulose. LFTs are normal. Alkaline phosphatase is slightly high. High BNP 38,213 secondary to diastolic failure. 7. Urinary tract infection, mild, started on Macrobid 100 b.i.d. 8. Deep venous thrombosis prophylaxis, heparin 5000 subQ q. 12. JOB# [id number] VSM/NTS
--- NOTE | 2018-08-06 09:51 | Progress Note ---
Subjective Interval history: Patient was seen today for follow-up on multiple renal related issues Events of this hospitalization noted Patient denies having any chest pain pressure or shortness of breath Vitals labs intake output medications were reviewed Social history: Reviewed Allergies: Reviewed Family history: Reviewed Physical examination HEENT: Oral mucosa moist no pallor or icterus Neck: Supple no JVD Central venous catheter site: Unremarkable Chest: Clear to auscultation anteriorly CVS: Regular rate and rhythm S1 and S2 heard Abdomen: Soft nontender no suprapubic masses no organomegaly appreciable Extremity: Dry skin less than 1+ peripheral edema Musculoskeletal: No joint effusion noted in knees and ankle Neurological: Alert awake Dermatology: No petechial rashes Psychiatry: No evidence of any agitation and aggression noted Assessment and plan End-stage renal disease: Patient is currently on maintenance hemodialysis Sunday schedule admitted here with shortness of breath fluid overload, patient noted to be noncompliant dialysis therapy,difficulty with transportation manager social work to follow She will continue with Sunday hemodialysis treatment while here Admitted with volume overload metabolic acidosis and noncompliance, Metabolic acidosis due to missing dialysis treatment Mild leukopenia needs follow-up platelet count normal hemoglobin normal Hyperphosphatemia 6.4 noncompliance counseled and educated will follow Multiple comorbidities including hypertension diabetes type 2 peripheral arterial disease status post stent placement Fluid overload patient advised to comply with treatment recommendation Current dialysis access is a right IJ central venous catheter Prognosis guarded to poor due to stage renal disease, multiple comorbidities as well as ongoing noncompliance Patient has been adequately counseled and educated regarding all the renal related issues Patient was adequately counseled and educated regarding multiple renal related issues Pertinent lab findings were discussed with patient, patient does exhibit good understanding of renal issues We'll continue to follow and make recommendation from renal standpoint Objective - Vital Signs Vital signs: Vital Signs - 12hr 08/05/18 08/06/18 08/06/18 22:00 00:00 01:10 Temperature Pulse Rate 88 84 100 H Respiratory 16 16 21 Rate Blood Pressure 149/107 Blood Pressure 145/97 [Left] O2 Sat by Pulse 99 99 98 Oximetry 08/06/18 08/06/18 08/06/18 01:16 01:30 01:46 Temperature Pulse Rate 94 H 101 H 98 H Respiratory 18 21 18 Rate Blood Pressure 149/107 149/107 149/107 Blood Pressure [Left] O2 Sat by Pulse 98 96 97 Oximetry 08/06/18 08/06/18 08/06/18 02:00 02:16 02:30 Temperature Pulse Rate 94 H 93 H 94 H Respiratory 18 17 16 Rate Blood Pressure 149/107 149/107 149/107 Blood Pressure [Left] O2 Sat by Pulse 96 96 96 Oximetry 08/06/18 08/06/18 08/06/18 02:46 03:00 03:16 Temperature Pulse Rate 96 H 98 H 97 H Respiratory 16 15 16 Rate Blood Pressure 149/107 149/107 149/107 Blood Pressure [Left] O2 Sat by Pulse 97 97 97 Oximetry 08/06/18 08/06/18 08/06/18 03:30 03:46 04:00 Temperature Pulse Rate 90 94 H 86 Respiratory 33 H 16 18 Rate Blood Pressure 149/107 149/107 149/107 Blood Pressure [Left] O2 Sat by Pulse 97 97 97 Oximetry 08/06/18 08/06/18 08/06/18 04:16 04:30 04:46 Temperature Pulse Rate 86 95 H 90 Respiratory 18 17 18 Rate Blood Pressure 149/107 149/107 149/107 Blood Pressure [Left] O2 Sat by Pulse 97 97 96 Oximetry 08/06/18 08/06/18 08/06/18 05:00 05:15 05:31 Temperature Pulse Rate 90 89 87 Respiratory 17 19 20 Rate Blood Pressure 149/107 139/89 139/89 Blood Pressure [Left] O2 Sat by Pulse 97 97 84 Oximetry 08/06/18 08/06/18 05:45 07:11 Temperature 97.5 F L Pulse Rate 101 H 92 H Respiratory 15 14 Rate Blood Pressure 139/89 Blood Pressure 127/79 [Left] O2 Sat by Pulse 100 Oximetry - Lab 08/06/18 05:17 08/06/18 05:17 Most recent lab results Calcium 8.7 mg/dL (8.4-10.2) 08/06/18 05:17 Phosphorus 6.40 mg/dL (2.5-4.5) H 08/05/18 14:05 Magnesium 1.80 mg/dL (1.7-2.3) 08/05/18 14:05 Medications & Allergies - Medications Allergies/Adverse Reactions: Allergies No Known Allergies Allergy (Verified 08/05/18 13:36) Home Medications: Home Medications Medication Instructions Recorded Confirmed Last Taken Type Aspirin EC [Aspirin Enteric Coated 81 mg PO QDAY #30 tablet 07/22/17 04/23/18 02/17/18 Rx TAB] 81mg Labetalol [Normodyne TAB] 200 mg PO BID #60 tablet 12/04/17 05/04/18 Unknown Rx amLODIPine [Norvasc] 10 mg PO QDAY #30 tablet 12/04/17 04/23/18 Unknown Rx Apixaban [Eliquis] 2.5 mg PO BID 60 Days tablet 02/22/18 04/23/18 Unknown Rx AtorvaSTATin [Lipitor] 20 mg PO QHS #30 tablet 02/22/18 04/23/18 Unknown Rx Insulin Glargine,Hum.rec.anlog 20 unit SQ QHS #30 insuln.pen 02/22/18 04/23/18 Unknown Rx [Lantus Solostar] Lispro Insulin [Humalog] 0 unit SUB-Q ACHS units 02/22/18 04/23/18 Unknown Rx levETIRAcetam [Keppra TAB] 500 mg PO BID #90 tablet 02/22/18 04/23/18 Unknown Rx hydrALAZINE [Apresoline TAB] 100 mg PO TID 04/23/18 04/23/18 Unknown History Prednisone [predniSONE 5 mg (6-Day 5 mg PO .TAPER #1 tab.ds.pk 04/29/18 Unknown Rx Pack, 21 Tabs)] Active Medications: Generic Name Dose Route Start Last Admin Trade Name Freq PRN Reason Stop Dose Admin Acetaminophen 650 mg 08/05/18 22:18 Tylenol PO Q4H PRN Pain MILD(1-3)/Fever >100.5/POWERS Amlodipine Besylate 10 mg 08/06/18 10:00 Norvasc PO QDAY [facility] Apixaban 2.5 mg 08/05/18 23:00 08/06/18 00:20 Eliquis PO 2.5 mg BID [facility] Administration Protocol Aspirin 81 mg 08/06/18 10:00 Halfprin Ec PO QDAY [facility] Atorvastatin Calcium 20 mg 08/06/18 22:00 Lipitor PO QHS [facility] Famotidine 10 mg 08/06/18 10:00 Pepcid PO BID [facility] Hydralazine HCl 100 mg 08/06/18 08:00 Apresoline PO TID [facility] Hydromorphone HCl 0.5 mg 08/05/18 22:18 Dilaudid IV Q3H PRN Pain , Severe (7-10) Insulin Glargine 20 units 08/06/18 22:00 Lantus SUB-Q QHS [facility] Insulin Human Lispro 0 unit 08/06/18 07:30 08/06/18 07:39 Humalog SUB-Q Not Given ACHS [facility] Protocol Labetalol HCl 200 mg 08/06/18 10:00 Normodyne PO BID [facility] Levetiracetam 500 mg 08/06/18 10:00 Keppra PO BID [facility] Ondansetron HCl 4 mg 08/05/18 22:18 Zofran IV Q8H PRN Nausea And Vomiting Oxycodone/Acetaminophen 1 tab 08/05/18 22:18 Percocet 5/325 PO Q6H PRN Pain, Moderate (4-6) Sodium Chloride 10 ml 08/06/18 10:00 Sodium Chloride Flush Syringe 10 Ml IV BID [facility] Sodium Chloride 10 ml 08/05/18 22:18 Sodium Chloride Flush Syringe 10 Ml IV PRN PRN LINE FLUSH
[2018-08-06] MEDS ORDERED: HEPARIN SUB-Q SCH (10:00)
[2018-08-06] MEDS ORDERED: NACL 0.9% 100 ML IV PRN (11:27)
[2018-08-06] MEDS ORDERED: NACL 0.9 (PRIMING MACHINE ONLY DIALYSIS) MC ONE (12:30)
[2018-08-06] MEDS: APRESOLINE PO SCH ×4 (13:48→22:52)
[2018-08-06] MEDS: NORVASC PO SCH (13:48)
[2018-08-06] MEDS: PEPCID PO SCH ×2 (13:48→22:38)
[2018-08-06] MEDS: HALFPRIN EC PO SCH (13:48)
[2018-08-06] MEDS: KEPPRA PO SCH ×2 (13:49→22:38)
[2018-08-06] MEDS: NORMODYNE PO SCH ×2 (13:50→22:52)
[2018-08-06] MEDS: SODIUM CHLORIDE FLUSH SYRINGE 10 ML IV SCH ×2 (13:53→22:42)
--- NOTE | 2018-08-06 15:51 | Progress Note ---
Assessment and Plan - Patient Problems (1) CHF exacerbation Current Visit: No Status: Acute Qualifiers: Qualified Code(s): I50.9 - Heart failure, unspecified Plan to address problem: Acute diastolic failure Emergent HD Volume overload (2) ESRD (end stage renal disease) on dialysis Current Visit: Yes Status: Chronic Plan to address problem: Non compliant Cont HD (3) Hyperammonemia Current Visit: Yes Status: Chronic Plan to address problem: On Lactulose (4) A-fib Current Visit: Yes Status: Chronic Qualifiers: Atrial fibrillation type: chronic Qualified Code(s): I48.2 - Chronic atrial fibrillation Plan to address problem: Cont Eliquis (5) HTN (hypertension) Current Visit: Yes Status: Chronic Qualifiers: Hypertension type: essential hypertension Qualified Code(s): I10 - Essential (primary) hypertension Plan to address problem: Cont antihypertensives (6) Seizure disorder Current Visit: Yes Status: Chronic Plan to address problem: Cont PO Keppra (7) IDDM (insulin dependent diabetes mellitus) Current Visit: Yes Status: Chronic Plan to address problem: Cont Home Insulin and coverage (8) UTI (urinary tract infection) Current Visit: Yes Status: Acute Qualifiers: Urinary tract infection type: acute cystitis Plan to address problem: on abx (9) DVT prophylaxis Current Visit: Yes Status: Acute Plan to address problem: On Heparin and Gi prophylaxis Subjective Date of service: 08/06/18 Principal diagnosis: CHF exacerbation Interval history: Symptomatically better Objective - Constitutional Vitals: Vital Signs - 12hr 08/06/18 08/06/18 08/06/18 04:00 04:16 04:30 Temperature Pulse Rate 86 86 95 H Respiratory 18 18 17 Rate Blood Pressure 149/107 149/107 149/107 Blood Pressure [Left] O2 Sat by Pulse 97 97 97 Oximetry 08/06/18 08/06/18 08/06/18 04:46 05:00 05:15 Temperature Pulse Rate 90 90 89 Respiratory 18 17 19 Rate Blood Pressure 149/107 149/107 139/89 Blood Pressure [Left] O2 Sat by Pulse 96 97 97 Oximetry 08/06/18 08/06/18 08/06/18 05:31 05:45 06:01 Temperature Pulse Rate 87 101 H 99 H Respiratory 20 15 17 Rate Blood Pressure 139/89 139/89 139/89 Blood Pressure [Left] O2 Sat by Pulse 84 Oximetry 08/06/18 08/06/18 08/06/18 06:11 06:21 06:30 Temperature Pulse Rate 94 H 90 95 H Respiratory 18 17 20 Rate Blood Pressure 139/89 139/89 149/107 Blood Pressure [Left] O2 Sat by Pulse 98 Oximetry 08/06/18 08/06/18 08/06/18 06:41 06:51 07:01 Temperature Pulse Rate 98 H 96 H 88 Respiratory 20 17 15 Rate Blood Pressure 139/89 139/89 139/89 Blood Pressure [Left] O2 Sat by Pulse Oximetry 08/06/18 08/06/18 08/06/18 07:11 07:25 07:31 Temperature 97.5 F L Pulse Rate 89 117 H 102 H Respiratory 19 26 H 17 Rate Blood Pressure 127/79 127/79 127/79 Blood Pressure 127/79 [Left] O2 Sat by Pulse 100 100 Oximetry 08/06/18 08/06/18 08/06/18 07:41 07:51 08:01 Temperature Pulse Rate 91 H 92 H 96 H Respiratory 22 20 22 Rate Blood Pressure 127/79 127/79 127/79 Blood Pressure [Left] O2 Sat by Pulse 99 99 98 Oximetry 08/06/18 08/06/18 08/06/18 08:11 08:21 08:31 Temperature Pulse Rate 92 H 89 92 H Respiratory 16 17 22 Rate Blood Pressure 127/79 127/79 127/79 Blood Pressure [Left] O2 Sat by Pulse 98 98 98 Oximetry 08/06/18 08/06/18 08/06/18 08:58 09:15 09:30 Temperature 97.6 F Pulse Rate 96 H 86 Respiratory 18 Rate Blood Pressure 136/95 156/92 146/102 Blood Pressure [Left] O2 Sat by Pulse Oximetry 08/06/18 08/06/18 08/06/18 09:55 10:00 10:15 Temperature Pulse Rate 66 66 86 Respiratory Rate Blood Pressure 146/80 138/80 150/92 Blood Pressure [Left] O2 Sat by Pulse Oximetry 08/06/18 08/06/18 08/06/18 10:30 10:45 11:00 Temperature Pulse Rate 90 86 90 Respiratory Rate Blood Pressure 142/88 154/92 146/90 Blood Pressure [Left] O2 Sat by Pulse Oximetry 08/06/18 08/06/18 08/06/18 11:15 11:30 11:45 Temperature Pulse Rate 86 88 84 Respiratory Rate Blood Pressure 156/92 156/90 158/100 Blood Pressure [Left] O2 Sat by Pulse Oximetry 08/06/18 08/06/18 08/06/18 12:00 13:02 13:48 Temperature 97.9 F Pulse Rate 88 103 H 103 H Respiratory 18 Rate Blood Pressure 154/96 145/86 145/86 Blood Pressure [Left] O2 Sat by Pulse 98 Oximetry 08/06/18 13:50 Temperature Pulse Rate 103 H Respiratory Rate Blood Pressure 145/86 Blood Pressure [Left] O2 Sat by Pulse Oximetry General appearance: Present: no acute distress, well-nourished - EENT Eyes: PERRL, EOM intact ENT: hearing intact, clear oral mucosa Ears: bilateral: normal - Neck Neck: supple, normal ROM - Respiratory Respiratory effort: normal Respiratory: bilateral: CTA - Breasts Breasts: normal - Cardiovascular Heart rate: 92 Rhythm: irregularly irregular Heart Sounds: Present: S1 & S2. Absent: gallop, rub Extremities: no ischemia, pulses intact, No edema, normal color, Full ROM - Gastrointestinal General gastrointestinal: Present: soft, non-tender, non-distended, normal bowel sounds - Genitourinary Female genitourinary: normal - Integumentary Integumentary: clear, warm, dry - Musculoskeletal Musculoskeletal: 1, strength equal bilaterally - Neurologic Neurologic: moves all extremities - Psychiatric Psychiatric: memory intact, appropriate mood/affect, intact judgment & insight - Labs CBC & Chem 7: 08/06/18 05:17 08/06/18 05:17 Labs: Abnormal lab results 08/05/18 08/05/18 08/05/18 Range/Units 14:05 14:05 16:46 WBC (4.5-11.0) K/mm3 RBC (3.65-5.03) M/mm3 MCV (79-97) fl MCH (28-32) pg RDW (13.2-15.2) % Lymph # (1.2-5.4) K/mm3 Chloride (98-107) mmol/L Carbon Dioxide (22-30) mmol/L BUN (7-17) mg/dL Creatinine (0.7-1.2) mg/dL Hemoglobin A1c 6.8 H (4-6) % NT-Pro-B Natriuret Pep 18466 H (0-450) pg/mL Albumin (3.9-5) g/dL Urine WBC (Auto) 9.0 H (0.0-6.0) /HPF 08/06/18 08/06/18 Range/Units 05:17 05:17 WBC 3.7 L (4.5-11.0) K/mm3 RBC 3.52 L (3.65-5.03) M/mm3 MCV 98 H (79-97) fl MCH 33 H (28-32) pg RDW 15.3 H (13.2-15.2) % Lymph # 1.1 L (1.2-5.4) K/mm3 Chloride 109.0 H (98-107) mmol/L Carbon Dioxide 17 L (22-30) mmol/L BUN 55 H (7-17) mg/dL Creatinine 5.0 H (0.7-1.2) mg/dL Hemoglobin A1c (4-6) % NT-Pro-B Natriuret Pep (0-450) pg/mL Albumin 3.3 L (3.9-5) g/dL Urine WBC (Auto) (0.0-6.0) /HPF - Imaging and cardiology EKG: report reviewed (Afib 92/min)
[2018-08-06] MEDS ORDERED: LANTUS SUB-Q SCH (22:00)
[2018-08-06] MEDS ORDERED: NON-FORMULARY (Insulin Glargine,Hum.Rec.Anlog [Lantus Solostar] 20 UNIT) SQ SCH (22:00)
[2018-08-07] MEDS: HumaLOG SUB-Q SCH ×3 (07:30→18:52)
[2018-08-07] MEDS: APRESOLINE PO SCH (08:00)
--- NOTE | 2018-08-07 08:48 | Progress Note ---
Subjective Interval history: Patient was seen today for follow-up on multiple renal related issues she is feeling much better would like to go home Vitals labs intake output medications were reviewed Social history: Reviewed Allergies: Reviewed Family history: Reviewed Physical examination HEENT: Oral mucosa moist no pallor or icterus Neck: Supple no JVD Central venous catheter site: Unremarkable Chest: Clear to auscultation anteriorly CVS: Regular rate and rhythm S1 and S2 heard Abdomen: Soft nontender no suprapubic masses no organomegaly appreciable Extremity: Dry skin less than 1+ peripheral edema Musculoskeletal: No joint effusion noted in knees and ankle Neurological: Alert awake Dermatology: No petechial rashes Psychiatry: No evidence of any agitation and aggression noted Assessment and plan End-stage renal disease: Patient is currently on hemodialysis, and will need to continue with hemodialysis on Sunday and Sunday schedule Noncompliance, missing treatment, consequences explained including mortality risk Hypertension: Reduce hydralazine to 25 mg 3 times a day set parameters for amlodipine, blood pressure was low today Anemia and end-stage renal disease: To monitor and follow Secondary hyperparathyroidism: Check phosphorus and PTH level periodically, binders as needed Dialysis access: Currently working well,Will need follow-up with vascular surgery Malnutrition risk: High consider high-protein diet dietitian evaluation and follow-up in general 1.5 g protein per KG body weight Fluid restriction: 1200 cc per day not to exceed more than that Adequately counseled and educated about other hospital related issues as well Labs were discussed with patient and simple Swedish Patient does appear to have good understanding of all the dialysis related issues We'll continue to follow and make recommendation from renal standpoint Objective - Vital Signs Vital signs: Vital Signs - 12hr 08/06/18 08/06/18 08/06/18 22:52 22:56 23:24 Temperature Pulse Rate 77 Pulse Rate [ 80 Right Radial] Respiratory 16 Rate Blood Pressure 92/55 92/55 O2 Sat by Pulse Oximetry 08/06/18 08/07/18 23:55 06:35 Temperature 97.7 F 97.5 F L Pulse Rate 80 Pulse Rate [ Right Radial] Respiratory 16 16 Rate Blood Pressure 91/55 87/50 O2 Sat by Pulse 96 Oximetry - Lab 08/06/18 05:17 08/06/18 05:17 Most recent lab results Calcium 8.7 mg/dL (8.4-10.2) 08/06/18 05:17 Phosphorus 6.40 mg/dL (2.5-4.5) H 08/05/18 14:05 Magnesium 1.80 mg/dL (1.7-2.3) 08/05/18 14:05 Medications & Allergies - Medications Allergies/Adverse Reactions: Allergies No Known Allergies Allergy (Verified 08/05/18 13:36) Home Medications: Home Medications Medication Instructions Recorded Confirmed Last Taken Type Aspirin EC [Aspirin Enteric Coated 81 mg PO QDAY #30 tablet 07/22/17 04/23/18 02/17/18 Rx TAB] 81mg Labetalol [Normodyne TAB] 200 mg PO BID #60 tablet 12/04/17 05/04/18 Unknown Rx amLODIPine [Norvasc] 10 mg PO QDAY #30 tablet 12/04/17 04/23/18 Unknown Rx Apixaban [Eliquis] 2.5 mg PO BID 60 Days tablet 02/22/18 04/23/18 Unknown Rx AtorvaSTATin [Lipitor] 20 mg PO QHS #30 tablet 02/22/18 04/23/18 Unknown Rx Insulin Glargine,Hum.rec.anlog 20 unit SQ QHS #30 insuln.pen 02/22/18 04/23/18 Unknown Rx [Lantus Solostar] Lispro Insulin [Humalog] 0 unit SUB-Q ACHS units 02/22/18 04/23/18 Unknown Rx levETIRAcetam [Keppra TAB] 500 mg PO BID #90 tablet 02/22/18 04/23/18 Unknown Rx hydrALAZINE [Apresoline TAB] 100 mg PO TID 04/23/18 04/23/18 Unknown History Prednisone [predniSONE 5 mg (6-Day 5 mg PO .TAPER #1 tab.ds.pk 04/29/18 Unknown Rx Pack, 21 Tabs)] Active Medications: Generic Name Dose Route Start Last Admin Trade Name Freq PRN Reason Stop Dose Admin Acetaminophen 650 mg 08/05/18 22:18 Tylenol PO Q4H PRN Pain MILD(1-3)/Fever >100.5/POWERS Amlodipine Besylate 10 mg 08/06/18 10:00 08/06/18 13:48 Norvasc PO 10 mg QDAY CECILE Administration Apixaban 2.5 mg 08/05/18 23:00 08/06/18 22:38 Eliquis PO 2.5 mg BID CECILE Administration Protocol Aspirin 81 mg 08/06/18 10:00 08/06/18 13:48 Halfprin Ec PO 81 mg QDAY CECILE Administration Atorvastatin Calcium 20 mg 08/06/18 22:00 08/06/18 22:38 Lipitor PO 20 mg QHS CECILE Administration Famotidine 10 mg 08/06/18 10:00 08/06/18 22:38 Pepcid PO 10 mg BID CECILE Administration Hydralazine HCl 100 mg 08/06/18 08:00 08/06/18 22:52 Apresoline PO Not Given TID CECILE Hydromorphone HCl 0.5 mg 08/05/18 22:18 Dilaudid IV Q3H PRN Pain , Severe (7-10) Sodium Chloride 100 mls @ 999 mls/hr 08/06/18 11:27 Nacl 0.9% IV MIRI PRN Hypotension Insulin Glargine 20 units 08/06/18 22:00 08/06/18 22:39 Lantus SUB-Q 20 units QHS CECILE Administration Insulin Human Lispro 0 unit 08/06/18 07:30 08/06/18 22:42 Humalog SUB-Q 2 unit ACHS CECILE Administration Protocol Labetalol HCl 200 mg 08/06/18 10:00 08/06/18 22:52 Normodyne PO Not Given BID [facility] Levetiracetam 500 mg 08/06/18 10:00 08/06/18 22:38 Keppra PO 500 mg BID CECILE Administration Ondansetron HCl 4 mg 08/05/18 22:18 Zofran IV Q8H PRN Nausea And Vomiting Oxycodone/Acetaminophen 1 tab 08/05/18 22:18 Percocet 5/325 PO Q6H PRN Pain, Moderate (4-6) Sodium Chloride 10 ml 08/06/18 10:00 08/06/18 22:42 Sodium Chloride Flush Syringe 10 Ml IV 10 ml BID CECILE Administration Sodium Chloride 10 ml 08/05/18 22:18 Sodium Chloride Flush Syringe 10 Ml IV PRN PRN LINE FLUSH
[2018-08-07] MEDS ORDERED: APRESOLINE PO SCH (08:49)
[2018-08-07] MEDS: HALFPRIN EC PO SCH (10:00)
[2018-08-07] MEDS: KEPPRA PO SCH (10:00)
[2018-08-07] MEDS: NORMODYNE PO SCH (10:00)
[2018-08-07] MEDS: PEPCID PO SCH (10:00)
[2018-08-07] MEDS: ELIQUIS PO SCH (10:00)
[2018-08-07] MEDS: NORVASC PO SCH (10:00)
[2018-08-07] MEDS ORDERED: NACL 0.9 (PRIMING MACHINE ONLY DIALYSIS) MC ONE (13:11)
[2018-08-07 16:31] VITALS: BP 123/73
--- NOTE | 2018-08-07 17:41 | Discharge Summary ---
Providers - Providers Date of Admission: 08/05/18 22:19 Date of discharge: 08/07/18 Attending physician: KERRIE MOLINA 08/05/18 Consult to Case Management [CONS] Routine Services Needed at Discharge: Home Health Services Notified:: copy left for 08/05/18 18:14 Consult to Physician [CONS] Routine Comment: Consulting Provider: JUNIOR CABRERA Physician Instructions: Reason For Exam: Volume overload Primary care physician: MARINA SANCHEZ Hospitalization Condition: Fair Hospital course: (1) CHF exacerbation Current Visit: No Status: Acute Qualifiers: Qualified Code(s): I50.9 - Heart failure, unspecified Plan to address problem: Acute diastolic failure Volume overload Improved with HD (2) ESRD (end stage renal disease) on dialysis Current Visit: Yes Status: Chronic Plan to address problem: Non compliant Cont HD Counselled (3) Hyperammonemia Current Visit: Yes Status: Chronic Plan to address problem: On Lactulose Improved (4) A-fib Current Visit: Yes Status: Chronic Qualifiers: Atrial fibrillation type: chronic Qualified Code(s): I48.2 - Chronic atrial fibrillation Plan to address problem: Cont Eliquis (5) HTN (hypertension) Current Visit: Yes Status: Chronic Qualifiers: Hypertension type: essential hypertension Qualified Code(s): I10 - Essential (primary) hypertension Plan to address problem: Cont antihypertensives (6) Seizure disorder Current Visit: Yes Status: Chronic Plan to address problem: Cont PO Keppra (7) IDDM (insulin dependent diabetes mellitus) Current Visit: Yes Status: Chronic Plan to address problem: Cont Home Insulin and coverage (8) UTI (urinary tract infection) Current Visit: Yes Status: Acute Qualifiers: Urinary tract infection type: acute cystitis Plan to address problem: on abx F/u with Nephrology and PCP in one week Disposition: DC-01 TO HOME OR SELFCARE - Discharge Diagnoses (1) CHF exacerbation Status: Acute Qualifiers: Qualified Code(s): I50.9 - Heart failure, unspecified (2) ESRD (end stage renal disease) on dialysis Status: Chronic (3) Hyperammonemia Status: Chronic (4) A-fib Status: Chronic Qualifiers: Atrial fibrillation type: chronic Qualified Code(s): I48.2 - Chronic atrial fibrillation (5) HTN (hypertension) Status: Chronic Qualifiers: Hypertension type: essential hypertension Qualified Code(s): I10 - Essential (primary) hypertension (6) Seizure disorder Status: Chronic (7) IDDM (insulin dependent diabetes mellitus) Status: Chronic (8) UTI (urinary tract infection) Status: Acute Qualifiers: Urinary tract infection type: acute cystitis (9) DVT prophylaxis Status: Acute Core Measure Documentation - Palliative Care Palliative Care/ Comfort Measures: Not Applicable - Core Measures Any of the following diagnoses?: heart failure - Heart Failure Discharge Requirements TEOFILO/ARB for LVSD if EF <40%: Yes Beta natividad at discharge: Yes Exam - Constitutional Vitals: Temp Pulse Resp BP Pulse Ox 97.7 F 76 16 123/73 95 08/07/18 16:00 08/07/18 16:00 08/07/18 16:00 08/07/18 16:00 08/07/18 11:49 General appearance: Present: no acute distress, well-nourished - EENT Eyes: Present: PERRL ENT: hearing intact, clear oral mucosa - Neck Neck: Present: supple, normal ROM - Respiratory Respiratory effort: normal Respiratory: bilateral: CTA - Cardiovascular Heart rate: 88 Rhythm: irregularly irregular Heart Sounds: Present: S1 & S2. Absent: rub, click - Extremities Extremities: no ischemia, pulses intact, pulses symmetrical, No edema Peripheral Pulses: within normal limits - Abdominal General gastrointestinal: Present: soft, non-tender, non-distended, normal bowel sounds Female genitourinary: Present: normal - Integumentary Integumentary: Present: clear, warm, dry - Musculoskeletal Musculoskeletal: gait normal, strength equal bilaterally - Psychiatric Psychiatric: appropriate mood/affect, intact judgment & insight - Neurologic Neurologic: CNII-XII intact, moves all extremities - Allied Health Allied health notes reviewed: nursing, case management Plan Activity: no restrictions Diet: renal Follow up with: MARINA SANCHEZ MD [Primary Care Provider] - 3-5 Days
== END 2018-08-07 18:30 | disposition home or self-care (01) | DRG 291 ==
LOC: ED 13:35 → 3A 22:19
PROVIDERS: ADMIT Internal Medicine; ATTEND Internal Medicine
PROC: 5A1D70Z Performance of Urinary Filtration, Intermittent, Less than 6 Hours Per Day (ICD-10-PCS; principal; 2018-08-06)
PROC: 5A1D70Z Performance of Urinary Filtration, Intermittent, Less than 6 Hours Per Day (ICD-10-PCS; 2018-08-07)
DX: I13.2 Hypertensive heart and chronic kidney disease with heart failure and with stage 5 chronic kidney disease, or end stage renal disease (principal); I50.31 Acute diastolic (congestive) heart failure; N18.6 End stage renal disease; J44.9 Chronic obstructive pulmonary disease, unspecified; E11.22 Type 2 diabetes mellitus with diabetic chronic kidney disease; I25.2 Old myocardial infarction; E11.319 Type 2 diabetes mellitus with unspecified diabetic retinopathy without macular edema; E72.20 Disorder of urea cycle metabolism, unspecified; E11.51 Type 2 diabetes mellitus with diabetic peripheral angiopathy without gangrene; E87.2 Acidosis; I48.2 Chronic atrial fibrillation; G40.909 Epilepsy, unspecified, not intractable, without status epilepticus; N30.00 Acute cystitis without hematuria; D63.1 Anemia in chronic kidney disease; N25.81 Secondary hyperparathyroidism of renal origin; Z79.4 Long term (current) use of insulin; Z99.2 Dependence on renal dialysis; Z86.73 Personal history of transient ischemic attack (TIA), and cerebral infarction without residual deficits; Z98.41 Cataract extraction status, right eye; Z98.42 Cataract extraction status, left eye
CPT/HCPCS: 36415; 71046; 80053; 81001; 81025; 82140; 82962; 83036; 83735; 83880; 84100; 85025; 85027; 93005; 93010; G0378; A9270-GY; J1815; J7030